=== PATIENT | female | born 1960 | race Caucasian/White ===

== ENCOUNTER → 2016-06-30 | Outpatient (CLI) | payer OTHER ==
[~2016-06-30] MED LIST: ACET-1311 PO; ADVIN50/60 INH; ALBU1AER9 INH; ALBU1NEB10 NEB; ATV5X PO; CALC-20 PO; CHOL100027 PO; CYCL10TA6 PO; CZR25 PO; GABA1CAP4 PO; NTRGSL/4 UT; PLV75 PO; PRT/40 PO; SNG10 PO; TIOTCAP INH; TPRSR/25 PO; VLT50 PO; ZCR40 PO
[2016-06-30 17:49] LABS: BLOOD UREA NITROGEN 7 mg/dl (7-18); BUN/CREATININE RATIO 9.9 (10-20); CALCIUM 9.2 mg/dl (8.5-10.1); CARBON DIOXIDE 32 mmol/L (21-32); CHLORIDE 103 mmol/L (98-107); CREATININE 0.71 mg/dl (0.60-1.20); GLUCOSE 88 mg/dl (70-99); POTASSIUM 4.7 mmol/L (3.5-5.1); SODIUM 141 mmol/L (136-145)
[2016-07-04 01:32] LABS: CK TOTAL 24 U/L (29-143); CK-BB None Detected (None Detected); CK-MB 0 % (<5); CK-MM 100 % (95-100)
== END | disposition home or self-care (01) ==
LOC: C.LABPBG 12:01
PROVIDERS: ATTEND Neuromusculoskeletal Medicine & OMM
DX: M79.669 Pain in unspecified lower leg (principal)

== ENCOUNTER → 2016-07-28 | Outpatient (CLI) | payer OTHER ==
--- NOTE | 2016-07-28 12:35 | DIAGNOSTIC IMAGING REPORT ---
LEFT ANKLE MIN 3 VIEWS ROUTINE CLINICAL HISTORY: M25.579 Ankle [id number] pain COMPARISON: None. DISCUSSION: The bones and joint spaces appear intact. There is no evidence of fracture, dislocation or bony disease. There is no evidence for soft tissue swelling. IMPRESSION: Negative study. Electronically signed by: James Escobedo M.D. 07/28/2016 12:33 PM Dictated Date/Time: 07/28/2016 12:33 PM
== END | disposition home or self-care (01) ==
LOC: C.RAD1850 11:57
PROVIDERS: ATTEND Internal Medicine
DX: M25.572 Pain in left ankle and joints of left foot (principal)

== ENCOUNTER → 2016-08-08 | Outpatient (CLI) | payer OTHER ==
[~2016-08-08] MED LIST changes: +ADVIN25/60 INH; +ALBINS/ INH; +LINA1CAP PO; +PANT40TA2 PO; -PRT/40 PO; +UMEC1INH PO; +VNTHFA/IN INH
--- NOTE | 2016-08-08 11:07 | DIAGNOSTIC IMAGING REPORT ---
DELAYED BONE SCAN OF THE ANKLES AND FEET CLINICAL HISTORY: Left ankle pain and swelling. Evaluate for fracture. COMPARISON STUDY: Left ankle radiographs July 28, 2016. TECHNIQUE: 26.544 mCi of technetium 99m MDP was injected IV at 7:50 AM on August 08, 2016. 3 hours following injection, imaging of the ankles and feet was performed in multiple projections. FINDINGS: There is slight asymmetric increased radiotracer uptake within the left midfoot. This is likely due to mild arthritis. There are no foci of radiotracer uptake to suggest a fracture within the left ankle. IMPRESSION: 1. No evidence of fracture within the left ankle. 2. A few punctate foci of radiotracer uptake within the left midfoot which suggests mild arthritis. Electronically signed by: Peter Alexandre M.D. 08/08/2016 11:05 AM Dictated Date/Time: 08/08/2016 11:02 AM
== END | disposition home or self-care (01) ==
LOC: C.NUCL 07:42
PROVIDERS: ATTEND Physician Assistant Medical
DX: M25.473 Effusion, unspecified ankle (principal); M25.579 Pain in unspecified ankle and joints of unspecified foot

== ENCOUNTER → 2016-11-11 | Outpatient (CLI) | payer OTHER ==
[~2016-11-11] MED LIST changes: -ADVIN25/60 INH; -ALBINS/ INH; -LINA1CAP PO; -PANT40TA2 PO; +PRT/40 PO; -UMEC1INH PO; -VNTHFA/IN INH
[2016-11-11 16:24] LABS: BASO % 0.4 %; BASO ABS # 0.03 K/uL (0-0.2); COMPLETE YES; EOS % 1.9 %; HEMATOCRIT 45.5 % (37-47); IG% 0.3 %; LYMPH % 23.1 %; LYMPH ABS # 1.68 K/uL (1.2-3.4); MEAN CELL VOLUME 91.9 fL (80-100); MEAN CORPUSCULAR HEMOGLOBIN 28.7 pg (25-34); MEAN CORPUSCULAR HGB CONC 31.2 g/dl (32-36); MEAN PLATELET VOLUME 10.3 fL (7.4-10.4); MONO % 7.2 %; NEUT % 67.1 %; PLATELET COUNT 255 K/uL (130-400); RED BLOOD COUNT 4.95 M/uL (4.2-5.4); WHITE BLOOD COUNT 7.26 K/uL (4.8-10.8)
[2016-11-11 16:33] LABS: ALT/SGPT 14 U/L (12-78); AST/SGOT 10 U/L (15-37); BLOOD UREA NITROGEN 6 mg/dl (7-18); BUN/CREATININE RATIO 7.6 (10-20); CALCIUM 9.2 mg/dl (8.5-10.1); CARBON DIOXIDE 33 mmol/L (21-32); CHLORIDE 102 mmol/L (98-107); CREATININE 0.73 mg/dl (0.60-1.20); GLUCOSE 89 mg/dl (70-99); POTASSIUM 3.6 mmol/L (3.5-5.1); SODIUM 142 mmol/L (136-145)
[2016-11-11 16:44] LABS: ALB/GLOB RATIO 0.9 (0.9-2); ALKALINE PHOSPHATASE 161 U/L (45-117)
--- NOTE | 2016-11-21 09:11 | CODING QUERY MEDICAL NECESSITY ---
SUPPORTING DIAGNOSIS NEEDED A supporting diagnosis is required for the test/procedure performed on this patient in order for us to be reimbursed by the patient's insurance. Please provide a supporting diagnosis for the following test/procedure listed below next to the test name along with your signature. *If there is no additional diagnosis for this patient that would support the following test/procedure please document that below next to the test/procedure. Test(s)/Procedure(s) that require a supporting diagnosis: * VITAMIN D, 25- HYDROXY DIAGNOSIS: * VITAMIN B12 DIAGNOSIS: Provider Signature: Date: Thank you Cyn Burnham [employer] Once completed, please kindly fax back to [phone] For questions please call [phone]
== END | disposition home or self-care (01) ==
LOC: C.LABBFT 12:30
PROVIDERS: ATTEND Physician Assistant Medical
DX: E78.5 Hyperlipidemia, unspecified (principal)

== ENCOUNTER → 2016-11-14 | Outpatient (CLI) | payer OTHER ==
[2016-11-17 09:22] LABS: METHYLMALONIC ACID 227 NMOL/L (87-318)
== END | disposition home or self-care (01) ==
LOC: C.LABPBG 12:55
PROVIDERS: ATTEND Physician Assistant Medical
DX: E53.8 Deficiency of other specified B group vitamins (principal)

== ENCOUNTER → 2017-04-05 | Outpatient (CLI) | payer OTHER ==
[~2017-04-05] MED LIST changes: -ACET-1311 PO; +ALBINS/ INH; -ALBU1AER9 INH; -ALBU1NEB10 NEB; -CYCL10TA6 PO; +LINA1CAP PO; +PANT40TA2 PO; -PRT/40 PO; -TIOTCAP INH; +UMEC1INH PO; -VLT50 PO; +VNTHFA/IN INH; -ZCR40 PO
[2017-04-05 17:59] LABS: THYROID STIMULATING HORMONE 1.79 uIu/ml (0.300-4.500)
== END | disposition home or self-care (01) ==
LOC: C.LABPBG 12:15
PROVIDERS: ATTEND Physician Assistant Medical
DX: R63.4 Abnormal weight loss (principal)

== ENCOUNTER → 2017-04-10 | Outpatient (CLI) | payer OTHER ==
--- NOTE | 2017-04-10 09:48 | DIAGNOSTIC IMAGING REPORT ---
ABDOMEN 2VIEW W/PA CHEST RTN CLINICAL HISTORY: R63.4 Weight [id number] pain COMPARISON STUDY: 03/30/2017 FINDINGS: Findings of prior median sternotomy. No focal infiltrate. Diaphragms smooth but somewhat flattened. Bowel pattern is nonobstructive. No abnormal calcifications. IMPRESSION: Negative study of the abdomen. No acute process of the chest. The above report was generated using voice recognition software. It may contain grammatical, syntax or spelling errors. Electronically signed by: James Escobedo M.D. 04/10/2017 9:47 AM Dictated Date/Time: 04/10/2017 9:46 AM
== END | disposition home or self-care (01) ==
LOC: C.RAD 09:12
PROVIDERS: ATTEND Physician Assistant Medical
DX: R63.4 Abnormal weight loss (principal)

== ENCOUNTER → 2017-04-14 | Outpatient (CLI) | payer OTHER ==
[~2017-04-14] MED LIST changes: +OPTIRAY 320 IV PRN
--- NOTE | 2017-04-14 15:58 | DIAGNOSTIC IMAGING REPORT ---
CHEST CT WITH CONTRAST CT DOSE: 366.21 mGycm HISTORY: F17.200 Nicotine [id number] Weight lossR63.0 Decreased appe TECHNIQUE: Multiaxial CT images of the chest were performed following the intravenous administration of contrast. A dose lowering technique was utilized adhering to the principles of ALARA. COMPARISON: Chest CTA 08/18/2014. FINDINGS: The central airways are patent. Moderate emphysema. No pleural effusions. No pneumothorax. Stable 6 mm groundglass nodular density within the right middle lobe on image 170. This may represent a small area of scarring given the stability. Suture material within the right lower lobe is again noted. This remains unchanged. No new focal lung consolidations. There are poststernotomy changes. There are 2 hypervascular lesion seen within the right hepatic lobe with the largest measuring 9 mm. These are too small to characterize but may represent flash filling hemangiomas. The spleen and adrenal glands are unremarkable. A few subcentimeter hypodense nodules within the thyroid gland with associated coarse calcifications. No mediastinal or hilar lymphadenopathy. Normal caliber thoracic aorta. The heart is normal in size. The main pulmonary arteries are patent. IMPRESSION: 1. No significant change compared to the prior study. 2. Moderate emphysema. 3. Stable 6 mm groundglass nodular density within the right middle lobe. This may represent a small area of scarring given the stability. 4. There are 2 hypervascular lesions seen within the right hepatic lobe with the largest measuring 9 mm. These are too small to characterize but may represent flash filling hemangiomas. Electronically signed by: Amandeep Urrutia M.D. 04/14/2017 3:57 PM Dictated Date/Time: 04/14/2017 3:39 PM
--- NOTE | 2017-04-14 16:05 | DIAGNOSTIC IMAGING REPORT ---
ABD/PELVIS IV AND ORAL CONT CLINICAL HISTORY: 56 years-old Female presenting with F17.200 Nicotine [id number] Weight lossR63.0 decreased appetite. TECHNIQUE: Multidetector CT of the abdomen and pelvis was performed after the administration of oral and intravenous contrast. IV contrast: 93 mL of Optiray 320. A dose lowering technique was used consistent with the principles of ALARA (as low as reasonably achievable). COMPARISON: Noncontrast CT from 05/26/2013 and contrast-enhanced CT from 2010. CT DOSE (mGy.cm): The estimated cumulative dose is 366.21) of of the CT chest. 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 Lung bases: Mosaic attenuation could suggest small airways disease. Nodular and linear opacities suggestive of scarring in the lateral basal segment of the right lower lobe. Normal heart size. No pericardial or pleural effusion. Liver: Normal morphology. Focal fat or perfusional variation along the fissure for the ligamentum teres. No other focal lesion. Patent hepatic vasculature. Biliary: Mild intrahepatic biliary ductal prominence. No extrahepatic biliary ductal dilatation. Normal gallbladder. Pancreas: Mild prominence of the pancreatic duct, which measures 2 mm in the pancreatic body tail junction. Spleen: Few parenchymal calcifications evident in the spleen likely indicating prior granulomatous infection. Adrenal glands: Normal. Kidneys and ureters: Normal. No hydronephrosis. Bladder: Incompletely evaluated secondary to underdistention. Pelvic organs: Uterus surgically absent. Bowel: Normal appendix. No bowel obstruction. Peritoneal cavity: No free fluid or intraperitoneal gas. Lymph nodes: No enlarged lymph nodes in the abdomen or pelvis. Vasculature: Atherosclerosis of the normal caliber abdominal aorta. IVC patent. Abdominal wall: Normal. Musculoskeletal: Normal. IMPRESSION: 1. No acute intra-abdominal pathology. No convincing evidence of intra-abdominal malignancy. Electronically signed by: Jason De Oliveira M.D. 04/14/2017 4:04 PM Dictated Date/Time: 04/14/2017 3:56 PM
== END | disposition home or self-care (01) ==
LOC: C.CTS 13:34
PROVIDERS: ATTEND Physician Assistant Medical
DX: J43.9 Emphysema, unspecified (principal); R91.8 Other nonspecific abnormal finding of lung field; K76.9 Liver disease, unspecified; F17.200 Nicotine dependence, unspecified, uncomplicated; R63.0 Anorexia; R83.4 Abnormal immunological findings in cerebrospinal fluid

== ENCOUNTER → 2017-07-04 | Outpatient (CLI) | payer OTHER ==
[~2017-07-04] MED LIST changes: -CZR25 PO; +GABA-1219 PO; -GABA1CAP4 PO; -OPTIRAY 320 IV PRN; +OXYC1CAP5 PO
--- NOTE | 2017-07-04 10:28 | DIAGNOSTIC IMAGING REPORT ---
ULTRASOUND RIGHT UPPER QUADRANT ABDOMEN CLINICAL HISTORY: Right upper quadrant abdominal pain. COMPARISON STUDY: Abdominal CT dated 04/14/2017. TECHNIQUE: Real-time, grayscale, and color flow sonography of the right upper quadrant of the abdomen was performed. Images are reviewed in the transverse and longitudinal planes. FINDINGS: Liver: The liver is normal in size and echotexture. There is no intrahepatic biliary ductal dilatation. The main portal vein is patent. Gallbladder: The gallbladder is normal in appearance. No gallstones are identified. There is no gallbladder wall thickening or pericholecystic fluid. A sonographic Calderon's sign is reportedly absent. The common bile duct measures up to 0.7 cm in diameter. Pancreas: Visualized portions of the pancreatic head and body are normal in appearance. The splenic vein is patent. Right kidney: Survey images of the right kidney demonstrate normal size and echotexture. There is no hydronephrosis. Ascites: None. IMPRESSION: Unremarkable sonographic assessment of the right upper quadrant. No gallstones are identified. Electronically signed by: Mack Perez M.D. 07/04/2017 10:27 AM Dictated Date/Time: 07/04/2017 10:26 AM
== END | disposition home or self-care (01) ==
LOC: C.ULTR 09:25
PROVIDERS: ATTEND Physician Assistant Medical
DX: R10.11 Right upper quadrant pain (principal)

== ENCOUNTER → 2017-07-25 | Outpatient (CLI) | payer OTHER ==
[~2017-07-25] MED LIST changes: +SINCALIDE IV SCH; +SODIUM CHLORIDE 0.9% IV SCH
--- NOTE | 2017-07-25 14:53 | DIAGNOSTIC IMAGING REPORT ---
NUCLEAR HEPATOBILIARY SCAN WITH EJECTION FRACTION IMAGING CLINICAL HISTORY: Right upper quadrant abdominal pain. COMPARISON STUDY: Abdominal ultrasound dated 07/04/2017. TECHNIQUE: Dynamic images of the liver and anterior abdomen were obtained every 5 minutes for a total of 60 minutes following the IV administration of 5.5mCi of technetium 99m Choletec. 0.2 mcg of sincalide was then injected with additional images acquired every 5 minutes for 15 minutes to calculate the gallbladder ejection fraction. Ejection fraction was calculated at 17 minutes. The patient developed cramping due to sincalide administration. The examination is discontinued at this time. FINDINGS: The hepatobiliary scan shows prompt and homogeneous hepatic uptake. There is visualized activity within the intra and extrahepatic biliary tree at 10 minutes, and within the gallbladder at 15 minutes. There is normal biliary to bowel transit, with small bowel visualized by 25 minutes. On the sincalide imaging, the gallbladder ejection fraction was measured at 81%. IMPRESSION: 1. Unremarkable nuclear hepatobiliary scan. There is no scintigraphic evidence of cholecystitis. 2. The gallbladder ejection fraction measured 81% by 17 minutes which is normal. 3. The patient developed abdominal cramping due to sincalide administration and the examination was discontinued. Electronically signed by: Mack Perez M.D. 07/25/2017 2:51 PM Dictated Date/Time: 07/25/2017 2:49 PM
== END | disposition home or self-care (01) ==
LOC: C.NUCL 12:47
PROVIDERS: ATTEND Physician Assistant Medical
DX: R10.11 Right upper quadrant pain (principal)

== ENCOUNTER → 2017-08-11 | Outpatient (CLI) | payer OTHER ==
[~2017-08-11] MED LIST changes: +OPTIRAY 320 IV PRN; -SINCALIDE IV SCH; -SODIUM CHLORIDE 0.9% IV SCH
[2017-08-11 14:48] LABS: BASO % 0.8 %; BASO ABS # 0.05 K/uL (0-0.2); EOS % 1.6 %; HEMATOCRIT 45.7 % (37-47); HEMOGLOBIN 14.7 g/dL (12.0-16.0); IG# 0.01 K/uL (0.00-0.02); LYMPH % 26.9 %; LYMPH ABS # 1.69 K/uL (1.2-3.4); MEAN CELL VOLUME 88.7 fL (80-100); MEAN CORPUSCULAR HEMOGLOBIN 28.5 pg (25-34); MEAN CORPUSCULAR HGB CONC 32.2 g/dl (32-36); MEAN PLATELET VOLUME 11.3 fL (7.4-10.4); MONO % 6.7 %; MONO ABS # 0.42 K/uL (0.11-0.59); NEUT % 63.8 %; NEUT ABS # 4.02 K/uL (1.4-6.5); PLATELET COUNT 229 K/uL (130-400); RED CELL DISTRIBUTION WIDTH CV 13.6 % (11.5-14.5); RED CELL DISTRIBUTION WIDTH SD 44.8 fL (36.4-46.3); WHITE BLOOD COUNT 6.29 K/uL (4.8-10.8)
--- NOTE | 2017-08-11 14:49 | DIAGNOSTIC IMAGING REPORT ---
CT OF THE ABDOMEN AND PELVIS WITH CONTRAST CLINICAL HISTORY: Right upper quadrant abdominal pain and weight loss. COMPARISON STUDY: CT of the abdomen and pelvis April 14, 2017 and right upper quadrant ultrasound July 04, 2017. TECHNIQUE: Following IV administration of 94 mL of Optiray-320, axial images of the abdomen and pelvis were obtained from the lung bases to the proximal femurs. Images were reviewed in the axial, sagittal, and coronal planes. IV contrast was administered without complication. A dose lowering technique was utilized adhering to the principles of ALARA. Oral contrast was administered. CT DOSE: 240.77 mGy.cm FINDINGS: Subpleural opacity within the lateral basilar segment of the right lower lobe is unchanged since exam of August 18, 2014. This likely reflects scarring. No pneumatosis, free air or portal venous gas is present. Liver, spleen, adrenal glands, kidneys and pancreas are unremarkable. There is no biliary or pancreatic ductal dilatation. There is no peripancreatic or pericholecystic infiltration. There is moderate plaque of the abdominal aorta which is normal in caliber. There is no hydronephrosis. The caliber and wall thickness of small and large bowel are normal. There is decreased sensitivity for detection of mucosal lesions given CT technique but none identified. The appendix is normal. There is no lymphadenopathy or ascites. No suspicious osseous lesion is present. No ascites is present. IMPRESSION: 1. No acute process within the abdomen or pelvis. 2. No bowel obstruction. Normal appendix. 3. No abdominal or pelvic lymphadenopathy. 4. Moderate atherosclerotic plaque of the abdominal aorta and branch vessels. Patent mesenteric vessels. Electronically signed by: Peter Alexandre M.D. 08/11/2017 2:48 PM Dictated Date/Time: 08/11/2017 2:40 PM
[2017-08-11 15:27] LABS: ALBUMIN 3.8 gm/dl (3.4-5.0); ALT/SGPT 16 U/L (12-78); AST/SGOT 16 U/L (15-37); BLOOD UREA NITROGEN 5 mg/dl (7-18); CALCIUM 9.5 mg/dl (8.5-10.1); CARBON DIOXIDE 35 mmol/L (21-32); CREATININE 0.78 mg/dl (0.60-1.20); GLUCOSE 95 mg/dl (70-99); LIPASE 72 U/L (73-393); POTASSIUM 4.8 mmol/L (3.5-5.1); SODIUM 139 mmol/L (136-145)
[2017-08-11 15:30] LABS: ALKALINE PHOSPHATASE 153 U/L (45-117); TOTAL PROTEIN 7.8 gm/dl (6.4-8.2)
== END | disposition home or self-care (01) ==
LOC: C.CTS 14:06
PROVIDERS: ATTEND Surgery
DX: R63.4 Abnormal weight loss (principal); R10.11 Right upper quadrant pain; I70.0 Atherosclerosis of aorta

== ENCOUNTER → 2017-09-11 | Outpatient (CLI) | payer OTHER ==
[~2017-09-11] MED LIST changes: -OPTIRAY 320 IV PRN
== END | disposition home or self-care (01) ==
LOC: C.MAMM 13:06
PROVIDERS: ATTEND Physician Assistant Medical
DX: M85.89 Other specified disorders of bone density and structure, multiple sites (principal); M81.0 Age-related osteoporosis without current pathological fracture

== ENCOUNTER 2017-11-26 09:34 | Inpatient (IN) | payer OTHER ==
[~2017-11-26] VITALS: Ht 152.4 cm; Wt 43.7 kg
[~2017-11-26 09:34] MED LIST changes: +CYAN100020 PO
[2017-11-26 10:16] LABS: BASO % 0.5 %; BASO ABS # 0.03 K/uL (0-0.2); EOS % 0.7 %; EOS ABS # 0.04 K/uL (0-0.5); HEMATOCRIT 45.6 % (37-47); HEMOGLOBIN 14.5 g/dL (12.0-16.0); IG# 0.02 K/uL (0.00-0.02); LYMPH % 13.8 %; LYMPH ABS # 0.81 K/uL (1.2-3.4); MEAN CORPUSCULAR HEMOGLOBIN 26.7 pg (25-34); MEAN CORPUSCULAR HGB CONC 31.8 g/dl (32-36); MEAN PLATELET VOLUME 10.4 fL (7.4-10.4); MONO % 12.2 %; MONO ABS # 0.72 K/uL (0.11-0.59); NEUT % 72.5 %; NEUT ABS # 4.27 K/uL (1.4-6.5); PLATELET COUNT 295 K/uL (130-400); RED CELL DISTRIBUTION WIDTH CV 14.8 % (11.5-14.5); RED CELL DISTRIBUTION WIDTH SD 45.2 fL (36.4-46.3); WHITE BLOOD COUNT 5.89 K/uL (4.8-10.8)
--- NOTE | 2017-11-26 10:24 | DIAGNOSTIC IMAGING REPORT ---
CHEST ONE VIEW PORTABLE CLINICAL HISTORY: Evaluate Fever/Sepsis dyspnea COMPARISON STUDY: 04/10/2017 FINDINGS: Mild cardia megaly post median sternotomy. Small bilateral pleural effusions. Mild prominence of pulmonary vasculature. IMPRESSION: Congestive heart failure The above report was generated using voice recognition software. It may contain grammatical, syntax or spelling errors. Electronically signed by: James Escobedo M.D. 11/26/2017 10:23 AM Dictated Date/Time: 11/26/2017 10:22 AM
[2017-11-26 10:34] LABS: INR 1.2 (0.9-1.1); PTT PATIENT 25.1 SECONDS (21.0-31.0)
[2017-11-26 10:46] LABS: ALBUMIN 2.6 gm/dl (3.4-5.0); CALCIUM 7.3 mg/dl (8.5-10.1); CKMB 1.4 ng/ml (0.5-3.6); CREATININE 0.94 mg/dl (0.60-1.20); POTASSIUM 3.6 mmol/L (3.5-5.1); TOTAL PROTEIN 6.9 gm/dl (6.4-8.2)
[2017-11-26] MEDS ORDERED: GABA-113 PO ×2 (10:53)
[2017-11-26] MEDS ORDERED: FUROSEMIDE 40 MG/4 ML VIAL IV STA (11:25)
--- NOTE | 2017-11-26 11:28 | DIAGNOSTIC IMAGING REPORT ---
VENOUS DOPPLER LWR EXT BILA HISTORY: Pain. Edema. swelling COMPARISON STUDY: None. FINDINGS: There is normal compressibility, flow, and augmentation within the bilateral lower extremity deep venous systems. IMPRESSION: No DVT within the right or left lower extremity. The above report was generated using voice recognition software. It may contain grammatical, syntax or spelling errors. Electronically signed by: James Escobedo M.D. 11/26/2017 11:27 AM Dictated Date/Time: 11/26/2017 11:27 AM
--- NOTE | 2017-11-26 11:31 | EMERGENCY ROOM VISIT NOTE ---
History Report prepared by Jaswinder: Nicole Sweet Under the Supervision of: Dr. Bryant Skinner D.O. First contact with patient: 09:58 Chief Complaint: SWELLING TO EXTREMITY Stated Complaint: FEET/ANKLE SWELLING AND BURNING AND R EYE SWOLLEN History of Present Illness The patient is a 57 year old female who presents to the Emergency Room with complaints of swelling in her feet and ankles that has worsened over the past 2 weeks. She notes that she could not put on her shoes yesterday, and she states that this morning the right side of her face was swollen. She also notes that if she has to walk for a while, she often has to stop because her legs feel " too heavy." The patient reports she has already seen her PCP for the swelling who thought it might be due to her osteoporosis medication. The patient states that her PCP encouraged her to stop taking her osteoporosis medication to see if that alleviates the swelling. The patient states that she has not taken her osteoporosis medication in 3 weeks. The patient states that she was supposed to see her PCP again on December 07 but states that she could not wait that long as her swelling has been worsening. The patient also complains of a tingling in her lower extremities and a slight cough. She states that she has also noticed some chest tightness, but reports that she gets this tightness intermittently. She also reports that she recently gained 6 pounds. The patient denies feeling short of breath. She states that she has a history of a mitral valve repair because she had fluid building in up in her heart. Per family, the patient also has a history of gallbladder problems. The patient states that she has not had recent blood work done and denies using compression stockings. Source of History: patient Onset: 2 weeks ago Position: ankle (bilateral), foot (bilateral) Quality: tingling, other (swelling) Timing: worsening Associated Symptoms: + cough, + chest pain (tightness across chest), No SOB Note: additional symptoms: weight gain Review of Systems See HPI for pertinent positives & negatives. A total of 10 systems reviewed and were otherwise negative. Past Medical & Surgical Medical Problems: (1) Asthma (2) Bronchitis (3) Emphysema lung (4) Gallbladder problem (5) Heart disease (6) Hypertension Surgical Problems: (1) H/O: hysterectomy (2) S/P MVR (mitral valve replacement) Family History FH: hypertension FH: lung disease Heart disease Social History Smoking Status: Current Every Day Smoker Marital Status: single, Occupation Status: employed, disabled Current/Historical Medications Scheduled Calcium Carbonate-Vitamin D (Calcium 600 + D), 1 TAB PO DAILY Cholecalciferol (Vitamin D 1000 Unit), 1 TAB PO DAILY Clopidogrel Bisulfate (Clopidogrel), 75 MG PO HS Cyanocobalamin (Vitamin B12), 1 TAB PO QAM Fluticasone Prop/Salmeterol (Advair Diskus 500/50 60 Dose), 1 PUFF INH BID Gabapentin (Neurontin), 600 MG PO QAM Gabapentin (Neurontin), 900 MG PO QPM Linaclotide (Linzess), 145 MCG PO QAM Lorazepam (Lorazepam), 0.5 MG PO HS Metoprolol Succinate (Metoprolol Succinate ER), 25 MG PO QAM Montelukast Sod (Montelukast Sodium), 10 MG PO QAM Pantoprazole (Pantoprazole Sodium), 40 MG PO BID Umeclidinium [place] (Incruse Ellipta), 1 PUFF PO QAM Scheduled PRN Albuterol Hfa (Ventolin Hfa), 2-4 PUFFS INH Q6H PRN for SOB/Wheezing Albuterol Sulf (Proventil 0.083% 2.5MG/3ML), 2.5 MG INH Q4 PRN for SOB/Wheezing Nitroglycerin (Nitrostat), 0.4 MG UT UD PRN for Chest Pain Oxycodone Hcl (Oxycodone Hcl), 1-2 CAP PO QID PRN for Pain Allergies Coded Allergies: Aspirin (Verified Allergy, Mild, HIVES, 11/26/17) Hydrochlorothiazide (Unverified Allergy, Unknown, SICK IN STOMACH AND RASH , 11/26/17) Physical Exam Vital Signs Date Time Temp Pulse Resp B/P (MAP) Pulse Ox O2 Delivery O2 Flow Rate FiO2 11/26/17 11:43 91 18 171/76 97 Room Air 11/26/17 10:11 92 Room Air 11/26/17 09:46 36.8 86 16 153/52 92 Room Air Physical Exam CONSTITUTIONAL/VITAL SIGNS: Reviewed / noted above. GENERAL: Non-toxic in appearance. INTEGUMENTARY: Warm, dry, and [place]. HEAD: Normocephalic. EYES: without scleral icterus or trauma. ENT/OROPHARYNX: clear and moist. LYMPHADENOPATHY/NECK: Is supple without lymphadenopathy or meningismus. RESPIRATORY: Lungs clear and equal. CARDIOVASCULAR: Regular rate and rhythm. GI/ABDOMEN: Soft and nontender. No organomegaly or pulsatile mass. No rebound or guarding. Normal bowel sounds. EXTREMITIES: Warm and well perfused. Bilateral pedal edema involving ankles and feet. BACK: No CVA tenderness. NEUROLOGICAL: Intact without focal deficits. PSYCHIATRIC: normal affect. MUSCULOSKELETAL: Normally developed with good muscle tone. Medical Decision & Procedures ER Provider Diagnostic Interpretation: Radiology results as stated below per my review and radiologist interpretation: CHEST ONE VIEW PORTABLE CLINICAL HISTORY: Evaluate Fever/Sepsis dyspnea COMPARISON STUDY: 04/10/2017 FINDINGS: Mild cardia megaly post median sternotomy. Small bilateral pleural effusions. Mild prominence of pulmonary vasculature. IMPRESSION: Congestive heart failure The above report was generated using voice recognition software. It may contain grammatical, syntax or spelling errors. Electronically signed by: James Escobedo M.D. 11/26/2017 10:23 AM Dictated Date/Time: 11/26/2017 10:22 AM VENOUS DOPPLER LWR EXT BILA HISTORY: Pain. Edema. swelling COMPARISON STUDY: None. FINDINGS: There is normal compressibility, flow, and augmentation within the bilateral lower extremity deep venous systems. IMPRESSION: No DVT within the right or left lower extremity. The above report was generated using voice recognition software. It may contain grammatical, syntax or spelling errors. Electronically signed by: James Escobedo M.D. 11/26/2017 11:27 AM Dictated Date/Time: 11/26/2017 11:27 AM Laboratory Results 11/26/17 10:00 Red Blood Count 5.43, Mean Corpuscular Volume 84.0, Mean Corpuscular Hemoglobin 26.7, Mean Corpuscular Hemoglobin Concent 31.8, Mean Platelet Volume 10.4, Neutrophils (%) (Auto) 72.5, Lymphocytes (%) (Auto) 13.8, Monocytes (%) (Auto) 12.2, Eosinophils (%) (Auto) 0.7, Basophils (%) (Auto) 0.5, Neutrophils # (Auto ) 4.27, Lymphocytes # (Auto) 0.81, Monocytes # (Auto) 0.72, Eosinophils # (Auto ) 0.04, Basophils # (Auto) 0.03 11/26/17 10:00 Test 11/26/17 10:00 White Blood Count 5.89 K/uL (4.8-10.8) Red Blood Count 5.43 M/uL (4.2-5.4) Hemoglobin 14.5 g/dL (12.0-16.0) Hematocrit 45.6 % (37-47) Mean Corpuscular Volume 84.0 fL (80-100) Mean Corpuscular Hemoglobin 26.7 pg (25-34) Mean Corpuscular Hemoglobin Concent 31.8 g/dl (32-36) Platelet Count 295 K/uL (130-400) Mean Platelet Volume 10.4 fL (7.4-10.4) Neutrophils (%) (Auto) 72.5 % Lymphocytes (%) (Auto) 13.8 % Monocytes (%) (Auto) 12.2 % Eosinophils (%) (Auto) 0.7 % Basophils (%) (Auto) 0.5 % Neutrophils # (Auto) 4.27 K/uL (1.4-6.5) Lymphocytes # (Auto) 0.81 K/uL (1.2-3.4) Monocytes # (Auto) 0.72 K/uL (0.11-0.59) Eosinophils # (Auto) 0.04 K/uL (0-0.5) Basophils # (Auto) 0.03 K/uL (0-0.2) RDW Standard Deviation 45.2 fL (36.4-46.3) RDW Coefficient of Variation 14.8 % (11.5-14.5) Immature Granulocyte % (Auto) 0.3 % Immature Granulocyte # (Auto) 0.02 K/uL (0.00-0.02) Prothrombin Time 12.1 SECONDS (9.0-12.0) Prothromb Time International Ratio 1.2 (0.9-1.1) Activated Partial Thromboplast Time 25.1 SECONDS (21.0-31.0) Partial Thromboplastin Ratio 1.0 Anion Gap 5.0 mmol/L (3-11) Est Creatinine Clear Calc Drug Dose 47.5 ml/min Estimated GFR () 78.6 Estimated GFR (Non- 67.8 BUN/Creatinine Ratio 8.7 (10-20) Calcium Level 7.3 mg/dl (8.5-10.1) Total Bilirubin 0.7 mg/dl (0.2-1) Direct Bilirubin 0.3 mg/dl (0-0.2) Aspartate Amino Transf (AST/SGOT) 17 U/L (15-37) Alanine Aminotransferase (ALT/SGPT) 18 U/L (12-78) Alkaline Phosphatase 154 U/L (45-117) Total Creatine Kinase 26 U/L (26-192) Creatine Kinase MB 1.4 ng/ml (0.5-3.6) Creatine Kinase MB Ratio 5.4 (0-3.0) Troponin I 0.016 ng/ml (0-0.045) Pro-B-Type Natriuretic Peptide 44389 pg/ml (0-900) Total Protein 6.9 gm/dl (6.4-8.2) Albumin 2.6 gm/dl (3.4-5.0) Lipase 86 U/L (73-393) Thyroid Stimulating Hormone (TSH) 3.100 uIu/ml (0.300-4.500) Laboratory results as stated above per my review. Medications Administered Medications (Trade) Dose Ordered Sig/Kalpesh Route Start Time Stop Time Status Last Admin Dose Admin Furosemide (Lasix Inj) 40 mg NOW STAT IV 11/26/17 11:25 11/26/17 11:26 DC 11/26/17 11:49 40 MG ECG Per My Interpretation Indication: other (extremity edema) Rate (beats per minute): 82 Rhythm: sinus rhythm Findings: no ectopy, other (no ST elevation) Comparison ECG Date: T wave inversions in the anterior leads are new compared to 03/30/2017. ED Course 1005: Previous medical records were reviewed. The patient was evaluated in room A4B. A complete history and physical examination was performed. 1125: Ordered Lasix Inj 40 mg IV. 1131: On reevaluation, the patient is resting. I discussed the results and findings with her. She verbalized agreement of the treatment plan. [facility] The patient will be evaluated for further management and care. Medical Decision Differential diagnosis: Etiologies such as DVT, musculoskeletal, infection, joint effusion, trauma, lymphedema, idiopathic, CHF, as well as others were entertained. This is a 57-year-old female who presents to the ED with a chief complaint of bilateral foot and ankle swelling. The patient states that is been going on for several weeks. She also reported some chest tightness. She states that she saw her PCP and her symptoms were felt to be medication related. She has not had improvement in her symptoms as of yet. The patient has no additional complaints. Denies any chest pains or shortness of breath. She has not had any fevers or illness. She has a history of mitral valve replacement surgery. Her vital signs reveal some mild hypertension. Her exam reveals some pedal edema in the feet primarily and somewhat in the ankles. There is no edema noted above the ankles. The patient does not have any heart murmurs on exam. Her abdomen is soft and tender. A chest x-ray reveals findings suggesting congestive heart failure. There is mild cardiomegaly and small bilateral pleural effusions. Mild prominence of the vasculature. CBC is normal. Kidney function is normal. Electrolytes are unremarkable. Calcium level slightly low. BNP is elevated. TSH was normal. EKG shows a normal sinus rhythm without acute ischemic changes. There are new T-wave inversions in the anterior leads compared to March 2017. The patient was treated with Lasix IV. She will be seen by the hospitalist for further inpatient evaluation and care. Medication Reconcilliation Current Medication List: was personally reviewed by me Blood Pressure Screening Patient's blood pressure: Elevated blood pressure Blood pressure disposition: Referred to PCP will be monitored by hospitalist Consults Time Called: 1130 Consulting Physician: Dr. Lowery - [facility] Hospitalist Returned Call: [phone] Discussed the patient's case. The patient will be evaluated for further treatment and disposition. Impression Primary Impression: CHF exacerbation Additional Impressions: Precordial chest pain ST segment changes on electrocardiogram Edema Scribe Attestation The scribe's documentation has been prepared under my direction and personally reviewed by me in its entirety. I confirm that the note above accurately reflects all work, treatment, procedures, and medical decision making performed by me. Departure Information Dispostion Being Evaluated By Hospitalist Referrals Barrington Joshi M.D. (PCP) Patient Instructions [facility] Problem Qualifiers
[2017-11-26 12:11] VITALS: O2SAT 97; Ht 152.4 cm; Wt 43.7 kg
[2017-11-26] MEDS ORDERED: ACETAMINOPHEN 325 MG TAB PO PRN (12:30)
[2017-11-26] MEDS ORDERED: ALBUTEROL 0.083% NEBU SOLN 3 ML VIAL INH PRN (12:30)
[2017-11-26] MEDS ORDERED: ONDANSETRON INJ 2 MG/ML 2 ML VIAL IV PRN (12:30)
[2017-11-26] MEDS ORDERED: MAGNESIUM HYDROXIDE SUSP 30 ML UDC PO PRN (12:30)
[2017-11-26] MEDS ORDERED: ALBUTEROL HFA 8 GM INHALER INH PRN (12:30)
[2017-11-26] MEDS ORDERED: NITROGLYCERIN 0.4 MG SL PER TAB CHARGE UT PRN (12:30)
--- NOTE | 2017-11-26 12:41 | History and Physical ---
History & Physical Date & Time of Service: Nov 26, 2017 at 12:27 Chief Complaint: Feet/Ankle Swelling And Burning And R Eye Swollen Primary Care Physician: Barrington Joshi M.D. History of Present Illness Source: patient, clinic records 57 y/o F c/o LE swelling. Pt states she started having b/l LE swelling about two weeks ago and it has been getting worse since that time. She states it is less in the AM, but still has swelling. By the end of the day, her feet are 2- 3x the usual size. Swelling in the AM is usually just in the feet, but by the end of the day it is up to around mid-calf. This started about 2 weeks after she started weekly fosamax dosing for osteoporosis. She went to her PCP and was instructed to stop taking the fosamax, which was about 2 weeks ago. She has noted no improvement in the swelling, and in fact feels it is getting worse. She was to have a f/u with her PCP for this issue, but since it was worsening, she came to the ED instead. Pt also felt that her face was swollen on the R side this AM, although this is better now. She has had no SOB at any time with this. She is up and down stairs about 8-10 times a day to take her dog out and has had no issues with this either in terms of breathing. She does have an occasional cough and this causes chest tightness, but it is not noted when she is not coughing and resolves after she stops coughing. She has never had swelling like this in the past. Pt also notes that she has gained 6-7 lbs over the last week. She weighs herself regularly. Pt follows with Dr. De La Rosa and Krystian Valles as she is s/p MVR in 2008. She had an ECHO in their office in July which showed EF 40-45%, hypokinesis of the LV, trace MR, and mild TR, without signs of CHF. Pt denies fever, abd pain, n/v/c/d, LE pain. She has been eating without issue and feels that her appetite has actually been improved lately. Past Medical/Surgical History COPD MVR 2008 HTN RLS Anxiety GERD Hyperlipidemia Family History Family history was reviewed; no changes noted. Father: [place], [place] Social History Smoking Status: Current Every Day Smoker (1/2ppd) Alcohol Use: none Drug Use: none Occupational Status: employed, disabled Immunizations History of Influenza Vaccine: Yes Influenza Vaccine Date: May 17, 2007 History of Tetanus Vaccine?: Yes Tetanus Immunization Date: Feb 12, 2006 History of Pneumococcal: Yes Pneumococcal Date: May 18, 2007 History of Hepatitis B Vaccine: No Allergies Coded Allergies: Aspirin (Verified Allergy, Mild, HIVES, 11/26/17) Hydrochlorothiazide (Unverified Allergy, Unknown, SICK IN STOMACH AND RASH , 11/26/17) Home Medications Scheduled Calcium Carbonate-Vitamin D (Calcium 600 + D), 1 TAB PO DAILY Cholecalciferol (Vitamin D 1000 Unit), 1 TAB PO DAILY Clopidogrel Bisulfate (Clopidogrel), 75 MG PO HS Cyanocobalamin (Vitamin B12), 1 TAB PO QAM Fluticasone Prop/Salmeterol (Advair Diskus 500/50 60 Dose), 1 PUFF INH BID Gabapentin (Neurontin), 600 MG PO QAM Gabapentin (Neurontin), 900 MG PO QPM Linaclotide (Linzess), 145 MCG PO QAM Lorazepam (Lorazepam), 0.5 MG PO HS Metoprolol Succinate (Metoprolol Succinate ER), 25 MG PO QAM Montelukast Sod (Montelukast Sodium), 10 MG PO QAM Pantoprazole (Pantoprazole Sodium), 40 MG PO BID Umeclidinium [place] (Incruse Ellipta), 1 PUFF PO QAM Scheduled PRN Albuterol Hfa (Ventolin Hfa), 2-4 PUFFS INH Q6H PRN for SOB/Wheezing Albuterol Sulf (Proventil 0.083% 2.5MG/3ML), 2.5 MG INH Q4 PRN for SOB/Wheezing Nitroglycerin (Nitrostat), 0.4 MG UT UD PRN for Chest Pain Oxycodone Hcl (Oxycodone Hcl), 1-2 CAP PO QID PRN for Pain Review of Systems Pertinent positives and negatives reviewed in HPI--all others negative Physical Exam Vital Signs Date Time Temp Pulse Resp B/P (MAP) Pulse Ox O2 Delivery O2 Flow Rate FiO2 11/26/17 11:43 91 18 171/76 97 Room Air 11/26/17 10:11 92 Room Air 11/26/17 09:46 36.8 86 16 153/52 92 Room Air General Appearance: no apparent distress, + thin Head: normocephalic, atraumatic Eyes: normal inspection, sclerae normal Respiratory/Chest: no respiratory distress, + crackles Cardiovascular: regular rate, rhythm, normal peripheral pulses Abdomen/GI: non tender, soft Extremities/Musculoskelatal: no calf tenderness, + swelling (b/l feet ) Neurologic/Psych: alert, normal mood/affect, oriented x 3 Skin: normal color, warm/dry Diagnostics Laboratory Results Results Past 24 Hours Test 11/26/17 10:00 Range/Units White Blood Count 5.89 4.8-10.8 K/uL Red Blood Count 5.43 4.2-5.4 M/uL Hemoglobin 14.5 12.0-16.0 g/dL Hematocrit 45.6 37-47 % Mean Corpuscular Volume 84.0 80-100 fL Mean Corpuscular Hemoglobin 26.7 25-34 pg Mean Corpuscular Hemoglobin Concent 31.8 32-36 g/dl Platelet Count 295 130-400 K/uL Mean Platelet Volume 10.4 7.4-10.4 fL Neutrophils (%) (Auto) 72.5 % Lymphocytes (%) (Auto) 13.8 % Monocytes (%) (Auto) 12.2 % Eosinophils (%) (Auto) 0.7 % Basophils (%) (Auto) 0.5 % Neutrophils # (Auto) 4.27 1.4-6.5 K/uL Lymphocytes # (Auto) 0.81 1.2-3.4 K/uL Monocytes # (Auto) 0.72 0.11-0.59 K/uL Eosinophils # (Auto) 0.04 0-0.5 K/uL Basophils # (Auto) 0.03 0-0.2 K/uL RDW Standard Deviation 45.2 36.4-46.3 fL RDW Coefficient of Variation 14.8 11.5-14.5 % Immature Granulocyte % (Auto) 0.3 % Immature Granulocyte # (Auto) 0.02 0.00-0.02 K/uL Prothrombin Time 12.1 9.0-12.0 SECONDS Prothromb Time International Ratio 1.2 0.9-1.1 Activated Partial Thromboplast Time 25.1 21.0-31.0 SECONDS Partial Thromboplastin Ratio 1.0 Sodium Level 137 136-145 mmol/L Potassium Level 3.6 3.5-5.1 mmol/L Chloride Level 97 98-107 mmol/L Carbon Dioxide Level 35 21-32 mmol/L Anion Gap 5.0 3-11 mmol/L Blood Urea Nitrogen 8 7-18 mg/dl Creatinine 0.94 0.60-1.20 mg/dl Est Creatinine Clear Calc Drug Dose 47.5 ml/min Estimated GFR () 78.6 Estimated GFR (Non- 67.8 BUN/Creatinine Ratio 8.7 10-20 Random Glucose 97 70-99 mg/dl Calcium Level 7.3 8.5-10.1 mg/dl Total Bilirubin 0.7 0.2-1 mg/dl Direct Bilirubin 0.3 0-0.2 mg/dl Aspartate Amino Transf (AST/SGOT) 17 15-37 U/L Alanine Aminotransferase (ALT/SGPT) 18 12-78 U/L Alkaline Phosphatase 154 45-117 U/L Total Creatine Kinase 26 26-192 U/L Creatine Kinase MB 1.4 0.5-3.6 ng/ml Creatine Kinase MB Ratio 5.4 0-3.0 Troponin I 0.016 0-0.045 ng/ml Pro-B-Type Natriuretic Peptide 89220 0-900 pg/ml Total Protein 6.9 6.4-8.2 gm/dl Albumin 2.6 3.4-5.0 gm/dl Lipase 86 73-393 U/L Thyroid Stimulating Hormone (TSH) 3.100 0.300-4.500 uIu/ml Diagnostic Radiology CXR: CHF LE US: neg for DVT b/l EKG T wave inversions anteriorly, not seen prior Impression Assessment and Plan 57 y/o F who was admitted on 11/26 with new onset CHF. CHF: acute exacerbation with hx of MVR ECHO [place] [facility] [place]: EF 40-45%, hypokinesis of the LV, trace MR, and mild TR, without signs of CHF Repeat ECHO pending BNP elevated Trop with slight elevation at 0.016, serials pending EKG with T wave inversions anteriorly, not seen prior CXR: CHF LE US: neg for DVT b/l Lasix 40mg IV in the ED, will repeat in AM Add K given low normal K on admission at 3.6 Cardiology c/s pending MVR/HTN: as above, continue plavix Hyperlipidemia: continue home meds Lipid panel in AM COPD: continue home meds RLS: continue gabapentin Anxiety: continue home ativan dosing Tobacco abuse: 1/2ppd, declines need for nicotine patch, will order PRN Advised cessation, likely the cause of above cardiac issues Other: Full cardiac resuscitation, does not want intubated AHA diet SCDs for DVT proph Resuscitation Status VTE Prophylaxis Will order VTE Prophylaxis: Yes Additional Copies To Barrington Joshi M.D.
[2017-11-26] MEDS ORDERED: NICOTINE 14 MG/24 HR TDSY TD PRN (12:45)
[2017-11-26 13:17] VITALS: BP 151/80; PULSE 83; TEMP 36.6; O2SAT 95
[2017-11-26 15:42] VITALS: BP 146/74; PULSE 88; TEMP 37; O2SAT 100
[2017-11-26] MEDS: OXYCODONE HCL IR 5 MG TAB (IMMEDIATE RELEASE) PO PRN ×2 (15:55→21:35)
[2017-11-26 19:30] VITALS: BP 147/70; PULSE 83; TEMP 36.9; O2SAT 95
[2017-11-26 20:00] VITALS: O2SAT 95
[2017-11-26] MEDS: FLUTICASONE/SALMETEROL (ADVAIR) 500/50 INH 14 PUFF INH SCH (20:07)
[2017-11-26] MEDS: GABAPENTIN 300 MG CAP PO SCH (20:09)
[2017-11-26] MEDS: PANTOprazole SOD 40 MG TAB PO SCH (20:10)
[2017-11-26] MEDS: CLOPIDOGREL BISULFATE 75 MG TAB PO SCH (20:10)
[2017-11-26] MEDS: LORAZEPAM 0.5 MG TAB PO SCH (20:13)
[2017-11-27] VITALS (9 sets, daily range): BP systolic 101–134; BP diastolic 63–75; PULSE 79–111; TEMP 36.8–37.1; O2SAT 78–100
[2017-11-27 06:29] LABS: CALCIUM 7.1 mg/dl (8.5-10.1); CREATININE 0.81 mg/dl (0.60-1.20); POTASSIUM 2.9 mmol/L (3.5-5.1)
--- NOTE | 2017-11-27 07:45 | Family Medicine Progress Note ---
Progress Note Date of Service Nov 27, 2017. Subjective Pt evaluation today including: conversation w/ patient, conversation w/ family Telemetry showed normal sinus rhythm in the 80s. Pt sees Dr. De La Rosa in [facility] [place]. Pt states she is chronically tanned. Portions of the HPI were confirmed - no SOB, no chest pain, she doesn't chronically swell in the LE. She is trying to cut back on smoking - down to 5-6 cigarettes per day in the setting of 40+ pack years. She states that her LE swelling has mildly improved from yesterday. Is down 1.2L since admission. Pt has not drastically increased her sodium intake recently - we did extensively review her diet. Constitutional: No fever, No chills, No sweats ENT: No hearing loss Respiratory: No cough, No sputum, No wheezing, No shortness of breath Cardiovascular: + edema, No chest pain, No orthopnea Abdomen: No pain, No nausea, No vomiting, No diarrhea, No constipation Female : No dysuria Objective Physical Exam General Appearance: WD/WN, no apparent distress Eyes: normal inspection, PERRL ENT: normal ENT inspection, hearing grossly normal Neck: supple, no adenopathy Respiratory/Chest: chest non-tender, lungs clear, normal breath sounds, no respiratory distress, no accessory muscle use Cardiovascular: regular rate, rhythm, no gallop, no JVD, no murmur, + pertinent finding (there is a well healed sternal scar from a mitral valve repair) Abdomen: normal bowel sounds, non tender, soft, no organomegaly, no pulsatile mass Extremities: normal range of motion, non-tender, normal inspection, no calf tenderness, + swelling (LE edema in the feet bilaterally, 2+ in the LE. ) Neurologic/Psychiatric: electronic systems security assessment II-XII nml as tested, no motor/sensory deficits, alert, normal mood/affect, oriented x 3 Skin: + pertinent finding (pt is tanned - this is chronic) Assessment and Plan 57F who was admitted on 11/26 with new onset CHF. Pt is diuresing well. 1.2L out so far. Pending echo and cardiology recommendations. Bilateral LE edema 2/2 cardiomyopathy, suspected class II CHF in setting of Mitral Valve Repair. ECHO in 2014 showed an EF of 50-55% with normal LV size and wall thickness. Moderate aortic regurgitation. Bioprosthetic mitral valve. Per previous cards consult in 2015 patient has "Cardiomyopathy, non-ischemic, long standing with variable EF measurements: Symptoms compatible with class II CHF." BNP on admission is 13,000 Trops peaked at 0.016. EKG on admission with T wave inversions anteriorly, not seen prior, These persist on today's EKG. Pt was given 40mg IV Lasix in the ER, and 20mg IV Lasix today. Report minimal LE improvement. US negative for DVT. Continue cardiac meds including Toprol XL and Plavix. Appreciate cardiology recs (sees Dr. Harrell/Krystian Valles) and official read on echocardiogram. Hypokalemia (2.9) - Giving IV K+ 40meq in the AM and shall start pt on 20meq PO BID. Hyperlipidemia: continue home meds Lipid panel resulted and is excellent. Hypoalbuminemia: will supplement with Boost, and PRN Marinol if pt has a poor appetite. COPD: continue home meds (albuterol & advair, montekulast, Incruse Ellipta) RLS: continue gabapentin Anxiety: continue home ativan dosing IBS: c/w Linzess Tobacco abuse: 1/2ppd, 40+ pack year history, declines need for nicotine patch. FEN: No fluids, e- as above, AHA Diet. Dispo: Tele, lives w boyfriend, has good support at home. DVT Proph: SCDS FULL CODE - does not want to be intubated. Resident Involvement: Resident Care Provided Care Provided: Adult Hospital Medicine Reviewed: Pt Seen/Exam by Me History leg swelling getting much better. Constitutional: denies: fever Respiratory: negative: short of breath Cardiovascular: denies chest pain General Appearance: no apparent distress Respiratory: lungs clear, no respiratory distress Cardiovascular: regular rate, rhythm, other (bilateral leg edema) Neurologic/Psychiatric: alert, oriented x 3 Skin Characteristics: warm/dry Assessment/Plan Resident Physician Supervision Note: I independently interviewed and examined the patient and verified the velasquez history and physical, reviewed labs and image studies, discussed the case with the resident Dr. Henderson and agree with the findings and care plan.
[2017-11-27] MEDS ORDERED: POTASSIUM CHLR 10 MEQ / WTR 100 ML IV SCH (08:00)
[2017-11-27] MEDS: FUROSEMIDE INJ 20 MG in SYRINGE 0 ML IV SCH (08:24)
[2017-11-27] MEDS: CYANOCOBALAMIN 500 MCG TAB (VIT B-12) PO SCH (08:25)
[2017-11-27] MEDS: METOPROLOL SUCC 25MG EXT REL TAB PO SCH (08:25)
[2017-11-27] MEDS: CALCIUM 600MG + VIT D 400 IU TAB PO SCH (08:25)
[2017-11-27] MEDS: OXYCODONE HCL IR 5 MG TAB (IMMEDIATE RELEASE) PO PRN ×3 (08:27→17:57)
[2017-11-27] MEDS: CHOLECALCIFEROL 1000 INTER.UNIT TAB PO SCH (08:28)
[2017-11-27] MEDS: MONTELUKAST SOD 10 MG TAB PO SCH (08:28)
[2017-11-27] MEDS: GABAPENTIN 300 MG CAP PO SCH ×2 (08:28→20:44)
[2017-11-27] MEDS: PANTOprazole SOD 40 MG TAB PO SCH ×2 (08:29→20:44)
[2017-11-27] MEDS: FLUTICASONE/SALMETEROL (ADVAIR) 500/50 INH 14 PUFF INH SCH ×2 (08:29→20:40)
--- NOTE | 2017-11-27 08:32 | Clinical Documentation Query ---
CLINICAL DOCUMENTATION QUERY 57 yo female admitted with new onset CHF. Patient's BMI is 18.5 and patient is described as "thin". In your clinical opinion is this patient being managed for: ( ) Cachexia ( x ) Not Agree ( ) Other explanation of clinical findings (No explanation is considered a No Response) ( ) Unable to determine ( ) Need to Discuss (Phone CDS or qliq) (No discussion is considered a No Response) The medical record reflects the following clinical findings, treatment, and risk factors. Clinical Indicators: As above Treatment: Diet, I&O Risk Factors: Smoker, COPD Please clarify and document your clinical opinion in the progress notes and discharge summary. Terms such as "probable", "suspected", "likely", "questionable", "possible", or "still to be ruled out" are acceptable. IF IN AGREEMENT, YOU MUST DOCUMENT ABOVE DIAGNOSTIC STATEMENT IN DAILY PROGRESS NOTES AND DISCHARGE SUMMARY. This document is not part of the patient's record. Thank You, Lyudmila Kennedy RN, MSN [phone]
[2017-11-27] MEDS ORDERED: POTASSIUM CHLORIDE 20 MEQ TABCR PO SCH (09:00)
[2017-11-27] MEDS ORDERED: POTASSIUM CHLORIDE 10 MEQ TABCR PO SCH (09:00)
[2017-11-27] MEDS: POTASSIUM CHLORIDE 20 MEQ TABCR PO SCH ×2 (13:49→20:45)
--- NOTE | 2017-11-27 14:01 | CARDIOLOGY CONSULTATION REPORT ---
DATE OF CONSULTATION: 11/27/2017 CARDIOLOGY CONSULTATION HISTORY OF PRESENT ILLNESS: Ms. Morrison is a very pleasant 57-year-old white female with a history of valvular heart disease status post porcine mitral valve replacement and aortic valve repair in 2005, minimal CAD on cardiac catheterization in 2005, intermittent cardiomyopathy, moderate AI, COPD, hypertension, GERD, coronary artery plaques, and a history of atypical chest pain who presented acutely in the [facility] on 11/26/2017 complaining of bilateral feet and ankle swelling over the preceding 2-3 weeks. Patient cannot think of any triggers which may have contributed to this. She does eat occasionally at restaurants but has really minimized her dietary salt intake. She denies the use of any NSAIDs. She did start Fosamax prior to the onset of these symptoms, but there is a very low incidence of peripheral edema with Fosamax (less than 1% of people who take it develop peripheral edema). She did stop taking Fosamax, but the swelling persisted. Patient states that she gained approximately 6 pounds recently after having some weight loss. Patient otherwise complains of some intermittent chest discomfort which seems to come and go at random, is not exertional, and is without associated symptoms. Patient denies any shortness of breath, unusual dyspnea on exertion, orthopnea, or PND. She still has to go up and down the steps at least 8 to 10 times a day to take her dog outside and she has not had any shortness of breath or difficulty with this activity. Patient offers no other complaints. Currently she is fairly hypokalemic, but her potassium is being replaced. MEDICATIONS: 1. Lasix 20 mg IV daily. 2. KCl 20 mEq b.i.d. (to be increased). 3. Vitamin D 1000 IUs daily. 4. Neurontin 600 mg q.a.m. and 900 mg q.p.m. 5. Toprol-XL 25 mg daily. 6. Singulair 10 mg daily. 7. Calcium with vitamin D 1 tablet daily. 8. Vitamin B12 1000 mcg daily. 9. Plavix 75 mg daily. 10. Advair Diskus 500/50 1 puff b.i.d. 11. Lorazepam 0.5 mg p.o. q.h.s. p.r.n. for sleep. 12. Protonix 40 mg b.i.d. 13. OxyIR 5 mg p.o. q.i.d. p.r.n. for pain. 14. Nicoderm CQ 14 mg patch as needed (has not started this). 15. Tylenol 650 mg p.o. q.4 hours p.r.n. for pain or fever. 16. Milk of magnesia p.r.n. 17. Zofran 4 mg IV q.6 hours p.r.n. for nausea or vomiting. 18. Albuterol 2 puffs p.o. q. 6 hours p.r.n. 19. Albuterol nebulizers p.r.n. 20. Sublingual nitroglycerin as needed. ALLERGIES: ASPIRIN AND HYDROCHLOROTHIAZIDE. PAST MEDICAL HISTORY: 1. Valvular Heart Disease s/p Porcine MVR and Aortic Valve Repair in 2005. 2. Minimal CAD on cardiac catheterization at that time. 3. Intermittent Cardiomyopathy (most recent LVEF appears to be 40%-45% of global hypokinesis). 4. Moderate Aortic Insufficiency. 5. COPD. 6. Hypertension. 7. History of atypical chest pain. 8. Carotid artery plaque. 9. Cervical radiculopathy. 10. History of noncardiac chest pain. 11. Chronic pain. 12. Chronic reflux esophagitis. 13. Depression. 14. History of fatigue. 15. History of gastritis. 16. Dyslipidemia. 17. Nicotine dependence. 18. Nontoxic mobile nodular goiter. 19. History of orthostatic hypotension. 20. Osteoporosis. 21. History of palpitations. 22. Raynaud's phenomenon. 23. History of vitamin B12 and vitamin D deficiencies. SOCIAL HISTORY: Patient previously smoked up to 3 packs per day. States that she recently quit smoking. She does not use alcohol or illicit drugs. Patient is single. FAMILY HISTORY: Significant for COPD in her mother. Father had an IA and at the age of 55. Five brothers with heart disease. PHYSICAL EXAMINATION: VITAL SIGNS: Weight is 42.9 kg (down 2.1 kg since admission). I and O's minus approximately 1 liter fluid balance. Temperature is 36.9 degrees Celsius, pulse 92 and regular, respiratory rate is 18 nonlabored. Blood pressure is 115/67, SpO2 is 100% on room air. GENERAL: Patient is in no acute distress. HEENT: Head is atraumatic, normocephalic. EOMs intact. Sclerae anicteric. Face is symmetric. No perioral cyanosis. Mucous membranes moist. NECK: Without obvious JVD. Jugular venous pressure is just above the clavicle, sitting at a 60-degree angle. CHEST AND LUNGS: Markedly diminished breath sounds in bilateral bases, otherwise distant breath sounds. CARDIOVASCULAR: S1 and S2 are regular with a grade I/ decrescendo diastolic murmur and a grade II/ basal systolic ejection murmur. Aortic valve closure sound is audible at both the apex and the base. PMI is nondisplaced. No lifts, heaves, or thrills. No abdominal aortic or renal bruits. ABDOMEN: Bowel sounds present. No masses, organomegaly or tenderness. EXTREMITIES: Without cyanosis. +1 bipedal edema is present. +1 ankle edema is present. Echocardiogram is pending. LABORATORIES: White blood cell count is 5.89, hemoglobin 14.5 g/dL, hematocrit 45.6%, platelet count is 295,000. Sodium is 139 mmol/liter, potassium 2.9 mmol/liter, BUN is 9 mg/dL, creatinine is 0.81 mg/dL. Troponin I is less than 0.015, less than 0.015, and 0.016 ng/mL. Pro-BNP elevated 13,650 picograms/mL. Albumin level is somewhat low at 2.6 g/dL. TSH normal at 3.100. Lipase level 86 units/L. ASSESSMENT: 1. Bipedal Edema, Small Pleural Effusions bilaterally, Elevated Pro-BNP -- consistent with some degree of CHF. 2. Marked Hypoalbuminemia. 3. Hypokalemia. 4. Atypical chest pain with negative cardiac enzymes. 5. Status post porcine mitral valve replacement in 2005. 6. History of aortic valve repair now with moderate aortic insufficiency. 7. Diagnoses mentioned above. PLAN: 1. Patient does appear to be mildly volume overloaded. 2. Continue IV Lasix for now. 3. Continue Toprol-XL 25 mg daily. 4. Replace potassium. At the current time, she is having lot of discomfort at her IV site where the potassium is running in. She will be converted to p.o. potassium chloride 20 mEq t.i.d. and we will continue to closely monitor her laboratories and electrolytes. 5. Continue to closely monitor daily weights, I&Os. 6. Continue long-term Plavix 75 mg daily. 7. Continue inhalers and nebulizers as directed. 8. We will continue to closely follow. 9. Assess reasons for hypoalbuminemia - probably nutritional. MTDD
[2017-11-27] MEDS ORDERED: DRONABINOL 2.5 MG CAP PO PRN (16:30)
[2017-11-27] MEDS: CLOPIDOGREL BISULFATE 75 MG TAB PO SCH (20:44)
[2017-11-27] MEDS: LORAZEPAM 0.5 MG TAB PO SCH (20:44)
[2017-11-28] MEDS: OXYCODONE HCL IR 5 MG TAB (IMMEDIATE RELEASE) PO PRN ×3 (00:35→12:36)
[2017-11-28 03:11] VITALS: BP 136/73; PULSE 79; TEMP 36.9; O2SAT 95
[2017-11-28 06:45] LABS: CALCIUM 6.7 mg/dl (8.5-10.1); CREATININE 0.84 mg/dl (0.60-1.20); POTASSIUM 3.7 mmol/L (3.5-5.1)
[2017-11-28 07:41] VITALS: BP 144/73; PULSE 75; TEMP 36.6; O2SAT 96
[2017-11-28 08:00] VITALS: O2SAT 96
--- NOTE | 2017-11-28 08:23 | DIAGNOSTIC IMAGING REPORT ---
SINGLE VIEW CHEST CLINICAL HISTORY: Hypoxia. FINDINGS: An AP, portable, upright chest radiograph is compared to study dated 11/26/2017 and correlated with chest CT dated 04/14/2017. The examination is degraded by portable technique and patient rotation. The patient is status post midline sternotomy. The heart is enlarged and there is atherosclerotic calcification of the thoracic aorta. Pulmonary vascular congestion persists. There are small pleural effusions with bibasilar consolidation. No pneumothorax is seen. The skeletal structures are osteopenic. The bony thorax is grossly intact. IMPRESSION: 1. Cardiomegaly with evidence of congestive failure. 2. There are small pleural effusions with bibasilar consolidation. This likely represents atelectasis. Correlate clinically for evidence of superimposed pneumonia. Electronically signed by: Mack Perez M.D. 11/28/2017 8:21 AM Dictated Date/Time: 11/28/2017 8:20 AM
[2017-11-28] MEDS: BOOST BREEZE NUTRITION DRINK 1 BOX PO SCH ×2 (08:31→11:00)
[2017-11-28] MEDS: CALCIUM 600MG + VIT D 400 IU TAB PO SCH (08:32)
[2017-11-28] MEDS: PANTOprazole SOD 40 MG TAB PO SCH (08:32)
[2017-11-28] MEDS: MONTELUKAST SOD 10 MG TAB PO SCH (08:32)
[2017-11-28] MEDS: GABAPENTIN 300 MG CAP PO SCH (08:32)
[2017-11-28] MEDS: METOPROLOL SUCC 25MG EXT REL TAB PO SCH (08:32)
[2017-11-28] MEDS: CYANOCOBALAMIN 500 MCG TAB (VIT B-12) PO SCH (08:33)
[2017-11-28] MEDS: CHOLECALCIFEROL 1000 INTER.UNIT TAB PO SCH (08:33)
[2017-11-28] MEDS: FUROSEMIDE INJ 20 MG in SYRINGE 0 ML IV SCH (08:33)
[2017-11-28] MEDS: POTASSIUM CHLORIDE 20 MEQ TABCR PO SCH ×2 (08:37→15:18)
[2017-11-28] MEDS: FLUTICASONE/SALMETEROL (ADVAIR) 500/50 INH 14 PUFF INH SCH (08:39)
[2017-11-28 10:36] VITALS: BP 144/77; PULSE 64; TEMP 36.9; O2SAT 95
[2017-11-28] MEDS ORDERED: FURO-85 PO (14:25)
--- NOTE | 2017-11-28 14:34 | Discharge Instructions ---
Discharge Instructions Date of Service Nov 28, 2017. Admission Reason for Admission: EDEMA Discharge Discharge Diagnosis / Problem: Cardiomyopathy, Pulmonary Hypertension Discharge Goals Goal(s): Decrease discomfort, Improve function, Increase independence, Improve disease control, Improve nutritional status, Learn about illness Activity Recommendations Activity Limitations: per Instructions/Follow-up section . Instructions / Follow-Up Instructions / Follow-Up You came to the hospital with the complaint of lower extremity swelling. It was found that the lower extremity swelling was most likely a consequence of a disease called pulmonary hypertension. Pulmonary hypertension can result when smoking damages to the lungs to such an extent where blood builds up on the right side of your heart and as a consequence fluid is retained in the legs and feet. The ultimate treatment for this is to quit smoking. Medications can help with the symptoms. While in the hospital you received a medication called Lasix(Furosemide). Lasix is a "water" pill that decreases the fluid in your body - this will improve the swelling in the lower extremities. We are discharging you on 20mg of Lasix daily - this prescription has been sent to your pharmacy in [place]. While taking Lasix it's important to have a high potassium diet. You may also benefit from taking Potassium supplements. Information on Lasix and a High Potassium diet has been printed for you on discharge. Please read this information carefully. We also noticed that your oxygen level is low. We found that you require supplemental oxygen when walking. This is likely to be a jail requirement that will only worsen with continued smoking. Arrangements have been made for you to receive an oxygen canister at home. DO NOT SMOKE CIGARETTES WHILE BREATHING SUPPLEMENTAL OXYGEN. Information on supplemental oxygen will be printed for you, please read this information carefully. Please follow up with your Primary Care Provider and Wire Taper at the appointments we will arrange for you. We also recommend you check your weight daily. Please see your doctor if you notice you weight rapidly increasing by 2-3lbs per day without good reason. We also recommend you quit smoking. A document with helpful tips on quitting smoking will be printed for you. Please read this information carefully. Current Hospital Diet Patient's current hospital diet: Low Sodium Diet (2gm Na) Discharge Diet Recommended Diet: Regular Diet Pending Studies Studies pending at discharge: no Laboratory Results Lipid Panel Test 11/27/17 05:31 Range/Units Triglycerides Level 95 0-150 mg/dl Cholesterol Level 76 0-200 mg/dl HDL Cholesterol 27 mg/dl Cholesterol/HDL Ratio 2.8 LDL Cholesterol, Calculated 30 mg/dl Medical Emergencies . Who to Call and When: Medical Emergencies: If at any time you feel your situation is an emergency, please call 911 immediately. . Non-Emergent Contact Non-Emergency issues call your: Primary Care Provider, Wire Taper . . "Provider Documentation" section prepared by James Donovan. . Resident Involvement: Resident Care Provided Care Provided: Adult Hospital Medicine
[2017-11-28 14:37] VITALS: BP 111/65; PULSE 88; TEMP 36.9; O2SAT 90
[2017-11-28 14:47] VITALS: BP 144/77; PULSE 64; TEMP 36.9; O2SAT 95
--- NOTE | 2017-11-28 14:59 | Discharge Summary ---
Discharge Summary Date of Service Nov 28, 2017. Discharge Summary Admission Date: Nov 26, 2017 at 12:26 Discharge Date: Nov 28, 2017 Discharge Disposition: Home Principal Diagnosis: Bilateral Edema 2/2 Pulmonary HTN (new diagnosis) Immunizations: Have You Had Influenza Vaccine: Yes Influenza Vaccine Date: May 17, 2007 History of Tetanus Vaccine?: Yes Tetanus Immunization Date: Feb 12, 2006 History of Pneumococcal: Yes Pneumococcal Date: May 18, 2007 History of Hepatitis B Vaccine: No Procedures: ECHOCARDIOGRAM Normal LV size and wall thickness LVEF 40-45%. Abnormal septal motion consistent with post operative state. 3. Normal RV size with border function. 4. Bioprosthetic mitral valve with elevated transvalvular gradients. 5. Moderate aortic regurgitation. 6. Severe pulmonary hypertension. Estimated PASP 60-65mmhg. Normal CVP. 7. Compared with prior study on 01/27/2015: Mitral valve transvalvular gradients are elevated. Pulmonary Hypertension is now. SINGLE VIEW CHEST IMPRESSION: 1. Cardiomegaly with evidence of congestive failure. 2. There are small pleural effusions with bibasilar consolidation. This likely represents atelectasis. Correlate clinically for evidence of superimposed pneumonia. VENOUS DOPPLER LWR EXT BILA HISTORY: Pain. Edema. swelling COMPARISON STUDY: None. FINDINGS: There is normal compressibility, flow, and augmentation within the bilateral lower extremity deep venous systems. IMPRESSION: No DVT within the right or left lower extremity. 2 Step Exercise May need 2LNC on exertion. Consultations: CARDIOLOGY CONSULTATION (DRAFT) ASSESSMENT: 1. Bipedal Edema, Small Pleural Effusions bilaterally, Elevated Pro-BNP -- consistent with some degree of CHF. 2. Marked Hypoalbuminemia. 3. Hypokalemia. 4. Atypical chest pain with negative cardiac enzymes. 5. Status post porcine mitral valve replacement in 2005. 6. History of aortic valve repair now with moderate aortic insufficiency. 7. Diagnoses mentioned above. PLAN: 1. Patient does appear to be mildly volume overloaded. 2. Continue IV Lasix for now. 3. Continue Toprol-XL 25 mg daily. 4. Replace potassium. At the current time, she is having lot of discomfort at her IV site where the potassium is running in. She will be converted to p.o. potassium chloride 20 mEq t.i.d. and we will continue to closely monitor her laboratories and electrolytes. 5. Continue to closely monitor daily weights, I&Os. 6. Continue long-term Plavix 75 mg daily. 7. Continue inhalers and nebulizers as directed. 8. We will continue to closely follow. 9. Assess reasons for hypoalbuminemia - probably nutritional. Medication Reconciliation New Medications: Furosemide (Lasix) 20 Mg Tab 1 TAB PO DAILY for 60 Days, #60 TAB 1 Refill Continued Medications: Albuterol Hfa (Ventolin Hfa) 200 Puffs/09489 Mcg Aers 2-4 PUFFS INH Q6H PRN for SOB/Wheezing, #1 INHALER Albuterol Sulf (Proventil 0.083% 2.5MG/3ML) 2.5 Mg/3 Ml Nebu 2.5 MG INH Q4 PRN for SOB/Wheezing, EA Calcium Carbonate-Vitamin D (Calcium 600 + D) 1 Tab Tab 1 TAB PO DAILY Cholecalciferol (Vitamin D 1000 Unit) 1,000 Unit Cap 1 TAB PO DAILY, CAP Clopidogrel Bisulfate (Clopidogrel) 75 Mg Tab 75 MG PO HS Cyanocobalamin (Vitamin B12) 1,000 Mcg Tab 1 TAB PO QAM Fluticasone Prop/Salmeterol (Advair Diskus 500/50 60 Dose) 1 Ea Aerp 1 PUFF INH BID, INHALER Gabapentin (Neurontin) 300 Mg Cap 600 MG PO QAM, CAP Gabapentin (Neurontin) 300 Mg Cap 900 MG PO QPM, CAP Linaclotide (Linzess) 145 Mcg Cap 145 MCG PO QAM Lorazepam (Lorazepam) 0.5 Mg Tab 0.5 MG PO HS Metoprolol Succinate (Metoprolol Succinate ER) 25 Mg Tabcr 25 MG PO QAM Montelukast Sod (Montelukast Sodium) 10 Mg Tab 10 MG PO QAM Nitroglycerin (Nitrostat) 0.4 Mg Tab 0.4 MG UT UD PRN for Chest Pain Oxycodone Hcl (Oxycodone Hcl) 5 Mg Cap 1-2 CAP PO QID PRN for Pain, CAP Pantoprazole (Pantoprazole Sodium) 40 Mg Tab 40 MG PO BID Umeclidinium [place] (Incruse Ellipta) 62.5 Mcg/Inh Inh 1 PUFF PO QAM Discharge Exam Pt was seen and examined at bedside. No acute overnight events. Feel better. No events on telemetry. Edema has improved. Still has an O2 requirement.. Constitutional: No fever, No chills, No sweats ENT: No hearing loss Respiratory: No cough, No sputum, No wheezing, No shortness of breath Cardiovascular: + edema, No chest pain, No orthopnea Abdomen: No pain, No nausea, No vomiting, No diarrhea, No constipation Female : No dysuria Physical Exam General Appearance: WD/WN, no apparent distress Eyes: normal inspection, PERRL ENT: normal ENT inspection, hearing grossly normal Neck: supple, no adenopathy Respiratory/Chest: chest non-tender, lungs clear, normal breath sounds, no respiratory distress, no accessory muscle use Cardiovascular: regular rate, rhythm, no gallop, no JVD, no murmur, + pertinent finding (there is a well healed sternal scar from a mitral valve repair) Abdomen: normal bowel sounds, non tender, soft, no organomegaly, no pulsatile mass Extremities: normal range of motion, non-tender, normal inspection, no calf tenderness, + swelling (LE edema in the feet has resolved ) Neurologic/Psychiatric: smearer II-XII nml as tested, no motor/sensory deficits, alert, normal mood/affect, oriented x 3 Skin: + pertinent finding (pt is tanned - this is chronic) Hospital Course 57F who was admitted on 11/26 with bilateral lower extremity edema. Echocardiogram found increased right ventricular pressures consistent with pulmonary hypertension. The etiology is likely her long standing smoking history. She was treated with IV Lasix where she diureses 1.2L. She was also found to have a new oxygen requirement with activity - this has likely been developing insidiously. She does appear to be back at her baseline. We did set up home oxygen for the patient. Cardiology was consulted and is on board with the plan. PCP and Cardiology follow up will be arranged for the patient. Bilateral LE edema 2/2 cardiomyopathy, suspected class II CHF in setting of Mitral Valve Repair. ECHO as above, showed pulm HTN. BNP on admission is 13,000 Trops peaked at 0.016. EKG on admission with T wave inversions anteriorly, not seen prior, These persist on today's EKG. US negative for DVT. TSH WNL. Continue cardiac meds including Toprol XL and Plavix. Diuresed well. Pt was given 40mg IV Lasix in the ER, and 20mg IV Lasix today. Will be discharged on 20mg PO Lasix. Target weight is 92lbs, concern for water retention if pt is significantly over that limit without better explanation. New diagnosis of Chronic respiratory failure - likely sec to copd and leading severe Pul HTN Severe Pul HTN - oxygen - discussed stopping smoking. COPD - moderate to severe - to quit smoking. - continue home meds (albuterol & advair, montekulast, Incruse Ellipta) Hypokalemia (2.9) - Giving IV K+ 40meq in the AM and shall start pt on 20meq PO BID. Advised to start a high K+ diet on DC or purchase potassium supplements. Recommend repeat BMP in 4-6 weeks. Hyperlipidemia: Lipid panel resulted and is excellent. Hypoalbuminemia: will supplement with Boost, consider Marinol if pt has a poor appetite as outpatient. RLS: continue gabapentin Anxiety: continue home ativan dosing IBS: c/w Linzess Tobacco abuse: 1/2ppd, 40+ pack year history, cessation information given on discharge. Consider medical therapy. Total Time Spent: Greater than 30 minutes (45) This includes examination of the patient, discharge planning, medication reconciliation, and communication with other providers. Discharge Instructions Please refer to the electronic Patient Visit Report (Discharge Instructions) for additional information. Additional Copies To Barrington Joshi M.D.; Krystian Valles,P.A. Resident Involvement: Resident Care Provided Care Provided: Adult [facility] Medicine Reviewed: Pt Seen/Exam by Me History leg swelling much improved has been needing oxygen since here. was not on oxygen at home. Constitutional: denies: fever Cardiovascular: denies chest pain Gastrointestinal/Abdominal: negative: abdominal pain General Appearance: no apparent distress Respiratory: no respiratory distress, decreased breath sounds Cardiovascular: regular rate, rhythm Neurologic/Psychiatric: alert, oriented x 3 Skin Characteristics: warm/dry Assessment/Plan Resident Physician Supervision Note: I independently interviewed and examined the patient and verified the velasquez history and physical, reviewed labs and image studies, discussed the case with the resident Dr. Henderson and agree with the findings and care plan. Time spent in discharge 45 min
--- NOTE | 2017-11-28 15:20 | ECHOCARDIOGRAM REPORT ---
*NOTICE TO RECEIVING [employer] This information is strictly Confidential and protected under [place] law. [place] law prohibits you from making any further disclosure of this information unless further disclosure is expressly permitted by the written consent of the person to whom it pertains or is authorized by law. A general authorization for the release of medical or other information is not sufficient for this purpose. Hospital accepts no responsibility if the information is made available to any other person, INCLUDING THE PATIENT. Interpretation Summary * Name: JERARDO MONTES Study Date: 11/26/2017 03:12 PM BP: 151/80 mmHg * Patient [facility] HR: 83 * : 1960 (M/d/yyyy) Gender: Female Height: 60 in * Age: 57 yrs Ethnicity: CA Weight: 99 lb * Ordering Physician: Cyn Castellon * Referring Physician: Self, Referred * Performed By: Anders Pack RCS * * Reason For Study: CHF * BSA: 1.4 m2 * -- Conclusions -- * 1. Normal LV size and wall thickness. * 2. LVEF 40-45%. Abnormal septal motion consistent with post-operative state. * 3. Normal RV size with borderline function. * 4. Bioprosthetic mitral valve with elevated transvalvular gradients. * 5. Moderate aortic regurgitation. * 6. Severe pulmonary hypertension. Est PASP 60-65 mmhg. Normal CVP. * 7. Compared with prior study on 01/27/2015: Mitral valve transvalvular gradients are elevated. Pulmonary hypertension is new. Procedure Details * A complete two-dimensional transthoracic echocardiogram was performed (2D, M-mode, Doppler and color flow Doppler). Left Ventricle * The left ventricle is grossly normal size. * There is normal left ventricular wall thickness. * Ejection Fraction = 40-45%. * Septal motion is consistent with post-operative state. Right Ventricle * The right ventricle is grossly normal size. * The right ventricular systolic function is borderline reduced. Atria * The left atrium is borderline dilated. * Right atrial size is normal. * No ASD detected; PFO is not assessed. Mitral Valve * There is trace mitral regurgitation. * There is a bioprosthetic mitral valve. Tricuspid Valve * There is moderate tricuspid regurgitation. * Right ventricular systolic pressure is elevated at >60mmHg. Aortic Valve * The aortic valve opens well. * No hemodynamically significant valvular aortic stenosis. * Moderate aortic regurgitation. Pulmonic Valve * The pulmonary valve is inadequately visualized, but the Doppler data is adequate for interpretation. * Pulmonic stenosis is absent. * Trace pulmonic valvular regurgitation. Great Vessels * The aortic root and proximal ascending aorta are normal sized. Pericardium/Pleural * There is no pericardial effusion. * Small left pleural effusion. Great Vessels * Normal inferior vena cava size and collapsability with sniff indicates a normal right atrial pressure of 3 mmHg MMode 2D Measurements and Calculations IVSd 1.0 cm IVSs 1.2 cm LVIDd 3.7 cm LVIDs 2.9 cm LVPWd 1.0 cm LVPWs 1.2 cm IVS/LVPW 0.99 FS 22.6 % EDV(Teich) 58.2 ml ESV(Teich) 31.3 ml EF(Teich) 46.3 % EDV(cubed) 50.7 ml ESV(cubed) 23.5 ml EF(cubed) 53.6 % % IVS thick 15.4 % % LVPW thick 12.6 % LV mass(C)d 117.1 grams LV mass(C)dI 84.6 grams/m\S\2 LV mass(C)s 98.5 grams LV mass(C)sI 71.1 grams/m\S\2 SV(Teich) 26.9 ml SI(Teich) 19.5 ml/m\S\2 SV(cubed) 27.2 ml SI(cubed) 19.7 ml/m\S\2 Ao root diam 3.0 cm Ao root area 7.3 cm\S\2 ACS 1.5 cm LA dimension 3.0 cm asc Aorta Diam 2.5 cm LA/Ao 0.98 EDV(MOD-sp4) 40.0 ml ESV(MOD-sp4) 22.0 ml EF(MOD-sp4) 45.0 % EDV(MOD-sp2) 63.0 ml ESV(MOD-sp2) 36.0 ml EF(MOD-sp2) 42.9 % SV(MOD-sp4) 18.0 ml SI(MOD-sp4) 13.0 ml/m\S\2 SV(MOD-sp2) 27.0 ml SI(MOD-sp2) 19.5 ml/m\S\2 Doppler Measurements and Calculations Ao V2 max 145.7 cm/sec Ao max PG 8.5 mmHg Ao max PG (full) 6.3 mmHg AI max hayley 480.1 cm/sec AI max PG 92.2 mmHg AI dec slope 459.7 cm/sec\S\2 AI P1/2t 305.9 msec LV V1 max PG 2.2 mmHg LV V1 max 73.8 cm/sec PA V2 max 95.9 cm/sec PA max PG 3.8 mmHg PI max hayley 182.9 cm/sec PI max PG 13.5 mmHg PI dec slope 176.4 cm/sec\S\2 PI P1/2t 303.7 msec TR max hayley 350.9 cm/sec
== END 2017-11-28 15:45 | disposition home or self-care (01) | DRG 315 ==
LOC: C.EDB 09:36 → C.2T 12:26 → ENRESERV 12:48
PROVIDERS: ADMIT Family Medicine; ATTEND Family Medicine
DX: I27.20 Pulmonary hypertension, unspecified (principal); J96.10 Chronic respiratory failure, unspecified whether with hypoxia or hypercapnia; I10 Essential (primary) hypertension; J44.9 Chronic obstructive pulmonary disease, unspecified; E78.5 Hyperlipidemia, unspecified; F41.9 Anxiety disorder, unspecified; E87.6 Hypokalemia; E88.09 Other disorders of plasma-protein metabolism, not elsewhere classified; G25.81 Restless legs syndrome; F17.200 Nicotine dependence, unspecified, uncomplicated; Z79.01 Long term (current) use of anticoagulants; Z79.899 Other long term (current) drug therapy

== ENCOUNTER → 2017-12-07 | Outpatient (CLI) | payer OTHER ==
[~2017-12-07] MED LIST changes: +FURO-85 PO; +GABA-113 PO; -GABA-1219 PO
[2017-12-07 12:42] LABS: BLOOD UREA NITROGEN 7 mg/dl (7-18); CALCIUM 8.9 mg/dl (8.5-10.1); CARBON DIOXIDE 35 mmol/L (21-32); GLUCOSE 83 mg/dl (70-99); POTASSIUM 3.8 mmol/L (3.5-5.1); SODIUM 137 mmol/L (136-145)
== END | disposition home or self-care (01) ==
LOC: C.LABBFT 09:03
PROVIDERS: ATTEND Internal Medicine
DX: I50.9 Heart failure, unspecified (principal)

== ENCOUNTER → 2017-12-19 | Outpatient (CLI) | payer OTHER | END | disposition home or self-care (01) | LOC: C.LAB 14:16 | PROVIDERS: ATTEND Internal Medicine Pulmonary Disease | DX: J44.9 Chronic obstructive pulmonary disease, unspecified (principal) ==

== ENCOUNTER 2018-12-18 11:42 | Inpatient (IN) ==
[2018-12-18] MEDS ORDERED: SODIUM CHLORIDE 0.9% 1000ML 500 ML IV ONE (12:00)
[2018-12-18 12:16] LABS: Basophils # (auto) 0.06 K/uL (0-0.2); Basophils % (auto) 0.8 %; Eosinophils # (auto) 0.14 K/uL (0-0.5); Eosinophils % (auto) 1.9 %; Hematocrit (blood only) 41.3 % (37-47); Hemoglobin 13.5 g/dL (12.0-16.0); Lymphocytes # (auto) 1.42 K/uL (1.2-3.4); Lymphocytes % (auto) 19.7 %; Mean Corpuscular Hemoglobin 28.6 pg (25-34); Mean Corpuscular Hgb Conc 32.7 g/dL (32-36); Mean Corpuscular Volume 87.5 fL (80-100); Monocytes # (auto) 0.53 K/uL (0.11-0.59); Monocytes % (auto) 7.4 %; Neutrophils # (auto) 5.06 K/uL (1.4-6.5); Neutrophils % (auto) 70.2 %; Platelet Count 207 K/uL (130-400); RDW Coefficient of Variation 13.5 % (11.5-14.5); RDW Standard Deviation 43.4 fL (36.4-46.3); Red Blood Count 4.72 M/uL (4.2-5.4); White Blood Count 7.21 K/uL (4.8-10.8)
--- NOTE | 2018-12-18 12:22 | XRay Report ---
XR chest 1V portable HISTORY: 58 years-old Female sob, weakness acute shortness of breath with weakness COMPARISON: Chest radiograph 11/28/2017 TECHNIQUE: Portable AP view of the chest FINDINGS: Cardiac silhouette is enlarged, unchanged. Prior median sternotomy. Pulmonary vascular congestion wit hout overt pulmonary edema. Postoperative changes of the right midlung. Blunting of the costophrenic angles without large pleural effusion or pneumothorax. Mild chronic interstitial coarsening. Bones ap pear grossly intact. IMPRESSION: Cardiomegaly with pulmonary vascular congestion. The above report was generated using voice recognition software. It may contain grammatical, syntax o r spelling errors. Electronically signed by: Chemo Mcdaniel M.D. 12/18/2018 12:20 PM
[2018-12-18 12:28] LABS: Partial Thromboplastin Ratio 0.9; Partial Thromboplastin Time 25.6 Seconds (21.0-31.0); Prothrombin Time 10.5 Seconds (9.0-12.0)
[2018-12-18 12:33] LABS: Alanine Aminotransferase 18 U/L (12-78); Aspartate Aminotransferase 18 U/L (15-37); BUN Creatinine Ratio 11.1 (10-20); Blood Urea Nitrogen 9 mg/dl (7-18); Calcium 8.9 mg/dl (8.5-10.1); Carbon Dioxide 34 mmol/L (21-32); Chloride 100 mmol/L (98-107); Creatinine Clr Calc Pharmacy 45.4 ml/min; Est GFR (African American) 94.9; Est GFR (Non-African American) 81.8; Glucose 80 mg/dl (70-99); Magnesium 2.1 mg/dl (1.8-2.4); Potassium 3.3 mmol/L (3.5-5.1); Sodium 139 mmol/L (136-145)
--- NOTE | 2018-12-18 12:33 | CT Scan Report ---
CT head/brain wo con CT DOSE: 537.48 mGy.cm HISTORY: Mental status change Stroke evaluation TECHNIQUE: Multiaxial CT images of the head were performed without the use of intravenous contrast. A dose lowering technique was utilized adhering to the principles of ALARA. Comparison: 07/27/2008 Findings: The paranasal sinuses and mastoid air cells are clear. The calvarium and skull base are int act. The ventricles and sulci are within normal limits. There is no mass, hematoma, midline shift, or acute infarct. Chronic small vessel change of the left occipital periventricular region. This is unc hanged. Impression: No acute intracranial abnormality. Chronic small vessel change. The above report was generated using voice recognition software. It may contain grammatical, syntax or spelling errors. Electronically signed by: James Escobedo M.D. 12/18/2018 12:32 PM
[2018-12-18 12:38] LABS: Alkaline Phosphatase 111 U/L (45-117); Bilirubin,Total 0.5 mg/dl (0.2-1); Globulin 3.9 gm/dl (2.5-4.0); Total Protein 7.9 gm/dl (6.4-8.2); Troponin I < 0.015 ng/ml (0-0.045)
[2018-12-18 13:18] LABS: Appearance Urine Clear (Clear); Bilirubin Urine Negative (Negative); Blood Urine Negative (Negative); Color Urine Yellow; Glucose Urine UA Negative (Negative); Ketones Urine Negative (Negative); Leukocyte Esterase Urine Trace (Negative); Nitrite Urine Negative (Negative); Protein Urine Negative (Negative); Urobilinogen Urine Negative (Negative)
[2018-12-18] MEDS ORDERED: OPTIRAY 320 125ml IV PRN (13:32)
[2018-12-18 13:35] LABS: RBC Urine 0-4 /hpf (0-4); WBC Urine 0-5 /hpf (0-5)
[2018-12-18 13:36] LABS: Bacteria Urine 1+ (Negative)
--- NOTE | 2018-12-18 14:14 | CT Scan Report ---
CT ANGIOGRAM OF THE BRAIN; CT ANGIOGRAM OF THE NECK CLINICAL HISTORY: Strokelike symptoms. COMPARISON STUDY: Unenhanced CT of the brain performed the same day 12/18/2018. MR angiogram of the b rain dated 10/19/2006. CT angiogram of the neck dated 04/19/2013. TECHNIQUE: Following the IV administration of 120 of Optiray 320, CT angiogram of the head and neck w as performed from the aortic arch to the vertex. Images are reviewed in the axial, sagittal, and maida nal planes. 3-D MIPS images are created and assessed. IV contrast was administered without complicati on. All measurements were calculated based on NASCET criteria. A dose lowering technique was utilize d adhering to the principles of ALARA. CT DOSE: 390.24 mGy.cm FINDINGS: Brain parenchyma: There is age-related involutional change noting mild subcortical and periventricula r microangiopathic disease. There is no hemorrhage, mass effect, or evidence of acute territorial isc hemia by CT criteria. There is no evidence of enhancing mass lesion on the angiogram phase images. Th e ventricles, sulci, and cisterns are prominent secondary to involutional change. Sheridan-white matter d ifferentiation is preserved. No extra-axial fluid collection is seen. Thoracic aorta: There is atherosclerotic calcification of the thoracic aorta. Visualized portions of the thoracic aorta are normal in caliber. The aortic arch demonstrates standard 3-vessel anatomy. Right carotid arterial system: The right common carotid artery is widely patent, as are the right int ernal and external carotid arteries. Left carotid arterial system: The left common carotid artery is widely patent, as are the left sports marketing internship al and external carotid arteries. Mild atherosclerotic plaque is seen in the carotid bulb. Vertebral arteries: The vertebral arteries are widely patent and codominant. Subclavian arteries: Widely patent bilaterally. Intracranial vasculature: There is atherosclerotic calcification of the cavernous carotid and vertebr al arteries. The internal carotid arteries are patent at the skull base, as are the anterior and midd le cerebral arteries bilaterally. The vertebrobasilar system and posterior cerebral arteries are wide ly patent. The vertebral arteries are codominant. There is no aneurysm, high-grade stenosis, or focal vessel cut off seen throughout the intracranial circulation. Jugular veins: Widely patent bilaterally. Dural sinuses: Patent. Lung apices: Advanced emphysematous change is seen in the upper lobes. Partially visualized upper lob e lung parenchyma appears clear. Soft tissues: The visualized pharyngeal soft tissues are normal in appearance noting angiographic pha se technique. The oropharyngeal airway appears widely patent. The left lobe of the thyroid gland is d iminutive. Low-attenuation thyroid nodules measure up to 7 mm. The salivary glands are normal in appe arance. No cervical lymphadenopathy is seen. Orbits: The bony orbits are intact. Orbital contents are normal in appearance. Skeletal structures: The skeletal structures are osteopenic. The calvarium appears intact. The cervic al spine is maintained noting mild spondylosis. No lytic or blastic lesion is seen. Midline sternotom y wires are noted. Sinuses and mastoids: The paranasal sinuses are clear. The mastoid air cells are well pneumatized. IMPRESSION: 1. There is no hemorrhage, mass effect, or evidence of acute territorial ischemia by CT criteria noti ng angiographic phase technique. 2. Unremarkable CT angiogram of the brain. 3. Unremarkable CT angiogram of the neck. 4. Emphysema. Electronically signed by: Mack Perez M.D. 12/18/2018 2:13 PM
--- NOTE | 2018-12-18 14:19 | History & Physical Report ---
Date of Service December 18, 2018 Assessment & Plan (1) Stroke-like symptoms: (2) Right sided weakness: (3) Dizziness: -Admit to telemetry for observation -Rule out stroke, TPA not administered as out of window for administration -Neurology consulted -Allow for permissive hypertension with SBP of 160-190, DBP of 90-110 for now, await neuro recs -Patient is allergic to aspirin -continue Plavix 75 p.o. daily -Continue atorvastatin -Check A1C and Lipid panel with a.m. labs -CT brain negative for acute stroke -Check MRI brain w/o contrast -Speech eval -Neuro checks Q2H (4) Hypertension: -BP well controlled, continue metoprolol succinate 25 every morning, furosemide 20 mg every morning as needed (5) S/P MVR (mitral valve replacement): -Status post bioprosthetic mitral valve/aortic valve repair in 2005, with moderate aortic regurg and variable left ventricular systolic function since then. (6) CAD (coronary artery disease): -Follows with Dr. De La Rosa as an outpatient -Continue metoprolol succinate, Lasix, Plavix, atorvastatin (7) Emphysema/COPD: -Follows with Dr. bailey as an outpatient -Stable -No respiratory complaints at this time (8) Tobacco dependence: -Has been ongoing for a long time, multiple attempts to quit smoking, currently smokes 5 to 6 cigarettes/day -Cessation encouraged discussion was held regarding attempts to cut cigarette use in half by May 01 as a goal. -Will order nicotine patch (9) Opioid dependence: -Holding oxycodone and lorazepam in the setting of dizziness and strokelike symptoms -Can reorder for the patient if MRI is negative and symptoms improve -Use for chronic back pain (10) Osteoporosis: -Continue vitamin D supplementation (11) DVT prophylaxis: - teds Disposition: From home, lives with boyfriend, likely to be in the hospital x 1 year. History of Present Illness Primary Care Provider: Barrington Joshi MD This is a 58-year-old female with past medical history of chronic tobacco abuse, smokes 1/2 ppd x over 25 years, HTN, history of CVA, COPD and emphysema, pulmonary htn, who presents with acute onset of dizziness and difficulty walking which began on Monday. She reports being up walking and feeling like her right leg required being dragged for her to get home. This intermittently has improved. She reports having weakness in the R arm as well, and that this has been intermittently present over the past 3 days. She has had difficulty with picking up things with the right hand. She refused to come to the hospital until today when her boyfriend, who is present at bedside, convinced her to do so today. She denies any headache, slurring of speech, difficulty speaking, difficulty swallowing, changes in vision, numbness or tingling. She has been taking all her other medications as prescribed. Not a TPA candidate due to being out of the window for administration. CT of the head and neck was negative. Checking MRI now. Allergies Allergy/AdvReac Type Severity Reaction Status Date / Time aspirin Allergy Mild HIVES Verified 12/18/18 12:45 hydrochlorothiazide Allergy Unknown SICK IN Unverified 12/18/18 12:45 STOMACH AND RASH Home Medications Home Medications Medication Instructions Recorded Confirmed Type albuterol sulfate 1 puff INHALATION Q6H PRN 11/09/18 12/18/18 History albuterol sulfate 2.5 mg INHALATION QID PRN 11/09/18 12/18/18 History atorvastatin 40 mg PO QPM 11/09/18 12/18/18 History cholecalciferol (vitamin D3) 2,000 unit PO QAM 11/09/18 12/18/18 History [Vitamin D3] cyanocobalamin (vitamin B-12) 50 mcg PO DAILY 11/09/18 12/18/18 History [Vitamin B-12] fluticasone propion-salmeterol 1 inh INHALATION BID 11/09/18 12/18/18 History [Advair Diskus] furosemide 20 mg PO QAM PRN 11/09/18 12/18/18 History gabapentin 300 mg PO UD 11/09/18 12/18/18 History ipratropium bromide 1.25 ml INHALATION Q6H PRN 11/09/18 12/18/18 History linaclotide [Linzess] 145 mcg PO QAM 11/09/18 12/18/18 History metoprolol succinate 25 mg PO QAM 11/09/18 12/18/18 History montelukast 10 mg PO QAM 11/09/18 12/18/18 History nicotine (polacrilex) [Nicorette] 4 mg BUCCAL UD 11/09/18 12/18/18 History nitroglycerin 0.4 mg SUBLINGUAL UD PRN 11/09/18 12/18/18 History pantoprazole 40 mg PO BID 11/09/18 12/18/18 History tiotropium bromide [Spiriva 2 puff INHALATION DAILY 11/09/18 12/18/18 History Respimat] lorazepam 0.5 mg tablet 0.5 mg PO HS #30 tab 12/11/18 12/18/18 Rx clopidogrel 75 mg PO DAILY 12/18/18 12/18/18 History ibandronate 150 mg PO MONTHLY 12/18/18 12/18/18 History oxycodone 5 mg PO UD PRN 12/18/18 12/18/18 History Past Med/Surg History Medical History Osteoporosis Opioid dependence CAD (coronary artery disease) Tobacco dependence Emphysema/COPD Heart disease (Chronic) Hypertension (Chronic) Anxiety COPD (chronic obstructive pulmonary disease) Depression Fibromyalgia GERD (gastroesophageal reflux disease) Hyperlipidemia Hypertension Irregular heartbeat On home oxygen therapy 2 LPM @ HS AND PRN DAILY Osteoporosis Peripheral neuropathy Recent unintentional weight loss over several months Transient ischemic attack (TIA) 2005 Surgical History H/O: hysterectomy (Resolved) S/P MVR (mitral valve replacement) (Resolved) History of bronchoscopy History of colonoscopy History of esophagogastroduodenoscopy (EGD) History of heart valve replacement 2005 - FOLLOWS W/ DR. DE LA ROSA History of lung biopsy History of tooth extraction History of total abdominal hysterectomy and bilateral salpingo-oophorectomy Family History Mother Slow to wake up after anesthesia Sister Family history of diabetes mellitus Social History Preferred Language: Yakut Communication Ability: Effective Shipping Agent Required: No Beliefs That Will Affect Care: None Current Living Situation: Significant Other Feels Safe at Home: Yes Smoking Status: Current every day smoker Tobacco Type: cigarettes ; Cigarettes Per Day: 5-7 CIG PER DAY ; Second Hand Exposure: Yes ; Hx Alcohol Use: No Hx Substance Use: No Review of Systems Review of Systems: Constitutional: No fever, sweats or chills Eyes: No diplopia, no worsening or blurred vision ENT: normal hearing, no trouble swallowing Respiratory: No cough, sputum, dyspnea at rest or on exertion Cardiovascular: No chest pain, tightness or palpitations Abdomen: No pain, nausea, vomiting, diarrhea or constipation Musculoskeletal: No joint pain, calf pain, swelling Neurologic: As per HPI. Psychiatric: No anxiety or depression Skin: No rash or itch Physical Exam Physical Exam: General: awake, alert, no apparent distress, + appears much older than stated age, underweight Head: Normocephalic, atraumatic ENT: PERRL, EOMI, no pharyngeal exudate, mucous membranes moist, +upper dentures Chest: Clear to auscultation, 2 L via NC, no adventitious breath sounds Cardiac: Regular rate and rhythm, no murmur, no JVD, normal peripheral pulses, good capillary refill Abdominal: NABS x 4 quadrants, soft, nontender to palpation, no rebound, guarding or tenderness Extremities: Normal inspection, no peripheral edema or erythema, calfs nontender to palpation Psych: Normal mood and affect Neuro: AAO x 3, + Right sided pronator drift, + diminished strength in the RUE with hand squeeze and arm flexion compared to the left, but still rated 4/5. No foot drop, no diminished strength in bilateral lower extremities. Speech is clear, no peripheral sensory deficits. Gait not assessed. Skin: + Clubbing of nails, no rash or erythema Constitutional: WD/WN, vitals as above Eyes: normal visual orellana by confrontation and + anicteric sclerae Neck: normal visual inspection and trachea midline Respiratory: normal respiratory effort, lungs clear to auscultation Cardiovascular: Rate/Rhythm: regular rate and regular rhythm Gastrointestinal (Abdomen): Inspection/Auscultation: abdomen not distended Percussion/Palpation: abdomen soft; abdomen nontender Musculoskeletal: Head/Neck/Chest: normocephalic and head atraumatic Neg for peripheral LE edema, + pedal pulses Skin: no rashes, warm and dry Neurologic: CN's II-XI intact bilaterally and awake; not confused Speech / Cognition: normal speech Very slightly decreased search director strength on the R, but still essentially 5/5 Also slightly decreased strength against resistance in LE in all planes when c/w L, but also essentially 5/5 Psychiatric: A+Ox3, euthymic affect Lymphatic: Exam as done by Cyn Castellon DO Results & Data Vital Signs (Past 12 Hours) Vital Signs Temp Pulse Resp BP Pulse Ox 12/18/18 13:20 69 22 100 12/18/18 13:15 63 14 170/67 H 100 12/18/18 13:10 63 16 100 12/18/18 13:04 66 18 159/80 H 94 12/18/18 13:03 68 17 12/18/18 12:50 62 16 100 12/18/18 12:45 68 18 185/77 H 100 12/18/18 12:40 67 16 12/18/18 12:33 74 17 100 12/18/18 12:32 75 17 168/80 H 100 12/18/18 12:20 70 13 100 12/18/18 12:15 70 14 176/83 H 12/18/18 11:46 36.7 C 88 16 179/[address] ANGIOGRAM OF THE BRAIN; CT ANGIOGRAM OF THE NECK CLINICAL HISTORY: Strokelike symptoms. COMPARISON STUDY: Unenhanced CT of the brain performed the same day 12/18/2018. MR angiogram of the brain dated 10/19/2006. CT angiogram of the neck dated 04/19/2013. TECHNIQUE: Following the IV administration of 120 of Optiray 320, CT angiogram of the head and neck was performed from the aortic arch to the vertex. Images are reviewed in the axial, sagittal, and coronal planes. 3-D MIPS images are created and assessed. IV contrast was administered without complication. All measurements were calculated based on NASCET criteria. A dose lowering technique was utilized adhering to the principles of ALARA. CT DOSE: 390.24 mGy.cm FINDINGS: Brain parenchyma: There is age-related involutional change noting mild subcortical and periventricular microangiopathic disease. There is no hemorrhag e, mass effect, or evidence of acute territorial ischemia by CT criteria. There is no evidence of enhancing mass lesion on the angiogram phase images. The ventricles, sulci, and cisterns are prominent secondary to involutional change. Sheridan-white matter differentiation is preserved. No extra-axial fluid collection is seen. Thoracic aorta: There is atherosclerotic calcification of the thoracic aorta. Visualized portions of the thoracic aorta are normal in caliber. The aortic arch demonstrates standard 3-vessel anatomy. Right carotid arterial system: The right common carotid artery is widely patent, as are the right internal and external carotid arteries. Left carotid arterial system: The left common carotid artery is widely patent, as are the left internal and external carotid arteries. Mild atherosclerotic plaque is seen in the carotid bulb. Vertebral arteries: The vertebral arteries are widely patent and codominant. Subclavian arteries: Widely patent bilaterally. Intracranial vasculature: There is atherosclerotic calcification of the cavernous carotid and vertebral arteries. The internal carotid arteries are patent at the skull base, as are the anterior and middle cerebral arteries bilaterally. The vertebrobasilar system and posterior cerebral arteries are widely patent. The vertebral arteries are codominant. There is no aneurysm, high-grade stenosis, or focal vessel cut off seen throughout the intracranial circulation. Jugular veins: Widely patent bilaterally. Dural sinuses: Patent. Lung apices: Advanced emphysematous change is seen in the upper lobes. Partially visualized upper lobe lung parenchyma appears clear. Soft tissues: The visualized pharyngeal soft tissues are normal in appearance noting angiographic phase technique. The oropharyngeal airway appears widely patent. The left lobe of the thyroid gland is diminutive. Low-attenuation thyroid nodules measure up to 7 mm. The salivary glands are normal in appearance. No cervical lymphadenopathy is seen. Orbits: The bony orbits are intact. Orbital contents are normal in appearance. Skeletal structures: The skeletal structures are osteopenic. The calvarium appears intact. The cervical spine is maintained noting mild spondylosis. No lytic or blastic lesion is seen. Midline sternotomy wires are noted. Sinuses and mastoids: The paranasal sinuses are clear. The mastoid air cells are well pneumatized. IMPRESSION: 1. There is no hemorrhage, mass effect, or evidence of acute territorial ischemia by CT criteria noting angiographic phase technique. 2. Unremarkable CT angiogram of the brain. 3. Unremarkable CT angiogram of the neck. 4. Emphysema. ECG Additional Comments: 18-DEC-2018 11:56:54 [facility]-EDSTAT ROUTINE RETRIEVAL Normal sinus rhythm Left ventricular hypertrophy with repolarization abnormality Prolonged QT Abnormal ECG When compared with ECG of 28-NOV-2017 06:34, T wave inversion no longer evident in Anterior leads 25mm/s 10mm/mV 150Hz 9.0.8 12SL 241 RYANN: 15 Referred by: REFERRED SELF Unconfirmed Vent. rate 92 BPM RI interval 168 ms QRS duration 92 ms QT/QTc 406/502 ms P-R-T axes 65 70 64 Code Status & VTE Plan Code Status Full code-discussed with boyfriend at bedside, sons would be POA in the event that medical decision needed to be made if the patient were unable to do so. -No heroic measures. Supervising Physician Co-Signing Physician Notes Pt seen and examined by me. Feels that her walking and UE strength are back to normal. Still with some dizziness, but this has improved over the last few days. Denies chest pain. Has SOB issues at baseline, but nothing new. Tolerating PO without issue, no choking or coughing with swallowing. Pt takes plavix at baseline due to heart surgery. She states she is very careful with this medication and does not miss doses. Agree with HPI/ROS as noted by PA See above for my exam in PE section Agree with plan as outlined above CVA, likely within the last few days CT WNL MRI pending CBC, PRP WNL Trop neg x1 Neuro c/s PG Care Time/CCT Total # of Minutes Spent Total Time Spent with Patient: Total time spent is greater than 50% in coordination of care (as documented) at patient's floor/unit and/or counseling patient:
[2018-12-18] MEDS ORDERED: PHARMACIST DISCHARGE MED REC CONSULT PRN (14:36)
[2018-12-18] MEDS ORDERED: NITROGLYCERIN SL 0.4 MG/TAB TAB SL PRN (14:41)
[2018-12-18] MEDS ORDERED: ALBUTEROL HFA 8 GM INHALER INH PRN (14:41)
[2018-12-18] MEDS ORDERED: ALBUTEROL 0.083% NEBU SOLN 3 ML VIAL INH PRN (14:41)
[2018-12-18] MEDS ORDERED: FUROSEMIDE 20 MG TAB PO PRN (14:41)
[2018-12-18] MEDS ORDERED: IPRATROPIUM BROMIDE NEB SOLN 0.02% 2.5 ML VIAL INH PRN (14:41)
[2018-12-18] MEDS ORDERED: OXYCODONE HCL IR 5 MG TAB (IMMEDIATE RELEASE) PO PRN (14:41)
[2018-12-18] MEDS ORDERED: IBANDRONATE 150 MG PO SCH (14:45)
[2018-12-18] MEDS ORDERED: NICOTINE POLACRILEX 2 MG GUM MT PRN (15:09)
--- NOTE | 2018-12-18 15:15 | Emergency Department Note ---
Entered by Tania Frederick acting as a scribe for History of Present Illness General Chief complaint: Dizziness Stated complaint: DIZZY, PAIN IN RIGHT ARM & LEG Time Seen by Provider: 12/18/18 11:53 Source: patient Mode of arrival: ambulatory Limitations: no limitations History of Present Illness Onset (ago): day(s) 3 Radiation: non-radiation Pain Consistency: + intermittent Maximum Pain Intensity: 0 Relieved By: + none Exacerbated By: + none Associated symptoms: + other (-urinary symptoms, -changes in speech or swallowing); no chest pain, no fever/chills and no headaches Treatments prior to arrival: none The patient is a 58 year old female who presents to the ED with complaints of intermittent weakness for the past 3 days. She states she was at [place] 3 days ago, and was "stumbling" while walking, and noticed her right leg was "dragging behind". She also noticed right arm "weakness and shaking". She denies any left sided weakness or changes. Today while walking out to her mailbox, she became dizzy, so she came to the ED. She does have a history of COPD and wears O2 as needed. Her Oxygen saturation is 94% here in the ED. She is a current smoker but states she has not had a cigarette in 3 days. She denies any recent fevers, headache, chest pain, urinary symptoms. She denies any changes in speech or swallowing. She denies any numbness or tingling in her face or extremities. Her does state her speech seemed "slurred" last night. The patient states she was told she had a mini-stroke several years ago. She does take daily Plavix for a history of valve replacement surgery. Home Medications Home Medications Medication Instructions Recorded Confirmed Type albuterol sulfate 1 puff INHALATION Q6H PRN 11/09/18 12/18/18 History albuterol sulfate 2.5 mg INHALATION QID PRN 11/09/18 12/18/18 History atorvastatin 40 mg PO QPM 11/09/18 12/18/18 History cholecalciferol (vitamin D3) 2,000 unit PO QAM 11/09/18 12/18/18 History [Vitamin D3] cyanocobalamin (vitamin B-12) 50 mcg PO DAILY 11/09/18 12/18/18 History [Vitamin B-12] fluticasone propion-salmeterol 1 inh INHALATION BID 11/09/18 12/18/18 History [Advair Diskus] furosemide 20 mg PO QAM PRN 11/09/18 12/18/18 History gabapentin 300 mg PO UD 11/09/18 12/18/18 History ipratropium bromide 1.25 ml INHALATION Q6H PRN 11/09/18 12/18/18 History linaclotide [Linzess] 145 mcg PO QAM 11/09/18 12/18/18 History metoprolol succinate 25 mg PO QAM 11/09/18 12/18/18 History montelukast 10 mg PO QAM 11/09/18 12/18/18 History nicotine (polacrilex) [Nicorette] 4 mg BUCCAL UD 11/09/18 12/18/18 History nitroglycerin 0.4 mg SUBLINGUAL UD PRN 11/09/18 12/18/18 History pantoprazole 40 mg PO BID 11/09/18 12/18/18 History tiotropium bromide [Spiriva 2 puff INHALATION DAILY 11/09/18 12/18/18 History Respimat] lorazepam 0.5 mg tablet 0.5 mg PO HS #30 tab 12/11/18 12/18/18 Rx clopidogrel 75 mg PO DAILY 12/18/18 12/18/18 History ibandronate 150 mg PO MONTHLY 12/18/18 12/18/18 History oxycodone 5 mg PO UD PRN 12/18/18 12/18/18 History Allergies Allergy/AdvReac Type Severity Reaction Status Date / Time aspirin Allergy Mild HIVES Verified 12/18/18 12:45 hydrochlorothiazide Allergy Unknown SICK IN Unverified 12/18/18 12:45 STOMACH AND RASH Past Med/Surg History Medical History Osteoporosis Opioid dependence CAD (coronary artery disease) Tobacco dependence Emphysema/COPD Heart disease (Chronic) Hypertension (Chronic) Anxiety COPD (chronic obstructive pulmonary disease) Depression Fibromyalgia GERD (gastroesophageal reflux disease) Hyperlipidemia Hypertension Irregular heartbeat On home oxygen therapy 2 LPM @ HS AND PRN DAILY Osteoporosis Peripheral neuropathy Recent unintentional weight loss over several months Transient ischemic attack (TIA) 2005 Surgical History H/O: hysterectomy (Resolved) S/P MVR (mitral valve replacement) (Resolved) History of bronchoscopy History of colonoscopy History of esophagogastroduodenoscopy (EGD) History of heart valve replacement 2005 - W/ DR. VALENCIA History of lung biopsy History of tooth extraction History of total abdominal hysterectomy and bilateral salpingo-oophorectomy Family History Mother Slow to wake up after anesthesia Sister Family history of diabetes mellitus Social History Preferred Language: French Communication Ability: Effective Fitting Room Checker Required: No Beliefs That Will Affect Care: None Current Living Situation: Significant Other Other Information That Helps Us Care for You: No Feels Safe at Home: Yes Safety Concerns: Feels Safe At This Time Smoking Status: Current some day smoker Tobacco Type: cigarettes ; Cigarettes Per Day: 5-7 CIG PER DAY ; Second Hand Exposure: Yes ; Tobacco Cessation Education Requested by Patient: No Hx Alcohol Use: No Hx Substance Use: No Review of Systems See HPI for pertinent positives & negatives. and A total of 10 systems reviewed and were otherwise negative Physical Exam Vital Signs Vital Signs - 24 hr 12/18/18 11:43 12/18/18 11:46 12/18/18 12:15 Temperature 36.7 C Temperature Source Oral Sepsis Recent Fever Within 48 Hours No Sepsis New/Unexplained Change in Mental Status No Sepsis Action Taken by Nursing No Action Required Oxygen Flow Rate - Titration 2 Pulse Rate 88 70 Pulse Rate from SpO2 Sensor 70 Respiratory Rate 16 14 Respiratory Effort / Characteristics Non-Labored Spontaneous Respiratory Depth Normal Respiratory Pattern Regular Blood Pressure 179/85 H 176/83 H Blood Pressure Mean 116 114 Blood Pressure Position Sitting Pulse Oximetry 94 100 Oxygen Delivery Method Nasal Cannula Room Air 12/18/18 12:20 12/18/18 12:32 12/18/18 12:33 Temperature Temperature Source Sepsis Recent Fever Within 48 Hours Sepsis New/Unexplained Change in Mental Status Sepsis Action Taken by Nursing Oxygen Flow Rate - Titration Pulse Rate 70 75 74 Pulse Rate from SpO2 Sensor 70 75 74 Respiratory Rate 13 17 17 Respiratory Effort / Characteristics Respiratory Depth Respiratory Pattern Blood Pressure 168/80 H Blood Pressure Mean 109 Blood Pressure Position Pulse Oximetry 100 100 100 Oxygen Delivery Method 12/18/18 12:40 12/18/18 12:45 12/18/18 12:50 Temperature Temperature Source Sepsis Recent Fever Within 48 Hours Sepsis New/Unexplained Change in Mental Status Sepsis Action Taken by Nursing Oxygen Flow Rate - Titration Pulse Rate 67 68 62 Pulse Rate from SpO2 Sensor 66 68 62 Respiratory Rate 16 18 16 Respiratory Effort / Characteristics Respiratory Depth Respiratory Pattern Blood Pressure 185/77 H Blood Pressure Mean 113 Blood Pressure Position Pulse Oximetry 100 100 100 Oxygen Delivery Method 12/18/18 13:03 12/18/18 13:04 12/18/18 13:10 Temperature Temperature Source Sepsis Recent Fever Within 48 Hours Sepsis New/Unexplained Change in Mental Status Sepsis Action Taken by Nursing Oxygen Flow Rate - Titration Pulse Rate 68 66 63 Pulse Rate from SpO2 Sensor 65 63 Respiratory Rate 17 18 16 Respiratory Effort / Characteristics Respiratory Depth Respiratory Pattern Blood Pressure 159/80 H Blood Pressure Mean 106 Blood Pressure Position Pulse Oximetry 94 100 Oxygen Delivery Method 12/18/18 13:15 12/18/18 13:20 12/18/18 13:54 Temperature Temperature Source Sepsis Recent Fever Within 48 Hours Sepsis New/Unexplained Change in Mental Status Sepsis Action Taken by Nursing Oxygen Flow Rate - Titration Pulse Rate 63 69 62 Pulse Rate from SpO2 Sensor 63 63 63 Respiratory Rate 14 22 19 Respiratory Effort / Characteristics Respiratory Depth Respiratory Pattern Blood Pressure 170/67 H 156/67 H Blood Pressure Mean 101 96 Blood Pressure Position Pulse Oximetry 100 100 100 Oxygen Delivery Method 12/18/18 14:00 12/18/18 14:01 12/18/18 14:10 Temperature Temperature Source Sepsis Recent Fever Within 48 Hours Sepsis New/Unexplained Change in Mental Status Sepsis Action Taken by Nursing Oxygen Flow Rate - Titration Pulse Rate 63 60 60 Pulse Rate from SpO2 Sensor 62 61 60 Respiratory Rate 15 20 12 Respiratory Effort / Characteristics Respiratory Depth Respiratory Pattern Blood Pressure 151/76 H Blood Pressure Mean 101 Blood Pressure Position Pulse Oximetry 99 100 100 Oxygen Delivery Method 12/18/18 14:20 12/18/18 14:30 12/18/18 14:40 Temperature Temperature Source Sepsis Recent Fever Within 48 Hours Sepsis New/Unexplained Change in Mental Status Sepsis Action Taken by Nursing Oxygen Flow Rate - Titration Pulse Rate 63 65 59 L Pulse Rate from SpO2 Sensor 63 65 59 L Respiratory Rate 10 L 15 20 Respiratory Effort / Characteristics Respiratory Depth Respiratory Pattern Blood Pressure Blood Pressure Mean Blood Pressure Position Pulse Oximetry 98 100 100 Oxygen Delivery Method GENERAL: Patient is in no acute distress. HEENT: No acute trauma, normocephalic atraumatic, mucous membranes moist, no jessica al congestion, no scleral icterus. NECK: No stridor, no adenopathy, no meningismus, trachea is midline. LUNGS: Decreased breath sounds, no wheezing or rhonchi, no respiratory distress. HEART: Without murmurs gallops or rubs, regular rate and rhythm. ABDOMEN: Soft, nontender, bowel sounds positive, no hernias, no peritonitis. EXTREMITIES: No cyanosis or edema, full range of motion of all the joints without pain or difficulty, no signs for acute trauma. NEUROLOGIC: Patient is awake and alert, subtle right facial droop, right arm and right leg drift, mild RUE and RLE cerebellar dysfunction with testing. SKIN: No rash, no jaundice, no diaphoresis. Course 1155: The patient was evaluated in room A10 and a complete history and physical were performed. 1318: I discussed the patients case with Radha Mcbride Neurology. He recommends a CTA of the head and neck and an evaluation by the hospital medicine team. 1325: I reevaluated the patient. I discussed my recommendation that she remain in the hospital for further evaluation and management and she verbalized complete understanding and agreement. 1329: I discussed the patients case with Cass Garcia PA-C [facility] Hospitalist. The patient will be further evaluated. Consultations Consultation #1: I discussed the patients case with Radha Mcbride Neurology. He recommends a CTA of the head and neck and an evaluation by the hospital medicine team. Time: 13:18 Consultation #2: I discussed the patients case with Cass Garcia PA-C [facility] Hospitalist. The patient will be further evaluated. Time: 13:29 Administered Medications Ioversol (Optiray 320 125ml) 120 ml IV ONCE PRN PRN Reason: Interaction Checking Stop: 12/22/18 13:31 Last Admin: 12/18/18 13:33 Dose: 120 ml Documented by: [id number] Miscellaneous (Order Awaiting Action) 1 ea N/A QS RILEY Stop: 01/17/19 15:59 Last Admin: 12/18/18 16:39 Dose: Not Given Documented by: [id number] Discontinued Medications Sodium Chloride (Nss 1000ml) 500 mls @ 999 mls/hr IV .Q31M ONE Stop: 12/18/18 12:30 Last Infusion: 12/18/18 13:31 Dose: 0 mls/hr Documented by: [id number] Admin: 12/18/18 12:34 Dose: 999 mls/hr Documented by: [id number] Potassium Chloride (Klor-Con M20) 40 meq PO NOW ONE Stop: 12/18/18 16:46 Last Admin: 12/18/18 16:53 Dose: 40 meq Documented by: [id number] Medical Decision Making Differential Diagnosis The differential diagnoses considered include stroke, intracranial bleeding or mass, vertigo, electrolyte imbalance, anemia, infection, UTI and dysrhythmia. Medical Records Attestation: I reviewed the patient's medical records. Home Medications Current Medication List: was personally reviewed by me Laboratory Data Attestation: I reviewed the patient's lab results. Result diagrams: 12/18/18 12:08 12/18/18 12:08 Lab Results 12/18/18 12/18/18 12/18/18 Range/Units 12:08 12:08 12:08 WBC 7.21 (4.8-10.8) K/uL RBC 4.72 (4.2-5.4) M/uL Hgb 13.5 (12.0-16.0) g/dL Hct 41.3 (37-47) % MCV 87.5 (80-100) fL MCH 28.6 (25-34) pg MCHC 32.7 (32-36) g/dL RDW Std Deviation 43.4 (36.4-46.3) fL RDW Coeff of Claudette 13.5 (11.5-14.5) % Plt Count 207 (130-400) K/uL MPV 10.0 (7.4-10.4) fL Immature Gran % (Auto) 0.0 % Neut % (Auto) 70.2 % Lymph % (Auto) 19.7 % [place] % (Auto) 7.4 % Eos % (Auto) 1.9 % Baso % (Auto) 0.8 % Immature Gran # (Auto) 0.00 (0.00-0.02) K/uL Neut # (Auto) 5.06 (1.4-6.5) K/uL Lymph # (Auto) 1.42 (1.2-3.4) K/uL Liberty # (Auto) 0.53 (0.11-0.59) K/uL Eos # (Auto) 0.14 (0-0.5) K/uL Baso # (Auto) 0.06 (0-0.2) K/uL PT 10.5 (9.0-12.0) Seconds INR 1.0 (0.9-1.1) APTT 25.6 (21.0-31.0) Seconds PTT Ratio 0.9 Sodium 139 (136-145) mmol/L Potassium 3.3 L (3.5-5.1) mmol/L Chloride 100 (98-107) mmol/L Carbon Dioxide 34 H (21-32) mmol/L Anion Gap 5.0 (3-11) BUN 9 (7-18) mg/dl Creatinine 0.80 (0.6-1.2) mg/dl Est Cr Clr Drug Dosing 45.4 ml/min Est GFR ( Amer) 94.9 Est GFR (Non-Af Amer) 81.8 BUN/Creatinine Ratio 11.1 (10-20) Glucose 80 (70-99) mg/dl Calcium 8.9 (8.5-10.1) mg/dl Magnesium 2.1 (1.8-2.4) mg/dl Total Bilirubin 0.5 (0.2-1) mg/dl AST 18 (15-37) U/L ALT 18 (12-78) U/L Alkaline Phosphatase 111 (45-117) U/L Troponin I < 0.015 (0-0.045) ng/ml Total Protein 7.9 (6.4-8.2) gm/dl Albumin 4.0 (3.4-5.0) gm/dl Globulin 3.9 (2.5-4.0) gm/dl Albumin/Globulin Ratio 1.0 (0.9-2) Urine Color Urine Appearance (Clear) Urine pH (4.5-7.5) Ur Specific [place] (1.000-1.030) Urine Protein (Negative) Urine Glucose (UA) (Negative) Urine Ketones (Negative) Urine Blood (Negative) Urine Nitrite (Negative) Urine Bilirubin (Negative) Urine Urobilinogen (Negative) Ur Leukocyte Esterase (Negative) Urine RBC (0-4) /hpf Urine WBC (0-5) /hpf Ur Epithelial Cells (0-5) /lpf Urine Bacteria (Negative) 12/18/18 Range/Units 13:03 WBC (4.8-10.8) K/uL RBC (4.2-5.4) M/uL Hgb (12.0-16.0) g/dL Hct (37-47) % MCV (80-100) fL MCH (25-34) pg MCHC (32-36) g/dL RDW Std Deviation (36.4-46.3) fL RDW Coeff of Claudette (11.5-14.5) % Plt Count (130-400) K/uL MPV (7.4-10.4) fL Immature Gran % (Auto) % Neut % (Auto) % Lymph % (Auto) % [place] % (Auto) % Eos % (Auto) % Baso % (Auto) % Immature Gran # (Auto) (0.00-0.02) K/uL Neut # (Auto) (1.4-6.5) K/uL Lymph # (Auto) (1.2-3.4) K/uL [place] # (Auto) (0.11-0.59) K/uL Eos # (Auto) (0-0.5) K/uL Baso # (Auto) (0-0.2) K/uL PT (9.0-12.0) Seconds INR (0.9-1.1) APTT (21.0-31.0) Seconds PTT Ratio Sodium (136-145) mmol/L Potassium (3.5-5.1) mmol/L Chloride (98-107) mmol/L Carbon Dioxide (21-32) mmol/L Anion Gap (3-11) BUN (7-18) mg/dl Creatinine (0.6-1.2) mg/dl Est Cr Clr Drug Dosing ml/min Est GFR ( Amer) Est GFR (Non-Af Amer) BUN/Creatinine Ratio (10-20) Glucose (70-99) mg/dl Calcium (8.5-10.1) mg/dl Magnesium (1.8-2.4) mg/dl Total Bilirubin (0.2-1) mg/dl AST (15-37) U/L ALT (12-78) U/L Alkaline Phosphatase (45-117) U/L Troponin I (0-0.045) ng/ml Total Protein (6.4-8.2) gm/dl Albumin (3.4-5.0) gm/dl Globulin (2.5-4.0) gm/dl Albumin/Globulin Ratio (0.9-2) Urine Color Yellow Urine Appearance Clear (Clear) Urine pH 6.0 (4.5-7.5) Ur Specific [place] 1.010 (1.000-1.030) Urine Protein Negative (Negative) Urine Glucose (UA) Negative (Negative) Urine Ketones Negative (Negative) Urine Blood Negative (Negative) Urine Nitrite Negative (Negative) Urine Bilirubin Negative (Negative) Urine Urobilinogen Negative (Negative) Ur Leukocyte Esterase Trace H (Negative) Urine RBC 0-4 (0-4) /hpf Urine WBC 0-5 (0-5) /hpf Ur Epithelial Cells 5-10 H (0-5) /lpf Urine Bacteria 1+ H (Negative) Imaging Data Radiologist's Impression: Radiology results as stated below per my review and the radiologist's interpretation: XR chest 1V portable HISTORY: 58 years-old Female sob, weakness acute shortness of breath with weakn ess COMPARISON: Chest radiograph 11/28/2017 TECHNIQUE: Portable AP view of the chest FINDINGS: Cardiac silhouette is enlarged, unchanged. Prior median sternotomy. Pulmonary vascular congestion without overt pulmonary edema. Postoperative changes of the right midlung. Blunting of the costophrenic angles without large pleural effusion or pneumothorax. Mild chronic interstitial coarsening. Bones appear grossly intact. IMPRESSION: Cardiomegaly with pulmonary vascular congestion. The above report was generated using voice recognition software. It may contain grammatical, syntax or spelling errors. Electronically signed by: Chemo Mcdaniel M.D. 12/18/2018 12:[address] head/brain wo con CT DOSE: 537.48 mGy.cm HISTORY: Mental status change Stroke evaluation TECHNIQUE: Multiaxial CT images of the head were performed without the use of intravenous contrast. A dose lowering technique was utilized adhering to the principles of ALARA. Comparison: 07/27/2008 Findings: The paranasal sinuses and mastoid air cells are clear. The calvarium and skull base are intact. The ventricles and sulci are within normal limits. There is no mass, hematoma, midline shift, or acute infarct. Chronic small vessel change of the left occipital periventricular region. This is unchanged. Impression: No acute intracranial abnormality. Chronic small vessel change. The above report was generated using voice recognition software. It may contain grammatical, syntax or spelling errors. Electronically signed by: James Escobedo M.D. 12/18/2018 12:32 PM MR brain wo con HISTORY: Mental status change stroke TECHNIQUE: Multiplanar multisequence MRI of the brain was performed without the use of contrast. COMPARISON STUDY: 04/27/2007 FINDINGS: Findings consistent with a small acute/subacute infarct of the left periventricular and left external capsule region. Made to the study shows components of chronic small vessel change. Multiple foci of increased signal within the periventricular and deep white matter regions are stable. The anterolateral canals are unremarkable. The sella and parasellar regions are unremarkable. IMPRESSION: 1. Small acute/subacute infarct left periventricular and left external capsule region. 2. Moderate to rather significant chronic small vessel change unaltered compared to prior studies. The above report was generated using voice recognition software. It may contain grammatical, syntax or spelling errors. Electronically signed by: James Escobedo M.D. 12/18/2018 3:[address] ANGIOGRAM OF THE BRAIN; CT ANGIOGRAM OF THE NECK CLINICAL HISTORY: Strokelike symptoms. COMPARISON STUDY: Unenhanced CT of the brain performed the same day 12/18/2018. MR angiogram of the brain dated 10/19/2006. CT angiogram of the neck dated 04/19/2013. TECHNIQUE: Following the IV administration of 120 of Optiray 320, CT angiogram of the head and neck was performed from the aortic arch to the vertex. Images are reviewed in the axial, sagittal, and coronal planes. 3-D MIPS images are created and assessed. IV contrast was administered without complication. All measurements were calculated based on NASCET criteria. A dose lowering technique was utilized adhering to the principles of ALARA. CT DOSE: 390.24 mGy.cm FINDINGS: Brain parenchyma: There is age-related involutional change noting mild subcortical and periventricular microangiopathic disease. There is no hemorrhage, mass effect, or evidence of acute territorial ischemia by CT criteria. There is no evidence of enhancing mass lesion on the angiogram phase images. The ventricles, sulci, and cisterns are prominent secondary to involutional change. [place]-white matter differentiation is preserved. No extra- axial fluid collection is seen. Thoracic aorta: There is atherosclerotic calcification of the thoracic aorta. Visualized portions of the thoracic aorta are normal in caliber. The aortic arch demonstrates standard 3-vessel anatomy. Right carotid arterial system: The right common carotid artery is widely patent, as are the right internal and external carotid arteries. Left carotid arterial system: The left common carotid artery is widely patent, as are the left internal and external carotid arteries. Mild atherosclerotic plaque is seen in the carotid bulb. Vertebral arteries: The vertebral arteries are widely patent and codominant. Subclavian arteries: Widely patent bilaterally. Intracranial vasculature: There is atherosclerotic calcification of the cavernous carotid and vertebral arteries. The internal carotid arteries are patent at the skull base, as are the anterior and middle cerebral arteries bilaterally. The vertebrobasilar system and posterior cerebral arteries are widely patent. The vertebral arteries are codominant. There is no aneurysm, high-grade stenosis, or focal vessel cut off seen throughout the intracranial circulation. Jugular veins: Widely patent bilaterally. Dural sinuses: Patent. Lung apices: Advanced emphysematous change is seen in the upper lobes. Partially visualized upper lobe lung parenchyma appears clear. Soft tissues: The visualized pharyngeal soft tissues are normal in appearance noting angiographic phase technique. The oropharyngeal airway appears widely patent. The left lobe of the thyroid gland is diminutive. Low-attenuation thyroi d nodules measure up to 7 mm. The salivary glands are normal in appearance. No cervical lymphadenopathy is seen. Orbits: The bony orbits are intact. Orbital contents are normal in appearance. Skeletal structures: The skeletal structures are osteopenic. The calvarium appears intact. The cervical spine is maintained noting mild spondylosis. No lytic or blastic lesion is seen. Midline sternotomy wires are noted. Sinuses and mastoids: The paranasal sinuses are clear. The mastoid air cells are well pneumatized. IMPRESSION: 1. There is no hemorrhage, mass effect, or evidence of acute territorial ischemia by CT criteria noting angiographic phase technique. 2. Unremarkable CT angiogram of the brain. 3. Unremarkable CT angiogram of the neck. 4. Emphysema. Electronically signed by: Mack Perez M.D. 12/18/2018 2:13 PM ECG Data Indication: other (dizziness) Rate (beats per minute): 92 Rhythm: normal sinus Findings: + nonspecific-ST abn; no PVC and no ST elevation MDM Narrative There is no leukocytosis or concerning anemia. No coagulopathy. No significant electrolyte abnormality or kidney failure. No liver enzyme elevation. EKG shows a sinus rhythm, no acute ischemia. Cardiac enzyme testing x1 is not consistent with acute cardiac injury. Urinalysis does not show evidence for infection. Chest film shows some chronic changes, no pneumonia or CHF. Brain CT shows no acute bleed or mass-effect. CT angios of the head and neck did not show evidence for significant stenosis or occlusion. On exam, the patient did have right sided symptoms consistent with a recent CVA. Patient did receive IV saline, she has been resting comfortably during the ED stay. I did discuss the case with neurology. Hospitalization is warranted. The patie nt likely had a CVA 3 days ago. She is not a candidate for TPA of course as she is far out of the TPA window. I spoke to the patient, I talked to the adult protective caseworker. The on-call hospitalist has been consulted. Impression & Plan Stroke-like symptoms, Right sided weakness, Dizziness Discharge Plan Visit Data *Final* Discharge Date/Time: 12/18/18 15:51 Chief Complaint: Dizziness Stated Complaint: DIZZY, PAIN IN RIGHT ARM & LEG ED Provider: Mack Davis Discharge Problem: Stroke-like symptoms, Right sided weakness, Dizziness Patient Disposition: Admitted As Inpatient Discharge Instructions Interventions: ED Discharge Assessment Last Done: 12/18/18 15:51 The scribe's documentation has been prepared under my direction and personally reviewed by me in its entirety. I confirm that the note above accurately reflects all work, treatment, procedures, and medical decision making performed by me.
--- NOTE | 2018-12-18 15:45 | Magnetic Resonance Report ---
MR brain wo con HISTORY: Mental status change stroke TECHNIQUE: Multiplanar multisequence MRI of the brain was performed without the use of contrast. COMPARISON STUDY: 04/27/2007 FINDINGS: Findings consistent with a small acute/subacute infarct of the left periventricular and lef t external capsule region. Made to the study shows components of chronic small vessel change. Multiple foci of increased signal within the periventricular and deep white matter regions are stable. The anterolateral canals are unremarkable. The sella and parasellar regions are unremarkable. IMPRESSION: 1. Small acute/subacute infarct left periventricular and left external capsule region. 2. Moderate to rather significant chronic small vessel change unaltered compared to prior studies. The above report was generated using voice recognition software. It may contain grammatical, syntax or spelling errors. Electronically signed by: James Escobedo M.D. 12/18/2018 3:44 PM
[2018-12-18] MEDS ORDERED: POTASSIUM CHLORIDE 20 MEQ TABCR PO ONE (16:45)
[2018-12-18] MEDS: OXYCODONE HCL IR 5 MG TAB (IMMEDIATE RELEASE) PO PRN (19:05)
[2018-12-18] MEDS: FLUTICASONE/SALMETEROL (ADVAIR) 500/50 INH 14 PUFF INH SCH (20:24)
[2018-12-18] MEDS: PANTOprazole 40 MG TAB PO SCH (20:25)
[2018-12-18] MEDS ORDERED: LORazepam 0.5 MG TAB PO SCH (21:00)
[2018-12-18] MEDS ORDERED: GABAPENTIN 300 MG CAP PO SCH (21:00)
[2018-12-18] MEDS ORDERED: ATORVASTATIN 40 MG TAB PO SCH (21:00)
[2018-12-19] MEDS: OXYCODONE HCL IR 5 MG TAB (IMMEDIATE RELEASE) PO PRN ×3 (01:21→13:04)
[2018-12-19 07:05] LABS: Hematocrit (blood only) 34.3 % (37-47); Hemoglobin 11.1 g/dL (12.0-16.0); Mean Corpuscular Hemoglobin 28.2 pg (25-34); Mean Corpuscular Hgb Conc 32.4 g/dL (32-36); Mean Corpuscular Volume 87.3 fL (80-100); Mean Platelet Volume 9.6 fL (7.4-10.4); Platelet Count 151 K/uL (130-400); RDW Coefficient of Variation 13.4 % (11.5-14.5); RDW Standard Deviation 43.2 fL (36.4-46.3); Red Blood Count 3.93 M/uL (4.2-5.4); White Blood Count 4.89 K/uL (4.8-10.8)
[2018-12-19 07:42] LABS: Estimated Average Glucose 100 mg/dl; Hemoglobin A1C 5.1 % (4.5-5.6)
[2018-12-19 07:49] LABS: BUN Creatinine Ratio 9.7 (10-20); Calcium 8.5 mg/dl (8.5-10.1); Creatinine Clr Calc Pharmacy 46.7 ml/min; Est GFR (African American) 99.3; Est GFR (Non-African American) 85.7; Potassium 4.2 mmol/L (3.5-5.1)
[2018-12-19] MEDS: PANTOprazole 40 MG TAB PO SCH (07:51)
[2018-12-19] MEDS: FLUTICASONE/SALMETEROL (ADVAIR) 500/50 INH 14 PUFF INH SCH (07:51)
[2018-12-19] MEDS ORDERED: CYANOCOBALAMIN (VITAMIN B-12) 100 MCG TABLET PO SCH (09:00)
[2018-12-19] MEDS ORDERED: GABAPENTIN 300 MG CAP PO SCH (09:00)
[2018-12-19] MEDS ORDERED: METOPROLOL SUCC 25MG EXT REL TAB PO SCH (09:00)
[2018-12-19] MEDS ORDERED: MONTELUKAST SODIUM 10 MG TABLET PO SCH (09:00)
[2018-12-19] MEDS ORDERED: ATORVASTATIN 20 MG TAB PO SCH (09:00)
[2018-12-19] MEDS ORDERED: TIOTROPIUM BROMIDE 5 PUFF/90 MCG INH INH SCH (09:00)
[2018-12-19] MEDS ORDERED: CLOPIDOGREL BISULFATE 75 MG TAB PO SCH (09:00)
[2018-12-19] MEDS ORDERED: CHOLECALCIFEROL 1,000 UNITS TAB PO SCH (09:00)
[2018-12-19] MEDS ORDERED: NICOTINE 14 MG/24 HR PATCH TD SCH (09:00)
--- NOTE | 2018-12-19 09:39 | Neurology Consultation ---
Date of Consultation December 19, 2018 Assessment & Plan (1) Ischemic stroke: Acute/subacute ischemic stroke to the left periventricular/left external capsule region resulting in a mild right hemiparesis (face and arm greater than leg) and associated mild dysarthria/speech hesitancy. Stroke etiology would most likely be small vessel ischemic disease with risk factors of long-standing tobacco abuse and hypertension which was significantly elevated at the time of presentation and may be suboptimally controlled recently. History of mitral valve replacement on Plavix but of undetermined significance in the context of her recent stroke. Case discussed with Dr. Corley, attending hospitalist. Would recommend obtaining an up-to-date transthoracic echocardiogram. Continue with Plavix and statin. Continue with medical management of hypertension. Consultations with PT/OT/speech therapy. Smoking cessation. No further immediate recommendations. History of Present Illness Reason for Consultation: Stroke symptoms x3 days Requesting Physician: Linda Garcia Attending Physician: Chinmay Corley MD History of Present Illness The patient is a 58-year-old female who complains of persistent mild right-sided weakness, face arm and leg, that began 4 days ago. She then developed some associated dizziness and slurred speech which prompted her assessment in the emergency department yesterday. Past medical history notable for tobacco abuse, mitral valve replacement, hypertension, COPD, and peripheral neuropathy. The patient admits that she stopped smoking cigarettes at the onset of her symptoms. A CT of the head and CT angiogram of the head and neck were unremarkable. She was not considered an appropriate candidate for administration of TPA given the timing of onset of her symptoms. A follow-up brain MRI revealed a small acute to subacute infarct within the left periventricular/left external capsule region. Her Plavix and Lipitor have been continued. She has been modestly hypertensive although her blood pressure appears improved this morning. She denies headache and reports that her dizziness has resolved. She continues to report mild weakness of the right hand and subtle slurred speech. Additional details as below. Allergies Allergy/AdvReac Type Severity Reaction Status Date / Time aspirin Allergy Mild HIVES Verified 12/18/18 12:45 hydrochlorothiazide Allergy Unknown SICK IN Unverified 12/18/18 12:45 STOMACH AND RASH Home Medications Home Medications Medication Instructions Recorded Confirmed Type albuterol sulfate 1 puff INHALATION Q6H PRN 11/09/18 12/18/18 History albuterol sulfate 2.5 mg INHALATION QID PRN 11/09/18 12/18/18 History atorvastatin 40 mg PO QPM 11/09/18 12/18/18 History cholecalciferol (vitamin D3) 2,000 unit PO QAM 11/09/18 12/18/18 History [Vitamin D3] cyanocobalamin (vitamin B-12) 50 mcg PO DAILY 11/09/18 12/18/18 History [Vitamin B-12] fluticasone propion-salmeterol 1 inh INHALATION BID 11/09/18 12/18/18 History [Advair Diskus] furosemide 20 mg PO QAM PRN 11/09/18 12/18/18 History gabapentin 300 mg PO UD 11/09/18 12/18/18 History ipratropium bromide 1.25 ml INHALATION Q6H PRN 11/09/18 12/18/18 History linaclotide [Linzess] 145 mcg PO QAM 11/09/18 12/18/18 History metoprolol succinate 25 mg PO QAM 11/09/18 12/18/18 History montelukast 10 mg PO QAM 11/09/18 12/18/18 History nicotine (polacrilex) [Nicorette] 4 mg BUCCAL UD 11/09/18 12/18/18 History nitroglycerin 0.4 mg SUBLINGUAL UD PRN 11/09/18 12/18/18 History pantoprazole 40 mg PO BID 11/09/18 12/18/18 History tiotropium bromide [Spiriva 2 puff INHALATION DAILY 11/09/18 12/18/18 History Respimat] lorazepam 0.5 mg tablet 0.5 mg PO HS #30 tab 12/11/18 12/18/18 Rx clopidogrel 75 mg PO DAILY 12/18/18 12/18/18 History ibandronate 150 mg PO MONTHLY 12/18/18 12/18/18 History oxycodone 5 mg PO UD PRN 12/18/18 12/18/18 History Patient History Medical History Osteoporosis Opioid dependence CAD (coronary artery disease) Tobacco dependence Emphysema/COPD Heart disease (Chronic) Hypertension (Chronic) Anxiety COPD (chronic obstructive pulmonary disease) Depression Fibromyalgia GERD (gastroesophageal reflux disease) Hyperlipidemia Hypertension Irregular heartbeat On home oxygen therapy 2 LPM @ HS AND PRN DAILY Osteoporosis Peripheral neuropathy Recent unintentional weight loss over several months Transient ischemic attack (TIA) 2005 Surgical History H/O: hysterectomy (Resolved) S/P MVR (mitral valve replacement) (Resolved) History of bronchoscopy History of colonoscopy History of esophagogastroduodenoscopy (EGD) History of heart valve replacement 2005 - W/ DR. VALENCIA History of lung biopsy History of tooth extraction History of total abdominal hysterectomy and bilateral salpingo-oophorectomy Family History Mother Slow to wake up after anesthesia Sister Family history of diabetes mellitus Social History Preferred Language: Ukrainian Communication Ability: Effective [employer] Staff Officer Required: No Beliefs That Will Affect Care: None Current Living Situation: Significant Other Other Information That Helps Us Care for You: No Feels Safe at Home: Yes Safety Concerns: Feels Safe At This Time Smoking Status: Current some day smoker Tobacco Type: cigarettes ; Cigarettes Per Day: 5-7 CIG PER DAY ; Second Hand Exposure: Yes ; Tobacco Cessation Education Requested by Patient: No Hx Alcohol Use: No Hx Substance Use: No Review of Systems Constitutional: no fever and no chills Eyes: no blind spots and no diplopia Ear, Nose, Mouth, Throat: no ear pain and no hearing loss Respiratory: no cough and no dyspnea Cardiovascular: no chest pain and no palpitations Gastrointestinal: no nausea and no vomiting Genitourinary: no dysuria and no urinary incontinence Musculoskeletal: no neck pain and no myalgia Integumentary: no rash and no lesions Neurologic: as per Subjective / HPI Psychiatric: no depression and no anxiety Hematologic / Lymphatic: no easy bleeding and no easy bruising Physical Exam Physical Exam: The patient is a thin elderly female. She is alert and fully oriented. Recent and remote memory intact. Attention and concentration normal. Patient is able to name objects without difficulty. Repetition intact although speech is somewhat hesitant and dysarthric sounding. Patient exhibits an age-appropriate fund of knowledge and normal comprehension of vocabulary. Visual orellana full to confrontation. Visual acuity normal. Pupils equal round reactive to light and accommodation. Eye movements normal. Facial sensation intact. There is a right lower facial droop noted of moderate severity. Hearing intact bilaterally. Palate elevates to midline. Shoulder shrug intact. Tongue protrudes to midline. Sensation intact to all modalities in all 4 limbs. Deep tendon reflexes are intact and symmetrical for the arms and legs bilaterally. Plantar responses downgoing bilaterally. There is mild dysmetria with [id number] and [id number] on the right, no dysmetria with the left arm or leg. There is no dysdiadochokinesia. Ophthalmoscopic examination reveals normal-appearing optic disks and posterior segments. No papilledema or hemorrhages. Carotid pulses normal bilaterally, no bruits to auscultation. Gait and station not tested due to safety concerns. Patient exhibits very mild weakness for the right arm and leg (face and arm greater than leg). Strength for the other limbs intact. Muscle tone normal throughout. No atrophy. No abnormal movements observed. Results & Data Vital Signs (Past 12 Hours) Vital Signs Temp Pulse Pulse Resp BP BP Pulse Ox 12/19/18 07:22 36.5 C 60 18 158/62 H 98 12/19/18 03:58 36.9 C 65 17 151/65 H 99 12/18/18 23:26 63 12/18/18 23:10 36.4 C L 65 18 134/62 91 Laboratory Results WBC 4.89, hemoglobin 11.1, hematocrit 34.3, platelet count 151, sodium 142, potassium 4.2, BUN 8, creatinine 0.77, glucose 94, hemoglobin A1c 5.1, calcium 8.5, triglycerides 114, cholesterol 112, LDL 51, VLDL 23, HDL [address] of the head completed at the time of presentation was negative for acute process. The study did reveal chronic small vessel ischemic disease. I reviewed the images as well as the radiologist interpretation of this test. CT angiography of the head and neck were completed as well. No abnormalities observed. Follow-up brain MRI completed which revealed a small acute to subacute infarct within the left periventricular and left external capsule region as well as moderate to extensive chronic small vessel ischemic disease. I reviewed the images as well as the radiologist interpretation of this test. Electrocardiogram reveals normal sinus rhythm, 92 bpm. An echocardiogram completed in October 2017 revealed normal left ventricular size and wall thickness with an ejection fraction of 40 to 45% with abnormal septal motion consistent with postoperative state with evidence of a bioprosthetic mitral valve. Severe pulmonary hypertension also noted at that time.
[2018-12-19] MEDS ORDERED: STROKE PATIENT DISCHARGE STA (14:57)
--- NOTE | 2018-12-19 15:30 | Pharmacy Report ---
Pharmacist Stroke Counseling - Date of Service December 19, 2018 - Scope: Pharmacy has been consulted to provide medication discharge counseling for this patient admitted with ischemic stroke as per the Pharmacist Discharge Counseling for Stroke Patients Protocol. - Medications on Discharge: Home Medications Medication Instructions Recorded Confirmed Linzess 145 mcg PO QAM 11/09/18 12/18/18 Spiriva Respimat 2 puff INHALATION DAILY 11/09/18 12/18/18 Vitamin B-12 50 mcg PO DAILY 11/09/18 12/18/18 albuterol sulfate 1 puff INHALATION Q6H PRN 11/09/18 12/18/18 albuterol sulfate 2.5 mg INHALATION QID PRN 11/09/18 12/18/18 atorvastatin 40 mg PO QPM 11/09/18 12/18/18 cholecalciferol (vitamin D3) 2,000 unit PO QAM 11/09/18 12/18/18 [Vitamin D3] fluticasone propion-salmeterol 1 inh INHALATION BID 11/09/18 12/18/18 [Advair Diskus] furosemide 20 mg PO QAM PRN 11/09/18 12/18/18 gabapentin 300 mg PO UD 11/09/18 12/18/18 ipratropium bromide 1.25 ml INHALATION Q6H PRN 11/09/18 12/18/18 metoprolol succinate 25 mg PO QAM 11/09/18 12/18/18 montelukast 10 mg PO QAM 11/09/18 12/18/18 nicotine (polacrilex) [Nicorette] 4 mg BUCCAL UD 11/09/18 12/18/18 nitroglycerin 0.4 mg SUBLINGUAL UD PRN 11/09/18 12/18/18 pantoprazole 40 mg PO BID 11/09/18 12/18/18 clopidogrel 75 mg PO DAILY 12/18/18 12/18/18 ibandronate 150 mg PO MONTHLY 12/18/18 12/18/18 oxycodone 5 mg PO UD PRN 12/18/18 12/18/18 New Rx's Medication Instructions Recorded lorazepam 0.5 mg tablet 0.5 mg PO HS #30 tab 12/11/18 nicotine 14 mg TRANSDERMAL QAM #30 ea 12/19/18 - Action: The above medications, specifically ones for stroke treatment/prophylaxis, have been reviewed in detail with the patient and her niece prior to discharge. This includes indication, common adverse reactions, drug interactions, and medication administration. - Outcome: The patient has demonstrated understanding of the medications. Please note, they are aware that the pharmacist will call them within 72 hours post-discharge to confirm that the appropriate medications are being taken and answer any further medication related questions the patient might have at that time. Contact information Individual to be contacted: Jenniefr Phone number: Additional comments: - No changes noted to medications that will prevent stroke - clopidogrel and atorvastatin continued on discharge - Counseled that one of the most important things Jennifer can do to help prevent future strokes is to stop smoking. Jennifer noted she has tried and failed to quit before, but that she had already made the decision to try again and has not had a cigarette in 1.5 weeks. I offered encouragement and noted that nicotine patches are being prescribed on discharge which will help to *prevent* cravings. I also counseled that she could consider adding nicotine gum in the event that she experiences craving(s) despite the patch. Jennifer acknowledged understanding. Thank you for allowing pharmacy to be involved in the care of this patient. Please call [phone] or [phone] with any additional questions
--- NOTE | 2018-12-19 17:25 | Discharge Summary ---
Date of Service December 19, 2018 Admission HPI Per Admitting Provider This is a 58-year-old female with past medical history of chronic tobacco abuse, smokes 1/2 ppd x over 25 years, HTN, history of CVA, COPD and emphysema, pulmonary htn, who presents with acute onset of dizziness and difficulty walking which began on Monday. She reports being up walking and feeling like her right leg required being dragged for her to get home. This intermittently has improved. She reports having weakness in the R arm as well, and that this has been intermittently present over the past 3 days. She has had difficulty with picking up things with the right hand. She refused to come to the hospital until today when her boyfriend, who is present at bedside, convinced her to do so today. She denies any headache, slurring of speech, difficulty speaking, difficulty swallowing, changes in vision, numbness or tingling. She has been taking all her other medications as prescribed. Not a TPA candidate due to being out of the window for administration. CT of the head and neck was negative. Checking MRI now. Principal Diagnosis Stroke Discharge Exam Constitutional WD/WN, vitals as above Eyes normal visual orellana by confrontation and + anicteric sclerae Neck normal visual inspection and trachea midline Respiratory normal respiratory effort, lungs clear to auscultation Cardiovascular Rate/Rhythm: regular rate and regular rhythm Gastrointestinal (Abdomen) Inspection/Auscultation: abdomen not distended Percussion/Palpation: abdomen soft; abdomen nontender Musculoskeletal Head/Neck/Chest: normocephalic and head atraumatic Skin no rashes, warm and dry Neurologic CN's II-XI intact bilaterally and awake; not confused Speech / Cognition: normal speech Psychiatric A+Ox3, euthymic affect Discharge Data Allergies Allergy/AdvReac Type Severity Reaction Status Date / Time aspirin Allergy Mild HIVES Verified 12/18/18 12:45 hydrochlorothiazide Allergy Unknown SICK IN Unverified 12/18/18 12:45 STOMACH AND RASH Consultations 12/18/18 13:25 ED Decision to Admit Stat 12/18/18 14:36 Consult Case Management - Discharge Planning Routine Consult Neurology Routine Ordered Studies 12/18/18 12:01 CT head/brain wo con Stat 12/18/18 13:22 CT angio head w con Stat CT angio neck with con Stat 12/18/18 14:36 MR brain wo con Routine Hospital Course (1) Ischemic stroke: Initially presented with dizziness, slurred speech, and mild right-sided weakness. MRI brain on 12/18 showed Small acute/subacute infarct left per iventricular and left external capsule region. Echo on 12/19 was improved from prior. EF now 50%, mild/moderate aortic regurg, mildly elevated mitral gradient with her bioprosthetic mitral valve. - Seen by neurology - No new recs apart from stopping smoking. - By discharge day, she reported her strength and coordination were returned to normal. Her speech was slightly slurred (per patient's family); however, she was happy to pursue outpatient speech therapy. She was given a script for this. (2) Hypertension: -BP well controlled, continue metoprolol succinate 25 every morning, furosemide 20 mg every morning as needed (3) S/P MVR (mitral valve replacement): -Status post bioprosthetic mitral valve/aortic valve repair in 2005, with moderate aortic regurg and variable left ventricular systolic function since then. (4) CAD (coronary artery disease): -Follows with Dr. De La Rosa as an outpatient -Continue metoprolol succinate, Lasix, Plavix, atorvastatin (5) Emphysema/COPD: -Follows with Dr. bailey as an outpatient -Stable -No respiratory complaints at this time (6) Tobacco dependence: -Has been ongoing for a long time, multiple attempts to quit smoking, currently smokes 5 to 6 cigarettes/day -Cessation encouraged discussion was held regarding attempts to cut cigarette use in half by May 01 as a goal. -Will order nicotine patch (7) Opioid dependence: -Holding oxycodone and lorazepam in the setting of dizziness and strokelike symptoms -Can reorder for the patient if MRI is negative and symptoms improve -Use for chronic back pain (8) Osteoporosis: -Continue vitamin D supplementation (9) DVT prophylaxis: - teds Disposition: From home, lives with boyfriend, likely to be in the hospital x 1 year. Total Time Total Time Spent Total Time Spent (In Minutes): 35 Total Time Includes: Examination of the Patient and Communication With Other Providers Discharge Plan Discharge Items Patient Disposition: Home - Self-Care Reason For Visit: CVA Discharge Diagnosis: Stroke Discharge Goals: Decrease discomfort, Diagnostic testing and Improve function Activity: Resume your previous activity Non-emergency contact: Primary Care Provider and Neurologist Call non-emergency contact if: your symptoms worsen Follow-up/Referrals: Tyson Joshi MD [Primary Care Provider] - 12/26/18 11:00 am (Please, follow up at Dr. Joshi's office with his mechanic's assistant, Jessa James PA-C, on MondayDecember 26 at 11:00 am. *If you need to change this appointment, call the office at [phone].) Juan Daniel Plummer MD [Physician] - (Please see Dr. Plummer in 2-4 weeks for stroke follow up.) Diet: Regular Addtl Provider Instructions: Risk Factors for Stroke: You can reduce your chances of stroke by working with your medical provider to adopt a healthy lifestyle. Some specific ways to lower your chance of stroke are: * If you are a smoker, now is the time to stop smoking cigarettes. This is the biggest thing you can do to improve your health! * If you are diabetic, improve the control of your blood sugars * Avoid excessive amounts of alcohol * Control high blood pressure * Lose weight if you are overweight * Be sure to lead an active lifestyle * Eat a healthy diet low in salt, cholesterol and fat You should know about other risk factors for stroke that you are unable to control. These include: * Age 55 years or older * Male gender * Certain racial groups: , or / * Family History of Stroke, Mini stroke or Heart Attack * Sickle Cell Disease Follow Up: It is important for you to keep your follow up appointments with your medical provider. Who to Call and When: Medical Emergencies: Call 911 immediately if you experience any of the following warning signs and symptoms of Stroke: * Sudden numbness or weakness of the face, arm or leg, especially on one side of the body * Sudden confusion, trouble speaking or understanding * Sudden trouble seeing in one or both eyes * Sudden trouble walking, dizziness, loss of balance or coordination * Sudden severe headache with no cause Do not delay calling 911 if you experience any warning signs or symptoms of a stroke. Delay in seeking medical attention may affect what treatments can be given to you. . Prescriptions: New nicotine 7 mg/24 hr Patch 24 Hour 14 mg transdermal QAM Qty: 30 RF: 0 Continued lorazepam 0.5 mg tablet 0.5 mg PO HS Qty: 30 RF: 0 atorvastatin 40 mg Tablet 40 mg PO QPM RF: 0 albuterol sulfate 2.5 mg /3 mL (0.083 %) Solution For Nebulization 2.5 mg INHALATION QID PRN (Reason: SOB) RF: 0 Vitamin B-12 50 mcg Tablet 50 mcg PO DAILY RF: 0 pantoprazole 40 mg Tablet,Delayed Release (Dr/Ec) 40 mg PO BID RF: 0 fluticasone propion-salmeterol [Advair Diskus] 500-50 mcg/dose Blister With Device 1 inh INHALATION BID RF: 0 nitroglycerin 0.4 mg Tablet, Sublingual 0.4 mg sublingual UD PRN (Reason: Chest Pain) RF: 0 gabapentin 300 mg Capsule 300 mg PO UD RF: 0 montelukast 10 mg Tablet 10 mg PO QAM RF: 0 furosemide 20 mg Tablet 20 mg PO QAM PRN (Reason: Fluid Retention) RF: 0 metoprolol succinate 25 mg Tablet Extended Release 24 Hr 25 mg PO QAM RF: 0 albuterol sulfate 90 mcg/actuation Hfa Aerosol Inhaler 1 puff INHALATION Q6H PRN (Reason: SOB) RF: 0 ipratropium bromide 0.02 % Solution 1.25 ml INHALATION Q6H PRN (Reason: SOB) RF: 0 nicotine (polacrilex) [Nicorette] 2 mg Lozenge 4 mg BUCCAL UD RF: 0 cholecalciferol (vitamin D3) [Vitamin D3] 2,000 unit Tablet 2,000 unit PO QAM RF: 0 Linzess 145 mcg Capsule 145 mcg PO QAM RF: 0 Spiriva Respimat 2.5 mcg/actuation Mist 2 puff INHALATION DAILY RF: 0 clopidogrel 75 mg tablet 75 mg PO DAILY RF: 0 oxycodone 5 mg tablet 5 mg PO UD PRN (Reason: Pain) RF: 0 ibandronate 150 mg tablet 150 mg PO MONTHLY RF: 0 Stand-Alone Forms: Medications to Prevent Stroke, My [facility]/Other Patient Handouts: Stroke Thrombolytic Therapy, Stroke Taking Meds, Stroke Tips Swallow, Stroke Risk Factors, Stroke Prevent Another Caregiver Discharge Orders: Discharge Order (Routine); Ordered 12/19/18 Ordered By: Chinmay Corley Admission Data Admit Date/Time: 12/19/18 09:07 Attending Provider: Chinmay Corley Admit Provider: Cyn Castellon Primary Care Provider: Tyson Joshi Other Providers: Juan Daniel Plummer ; Chinmay Corley Service: Telemetry Medical Other Interventions: Discharge Summary Assessment (RN) Last Done: 12/19/18 15:16 DC Date/Time DO NOT enter until pt leaves facility: 12/19/18 17:10
--- NOTE | 2018-12-21 11:19 | Pharmacy Report ---
Pharmacist Post D/C Phone Note - Phone Note: Date of phone call: December 21, 2018. Individual with whom pharmacist spoke to: JERARDO Ponce AVERYMARIA CGABRIELADENIKE The following questions were reviewed during the phone call with responses listed below each: Can you tell me the medications that you are currently taking as well as when and how you take each medication? -See Table Below When have you missed any doses of your medications? - Uses weekly pillbox. Denies. Seems to be refilling her oral medications regularly, but question her adherence with inhalers as no records of her retail pharmacy filling any inhalers past year since both Advair and Spiriva have not been prescribed since 2016 per [employer]. Patient claims she relies on samples and is adamant about taking her inhalers every day. What side effects are you having from your medications, specifically, the new medications you were started on? - Denies, none reported What questions do you have about your medications? - None, but was unclear regarding indications for certain Rx's (all were reviewed with her today) What problems are you having obtaining your medications? - Denies, states she has good insurance When is your next appointment with your primary care doctor? - Scheduled next Weds with PCP on 12/26/18. Still waiting for Neurology appointment to be scheduled. Additional comments: * Has not received nicotine patches yet as there was an issue with the Rx. Called [facility] ([place]) to clarify - it turns out the nicotine 7mg patches were prescribed, but the dose in the directions was 14mg daily. Given that patient smokes ~10 cigs/day (1/2 ppd), the 14mg patches are appropriate. Zoran amezcua clarification given to [facility]. They will fill 14mg patches. Patient aware to black pickler. * Smokes up to 1/2 ppd. Denies smoking since home. Last cigarette Tues AM prior to hospital admission. Says she tried to quit smoking in the past and has been on nicotine lozenges, Chantix (c/o psychiatric adverse effects). Admits to cravings, but tries to "think about something else"... She was apparently not using nicotine lozenges correctly as she was sucking on them like a regular lozenge - explained need to "park" between her gum and cheek after she feels a tingling for optimal efficacy. Also advised no food/drink 15 min before after. Recommend to use lozenges prn in addition to patches. Encouraged smoking cessation. She has phone # for smoking counseling. * Patient is wondering about speech therapy and if there are services available to help clean her house - advised to ask PCP office next appointment. * Denies any adverse effects from statin or anti-platelets - encouraged continued adherence. * No issues with constipation despite chronic opioid use. * Patient has COPD and supposedly takes Advair and Spiriva (Respimat is recorded and was last prescribed in 2018, but patient states she only has Spiriva capsules...) "every day", but again, unsure how if she has not received them from her retail pharmacy... * Previously prescribed Boniva, but reports intolerance and has not been taking. Recommend f/u with PCP to discuss other options for osteoporosis. * Has been taking Protonix 40mg BID for past few years. Recommend to discuss with PCP need for high dose PPI. Unsure if she can taper to once daily. Explained potential risk of long-term PPI use. * Takes lorazepam every night for sleep - advised caution, especially as she becomes older than 65 y/o, since she is on concomitant opioids. As per the Pharmacist Discharge Counseling for Stroke Patients Protocol, this phone call has been completed within 72 hours of discharge. Thank you for allowing us to be involved in the care of this patient. - Home Medications: Home Medications Medication Instructions Recorded Confirmed Linzess 145 mcg PO QAM (NOT TAKING - last prescribed 2016) 11/09/18 12/18/18 Spiriva CAPSULES 1 cap INHALATION DAILY 11/09/18 12/18/18 Vitamin B-12 1000 mcg PO DAILY 11/09/18 12/18/18 albuterol sulfate 1 puff INHALATION Q6H PRN 11/09/18 12/18/18 albuterol sulfate 2.5 mg INHALATION QID PRN 11/09/18 12/18/18 atorvastatin 40 mg PO QPM 11/09/18 12/18/18 cholecalciferol (vitamin D3) 2,000 unit PO QAM 11/09/18 12/18/18 [Vitamin D3] fluticasone propion-salmeterol 1 inh INHALATION BID 11/09/18 12/18/18 [Advair Diskus] furosemide 20 mg PO QAM PRN 11/09/18 12/18/18 gabapentin 300 mg PO UD (2 caps in AM, 3 caps HS) 11/09/18 12/18/18 ipratropium bromide 1.25 ml INHALATION Q6H PRN 11/09/18 12/18/18 metoprolol succinate 25 mg PO QAM 11/09/18 12/18/18 montelukast 10 mg PO QAM 11/09/18 12/18/18 nicotine (polacrilex) [Nicorette] 4 mg BUCCAL UD 11/09/18 12/18/18 nitroglycerin 0.4 mg SUBLINGUAL UD PRN 11/09/18 12/18/18 pantoprazole 40 mg PO BID (has been taking awhile) 11/09/18 12/18/18 clopidogrel 75 mg PO DAILY 12/18/18 12/18/18 ibandronate 150 mg PO MONTHLY (States intolerant, not taking) 12/18/18 12/18/18 New Rx's Medication Instructions Recorded lorazepam 0.5 mg tablet 0.5 mg PO HS #30 tab 12/11/18 nicotine 14 mg TRANSDERMAL QAM #30 ea 12/19/18 oxycodone 5 mg tablet 5 mg PO .COMPLEX PRN 17 Days #100 12/20/18 tab
== END 2018-12-19 17:10 | disposition home or self-care (01) | DRG 65 ==
LOC: ED 11:42 → 2N 11:42 → SUATTDRO 14:41 → 2N 15:51

== ENCOUNTER 2022-09-06 09:09 | Inpatient (IN) ==
--- NOTE | 2022-09-06 09:46 | Emergency Department Note ---
Impression & Plan Bilateral edema of lower extremity, CHF (congestive heart failure), Elevated troponin, Bilateral pleural effusion ED Provider Note ED Provider Note NAME: JERARDO MONTES AGE:62 SEX: Female : 1960 ARRIVES VIA: EMS INFORMANT: Patient ED PROVIDER(s): Kareen Woody DO CHIEF COMPLAINT: Leg swelling HPI: This is a 62-year-old female presents emergency department due to concern for bilateral lower extremity swelling. Patient states symptoms first began 2 to 3 days ago. Patient denies any recent fevers, chills, or URI symptoms. She denies any change in her cough or shortness of breath. She denies any chest pain or pressure. She states she has intermittently felt weaker in her legs as though they may give out on her, particularly with standing and walking. Patient states she is also intermittently been dizzy. No symptoms of dizziness at this current time. She denies any other happening headaches, paresthesias, or vision changes. Patient states she does wear oxygen at night, has not felt as though she was more short of breath during the day or with exertion and has not been using it during the day. Patient states she does have a nebulizer at home for breathing treatments although she rarely needs to use those. Patient does have extensive cardiac history and follows with Dr. De La Rosa and Krystian Valles PA-C for cardiology. Patient states she did see them in recent months. Patient states she was previously hospitalized for a similar episode, she does not know why she previously had leg swelling. Patient also has a history of COPD. Staff reports she was hypoxic when first arriving so she was placed on oxygen via nasal cannula with immediate improvement. PAST MEDICAL HISTORY:See Below PAST SURGICAL HISTORY:See Below FAMILY HISTORY:See Below SOCIAL HISTORY:See Below HOME MEDICATIONS:See Below ALLERGIES:See Below VITALS:See Below PHYSICAL EXAMINATION: GENERAL: alert, well appearing, well nourished, no distress, non-toxic EYE EXAM: normal conjunctiva, PERRL and EOM's grossly intact OROPHARYNX: no exudate, no erythema, lips, buccal mucosa, and tongue normal and mucous membranes are moist NECK: supple, no nuchal rigidity, no adenopathy, non-tender LUNGS: Clear to auscultation. Normal chest wall mechanics, no w/r/r HEART: no murmurs, S1 normal and S2 normal ABDOMEN: abdomen soft, non-tender, normo-active bowel sounds, no masses, no rebound or guarding. BACK: Back is symmetrical on inspection and there is no deformity, no midline tenderness, no CVA tenderness. SKIN: no rashes, petechiae, orbruising UPPER EXTREMITIES: upper extremities are grossly normal. FROM, nml pulses b/l. LOWER EXTREMITIES: 2+ b/l pedal pitting edema, trace edema further proximally. FROM, nml pulses b/l. NEURO EXAM: Normal sensorium, cranial nerves II-XII grossly intact, normal speech, no facial droop,nogross weakness of arms, no gross weakness of legs. Gross sensation intact. No ataxia. Vital Signs: reviewed and remarkable Differential Diagnosis: CHF, chronic lymphedema, obstructive lymphadenopathy, BRITTNEY, nephrotic syndrome, medication ADR, dependent edema as well as others were considered MEDICAL DECISION MAKING: This is a 62-year-old female who presents emergency department due to concern for increased lower extremity edema. Patient initially hypoxic on arrival although denied any sense of feeling short of breath. She was placed on oxygen by nursing staff however during my bedside evaluation I was able to wean her down to 2 L/min and she maintained her saturations. Patient was otherwise afebrile and hemodynamically stable. Labs drawn and sent, IV established, EKG and chest x-ray performed interpreted me at bedside, patient placed on telemetry. Patient with extensive cardiac history which was reviewed. Patient noted to have an elevated troponin, significantly elevated BNP, worsening pleural effusion noted on chest x-ray, and given history and lower extremity edema on exam I am concerned for congestive heart failure which she has had previously. Patient given a dose of Lasix here and case discussed with the hospitalist team for additional evaluation and management. Patient continued to deny feeling short of breath or having any chest pain/pressure. Consultation(s): 1218: Discussed with Dr. Hernández. ER Treatment Provided: See below Diagnostics Interpreted By Me: -ECG: Normal sinus at 84, normal axis, normal intervals, inverted T waves noted in V3 through V4, as well as lead III, no evidence of ST elevation -Cardiac Monitoring: An order was placed for continuous cardiac monitoring. The monitor shows a rate of 88 with normal sinus rhythm. -Laboratory studies: As stated above and show below. -Imaging studies: X-ray Chest: A single view study of the chest was reviewed and was negative for cardiomegaly, focal infiltrate, or wide mediastinum. Bilateral pleural effusions noted. Sternotomy wires noted. Triage Nursing Note Reviewed Prior/Outside Records Reviewed -prior echo and cardiology visit reviewed Past Med/Surg History Medical History Anxiety Arthritis Bilateral pleural effusion CAD (coronary artery disease) Cholecystitis Chronic back pain + neck Chronic dyspnea Depression Diastolic CHF Emphysema/COPD Fibromyalgia GERD (gastroesophageal reflux disease) History of aortic valve disease s/p AVR (2005) History of nicotine dependence Hyperlipidemia Hypertension Ischemic stroke Remote hx per records (?11/2018) Mitral valve disease s/p MVR (2005) On home oxygen therapy 2L O2 HS + PRN Per patient, prescribed after hospital stay in which they noticed intermittent low O2 sats specifically nocturnal hypoxemia/hypoxia Osteoporosis Peripheral neuropathy Pulmonary hypertension Transient ischemic attack (TIA) 2005, 2019 Surgical History H/O: hysterectomy History of bronchoscopy History of colonoscopy History of esophagogastroduodenoscopy (EGD) History of heart valve replacement AVR (2005) History of lung biopsy Hx laparoscopic cholecystectomy (01/13/21) Laparoscopic Cholecystectomy Dr. Pulido 01-13-2021 S/P mitral valve replacement with bioprosthetic valve 2005 Family History Mother Slow to wake up after anesthesia Sister Family history of diabetes mellitus Father Stroke Other Coronary heart disease Denies family history of Ovarian cancer Prostate cancer Breast cancer Colorectal cancer Social History Smoking Status: Former smoker Tobacco Type: Cigarettes Age Started Using Tobacco: 18; packs per day: 0.5; Second Hand Exposure: Yes (FAMILY SMOKED); Do You Dip or Chew Tobacco: No; Hx Alcohol Use: No Hx Substance Use: No Preferred Language: [place] Communication Ability: Effective Hearing Ability: Normal Business System Consultant Required: No Beliefs That Will Affect Care: None marital status: Current Living Situation: Significant Other current occupational status: unemployed and disabled How many Children do You have: 2 Feels Safe at Home: Yes Safety Concerns: Feels Safe At This Time Childhood Exposure to Second-Hand Smoke: Yes Diet: regular during the past year weight has: decreased > 10 lbs Dental Care, Regularly: No Physical Activity Frequency: 3-4 Times per Week Seatbelt Use: always Sunscreen Use: Yes Assistive Devices: None Allergies Allergies Allergy/AdvReac Type Severity Reaction Status Date / Time aspirin Allergy Mild Hives Verified 09/06/22 12:04 hydrochlorothiazide Allergy Unknown "Sick in Verified 09/06/22 12:04 stomach", rash tramadol AdvReac Unknown Nausea Verified 09/06/22 12:04 Home Meds Home Medications Medication Instructions Recorded Confirmed nitroglycerin 0.4 mg sublingual 0.4 mg sublingual UD PRN Chest Pain 11/09/18 09/06/22 tablet tiotropium bromide 18 mcg capsule 1 cap inhalation QAM PRN Shortness 12/21/18 09/06/22 with inhalation device (Spiriva Of Breath Or Wheezing with HandiHaler) albuterol sulfate 2.5 mg/3 mL 2.5 mg inhalation Q4H PRN SOB 01/17/19 09/06/22 (0.083 %) solution for nebulization albuterol sulfate 90 mcg/actuation 2 puffs inhalation QID PRN SOB 01/17/19 09/06/22 aerosol inhaler ipratropium bromide 0.02 % 1.25 ml inhalation .COMPLEX PRN SOB 01/17/19 09/06/22 solution for inhalation cholecalciferol (vitamin D3) 50 4,000 units PO QAM 05/21/19 09/06/22 mcg (2,000 unit) tablet (Vitamin D3) cyanocobalamin (vitamin B-12) 1,000 mcg PO QAM 05/21/19 09/06/22 1,000 mcg tablet Previous Rx's Medication Instructions Recorded Advair Diskus 250 mcg-50 mcg/dose 1 inh inhalation Q12H #60 ea 07/20/20 powder for inhalation (fluticasone propion-salmeterol) furosemide 20 mg tablet 20 mg PO QAM PRN Fluid Retention 09/01/21 #90 tabs folic acid 1 mg tablet 1 mg PO QAM #90 tabs 12/08/21 montelukast 10 mg tablet 10 mg PO QAM #90 tabs 02/23/22 lisinopril 2.5 mg tablet 2.5 mg PO QAM #90 tabs 03/28/22 atorvastatin 40 mg tablet 40 mg PO QPM #90 tabs 04/15/22 clopidogrel 75 mg tablet 75 mg PO QPM #90 tabs 05/03/22 metoprolol succinate 25 mg 12.5 mg PO QAM #45 tabs 05/03/22 tablet,extended release 24 hr pantoprazole 40 mg tablet,delayed 40 mg PO DAILY #90 tabs 05/16/22 release gabapentin 300 mg capsule 600 mg PO BID #360 caps 06/09/22 spironolactone 25 mg tablet 25 mg PO DAILY #90 tabs 06/27/22 lorazepam 0.5 mg tablet 0.5 mg PO HS #30 tabs 08/18/22 oxycodone 5 mg tablet See Rx Instructions PO Q4H PRN 09/02/22 pain #100 tabs Results & Data (ED) Vital Signs Vital Signs - 24 hr 09/06/22 09:17 09/06/22 11:29 Temperature 36.3 C L Temperature Source Temporal Artery Scan Pulse Rate 112 H Pulse Rate [Apical] 97 H Respiratory Rate 24 18 Respiratory Effort / Characteristics Non-Labored Respiratory Depth Normal Blood Pressure 109/67 Blood Pressure [Left Arm] 128/75 Blood Pressure Mean 81 Blood Pressure Mean [Left Arm] 92 Pulse Oximetry 72 L 96 Oxygen Delivery Method Room Air Nasal Cannula Oxygen Flow Rate 3 Sepsis Recent Fever Within 48 Hours No Sepsis New/Unexplained Change in Mental Status N/A Sepsis Action Taken by Nursing No Action Required Laboratory Data 09/06/22 10:36 09/06/22 10:36 Lab Results 09/06/22 09/06/22 09/06/22 Range/Units 10:36 10:36 10:36 WBC 9.23 (4.8-10.8) K/ul RBC 5.02 (4.20-5.40) M/uL Hgb 13.9 (12.0-16.0) g/dl Hct 43.2 (37.0-47.0) % MCV 86.1 (80.0-100.0) fL MCH 27.7 (25.0-34.0) pg MCHC 32.2 (32.0-36.0) g/dL RDW Std Deviation 46.3 (36.4-46.3) fL RDW Coeff of Claudette 14.7 H (11.5-14.5) % Plt Count 206 (130-400) K/uL MPV 10.2 (9.4-12.4) fL Immature Gran % (Auto) 0.5 % Neut % (Auto) 84.0 % Lymph % (Auto) 9.3 % Chambers % (Auto) 5.9 % Eos % (Auto) 0.0 % Baso % (Auto) 0.3 % Neut # (Auto) 7.75 H (1.40-6.50) K/uL Lymph # (Auto) 0.86 L (1.2-3.4) K/uL Chambers # (Auto) 0.54 (0.11-0.59) K/uL Eos # (Auto) 0.00 (0-0.50) K/uL Baso # (Auto) 0.03 (0-0.2) K/uL Immature Gran # (Auto) 0.05 (0.01-0.20) K/uL Sodium 139 (136-145) mmol/L Potassium 4.0 (3.5-5.1) mmol/L Chloride 99 (98-107) mmol/L Carbon Dioxide 35 H (21-32) mmol/L Anion Gap 5 (3-11) BUN 13 (6-23) mg/dl Creatinine 0.97 (0.6-1.2) mg/dl Est Cr Clr Drug Dosing 39.0 ml/min Est GFR ( Amer) 73.1 ml/min Est GFR (Non-Af Amer) 63.0 ml/min BUN/Creatinine Ratio 13.4 (10-20) Glucose 96 (70-99(Fasting)) mg/dl Calcium 8.9 (8.6-10.3) mg/dl Magnesium 1.5 L (1.7-2.4) mg/dl Total Bilirubin 0.7 (0.2-1.0) mg/dl AST 20 (13-39) U/L ALT 11 (7-52) U/L Alkaline Phosphatase 114 H (34-104) U/L Troponin I High Sens 21.8 H (0-14) pg/ml B-Natriuretic Peptide 1200 H (0-100) pg/ml Total Protein 6.0 (6.0-8.3) gm/dl Albumin 3.3 L (3.4-5.0) gm/dl Globulin 2.7 (2.5-4.0) gm/dl Albumin/Globulin Ratio 1.2 (0.9-2) Lipase 8 L (11-82) U/L TSH (0.300-4.500) uIu/ml SARS-CoV-2, RNA, NAAT (NEGATIVE) 09/06/22 09/06/22 Range/Units 10:36 12:08 WBC (4.8-10.8) K/ul RBC (4.20-5.40) M/uL Hgb (12.0-16.0) g/dl Hct (37.0-47.0) % MCV (80.0-100.0) fL MCH (25.0-34.0) pg MCHC (32.0-36.0) g/dL RDW Std Deviation (36.4-46.3) fL RDW Coeff of Claudette (11.5-14.5) % Plt Count (130-400) K/uL MPV (9.4-12.4) fL Immature Gran % (Auto) % Neut % (Auto) % Lymph % (Auto) % Chambers % (Auto) % Eos % (Auto) % Baso % (Auto) % Neut # (Auto) (1.40-6.50) K/uL Lymph # (Auto) (1.2-3.4) K/uL Chambers # (Auto) (0.11-0.59) K/uL Eos # (Auto) (0-0.50) K/uL Baso # (Auto) (0-0.2) K/uL Immature Gran # (Auto) (0.01-0.20) K/uL Sodium (136-145) mmol/L Potassium (3.5-5.1) mmol/L Chloride (98-107) mmol/L Carbon Dioxide (21-32) mmol/L Anion Gap (3-11) BUN (6-23) mg/dl Creatinine (0.6-1.2) mg/dl Est Cr Clr Drug Dosing ml/min Est GFR ( Amer) ml/min Est GFR (Non-Af Amer) ml/min BUN/Creatinine Ratio (10-20) Glucose (70-99(Fasting)) mg/dl Calcium (8.6-10.3) mg/dl Magnesium (1.7-2.4) mg/dl Total Bilirubin (0.2-1.0) mg/dl AST (13-39) U/L ALT (7-52) U/L Alkaline Phosphatase (34-104) U/L Troponin I High Sens (0-14) pg/ml B-Natriuretic Peptide (0-100) pg/ml Total Protein (6.0-8.3) gm/dl Albumin (3.4-5.0) gm/dl Globulin (2.5-4.0) gm/dl Albumin/Globulin Ratio (0.9-2) Lipase (11-82) U/L TSH 2.610 (0.300-4.500) uIu/ml SARS-CoV-2, RNA, NAAT NEGATIVE (NEGATIVE) Administered Medications Oxycodone HCl (Oxycodone Hcl Ir 5 Mg Tab (Immediate Release)) 5 mg PO Q4H PRN PRN Reason: pain Stop: 09/20/22 13:58 Last Admin: 09/06/22 15:04 Dose: 5 mg Documented By: GRABIELG Discontinued Medications Furosemide (Furosemide Inj 20 Mg/2 Ml Vial) 20 mg IV ONE ONE Stop: 09/06/22 11:48 Last Admin: 09/06/22 12:05 Dose: 20 mg Documented By: ALEX Imaging Data Radiologist's Impression: Chest X-Ray 09/06/22 09:42 XR chest 1V portable HISTORY: 62 years-old Female hypoxia acute hypoxia COMPARISON: 08/01/2022 TECHNIQUE: AP view of the chest FINDINGS: Cardiac silhouette is enlarged. Pulmonary vascular congestion. Prior median sternotomy. Postoperative changes of the right lung. Emphysema with chronic interstitial coarsening. No pneumothorax. Left greater than right pleural effu sions with mild bibasilar consolidation. Degenerative changes of the shoulders and spine. IMPRESSION: 1. Cardiomegaly with pulmonary vascular congestion. 2. Left greater than right layering pleural effusions with mild bibasilar consolidation. 3. Emphysema with chronic interstitial coarsening. ACT 112: Negative or not required by law. The above report was generated using voice recognition software. It may contain grammatical, syntax or spelling errors. Electronically signed by: [place] Mcdaniel M.D. 09/06/2022 10:38 AM Discharge Plan Visit Data Chief Complaint: Swelling/Edema to Extremity Stated Complaint: SWELLING FEET, DIZZINESS, LEGS GET TIRED ED Provider: Kareen Woody Discharge Problem: Bilateral edema of lower extremity, CHF (congestive heart failure), Elevated t roponin, Bilateral pleural effusion Patient Disposition: Admitted As Inpatient Discharge Instructions Interventions: ED Discharge Assessment Last Done: 09/06/22 13:22
--- NOTE | 2022-09-06 10:39 | XRay Report ---
XR chest 1V portable HISTORY: 62 years-old Female hypoxia acute hypoxia COMPARISON: 08/01/2022 TECHNIQUE: AP view of the chest FINDINGS: Cardiac silhouette is enlarged. Pulmonary vascular congestion. Prior median sternotomy. Postoperative changes of the right lung. Emphysema with chronic interstitial coarsening. No pneumothorax. Left gre ater than right pleural effusions with mild bibasilar consolidation. Degenerative changes of the shou lders and spine. IMPRESSION: 1. Cardiomegaly with pulmonary vascular congestion. 2. Left greater than right layering pleural effusions with mild bibasilar consolidation. 3. Emphysema with chronic interstitial coarsening. ACT 112: Negative or not required by law. The above report was generated using voice recognition software. It may contain grammatical, syntax o r spelling errors. Electronically signed by: [place] Mcdaniel M.D. 09/06/2022 10:38 AM
[2022-09-06 11:00] LABS: Basophils # (auto) 0.03 K/uL (0-0.2); Basophils % (auto) 0.3 %; Hematocrit (blood only) 43.2 % (37.0-47.0); Hemoglobin 13.9 g/dl (12.0-16.0); Immature Granulocytes # (auto) 0.05 K/uL (0.01-0.20); Immature Granulocytes % (auto) 0.5 %; Lymphocytes # (auto) 0.86 K/uL (1.2-3.4); Lymphocytes % (auto) 9.3 %; Mean Corpuscular Hemoglobin 27.7 pg (25.0-34.0); Mean Corpuscular Hgb Conc 32.2 g/dL (32.0-36.0); Mean Corpuscular Volume 86.1 fL (80.0-100.0); Mean Platelet Volume 10.2 fL (9.4-12.4); Monocytes # (auto) 0.54 K/uL (0.11-0.59); Monocytes % (auto) 5.9 %; Neutrophils # (auto) 7.75 K/uL (1.40-6.50); Platelet Count 206 K/uL (130-400); RDW Coefficient of Variation 14.7 % (11.5-14.5); RDW Standard Deviation 46.3 fL (36.4-46.3); Red Blood Count 5.02 M/uL (4.20-5.40); White Blood Count 9.23 K/ul (4.8-10.8)
[2022-09-06 11:23] LABS: Albumin Globulin Ratio 1.2 (0.9-2); Albumin Level 3.3 gm/dl (3.4-5.0); BUN Creatinine Ratio 13.4 (10-20); Bilirubin,Total 0.7 mg/dl (0.2-1.0); Calcium 8.9 mg/dl (8.6-10.3); Est GFR (African American) 73.1 ml/min; Globulin 2.7 gm/dl (2.5-4.0); Magnesium 1.5 mg/dl (1.7-2.4)
[2022-09-06 11:25] LABS: Troponin I High Sensitivity 21.8 pg/ml (0-14)
[2022-09-06] MEDS ORDERED: FUROSEMIDE INJ 20 MG/2 ML VIAL IV ONE (11:47)
--- NOTE | 2022-09-06 12:25 | History & Physical Report ---
Date of Service September 06, 2022 Assessment & Plan (1) Acute on chronic heart failure with preserved ejection fraction: Plan: Only symptom of leg swelling but also b/l pleural effusions and pulmonary edema on exam/CXR Lasix 20mg IV BID Strict I&Os, daily weights Fluid restrict 1500ml, Low Na diet Prior echo in June, no need to repeat this [facility]F clinic referral (2) Hypoxia: Plan: Maybe somewhat exacerbated by her reynaulds and will use head monitor but clearly more pleural effusion present on CXR and she is in CHF warranting admission Aim O2 sats 88% in setting of COPD, elevated bicarb and prior CO2 retention on ABG in in 2018 (3) Bilateral pleural effusion: Plan: Suspect secondary to CHF as above. Discussed benefit and risks of thoracentesis and given asymptomatic and highly likely CHF pathology will defer this. (4) Severe protein-calorie malnutrition: Plan: Consult irrigation teacher for nutritional assessment (5) Aortic regurgitation: Plan: Suspect contributing towards CHF as above. Follow up with her ssrs report developer. (6) Raynauds disease: Plan: Use firehead to monitor O2 sats. Consider switching lisinopril for amlodipine to help with this. (7) Hypertension: Plan: Continue lisinopril, spironolactone Lasix as above (8) H/O stroke without residual deficits: Plan: Continue lcopidogrel and atorvastatin (9) Neuropathy: Plan: Continue outpatient oxycodone and gabapentin (10) Emphysema/COPD: Plan: Continue Advair diskus or hospital formulary equivalent Plan VTE Prophyalxis - Lovenox 30mg SQ daily Diet - Low Na, Heart halthy, Fluids restrict 1500ml Disposition - admit to med/tele Admission and Anticipated Discharge Date Admission Date: September 06, 2022 History of Present Illness Chief Complaint: Leg swelling Primary Care Provider: Barrington Joshi MD Jennifer Morrison is a 62 year old female with COPD and CHF who presents to the ER due to 2 days of ankle swelling. She reports not taking her PRN Lasxi. No shortness of breath, chest pain, orthopnea, PND, palpitations, presyncope, fever, chills, cough, nasal congestion or sinus pain. In the ER she was noted to be hypoxic in the low 80s on room air ther Allergies Allergy/AdvReac Type Severity Reaction Status Date / Time aspirin Allergy Mild Hives Verified 09/06/22 12:04 hydrochlorothiazide Allergy Unknown "Sick in Verified 09/06/22 12:04 stomach", rash tramadol AdvReac Unknown Nausea Verified 09/06/22 12:04 Home Medications Medication Instructions Recorded Confirmed Type nitroglycerin 0.4 mg sublingual 0.4 mg sublingual UD PRN Chest Pain 11/09/18 09/06/22 History tablet tiotropium bromide 18 mcg capsule 1 cap inhalation QAM PRN Shortness 12/21/18 09/06/22 History with inhalation device (Spiriva Of Breath Or Wheezing with HandiHaler) albuterol sulfate 2.5 mg/3 mL 2.5 mg inhalation Q4H PRN SOB 01/17/19 09/06/22 History (0.083 %) solution for nebulization albuterol sulfate 90 mcg/actuation 2 puffs inhalation QID PRN SOB 01/17/19 09/06/22 History aerosol inhaler ipratropium bromide 0.02 % 1.25 ml inhalation .COMPLEX PRN SOB 01/17/19 09/06/22 History solution for inhalation cholecalciferol (vitamin D3) 50 4,000 units PO QAM 05/21/19 09/06/22 History mcg (2,000 unit) tablet (Vitamin D3) cyanocobalamin (vitamin B-12) 1,000 mcg PO QAM 05/21/19 09/06/22 History 1,000 mcg tablet Advair Diskus 250 mcg-50 mcg/dose 1 inh inhalation Q12H #60 ea 07/20/20 09/06/22 Rx powder for inhalation (fluticasone propion-salmeterol) furosemide 20 mg tablet 20 mg PO QAM PRN Fluid Retention 09/01/21 09/06/22 Rx #90 tabs folic acid 1 mg tablet 1 mg PO QAM #90 tabs 12/08/21 09/06/22 Rx montelukast 10 mg tablet 10 mg PO QAM #90 tabs 02/23/22 09/06/22 Rx lisinopril 2.5 mg tablet 2.5 mg PO QAM #90 tabs 03/28/22 09/06/22 Rx atorvastatin 40 mg tablet 40 mg PO QPM #90 tabs 04/15/22 09/06/22 Rx clopidogrel 75 mg tablet 75 mg PO QPM #90 tabs 05/03/22 09/06/22 Rx metoprolol succinate 25 mg 12.5 mg PO QAM #45 tabs 05/03/22 09/06/22 Rx tablet,extended release 24 hr pantoprazole 40 mg tablet,delayed 40 mg PO DAILY #90 tabs 05/16/22 09/06/22 Rx release gabapentin 300 mg capsule 600 mg PO BID #360 caps 06/09/22 09/06/22 Rx spironolactone 25 mg tablet 25 mg PO DAILY #90 tabs 06/27/22 09/06/22 Rx lorazepam 0.5 mg tablet 0.5 mg PO HS #30 tabs 08/18/22 09/06/22 Rx oxycodone 5 mg tablet See Rx Instructions PO Q4H PRN 09/02/22 09/06/22 Rx pain #100 tabs Past Med/Surg History Medical History Anxiety Arthritis Bilateral pleural effusion CAD (coronary artery disease) Cholecystitis Chronic back pain + neck Chronic dyspnea Depression Diastolic CHF Emphysema/COPD Fibromyalgia GERD (gastroesophageal reflux disease) History of aortic valve disease s/p AVR (2005) History of nicotine dependence Hyperlipidemia Hypertension Ischemic stroke Remote hx per records (?11/2018) Mitral valve disease s/p MVR (2005) On home oxygen therapy 2L O2 HS + PRN Per patient, prescribed after hospital stay in which they noticed intermittent low O2 sats specifically nocturnal hypoxemia/hypoxia Osteoporosis Peripheral neuropathy Pulmonary hypertension Transient ischemic attack (TIA) 2005, 2019 Surgical History H/O: hysterectomy History of bronchoscopy History of colonoscopy History of esophagogastroduodenoscopy (EGD) History of heart valve replacement AVR (2005) History of lung biopsy Hx laparoscopic cholecystectomy (01/13/21) Laparoscopic Cholecystectomy Dr. Pulido 01-13-2021 S/P mitral valve replacement with bioprosthetic valve 2005 Family History Mother Slow to wake up after anesthesia Sister Family history of diabetes mellitus Father Stroke Other Coronary heart disease Denies family history of Ovarian cancer Prostate cancer Breast cancer Colorectal cancer Social History Smoking Status: Former smoker Tobacco Type: Cigarettes Age Started Using Tobacco: 18; packs per day: 0.5; Second Hand Exposure: Yes (FAMILY SMOKED); Do You Dip or Chew Tobacco: No; Hx Alcohol Use: No Hx Substance Use: No Preferred Language: Azeri Communication Ability: Effective Hearing Ability: Normal Logging Specialist Required: No Beliefs That Will Affect Care: None marital status: Current Living Situation: Significant Other current occupational status: unemployed and disabled How many Children do You have: 2 Feels Safe at Home: Yes Safety Concerns: Feels Safe At This Time Childhood Exposure to Second-Hand Smoke: Yes Diet: regular during the past year weight has: decreased > 10 lbs Dental Care, Regularly: No Physical Activity Frequency: 3-4 Times per Week Seatbelt Use: always Sunscreen Use: Yes Assistive Devices: None Review of Systems Review of Systems: All systems reviewed & are unremarkable except as noted in HPI & below Physical Exam Constitutional: well developed, + cachectic and + frail appearing; + not well nourished and no acute distress Eyes: PERRL, conjunctivae normal, anicteric sclerae ENMT: external ear and nose normal, oropharynx normal Neck: trachea midline, no thyromegaly Respiratory: normal respiratory effort; no respiratory distress Auscultation: + diminished lung sounds and + crackles (bibasal); no wheezes Cardiovascular: Rate/Rhythm: regular rate and regular rhythm Heart Sounds: no murmur Extremities: normal capillary refill and + pedal edema (1+ pitting in feet only); no calf tenderness Gastrointestinal (Abdomen): normal bowel sounds, soft, nontender, no hepatosplenomegaly Musculoskeletal: no cyanosis or clubbing, extremities motor strength 5/5 Skin: no rashes, warm and dry Neurologic: moves all extremities and awake; no focal motor deficits (no unilateral deficit) and not confused Psychiatric: A+Ox3, euthymic affect Results & Data Results & Data Vital Signs (Past 12 Hours) Vital Signs Temp Pulse Pulse Resp BP BP Pulse Ox 09/06/22 11:29 97 H 18 128/75 96 09/06/22 09:17 36.3 C L 112 H 24 109/67 72 L O2 Del Method O2 Flow Rate 09/06/22 11:29 Nasal Cannula 3 09/06/22 09:17 Room Air Laboratory Results Abnormal lab results 09/06/22 09/06/22 09/06/22 Range/Units 10:36 10:36 10:36 RDW Coeff of Claudette 14.7 H (11.5-14.5) % Neut # (Auto) 7.75 H (1.40-6.50) K/uL Lymph # (Auto) 0.86 L (1.2-3.4) K/uL Carbon Dioxide 35 H (21-32) mmol/L Magnesium 1.5 L (1.7-2.4) mg/dl Alkaline Phosphatase 114 H (34-104) U/L Troponin I High Sens 21.8 H (0-14) pg/ml B-Natriuretic Peptide 1200 H (0-100) pg/ml Albumin 3.3 L (3.4-5.0) gm/dl Lipase 8 L (11-82) U/L Diagnostic Findings XR chest 1V portable HISTORY: 62 years-old Female hypoxia acute hypoxia COMPARISON: 08/01/2022 TECHNIQUE: AP view of the chest FINDINGS: Cardiac silhouette is enlarged. Pulmonary vascular congestion. Prior median sternotomy. Postoperative changes of the right lung. Emphysema with chronic interstitial coarsening. No pneumothorax. Left greater than right pleural effusions with mild bibasilar consolidation. Degenerative changes of the shoulders and spine. IMPRESSION: 1. Cardiomegaly with pulmonary vascular congestion. 2. Left greater than right layering pleural effusions with mild bibasilar consolidation. 3. Emphysema with chronic interstitial coarsening. Medications Administered ER Medications Given: Lasix 20mg IV ECG Rate (beats per minute): 84 Rhythm: normal sinus Findings: + T-wave inversion (Anterior) Comparison ECG Date: from (March 28, 2020) Change: the following changes noted (TWI are new) Code Status & VTE Plan Code Status Full PG Care Time/CCT Total # of Minutes Spent Total Time Spent with Patient: Total time spent is greater than 50% in coordination of care (as documented) at patient's floor/unit and/or counseling patient: Coding Level of Care Code 49280 INT INP/OBS CARE 2/55MIN Diagnoses Acute on chronic heart failure with preserved ejection fraction I50.33 Hypoxia R09.02 Bilateral pleural effusion J90 Severe protein-calorie malnutrition E43 Aortic regurgitation I35.1 Raynauds disease I73.00 Hypertension I10 H/O stroke without residual deficits Z86.73 Neuropathy G62.9 Emphysema/COPD J43.9
[2022-09-06] MEDS ORDERED: ACETAMINOPHEN 325 MG TAB PO PRN (13:59)
[2022-09-06] MEDS: oxyCODONE HCL IR 5 MG TAB (IMMEDIATE RELEASE) PO PRN ×2 (15:04→19:33)
[2022-09-06] MEDS: GABAPENTIN 300 MG CAP PO SCH (20:47)
[2022-09-06] MEDS ORDERED: CLOPIDOGREL BISULFATE 75 MG TAB PO SCH (21:00)
[2022-09-06] MEDS ORDERED: MONTELUKAST SODIUM 10 MG TABLET PO SCH (21:00)
[2022-09-06] MEDS ORDERED: LORazepam 0.5 MG TAB PO SCH (21:00)
[2022-09-06] MEDS ORDERED: ATORVASTATIN 40 MG TAB PO SCH (21:00)
[2022-09-06] MEDS ORDERED: ENOXAPARIN INJ 30 MG/0.3 ML SYR SQ SCH (22:20)
[2022-09-06] MEDS: MAGNESIUM SULFATE / D5W 1 GM/100 ML BAG IV SCH (23:19)
[2022-09-07] MEDS: MAGNESIUM SULFATE / D5W 1 GM/100 ML BAG IV SCH (01:29)
--- NOTE | 2022-09-07 06:04 | Electrocardiogram Report ---
Test Reason : Blood Pressure : / mmHG Vent. Rate : 084 BPM Atrial Rate : 084 BPM P-R Int : 144 ms QRS Dur : 090 ms QT Int : 410 ms P-R-T Axes : 064 058 016 degrees QTc Int : 484 ms Normal sinus rhythm Possible Left atrial enlargement Minimal voltage criteria for LVH, may be normal variant T wave abnormality, consider anterior ischemia Prolonged QT Abnormal ECG When compared with ECG of 28-MAR-2020 16:47, Premature atrial complexes are no longer Present Nonspecific T wave abnormality now evident in Inferior leads T wave inversion now evident in Anterior leads Nonspecific T wave abnormality no longer evident in Lateral leads Confirmed by Baldomero Castro ([id number]) on 09/07/2022 6:04:12 AM Referred By: REFERRED SELF Confirmed By:Baldomero Castro
[2022-09-07] MEDS: oxyCODONE HCL IR 5 MG TAB (IMMEDIATE RELEASE) PO PRN ×2 (07:22→11:28)
[2022-09-07 07:36] LABS: Basophils # (auto) 0.03 K/uL (0-0.2); Basophils % (auto) 0.5 %; Eosinophils # (auto) 0.02 K/uL (0-0.50); Eosinophils % (auto) 0.4 %; Hematocrit (blood only) 39.4 % (37.0-47.0); Immature Granulocytes # (auto) 0.02 K/uL (0.01-0.20); Immature Granulocytes % (auto) 0.4 %; Lymphocytes # (auto) 1.21 K/uL (1.2-3.4); Lymphocytes % (auto) 21.9 %; Mean Corpuscular Hemoglobin 27.4 pg (25.0-34.0); Mean Corpuscular Volume 83.1 fL (80.0-100.0); Mean Platelet Volume 10.2 fL (9.4-12.4); Monocytes # (auto) 0.46 K/uL (0.11-0.59); Monocytes % (auto) 8.3 %; Neutrophils # (auto) 3.79 K/uL (1.40-6.50); Neutrophils % (auto) 68.5 %; Platelet Count 208 K/uL (130-400); RDW Coefficient of Variation 14.8 % (11.5-14.5); RDW Standard Deviation 45.1 fL (36.4-46.3); Red Blood Count 4.74 M/uL (4.20-5.40); White Blood Count 5.53 K/ul (4.8-10.8)
[2022-09-07 07:53] LABS: BUN Creatinine Ratio 14.5 (10-20); Calcium 8.2 mg/dl (8.6-10.3); Creatinine Clr Calc Pharmacy 46.6 ml/min; Est GFR (African American) 88.2 ml/min; Est GFR (Non-African American) 76.1 ml/min; Magnesium 2.2 mg/dl (1.7-2.4); Potassium 3.6 mmol/L (3.5-5.1)
[2022-09-07] MEDS: GABAPENTIN 300 MG CAP PO SCH (08:25)
[2022-09-07] MEDS ORDERED: PANTOprazole 40 MG TAB PO SCH (09:00)
[2022-09-07] MEDS ORDERED: lisinopril 2.5 MG TAB PO SCH (09:00)
[2022-09-07] MEDS ORDERED: UMECLIDINIUM BROMIDE 62.5MCG/BLISTER 7 PUFFS/INHALER INH SCH (09:00)
[2022-09-07] MEDS ORDERED: FUROSEMIDE INJ 20 MG/2 ML VIAL IV SCH (09:00)
[2022-09-07] MEDS ORDERED: SPIRONOLACTONE 25 MG TAB PO SCH (09:00)
[2022-09-07] MEDS ORDERED: FOLIC ACID 1 MG TAB PO SCH (09:00)
[2022-09-07] MEDS ORDERED: METOPROLOL SUCC 25MG EXT REL TAB PO SCH (09:00)
[2022-09-07] MEDS ORDERED: FLUTICASONE/VILANTEROL 100/25MCG 14 PUFFS/INHALER INH SCH (09:00)
[2022-09-07] MEDS ORDERED: CHOLECALCIFEROL 1,000 UNITS 25 MCG TAB PO SCH (09:00)
[2022-09-07] MEDS ORDERED: CYANOCOBALAMIN (B-12) 500 MCG TABLET PO SCH (09:00)
--- NOTE | 2022-09-07 11:34 | Discharge Summary ---
Discharge Summary Date of Service September 07, 2022 Admission HPI Per Admitting Provider Jennifer Morrison is a 62 year old female with COPD and CHF who presents to the ER due to 2 days of ankle swelling. She reports not taking her PRN Lasxi. No shortness of breath, chest pain, orthopnea, PND, palpitations, presyncope, fever, chills, cough, nasal congestion or sinus pain. In the ER she was noted to be hypoxic in the low 80s on room air ther Admission Exam Per Admitting Provider Constitutional: well developed, + cachectic and + frail appearing; + not well nourished and no acute distress Eyes: PERRL, conjunctivae normal, anicteric sclerae ENMT: external ear and nose normal, oropharynx normal Neck: trachea midline, no thyromegaly Respiratory: normal respiratory effort; no respiratory distress Auscultation: + diminished lung sounds and + crackles (bibasal); no wheezes Cardiovascular: Rate/Rhythm: regular rate and regular rhythm Heart Sounds: no murmur Extremities: normal capillary refill and + pedal edema (1+ pitting in feet only); no calf tenderness Gastrointestinal (Abdomen): normal bowel sounds, soft, nontender, no hepatosplenomegaly Musculoskeletal: no cyanosis or clubbing, extremities motor strength 5/5 Skin: no rashes, warm and dry Neurologic: moves all extremities and awake; no focal motor deficits (no unilateral deficit) and not confused Psychiatric: A+Ox3, euthymic affect Principal Dx & Hospital Course #1 = Principal Diagnosis (1) Acute on chronic heart failure with preserved ejection fraction: Only symptom of leg swelling but also b/l pleural effusions and pulmonary edema on exam/CXR With significant improvement in symptoms with Lasix 20mg IV BID x1 day Prior echo in June, no need to repeat this [facility] CH[facility] clinic referral placed which patient is amenable to Recommended patient return to a low-sodium diet with daily weights and as needed Lasix with close follow-up with cardiology/CHF clinic (2) Hypoxia: Patient has a history of COPD and per last pulmonology notes patient was recommended to be on 2 L nasal cannula at all times, however the patient admits that she only usually wears it at night. When she reported to the hospital for leg swelling she was noted to be hypoxic to the 60s without any sensation of dyspnea. Suspect that she has hypoxic at home a lot during the daytime due to not being on her oxygen therapy. Strongly encouraged patient to wear her 2 L nasal cannula at all times at home, patient was able to walk around her hospital room and lying in bed, talk with 2 L nasal cannula on with saturations 92 to 93%. (3) Bilateral pleural effusion: Secondary to CHF exacerbation, care of such as described above. (4) Severe protein-calorie malnutrition: Consult stenotype machine operator for nutritional assessment, was recommended to do protein shakes a few times a day, also expect that some of her low weight is due to emphysema and pulmonary wasting. (5) Aortic regurgitation: Suspect contributing towards CHF as above. Follow up with her ethylbenzene converter helper. (6) Raynauds disease: Use firehead to monitor O2 sats. (7) Hypertension: Continue lisinopril, spironolactone Lasix as above (8) H/O stroke without residual deficits: Continue clopidogrel and atorvastatin (9) Neuropathy: Continue outpatient oxycodone and gabapentin (10) Emphysema/COPD: Continue Advair diskus Plan Disposition: Home with self-care, patient's brother unfortunately and she has a on Monday. Given that she is at what is supposed to be her home baseline oxygen with no evidence of peripheral edema or fluid overload on exam I feel that she can go home with close follow-up with CHF clinic. Discharge Exam Constitutional Lobe developed, thin, no acute distress Respiratory normal respiratory effort, lungs clear to auscultation Cardiovascular RRR, no murmur, no edema Psychiatric A+Ox3, euthymic affect Updated Medication List Medication Instructions Recorded Confirmed Type nitroglycerin 0.4 mg sublingual 0.4 mg sublingual UD PRN Chest Pain 11/09/18 09/06/22 History tablet tiotropium bromide 18 mcg capsule 1 cap inhalation QAM PRN Shortness 12/21/18 09/06/22 History with inhalation device (Spiriva Of Breath Or Wheezing with HandiHaler) albuterol sulfate 2.5 mg/3 mL 2.5 mg inhalation Q4H PRN SOB 01/17/19 09/06/22 History (0.083 %) solution for nebulization albuterol sulfate 90 mcg/actuation 2 puffs inhalation QID PRN SOB 01/17/19 09/06/22 History aerosol inhaler ipratropium bromide 0.02 % 1.25 ml inhalation .COMPLEX PRN SOB 01/17/19 09/06/22 History solution for inhalation cholecalciferol (vitamin D3) 50 4,000 units PO QAM 05/21/19 09/06/22 History mcg (2,000 unit) tablet (Vitamin D3) cyanocobalamin (vitamin B-12) 1,000 mcg PO QAM 05/21/19 09/06/22 History 1,000 mcg tablet Advair Diskus 250 mcg-50 mcg/dose 1 inh inhalation Q12H #60 ea 07/20/20 09/06/22 Rx powder for inhalation (fluticasone propion-salmeterol) furosemide 20 mg tablet 20 mg PO QAM PRN Fluid Retention 09/01/21 09/06/22 Rx #90 tabs folic acid 1 mg tablet 1 mg PO QAM #90 tabs 12/08/21 09/06/22 Rx montelukast 10 mg tablet 10 mg PO QAM #90 tabs 02/23/22 09/06/22 Rx lisinopril 2.5 mg tablet 2.5 mg PO QAM #90 tabs 03/28/22 09/06/22 Rx atorvastatin 40 mg tablet 40 mg PO QPM #90 tabs 04/15/22 09/06/22 Rx clopidogrel 75 mg tablet 75 mg PO QPM #90 tabs 05/03/22 09/06/22 Rx metoprolol succinate 25 mg 12.5 mg PO QAM #45 tabs 05/03/22 09/06/22 Rx tablet,extended release 24 hr pantoprazole 40 mg tablet,delayed 40 mg PO DAILY #90 tabs 05/16/22 09/06/22 Rx release gabapentin 300 mg capsule 600 mg PO BID #360 caps 06/09/22 09/06/22 Rx spironolactone 25 mg tablet 25 mg PO DAILY #90 tabs 06/27/22 09/06/22 Rx lorazepam 0.5 mg tablet 0.5 mg PO HS #30 tabs 08/18/22 09/06/22 Rx oxycodone 5 mg tablet See Rx Instructions PO Q4H PRN 09/02/22 09/06/22 Rx pain #100 tabs Hospital Stay Data Consultations 09/06/22 12:18 ED Decision to Admit Stat 09/06/22 13:59 [facility]F Program Referral Routine Discharge Instructions Given to Patient (Per Discharging Provider) Congestive Heart Failure: Discharge Instructions Congestive Heart Failure essentially means your heart has "traffic jam" of fluid that backs up into your lungs. Fluid in the lungs then blocks up breathing space making you feel short of breath. In the hospital, our job is to get the fluid off so that you are able to breathe better, and then get you back on track with medication and lifestyle adjustments to keep the traffic jam from happening again. Salt (Sodium) The vast majority of people admitted to the hospital with fluid back up into the lungs get there because of too much salt in their diet. Most people know to avoid the salt shaker, but sodium is in almost anything prepackaged/prepared, as a preservative or as a flavoring agent. Get into the habit of looking at food labels, so you can see how much sodium is in the foods you eat. The most important number to look at is how much sodium is in each serving. But also notice the size of a serving. PAAY will frequently make a serving size so tiny that it does not look like there is much sodium per serving, but a normal person might eat 3 or 4 servings of the food and take in a lot more sodium than they realized. Keep a "budget" of how much sodium you take in in each day. Most people stay out of trouble and stay out of the hospital as long as they stay "under budget". The majority of congestive heart failure patients do well if they take less than 2000 mg of sodium a day. It is also important to stay at less than about 500 mg in any given meal. -Following How You Are Doing (Wet Versus Dry) Because managing congestive heart failure is an ongoing process, it is very important to learn how to follow your signs and symptoms and track how you are doing at home. This will allow you to catch problems before they become a big deal. In general, as your health care team, we look at managing congestive heart failure chronically as a balance of being "wet" (flooded with fluid) versus being "dry" (dehydrated from treatment). Wet - signs of fluid retention that would warrant further evaluation: 1) Check your weight daily. If your weight goes up by more than 2 pounds in 1 day, it is likely fluid related. This should warrant further thought, and/or a call to your doctor. 2) Follow your breathingmost of the time, early on when fluid backs up into your lungs, you will first start to notice shortness of breath when walking, or when lying flat. If you notice either of these, this should warrant further thought, and/or a call to your doctor. If you notice both an increase in weight and worsening breathing, that definitely warrants getting seen as soon as possible. Heart Failure Management Checklist: Limit Salt (Sodium) Intake to 2000mg (2g) per day and 500mg (0.5g) per meal Check weight daily (in same clothes, without shoes) every morning Are you too wet? If you gained 2lb or more - take note and call your doctor. If your breathing is not good (you are more short of breath than usual) call your doctor regardless of weight change. If you gained 2lb or more and you are short of breath, see your doctor or come to the emergency room. Are you too dry? If you feel weak or lightheaded, have lower blood pressures, make less urine than usual, or have a very dry mouth, call your doctor. You will get contacted by the Heart Failure clinic provider Hortencia Smiley. We think that having follow up with her will help keep your fluid balance normal and keep you out of [facility] hospital. Total Time Total Time Spent Total Time Spent (In Minutes): 40 minutes Coding Level of Care Code 44490 INP/OBS DISCH >30 MIN Diagnoses Acute on chronic heart failure with preserved ejection fraction I50.33 Hypoxia R09.02 Bilateral pleural effusion J90 Severe protein-calorie malnutrition E43 Aortic regurgitation I35.1 Raynauds disease I73.00 Hypertension I10 H/O stroke without residual deficits Z86.73 Neuropathy G62.9 Emphysema/COPD J43.9
== END 2022-09-07 13:25 | disposition home or self-care (01) | DRG 291 ==
LOC: ED 09:09 → 2N 12:36 → SUATTDRO 12:36 → 2N 13:22

== ENCOUNTER 2023-01-07 13:07 | Observation (INO) ==
--- NOTE | 2023-01-07 13:54 | XRay Report ---
SINGLE VIEW CHEST CLINICAL HISTORY: Generalized weakness. FINDINGS: An AP, portable, upright chest radiograph is compared to study dated 09/06/2022. The patient is status post midline sternotomy. The the heart is enlarged noting atherosclerotic calcification of the thoracic aorta. There is pulmonary vascular congestion. Enlargement of the central pulmonary travis dunia suggest pulmonary artery hypertension. Emphysema and chronic interstitial thickening is similar to previous. There is bibasilar scarring/atelectasis. Suture material projects over the right midlung . There are small pleural effusions, left larger than right. Foci of parenchymal scarring is seen thr oughout both lungs. No pneumothorax is seen. The skeletal structures are osteopenic. The bony thorax is grossly intact. IMPRESSION: 1. Cardiomegaly and emphysema with mild pulmonary vascular congestion. 2. Chronic left larger than right pleural effusions. ACT 112: Negative or not required by law. Electronically signed by: Mack Perez M.D. 01/07/2023 1:52 PM
[2023-01-07 14:00] LABS: Basophils # (auto) 0.04 K/uL (0.00-0.20); Basophils % (auto) 0.4 %; Eosinophils # (auto) 0.02 K/uL (0.00-0.50); Eosinophils % (auto) 0.2 %; Hematocrit (blood only) 47.5 % (37.0-47.0); Hemoglobin 15.1 g/dl (12.0-16.0); Immature Granulocytes # (auto) 0.06 K/uL (0.01-0.20); Immature Granulocytes % (auto) 0.6 %; Lymphocytes # (auto) 1.26 K/uL (1.20-3.40); Lymphocytes % (auto) 12.6 %; Mean Corpuscular Hemoglobin 28.1 pg (25.0-34.0); Mean Corpuscular Hgb Conc 31.8 g/dL (32.0-36.0); Mean Corpuscular Volume 88.3 fL (80.0-100.0); Mean Platelet Volume 10.7 fL (9.4-12.4); Monocytes # (auto) 0.57 K/uL (0.11-0.59); Monocytes % (auto) 5.7 %; Neutrophils # (auto) 8.07 K/uL (1.40-6.50); Neutrophils % (auto) 80.5 %; Platelet Count 217 K/uL (130-400); RDW Coefficient of Variation 14.6 % (11.5-14.5); RDW Standard Deviation 46.8 fL (36.4-46.3); Red Blood Count 5.38 M/uL (4.20-5.40); White Blood Count 10.02 K/ul (4.8-10.8)
--- NOTE | 2023-01-07 14:05 | Emergency Department Note ---
Impression & Plan Dizziness, Elevated troponin I level, BRITTNEY (acute kidney injury), Abnormal EKG ED Provider Note NAME: JERARDO MONTES AGE: 62 SEX: F : 1960 ARRIVES VIA: Ambulance INFORMANT: Patient, ED PROVIDER(S): Dejon Ariza DO CHIEF COMPLAINT: Dizziness HPI: The patient is a 62-year-old female who does have a history of lung problems as well as CHF who presented to the emergency department for an evaluation of dizziness. The patient is noted she has had to increase her oxygen recently. She is also noticed when she stands she gets very dizzy and lightheaded. She is very weak and is having trouble walking because of this. She denies having any fever or hemoptysis. She has had no lower extremity swelling today but did have lower extremity swelling recently. She is been compliant with her outpatient medications. She denies having any recent falls. She presented with her significant other. ROS: See above HPI for pertinent positives & negatives. A total of 10 systems reviewed and were otherwise negative. PAST MEDICAL HISTORY: See Below PAST SURGICAL HISTORY: See Below FAMILY HISTORY: See Below SOCIAL HISTORY: See Below HOME MEDICATIONS: See Below ALLERGIES: See Below VITALS: See Below PHYSICAL EXAMINATION: GENERAL: Patient is awake alert in no acute distress patient is resting comfortably and showing no signs of anxiety EYES: The conjunctivae are clear. The pupils are round and reactive. EARS, NOSE, MOUTH AND THROAT: The nose is without any evidence of any deformity. NECK: The neck is nontender and supple. RESPIRATORY: Diminished breath sounds are noted in the right lung field. There is mild conversational dyspnea. CARDIOVASCULAR: Tachycardic and regular heart sounds were noted auscultation. There is no definite murmur. GASTROINTESTINAL: The abdomen is soft. Abdomen is nontender. MUSCULOSKELETAL/EXTREMITIES: There is no evidence of gross deformity full range of motion is noted in the hips and shoulders. SKIN: There is no obvious evidence of any rash. There are no petechiae, pallor or cyanosis noted. NEUROLOGIC: Patient is awake alert and oriented x3 MEDICAL DECISION MAKING: The patient is a 62-year-old female who presented to the emergency department for an evaluation of dizziness upon standing. The patient was mildly hypotensive. She has a history of CHF as well as COPD. She has been using her fluid pills as usual. I discussed the patient's laboratory and radiographic studies with her. She was found to have a slight elevation in her troponin as well as an elevation in her creatinine compared to baseline. She was treated with a small fluid bolus while second troponin was run. The second troponin was elevated compared to the first. Given these findings I do feel the patient would be a better candidate for inpatient management. I discussed her condition with the on-call [facility] hospitalist group. They have agreed to evaluate the patient in the emergency department for further management and disposition. The patient's oxygen saturation was acceptable on her supplemental oxygen. She does wear supplemental oxygen at baseline. Triage Nursing notes reviewed. Prior medical records reviewed Vital Signs: reviewed and remarkable for no significant abnormalities Differential diagnosis: Infection, dehydration, metabolic abnormality, hypo/hyperglycemia, electrolyte disturbance, anemia, hypoxia, cardiac sources, intracerebral event, toxicologic, neurologic, as well as other pathologies. ER treatment provided: See below Diagnostics interpreted by me: ECG: EKG was obtained in the emergency department. My interpretation is sinus tachycardia at 115 bpm. There is no ectopy. LVH was noted by voltage criteria. Nonspecific ST depression with T wave abnormalities were noted especially in the low lateral leads. This was compared to the tracing from September 06, 2022. The ST depressions are new compared to the earlier tracing. Cardiac Monitoring: An order was placed for continuous cardiac monitoring. The monitor shows a rate of 74 bpm with sinus rhythm. Laboratory studies: As stated above and show below. Imaging studies: See below. Radiographic imaging was reviewed by myself Consultation(s): I discussed this case with Dr. Hernández who is on-call for the [facility] hospitalist group. ED COURSE: The patient was placed in observation status at 1327. The patient was placed in observation for elevated troponin and orthostatic dizziness. During the time in observation, the patient was frequently reassessed and received serial troponin measurements and IV fluid. On Final reassessment the patient was found to have an elevation in her troponin compared to the earlier finding and the patient will be evaluated by the hospitalist for inpatient management at this time. A total observation time of 2 hours. Past Med/Surg History Medical History Anxiety Arthritis Bilateral pleural effusion CAD (coronary artery disease) Cholecystitis Chronic back pain + neck Chronic dyspnea Depression Diastolic CHF Elevated troponin Emphysema/COPD Fibromyalgia GERD (gastroesophageal reflux disease) History of aortic valve disease s/p AVR (2005) History of nicotine dependence Hyperlipidemia Hypertension Ischemic stroke Remote hx per records (?11/2018) Mitral valve disease s/p MVR (2005) On home oxygen therapy 2L O2 HS + PRN Per patient, prescribed after hospital stay in which they noticed intermittent low O2 sats specifically nocturnal hypoxemia/hypoxia Osteoporosis Peripheral neuropathy Pulmonary hypertension Transient ischemic attack (TIA) 2005, 2019 Surgical History H/O: hysterectomy History of bronchoscopy History of colonoscopy History of esophagogastroduodenoscopy (EGD) History of heart valve replacement AVR (2005) History of lung biopsy Hx laparoscopic cholecystectomy (01/13/21) Laparoscopic Cholecystectomy Dr. Pulido 01-13-2021 S/P mitral valve replacement with bioprosthetic valve 2005 Family History Mother Slow to wake up after anesthesia Sister Family history of diabetes mellitus Father Stroke Other Coronary heart disease Denies family history of Ovarian cancer Prostate cancer Breast cancer Colorectal cancer Social History Smoking Status: Former smoker Tobacco Type: Cigarettes Age Started Using Tobacco: 18; packs per day: 0.5; Second Hand Exposure: Yes (FAMILY SMOKED); Do You Dip or Chew Tobacco: No; Hx Alcohol Use: No Hx Substance Use: No Preferred Language: [place] Communication Ability: Effective Hearing Ability: Normal City Supervisor Required: No Beliefs That Will Affect Care: None marital status: Current Living Situation: Significant Other current occupational status: unemployed and disabled How many Children do You have: 2 Feels Safe at Home: Yes Childhood Exposure to Second-Hand Smoke: Yes Diet: regular during the past year weight has: decreased > 10 lbs Dental Care, Regularly: No Physical Activity Frequency: 3-4 Times per Week Seatbelt Use: always Sunscreen Use: Yes Assistive Devices: Oxygen - Continuous Allergies Allergies Allergy/AdvReac Type Severity Reaction Status Date / Time aspirin Allergy Intermediate Hives Verified 01/07/23 15:55 hydrochlorothiazide Allergy Intermediate RASH/"Sick Verified 01/07/23 15:55 in stomach" trazodone AdvReac Severe Vomiting Verified 01/07/23 15:55 tramadol AdvReac Mild Nausea Verified 01/07/23 15:55 Home Meds Home Medications Medication Instructions Recorded Confirmed nitroglycerin 0.4 mg sublingual 0.4 mg sublingual UD PRN Chest Pain 11/09/18 0 01/07/23 tablet tiotropium bromide 18 mcg capsule 1 cap inhalation QAM PRN Shortness 12/21/18 0 01/07/23 with inhalation device (Spiriva Of Breath Or Wheezing with HandiHaler) albuterol sulfate 2.5 mg/3 mL 2.5 mg inhalation Q4H PRN SOB 01/17/19 01/07/23 (0.083 %) solution for nebulization albuterol sulfate 90 mcg/actuation 2 puffs inhalation QID PRN SOB 01/17/19 01/07/23 aerosol inhaler ipratropium bromide 0.02 % 1.25 ml inhalation .COMPLEX PRN SOB 01/17/19 01/07/23 solution for inhalation cholecalciferol (vitamin D3) 50 4,000 units PO QAM 05/21/19 01/07/23 mcg (2,000 unit) tablet (Vitamin D3) cyanocobalamin (vitamin B-12) 1,000 mcg PO QAM 05/21/19 01/07/23 1,000 mcg tablet mirtazapine 15 mg tablet 15 mg PO HS 01/07/23 01/07/23 Previous Rx's Medication Instructions Recorded Advair Diskus 250 mcg-50 mcg/dose 1 inh inhalation Q12H #60 ea 07/20/20 powder for inhalation (fluticasone propion-salmeterol) lisinopril 2.5 mg tablet 2.5 mg PO QAM #90 tabs 03/28/22 atorvastatin 40 mg tablet 40 mg PO QPM #90 tabs 04/15/22 clopidogrel 75 mg tablet 75 mg PO QPM #90 tabs 05/03/22 gabapentin 300 mg capsule 600 mg PO BID #360 caps 06/09/22 spironolactone 25 mg tablet 25 mg PO DAILY #90 tabs 06/27/22 furosemide 20 mg tablet 20 mg PO QAM PRN Fluid Retention 09/15/22 #90 tabs folic acid 1 mg tablet 1 mg PO QAM #90 tabs 11/24/22 lorazepam 0.5 mg tablet 0.5 mg PO HS #30 tabs 12/08/22 montelukast 10 mg tablet 10 mg PO QAM #90 tabs 12/08/22 pantoprazole 40 mg tablet,delayed 40 mg PO BID #90 tabs 12/12/22 release metoprolol succinate 25 mg 25 mg PO QAM #90 tabs 12/29/22 tablet,extended release 24 hr oxycodone 5 mg tablet See Rx Instructions PO Q4H PRN 01/04/23 pain #100 tabs peg 3350-[id number] [id number] See Rx Instructions PO .COMPLEX #2 01/05/23 178.7-7.3-0.5-1.12-0.9 gram oral mL soln (Suflave) Results & Data (ED) Vital Signs Vital Signs - 24 hr 01/07/23 13:21 01/07/23 13:21 01/07/23 13:21 Temperature 36.6 C 36.6 C Temperature Source Oral Oral Pulse Rate - Lying Pulse Rate - Sitting Pulse Rate - Standing Pulse Rate 87 Pulse Rate from SpO2 Sensor Respiratory Rate 15 15 Blood Pressure - Lying Blood Pressure - Sitting Blood Pressure- Standing Blood Pressure 115/85 Blood Pressure Mean 95 Pulse Oximetry 95 100 Oxygen Delivery Method Nasal Cannula Nasal Cannula Oxygen Flow Rate 2 4 Sepsis Recent Fever Within 48 Hours No Sepsis New/Unexplained Change in Mental Status No Sepsis Action Taken by Nursing No Action Required Oxygen Flow Rate - Titration 2 Pulse Oximetry Post Tiitration 95 01/07/23 13:44 01/07/23 14:00 01/07/23 13:20 Temperature Temperature Source Pulse Rate - Lying Pulse Rate - Sitting Pulse Rate - Standing Pulse Rate 116 H Pulse Rate from SpO2 Sensor Respiratory Rate Blood Pressure - Lying Blood Pressure - Sitting Blood Pressure- Standing Blood Pressure 115/85 Blood Pressure Mean 93 Pulse Oximetry 95 Oxygen Delivery Method Oxymask Oxygen Flow Rate 2 Sepsis Recent Fever Within 48 Hours Sepsis New/Unexplained Change in Mental Status Sepsis Action Taken by Nursing Oxygen Flow Rate - Titration Pulse Oximetry Post Tiitration 01/07/23 13:20 01/07/23 13:30 01/07/23 13:31 Temperature Temperature Source Pulse Rate - Lying Pulse Rate - Sitting Pulse Rate - Standing Pulse Rate 110 H 83 Pulse Rate from SpO2 Sensor 110 H 84 Respiratory Rate 12 24 Blood Pressure - Lying Blood Pressure - Sitting Blood Pressure- Standing Blood Pressure 105/63 Blood Pressure Mean 72 Pulse Oximetry 93 94 Oxygen Delivery Method Oxygen Flow Rate Sepsis Recent Fever Within 48 Hours Sepsis New/Unexplained Change in Mental Status Sepsis Action Taken by Nursing Oxygen Flow Rate - Titration Pulse Oximetry Post Tiitration 01/07/23 13:31 01/07/23 13:31 01/07/23 13:40 Temperature Temperature Source Pulse Rate - Lying Pulse Rate - Sitting Pulse Rate - Standing Pulse Rate 84 83 Pulse Rate from SpO2 Sensor 84 83 Respiratory Rate 21 19 Blood Pressure - Lying Blood Pressure - Sitting Blood Pressure- Standing Blood Pressure 105/63 Blood Pressure Mean 72 Pulse Oximetry 95 98 Oxygen Delivery Method Oxygen Flow Rate Sepsis Recent Fever Within 48 Hours Sepsis New/Unexplained Change in Mental Status Sepsis Action Taken by Nursing Oxygen Flow Rate - Titration Pulse Oximetry Post Tiitration 01/07/23 13:50 01/07/23 14:00 01/07/23 14:00 Temperature Temperature Source Pulse Rate - Lying Pulse Rate - Sitting Pulse Rate - Standing Pulse Rate 80 81 Pulse Rate from SpO2 Sensor 81 78 Respiratory Rate 22 15 Blood Pressure - Lying Blood Pressure - Sitting Blood Pressure- Standing Blood Pressure 108/58 L Blood Pressure Mean 69 Pulse Oximetry 95 98 Oxygen Delivery Method Oxygen Flow Rate Sepsis Recent Fever Within 48 Hours Sepsis New/Unexplained Change in Mental Status Sepsis Action Taken by Nursing Oxygen Flow Rate - Titration Pulse Oximetry Post Tiitration 01/07/23 14:10 01/07/23 14:20 01/07/23 14:30 Temperature Temperature Source Pulse Rate - Lying Pulse Rate - Sitting Pulse Rate - Standing Pulse Rate 76 74 Pulse Rate from SpO2 Sensor 76 80 Respiratory Rate 17 16 Blood Pressure - Lying Blood Pressure - Sitting Blood Pressure- Standing Blood Pressure 103/62 Blood Pressure Mean 69 Pulse Oximetry 99 96 Oxygen Delivery Method Oxygen Flow Rate Sepsis Recent Fever Within 48 Hours Sepsis New/Unexplained Change in Mental Status Sepsis Action Taken by Nursing Oxygen Flow Rate - Titration Pulse Oximetry Post Tiitration 01/07/23 14:30 01/07/23 14:40 01/07/23 14:51 Temperature Temperature Source Pulse Rate - Lying 71 Pulse Rate - Sitting 75 Pulse Rate - Standing 78 Pulse Rate 75 74 Pulse Rate from SpO2 Sensor 74 72 Respiratory Rate 20 20 Blood Pressure - Lying 103/62 Blood Pressure - Sitting 99/59 L Blood Pressure- Standing 104/62 Blood Pressure Blood Pressure Mean Pulse Oximetry 99 100 Oxygen Delivery Method Oxygen Flow Rate Sepsis Recent Fever Within 48 Hours Sepsis New/Unexplained Change in Mental Status Sepsis Action Taken by Nursing Oxygen Flow Rate - Titration Pulse Oximetry Post Tiitration Home Medications Current Medication List: was personally reviewed by me Laboratory Data Attestation: I reviewed the patient's lab results. 01/07/23 13:27 01/07/23 13:27 Lab Results 01/07/23 01/07/23 01/07/23 Range/Units 13:27 13:27 13:27 WBC 10.02 (4.8-10.8) K/ul RBC 5.38 (4.20-5.40) M/uL Hgb 15.1 (12.0-16.0) g/dl Hct 47.5 H (37.0-47.0) % MCV 88.3 (80.0-100.0) fL MCH 28.1 (25.0-34.0) pg MCHC 31.8 L (32.0-36.0) g/dL RDW Std Deviation 46.8 H (36.4-46.3) fL RDW Coeff of Claudette 14.6 H (11.5-14.5) % Plt Count 217 (130-400) K/uL MPV 10.7 (9.4-12.4) fL Immature Gran % (Auto) 0.6 % Neut % (Auto) 80.5 % Lymph % (Auto) 12.6 % Porter % (Auto) 5.7 % Eos % (Auto) 0.2 % Baso % (Auto) 0.4 % Neut # (Auto) 8.07 H (1.40-6.50) K/uL Lymph # (Auto) 1.26 (1.20-3.40) K/uL Porter # (Auto) 0.57 (0.11-0.59) K/uL Eos # (Auto) 0.02 (0.00-0.50) K/uL Baso # (Auto) 0.04 (0.00-0.20) K/uL Immature Gran # (Auto) 0.06 (0.01-0.20) K/uL PT 11.3 (9.0-12.0) Seconds INR 1.0 (0.9-1.1) APTT 25.0 (21.0-31.0) Seconds PTT Ratio 0.9 Sodium 139 (136-145) mmol/L Potassium 3.6 (3.5-5.1) mmol/L Chloride 96 L (98-107) mmol/L Carbon Dioxide 38 H (21-32) mmol/L Anion Gap 5 (3-11) BUN 11 (6-23) mg/dl Creatinine 1.26 H (0.6-1.2) mg/dl Est Cr Clr Drug Dosing 29.0 ml/min Est GFR ( Amer) 53.3 ml/min Est GFR (Non-Af Amer) 45.9 ml/min BUN/Creatinine Ratio 8.7 L (10-20) Glucose 88 (70-99(Fasting)) mg/dl Calcium 9.5 (8.6-10.3) mg/dl Magnesium 1.5 L (1.7-2.4) mg/dl Total Bilirubin 0.6 (0.2-1.0) mg/dl AST 23 (13-39) U/L ALT 16 (7-52) U/L Alkaline Phosphatase 118 H (34-104) U/L Total Creatine Kinase 22 L (26-192) U/L Troponin I High Sens 38.2 H (0-14) pg/ml B-Natriuretic Peptide (0-100) pg/ml Total Protein 7.0 (6.0-8.3) gm/dl Albumin 3.9 (3.4-5.0) gm/dl Globulin 3.1 (2.5-4.0) gm/dl Albumin/Globulin Ratio 1.3 (0.9-2) TSH (0.300-4.500) uIu/ml Urine Color Urine Appearance (Clear) Urine pH (4.5-7.5) Ur Specific [place] (1.000-1.030) Urine Protein (Negative) Urine Glucose (UA) (Negative) Urine Ketones (Negative) Urine Blood (Negative) Urine Nitrite (Negative) Urine Bilirubin (Negative) Urine Urobilinogen (Negative) Ur Leukocyte Esterase (Negative) 01/07/23 01/07/23 01/07/23 Range/Units 13:27 13:27 13:27 WBC (4.8-10.8) K/ul RBC (4.20-5.40) M/uL Hgb (12.0-16.0) g/dl Hct (37.0-47.0) % MCV (80.0-100.0) fL MCH (25.0-34.0) pg MCHC (32.0-36.0) g/dL RDW Std Deviation (36.4-46.3) fL RDW Coeff of Claudette (11.5-14.5) % Plt Count (130-400) K/uL MPV (9.4-12.4) fL Immature Gran % (Auto) % Neut % (Auto) % Lymph % (Auto) % Porter % (Auto) % Eos % (Auto) % Baso % (Auto) % Neut # (Auto) (1.40-6.50) K/uL Lymph # (Auto) (1.20-3.40) K/uL Porter # (Auto) (0.11-0.59) K/uL Eos # (Auto) (0.00-0.50) K/uL Baso # (Auto) (0.00-0.20) K/uL Immature Gran # (Auto) (0.01-0.20) K/uL PT (9.0-12.0) Seconds INR (0.9-1.1) APTT (21.0-31.0) Seconds PTT Ratio Sodium (136-145) mmol/L Potassium (3.5-5.1) mmol/L Chloride (98-107) mmol/L Carbon Dioxide (21-32) mmol/L Anion Gap (3-11) BUN (6-23) mg/dl Creatinine (0.6-1.2) mg/dl Est Cr Clr Drug Dosing ml/min Est GFR ( Amer) ml/min Est GFR (Non-Af Amer) ml/min BUN/Creatinine Ratio (10-20) Glucose (70-99(Fasting)) mg/dl Calcium (8.6-10.3) mg/dl Magnesium (1.7-2.4) mg/dl Total Bilirubin (0.2-1.0) mg/dl AST (13-39) U/L ALT (7-52) U/L Alkaline Phosphatase (34-104) U/L Total Creatine Kinase (26-192) U/L Troponin I High Sens (0-14) pg/ml B-Natriuretic Peptide 596 H (0-100) pg/ml Total Protein (6.0-8.3) gm/dl Albumin (3.4-5.0) gm/dl Globulin (2.5-4.0) gm/dl Albumin/Globulin Ratio (0.9-2) TSH 2.428 (0.300-4.500) uIu/ml Urine Color Yellow Urine Appearance Clear (Clear) Urine pH 6.5 (4.5-7.5) Ur Specific [place] 1.006 (1.000-1.030) Urine Protein Negative (Negative) Urine Glucose (UA) Negative (Negative) Urine Ketones Negative (Negative) Urine Blood Negative (Negative) Urine Nitrite Negative (Negative) Urine Bilirubin Negative (Negative) Urine Urobilinogen Negative (Negative) Ur Leukocyte Esterase Negative (Negative) 01/07/23 Range/Units 15:28 WBC (4.8-10.8) K/ul RBC (4.20-5.40) M/uL Hgb (12.0-16.0) g/dl Hct (37.0-47.0) % MCV (80.0-100.0) fL MCH (25.0-34.0) pg MCHC (32.0-36.0) g/dL RDW Std Deviation (36.4-46.3) fL RDW Coeff of Claudette (11.5-14.5) % Plt Count (130-400) K/uL MPV (9.4-12.4) fL Immature Gran % (Auto) % Neut % (Auto) % Lymph % (Auto) % Porter % (Auto) % Eos % (Auto) % Baso % (Auto) % Neut # (Auto) (1.40-6.50) K/uL Lymph # (Auto) (1.20-3.40) K/uL Porter # (Auto) (0.11-0.59) K/uL Eos # (Auto) (0.00-0.50) K/uL Baso # (Auto) (0.00-0.20) K/uL Immature Gran # (Auto) (0.01-0.20) K/uL PT (9.0-12.0) Seconds INR (0.9-1.1) APTT (21.0-31.0) Seconds PTT Ratio Sodium (136-145) mmol/L Potassium (3.5-5.1) mmol/L Chloride (98-107) mmol/L Carbon Dioxide (21-32) mmol/L Anion Gap (3-11) BUN (6-23) mg/dl Creatinine (0.6-1.2) mg/dl Est Cr Clr Drug Dosing ml/min Est GFR ( Amer) ml/min Est GFR (Non-Af Amer) ml/min BUN/Creatinine Ratio (10-20) Glucose (70-99(Fasting)) mg/dl Calcium (8.6-10.3) mg/dl Magnesium (1.7-2.4) mg/dl Total Bilirubin (0.2-1.0) mg/dl AST (13-39) U/L ALT (7-52) U/L Alkaline Phosphatase (34-104) U/L Total Creatine Kinase (26-192) U/L Troponin I High Sens 97.7 H* D (0-14) pg/ml B-Natriuretic Peptide (0-100) pg/ml Total Protein (6.0-8.3) gm/dl Albumin (3.4-5.0) gm/dl Globulin (2.5-4.0) gm/dl Albumin/Globulin Ratio (0.9-2) TSH (0.300-4.500) uIu/ml Urine Color Urine Appearance (Clear) Urine pH (4.5-7.5) Ur Specific [place] (1.000-1.030) Urine Protein (Negative) Urine Glucose (UA) (Negative) Urine Ketones (Negative) Urine Blood (Negative) Urine Nitrite (Negative) Urine Bilirubin (Negative) Urine Urobilinogen (Negative) Ur Leukocyte Esterase (Negative) Administered Medications Discontinued Medications Sodium Chloride (Nss) 250 mls @ 999 mls/hr IV .Q16M ONE Stop: 01/07/23 15:31 Last Infusion: 01/07/23 16:39 Dose: 0 mls/hr Documented By: Admin: 01/07/23 15:51 Dose: 999 mls/hr Documented By: SOFI Magnesium Sulfate/Dextrose (Magnesium Sulfate / D5w) 1 gm in 100 mls @ 100 mls/hr IV NOW STA Stop: 01/07/23 16:15 Last Admin: 01/07/23 15:51 Dose: 100 mls/hr Documented By: SOFI Imaging Data Attestation: I personally reviewed and interpreted this imaging study as follows: My Impression: 1 view chest x-ray was obtained in the emergency department. My interpretation is no free air or definite infiltrate, final report below. Radiologist's Impression: Chest X-Ray 01/07/23 13:40 SINGLE VIEW CHEST CLINICAL HISTORY: Generalized weakness. FINDINGS: An AP, portable, upright chest radiograph is compared to study dated 09/06/2022. The patient is status post midline sternotomy. The the heart is enlarged noting atherosclerotic calcification of the thoracic aorta. There is pulmonary vascular congestion. Enlargement of the central pulmonary arteries suggest pulmonary artery hypertension. Emphysema and chronic interstitial thickening is similar to previous. There is bibasilar scarring/atelectasis. Suture material projects over the right midlung. There are small pleural effusions, left larger than right. Foci of parenchymal scarring is seen throughout both lungs. No pneumothorax is seen. The skeletal structures are osteopenic. The bony thorax is grossly intact. IMPRESSION: 1. Cardiomegaly and emphysema with mild pulmonary vascular congestion. 2. Chronic left larger than right pleural effusions. ACT 112: Negative or not required by law. Electronically signed by: Mack Perez M.D. 01/07/2023 1:52 PM Discharge Plan Visit Data Chief Complaint: Dizziness Stated Complaint: DIZZINESS, WEAKNESS X2 DAYS ED Provider: Dejon Ariza Discharge Problem: Dizziness, Elevated troponin I level, BRITTNEY (acute kidney injury), Abnormal EKG Forms Stand Alone Forms: My [facility] Prescriptions Prescriptions: No Action Spiriva with HandiHaler 18 mcg capsule, w/inhalation device 1 cap INH QAM PRN (Reason: Shortness Of Breath Or Wheezing) cyanocobalamin (vitamin B-12) 1,000 mcg tablet 1,000 mcg PO QAM cholecalciferol (vitamin D3) [Vitamin D3] 2,000 unit tablet 4,000 units PO QAM fluticasone propion-salmeterol [Advair Diskus] 250-50 mcg/dose blister with device 1 inh inhalation Q12H Qty: 60 1RF lisinopril 2.5 mg tablet 2.5 mg PO QAM Qty: 90 3RF atorvastatin 40 mg tablet 40 mg PO QPM Qty: 90 3RF clopidogrel 75 mg tablet 75 mg PO QPM Qty: 90 3RF gabapentin 300 mg capsule 600 mg PO BID Qty: 360 3RF furosemide 20 mg tablet 20 mg PO QAM PRN (Reason: Fluid Retention) Qty: 90 3RF folic acid 1 mg tablet 1 mg PO QAM Qty: 90 3RF montelukast 10 mg tablet 10 mg PO QAM Qty: 90 3RF lorazepam 0.5 mg tablet 0.5 mg PO HS Qty: 30 0RF metoprolol succinate 25 mg tablet extended release 24 hr 25 mg PO QAM Qty: 90 3RF oxycodone 5 mg tablet See Patient Comments PO Q4H PRN (Reason: pain) Qty: 100 0RF Rx Instructions: Patient uses this medication, 5mg by mouth every 4 hours as needed for severe pain ongoing therapy ongoing therapy Barrington Joshi KINGA [id number] License# [id number] Suflave 178.7-7.3-0.5 gram recon soln See Rx Instructions PO .COMPLEX Qty: 2 0RF Rx Instructions: SCHEDULED TO TAKE 01/13/23 FOR COLONOSCOPY. orally; TAKE FIRST DOSE AT 6 PM AND SECOND DOSE 6 HOURS PRIOR TO PROCEDURE BIN: [id number] PCN: [id number] GROUP: [id number] spironolactone 25 mg tablet 25 mg PO DAILY Qty: 90 3RF pantoprazole 40 mg tablet,delayed release (DR/EC) 40 mg PO BID Qty: 90 4RF Rx Instructions: Take 1 tablet by mouth twice a day x 8 weeks, then reduce to 1 tablet daily. nitroglycerin 0.4 mg Tablet, Sublingual 0.4 mg sublingual UD PRN (Reason: Chest Pain) albuterol sulfate 2.5 mg /3 mL (0.083 %) solution for nebulization 2.5 mg INHALATION Q4H PRN (Reason: SOB) ipratropium bromide 0.02 % solution 1.25 ml INHALATION .COMPLEX PRN (Reason: SOB) Patient Comments: 1.25 mL INHALATION Please verify if patient is still using this neb treatment PRN; Rx Instructions: 1.25 mL INHALATION Please verify if patient is still using this neb treatment PRN; albuterol sulfate 90 mcg/actuation HFA aerosol inhaler 2 puffs INHALATION QID PRN (Reason: SOB) mirtazapine 15 mg tablet 15 mg PO HS Referrals Referrals: Barrington Joshi MD [Primary Care Provider] -
[2023-01-07 14:25] LABS: Partial Thromboplastin Ratio 0.9; Prothrombin Time 11.3 Seconds (9.0-12.0)
[2023-01-07 14:26] LABS: Albumin Level 3.9 gm/dl (3.4-5.0); Anion Gap 5 (3-11); Bilirubin,Total 0.6 mg/dl (0.2-1.0); Calcium 9.5 mg/dl (8.6-10.3); Carbon Dioxide 38 mmol/L (21-32); Chloride 96 mmol/L (98-107); Magnesium 1.5 mg/dl (1.7-2.4); Potassium 3.6 mmol/L (3.5-5.1); Sodium 139 mmol/L (136-145)
[2023-01-07 14:32] LABS: Alanine Aminotransferase 16 U/L (7-52); Albumin Globulin Ratio 1.3 (0.9-2); Alkaline Phosphatase 118 U/L (34-104); Aspartate Aminotransferase 23 U/L (13-39); BUN Creatinine Ratio 8.7 (10-20); Blood Urea Nitrogen 11 mg/dl (6-23); Creatine Kinase 22 U/L (26-192); Est GFR (African American) 53.3 ml/min; Est GFR (Non-African American) 45.9 ml/min; Globulin 3.1 gm/dl (2.5-4.0); Glucose 88 mg/dl (70-99(Fasting))
[2023-01-07 14:34] LABS: Troponin I High Sensitivity 38.2 pg/ml (0-14)
[2023-01-07 14:47] LABS: Appearance Urine Clear (Clear); Bilirubin Urine Negative (Negative); Blood Urine Negative (Negative); Color Urine Yellow; Glucose Urine UA Negative (Negative); Ketones Urine Negative (Negative); Leukocyte Esterase Urine Negative (Negative); Nitrite Urine Negative (Negative); Protein Urine Negative (Negative); Specific Gravity Urine 1.006 (1.000-1.030); Urobilinogen Urine Negative (Negative); pH Urine 6.5 (4.5-7.5)
[2023-01-07] MEDS ORDERED: SODIUM CHLORIDE 0.9% 250 ML IV ONE (15:16)
[2023-01-07] MEDS ORDERED: MAGNESIUM SULFATE / D5W 1 GM/100 ML BAG IV STA (15:16)
--- NOTE | 2023-01-07 17:27 | History & Physical Report ---
Date of Service January 07, 2023 Assessment & Plan (1) Dizziness: Plan: Possibly secondary to volume contraction. Patient with elevation of BUN and Cr from baseline, elevated H/H from baseline - on Gabapentin and Oxycodone, decreased clearance may be contributing to patient's symptoms. Do not strongly suspect infection at this time or acute exacerbation of CHF Hemodynamically stable at present -Admit to medical with telemetry -Check orthostatic VS -Trend troponin - Will hold diuretics -Decrease Gabapentin dose from 600mg po BID to 300mg po BID for now -Decrease Oxycodone from q4hr PRN to q8hr PRN -Check 2D echo -Mag repletion (2) Elevated troponin I level: Plan: Patient denies chest pain. Does have increasing troponin. Some renal dysfunction as well -Telemetry monitoring -Trend troponin -Check 2D echo (3) BRITTNEY (acute kidney injury): Plan: Elevation of BUN and Cr from baseline -Hold diuretics -Gentle IVF, LR at 80mL/hr x 1L -Repeat chemistry in AM -Holding/decreasing renal medications (4) Chronic combined systolic (congestive) and diastolic (congestive) heart failure: Plan: Appears to be compensated -Holding diuretics for now -suspect some degree of volume contraction -Continue Metoprolol (5) Hyperlipidemia: Plan: -Continue Atorvastatin (6) Emphysema/COPD: Plan: No SOB, cough or wheeze. -Continue Albuterol PRN -Continue Advair -Spiriva F/E/N - LR at 80mL/hr x 1L, Mg repletion, repeat BMP in AM, Heart healthy diet as tolerated Ppx - Heparin Code - Full Dispo - Admit to medical with telemetry History of Present Illness Chief Complaint: dizziness, near syncope Primary Care Provider: Barrington Joshi MD Jennifer Morrison is a 62yo female with history of CAD, diastolic CHF, COPD, GERD, HTN, HLP presenting from home with 2 days of episodic dizziness, near syncope. She states that she has episodes where her body will shake, she will develop generalized weakness and nearly pass out. She has not passed out as of yet. No falls but she is unsteady on her feet. She also reports that she has had increased edema of her hands and feet. Denies chest pain, cough, SOB. Denies fever, chills, urinary complaints. No weight gain She denies sick contacts, change in medications. She is compliant with her medications. In the ER she is afebrile, HD stable. Adequate oxygenation on her baseline 2L of O2 Increasing troponin 38.2 -> 97.7 Allergies Allergy/AdvReac Type Severity Reaction Status Date / Time aspirin Allergy Intermediate Hives Verified 01/07/23 15:55 hydrochlorothiazide Allergy Intermediate RASH/"Sick Verified 01/07/23 15:55 in stomach" trazodone AdvReac Severe Vomiting Verified 01/07/23 15:55 tramadol AdvReac Mild Nausea Verified 01/07/23 15:55 Home Medications Medication Instructions Recorded Confirmed Type nitroglycerin 0.4 mg sublingual 0.4 mg sublingual UD PRN Chest Pain 11/09/18 01/07/23 History tablet tiotropium bromide 18 mcg capsule 1 cap inhalation QAM PRN Shortness 12/21/18 01/07/23 History with inhalation device (Spiriva Of Breath Or Wheezing with HandiHaler) albuterol sulfate 2.5 mg/3 mL 2.5 mg inhalation Q4H PRN SOB 01/17/19 01/07/23 History (0.083 %) solution for nebulization albuterol sulfate 90 mcg/actuation 2 puffs inhalation QID PRN SOB 01/17/19 01/07/23 History aerosol inhaler ipratropium bromide 0.02 % 1.25 ml inhalation .COMPLEX PRN SOB 01/17/19 01/07/23 History solution for inhalation cholecalciferol (vitamin D3) 50 4,000 units PO QAM 05/21/19 01/07/23 History mcg (2,000 unit) tablet (Vitamin D3) cyanocobalamin (vitamin B-12) 1,000 mcg PO QAM 05/21/19 01/07/23 History 1,000 mcg tablet Advair Diskus 250 mcg-50 mcg/dose 1 inh inhalation Q12H #60 ea 07/20/20 01/07/23 Rx powder for inhalation (fluticasone propion-salmeterol) lisinopril 2.5 mg tablet 2.5 mg PO QAM #90 tabs 03/28/22 01/07/23 Rx atorvastatin 40 mg tablet 40 mg PO QPM #90 tabs 04/15/22 01/07/23 Rx clopidogrel 75 mg tablet 75 mg PO QPM #90 tabs 05/03/22 01/07/23 Rx gabapentin 300 mg capsule 600 mg PO BID #360 caps 06/09/22 01/07/23 Rx spironolactone 25 mg tablet 25 mg PO DAILY #90 tabs 06/27/22 01/07/23 Rx furosemide 20 mg tablet 20 mg PO QAM PRN Fluid Retention 09/15/22 01/07/23 Rx #90 tabs folic acid 1 mg tablet 1 mg PO QAM #90 tabs 11/24/22 01/07/23 Rx lorazepam 0.5 mg tablet 0.5 mg PO HS #30 tabs 12/08/22 01/07/23 Rx montelukast 10 mg tablet 10 mg PO QAM #90 tabs 12/08/22 01/07/23 Rx pantoprazole 40 mg tablet,delayed 40 mg PO BID #90 tabs 12/12/22 01/07/23 Rx release metoprolol succinate 25 mg 25 mg PO QAM #90 tabs 12/29/22 01/07/23 Rx tablet,extended release 24 hr oxycodone 5 mg tablet See Rx Instructions PO Q4H PRN 01/04/23 01/07/23 Rx pain #100 tabs peg 3350-sod sulf,[id number] See Rx Instructions PO .COMPLEX #2 01/05/23 01/07/23 Rx 178.7-7.3-0.5-1.12-0.9 gram oral mL soln (Suflave) mirtazapine 15 mg tablet 15 mg PO HS 01/07/23 01/07/23 History Past Med/Surg History Medical History Anxiety Arthritis Bilateral pleural effusion CAD (coronary artery disease) Cholecystitis Chronic back pain + neck Chronic dyspnea Depression Diastolic CHF Elevated troponin Emphysema/COPD Fibromyalgia GERD (gastroesophageal reflux disease) History of aortic valve disease s/p AVR (2005) History of nicotine dependence Hyperlipidemia Hypertension Ischemic stroke Remote hx per records (?11/2018) Mitral valve disease s/p MVR (2005) On home oxygen therapy 2L O2 HS + PRN Per patient, prescribed after hospital stay in which they noticed intermittent low O2 sats specifically nocturnal hypoxemia/hypoxia Osteoporosis Peripheral neuropathy Pulmonary hypertension Transient ischemic attack (TIA) 2005, 2019 Surgical History H/O: hysterectomy History of bronchoscopy History of colonoscopy History of esophagogastroduodenoscopy (EGD) History of heart valve replacement AVR (2005) History of lung biopsy Hx laparoscopic cholecystectomy (01/13/21) Laparoscopic Cholecystectomy Dr. Pulido 01-13-2021 S/P mitral valve replacement with bioprosthetic valve 2005 Family History Mother Slow to wake up after anesthesia Sister Family history of diabetes mellitus Father Stroke Other Coronary heart disease Denies family history of Ovarian cancer Prostate cancer Breast cancer Colorectal cancer Social History Smoking Status: Former smoker Tobacco Type: Cigarettes Age Started Using Tobacco: 18; packs per day: 0.5; Second Hand Exposure: Yes (FAMILY SMOKED); Do You Dip or Chew Tobacco: No; Hx Alcohol Use: No Hx Substance Use: No Preferred Language: Burmese Communication Ability: Effective Hearing Ability: Normal Corporate Receptionist Required: No Beliefs That Will Affect Care: None marital status: Current Living Situation: Significant Other current occupational status: unemployed and disabled How many Children do You have: 2 Feels Safe at Home: Yes Childhood Exposure to Second-Hand Smoke: Yes Diet: regular during the past year weight has: decreased > 10 lbs Dental Care, Regularly: No Physical Activity Frequency: 3-4 Times per Week Seatbelt Use: always Sunscreen Use: Yes Assistive Devices: Oxygen - Continuous Review of Systems Review of Systems: All systems reviewed & are unremarkable except as noted in HPI & below Physical Exam Physical Exam: General: patient resting comfortably, NAD, non-toxic in appearance, AA&O x 4 Skin: warm, dry, intact, no rashes or lesions HEENT: NC/AT, PERRL, EOMI, anicteric sclera, conjunctiva without injection, external ear normal to inspection and nontender, nares patent, moist mucus membranes, dentition intact, no oropharyngeal lesions, neck supple, trachea mi dline, no LAD, no thyromegaly, no JVD Heart: +S1/S2, regular, no m/r/g Lungs: equal air entry bilaterally, no rales/rhonchi/wheezes Abd: +BS, soft, NT/ND, no masses/organomegaly/ascites Ext: warm, 2+ pulses in UE/LE bilaterally, no clubbing/cyanosis or edema Neuro: nonfocal, patient AA&O x 4, speech intact, no facial droop, moving all extremities on command with equal strength 5/5 Results & Data Results & Data Vital Signs (Past 12 Hours) Vital Signs Temp Pulse Resp BP Pulse Ox O2 Del Method O2 Flow Rate 01/07/23 16:50 69 20 100 01/07/23 16:40 70 15 100 01/07/23 16:30 71 20 99 01/07/23 16:30 137/59 L 01/07/23 16:20 69 18 100 01/07/23 16:10 71 20 100 01/07/23 16:00 72 21 100 01/07/23 16:00 137/67 01/07/23 15:50 71 15 100 01/07/23 15:40 74 21 100 01/07/23 15:30 72 15 01/07/23 15:30 139/71 01/07/23 15:10 73 20 99 01/07/23 15:00 73 23 97 01/07/23 15:00 107/62 01/07/23 14:50 79 22 96 01/07/23 14:50 104/62 01/07/23 14:49 75 22 99 01/07/23 14:49 99/59 L 01/07/23 14:40 74 20 100 01/07/23 14:30 75 20 99 01/07/23 14:30 103/62 01/07/23 14:20 74 16 96 01/07/23 14:10 76 17 99 01/07/23 14:00 81 15 98 01/07/23 14:00 108/58 L 01/07/23 13:50 80 22 95 01/07/23 13:40 83 19 98 01/07/23 13:31 105/63 01/07/23 13:31 84 21 95 01/07/23 13:31 105/63 01/07/23 13:30 83 24 94 01/07/23 13:20 110 H 12 93 01/07/23 13:20 115/85 01/07/23 14:00 95 Oxymask 2 01/07/23 13:44 116 H 01/07/23 13:21 36.6 C 15 01/07/23 13:21 100 Nasal Cannula 4 01/07/23 13:21 36.6 C 87 15 115/85 95 Nasal Cannula 2 Laboratory Results Laboratory Results WBC 10.02 K/ul (4.8-10.8) 01/07/23 13:27 RBC 5.38 M/uL (4.20-5.40) 01/07/23 13:27 Hgb 15.1 g/dl (12.0-16.0) 01/07/23 13:27 Hct 47.5 % (37.0-47.0) H 01/07/23 13:27 MCV 88.3 fL (80.0-100.0) 01/07/23 13:27 MCH 28.1 pg (25.0-34.0) 01/07/23 13:27 MCHC 31.8 g/dL (32.0-36.0) L 01/07/23 13:27 RDW Std Deviation 46.8 fL (36.4-46.3) H 01/07/23 13:27 RDW Coeff of Claudette 14.6 % (11.5-14.5) H 01/07/23 13:27 Plt Count 217 K/uL (130-400) 01/07/23 13:27 MPV 10.7 fL (9.4-12.4) 01/07/23 13:27 Immature Gran % (Auto) 0.6 % 01/07/23 13:27 Neut % (Auto) 80.5 % 01/07/23 13:27 Lymph % (Auto) 12.6 % 01/07/23 13:27 Mcintosh % (Auto) 5.7 % 01/07/23 13:27 Eos % (Auto) 0.2 % 01/07/23 13:27 Baso % (Auto) 0.4 % 01/07/23 13:27 Neut # (Auto) 8.07 K/uL (1.40-6.50) H 01/07/23 13:27 Lymph # (Auto) 1.26 K/uL (1.20-3.40) 01/07/23 13:27 Mcintosh # (Auto) 0.57 K/uL (0.11-0.59) 01/07/23 13:27 Eos # (Auto) 0.02 K/uL (0.00-0.50) 01/07/23 13:27 Baso # (Auto) 0.04 K/uL (0.00-0.20) 01/07/23 13:27 Immature Gran # (Auto) 0.06 K/uL (0.01-0.20) 01/07/23 13:27 PT 11.3 Seconds (9.0-12.0) 01/07/23 13:27 INR 1.0 (0.9-1.1) 01/07/23 13:27 APTT 25.0 Seconds (21.0-31.0) 01/07/23 13:27 PTT Ratio 0.9 01/07/23 13:27 Sodium 139 mmol/L (136-145) 01/07/23 13:27 Potassium 3.6 mmol/L (3.5-5.1) 01/07/23 13:27 Chloride 96 mmol/L (98-107) L 01/07/23 13:27 Carbon Dioxide 38 mmol/L (21-32) H 01/07/23 13:27 Anion Gap 5 (3-11) 01/07/23 13:27 BUN 11 mg/dl (6-23) 01/07/23 13:27 Creatinine 1.26 mg/dl (0.6-1.2) H 01/07/23 13:27 Est Cr Clr Drug Dosing 29.0 ml/min 01/07/23 13:27 Est GFR ( Amer) 53.3 ml/min 01/07/23 13:27 Est GFR (Non-Af Amer) 45.9 ml/min 01/07/23 13:27 BUN/Creatinine Ratio 8.7 (10-20) L 01/07/23 13:27 Glucose 88 mg/dl (70-99(Fasting)) 01/07/23 13:27 Calcium 9.5 mg/dl (8.6-10.3) 01/07/23 13:27 Magnesium 1.5 mg/dl (1.7-2.4) L 01/07/23 13:27 Total Bilirubin 0.6 mg/dl (0.2-1.0) 01/07/23 13:27 AST 23 U/L (13-39) 01/07/23 13:27 ALT 16 U/L (7-52) 01/07/23 13:27 Alkaline Phosphatase 118 U/L (34-104) H 01/07/23 13:27 Total Creatine Kinase 22 U/L (26-192) L 01/07/23 13:27 Troponin I High Sens 97.7 pg/ml (0-14) H* D 01/07/23 15:28 B-Natriuretic Peptide 596 pg/ml (0-100) H 01/07/23 13:27 Total Protein 7.0 gm/dl (6.0-8.3) 01/07/23 13:27 Albumin 3.9 gm/dl (3.4-5.0) 01/07/23 13:27 Globulin 3.1 gm/dl (2.5-4.0) 01/07/23 13:27 Albumin/Globulin Ratio 1.3 (0.9-2) 01/07/23 13:27 TSH 2.428 uIu/ml (0.300-4.500) 01/07/23 13:27 Urine Color Yellow 01/07/23 13:27 Urine Appearance Clear (Clear) 01/07/23 13:27 Urine pH 6.5 (4.5-7.5) 01/07/23 13:27 Ur Specific Lambert 1.006 (1.000-1.030) 01/07/23 13:27 Urine Protein Negative (Negative) 01/07/23 13:27 Urine Glucose (UA) Negative (Negative) 01/07/23 13:27 Urine Ketones Negative (Negative) 01/07/23 13:27 Urine Blood Negative (Negative) 01/07/23 13:27 Urine Nitrite Negative (Negative) 01/07/23 13:27 Urine Bilirubin Negative (Negative) 01/07/23 13:27 Urine Urobilinogen Negative (Negative) 01/07/23 13:27 Ur Leukocyte Esterase Negative (Negative) 01/07/23 13:27 Impressions Chest X-Ray 01/07/23 13:40 SINGLE VIEW CHEST CLINICAL HISTORY: Generalized weakness. FINDINGS: An AP, portable, upright chest radiograph is compared to study dated 09/06/2022. The patient is status post midline sternotomy. The the heart is enlarged noting atherosclerotic calcification of the thoracic aorta. There is pulmonary vascular congestion. Enlargement of the central pulmonary arteries suggest pulmonary artery hypertension. Emphysema and chronic interstitial thickening is similar to previous. There is bibasilar scarring/atelectasis. Suture material projects over the right midlung. There are small pleural effusions, left larger than right. Foci of parenchymal scarring is seen throughout both lungs. No pneumothorax is seen. The skeletal structures are osteopenic. The bony thorax is grossly intact. IMPRESSION: 1. Cardiomegaly and emphysema with mild pulmonary vascular congestion. 2. Chronic left larger than right pleural effusions. ACT 112: Negative or not required by law. Electronically signed by: Mack Perez M.D. 01/07/2023 1:52 PM Code Status & VTE Plan VTE Prophylaxis Plan VTE Prophylaxis will be ordered: Yes PG Care Time/CCT Total # of Minutes Spent Total Time Spent with Patient: Total time spent is greater than 50% in coordination of care (as documented) at patient's floor/unit and/or counseling patient: Coding Level of Care Code 33718 INT INP/OBS CARE 3/75MIN Diagnoses Dizziness R42 Elevated troponin I level R77.8 BRITTNEY (acute kidney injury) N17.9 Chronic combined systolic (congestive) and diastolic (congestive) heart failure I50.42 Hyperlipidemia E78.5 Emphysema/COPD J43.9
[2023-01-07] MEDS ORDERED: ALBUTEROL 0.083% NEBU SOLN 3 ML VIAL INH PRN (20:09)
[2023-01-07] MEDS ORDERED: ONDANSETRON INJ 2 MG/ML 2 ML VIAL IV PRN (20:09)
[2023-01-07] MEDS ORDERED: ACETAMINOPHEN 325 MG TAB PO PRN (20:09)
[2023-01-07] MEDS ORDERED: MAGNESIUM SULFATE / D5W 1 GM/100 ML BAG IV ONE (20:09)
[2023-01-07] MEDS ORDERED: LACTATED RINGER'S 1,000 ML IV SCH (20:09)
[2023-01-07] MEDS ORDERED: UMECLIDINIUM BROMIDE 62.5MCG/BLISTER 7 PUFFS/INHALER INH PRN (20:18)
[2023-01-07] MEDS: LORazepam 0.5 MG TAB PO SCH (21:27)
[2023-01-07] MEDS: GABAPENTIN 300 MG CAP PO SCH (21:27)
[2023-01-07] MEDS: PANTOprazole 40 MG TAB PO SCH (21:27)
[2023-01-07] MEDS: ATORVASTATIN 40 MG TAB PO SCH (21:27)
[2023-01-07] MEDS: oxyCODONE HCL IR 5 MG TAB (IMMEDIATE RELEASE) PO PRN (21:27)
[2023-01-07] MEDS: MIRTAZAPINE TAB 15 MG TAB PO SCH (21:27)
[2023-01-07] MEDS: HEPARIN SOD 5,000 UNIT/0.5 ML VIAL SQ SCH (21:28)
[2023-01-07] MEDS: CLOPIDOGREL BISULFATE 75 MG TAB PO SCH (21:28)
[2023-01-08 03:42] LABS: Hematocrit (blood only) 38.6 % (37.0-47.0); Hemoglobin 12.7 g/dl (12.0-16.0); Mean Corpuscular Hemoglobin 28.5 pg (25.0-34.0); Mean Corpuscular Hgb Conc 32.9 g/dL (32.0-36.0); Mean Corpuscular Volume 86.5 fL (80.0-100.0); Mean Platelet Volume 10.2 fL (9.4-12.4); Platelet Count 160 K/uL (130-400); RDW Coefficient of Variation 14.4 % (11.5-14.5); RDW Standard Deviation 45.5 fL (36.4-46.3); Red Blood Count 4.46 M/uL (4.20-5.40); White Blood Count 6.52 K/ul (4.8-10.8)
[2023-01-08 04:16] LABS: BUN Creatinine Ratio 12.1 (10-20); Calcium 8.5 mg/dl (8.6-10.3); Creatinine Clr Calc Pharmacy 38.6 ml/min; Est GFR (African American) 78.9 ml/min; Est GFR (Non-African American) 68.1 ml/min; Potassium 3.4 mmol/L (3.5-5.1)
[2023-01-08] MEDS: POTASSIUM CHLORIDE CRTAB 20 MEQ TABCR PO SCH ×2 (08:33→20:22)
[2023-01-08] MEDS: FUROSEMIDE 40 MG/4 ML VIAL IV SCH ×2 (08:33→16:56)
[2023-01-08] MEDS: FLUTICASONE/VILANTEROL 200/25MCG 14 PUFFS/INHALER INH SCH (08:34)
[2023-01-08] MEDS: MONTELUKAST SODIUM 10 MG TABLET PO SCH (08:34)
[2023-01-08] MEDS: PANTOprazole 40 MG TAB PO SCH ×2 (08:35→20:22)
[2023-01-08] MEDS: FOLIC ACID 1 MG TAB PO SCH (08:35)
[2023-01-08] MEDS: METOPROLOL SUCC 25MG EXT REL TAB PO SCH (08:35)
[2023-01-08] MEDS: HEPARIN SOD 5,000 UNIT/0.5 ML VIAL SQ SCH ×2 (08:35→20:24)
[2023-01-08] MEDS: GABAPENTIN 300 MG CAP PO SCH ×2 (08:36→20:23)
[2023-01-08] MEDS: oxyCODONE HCL IR 5 MG TAB (IMMEDIATE RELEASE) PO PRN ×4 (08:50→23:01)
--- NOTE | 2023-01-08 09:15 | Electrocardiogram Report ---
Test Reason : Blood Pressure : / mmHG Vent. Rate : 115 BPM Atrial Rate : 115 BPM P-R Int : 152 ms QRS Dur : 088 ms QT Int : 350 ms P-R-T Axes : 060 103 -40 degrees QTc Int : 484 ms Suspect arm lead reversal, interpretation assumes no reversal Sinus tachycardia Rightward axis Left ventricular hypertrophy with repolarization abnormality Abnormal ECG When compared with ECG of 06-SEP-2022 10:25, ST now depressed in Inferior leads ST now depressed in Lateral leads Inverted T waves have replaced nonspecific T wave abnormality in Inferior leads T wave inversion no longer evident in Anterior leads T wave inversion now evident in Lateral leads Confirmed by Dejon Aquino ([id number]) on 01/08/2023 9:15:20 AM Referred By: Confirmed By:Dejon Aquino
[2023-01-08] MEDS: SPIRONOLACTONE 25 MG TAB PO SCH (09:28)
--- NOTE | 2023-01-08 11:45 | Hospitalist Progress Note ---
Date of Service January 08, 2023 Assessment & Plan (1) Acute on chronic diastolic CHF (congestive heart failure): Plan: Telemetry. Lasix diuresis. We will consult cardiology tomorrow. Repeat cardiac echo is pending. (2) Acute respiratory failure with hypoxia: Plan: Supplemental oxygen to maintain saturation greater than 90%. Wean off as tolerated. Treat underlying CHF exacerbation (3) Hypokalemia: Plan: Oral replacement. Serial labs (4) Elevated troponin I level: Plan: Suspect supply/demand mismatch. No evidence of acute coronary syndrome at this time . EKG is abnormal at baseline due to LVH with repolarization changes (5) Hyperlipidemia: Plan: Stable. Continue Atorvastatin (6) Emphysema/COPD: Plan: Stable. Continue current medical management Plan Hopeful discharge to home in 2 or 3 days Admission and Anticipated Discharge Date Admission Date: January 07, 2023 Subjective Alert and oriented. This appears to be an acute exacerbation of her underlying congestive heart failure. She is mildly hypoxic and on oxygen per nasal cannula. We will consult cardiology tomorrow. IV Lasix ordered. IV fluids discontinued. We will repeat portable chest x-ray tomorrow, January 09. Oral potassium replacement ordered. Review of Systems Review of Systems: Constitutional-no fever or chills ENT-no blurred vision, no double vision, no epistaxis, no sore throat Respiratory-no cough, no wheezing. Short of breath with minimal exertion Cardiac-no palpitations, no chest pain, no syncope GI-no nausea, vomiting, diarrhea, melena, hematochezia -no urinary retention, no urinary incontinence, no dysuria, no hematuria Musculoskeletal-no joint pain, no muscle tenderness Skin-no bruising, no rashes, no pruritus Neuro-no isolated weakness, no paresthesia, no weakness Psych-no depression, no anxiety Physical Exam Physical Exam: General-alert and oriented x3, no fevers, no chills. Frail and cachectic appearing HEENT-head atraumatic and normocephalic, pupils equal and reactive to light, extraocular muscles intact Neck-no lymphadenopathy or thyromegaly, trachea midline Chest-bibasilar inspiratory rales. No wheezing. No rhonchi Cardiac-regular rate and rhythm, normal S1 and S2 Abdomen-normal bowel sounds, nontender, no hepatosplenomegaly Extremities-no cyanosis, clubbing, or edema Neuro-cranial nerves II through XII intact, motor and sensory function within normal limits, strength symmetrical, no focal deficits Psych-normal affect, normal mood Results & Data Results & Data Vital Signs (Past 12 Hours) Vital Signs Temp Pulse Pulse Resp BP Pulse Ox O2 Del Method 01/08/23 07:53 Nasal Cannula 01/08/23 07:45 96 Nasal Cannula 01/08/23 07:45 16 100 Nasal Cannula 01/08/23 07:44 36.8 C 70 16 113/64 32 L Room Air 01/08/23 07:09 74 01/08/23 04:08 36.4 C L 75 18 143/69 H 94 Nasal Cannula O2 Flow Rate 01/08/23 07:53 3 01/08/23 07:45 3 01/08/23 07:45 6 01/08/23 07:44 01/08/23 07:09 01/08/23 04:08 2 Laboratory Results 01/08/23 03:22 01/08/23 03:22 PG Care Time/CCT Total # of Minutes Spent Total Time Spent with Patient: Total time spent is greater than 50% in coordination of care (as documented) at patient's floor/unit and/or counseling patient: Coding Level of Care Code 62380 SUB INP/OBS CARE 3/50MIN Diagnoses Acute on chronic diastolic CHF (congestive heart failure) I50.33 Acute respiratory failure with hypoxia J96.01 Hypokalemia E87.6 Elevated troponin I level R77.8 Hyperlipidemia E78.5 Emphysema/COPD J43.9
--- NOTE | 2023-01-08 12:26 | XCELERA ---
[id number]___[id number]
[2023-01-08] MEDS: ATORVASTATIN 40 MG TAB PO SCH (20:22)
[2023-01-08] MEDS: MIRTAZAPINE TAB 15 MG TAB PO SCH (20:23)
[2023-01-08] MEDS: CLOPIDOGREL BISULFATE 75 MG TAB PO SCH (20:23)
[2023-01-08] MEDS: LORazepam 0.5 MG TAB PO SCH (20:28)
--- NOTE | 2023-01-09 07:54 | XRay Report ---
XR chest 1V portable HISTORY: Congestive heart failure. Shortness of breath. COMPARISON: Chest 01/07/2023. FINDINGS: No pneumothorax. Trace bilateral pleural effusions and mild interstitial pulmonary edema sears ve improved. Left basilar densities persist. No new focal lung consolidations. The heart is borderlin e enlarged. There are poststernotomy changes. Emphysema again noted. IMPRESSION: 1. Interval improvement in the mild interstitial pulmonary edema and small bilateral pleural effusion s. 2. Left basilar densities persist. 3. Emphysema. ACT 112: Negative or not required by law. Electronically signed by: Amandeep Urrutia M.D. 01/09/2023 7:53 AM
[2023-01-09 08:05] LABS: BUN Creatinine Ratio 13.3 (10-20); Creatinine Clr Calc Pharmacy 35.9 ml/min; Est GFR (African American) 72.2 ml/min; Est GFR (Non-African American) 62.3 ml/min; Potassium 3.8 mmol/L (3.5-5.1)
[2023-01-09] MEDS: FLUTICASONE/VILANTEROL 200/25MCG 14 PUFFS/INHALER INH SCH (08:41)
[2023-01-09] MEDS: METOPROLOL SUCC 25MG EXT REL TAB PO SCH (08:42)
[2023-01-09] MEDS: PANTOprazole 40 MG TAB PO SCH (08:42)
[2023-01-09] MEDS: SPIRONOLACTONE 25 MG TAB PO SCH (08:42)
[2023-01-09] MEDS: FOLIC ACID 1 MG TAB PO SCH (08:42)
[2023-01-09] MEDS: GABAPENTIN 300 MG CAP PO SCH (08:42)
[2023-01-09] MEDS: MONTELUKAST SODIUM 10 MG TABLET PO SCH (08:42)
[2023-01-09] MEDS: HEPARIN SOD 5,000 UNIT/0.5 ML VIAL SQ SCH (08:43)
[2023-01-09] MEDS: oxyCODONE HCL IR 5 MG TAB (IMMEDIATE RELEASE) PO PRN ×2 (08:48→13:11)
[2023-01-09] MEDS: FUROSEMIDE 40 MG/4 ML VIAL IV SCH (08:55)
[2023-01-09] MEDS: POTASSIUM CHLORIDE CRTAB 20 MEQ TABCR PO SCH (08:55)
--- NOTE | 2023-01-09 11:50 | Discharge Summary ---
Date of Service January 09, 2023 Admission HPI Per Admitting Provider Jennifer Morrison is a 62yo female with history of CAD, diastolic CHF, COPD, GERD, HTN, HLP presenting from home with 2 days of episodic dizziness, near syncope. She states that she has episodes where her body will shake, she will develop generalized weakness and nearly pass out. She has not passed out as of yet. No falls but she is unsteady on her feet. She also reports that she has had increased edema of her hands and feet. Denies chest pain, cough, SOB. Denies fever, chills, urinary complaints. No weight gain She denies sick contacts, change in medications. She is compliant with her medications. In the ER she is afebrile, HD stable. Adequate oxygenation on her baseline 2L of O2 Increasing troponin 38.2 -> 97.7 Principal Diagnosis Acute on chronic diastolic CHF, acute on chronic hypoxic respiratory failure, hypokalemia, hypomagnesemia, elevated troponin without acute coronary syndrome Discharge Exam General-alert and oriented x3, no fevers, no chills. Frail and cachectic appearing HEENT-head atraumatic and normocephalic, pupils equal and reactive to light, extraocular muscles intact Neck-no lymphadenopathy or thyromegaly, trachea midline Chest-diminished breath sounds bilaterally. No rales, wheezing, rhonchi Cardiac-regular rate and rhythm, normal S1 and S2 Abdomen-normal bowel sounds, nontender, no hepatosplenomegaly Extremities-no cyanosis, clubbing, or edema Neuro-cranial nerves II through XII intact, motor and sensory function within normal limits, strength symmetrical, no focal deficits Psych-normal affect, normal mood Discharge Data Allergies Allergy/AdvReac Type Severity Reaction Status Date / Time aspirin Allergy Intermediate Hives Verified 01/07/23 15:55 hydrochlorothiazide Allergy Intermediate RASH/"Sick Verified 01/07/23 15:55 in stomach" trazodone AdvReac Severe Vomiting Verified 01/07/23 15:55 tramadol AdvReac Mild Nausea Verified 01/07/23 15:55 Consultations 01/07/23 16:49 ED Decision to Admit Stat Hospital Course (1) Acute on chronic diastolic CHF (congestive heart failure): Resolved with IV Lasix diuresis. She is back to her baseline. We will increase her as needed Lasix to daily Lasix at discharge. Cardiac echo report noted (2) Acute respiratory failure with hypoxia: Supplemental oxygen to maintain saturation greater than 90%. She states she uses oxygen at home. Treat underlying CHF exacerbation (3) Hypokalemia: Corrected with oral replacement. Serial labs (4) Elevated troponin I level: Suspect supply/demand mismatch. No evidence of acute coronary syndrome at this time . EKG is abnormal at baseline due to LVH with repolarization changes (5) Hyperlipidemia: Stable. Continue Atorvastatin (6) Emphysema/COPD: Stable. Continue current medical management Plan Home today, January 09 Total Time Total Time Spent Total Time Spent (In Minutes): 45 minutes Discharge Plan Discharge Items Patient Disposition: Home - Self-Care Reason For Visit: DIZZINESS, NEAR SYNCOPE Discharge Diagnosis: Acute on chronic diastolic CHF, hypokalemia, hypomagnesemia, acute on chronic hypoxic respiratory failure, elevated troponin without acute coronary syndrome Activity: Resume your previous activity Non-emergency contact: Primary Care Provider and Entry Examiner Call non-emergency contact if: you have any medication questions and your symptoms worsen Follow-up/Referrals: Barrington Joshi MD [Primary Care Provider] - Diet: Regular and Heart Healthy Addtl Attending Provider Instructions: Take Lasix daily to prevent fluid buildup Pending Studies at Discharge: No Stand-Alone Forms: My [facility] [employer], Smoking Cessation Medications and DC Order Prescriptions: New furosemide [Lasix] 20 mg tablet 20 mg PO DAILY Qty: 30 0RF potassium chloride 10 mEq capsule, extended release 10 meq PO DAILY Qty: 30 0RF Continued Spiriva with HandiHaler 18 mcg capsule, w/inhalation device 1 cap INH QAM PRN (Reason: Shortness Of Breath Or Wheezing) cyanocobalamin (vitamin B-12) 1,000 mcg tablet 1,000 mcg PO QAM cholecalciferol (vitamin D3) [Vitamin D3] 2,000 unit tablet 4,000 units PO QAM fluticasone propion-salmeterol [Advair Diskus] 250-50 mcg/dose blister with device 1 inh inhalation Q12H Qty: 60 1RF lisinopril 2.5 mg tablet 2.5 mg PO QAM Qty: 90 3RF atorvastatin 40 mg tablet 40 mg PO QPM Qty: 90 3RF clopidogrel 75 mg tablet 75 mg PO QPM Qty: 90 3RF gabapentin 300 mg capsule 600 mg PO BID Qty: 360 3RF folic acid 1 mg tablet 1 mg PO QAM Qty: 90 3RF montelukast 10 mg tablet 10 mg PO QAM Qty: 90 3RF lorazepam 0.5 mg tablet 0.5 mg PO HS Qty: 30 0RF metoprolol succinate 25 mg tablet extended release 24 hr 25 mg PO QAM Qty: 90 3RF oxycodone 5 mg tablet See Patient Comments PO Q4H PRN (Reason: pain) Qty: 100 0RF Rx Instructions: Patient uses this medication, 5mg by mouth every 4 hours as needed for severe pain ongoing therapy ongoing therapy Barrington DONATO [id number] License# [id number] Suflave 178.7-7.3-0.5 gram recon soln See Rx Instructions PO .COMPLEX Qty: 2 0RF Rx Instructions: SCHEDULED TO TAKE 01/13/23 FOR COLONOSCOPY. orally; TAKE FIRST DOSE AT 6 PM AND SECOND DOSE 6 HOURS PRIOR TO PROCEDURE BIN: [id number] PCN: [id number] GROUP: [id number] spironolactone 25 mg tablet 25 mg PO DAILY Qty: 90 3RF pantoprazole 40 mg tablet,delayed release (DR/EC) 40 mg PO BID Qty: 90 4RF Rx Instructions: Take 1 tablet by mouth twice a day x 8 weeks, then reduce to 1 tablet daily. nitroglycerin 0.4 mg Tablet, Sublingual 0.4 mg sublingual UD PRN (Reason: Chest Pain) albuterol sulfate 2.5 mg /3 mL (0.083 %) solution for nebulization 2.5 mg INHALATION Q4H PRN (Reason: SOB) ipratropium bromide 0.02 % solution 1.25 ml INHALATION .COMPLEX PRN (Reason: SOB) Patient Comments: 1.25 mL INHALATION Please verify if patient is still using this neb treatment PRN; Rx Instructions: 1.25 mL INHALATION Please verify if patient is still using this neb treatment PRN; albuterol sulfate 90 mcg/actuation HFA aerosol inhaler 2 puffs INHALATION QID PRN (Reason: SOB) mirtazapine 15 mg tablet 15 mg PO HS Discontinued furosemide 20 mg tablet 20 mg PO QAM PRN (Reason: Fluid Retention) Qty: 90 3RF Discharge Orders: Discharge Order (Routine); Ordered 01/09/23 Ordered By: Fernando Chu Admission Data Admit Date/Time: 01/07/23 17:27 Attending Provider: Fernando Chu Admit Provider: Becky Sharp Primary Care Provider: Barrington Joshi Other Providers: Becky Sharp Coding Level of Care Code 36829 INP/OBS DISCH >30 MIN Diagnoses Acute on chronic diastolic CHF (congestive heart failure) I50.33 Acute respiratory failure with hypoxia J96.01 Hypokalemia E87.6 Elevated troponin I level R77.8 Hyperlipidemia E78.5 Emphysema/COPD J43.9
== END 2023-01-09 13:41 | disposition home or self-care (01) ==
LOC: ED 13:07 → INTOOBSV 17:27 → EDINP 17:27 → SUATTDRO 17:27 → 2N 19:47

== ENCOUNTER 2023-01-26 13:07 | Inpatient (IN) ==
--- NOTE | 2023-01-26 13:19 | ED Triage Note ---
Date of Service January 26, 2023 History of Present Illness This patient was briefly evaluated while in triage. An abbreviated physical exam was performed. This patient is a 62-year-old Female who presents to the ED for evaluation of no fluid intake x 2-3 days. States she does not feel thirsty. Notes pain in neck area. Started yesterday. Hard to walk or move. No hx of diabetes. Think dehydrated again. Current pain 10/10. Physical Exam GENERAL: 62 year old female. In no acute distress. SKIN: No lesions or rashes. HEART: Regular rate and rhythm. LUNGS: Mild wheezing noted. NEURO: Alert and oriented. No deficits. MUSCULOSKELETAL: No deformities to inspection of the extremities. PSYCH: Patient is pleasant and answers all questions appropriately. Initial orders for labs and / or imaging were placed and patient was placed in the waiting area until a bed is available. Please see further documentation for the full ED course.
[2023-01-26] MEDS ORDERED: SODIUM CHLORIDE 0.9% 500 ML IV ONE ×3 (14:08→14:35)
--- NOTE | 2023-01-26 14:11 | Emergency Department Note ---
Impression & Plan Pneumonia, BRITTNEY (acute kidney injury), Acute dehydration, Non-ST elevation MT (NSTEMI), Hypomagnesemia ED Provider Note NAME: JERARDO MONTES AGE: 62 SEX: F : 1960 ARRIVES VIA: Walk-In INFORMANT: Patient, the patient's significant other ED PROVIDER(S): Dejon Ariza DO CHIEF COMPLAINT: Weakness HPI: The patient is a 62-year-old female who presented to the emergency department for generalized weakness and decreased p.o. intake. The patient has had similar symptoms in the past. The patient does not eat or drink. She denies having any headaches or recent falls. She denies having any nausea or vomiting. The patient's had no GI bleeding. The patient was admitted to our facility 2 weeks ago for similar complaints. The significant other noted she was not eating or drinking over the course of the last 2 days. She came to the emergency department for further evaluation. ROS: See above HPI for pertinent positives & negatives. A total of 10 systems reviewed and were otherwise negative. PAST MEDICAL HISTORY: See Below PAST SURGICAL HISTORY: See Below FAMILY HISTORY: See Below SOCIAL HISTORY: See Below HOME MEDICATIONS: See Below ALLERGIES: See Below VITALS: See Below PHYSICAL EXAMINATION: GENERAL: The patient is awake and answers verbal commands. She appears very listless. EYES: The conjunctivae are clear. The pupils are round and reactive. EARS, NOSE, MOUTH AND THROAT: The nose is without any evidence of any deformity. Mucous membranes are dry. NECK: The neck is nontender and supple. RESPIRATORY: Shallow respirations were noted. Diminished breath sounds are noted throughout. CARDIOVASCULAR: Regular rate and rhythm noted there no murmurs rubs or gallops normal S1 normal S2. GASTROINTESTINAL: The abdomen is soft. Abdomen is nontender. MUSCULOSKELETAL/EXTREMITIES: There is no evidence of gross deformity full range of motion is noted in the hips and shoulders. SKIN: There is no obvious evidence of any rash. There are no petechiae, pallor or cyanosis noted. NEUROLOGIC: Patient is awake alert and oriented x3. Strength was diminished globally. MEDICAL DECISION MAKING: The patient is a 62-year-old female who presented to the emergency department for an evaluation. The patient has been having decreased intake. She was very hypotensive. Septic work-up was undertaken after I evaluated the patient although she did have some laboratory studies ordered in triage. The patient does have a history of COPD as well as CHF. IV fluids were given for sepsis but they were given judiciously. The patient was treated with empiric antibiotics. I discussed patient's laboratory and radiographic studies with her. She was found to have signs of pneumonia on chest x-ray. I did discuss her condition with the on-call [facility] hospitalist. They have agreed to evaluate the patient in the emergency department for further management and disposition. Triage Nursing notes reviewed. Prior medical records reviewed Vital Signs: reviewed and remarkable for initial hypotension and tachycardia. Differential diagnosis: Infection, dehydration, metabolic abnormality, hypo/hyperglycemia, electrolyte disturbance, anemia, hypoxia, cardiac sources, intracerebral event, toxicologic, neurologic, as well as other pathologies. ER treatment provided: See below Diagnostics interpreted by me: ECG: EKG was obtained in the emergency department. My interpretation is sinus tachycardia at 137 bpm. There is no ectopy. Nonspecific ST depressions were noted throughout. This was compared to a tracing from January 07, 2023. There was an increase in rate otherwise no changes were noted. Cardiac Monitoring: An order was placed for continuous cardiac monitoring. The monitor shows a rate of 110 bpm with sinus tachycardia. Laboratory studies: As stated above and show below. Imaging studies: See below. Radiographic imaging was reviewed by myself Consultation(s): I discussed this case with Dr. Pagan who is on-call for the [facility]ist group. ED COURSE: Procedures: none Critical Care: I have personally spent greater than 65 minutes of critical care time in the direct management of this patient. This includes bedside care, interpretation of diagnostic studies, and testing, discussion with consultants, patient, and family members, and other required patient management activities. This 65 minutes is in excess of all separately billable procedures. Past Med/Surg History Medical History (Updated 01/26/23 @ 16:53 by Jason Upton MD) Abnormal EKG Acute on chronic diastolic CHF (congestive heart failure) recent diagnosis 01/07/23 at [facility]--pt states she is improving Anxiety Arthritis Bilateral pleural effusion hx CAD (coronary artery disease) Cholecystitis Chronic back pain + neck Chronic combined systolic (congestive) and diastolic (congestive) heart failure Chronic dyspnea oxygen prn Depression Diastolic CHF Elevated troponin Emphysema/COPD inhaler daily/prn, nebulizer prn Fibromyalgia GERD (gastroesophageal reflux disease) History of aortic valve disease s/p AVR (2005) History of nicotine dependence Hyperlipidemia Hyperlipidemia Hypertension Ischemic stroke Remote hx per records (?11/2018) Mitral valve disease s/p MVR (2005) On anticoagulant therapy plavix daily---MVR/AVR--follows with Krystian Hai On home oxygen therapy 2L O2 HS + PRN Osteoporosis Peripheral neuropathy Positive colorectal cancer screening using Cologuard test per pt reason for scheduled colonoscopy Positive colorectal cancer screening using Cologuard test Pulmonary hypertension Transient ischemic attack (TIA) 2019--no deficits, followed with Dr. Plummer (cleared) follows with PCP and cardiology Surgical History H/O: hysterectomy History of bronchoscopy History of colonoscopy History of esophagogastroduodenoscopy (EGD) History of heart valve replacement AVR (2005) History of lung biopsy Hx laparoscopic cholecystectomy (01/13/21) Laparoscopic Cholecystectomy Dr. Pulido 01-13-2021 S/P mitral valve replacement with bioprosthetic valve 2005 Family History Mother Slow to wake up after anesthesia Sister Family history of diabetes mellitus Father Stroke Other Coronary heart disease Denies family history of Ovarian cancer Prostate cancer Breast cancer Colorectal cancer Social History Smoking Status: Former smoker Tobacco Type: Cigarettes Age Started Using Tobacco: 18; packs per day: 0.5; Second Hand Exposure: Yes (FAMILY SMOKED); Do You Dip or Chew Tobacco: No; Hx Alcohol Use: No Hx Substance Use: No Preferred Language: Ethiopian Communication Ability: Effective Hearing Ability: Normal Seed Packer Required: No Beliefs That Will Affect Care: None marital status: Current Living Situation: Significant Other Current Living Situation Comment: lives with Sebastián haynes in a house current occupational status: unemployed and disabled How many Children do You have: 2 Feels Safe at Home: Yes Childhood Exposure to Second-Hand Smoke: Yes Diet: regular during the past year weight has: decreased > 10 lbs Dental Care, Regularly: No Physical Activity Frequency: 3-4 Times per Week Seatbelt Use: always Sunscreen Use: Yes Assistive Devices: Denture - Upper, Denture - Lower, Glasses and Oxygen - at Night Allergies Allergies Allergy/AdvReac Type Severity Reaction Status Date / Time aspirin Allergy Intermediate Hives Verified 01/19/23 11:26 hydrochlorothiazide Allergy Intermediate RASH/"Sick Verified 01/19/23 11:26 in stomach" trazodone AdvReac Severe Vomiting Verified 01/19/23 11:26 tramadol AdvReac Mild Nausea Verified 01/19/23 11:26 Home Meds Home Medications Medication Instructions Recorded Confirmed nitroglycerin 0.4 mg sublingual See Rx Instructions .Route 11/09/18 01/19/23 tablet .COMPLEX PRN Chest Pain albuterol sulfate 2.5 mg/3 mL See Rx Instructions .Route 01/17/19 01/19/23 (0.083 %) solution for nebulization .COMPLEX PRN SOB albuterol sulfate 90 mcg/actuation See Rx Instructions .Route 01/17/19 01/19/23 aerosol inhaler .COMPLEX PRN SOB ipratropium bromide 0.02 % See Rx Instructions .Route 01/17/19 01/19/23 solution for inhalation .COMPLEX PRN SOB cholecalciferol (vitamin D3) 50 4,000 units PO QAM 05/21/19 01/19/23 mcg (2,000 unit) tablet (Vitamin D3) cyanocobalamin (vitamin B-12) 1,000 mcg PO QAM 05/21/19 01/19/23 1,000 mcg tablet mirtazapine 15 mg tablet 15 mg PO HS 01/07/23 01/26/23 furosemide 20 mg tablet (Lasix) 20 mg PO QAM 01/11/23 01/26/23 potassium chloride 10 mEq 10 meq PO QAM 01/11/23 01/26/23 capsule,extended release spironolactone 25 mg tablet 25 mg PO QAM 01/11/23 01/26/23 fluticasone 250 mcg-salmeterol 50 See Rx Instructions .Route .COMPLEX 01/26/23 mcg/dose blistr powdr for inhalation (Advair Diskus) lorazepam 0.5 mg tablet 0.5 mg PO HS PRN Other 01/26/23 01/26/23 metoprolol succinate 25 mg 12.5 mg PO QAM 01/26/23 01/26/23 tablet,extended release 24 hr trazodone 50 - 100 mg PO HS PRN Sleep 01/26/23 01/26/23 Previous Rx's Medication Instructions Recorded lisinopril 2.5 mg tablet 2.5 mg PO QAM #90 tabs 03/28/22 atorvastatin 40 mg tablet 40 mg PO QPM #90 tabs 04/15/22 clopidogrel 75 mg tablet 75 mg PO QPM #90 tabs 05/03/22 gabapentin 300 mg capsule 600 mg PO BID #360 caps 06/09/22 folic acid 1 mg tablet 1 mg PO QAM #90 tabs 11/24/22 montelukast 10 mg tablet 10 mg PO QAM #90 tabs 12/08/22 pantoprazole 40 mg tablet,delayed 40 mg PO BID #90 tabs 12/12/22 release oxycodone 5 mg tablet See Rx Instructions PO Q4H PRN 01/18/23 pain #100 tabs Results & Data (ED) Vital Signs Vital Signs - 24 hr 01/26/23 13:18 01/26/23 14:25 01/26/23 14:53 Temperature 36.2 C L Temperature Source Temporal Artery Scan Pulse Rate 64 132 H Pulse Rate [Apical] 124 H Pulse Rate from SpO2 Sensor Respiratory Rate 20 22 Respiratory Effort / Characteristics Non-Labored Spontaneous Respiratory Depth Normal Respiratory Pattern Regular Blood Pressure 89/51 L Blood Pressure [Right Arm] 115/62 Blood Pressure Mean 63 Blood Pressure Mean [Right Arm] 79 Pulse Oximetry 100 93 Oxygen Delivery Method Room Air Nasal Cannula Oxygen Flow Rate 4 Fraction of Inspired Oxygen Sepsis Recent Fever Within 48 Hours No Sepsis New/Unexplained Change in Mental Status No Sepsis Action Taken by Nursing No Action Required Oxygen Flow Rate - Titration Pulse Oximetry Post Tiitration 01/26/23 15:42 01/26/23 15:01 01/26/23 15:01 Temperature Temperature Source Pulse Rate 120 H Pulse Rate [Apical] Pulse Rate from SpO2 Sensor Respiratory Rate 26 H Respiratory Effort / Characteristics Respiratory Depth Respiratory Pattern Blood Pressure 118/57 L Blood Pressure [Right Arm] Blood Pressure Mean 87 Blood Pressure Mean [Right Arm] Pulse Oximetry 82 L Oxygen Delivery Method Nasal Cannula Oxymask Oxygen Flow Rate 4 Fraction of Inspired Oxygen Sepsis Recent Fever Within 48 Hours Sepsis New/Unexplained Change in Mental Status Sepsis Action Taken by Nursing Oxygen Flow Rate - Titration 10 Pulse Oximetry Post Tiitration 90 01/26/23 15:15 01/26/23 15:30 01/26/23 15:31 Temperature Temperature Source Pulse Rate 119 H Pulse Rate [Apical] Pulse Rate from SpO2 Sensor 118 H Respiratory Rate 27 H Respiratory Effort / Characteristics Respiratory Depth Respiratory Pattern Blood Pressure 111/63 130/58 L Blood Pressure [Right Arm] Blood Pressure Mean 67 69 Blood Pressure Mean [Right Arm] Pulse Oximetry 82 L Oxygen Delivery Method Nasal Cannula Oxygen Flow Rate 4 Fraction of Inspired Oxygen Sepsis Recent Fever Within 48 Hours Sepsis New/Unexplained Change in Mental Status Sepsis Action Taken by Nursing Oxygen Flow Rate - Titration Pulse Oximetry Post Tiitration 01/26/23 15:45 01/26/23 15:45 01/26/23 16:15 Temperature Temperature Source Pulse Rate 113 H 114 H Pulse Rate [Apical] Pulse Rate from SpO2 Sensor 113 H Respiratory Rate 26 H 24 Respiratory Effort / Characteristics Spontaneous Respiratory Depth Respiratory Pattern Tachypnea Blood Pressure 121/60 Blood Pressure [Right Arm] Blood Pressure Mean 83 Blood Pressure Mean [Right Arm] Pulse Oximetry 91 95 Oxygen Delivery Method Oxymask Oxygen Flow Rate 10 Fraction of Inspired Oxygen 100 Sepsis Recent Fever Within 48 Hours Sepsis New/Unexplained Change in Mental Status Sepsis Action Taken by Nursing Oxygen Flow Rate - Titration Pulse Oximetry Post Tiitration 01/26/23 16:26 01/26/23 16:26 01/26/23 17:00 Temperature Temperature Source Pulse Rate 110 H Pulse Rate [Apical] 110 H 112 H Pulse Rate from SpO2 Sensor Respiratory Rate 27 H 27 H 32 H Respiratory Effort / Characteristics Respiratory Depth Respiratory Pattern Blood Pressure Blood Pressure [Right Arm] 120/79 139/61 Blood Pressure Mean Blood Pressure Mean [Right Arm] 92 87 Pulse Oximetry 93 Oxygen Delivery Method BiPAP BiPAP BiPAP Oxygen Flow Rate Fraction of Inspired Oxygen 100 100 Sepsis Recent Fever Within 48 Hours Sepsis New/Unexplained Change in Mental Status Sepsis Action Taken by Nursing Oxygen Flow Rate - Titration Pulse Oximetry Post Tiitration 01/26/23 17:15 01/26/23 17:15 01/26/23 17:30 Temperature Temperature Source Pulse Rate 106 H Pulse Rate [Apical] Pulse Rate from SpO2 Sensor 110 H Respiratory Rate 30 H Respiratory Effort / Characteristics Respiratory Depth Respiratory Pattern Blood Pressure 127/70 123/64 Blood Pressure [Right Arm] Blood Pressure Mean 94 92 Blood Pressure Mean [Right Arm] Pulse Oximetry 95 Oxygen Delivery Method BiPAP BiPAP Oxygen Flow Rate Fraction of Inspired Oxygen 100 Sepsis Recent Fever Within 48 Hours Sepsis New/Unexplained Change in Mental Status Sepsis Action Taken by Nursing Oxygen Flow Rate - Titration Pulse Oximetry Post Tiitration 01/26/23 17:30 01/26/23 17:45 01/26/23 17:45 Temperature Temperature Source Pulse Rate 107 H 106 H Pulse Rate [Apical] Pulse Rate from SpO2 Sensor 111 H 113 H Respiratory Rate 26 H 30 H Respiratory Effort / Characteristics Respiratory Depth Respiratory Pattern Blood Pressure 125/65 Blood Pressure [Right Arm] Blood Pressure Mean 85 Blood Pressure Mean [Right Arm] Pulse Oximetry 96 95 Oxygen Delivery Method BiPAP BiPAP Oxygen Flow Rate Fraction of Inspired Oxygen 100 100 Sepsis Recent Fever Within 48 Hours Sepsis New/Unexplained Change in Mental Status Sepsis Action Taken by Nursing Oxygen Flow Rate - Titration Pulse Oximetry Post Tiitration 01/26/23 18:00 01/26/23 18:00 01/26/23 17:58 Temperature Temperature Source Pulse Rate 112 H 111 H Pulse Rate [Apical] Pulse Rate from SpO2 Sensor 112 H Respiratory Rate 33 H 29 H Respiratory Effort / Characteristics Spontaneous Respiratory Depth Respiratory Pattern Blood Pressure 130/69 Blood Pressure [Right Arm] Blood Pressure Mean 106 Blood Pressure Mean [Right Arm] Pulse Oximetry 93 96 Oxygen Delivery Method BiPAP Oxygen Flow Rate Fraction of Inspired Oxygen 85 100 Sepsis Recent Fever Within 48 Hours Sepsis New/Unexplained Change in Mental Status Sepsis Action Taken by Nursing Oxygen Flow Rate - Titration Pulse Oximetry Post Tiitration 01/26/23 18:19 01/26/23 18:15 01/26/23 18:15 Temperature Temperature Source Pulse Rate 112 H 113 H Pulse Rate [Apical] Pulse Rate from SpO2 Sensor 113 H Respiratory Rate 28 H Respiratory Effort / Characteristics Respiratory Depth Respiratory Pattern Blood Pressure 131/79 Blood Pressure [Right Arm] Blood Pressure Mean 113 Blood Pressure Mean [Right Arm] Pulse Oximetry 94 Oxygen Delivery Method BiPAP Oxygen Flow Rate Fraction of Inspired Oxygen 85 Sepsis Recent Fever Within 48 Hours Sepsis New/Unexplained Change in Mental Status Sepsis Action Taken by Nursing Oxygen Flow Rate - Titration Pulse Oximetry Post Tiitration 01/26/23 18:38 01/26/23 18:38 01/26/23 18:45 Temperature Temperature Source Pulse Rate 116 H Pulse Rate [Apical] Pulse Rate from SpO2 Sensor 114 H Respiratory Rate 26 H Respiratory Effort / Characteristics Respiratory Depth Respiratory Pattern Blood Pressure 135/76 108/69 Blood Pressure [Right Arm] Blood Pressure Mean 109 87 Blood Pressure Mean [Right Arm] Pulse Oximetry 92 Oxygen Delivery Method BiPAP Oxygen Flow Rate Fraction of Inspired Oxygen Sepsis Recent Fever Within 48 Hours Sepsis New/Unexplained Change in Mental Status Sepsis Action Taken by Nursing Oxygen Flow Rate - Titration Pulse Oximetry Post Tiitration 01/26/23 18:45 01/26/23 19:24 01/26/23 19:00 Temperature Temperature Source Pulse Rate 111 H Pulse Rate [Apical] Pulse Rate from SpO2 Sensor 111 H Respiratory Rate 28 H Respiratory Effort / Characteristics Respiratory Depth Respiratory Pattern Blood Pressure 122/71 Blood Pressure [Right Arm] Blood Pressure Mean 103 Blood Pressure Mean [Right Arm] Pulse Oximetry 92 Oxygen Delivery Method Oxygen Flow Rate Fraction of Inspired Oxygen 100 Sepsis Recent Fever Within 48 Hours Sepsis New/Unexplained Change in Mental Status Sepsis Action Taken by Nursing Oxygen Flow Rate - Titration Pulse Oximetry Post Tiitration 01/26/23 19:00 01/26/23 19:15 01/26/23 19:15 Temperature Temperature Source Pulse Rate 111 H 113 H Pulse Rate [Apical] Pulse Rate from SpO2 Sensor 112 H 114 H Respiratory Rate 26 H 25 H Respiratory Effort / Characteristics Respiratory Depth Respiratory Pattern Blood Pressure 121/67 Blood Pressure [Right Arm] Blood Pressure Mean 87 Blood Pressure Mean [Right Arm] Pulse Oximetry 90 Oxygen Delivery Method Oxygen Flow Rate Fraction of Inspired Oxygen Sepsis Recent Fever Within 48 Hours Sepsis New/Unexplained Change in Mental Status Sepsis Action Taken by Nursing Oxygen Flow Rate - Titration Pulse Oximetry Post Tiitration 01/26/23 19:30 01/26/23 19:30 01/26/23 19:45 Temperature Temperature Source Pulse Rate 110 H Pulse Rate [Apical] Pulse Rate from SpO2 Sensor 113 H Respiratory Rate 23 Respiratory Effort / Characteristics Respiratory Depth Respiratory Pattern Blood Pressure 118/67 126/67 Blood Pressure [Right Arm] Blood Pressure Mean 100 85 Blood Pressure Mean [Right Arm] Pulse Oximetry 98 Oxygen Delivery Method Oxygen Flow Rate Fraction of Inspired Oxygen Sepsis Recent Fever Within 48 Hours Sepsis New/Unexplained Change in Mental Status Sepsis Action Taken by Nursing Oxygen Flow Rate - Titration Pulse Oximetry Post Tiitration 01/26/23 19:45 01/26/23 20:00 01/26/23 20:00 Temperature Temperature Source Pulse Rate 108 H 112 H Pulse Rate [Apical] Pulse Rate from SpO2 Sensor 108 H 110 H Respiratory Rate 25 H 24 Respiratory Effort / Characteristics Respiratory Depth Respiratory Pattern Blood Pressure 126/84 Blood Pressure [Right Arm] Blood Pressure Mean 86 Blood Pressure Mean [Right Arm] Pulse Oximetry 99 98 Oxygen Delivery Method Oxygen Flow Rate Fraction of Inspired Oxygen Sepsis Recent Fever Within 48 Hours Sepsis New/Unexplained Change in Mental Status Sepsis Action Taken by Nursing Oxygen Flow Rate - Titration Pulse Oximetry Post Tiitration 01/26/23 20:15 01/26/23 20:15 Temperature Temperature Source Pulse Rate 110 H Pulse Rate [Apical] Pulse Rate from SpO2 Sensor 111 H Respiratory Rate 20 Respiratory Effort / Characteristics Respiratory Depth Respiratory Pattern Blood Pressure 130/63 Blood Pressure [Right Arm] Blood Pressure Mean 103 Blood Pressure Mean [Right Arm] Pulse Oximetry 98 Oxygen Delivery Method Oxygen Flow Rate Fraction of Inspired Oxygen Sepsis Recent Fever Within 48 Hours Sepsis New/Unexplained Change in Mental Status Sepsis Action Taken by Nursing Oxygen Flow Rate - Titration Pulse Oximetry Post Tiitration Home Medications Current Medication List: was personally reviewed by me Laboratory Data Attestation: I reviewed the patient's lab results. 01/26/23 13:40 01/26/23 13:40 Lab Results 01/26/23 01/26/23 01/26/23 Range/Units 13:40 13:40 13:40 WBC 10.48 (4.8-10.8) K/ul RBC 5.89 H (4.20-5.40) M/uL Hgb 16.8 H (12.0-16.0) g/dl Hct 51.3 H (37.0-47.0) % MCV 87.1 (80.0-100.0) fL MCH 28.5 (25.0-34.0) pg MCHC 32.7 (32.0-36.0) g/dL RDW Std Deviation 45.1 (36.4-46.3) fL RDW Coeff of Claudette 14.1 (11.5-14.5) % Plt Count 173 (130-400) K/uL MPV 11.5 (9.4-12.4) fL Immature Gran % (Auto) 0.8 % Neut % (Auto) 83.9 % Lymph % (Auto) 10.1 % Cloud % (Auto) 3.4 % Eos % (Auto) 1.5 % Baso % (Auto) 0.3 % Neut # (Auto) 8.79 H (1.40-6.50) K/uL Lymph # (Auto) 1.06 L (1.20-3.40) K/uL Cloud # (Auto) 0.36 (0.11-0.59) K/uL Eos # (Auto) 0.16 (0.00-0.50) K/uL Baso # (Auto) 0.03 (0.00-0.20) K/uL Immature Gran # (Auto) 0.08 (0.01-0.20) K/uL Toxic Vacuolation 1+ Dohle Bodies 1+ PT Cancelled INR Cancelled APTT Cancelled PTT Ratio Cancelled ABG pH (7.35-7.45) ABG pCO2 (35-46) mmHg ABG pO2 (80-95) mmHg ABG HCO3 (19-24) mmol/L ABG O2 Saturation (90-95) % ABG Base Excess (-9-1.8) mEq/L Herbert Test (Pos) VBG pH (7.36-7.41) VBG pCO2 (38-50) mmHg VBG pO2 mmHg VBG HCO3 mmol/L VBG O2 Saturation % VBG Base Excess mEq/L Oxygen Given Sodium 131 L (136-145) mmol/L Potassium 4.5 (3.5-5.1) mmol/L Chloride 91 L (98-107) mmol/L Carbon Dioxide 24 (21-32) mmol/L Anion Gap 16 H (3-11) BUN 32 H (6-23) mg/dl Creatinine 1.67 H (0.6-1.2) mg/dl Est Cr Clr Drug Dosing Not Reportable Est GFR ( Amer) 37.9 ml/min Est GFR (Non-Af Amer) 32.7 ml/min BUN/Creatinine Ratio 19.2 (10-20) Glucose 82 (70-99(Fasting)) mg/dl Osmolality (280-300) mOsm/kg Lactate (0.4-2.0) mmol/L Calcium 8.8 (8.6-10.3) mg/dl Magnesium 1.3 L (1.7-2.4) mg/dl Total Bilirubin 1.1 H (0.2-1.0) mg/dl AST 102 H (13-39) U/L ALT 40 (7-52) U/L Alkaline Phosphatase 103 (34-104) U/L Ammonia (18-72) umol/L Troponin I High Sens 277.6 H* (0-14) pg/ml Total Protein 7.6 (6.0-8.3) gm/dl Albumin 3.8 (3.4-5.0) gm/dl Globulin 3.8 (2.5-4.0) gm/dl Albumin/Globulin Ratio 1.0 (0.9-2) Lipase 5 L (11-82) U/L Procalcitonin TSH 2.283 (0.300-4.500) uIu/ml Urine Color Urine Appearance (Clear) Urine pH (4.5-7.5) Ur Specific [place] (1.000-1.030) Urine Protein (Negative) Urine Glucose (UA) (Negative) Urine Ketones (Negative) Urine Blood (Negative) Urine Nitrite (Negative) Urine Bilirubin (Negative) Urine Urobilinogen (Negative) Ur Leukocyte Esterase (Negative) Urine WBC (Auto) (0-5) /hpf Urine RBC (Auto) (0-4) /hpf U Hyaline Cast (Auto) (0-5) /lpf U Epithel Cells (Auto) (0-5) /lpf Urine Bacteria (Auto) (Negative) Nasal Screen MRSA (PCR) (Negative) Adenovirus (PCR) (NotDetected) B. pertussis DNA (PCR) (NotDetected) B.parapertussis DNA PCR (NotDetected) C. pneumoniae DNA (PCR) (NotDetected) Coronavirus OC43 (PCR) (NotDetected) Coronavirus HKU1 (PCR) (NotDetected) Coronavirus 229E (PCR) (NotDetected) SARS-CoV-2 (PCR) (NotDetected) Coronavirus NL63 (PCR) (NotDetected) Human Metapneumovir PCR (NotDetected) Influenza Type A (PCR) (NotDetected) Influenza Type B (PCR) (NotDetected) M. pneumoniae (PCR) (NotDetected) Parainfluenza 1 (PCR) (NotDetected) Parainfluenza 2 (PCR) (NotDetected) Parainfluenza 3 (PCR) (NotDetected) Parainfluenza 4 (PCR) (NotDetected) RSV (PCR) (NotDetected) Entero/Rhino (PCR) (NotDetected) 09/28/23 09/28/23 09/28/23 Range/Units 13:40 14:51 14:51 WBC (4.8-10.8) K/ul RBC (4.20-5.40) M/uL Hgb (12.0-16.0) g/dl Hct (37.0-47.0) % MCV (80.0-100.0) fL MCH (25.0-34.0) pg MCHC (32.0-36.0) g/dL RDW Std Deviation (36.4-46.3) fL RDW Coeff of Claudette (11.5-14.5) % Plt Count (130-400) K/uL MPV (9.4-12.4) fL Immature Gran % (Auto) % Neut % (Auto) % Lymph % (Auto) % Cloud % (Auto) % Eos % (Auto) % Baso % (Auto) % Neut # (Auto) (1.40-6.50) K/uL Lymph # (Auto) (1.20-3.40) K/uL Cloud # (Auto) (0.11-0.59) K/uL Eos # (Auto) (0.00-0.50) K/uL Baso # (Auto) (0.00-0.20) K/uL Immature Gran # (Auto) (0.01-0.20) K/uL Toxic Vacuolation Dohle Bodies PT 15.4 H INR 1.4 H APTT 36.3 H PTT Ratio 1.3 ABG pH (7.35-7.45) ABG pCO2 (35-46) mmHg ABG pO2 (80-95) mmHg ABG HCO3 (19-24) mmol/L ABG O2 Saturation (90-95) % ABG Base Excess (-9-1.8) mEq/L Herbert Test (Pos) VBG pH (7.36-7.41) VBG pCO2 (38-50) mmHg VBG pO2 mmHg VBG HCO3 mmol/L VBG O2 Saturation % VBG Base Excess mEq/L Oxygen Given Sodium (136-145) mmol/L Potassium (3.5-5.1) mmol/L Chloride (98-107) mmol/L Carbon Dioxide (21-32) mmol/L Anion Gap (3-11) BUN (6-23) mg/dl Creatinine (0.6-1.2) mg/dl Est Cr Clr Drug Dosing Est GFR ( Amer) ml/min Est GFR (Non-Af Amer) ml/min BUN/Creatinine Ratio (10-20) Glucose (70-99(Fasting)) mg/dl Osmolality (280-300) mOsm/kg Lactate (0.4-2.0) mmol/L Calcium (8.6-10.3) mg/dl Magnesium (1.7-2.4) mg/dl Total Bilirubin (0.2-1.0) mg/dl AST (13-39) U/L ALT (7-52) U/L Alkaline Phosphatase (34-104) U/L Ammonia 24.0 (18-72) umol/L Troponin I High Sens (0-14) pg/ml Total Protein (6.0-8.3) gm/dl Albumin (3.4-5.0) gm/dl Globulin (2.5-4.0) gm/dl Albumin/Globulin Ratio (0.9-2) Lipase (11-82) U/L Procalcitonin Cancelled TSH (0.300-4.500) uIu/ml Urine Color Urine Appearance (Clear) Urine pH (4.5-7.5) Ur Specific [place] (1.000-1.030) Urine Protein (Negative) Urine Glucose (UA) (Negative) Urine Ketones (Negative) Urine Blood (Negative) Urine Nitrite (Negative) Urine Bilirubin (Negative) Urine Urobilinogen (Negative) Ur Leukocyte Esterase (Negative) Urine WBC (Auto) (0-5) /hpf Urine RBC (Auto) (0-4) /hpf U Hyaline Cast (Auto) (0-5) /lpf U Epithel Cells (Auto) (0-5) /lpf Urine Bacteria (Auto) (Negative) Nasal Screen MRSA (PCR) (Negative) Adenovirus (PCR) (NotDetected) B. pertussis DNA (PCR) (NotDetected) B.parapertussis DNA PCR (NotDetected) C. pneumoniae DNA (PCR) (NotDetected) Coronavirus OC43 (PCR) (NotDetected) Coronavirus HKU1 (PCR) (NotDetected) Coronavirus 229E (PCR) (NotDetected) SARS-CoV-2 (PCR) (NotDetected) Coronavirus NL63 (PCR) (NotDetected) Human Metapneumovir PCR (NotDetected) Influenza Type A (PCR) (NotDetected) Influenza Type B (PCR) (NotDetected) M. pneumoniae (PCR) (NotDetected) Parainfluenza 1 (PCR) (NotDetected) Parainfluenza 2 (PCR) (NotDetected) Parainfluenza 3 (PCR) (NotDetected) Parainfluenza 4 (PCR) (NotDetected) RSV (PCR) (NotDetected) Entero/Rhino (PCR) (NotDetected) 01/26/23 01/26/23 01/26/23 Range/Units 14:51 14:51 14:51 WBC (4.8-10.8) K/ul RBC (4.20-5.40) M/uL Hgb (12.0-16.0) g/dl Hct (37.0-47.0) % MCV (80.0-100.0) fL MCH (25.0-34.0) pg MCHC (32.0-36.0) g/dL RDW Std Deviation (36.4-46.3) fL RDW Coeff of Claudette (11.5-14.5) % Plt Count (130-400) K/uL MPV (9.4-12.4) fL Immature Gran % (Auto) % Neut % (Auto) % Lymph % (Auto) % Cloud % (Auto) % Eos % (Auto) % Baso % (Auto) % Neut # (Auto) (1.40-6.50) K/uL Lymph # (Auto) (1.20-3.40) K/uL Cloud # (Auto) (0.11-0.59) K/uL Eos # (Auto) (0.00-0.50) K/uL Baso # (Auto) (0.00-0.20) K/uL Immature Gran # (Auto) (0.01-0.20) K/uL Toxic Vacuolation Dohle Bodies PT INR APTT PTT Ratio ABG pH (7.35-7.45) ABG pCO2 (35-46) mmHg ABG pO2 (80-95) mmHg ABG HCO3 (19-24) mmol/L ABG O2 Saturation (90-95) % ABG Base Excess (-9-1.8) mEq/L Herbert Test (Pos) VBG pH 7.21 L (7.36-7.41) VBG pCO2 63 H (38-50) mmHg VBG pO2 15 mmHg VBG HCO3 25 mmol/L VBG O2 Saturation < 60.0 % VBG Base Excess -3.9 mEq/L Oxygen Given Sodium (136-145) mmol/L Potassium (3.5-5.1) mmol/L Chloride (98-107) mmol/L Carbon Dioxide (21-32) mmol/L Anion Gap (3-11) BUN (6-23) mg/dl Creatinine (0.6-1.2) mg/dl Est Cr Clr Drug Dosing Est GFR ( Amer) ml/min Est GFR (Non-Af Amer) ml/min BUN/Creatinine Ratio (10-20) Glucose (70-99(Fasting)) mg/dl Osmolality 290 (280-300) mOsm/kg Lactate (0.4-2.0) mmol/L Calcium (8.6-10.3) mg/dl Magnesium (1.7-2.4) mg/dl Total Bilirubin (0.2-1.0) mg/dl AST (13-39) U/L ALT (7-52) U/L Alkaline Phosphatase (34-104) U/L Ammonia (18-72) umol/L Troponin I High Sens (0-14) pg/ml Total Protein (6.0-8.3) gm/dl Albumin (3.4-5.0) gm/dl Globulin (2.5-4.0) gm/dl Albumin/Globulin Ratio (0.9-2) Lipase (11-82) U/L Procalcitonin 78.64 H TSH (0.300-4.500) uIu/ml Urine Color Urine Appearance (Clear) Urine pH (4.5-7.5) Ur Specific [place] (1.000-1.030) Urine Protein (Negative) Urine Glucose (UA) (Negative) Urine Ketones (Negative) Urine Blood (Negative) Urine Nitrite (Negative) Urine Bilirubin (Negative) Urine Urobilinogen (Negative) Ur Leukocyte Esterase (Negative) Urine WBC (Auto) (0-5) /hpf Urine RBC (Auto) (0-4) /hpf U Hyaline Cast (Auto) (0-5) /lpf U Epithel Cells (Auto) (0-5) /lpf Urine Bacteria (Auto) (Negative) Nasal Screen MRSA (PCR) (Negative) Adenovirus (PCR) (NotDetected) B. pertussis DNA (PCR) (NotDetected) B.parapertussis DNA PCR (NotDetected) C. pneumoniae DNA (PCR) (NotDetected) Coronavirus OC43 (PCR) (NotDetected) Coronavirus HKU1 (PCR) (NotDetected) Coronavirus 229E (PCR) (NotDetected) SARS-CoV-2 (PCR) (NotDetected) Coronavirus NL63 (PCR) (NotDetected) Human Metapneumovir PCR (NotDetected) Influenza Type A (PCR) (NotDetected) Influenza Type B (PCR) (NotDetected) M. pneumoniae (PCR) (NotDetected) Parainfluenza 1 (PCR) (NotDetected) Parainfluenza 2 (PCR) (NotDetected) Parainfluenza 3 (PCR) (NotDetected) Parainfluenza 4 (PCR) (NotDetected) RSV (PCR) (NotDetected) Entero/Rhino (PCR) (NotDetected) 01/26/23 01/26/23 01/26/23 Range/Units 15:20 15:30 15:45 WBC (4.8-10.8) K/ul RBC (4.20-5.40) M/uL Hgb (12.0-16.0) g/dl Hct (37.0-47.0) % MCV (80.0-100.0) fL MCH (25.0-34.0) pg MCHC (32.0-36.0) g/dL RDW Std Deviation (36.4-46.3) fL RDW Coeff of Claudette (11.5-14.5) % Plt Count (130-400) K/uL MPV (9.4-12.4) fL Immature Gran % (Auto) % Neut % (Auto) % Lymph % (Auto) % Cloud % (Auto) % Eos % (Auto) % Baso % (Auto) % Neut # (Auto) (1.40-6.50) K/uL Lymph # (Auto) (1.20-3.40) K/uL Cloud # (Auto) (0.11-0.59) K/uL Eos # (Auto) (0.00-0.50) K/uL Baso # (Auto) (0.00-0.20) K/uL Immature Gran # (Auto) (0.01-0.20) K/uL Toxic Vacuolation Dohle Bodies PT INR APTT PTT Ratio ABG pH (7.35-7.45) ABG pCO2 (35-46) mmHg ABG pO2 (80-95) mmHg ABG HCO3 (19-24) mmol/L ABG O2 Saturation (90-95) % ABG Base Excess (-9-1.8) mEq/L Herbert Test (Pos) VBG pH (7.36-7.41) VBG pCO2 (38-50) mmHg VBG pO2 mmHg VBG HCO3 mmol/L VBG O2 Saturation % VBG Base Excess mEq/L Oxygen Given Sodium (136-145) mmol/L Potassium (3.5-5.1) mmol/L Chloride (98-107) mmol/L Carbon Dioxide (21-32) mmol/L Anion Gap (3-11) BUN (6-23) mg/dl Creatinine (0.6-1.2) mg/dl Est Cr Clr Drug Dosing Est GFR ( Amer) ml/min Est GFR (Non-Af Amer) ml/min BUN/Creatinine Ratio (10-20) Glucose (70-99(Fasting)) mg/dl Osmolality (280-300) mOsm/kg Lactate 8.6 H* (0.4-2.0) mmol/L Calcium (8.6-10.3) mg/dl Magnesium (1.7-2.4) mg/dl Total Bilirubin (0.2-1.0) mg/dl AST (13-39) U/L ALT (7-52) U/L Alkaline Phosphatase (34-104) U/L Ammonia (18-72) umol/L Troponin I High Sens (0-14) pg/ml Total Protein (6.0-8.3) gm/dl Albumin (3.4-5.0) gm/dl Globulin (2.5-4.0) gm/dl Albumin/Globulin Ratio (0.9-2) Lipase (11-82) U/L Procalcitonin TSH (0.300-4.500) uIu/ml Urine Color Urine Appearance (Clear) Urine pH (4.5-7.5) Ur Specific [place] (1.000-1.030) Urine Protein (Negative) Urine Glucose (UA) (Negative) Urine Ketones (Negative) Urine Blood (Negative) Urine Nitrite (Negative) Urine Bilirubin (Negative) Urine Urobilinogen (Negative) Ur Leukocyte Esterase (Negative) Urine WBC (Auto) (0-5) /hpf Urine RBC (Auto) (0-4) /hpf U Hyaline Cast (Auto) (0-5) /lpf U Epithel Cells (Auto) (0-5) /lpf Urine Bacteria (Auto) (Negative) Nasal Screen MRSA (PCR) Negative (Negative) Adenovirus (PCR) Not Detected (NotDetected) B. pertussis DNA (PCR) Not Detected (NotDetected) B.parapertussis DNA PCR Not Detected (NotDetected) C. pneumoniae DNA (PCR) Not Detected (NotDetected) Coronavirus OC43 (PCR) Not Detected (NotDetected) Coronavirus HKU1 (PCR) Not Detected (NotDetected) Coronavirus 229E (PCR) Not Detected (NotDetected) SARS-CoV-2 (PCR) Not Detected (NotDetected) Coronavirus NL63 (PCR) Not Detected (NotDetected) Human Metapneumovir PCR Not Detected (NotDetected) Influenza Type A (PCR) Not Detected (NotDetected) Influenza Type B (PCR) Not Detected (NotDetected) M. pneumoniae (PCR) Not Detected (NotDetected) Parainfluenza 1 (PCR) Not Detected (NotDetected) Parainfluenza 2 (PCR) Not Detected (NotDetected) Parainfluenza 3 (PCR) Not Detected (NotDetected) Parainfluenza 4 (PCR) Not Detected (NotDetected) RSV (PCR) Not Detected (NotDetected) Entero/Rhino (PCR) DETECTED A* (NotDetected) 01/26/23 01/26/2301/26/23 Range/Units 17:41 17:41 17:41 WBC (4.8-10.8) K/ul RBC (4.20-5.40) M/uL Hgb (12.0-16.0) g/dl Hct (37.0-47.0) % MCV (80.0-100.0) fL MCH (25.0-34.0) pg MCHC (32.0-36.0) g/dL RDW Std Deviation (36.4-46.3) fL RDW Coeff of Claudette (11.5-14.5) % Plt Count (130-400) K/uL MPV (9.4-12.4) fL Immature Gran % (Auto) % Neut % (Auto) % Lymph % (Auto) % Cloud % (Auto) % Eos % (Auto) % Baso % (Auto) % Neut # (Auto) (1.40-6.50) K/uL Lymph # (Auto) (1.20-3.40) K/uL Cloud # (Auto) (0.11-0.59) K/uL Eos # (Auto) (0.00-0.50) K/uL Baso # (Auto) (0.00-0.20) K/uL Immature Gran # (Auto) (0.01-0.20) K/uL Toxic Vacuolation Dohle Bodies PT INR APTT PTT Ratio ABG pH 7.36 (7.35-7.45) ABG pCO2 40 (35-46) mmHg ABG pO2 79 L (80-95) mmHg ABG HCO3 23 (19-24) mmol/L ABG O2 Saturation 96.9 H (90-95) % ABG Base Excess -2.7 (-9-1.8) mEq/L Herbert Test Pos (Pos) VBG pH (7.36-7.41) VBG pCO2 (38-50) mmHg VBG pO2 mmHg VBG HCO3 mmol/L VBG O2 Saturation % VBG Base Excess mEq/L Oxygen Given 100% FiO2 Sodium (136-145) mmol/L Potassium (3.5-5.1) mmol/L Chloride (98-107) mmol/L Carbon Dioxide (21-32) mmol/L Anion Gap (3-11) BUN (6-23) mg/dl Creatinine (0.6-1.2) mg/dl Est Cr Clr Drug Dosing Est GFR ( Amer) ml/min Est GFR (Non-Af Amer) ml/min BUN/Creatinine Ratio (10-20) Glucose (70-99(Fasting)) mg/dl Osmolality (280-300) mOsm/kg Lactate 2.1 H* (0.4-2.0) mmol/L Calcium (8.6-10.3) mg/dl Magnesium (1.7-2.4) mg/dl Total Bilirubin (0.2-1.0) mg/dl AST (13-39) U/L ALT (7-52) U/L Alkaline Phosphatase (34-104) U/L Ammonia (18-72) umol/L Troponin I High Sens 382.7 H* D (0-14) pg/ml Total Protein (6.0-8.3) gm/dl Albumin (3.4-5.0) gm/dl Globulin (2.5-4.0) gm/dl Albumin/Globulin Ratio (0.9-2) Lipase (11-82) U/L Procalcitonin TSH (0.300-4.500) uIu/ml Urine Color Urine Appearance (Clear) Urine pH (4.5-7.5) Ur Specific [place] (1.000-1.030) Urine Protein (Negative) Urine Glucose (UA) (Negative) Urine Ketones (Negative) Urine Blood (Negative) Urine Nitrite (Negative) Urine Bilirubin (Negative) Urine Urobilinogen (Negative) Ur Leukocyte Esterase (Negative) Urine WBC (Auto) (0-5) /hpf Urine RBC (Auto) (0-4) /hpf U Hyaline Cast (Auto) (0-5) /lpf U Epithel Cells (Auto) (0-5) /lpf Urine Bacteria (Auto) (Negative) Nasal Screen MRSA (PCR) (Negative) Adenovirus (PCR) (NotDetected) B. pertussis DNA (PCR) (NotDetected) B.parapertussis DNA PCR (NotDetected) C. pneumoniae DNA (PCR) (NotDetected) Coronavirus OC43 (PCR) (NotDetected) Coronavirus HKU1 (PCR) (NotDetected) Coronavirus 229E (PCR) (NotDetected) SARS-CoV-2 (PCR) (NotDetected) Coronavirus NL63 (PCR) (NotDetected) Human Metapneumovir PCR (NotDetected) Influenza Type A (PCR) (NotDetected) Influenza Type B (PCR) (NotDetected) M. pneumoniae (PCR) (NotDetected) Parainfluenza 1 (PCR) (NotDetected) Parainfluenza 2 (PCR) (NotDetected) Parainfluenza 3 (PCR) (NotDetected) Parainfluenza 4 (PCR) (NotDetected) RSV (PCR) (NotDetected) Entero/Rhino (PCR) (NotDetected) 01/26/23 Range/Units 18:42 WBC (4.8-10.8) K/ul RBC (4.20-5.40) M/uL Hgb (12.0-16.0) g/dl Hct (37.0-47.0) % MCV (80.0-100.0) fL MCH (25.0-34.0) pg MCHC (32.0-36.0) g/dL RDW Std Deviation (36.4-46.3) fL RDW Coeff of Claudette (11.5-14.5) % Plt Count (130-400) K/uL MPV (9.4-12.4) fL Immature Gran % (Auto) % Neut % (Auto) % Lymph % (Auto) % Cloud % (Auto) % Eos % (Auto) % Baso % (Auto) % Neut # (Auto) (1.40-6.50) K/uL Lymph # (Auto) (1.20-3.40) K/uL Cloud # (Auto) (0.11-0.59) K/uL Eos # (Auto) (0.00-0.50) K/uL Baso # (Auto) (0.00-0.20) K/uL Immature Gran # (Auto) (0.01-0.20) K/uL Toxic Vacuolation Dohle Bodies PT INR APTT PTT Ratio ABG pH (7.35-7.45) ABG pCO2 (35-46) mmHg ABG pO2 (80-95) mmHg ABG HCO3 (19-24) mmol/L ABG O2 Saturation (90-95) % ABG Base Excess (-9-1.8) mEq/L Herbert Test (Pos) VBG pH (7.36-7.41) VBG pCO2 (38-50) mmHg VBG pO2 mmHg VBG HCO3 mmol/L VBG O2 Saturation % VBG Base Excess mEq/L Oxygen Given Sodium (136-145) mmol/L Potassium (3.5-5.1) mmol/L Chloride (98-107) mmol/L Carbon Dioxide (21-32) mmol/L Anion Gap (3-11) BUN (6-23) mg/dl Creatinine (0.6-1.2) mg/dl Est Cr Clr Drug Dosing Est GFR ( Amer) ml/min Est GFR (Non-Af Amer) ml/min BUN/Creatinine Ratio (10-20) Glucose (70-99(Fasting)) mg/dl Osmolality (280-300) mOsm/kg Lactate (0.4-2.0) mmol/L Calcium (8.6-10.3) mg/dl Magnesium (1.7-2.4) mg/dl Total Bilirubin (0.2-1.0) mg/dl AST (13-39) U/L ALT (7-52) U/L Alkaline Phosphatase (34-104) U/L Ammonia (18-72) umol/L Troponin I High Sens (0-14) pg/ml Total Protein (6.0-8.3) gm/dl Albumin (3.4-5.0) gm/dl Globulin (2.5-4.0) gm/dl Albumin/Globulin Ratio (0.9-2) Lipase (11-82) U/L Procalcitonin TSH (0.300-4.500) uIu/ml Urine Color Dark Yellow Urine Appearance Clear (Clear) Urine pH 5.0 (4.5-7.5) Ur Specific [place] 1.020 (1.000-1.030) Urine Protein Trace H (Negative) Urine Glucose (UA) Negative (Negative) Urine Ketones Negative (Negative) Urine Blood Negative (Negative) Urine Nitrite Negative (Negative) Urine Bilirubin Negative (Negative) Urine Urobilinogen Negative (Negative) Ur Leukocyte Esterase Trace H (Negative) Urine WBC (Auto) 1-5 (0-5) /hpf Urine RBC (Auto) 0-4 (0-4) /hpf U Hyaline Cast (Auto) >30 H (0-5) /lpf U Epithel Cells (Auto) >30 H (0-5) /lpf Urine Bacteria (Auto) Negative (Negative) Nasal Screen MRSA (PCR) (Negative) Adenovirus (PCR) (NotDetected) B. pertussis DNA (PCR) (NotDetected) B.parapertussis DNA PCR (NotDetected) C. pneumoniae DNA (PCR) (NotDetected) Coronavirus OC43 (PCR) (NotDetected) Coronavirus HKU1 (PCR) (NotDetected) Coronavirus 229E (PCR) (NotDetected) SARS-CoV-2 (PCR) (NotDetected) Coronavirus NL63 (PCR) (NotDetected) Human Metapneumovir PCR (NotDetected) Influenza Type A (PCR) (NotDetected) Influenza Type B (PCR) (NotDetected) M. pneumoniae (PCR) (NotDetected) Parainfluenza 1 (PCR) (NotDetected) Parainfluenza 2 (PCR) (NotDetected) Parainfluenza 3 (PCR) (NotDetected) Parainfluenza 4 (PCR) (NotDetected) RSV (PCR) (NotDetected) Entero/Rhino (PCR) (NotDetected) Administered Medications Discontinued Medications Sodium Chloride (Nss) 500 mls @ 999 mls/hr IV .Q31M ONE Stop: 01/26/23 14:38 Last Infusion: 01/26/23 15:38 Dose: 0 mls/hr Documented By: Admin: 01/26/23 14:46 Dose: 999 mls/hr Documented By: MARIN Magnesium Sulfate/Dextrose (Magnesium Sulfate / D5w) 1 gm in 100 mls @ 100 mls/hr IV Q1H RILEY Stop: 01/26/23 16:28 Last Infusion: 01/26/23 18:48 Dose: 0 mls/hr Documented By: Admin: 01/26/23 16:28 Dose: 100 mls/hr Documented By: Infusion: 01/26/23 16:22 Dose: 0 mls/hr Documented By: Admin: 01/26/23 14:51 Dose: 100 mls/hr Documented By: MARIN Sodium Chloride (Nss) 500 mls @ 999 mls/hr IV .Q31M ONE Stop: 01/26/23 14:59 Last Infusion: 01/26/23 15:58 Dose: 0 mls/hr Documented By: Admin: 01/26/23 14:47 Dose: 999 mls/hr Documented By: MARIN Piperacillin Sod/Tazobactam Sod (Zosyn) 4.5 gm in 100 mls @ 200 mls/hr IV NOW ONE Stop: 01/26/23 15:04 Last Infusion: 01/26/23 16:23 Dose: 0 mls/hr Documented By: Admin: 01/26/23 15:29 Dose: 200 mls/hr Documented By: MARIANELA Sodium Chloride (Nss) 500 mls @ 999 mls/hr IV .Q31M ONE Stop: 01/26/23 15:05 Last Infusion: 01/26/23 15:29 Dose: 0 mls/hr Documented By: Admin: 01/26/23 14:59 Dose: 999 mls/hr Documented By: MARIN Doxycycline Hyclate 100 mg/ (Dextrose) 100 mls @ 50 mls/hr IV NOW ONE Stop: 01/26/23 18:59 Last Admin: 01/26/23 17:55 Dose: 50 mls/hr Documented By: MARIANELA Vancomycin HCl 1,000 mg/ (Sodium Chloride) 270 mls @ 200 mls/hr IV NOW STA Stop: 01/26/23 17:59 Last Infusion: 01/26/23 17:55 Dose: 0 mls/hr Documented By: Admin: 01/26/23 17:02 Dose: 200 mls/hr Documented By: JESÚS Cefepime HCl 2,000 mg/ Syringe 20 mls @ 5 mls/min IV NOW ONE Stop: 01/26/23 17:03 Last Admin: 01/26/23 16:50 Dose: 5 mls/min Documented By: JESÚS Phytonadione (Phytonadione 5 Mg Tab) 5 mg PO NOW STA Stop: 01/26/23 15:56 Last Admin: 01/26/23 16:28 Dose: 5 mg Documented By: JESÚS Imaging Data Attestation: I personally reviewed and interpreted this imaging study as follows: My Impression: 1 view chest x-ray was obtained in the emergency department. My interpretation is bilateral pneumonia, final report below. Radiologist's Impression: Chest X-Ray 01/26/23 13:20 XR chest 1V portable CLINICAL HISTORY: Decreased oral intake, neck pain TECHNIQUE: Single frontal radiograph of the chest was obtained. Comparison: Comparison is made to chest radiograph 01/09/2023 FINDINGS: Median sternotomy wires are unchanged. Cardiomegaly is noted. Bilateral lower lung predominant airspace opacities are seen. Small left pleural effusion cannot be excluded. IMPRESSION: Bilateral lower lung predominant airspace opacities which may represent atelectasis, pneumonia, and/or aspiration. Small left pleural effusion cannot be excluded. ACT 112: Negative or not required by law. Electronically signed by: Kvng Sarmiento M.D. 01/26/2023 2:[address] 01/26/23 16:14 CT chest diagnostic wo con CLINICAL HISTORY: cough, hypoxia, suspect PNA TECHNIQUE: Multidetector row helical CT of the chest was performed. Coronal and sagittal reformations were obtained. Automated dose lowering techniques and/or adjustment according to patient size were utilized for this exam. CT DOSE: 205.68 mGy.cm Comparison: Comparison is made to CT chest 05/23/2022 FINDINGS: Lungs and pleura: Prominent emphysema is seen. There is total opacification of the left lower lobe as well as consolidation in the right lower lobe and left upper lobe. Heart and pericardium: Mitral annular calcifications are seen. Cardiomegaly is noted with biatrial enlargement. Vessels: Severe atherosclerotic changes in the aorta and coronary arteries. Pulmonary trunk measures 33 mm in diameter. Mediastinum and rolando: Multiple enlarged mediastinal lymph nodes measure up to 13 mm in diameter. Chest wall and lower neck: Unremarkable. Abdomen: Unremarkable. Bones: Degenerative changes in the thoracic spine. IMPRESSION: 1. Consolidations compatible with pneumonia in the left greater than right lower lungs with reactive lymphadenopathy. 2. Emphysema and pulmonary hypertension. ACT 112: Negative or not required by law. Electronically signed by: Kvng Sarmiento M.D. 01/26/2023 6:52 PM Discharge Plan Visit Data Chief Complaint: Illness Stated Complaint: REF BY DR; ILLNESS ED Provider: Dejon Ariza Discharge Problem: Pneumonia, BRITTNEY (acute kidney injury), Acute dehydration, Non-ST elevation MT (NSTEMI), Hypomagnesemia Patient Disposition: Being Evaluated by Hospitalist Forms Stand Alone Forms: My [facility] [employer] Prescriptions Prescriptions: No Action cyanocobalamin (vitamin B-12) 1,000 mcg tablet 1,000 mcg PO QAM Rx Instructions: otc Not on file with [facility] cholecalciferol (vitamin D3) [Vitamin D3] 2,000 unit tablet 4,000 units PO QAM Rx Instructions: otc Not on file with [facility] lisinopril 2.5 mg tablet 2.5 mg PO QAM Qty: 90 3RF atorvastatin 40 mg tablet 40 mg PO QPM Qty: 90 3RF clopidogrel 75 mg tablet 75 mg PO QPM Qty: 90 3RF gabapentin 300 mg capsule 600 mg PO BID Qty: 360 3RF folic acid 1 mg tablet 1 mg PO QAM Qty: 90 3RF montelukast 10 mg tablet 10 mg PO QAM Qty: 90 3RF oxycodone 5 mg tablet See Patient Comments PO Q4H PRN (Reason: pain) Qty: 100 0RF Rx Instructions: Patient uses this medication, 5mg by mouth every 4 hours as needed for severe pain ongoing therapy ongoing therapy Barrington Joshi [facility] [id number] License# [id number] pantoprazole 40 mg tablet,delayed release (DR/EC) 40 mg PO BID Qty: 90 4RF Rx Instructions: Take 1 tablet by mouth twice a day x 8 weeks, then reduce to 1 tablet daily. nitroglycerin 0.4 mg Tablet, Sublingual See Rx Instructions .ROUTE .COMPLEX PRN (Reason: Chest Pain) Rx Instructions: Not on file with [facility] albuterol sulfate 2.5 mg /3 mL (0.083 %) solution for nebulization See Rx Instructions .ROUTE .COMPLEX PRN (Reason: SOB) Rx Instructions: Not on [facility] with [facility] ipratropium bromide 0.02 % solution See Rx Instructions .ROUTE .COMPLEX PRN (Reason: SOB) Patient Comments: 1.25 mL INHALATION Please verify if patient is still using this neb treatment PRN; Rx Instructions: Not on [facility] 1.25 mL INHALATION Please verify if patient is still using this neb treatment PRN; albuterol sulfate 90 mcg/actuation HFA aerosol inhaler See Rx Instructions .ROUTE .COMPLEX PRN (Reason: SOB) Rx Instructions: Not on file with [facility] potassium chloride 10 mEq capsule, extended release 10 meq PO QAM spironolactone 25 mg tablet 25 mg PO QAM furosemide [Lasix] 20 mg tablet 20 mg PO QAM lorazepam 0.5 mg tablet 0.5 mg PO HS PRN (Reason: Other) Rx Instructions: On [facility], they werent sure if it was one time fill or not trazodone 50 - 100 mg PO HS PRN (Reason: Sleep) Rx Instructions: 1-2 tabs for sleep fluticasone propion-salmeterol [Advair Diskus] 250-50 mcg/dose blister with device See Rx Instructions .ROUTE .COMPLEX Rx Instructions: Not on file with [facility] metoprolol succinate 25 mg tablet extended release 24 hr 12.5 mg PO QAM Rx Instructions: 12.5 per pharmacy mirtazapine 15 mg tablet 15 mg PO HS Referrals Referrals: Barrington Joshi MD [Primary Care Provider] -
[2023-01-26 14:13] LABS: Albumin Level 3.8 gm/dl (3.4-5.0); Anion Gap 16 (3-11); Bilirubin,Total 1.1 mg/dl (0.2-1.0); Calcium 8.8 mg/dl (8.6-10.3); Carbon Dioxide 24 mmol/L (21-32); Chloride 91 mmol/L (98-107); Magnesium 1.3 mg/dl (1.7-2.4); Potassium 4.5 mmol/L (3.5-5.1); Sodium 131 mmol/L (136-145)
[2023-01-26 14:19] LABS: Alanine Aminotransferase 40 U/L (7-52); Alkaline Phosphatase 103 U/L (34-104); Aspartate Aminotransferase 102 U/L (13-39); BUN Creatinine Ratio 19.2 (10-20); Blood Urea Nitrogen 32 mg/dl (6-23); Est GFR (African American) 37.9 ml/min; Est GFR (Non-African American) 32.7 ml/min; Globulin 3.8 gm/dl (2.5-4.0); Glucose 82 mg/dl (70-99(Fasting)); Lipase 5 U/L (11-82); Total Protein 7.6 gm/dl (6.0-8.3)
[2023-01-26 14:27] LABS: Troponin I High Sensitivity 277.6 pg/ml (0-14)
[2023-01-26 14:31] LABS: Thyroid Stimulating Hormone 2.283 uIu/ml (0.300-4.500)
[2023-01-26] MEDS ORDERED: PIPERACILLIN/TAZOBACTAM 4.5 GM/100 ML BAG IV ONE (14:35)
--- NOTE | 2023-01-26 14:37 | XRay Report ---
XR chest 1V portable CLINICAL HISTORY: Decreased oral intake, neck pain TECHNIQUE: Single frontal radiograph of the chest was obtained. Comparison: Comparison is made to chest radiograph 01/09/2023 FINDINGS: Median sternotomy wires are unchanged. Cardiomegaly is noted. Bilateral lower lung predominant airspa ce opacities are seen. Small left pleural effusion cannot be excluded. IMPRESSION: Bilateral lower lung predominant airspace opacities which may represent atelectasis, pneumonia, and/o r aspiration. Small left pleural effusion cannot be excluded. ACT 112: Negative or not required by law. Electronically signed by: Kvng Sarmiento M.D. 01/26/2023 2:36 PM
[2023-01-26 14:38] LABS: Hematocrit (blood only) 51.3 % (37.0-47.0); Hemoglobin 16.8 g/dl (12.0-16.0); Mean Corpuscular Hemoglobin 28.5 pg (25.0-34.0); Mean Corpuscular Hgb Conc 32.7 g/dL (32.0-36.0); Mean Corpuscular Volume 87.1 fL (80.0-100.0); Mean Platelet Volume 11.5 fL (9.4-12.4); Platelet Count 173 K/uL (130-400); RDW Coefficient of Variation 14.1 % (11.5-14.5); RDW Standard Deviation 45.1 fL (36.4-46.3); Red Blood Count 5.89 M/uL (4.20-5.40); White Blood Count 10.48 K/ul (4.8-10.8)
[2023-01-26 14:41] LABS: Basophils # (auto) 0.03 K/uL (0.00-0.20); Basophils % (auto) 0.3 %; Dohle Bodies 1+; Eosinophils # (auto) 0.16 K/uL (0.00-0.50); Eosinophils % (auto) 1.5 %; Immature Granulocytes # (auto) 0.08 K/uL (0.01-0.20); Immature Granulocytes % (auto) 0.8 %; Lymphocytes # (auto) 1.06 K/uL (1.20-3.40); Lymphocytes % (auto) 10.1 %; Monocytes # (auto) 0.36 K/uL (0.11-0.59); Monocytes % (auto) 3.4 %; Neutrophils # (auto) 8.79 K/uL (1.40-6.50); Neutrophils % (auto) 83.9 %; Toxic Vacuolation 1+
[2023-01-26] MEDS: MAGNESIUM SULFATE / D5W 1 GM/100 ML BAG IV SCH ×2 (14:51→16:28)
[2023-01-26 15:02] LABS: Base Excess VBG -3.9 mEq/L; HCO3 VBG 25 mmol/L; Oxygen Saturation VBG < 60.0 %; PCO2 VBG 63 mmHg (38-50); PO2 VBG 15 mmHg; pH VBG 7.21 (7.36-7.41)
[2023-01-26 15:13] LABS: INR 1.4 (0.9-1.1); Partial Thromboplastin Ratio 1.3; Partial Thromboplastin Time 36.3 Seconds (21.0-31.0); Prothrombin Time 15.4 Seconds (9.0-12.0)
--- NOTE | 2023-01-26 15:48 | History & Physical Report ---
Date of Service January 26, 2023 Assessment & Plan (1) Sepsis: Plan: Sepsis due to suspected community-acquired pneumonia, hypoxic hypercapnic respiratory for Body weight 39 kg. 30 cc/kg = 1170cc. Patient received 1000 cc NSS bolus ER at time of hospitalist consultation. Additional 250 cc bolus pending Chest x-ray with airspace opacities suspicious for bilateral pneumonia VBG 7.21/63/15/25 consistent with acute respiratory acidosis. Patient moved to BiPAP. ABG to be repeated in 1 hour Due to severe level of illness patient switched from Zosyn to cefepime/doxycycline/vancomycin. Azithromycin deferred due to borderline QT. MRSA nare subsequently negative, vanc d/luis armando Blood cultures pending Sputum culture ordered - lactate >8 following hospitalist consultation. Following suscuscitation near normalized. Trend continued. No evidence of fluid overload on assessment. Clinically improved on BiPap. ABG with normalized pH, O2 slightly low --> BiPAP fiO2 increased. will follow on PCU. If deteriorates, gas worsens, or deteriorates clinically --> ICU. At time of reassessment is perfusing, an dimproving on NIV. (2) COPD (chronic obstructive pulmonary disease): Plan: COPD PFTs 2021 consistent with moderate obstruction, severely reduced DLCO at baseline Continue home inhalers Pneumonia management as a (3) Pneumonia: (4) BRITTNEY (acute kidney injury): Plan: BRITTNEY Baseline creatinine normal. Creatinine on admission 1.6 Fluids as noted, prerenal BRITTNEY Trend BMP daily SHUBHAM held (5) Elevated troponin: Plan: Elevated troponin, chronic diastolic heart failure, hypertension Last echo 12/2022 with EF 55-60% - Dry weight ~83lbs Troponin 277.6 on admission in the setting of sinus tachycardia and volume contraction. No chest pain. Suspect this is due to severe demand and sepsis, low suspicion for ACS. Trended. Chest pain-free at time of admission EKG: ST segment changes improved compared to prior. Sinus tachycardia. Subsequent rate downtrending following fluids. Suspect demand ischemia. Troponin trended. Echo pending Magnesium 1.3, repletion added. Optimize to 2.0 Plavix continued Metoprolol continued SHUBHAM held for BRITTNEY, Lasix held for BRITTNEY History of TIA Continue DAPT, statin (6) Malnutrition: Plan: Chronic malnutrition, poor p.o. intake Recent colonoscopy 01/18 for positive Cologuard. 6 mm and 18 mm polyp removed. Pathology resulted tubular adenomas Boost ordered, dietitian consulted INR 1.4, no history of liver disease denies alcohol use without significant transaminitis. Suspect nutritional deficiency, vitamin K given DVT prophylaxis: Heparin CODE STATUS: DNR/DNI, but would want intubation for declining respiratory status while reversible conditions are treated Disposition: PCU versus ICU Diet: Heart healthy History of Present Illness Primary Care Provider: Barrington Joshi MD Jennifer is a 62-year-old female with a past medical history of CAD, mitral valve bioprosthetic replacement, diastolic CHF, protein calorie malnutrition with BMI less than 16, TIA, paroxysmal SVT, past NSTEMI, and emphysema who was seen 2 weeks ago for near syncope, dizziness initially thought to be volume contracted but subsequently found to have CHF and improved with Lasix and was discharged after 2 days. She Lucius presents with poor p.o. intake, generalized weakness, and BRITTNEY. On admission with sinus tachycardia to 137, nonspecific ST depressions noted She is seen with her at bedside. She reports that she has a generally poor appetite, but this has been much worse and she has eaten almost nothing in the last 2 days. She received her flu shot on Monday, has had gradually diminished appetite since that time. She reports in the last 48 hours she has had increased fatigue, nonproductive cough, and shortness of breath. Was hypoxic to 50% at home. She normally uses 2 L of oxygen at night, does not need daytime oxygen improved after 4 L of oxygen but very fatigued. Denies abdominal pain in any point. Denies nausea/vomiting/diarrhea. Poor appetite Denies chest pain, chest pressure. She reports her right neck is stiff and painful due to lying laying curled up on her left side. Has a history of chronic cervical radiculopathy and this feels similar denies left-sided neck or jaw tenderness, left shoulder tenderness, chest pain She has never been on PPV for before Chronic medical problems: Diastolic heart failure. On Lasix 20 mg, metoprolol 12.5 mg, lisinopril 2.5 mg, spironolactone 25 mg, atorvastatin Past TIA: On Plavix COPD, moderate obstruction, severely reduced DLCO. 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 Has had increased wheezing Former tobacco use, reports that she has not used any tobacco products in the last year. Former around 1 pack/day for "a long time " Allergies Allergy/AdvReac Type Severity Reaction Status Date / Time aspirin Allergy Intermediate Hives Verified 01/19/23 11:26 hydrochlorothiazide Allergy Intermediate RASH/"Sick Verified 01/19/23 11:26 in stomach" trazodone AdvReac Severe Vomiting Verified 01/19/23 11:26 tramadol AdvReac Mild Nausea Verified 01/19/23 11:26 Home Medications Medication Instructions Recorded Confirmed Type nitroglycerin 0.4 mg sublingual See Rx Instructions .Route 11/09/18 01/19/23 History tablet .COMPLEX PRN Chest Pain albuterol sulfate 2.5 mg/3 mL See Rx Instructions .Route 01/17/19 01/19/23 History (0.083 %) solution for nebulization .COMPLEX PRN SOB albuterol sulfate 90 mcg/actuation See Rx Instructions .Route 01/17/19 01/19/23 History aerosol inhaler .COMPLEX PRN SOB ipratropium bromide 0.02 % See Rx Instructions .Route 01/17/19 01/19/23 History solution for inhalation .COMPLEX PRN SOB cholecalciferol (vitamin D3) 50 4,000 units PO QAM 05/21/19 01/19/23 History mcg (2,000 unit) tablet (Vitamin D3) cyanocobalamin (vitamin B-12) 1,000 mcg PO QAM 05/21/19 01/19/23 History 1,000 mcg tablet lisinopril 2.5 mg tablet 2.5 mg PO QAM #90 tabs 03/28/22 01/26/23 Rx atorvastatin 40 mg tablet 40 mg PO QPM #90 tabs 04/15/22 01/26/23 Rx clopidogrel 75 mg tablet 75 mg PO QPM #90 tabs 05/03/22 01/26/23 Rx gabapentin 300 mg capsule 600 mg PO BID #360 caps 06/09/22 01/26/23 Rx folic acid 1 mg tablet 1 mg PO QAM #90 tabs 11/24/22 01/26/23 Rx montelukast 10 mg tablet 10 mg PO QAM #90 tabs 12/08/22 01/26/23 Rx pantoprazole 40 mg tablet,delayed 40 mg PO BID #90 tabs 12/12/22 01/26/23 Rx release mirtazapine 15 mg tablet 15 mg PO HS 01/07/23 01/26/23 History furosemide 20 mg tablet (Lasix) 20 mg PO QAM 01/11/23 01/26/23 History potassium chloride 10 mEq 10 meq PO QAM 01/11/23 01/26/23 History capsule,extended release spironolactone 25 mg tablet 25 mg PO QAM 01/11/23 01/26/23 History oxycodone 5 mg tablet See Rx Instructions PO Q4H PRN 01/18/23 01/26/23 Rx pain #100 tabs fluticasone 250 mcg-salmeterol 50 See Rx Instructions .Route .COMPLEX 01/26/23 History mcg/dose blistr powdr for inhalation (Advair Diskus) lorazepam 0.5 mg tablet 0.5 mg PO HS PRN Other 01/26/23 01/26/23 History metoprolol succinate 25 mg 12.5 mg PO QAM 01/26/23 01/26/23 History tablet,extended release 24 hr trazodone 50 - 100 mg PO HS PRN Sleep 01/26/23 01/26/23 History Past Med/Surg History Medical History (Updated 01/26/23 @ 16:53 by Jason Upton MD) Abnormal EKG Acute on chronic diastolic CHF (congestive heart failure) recent diagnosis 01/07/23 at [facility]--pt states she is improving Anxiety Arthritis Bilateral pleural effusion hx CAD (coronary artery disease) Cholecystitis Chronic back pain + neck Chronic combined systolic (congestive) and diastolic (congestive) heart failure Chronic dyspnea oxygen prn Depression Diastolic CHF Elevated troponin Emphysema/COPD inhaler daily/prn, nebulizer prn Fibromyalgia GERD (gastroesophageal reflux disease) History of aortic valve disease s/p AVR (2005) History of nicotine dependence Hyperlipidemia Hyperlipidemia Hypertension Ischemic stroke Remote hx per records (?11/2018) Mitral valve disease s/p MVR (2005) On anticoagulant therapy plavix daily---MVR/AVR--follows with Krystian Valles On home oxygen therapy 2L O2 HS + PRN Osteoporosis Peripheral neuropathy Positive colorectal cancer screening using Cologuard test per pt reason for scheduled colonoscopy Positive colorectal cancer screening using Cologuard test Pulmonary hypertension Transient ischemic attack (TIA) 2005, 2019--no deficits, followed with Dr. Plummer (cleared) follows with PCP and cardiology Surgical History H/O: hysterectomy History of bronchoscopy History of colonoscopy History of esophagogastroduodenoscopy (EGD) History of heart valve replacement AVR (2005) History of lung biopsy Hx laparoscopic cholecystectomy (01/13/21) Laparoscopic Cholecystectomy Dr. Pulido 01-13-2021 S/P mitral valve replacement with bioprosthetic valve 2005 Family History Mother Slow to wake up after anesthesia Sister Family history of diabetes mellitus Father Stroke Other Coronary heart disease Denies family history of Ovarian cancer Prostate cancer Breast cancer Colorectal cancer Social History Smoking Status: Former smoker Tobacco Type: Cigarettes Age Started Using Tobacco: 18; packs per day: 0.5; Second Hand Exposure: Yes (FAMILY SMOKED); Do You Dip or Chew Tobacco: No; Hx Alcohol Use: No Hx Substance Use: No Preferred Language: Armenian Communication Ability: Effective Hearing Ability: Normal Director Of Online Education Required: No Beliefs That Will Affect Care: None marital status: Current Living Situation: Significant Other Current Living Situation Comment: lives with Sebastián haynes in a house current occupational status: unemployed and disabled How many Children do You have: 2 Feels Safe at Home: Yes Childhood Exposure to Second-Hand Smoke: Yes Diet: regular during the past year weight has: decreased > 10 lbs Dental Care, Regularly: No Physical Activity Frequency: 3-4 Times per Week Seatbelt Use: always Sunscreen Use: Yes Assistive Devices: Denture - Upper, Denture - Lower, Glasses and Oxygen - at Night Review of Systems Review of Systems: All systems reviewed & are unremarkable except as noted in Subjective Physical Exam Physical Exam: General: A&Ox3. NAD. Cooperative. Appears ill HEENT: Atraumatic, normocephalic. PERLAA. Vision/hearing grossly intact Pulm: diminished in the bases, coarse in midlung. No wheezing. +cough during exam. Symmetrical chest rise. No increased work of breathing. No respiratory distress. Cardiac: Tachycardic, regular. Radial pulses intact and symmetrical. Abdominal: Nontender, nondistended, soft. BS present. Results & Data Results & Data Vital Signs (Past 12 Hours) Vital Signs Temp Pulse Pulse Resp BP BP Pulse Ox 01/26/23 14:53 124 H 22 115/62 93 01/26/23 14:25 132 H 01/26/23 13:18 36.2 C L 64 20 89/51 L 100 O2 Del Method O2 Flow Rate 01/26/23 14:53 Nasal Cannula 4 01/26/23 14:25 01/26/23 13:18 Room Air PG Care Time/CCT Total # of Minutes Spent Total Time Spent with Patient: Total time spent is greater than 50% in coordination of care (as documented) at patient's floor/unit and/or counseling patient: Coding Level of Care Code 85668 INT INP/OBS CARE MIN Diagnoses Sepsis A41.9 COPD (chronic obstructive pulmonary disease) J44.9 Pneumonia J18.9 Laterality: bilateral Lung location: lower lobe of lung Pneumonia type: due to unspecified organism BRITTNEY (acute kidney injury) N17.9 Elevated troponin R77.8 Malnutrition E46 (3) Pneumonia Laterality: bilateral Lung location: lower lobe of lung Pneumonia type: due to unspecified organism Qualified Code(s): J18.9 - Pneumonia, unspecified organism
[2023-01-26] MEDS ORDERED: PHYTONADIONE 5 MG TAB PO STA (15:55)
[2023-01-26] MEDS ORDERED: VANCOMYCIN CONSULT ACTIVE PRN (16:31)
[2023-01-26] MEDS ORDERED: VANCOMYCIN HCL 1,000 MG in SODIUM CHLORIDE 0.9% 500 ML IV ONE (16:31)
[2023-01-26] MEDS ORDERED: VANCOMYCIN HCL 1,000 MG in SODIUM CHLORIDE 0.9% 250 ML IV STA (16:39)
[2023-01-26] MEDS ORDERED: CEFEPIME 2,000 MG in SYRINGE 0 ML IV SCH (16:45)
[2023-01-26] MEDS ORDERED: CEFEPIME 2,000 MG in SYRINGE 0 ML IV ONE (17:00)
[2023-01-26] MEDS ORDERED: DOXYCYCLINE HYCLATE 100 MG in DEXTROSE 5% MINI-B 100 ML IV ONE (17:00)
[2023-01-26 17:13] LABS: Adenovirus PCR Not Detected (NotDetected); Bordetella parapertussis PCR Not Detected (NotDetected); Bordetella pertussis PCR Not Detected (NotDetected); Chlamydia pneumoniae PCR Not Detected (NotDetected); Coronavirus 229E PCR Not Detected (NotDetected); Coronavirus CoV-2 (COVID19)PCR Not Detected (NotDetected); Coronavirus HKU1 PCR Not Detected (NotDetected); Coronavirus NL63 PCR Not Detected (NotDetected); Coronavirus OC43PCR Not Detected (NotDetected); Human Metapneumovirus PCR Not Detected (NotDetected); Influenza A PCR Not Detected (NotDetected); Influenza B PCR Not Detected (NotDetected); Mycoplasma pneumoniae PCR Not Detected (NotDetected); Parainfluenza Virus 1 PCR Not Detected (NotDetected); Parainfluenza Virus 2 PCR Not Detected (NotDetected); Parainfluenza Virus 3 PCR Not Detected (NotDetected); Parainfluenza Virus 4 PCR Not Detected (NotDetected); Respiratory Syncytial VirusPCR Not Detected (NotDetected)
[2023-01-26 17:16] LABS: Rhinovirus/Enterovirus PCR DETECTED (NotDetected)
[2023-01-26 17:54] LABS: Base Excess ABG -2.7 mEq/L (-9-1.8); HCO3 ABG 23 mmol/L (19-24); Oxygen Saturation ABG 96.9 % (90-95); PCO2 ABG 40 mmHg (35-46); PO2 ABG 79 mmHg (80-95); pH ABG 7.36 (7.35-7.45)
[2023-01-26 18:08] LABS: Allen Test Pos (Pos)
[2023-01-26] MEDS ORDERED: ACETAMINOPHEN 325 MG TAB PO PRN (18:11)
--- NOTE | 2023-01-26 18:55 | CT Scan Report ---
CT chest diagnostic wo con CLINICAL HISTORY: cough, hypoxia, suspect PNA TECHNIQUE: Multidetector row helical CT of the chest was performed. Coronal and sagittal reformations were obtained. Automated dose lowering techniques and/or adjustment according to patient size were u tilized for this exam. CT DOSE: 205.68 mGy.cm Comparison: Comparison is made to CT chest 05/23/2022 FINDINGS: Lungs and pleura: Prominent emphysema is seen. There is total opacification of the left lower lobe as well as consolidation in the right lower lobe and left upper lobe. Heart and pericardium: Mitral annular calcifications are seen. Cardiomegaly is noted with biatrial en largement. Vessels: Severe atherosclerotic changes in the aorta and coronary arteries. Pulmonary trunk measures 33 mm in diameter. Mediastinum and rolando: Multiple enlarged mediastinal lymph nodes measure up to 13 mm in diameter. Chest wall and lower neck: Unremarkable. Abdomen: Unremarkable. Bones: Degenerative changes in the thoracic spine. IMPRESSION: 1. Consolidations compatible with pneumonia in the left greater than right lower lungs with reactive lymphadenopathy. 2. Emphysema and pulmonary hypertension. ACT 112: Negative or not required by law. Electronically signed by: Kvng Sarmiento M.D. 01/26/2023 6:52 PM
[2023-01-26 19:15] LABS: Appearance Urine Clear (Clear); Bacteria Urine Automated Negative (Negative); Bilirubin Urine Negative (Negative); Blood Urine Negative (Negative); Color Urine Dark Yellow; Epithelial Cell Urine Auto >30 /lpf (0-5); Glucose Urine UA Negative (Negative); Ketones Urine Negative (Negative); Leukocyte Esterase Urine Trace (Negative); Nitrite Urine Negative (Negative); Protein Urine Trace (Negative); Urobilinogen Urine Negative (Negative)
[2023-01-26 19:32] LABS: Cast Urine Automated >30 /lpf (0-5); RBC Urine Automated 0-4 /hpf (0-4)
[2023-01-26] MEDS ORDERED: ALBUT/IPRATROP 3MG/0.5MG NEB 3 ML VIAL NEB PRN (21:58)
[2023-01-26 22:33] LABS: Base Excess VBG -1.1 mEq/L; HCO3 VBG 24 mmol/L; Oxygen Saturation VBG 87.9 %; PCO2 VBG 42 mmHg (38-50); PO2 VBG 57 mmHg; pH VBG 7.37 (7.36-7.41)
[2023-01-26] MEDS: ENOXAPARIN INJ 30 MG/0.3 ML SYR SQ SCH (23:45)
[2023-01-26] MEDS: PANTOprazole 40 MG TAB PO SCH (23:46)
[2023-01-26] MEDS: METOPROLOL SUCC 25MG EXT REL TAB PO SCH (23:46)
[2023-01-26] MEDS: CLOPIDOGREL BISULFATE 75 MG TAB PO SCH (23:47)
[2023-01-26] MEDS: ATORVASTATIN 40 MG TAB PO SCH (23:47)
[2023-01-26] MEDS ORDERED: oxyCODONE HCL IR 5 MG TAB (IMMEDIATE RELEASE) PO PRN (23:57)
[2023-01-27] MEDS: oxyCODONE HCL IR 5 MG TAB (IMMEDIATE RELEASE) PO PRN ×4 (00:14→18:18)
[2023-01-27 02:00] LABS: Base Excess VBG -1.8 mEq/L; HCO3 VBG 24 mmol/L; Oxygen Saturation VBG 92.6 %; PCO2 VBG 42 mmHg (38-50); PO2 VBG 66 mmHg; pH VBG 7.36 (7.36-7.41)
[2023-01-27] MEDS ORDERED: VANCOMYCIN HCL 500 MG in SODIUM CHLORIDE 0.9% 500 ML IV SCH (04:45)
[2023-01-27] MEDS ORDERED: CEFEPIME 1,000 MG in SYRINGE 0 ML IV SCH (05:00)
[2023-01-27 07:21] LABS: Base Excess VBG 0.1 mEq/L; HCO3 VBG 26 mmol/L; Oxygen Saturation VBG 95.1 %; PCO2 VBG 46 mmHg (38-50); PO2 VBG 72 mmHg; pH VBG 7.36 (7.36-7.41)
--- NOTE | 2023-01-27 08:10 | Hospitalist Progress Note ---
Date of Service January 27, 2023 Assessment & Plan (1) Severe sepsis: Plan: 2nd to b/l pneumonia s/p fluids at ER presentation along with other supportive care measures had significant lactic acidosis - now improved remains on broad-spectrum IV abx blood cx's negative to date (2) Acute respiratory failure with hypoxia and hypercapnia: Plan: 2nd to severe b/l pneumonia with collapse of the LLL was on BIPAP through the night due to refractory hypoxia admission blood gas with hypercapnea along with increased work of breathing leading to BIPAP usage seen by Dr Cole from pulmonary this am -- there appears to be mucous plugging in the LLL bronchus leading to collapse he advises d/c of BIPAP, changing to high-flow NC, and instituting aggressive pulmonary toilet added duonebs qid added mucinex added mucomyst added saline nebs added chest PT twice daily continue flutter valve continue IV antibiotics appreciate Dr Cole's consultation if no improvement come Monday a bronchoscopy would be undertaken for therapeutic purposes (3) COPD (chronic obstructive pulmonary disease): Plan: PFTs 2021 consistent with moderate obstruction, severely reduced DLCO at baseline No bronchospasm or wheezing this am -- defer on systemic steroids Added duonebs & other modalities as above cont home inhalers (4) Mucus plugging of bronchi: Plan: LLL bronchus see above (5) Pneumonia: Plan: b/l likely bacterial superinfection in the setting of rhinovirus infection cont cefepime added doxycycline deferring on MRSA coverage - MRSA BUSINESS SUPPORT SPECIALIST swab negative supportive care measures as above (6) Rhinovirus infection: Plan: droplet precautions supportive care (7) BRITTNEY (acute kidney injury): Plan: sepsis-associated ATN / dehydration Creatinine on admission 1.6 IMPROVED this am repeat BMP am cont to hold SHUBHAM inhibitor (8) Elevated troponin: Plan: likely 2nd to myocardial demand ischemia in the setting of severe sepsis no evidence of ACS despite her EKG findings recent echo with preserved EF and normal LV wall motion peak troponin 382 (9) NSVT (nonsustained ventricular tachycardia): Plan: 10-beat run about 0600 this am asymptomatic was lying in bed keep K close to 4 and mag close to 2 again recent echo with preserved EF and normal LV wall motion (10) Hypomagnesemia: Plan: repleted resolved (11) Severe protein-calorie malnutrition: Plan: recent colonoscopy with polyps but no colon cancer CT chest findings noted could consider CT abd/pelvis later in this stay to rule out other pathology if noting is found - chronic cachexia due to severe COPD?? (12) History of nicotine dependence: (13) CAD (coronary artery disease): Plan: 2005 cath - by report - nonobstructive CAD? stress echocardiogram 2013 - no ischemia troponin elevations noted EKG findings noted (T wave inversions anteroseptal leads today) echo with preserved EF and no regional WMA today ideally she has ischemic evaluation once she is over this illness cont plavix cont metoprolol cont lipitor (14) Hypertension: Plan: BPs satisfactory at this time cont beta jelly hold SHUBHAM (15) S/P mitral valve replacement with bioprosthetic valve: Plan: 2005 echo findings from today noted (16) History of aortic valve repair: Plan: 2005 findings from echo noted today (17) Abnormal EKG: Plan: deep T wave inversions anteroseptal leads last cath 2005? I do not have that report last stress test 2013? (18) Elevated INR: Plan: likely 2nd to vit K def s/p vit K yesterday will provide another 5mg today repeat INR am Plan DVT proph - lovenox will ultimately need PT/OT but too ill to request those consults today pt's significant other updated at bedside Admission and Anticipated Discharge Date Admission Date: January 26, 2023 Subjective events of the last 24-hour period noted remained on BIPAP overnight attempts to removed BIPAP this am were unsuccessful on 15 L oxymask she would desat to the low 80s thus BIPAP was placed back on tele - sinus tach, NSR, and one 10-beat run of NSVT during the visit she complains of ongoing cough/congestion/dyspnea although she "feels better" this am states she was only sick for "2 days" prior to coming to hospital denies nasal congestion/sore throat/ear pain/fevers her boyfriend arrived during the visit and he was coughing throughout patient denies any chest pain Review of Systems Review of Systems: gen - no fevers or chills; progressive weight loss cv - no orthopnea, no PND, no chest pain, no palpitations GI - no abd pain or nausea/emesis pulm - some sputum but it is limited Physical Exam Physical Exam: gen - looks ill, cachectic, bipap in place, awake/alert, mild tachypnea neck - no JVD mouth - MM dry heart - RRR, s1 s2, no obvious murmur lungs - decreased BS left base about 1/2 [address] up the posterior back; crackles R base; airation fair-good; no wheezes; mild tachypnea abd - soft NT ND BS+ ext - no ankle edema, pulses 2+ b/l psych - a/o x 3 Results & Data Results & Data Vital Signs (Past 12 Hours) Vital Signs Temp Pulse Pulse Resp BP BP BP 01/27/23 07:10 111 H 01/27/23 07:01 108 H 25 H 01/27/23 04:14 36.3 C L 117 H 18 103/62 01/27/23 02:43 112 H 21 01/26/23 23:33 01/26/23 23:38 36.3 C L 125 H 27 H 103/64 01/26/23 21:58 01/26/23 22:05 36 C L 121 H 26 H 114/70 01/26/23 21:56 116 H 23 01/26/23 20:15 110 H 20 01/26/23 20:15 130/63 Pulse Ox O2 Del Method FiO2 01/27/23 07:10 01/27/23 07:01 96 75 01/27/23 04:14 94 BiPAP 01/27/23 02:43 96 85 01/26/23 23:33 BiPAP 85 01/26/23 23:38 91 BiPAP 85 01/26/23 21:58 BiPAP 85 01/26/23 22:05 92 BiPAP 85 01/26/23 21:56 92 85 01/26/23 20:15 98 01/26/23 20:15 Laboratory Results Laboratory Results - last 24 hr 01/27/23 01/27/23 01/27/23 07:04 08:25 08:25 WBC 9.72 RBC 4.74 Hgb 13.6 D Hct 40.1 MCV 84.6 MCH 28.7 MCHC 33.9 RDW Std Deviation 43.6 RDW Coeff of Claudette 14.0 Plt Count 151 MPV 11.5 Immature Gran % (Auto) 1.1 Neut % (Auto) 91.1 Lymph % (Auto) 4.8 [place] % (Auto) 2.4 Eos % (Auto) 0.5 Baso % (Auto) 0.1 Neut # (Auto) 8.85 H Lymph # (Auto) 0.47 L [place] # (Auto) 0.23 Eos # (Auto) 0.05 Baso # (Auto) 0.01 Immature Gran # (Auto) 0.11 Toxic Vacuolation 3+ Echinocytes 3+ PT 13.0 H INR 1.2 H VBG pH 7.36 VBG pCO2 46 VBG pO2 72 VBG HCO3 26 VBG O2 Saturation 95.1 VBG Base Excess 0.1 Sodium Potassium Chloride Carbon Dioxide Anion Gap BUN Creatinine Est Cr Clr Drug Dosing Est GFR ( Amer) Est GFR (Non-Af Amer) BUN/Creatinine Ratio Glucose Calcium Phosphorus Magnesium Total Bilirubin AST ALT Alkaline Phosphatase Troponin I High Sens Total Protein Albumin Globulin Albumin/Globulin Ratio 01/27/23 01/27/23 01/27/23 08:25 08:25 08:25 WBC RBC Hgb Hct MCV MCH MCHC RDW Std Deviation RDW Coeff of Claudette Plt Count MPV Immature Gran % (Auto) Neut % (Auto) Lymph % (Auto) [place] % (Auto) Eos % (Auto) Baso % (Auto) Neut # (Auto) Lymph # (Auto) [place] # (Auto) Eos # (Auto) Baso # (Auto) Immature Gran # (Auto) Toxic Vacuolation Echinocytes PT INR VBG pH 7.31 L VBG pCO2 52 H VBG pO2 27 VBG HCO3 26 VBG O2 Saturation < 60.0 VBG Base Excess -0.8 Sodium 133 L Potassium 4.8 Chloride 100 Carbon Dioxide 25 Anion Gap 8 BUN 31 H Creatinine 0.97 D Est Cr Clr Drug Dosing 37.4 Est GFR ( Amer) 73.1 Est GFR (Non-Af Amer) 63.0 BUN/Creatinine Ratio 32.0 H Glucose 89 Calcium 7.6 L Phosphorus 3.8 Magnesium 1.9 Total Bilirubin 1.2 H AST 77 H ALT 33 Alkaline Phosphatase 72 Troponin I High Sens 197.2 H* D Total Protein 5.9 L D Albumin 2.9 L Globulin 3.0 Albumin/Globulin Ratio 1.0 PG Care Time/CCT Total # of Minutes Spent Total Time Spent with Patient: Total time spent is greater than 50% in coordination of care (as documented) at patient's floor/unit and/or counseling patient: Coding Level of Care Code 88726 SUB INP/OBS CARE 3/50MIN Diagnoses Severe sepsis A41.9; R65.20 Acute respiratory failure with hypoxia and hypercapnia J96.01; J96.02 COPD (chronic obstructive pulmonary disease) J44.9 Mucus plugging of bronchi T17.500A Pneumonia J18.9 Laterality: bilateral Lung location: lower lobe of lung Pneumonia type: due to unspecified organism Rhinovirus infection B34.8 BRITTNEY (acute kidney injury) N17.9 Elevated troponin R77.8 NSVT (nonsustained ventricular tachycardia) I47.29 Hypomagnesemia E83.42 Severe protein-calorie malnutrition E43 History of nicotine dependence Z87.891 CAD (coronary artery disease) I25.10 Hypertension I10 S/P mitral valve replacement with bioprosthetic valve Z95.3 History of aortic valve repair Z98.890; Z86.79 Abnormal EKG R94.31 Elevated INR R79.1 (5) Pneumonia Laterality: bilateral Lung location: lower lobe of lung Pneumonia type: due to unspecified organism Qualified Code(s): J18.9 - Pneumonia, unspecified organism
[2023-01-27] MEDS: METOPROLOL SUCC 25MG EXT REL TAB PO SCH (08:24)
[2023-01-27] MEDS: MONTELUKAST SODIUM 10 MG TABLET PO SCH (08:24)
[2023-01-27] MEDS: PANTOprazole 40 MG TAB PO SCH ×2 (08:24→20:29)
[2023-01-27 08:53] LABS: Base Excess VBG -0.8 mEq/L; HCO3 VBG 26 mmol/L; Oxygen Saturation VBG < 60.0 %; PCO2 VBG 52 mmHg (38-50); PO2 VBG 27 mmHg; pH VBG 7.31 (7.36-7.41)
[2023-01-27 08:57] LABS: Hematocrit (blood only) 40.1 % (37.0-47.0); Hemoglobin 13.6 g/dl (12.0-16.0); Mean Corpuscular Hemoglobin 28.7 pg (25.0-34.0); Mean Corpuscular Hgb Conc 33.9 g/dL (32.0-36.0); Mean Corpuscular Volume 84.6 fL (80.0-100.0); Mean Platelet Volume 11.5 fL (9.4-12.4); Platelet Count 151 K/uL (130-400); RDW Standard Deviation 43.6 fL (36.4-46.3); Red Blood Count 4.74 M/uL (4.20-5.40); White Blood Count 9.72 K/ul (4.8-10.8)
[2023-01-27] MEDS ORDERED: FLUTICASONE/VILANTEROL 100/25MCG 14 PUFFS/INHALER INH SCH (09:00)
[2023-01-27] MEDS ORDERED: guaiFENesin 600 MG TABCR PO SCH (09:00)
[2023-01-27 09:20] LABS: INR 1.2 (0.9-1.1)
[2023-01-27 09:27] LABS: Albumin Level 2.9 gm/dl (3.4-5.0); Bilirubin,Total 1.2 mg/dl (0.2-1.0); Calcium 7.6 mg/dl (8.6-10.3); Creatinine Clr Calc Pharmacy 37.4 ml/min; Est GFR (African American) 73.1 ml/min; Magnesium 1.9 mg/dl (1.7-2.4); Phosphorus 3.8 mg/dl (2.5-4.9); Potassium 4.8 mmol/L (3.5-5.1); Total Protein 5.9 gm/dl (6.0-8.3)
[2023-01-27 09:30] LABS: Basophils # (auto) 0.01 K/uL (0.00-0.20); Basophils % (auto) 0.1 %; Echinocytes 3+; Eosinophils # (auto) 0.05 K/uL (0.00-0.50); Eosinophils % (auto) 0.5 %; Immature Granulocytes # (auto) 0.11 K/uL (0.01-0.20); Immature Granulocytes % (auto) 1.1 %; Lymphocytes # (auto) 0.47 K/uL (1.20-3.40); Lymphocytes % (auto) 4.8 %; Monocytes # (auto) 0.23 K/uL (0.11-0.59); Monocytes % (auto) 2.4 %; Neutrophils # (auto) 8.85 K/uL (1.40-6.50); Neutrophils % (auto) 91.1 %; Toxic Vacuolation 3+
[2023-01-27] MEDS: DOXYCYCLINE HYCLATE 100 MG in DEXTROSE 5% MINI-B 100 ML IV SCH ×2 (09:53→20:31)
[2023-01-27] MEDS: ALBUT/IPRATROP 3MG/0.5MG NEB 3 ML VIAL NEB SCH ×4 (10:40→19:43)
[2023-01-27] MEDS: SODIUM CHLOR 7% 4 ML NEB NEB SCH ×2 (10:41→19:42)
[2023-01-27] MEDS ORDERED: PHYTONADIONE 5 MG TAB PO ONE (11:09)
--- NOTE | 2023-01-27 12:56 | Pulmonary Consultation ---
Date of Consultation January 27, 2023 Assessment & Plan (1) Acute respiratory failure with hypoxia and hypercapnia: (2) COPD (chronic obstructive pulmonary disease): (3) Pneumonia: Laterality: bilateral Lung location: lower lobe of lung Pneumonia type: due to unspecified organism Qualified Code(s): J18.9 - Pneumonia, unspecified organism (4) Atelectasis: Plan Impression: 62-year-old female with moderate obstructive lung disease admitted now with left lower lobe pneumonia and severe mucous plugging of the left lower lobe bronchi. She was initially hypercarbic and required BiPAP. Unfortunately this is a difficult situation as BiPAP is not going to allow the patient to be able to clear respiratory secretions and without clearing her secretions it is unlikely that her CO2 and O2 levels will improve. Recommendations: 1. Mucous plugging: We will aggressively treat the patient at this point time with nebulized Mucomyst as well as hypertonic saline. She already has a flutter valve. We will initiate chest physiotherapy as well. The importance of expectorating phlegm was stressed to the patient and her . Unfortunately the patient is consuming a regular diet so bronchoscopy is not possible today. If conservative measures over the weekend fail to result in improved aeration, consideration for bronchoscopy on Monday might be appropriate. 2. COPD: Do not think this is an exacerbation so I am not sure steroids are warranted. Continue with Perforomist and budesonide. We will add Incruse. Okay to use DuoNebs as needed. 3. Hypoxemic and hypercarbic respiratory failure: Acute on chronic. See comments above. We will try high flow oxygen. We will try and keep oxygen saturations around 89 to 90% in light of her propensity for hypercarbia. If the patient should fail, noninvasive positive pressure ventilation could be considered although again it is unclear whether we will be able to improve her gas exchange until were able to get her left lower lobe aerated to some degree. If she is intubated, bronchoscopy could be performed at that time. 4. 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 The above recommendations and plan were discussed with the patient and her at bedside as well as with respiratory therapy and the bedside nurse. We will continue to follow with you. Feel free to contact us with questions or concerns History of Present Illness Attending Physician: Juan Ramon Gill MD History of Present Illness Asked by hospitalist to evaluate this patient with known COPD and an abnormal CT scan. History is obtained from discussion with the patient and her at bedside as well as review the electronic medical record. Patient is a 62-year-old female who quit smoking about 10 years ago after about a [id number] history. She has known COPD and has been oxygen dependent for the last several years. She is followed in the outpatient setting by Dr. Ramsay and was last seen in June. At that point time she was maintained on Advair and Spiriva. She is also been followed in the heart failure clinic as she has an extensive cardiac history as well. Patient presented to the emergency room 01/26/2023 with generalized weakness and poor p.o. intake. She was felt to be septic due to pneumonia. She was initially placed on BiPAP. She received doxycycline cefepime and vancomycin in the emergency room. Her initial lactate was 8 after resuscitation, it normalized. She was admitted to the floor and had a CT scan performed which demonstrated cutoff sign of the left lower lobe bronchus with dense consolidation distal. The patient does feel congested. She is unable to expectorate significant phlegm. She not having any chest pain. When I assessed the patient, she had come off BiPAP and was finishing lunch. She does not appear to in any acute distress but does appear chronically ill. Allergies Allergy/AdvReac Type Severity Reaction Status Date / Time aspirin Allergy Intermediate Hives Verified 01/19/23 11:26 hydrochlorothiazide Allergy Intermediate RASH/"Sick Verified 01/19/23 11:26 in stomach" trazodone AdvReac Severe Vomiting Verified 01/19/23 11:26 tramadol AdvReac Mild Nausea Verified 01/19/23 11:26 Home Medications Medication Instructions Recorded Confirmed Type nitroglycerin 0.4 mg sublingual See Rx Instructions .Route 11/09/18 01/19/23 History tablet .COMPLEX PRN Chest Pain albuterol sulfate 2.5 mg/3 mL See Rx Instructions .Route 01/17/19 01/19/23 History (0.083 %) solution for nebulization .COMPLEX PRN SOB albuterol sulfate 90 mcg/actuation See Rx Instructions .Route 01/17/19 01/19/23 History aerosol inhaler .COMPLEX PRN SOB ipratropium bromide 0.02 % See Rx Instructions .Route 01/17/19 01/19/23 History solution for inhalation .COMPLEX PRN SOB cholecalciferol (vitamin D3) 50 4,000 units PO QAM 05/21/19 01/19/23 History mcg (2,000 unit) tablet (Vitamin D3) cyanocobalamin (vitamin B-12) 1,000 mcg PO QAM 05/21/19 01/19/23 History 1,000 mcg tablet lisinopril 2.5 mg tablet 2.5 mg PO QAM #90 tabs 03/28/22 01/26/23 Rx atorvastatin 40 mg tablet 40 mg PO QPM #90 tabs 04/15/22 01/26/23 Rx clopidogrel 75 mg tablet 75 mg PO QPM #90 tabs 05/03/22 01/26/23 Rx gabapentin 300 mg capsule 600 mg PO BID #360 caps 06/09/22 01/26/23 Rx folic acid 1 mg tablet 1 mg PO QAM #90 tabs 11/24/22 01/26/23 Rx montelukast 10 mg tablet 10 mg PO QAM #90 tabs 12/08/22 01/26/23 Rx pantoprazole 40 mg tablet,delayed 40 mg PO BID #90 tabs 12/12/22 01/26/23 Rx release mirtazapine 15 mg tablet 15 mg PO HS 01/07/23 01/26/23 History furosemide 20 mg tablet (Lasix) 20 mg PO QAM 01/11/23 01/26/23 History potassium chloride 10 mEq 10 meq PO QAM 01/11/23 01/26/23 History capsule,extended release spironolactone 25 mg tablet 25 mg PO QAM 01/11/23 01/26/23 History oxycodone 5 mg tablet See Rx Instructions PO Q4H PRN 01/18/23 01/26/23 Rx pain #100 tabs fluticasone 250 mcg-salmeterol 50 See Rx Instructions .Route .COMPLEX 01/26/23 History mcg/dose blistr powdr for inhalation (Advair Diskus) lorazepam 0.5 mg tablet 0.5 mg PO HS PRN Other 01/26/23 01/26/23 History metoprolol succinate 25 mg 12.5 mg PO QAM 01/26/23 01/26/23 History tablet,extended release 24 hr trazodone 50 - 100 mg PO HS PRN Sleep 01/26/23 01/26/23 History Patient History Medical History (Updated 01/27/23 @ 12:49 by Omer Cole MD) Abnormal EKG Acute on chronic diastolic CHF (congestive heart failure) recent diagnosis 01/07/23 at [facility]--pt states she is improving Anxiety Arthritis Bilateral pleural effusion hx CAD (coronary artery disease) Cholecystitis Chronic back pain + neck Chronic combined systolic (congestive) and diastolic (congestive) heart failure Chronic dyspnea oxygen prn Depression Diastolic CHF Elevated troponin Emphysema/COPD inhaler daily/prn, nebulizer prn Fibromyalgia GERD (gastroesophageal reflux disease) History of aortic valve disease s/p AVR (2005) History of nicotine dependence Hyperlipidemia Hyperlipidemia Hypertension Ischemic stroke Remote hx per records (?11/2018) Mitral valve disease s/p MVR (2005) On anticoagulant therapy plavix daily---MVR/AVR--follows with Krystian Valles On home oxygen therapy 2L O2 HS + PRN Osteoporosis Peripheral neuropathy Positive colorectal cancer screening using Cologuard test per pt reason for scheduled colonoscopy Positive colorectal cancer screening using Cologuard test Pulmonary hypertension Transient ischemic attack (TIA) 2005, 2019--no deficits, followed with Dr. Plummer (cleared) follows with PCP and cardiology Surgical History (Updated 01/27/23 @ 08:13 by Juan Ramon Gill MD) H/O: hysterectomy History of bronchoscopy History of colonoscopy History of esophagogastroduodenoscopy (EGD) History of heart valve replacement AVR (2005) History of lung biopsy Hx laparoscopic cholecystectomy (01/13/21) Laparoscopic Cholecystectomy Dr. Pulido 01-13-2021 S/P mitral valve replacement with bioprosthetic valve 2005 Family History Mother Slow to wake up after anesthesia Sister Family history of diabetes mellitus Father Stroke Other Coronary heart disease Denies family history of Ovarian cancer Prostate cancer Breast cancer Colorectal cancer Social History Smoking Status: Former smoker Tobacco Type: Cigarettes Age Started Using Tobacco: 18; packs per day: 0.5; Smoking End Date: 2019; Second Hand Exposure: Yes (FAMILY SMOKED); Do You Dip or Chew Tobacco: No; Hx Alcohol Use: No Hx Substance Use: No Preferred Language: Welsh Communication Ability: Effective Hearing Ability: Normal Church History Professor Required: No Beliefs That Will Affect Care: None marital status: Current Living Situation: Family Current Living Situation Comment: son lives w/ her current occupational status: unemployed and disabled How many Children do You have: 2 Other Information That Helps Us Care for You: No Feels Safe at Home: Yes Safety Concerns: Feels Safe At This Time Childhood Exposure to Second-Hand Smoke: Yes Diet: regular during the past year weight has: decreased > 10 lbs Dental Care, Regularly: No Physical Activity Frequency: 3-4 Times per Week Seatbelt Use: always Sunscreen Use: Yes Assistive Devices: Oxygen - at Night Assistive Devices Comment: oxygen as needed at home Review of Systems Review of Systems: please refer to hospitalist notes and H&P Physical Exam Constitutional: well developed, + cachectic and + frail appearing; + not well nourished and no acute distress Eyes: PERRL, conjunctivae normal, anicteric sclerae ENMT: external ear and nose normal, oropharynx normal Neck: trachea midline, no thyromegaly Respiratory: normal respiratory effort; no respiratory distress Auscultation: + diminished lung sounds and + crackles (bibasal); no wheezes Cardiovascular: Rate/Rhythm: regular rate and regular rhythm Heart Sounds: no murmur Extremities: normal capillary refill and + pedal edema (1+ pitting in feet only); no calf tenderness Gastrointestinal (Abdomen): normal bowel sounds, soft, nontender, no hepatosplenomegaly Musculoskeletal: no cyanosis or clubbing, extremities motor strength 5/5 Skin: no rashes, warm and dry Neurologic: moves all extremities and awake; no focal motor deficits (no unilateral deficit) and not confused Psychiatric: A+Ox3, euthymic affect Results & Data Results & Data Vital Signs (Past 12 Hours) Vital Signs Temp Pulse Pulse Resp BP BP Pulse Ox 01/27/23 11:37 36.3 C L 109 H 20 107/59 L 96 01/27/23 10:54 01/27/23 10:41 104 H 22 94 01/27/23 10:41 104 H 22 94 01/27/23 08:21 36.5 C 113 H 24 108/68 90 01/27/23 07:10 111 H 01/27/23 07:01 108 H 25 H 96 01/27/23 04:14 36.3 C L 117 H 18 103/62 94 01/27/23 02:43 112 H 21 96 O2 Del Method O2 Flow Rate FiO2 01/27/23 11:37 BiPAP 01/27/23 10:54 Oxymask, BiPAP 01/27/23 10:41 75 01/27/23 10:41 BiPAP 75 01/27/23 08:21 Nasal Cannula 6 01/27/23 07:10 01/27/23 07:01 75 01/27/23 04:14 BiPAP 01/27/23 02:43 85 Critical Care Results & Data Vital Signs (Past 12 Hours) Vital Signs Temp Pulse Pulse Resp BP BP Pulse Ox 01/27/23 11:37 36.3 C L 109 H 20 107/59 L 96 01/27/23 10:54 01/27/23 10:41 104 H 22 94 01/27/23 10:41 104 H 22 94 01/27/23 08:21 36.5 C 113 H 24 108/68 90 01/27/23 07:10 111 H 01/27/23 07:01 108 H 25 H 96 01/27/23 04:14 36.3 C L 117 H 18 103/62 94 01/27/23 02:43 112 H 21 96 O2 Del Method O2 Flow Rate FiO2 01/27/23 11:37 BiPAP 01/27/23 10:54 Oxymask, BiPAP 01/27/23 10:41 75 01/27/23 10:41 BiPAP 75 01/27/23 08:21 Nasal Cannula 6 01/27/23 07:10 01/27/23 07:01 75 01/27/23 04:14 BiPAP 01/27/23 02:43 85 Lab & Micro Results (Past 24 Hours) RBC 4.74 M/uL (4.20-5.40) 01/27/23 WBC 9.72 K/ul (4.8-10.8) 01/27/23 Hgb 13.6 g/dl (12.0-16.0) 01/27/23 Hct 40.1 % (37.0-47.0) 01/27/23 MCV 84.6 fL (80.0-100.0) 01/27/23 MCH 28.7 pg (25.0-34.0) 01/27/23 MCHC 33.9 g/dL (32.0-36.0) 01/27/23 RDW Standard Deviation 43.6 fL (36.4-46.3) 01/27/23 RDW Coefficient of Variation 14.0 % (11.5-14.5) 01/27/23 Plt Count 151 K/uL (130-400) 01/27/23 MPV 11.5 fL (9.4-12.4) 01/27/23 Neutrophils (%) (Auto) 91.1 % 01/27/23 Lymphocytes (%) (Auto) 4.8 % 01/27/23 Monocytes # (Auto) 0.23 K/uL (0.11-0.59) 01/27/23 Eosinophils # (Auto) 0.05 K/uL (0.00-0.50) 01/27/23 Immature Granulocyte % (Auto) 1.1 % 01/27/23 Neutrophils # (Auto) 8.85 K/uL (1.40-6.50) H 01/27/23 Lymphocytes # (Auto) 0.47 K/uL (1.20-3.40) L 01/27/23 Monocytes # (Auto) 0.23 K/uL (0.11-0.59) 01/27/23 Eosinophils # (Auto) 0.05 K/uL (0.00-0.50) 01/27/23 Basophils # (Auto) 0.01 K/uL (0.00-0.20) 01/27/23 Immature Granulocyte # (Auto) 0.11 K/uL (0.01-0.20) 3 Echinocytes 3+ 01/27/23 Toxic Vacuolation 3+ 01/27/23 Dohle Bodies 1+ 01/26/23 Na 133 mmol/L (136-145) L 01/27/23 K 4.8 mmol/L (3.5-5.1) 01/27/23 Cl 100 mmol/L (98-107) 01/27/23 CO2 25 mmol/L (21-32) 01/27/23 Anion Gap 8 (3-11) 01/27/23 BUN 31 mg/dl (6-23) H 01/27/23 Creatinine 0.97 mg/dl (0.6-1.2) 01/27/23 Estimated GFR ( Amer) 73.1 ml/min 01/27/23 Estimated GFR (Non-Af Amer) 63.0 ml/min 01/27/23 BUN/Creatinine Ratio 32.0 (10-20) H 01/27/23 Glu 89 mg/dl (70-99(Fasting)) 01/27/23 Ca 7.6 mg/dl (8.6-10.3) L 01/27/23 Phosphorus Level 3.8 mg/dl (2.5-4.9) 01/27/23 Total Bilirubin 1.2 mg/dl (0.2-1.0) H 01/27/23 AST 77 U/L (13-39) H 01/27/23 ALT 33 U/L (7-52) 01/27/23 Alkaline Phosphatase 72 U/L (34-104) 01/27/23 TP 5.9 gm/dl (6.0-8.3) L 01/27/23 Albumin 2.9 gm/dl (3.4-5.0) L 01/27/23 Globulin 3.0 gm/dl (2.5-4.0) 01/27/23 Albumin/Globulin Ratio 1.0 (0.9-2) 01/27/23 Mg 1.9 mg/dl (1.7-2.4) 01/27/23 08:25 Calcium Level 7.6 mg/dl (8.6-10.3) L 01/27/23 08:25 Prothromb Time International Ratio 1.2 (0.9-1.1) H 01/27/23 08 :25 Venous Blood pH 7.31 (7.36-7.41) L 01/27/23 08:25 Venous Blood Partial Pressure CO2 52 mmHg (38-50) H 01/27/23 08 :25 Venous Blood Partial Pressure O2 27 mmHg 01/27/23 08:25 Venous Blood HCO3 26 mmol/L 01/27/23 08:25 Venous Blood Base Excess -0.8 mEq/L 01/27/23 08:25 Venous Blood Oxygen Saturation < 60.0 % 01/27/23 08:25 Arterial Blood pH 7.36 (7.35-7.45) 01/26/23 17:41 Arterial Blood Partial Pressure CO2 40 mmHg (35-46) 01/26/23 17 :41 Arterial Blood Partial Pressure O2 79 mmHg (80-95) L 01/26/23 1 7:41 Arterial Blood HCO3 23 mmol/L (19-24) 01/26/23 17:41 Arterial Blood Base Excess -2.7 mEq/L (-9-1.8) 01/26/23 17:41 Arterial Blood Oxygen Saturation 96.9 % (90-95) H 01/26/23 17:4 1 Blood Gas Oxygen Given 100% FiO2 01/26/23 17:41 Herbert Test Pos (Pos) 01/26/23 17:41 Microbiology 01/27/23 Unknown Gram Stain - Final Sputum, Expectorated Diagnostic Findings (Past 24 Hours) Chest X-Ray 01/26/23 13:20 XR chest 1V portable CLINICAL HISTORY: Decreased oral intake, neck pain TECHNIQUE: Single frontal radiograph of the chest was obtained. Comparison: Comparison is made to chest radiograph 01/09/2023 FINDINGS: Median sternotomy wires are unchanged. Cardiomegaly is noted. Bilateral lower lung predominant airspace opacities are seen. Small left pleural effusion cannot be excluded. IMPRESSION: Bilateral lower lung predominant airspace opacities which may represent atelectasis, pneumonia, and/or aspiration. Small left pleural effusion cannot be excluded. ACT 112: Negative or not required by law. Electronically signed by: Kvng Sarmiento M.D. 01/26/2023 2:[address] 01/26/23 16:14 CT chest diagnostic wo con CLINICAL HISTORY: cough, hypoxia, suspect PNA TECHNIQUE: Multidetector row helical CT of the chest was performed. Coronal and sagittal reformations were obtained. Automated dose lowering techniques and/or adjustment according to patient size were utilized for this exam. CT DOSE: 205.68 mGy.cm Comparison: Comparison is made to CT chest 05/23/2022 FINDINGS: Lungs and pleura: Prominent emphysema is seen. There is total opacification of the left lower lobe as well as consolidation in the right lower lobe and left upper lobe. Heart and pericardium: Mitral annular calcifications are seen. Cardiomegaly is noted with biatrial enlargement. Vessels: Severe atherosclerotic changes in the aorta and coronary arteries. Pulmonary trunk measures 33 mm in diameter. Mediastinum and rolando: Multiple enlarged mediastinal lymph nodes measure up to 13 mm in diameter. Chest wall and lower neck: Unremarkable. Abdomen: Unremarkable. Bones: Degenerative changes in the thoracic spine. IMPRESSION: 1. Consolidations compatible with pneumonia in the left greater than right lower lungs with reactive lymphadenopathy. 2. Emphysema and pulmonary hypertension. ACT 112: Negative or not required by law. Electronically signed by: Kvng Sarmiento M.D. 01/26/2023 6:52 PM I & O Totals 24 Hours 01/26/23 01/27/23 01/28/23 06:59 06:59 06:59 Intake Total 2076.667 / 2076.667 100 / 100 Output Total 275 / 275 Balance 1801.667 / 1801.667 100 / 100 Cumulative 01/26/23 13:07 thru 01/27/23 12:31 Intake Total 2176.667 Output Total 275 Balance 1901.667 RT Ventilator Mngmt (Last Documented) Ventilator Ordered Settings Respiratory Rate 20 01/27/23 11:37 Fraction of Inspired Oxygen 75 01/27/23 10:41 Ventilator - PT Measurements Respiratory Rate 20 PG Care Time/CCT Total # of Minutes Spent Total Time Spent with Patient: Total time spent is greater than 50% in coordination of care (as documented) at patient's floor/unit and/or counseling patient: Coding Level of Care Code 79625 IN/OBS CONSULT LVL 4,60M Diagnoses Acute respiratory failure with hypoxia and hypercapnia J96.01; J96.02 COPD (chronic obstructive pulmonary disease) J44.9 Pneumonia J18.9 Laterality: bilateral Lung location: lower lobe of lung Pneumonia type: due to unspecified organism Atelectasis J98.11
[2023-01-27] MEDS ORDERED: FORMOTEROL 20 MCG/2 ML VIAL NEB SCH (13:00)
[2023-01-27] MEDS: ACETYLCYSTEINE 10% INHAL SOLN 4 ML **DISPENSED BY RESP. INH SCH ×2 (13:04→19:42)
[2023-01-27] MEDS: UMECLIDINIUM BROMIDE 62.5MCG/BLISTER 7 PUFFS/INHALER INH SCH (13:42)
[2023-01-27] MEDS: LIDOCAINE 5% 1 PATCH TD SCH (13:42)
--- NOTE | 2023-01-27 14:20 | XCELERA ---
[id number]
[2023-01-27] MEDS: CEFEPIME 2,000 MG in SYRINGE 0 ML IV SCH (17:31)
[2023-01-27] MEDS: FORMOTEROL 20 MCG/2 ML VIAL NEB SCH (19:42)
[2023-01-27] MEDS: CLOPIDOGREL BISULFATE 75 MG TAB PO SCH (20:28)
[2023-01-27] MEDS: ATORVASTATIN 40 MG TAB PO SCH (20:29)
[2023-01-27] MEDS: guaiFENesin 600 MG TABCR PO SCH (20:29)
[2023-01-27] MEDS: ENOXAPARIN INJ 30 MG/0.3 ML SYR SQ SCH (20:30)
[2023-01-27] MEDS ORDERED: oxyCODONE HCL IR 5 MG TAB (IMMEDIATE RELEASE) PO STA (21:56)
[2023-01-28] MEDS: oxyCODONE HCL IR 5 MG TAB (IMMEDIATE RELEASE) PO PRN ×3 (00:24→12:24)
[2023-01-28] MEDS: CEFEPIME 2,000 MG in SYRINGE 0 ML IV SCH ×2 (05:46→18:55)
[2023-01-28 06:02] LABS: Hematocrit (blood only) 42.6 % (37.0-47.0); Hemoglobin 14.2 g/dl (12.0-16.0); Mean Corpuscular Hemoglobin 28.4 pg (25.0-34.0); Mean Corpuscular Hgb Conc 33.3 g/dL (32.0-36.0); Mean Corpuscular Volume 85.2 fL (80.0-100.0); Mean Platelet Volume 10.6 fL (9.4-12.4); Platelet Count 143 K/uL (130-400); RDW Coefficient of Variation 13.9 % (11.5-14.5); RDW Standard Deviation 43.8 fL (36.4-46.3); White Blood Count 9.96 K/ul (4.8-10.8)
[2023-01-28 06:23] LABS: BUN Creatinine Ratio 39.1 (10-20); Creatinine Clr Calc Pharmacy 56.7 ml/min; Est GFR (African American) 111.6 ml/min; Est GFR (Non-African American) 96.3 ml/min; Potassium 4.2 mmol/L (3.5-5.1)
[2023-01-28 06:28] LABS: Prothrombin Time 10.6 Seconds (9.0-12.0)
[2023-01-28] MEDS: ACETYLCYSTEINE 10% INHAL SOLN 4 ML **DISPENSED BY RESP. INH SCH ×2 (07:23→19:56)
[2023-01-28] MEDS: SODIUM CHLOR 7% 4 ML NEB NEB SCH ×2 (07:23→19:56)
[2023-01-28] MEDS: FORMOTEROL 20 MCG/2 ML VIAL NEB SCH ×2 (07:23→19:56)
[2023-01-28] MEDS: ALBUT/IPRATROP 3MG/0.5MG NEB 3 ML VIAL NEB SCH ×4 (07:24→19:56)
[2023-01-28] MEDS: LIDOCAINE 5% 1 PATCH TD SCH (08:38)
[2023-01-28] MEDS: METOPROLOL SUCC 25MG EXT REL TAB PO SCH (08:39)
[2023-01-28] MEDS: MONTELUKAST SODIUM 10 MG TABLET PO SCH (08:39)
[2023-01-28] MEDS: guaiFENesin 600 MG TABCR PO SCH ×2 (08:39→20:26)
[2023-01-28] MEDS: UMECLIDINIUM BROMIDE 62.5MCG/BLISTER 7 PUFFS/INHALER INH SCH (08:39)
[2023-01-28] MEDS: PANTOprazole 40 MG TAB PO SCH ×2 (08:39→20:26)
[2023-01-28] MEDS: DOXYCYCLINE HYCLATE 100 MG in DEXTROSE 5% MINI-B 100 ML IV SCH ×2 (08:39→20:22)
--- NOTE | 2023-01-28 09:06 | Pulmonology Progress Note ---
Date of Service January 28, 2023 Assessment & Plan (1) Acute respiratory failure with hypoxia and hypercapnia: (2) COPD (chronic obstructive pulmonary disease): (3) Pneumonia: Laterality: bilateral Lung location: lower lobe of lung Pneumonia type: due to unspecified organism Qualified Code(s): J18.9 - Pneumonia, unspecified organism (4) Atelectasis: Plan Impression: 62-year-old female with moderate obstructive lung disease admitted now with left lower lobe pneumonia and severe mucous plugging of the left lower lobe bronchi. She appears clinically improved with aggressive pulmonary toilet Recommendations: 1. Mucous plugging: Continue nebulized Mucomyst as well as hypertonic saline. Continue flutter valve and chest physiotherapy as well. If conservative measures over the weekend fail to result in improved aeration, consideration for bronchoscopy on Monday might be appropriate. Check chest x-ray in a.m. 2. COPD: No indication for steroids. Continue with Perforomist and budesonide. Continue incruse. Okay to use DuoNebs as needed. 3. Hypoxemic and hypercarbic respiratory failure: Acute on chronic. Continue t o avoid hyperoxia Blessing. Oxygen saturations of 88 to 90% are acceptable. 4. 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 We will continue to follow Admission and Anticipated Discharge Date Admission Date: January 26, 2023 Subjective Patient seen and examined. EMR reviewed. Review of Systems Review of Systems: All systems reviewed & are unremarkable except as noted in Subjective Physical Exam 2 Constitutional: well developed, + cachectic and + frail appearing; + not well nourished and no acute distress Eyes: PERRL, conjunctivae normal, anicteric sclerae ENMT: external ear and nose normal, oropharynx normal Neck: trachea midline, no thyromegaly Respiratory: normal respiratory effort; no respiratory distress Auscultation: + diminished lung sounds and + crackles (bibasal); no wheezes Cardiovascular: Rate/Rhythm: regular rate and regular rhythm Heart Sounds: no murmur Extremities: normal capillary refill and + pedal edema (1+ pitting in feet only); no calf tenderness Gastrointestinal (Abdomen): normal bowel sounds, soft, nontender, no hepatosplenomegaly Musculoskeletal: no cyanosis or clubbing, extremities motor strength 5/5 Skin: no rashes, warm and dry Neurologic: moves all extremities and awake; no focal motor deficits (no unilateral deficit) and not confused Psychiatric: A+Ox3, euthymic affect Results & Data Results & Data Vital Signs (Past 12 Hours) Vital Signs Temp Pulse Pulse Resp BP Pulse Ox O2 Del Method 01/28/23 07:30 36.7 C 116 H 18 145/66 H 97 Room Air 01/28/23 07:29 116 H 01/28/23 07:27 117 H 18 93 Nasal Cannula 01/28/23 04:40 122 H 01/28/23 03:00 36.6 C 124 H 19 144/71 H 90 High Flow Nasal Cannula 01/27/23 23:00 37.4 C 83 16 106/62 94 High Flow Nasal Cannula O2 Flow Rate 01/28/23 07:30 01/28/23 07:29 01/28/23 07:27 12 01/28/23 04:40 01/28/23 03:00 01/27/23 23:00 15 Laboratory Results 01/28/23 05:48 01/28/23 05:48 Diagnostic Findings No updated imaging PG Care Time/CCT Total # of Minutes Spent Total Time Spent with Patient: Total time spent is greater than 50% in coordination of care (as documented) at patient's floor/unit and/or counseling patient: Coding Level of Care Code 42838 SUB INP/OBS CARE 2/35MIN Diagnoses Acute respiratory failure with hypoxia and hypercapnia J96.01; J96.02 COPD (chronic obstructive pulmonary disease) J44.9 Pneumonia J18.9 Laterality: bilateral Lung location: lower lobe of lung Pneumonia type: due to unspecified organism Atelectasis J98.11
--- NOTE | 2023-01-28 16:09 | Hospitalist Progress Note ---
Date of Service January 28, 2023 Assessment & Plan (1) Collapse of left lung: Plan: Patient previously had known LLL collapse due to mucous plugging. Dr Cole had been consulted; aggressive pulmonary toilet had been pursued with nebs/chest PT/mucomyst/saline nebs/etc. along with ongoing IV antibiotics. Despite such she had progression of her left lung collapse today as noted on exam as well as radiographically. she remains on wall-mounted high flow NC. spoke with Dr Cole and discussed her afternoon chest x-ray. plan - transfer to ICU, make NPO, cont all of the above pulmonary toilet modalities, and defer to Dr Cole timing of therapeutic bronchoscopy. (2) Severe sepsis: Plan: 2nd to b/l pneumonia s/p fluids at ER presentation along with other supportive care measures had significant lactic acidosis at ER presentation - now resolved remains on broad-spectrum IV abx including cefepime blood cx's remain negative (3) Acute respiratory failure with hypoxia and hypercapnia: Plan: 2nd to severe b/l pneumonia with collapse of the LLL worse today as noted in #1 above despite worsening she fortunately remains on wall-mounted HF NC 10-15 Liters did require BiPAP in the first 24 hours of her stay cont HFNC wall-mounted, o2 sat goals 88-92% cont duonebs qid, mucinex, nebulized mucomyst, saline nebs, and chest PT continue flutter valve continue IV antibiotics appreciate Dr Cole's assistance again transferring to the ICU this afternoon (4) COPD (chronic obstructive pulmonary disease): Plan: PFTs 2021 - moderate obstruction, severely reduced DLCO at baseline Still no bronchospasm or wheezing today -- defer on systemic steroids Cont duonebs & other modalities as above Cont home inhalers (5) Mucus plugging of bronchi: Plan: LLL bronchus see above #1 (6) Pneumonia: Plan: b/l likely bacterial superinfection in the setting of rhinovirus infection cont cefepime cont doxycycline deferring on MRSA coverage - MRSA [employer] swab negative supportive care measures as above droplet precautions due to rhinovirus infection (7) Rhinovirus infection: Plan: droplet precautions supportive care (8) BRITTNEY (acute kidney injury): Plan: sepsis-associated ATN / dehydration Creatinine on admission 1.6 Cr now 0.6 repeat BMP am cont to hold SHUBHAM inhibitor (9) Elevated troponin: Plan: likely 2nd to myocardial demand ischemia in the setting of severe sepsis no evidence of ACS despite her EKG findings echo with preserved EF and normal LV wall motion peak troponin 382 with trend downward thereafter (10) NSVT (nonsustained ventricular tachycardia): Plan: 10-beat run 01/27/23 asymptomatic was lying in bed keep K close to 4 and mag close to 2 echo with preserved EF and normal LV wall motion (11) Hypomagnesemia: Plan: repleted resolved (12) Severe protein-calorie malnutrition: Plan: recent colonoscopy with polyps but no colon cancer CT chest findings noted could consider CT abd/pelvis later in this stay to rule out other pathology but need to focus on pulmonary issues if CT is pursued and nothing is found on CT a/p - chronic cachexia due to severe COPD?? (13) History of nicotine dependence: (14) CAD (coronary artery disease): Plan: 2005 cath - by report - nonobstructive CAD? stress echocardiogram 2013 - no ischemia troponin elevations noted EKG findings noted (T wave inversions anteroseptal leads) echo with preserved EF and no regional WMA ideally she has ischemic evaluation once she is over this illness cont plavix cont metoprolol cont lipitor (15) Hypertension: Plan: BPs satisfactory at this time cont beta jelly cont to hold SHUBHAM (16) S/P mitral valve replacement with bioprosthetic valve: Plan: 2005 echo findings noted (17) History of aortic valve repair: Plan: 2005 findings from echo noted (18) Abnormal EKG: Plan: deep T wave inversions anteroseptal leads last cath 2005? I do not have that report last stress test 2013? these tests are noted in the record but I don't have those reports (19) Elevated INR: Plan: likely 2nd to vit K def s/p vit K x 2 with normalization of INR Plan DVT proph - lovenox will ultimately need PT/OT but still too ill to request those consults pt's significant other updated by phone today transferring to ICU due to #1 Admission and Anticipated Discharge Date Admission Date: January 26, 2023 Subjective tele overnight - sinus tach, ectopy during rounds in the early afternoon the patient was lying in bed watching TV she was coughing significantly throughout the visit she denied dyspnea at rest she has some appetite back no chest pain or tightness continues with a mild pain over her right posterior neck region no abd pain she reports minimal sputum Review of Systems Review of Systems: gen - no fevers or chills; weak, tired/fatigued - but appetite ok cv - no orthopnea pulm - ongoing cough, congestion; no hemoptysis GI - no nausea or emesis Physical Exam Physical Exam: gen - looks ill, cachectic, awake/alert; coughing the entire exam, tachypneic, mild retractions neck - no JVD sitting upright nearly at 90 degrees mouth - MMM, no lesions or thrush heart - tachycardic, s1 s2, no murmur lungs - essentially absent breath sounds on left posteriorly; minimal breath sounds in the RINA via the anterior chest; crackles R base; tachypnea with retractions abd - soft NT ND BS+ ext - no ankle edema, pulses 2+ b/l psych - a/o x 3 Results & Data Results & Data Vital Signs (Past 12 Hours) Vital Signs Temp Pulse Pulse Resp BP Pulse Ox O2 Del Method 01/28/23 15:28 120 H 18 91 Nasal Cannula 01/28/23 13:04 High Flow Nasal Cannula 01/28/23 12:00 36.7 C 124 H 20 139/63 100 High Flow Nasal Cannula 01/28/23 11:11 117 H 20 91 Nasal Cannula 01/28/23 07:30 36.7 C 116 H 18 145/66 H 97 Room Air 01/28/23 07:29 116 H 01/28/23 07:27 117 H 18 93 Nasal Cannula 01/28/23 04:40 122 H O2 Flow Rate 01/28/23 15:28 11 01/28/23 13:04 12 01/28/23 12:00 11 01/28/23 11:11 11 01/28/23 07:30 01/28/23 07:29 01/28/23 07:27 12 01/28/23 04:40 Laboratory Results Laboratory Results - last 24 hr 01/28/23 01/28/23 01/28/23 05:48 05:48 05:48 WBC 9.96 RBC 5.00 Hgb 14.2 Hct 42.6 MCV 85.2 MCH 28.4 MCHC 33.3 RDW Std Deviation 43.8 RDW Coeff of Claudette 13.9 Plt Count 143 MPV 10.6 PT 10.6 INR 1.0 Sodium 132 L Potassium 4.2 Chloride 99 Carbon Dioxide 28 Anion Gap 5 BUN 25 H Creatinine 0.64 D Est Cr Clr Drug Dosing 56.7 Est GFR ( Amer) 111.6 Est GFR (Non-Af Amer) 96.3 BUN/Creatinine Ratio 39.1 H Glucose 121 H Calcium 8.0 L Diagnostic Findings Chest X-Ray 01/28/23 16:08 XR chest 1V portable CLINICAL HISTORY: left lung decreased BS, tachypnea COMPARISON STUDY: Chest radiograph and chest CT January 26, 2023. FINDINGS: Median sternotomy wires. Extensive left lung airspace opacity with diminished aeration of the left lung and volume loss has progressed since prior chest radiograph and chest CT. There is a small left pleural effusion. There is no pneumothorax. Trace right pleural effusion is noted. Right lower lung airspace opacity persists. There is underlying emphysema. IMPRESSION: 1. Progression of extensive left lung airspace opacity with volume loss. This favors pneumonia or aspiration pneumonitis. Given degree of volume loss, consideration might be given to further evaluation with bronchoscopy. Radiographic follow-up to ensure resolution is recommended. Findings discussed with Dr. Gill at time of dictation. 2. Right lower lung airspace opacities suggestive of pneumonia or aspiration pneumonitis. 3. Small left and trace right pleural effusions. 4. Emphysema. ACT 112: Negative or not required by law. Electronically signed by: Peter Alexandre M.D. 01/28/2023 6:30 PM PG Care Time/CCT Total # of Minutes Spent Total Time Spent with Patient: Total time spent is greater than 50% in coordination of care (as documented) at patient's floor/unit and/or counseling patient: Coding Level of Care Code 96022 SUB INP/OBS CARE 3/50MIN Diagnoses Collapse of left lung J98.11 Severe sepsis A41.9; R65.20 Acute respiratory failure with hypoxia and hypercapnia J96.01; J96.02 COPD (chronic obstructive pulmonary disease) J44.9 Mucus plugging of bronchi T17.500A Pneumonia J18.9 Laterality: bilateral Lung location: lower lobe of lung Pneumonia type: due to unspecified organism Rhinovirus infection B34.8 BRITTNEY (acute kidney injury) N17.9 Elevated troponin R77.8 NSVT (nonsustained ventricular tachycardia) I47.29 Hypomagnesemia E83.42 Severe protein-calorie malnutrition E43 History of nicotine dependence Z87.891 CAD (coronary artery disease) I25.10 Hypertension I10 S/P mitral valve replacement with bioprosthetic valve Z95.3 History of aortic valve repair Z98.890; Z86.79 Abnormal EKG R94.31 Elevated INR R79.1 (6) Pneumonia Laterality: bilateral Lung location: lower lobe of lung Pneumonia type: due to unspecified organism Qualified Code(s): J18.9 - Pneumonia, unspecified organism
[2023-01-28] MEDS ORDERED: MIDAZOLAM HCL 1 MG/ML 2ML VIAL ONE ×2 (17:31→17:40)
[2023-01-28] MEDS ORDERED: fentaNYL citrate PF 100 MCG/2 ML VIAL ONE ×2 (17:32→18:04)
--- NOTE | 2023-01-28 17:33 | Electrocardiogram Report ---
Test Reason : Blood Pressure : / mmHG Vent. Rate : 111 BPM Atrial Rate : 111 BPM P-R Int : 146 ms QRS Dur : 090 ms QT Int : 362 ms P-R-T Axes : 080 074 064 degrees QTc Int : 492 ms Sinus tachycardia Premature atrial complexes Possible Left atrial enlargement Left ventricular hypertrophy T wave abnormality, consider anterior ischemia Prolonged QT Abnormal ECG When compared with ECG of 26-JAN-2023 16:13, Nonspecific T wave abnormality no longer evident in Inferior leads Confirmed by Baldomero Castro ([id number]) on 01/28/2023 5:33:49 PM Referred By: Maritn Joshi Confirmed By:Baldomero Castro
[2023-01-28] MEDS ORDERED: LIDOCAINE 2% JELLY 5 ML TUBE EXT ONE (17:34)
--- NOTE | 2023-01-28 17:55 | Pre Anesthesia Assessment ---
Date of Service January 28, 2023 Pre Sedation Assessment Vital Signs Temp Pulse Pulse Resp BP Pulse Ox O2 Del Method 01/28/23 16:54 36.6 C 130 H 20 128/71 93 High Flow Nasal Cannula 01/28/23 15:28 120 H 18 91 Nasal Cannula 01/28/23 13:04 High Flow Nasal Cannula 01/28/23 12:00 36.7 C 124 H 20 139/63 100 High Flow Nasal Cannula 01/28/23 11:11 117 H 20 91 Nasal Cannula 01/28/23 07:30 36.7 C 116 H 18 145/66 H 97 Room Air 01/28/23 07:29 116 H 01/28/23 07:27 117 H 18 93 Nasal Cannula 01/28/23 04:40 122 H 01/28/23 03:00 36.6 C 124 H 19 144/71 H 90 High Flow Nasal Cannula 01/27/23 23:00 37.4 C 83 16 106/62 94 High Flow Nasal Cannula 01/27/23 21:00 High Flow Nasal Cannula 01/27/23 19:00 36.9 C 120 H 18 131/68 93 High Flow Nasal Cannula 01/27/23 19:47 84 16 92 Nasal Cannula O2 Flow Rate 01/28/23 16:54 11 01/28/23 15:28 11 01/28/23 13:04 12 01/28/23 12:00 11 01/28/23 11:11 11 01/28/23 07:30 01/28/23 07:29 01/28/23 07:27 12 01/28/23 04:40 01/28/23 03:00 01/27/23 23:00 15 01/27/23 21:00 15 01/27/23 19:00 12 01/27/23 19:47 12 Cardiovascular RRR, no murmur, no edema Respiratory + diminished lung sounds Pre-Sedation Airway Assessment Smoking Status: Former smoker Hx Sleep Apnea: Yes Short, Thick Neck: No Thyromental Distance: > or= 3.5 Finger Breadths Oral Cavity: + Loose Teeth and + Dental Abnormalities Mallampati Class: I ASA: ASA3 NPO Status Date of Last Intake of Fluids: 01/28/23 Time of Last Intake of Fluids: 13:00 Last Oral Intake of Fluids Comment: sips Date of Last Intake of Solid Food: 01/28/23 Time of Last Intake of Solid Foods: 12:00 Last Intake of Solids Comment: couple bites of chicken, jello Notes The planned sedation has been discussed with the patient. Informed Consent was obtained. I have identified the patient, determined the appropriateness of sedation and have assessed the patient immediately prior to the procedure. All medicine(s) and interventions are by my order.
--- NOTE | 2023-01-28 17:55 | History & Physical Bridge Note ---
Date of Service January 28, 2023 History & Physical Bridge Note I have examined the patient, reviewed the History & Physical and in the interval since the performance of the History & Physical I have noted the following changes of clinical significance: no changes noted
--- NOTE | 2023-01-28 18:13 | Post Anesthesia Assessment ---
Date of Service January 28, 2023 Post Sedation Assessment Vital Signs Temp Pulse Pulse Resp BP BP BP 01/28/23 18:06 141 H 26 H 01/28/23 18:04 144 H 17 01/28/23 18:03 144 H 18 01/28/23 18:03 137/78 01/28/23 18:02 142 H 18 01/28/23 18:00 142 H 18 01/28/23 18:00 125/71 01/28/23 17:58 141 H 28 H 01/28/23 17:57 151/77 H 01/28/23 17:57 142 H 20 01/28/23 17:45 140 H 23 01/28/23 17:42 141 H 23 01/28/23 17:42 160/75 H 01/28/23 17:30 134 H 17 01/28/23 17:15 137 H 01/28/23 17:00 134 H 01/28/23 16:45 135 H 01/28/23 16:30 132 H 01/28/23 16:15 133 H 01/28/23 16:00 134 H 01/28/23 15:45 135 H 01/28/23 15:30 129 H 01/28/23 15:15 128 H 01/28/23 15:00 131 H 01/28/23 14:45 124 H 01/28/23 14:30 129 H 01/28/23 14:15 131 H 01/28/23 14:00 131 H 01/28/23 13:45 125 H 01/28/23 13:30 134 H 01/28/23 13:15 128 H 01/28/23 13:00 129 H 01/28/23 12:45 130 H 01/28/23 12:30 132 H 01/28/23 12:15 130 H 01/28/23 12:00 119 H 01/28/23 11:45 125 H 01/28/23 11:30 116 H 01/28/23 11:15 123 H 01/28/23 11:00 121 H 01/28/23 10:45 121 H 01/28/23 10:30 116 H 01/28/23 10:15 126 H 01/28/23 10:00 125 H 01/28/23 09:45 107 H 01/28/23 09:30 127 H 01/28/23 09:15 130 H 09/30/23 09:00 128 H 01/28/23 08:45 121 H 01/28/23 08:30 129 H 01/28/23 08:15 125 H 01/28/23 08:00 126 H 01/28/23 07:45 127 H 01/28/23 07:30 126 H 01/28/23 07:15 114 H 01/28/23 07:00 126 H 01/28/23 06:45 126 H 01/28/23 06:30 118 H 01/28/23 18:08 139 H 18 117/63 01/28/23 17:39 36.5 C 01/28/23 17:54 140 H 25 H 151/77 H 01/28/23 16:54 36.6 C 130 H 20 128/71 01/28/23 15:28 120 H 18 01/28/23 13:04 01/28/23 12:00 36.7 C 124 H 20 139/63 01/28/23 11:11 117 H 20 01/28/23 07:30 36.7 C 116 H 18 145/66 H 01/28/23 07:29 116 H 01/28/23 07:27 117 H 18 01/28/23 04:40 122 H 01/28/23 03:00 36.6 C 124 H 19 144/71 H 01/27/23 23:00 37.4 C 83 16 106/62 01/27/23 21:00 01/27/23 19:00 36.9 C 120 H 18 131/68 01/27/23 19:47 84 16 Pulse Ox O2 Del Method O2 Flow Rate 01/28/23 18:06 82 L 01/28/23 18:04 90 01/28/23 18:03 89 L 01/28/23 18:03 01/28/23 18:02 87 L 01/28/23 18:00 89 L 01/28/23 18:00 01/28/23 17:58 89 L 01/28/23 17:57 01/28/23 17:57 89 L 01/28/23 17:45 89 L 01/28/23 17:42 88 L 01/28/23 17:42 01/28/23 17:30 93 01/28/23 17:15 01/28/23 17:00 01/28/23 16:45 01/28/23 16:30 90 01/28/23 16:15 91 01/28/23 16:00 89 L 01/28/23 15:45 89 L 01/28/23 15:30 94 01/28/23 15:15 92 01/28/23 15:00 90 01/28/23 14:45 91 01/28/23 14:30 01/28/23 14:15 94 01/28/23 14:00 91 01/28/23 13:45 94 01/28/23 13:30 87 L 01/28/23 13:15 94 01/28/23 13:00 91 01/28/23 12:45 89 L 01/28/23 12:30 88 L 01/28/23 12:15 90 01/28/23 12:00 01/28/23 11:45 95 01/28/23 11:30 94 01/28/23 11:15 95 01/28/23 11:00 01/28/23 10:45 01/28/23 10:30 01/28/23 10:15 01/28/23 10:00 96 01/28/23 09:45 01/28/23 09:30 01/28/23 09:15 90 01/28/23 09:00 95 01/28/23 08:45 94 01/28/23 08:30 92 01/28/23 08:15 01/28/23 08:00 94 01/28/23 07:45 96 01/28/23 07:30 96 01/28/23 07:15 01/28/23 07:00 94 01/28/23 06:45 01/28/23 06:30 93 01/28/23 18:08 91 Oxymask 15 01/28/23 17:39 01/28/23 17:54 89 L Nasal Cannula 01/28/23 16:54 93 High Flow Nasal Cannula 01/28/23 15:28 91 Nasal Cannula 01/28/23 13:04 High Flow Nasal Cannula 01/28/23 12:00 100 High Flow Nasal Cannula 01/28/23 11:11 91 Nasal Cannula 01/28/23 07:30 97 Room Air 01/28/23 07:29 01/28/23 07:27 93 Nasal Cannula 01/28/23 04:40 01/28/23 03:00 90 High Flow Nasal Cannula 01/27/23 23:00 94 High Flow Nasal Cannula 15 01/27/23 21:00 High Flow Nasal Cannula 15 01/27/23 19:00 93 High Flow Nasal Cannula 12 01/27/23 19:47 92 Nasal Cannula 12 Recovery Score Activity: Moves 0 extremities Respiration: Deep Breath/Cough Consciousness: Nonresponsive Oxygen Saturation: O2 needed for >90% Post Anesthesia Score: 3 Discharge Sedation Level of Care: Fast Track Phase II Post Sedation Plan On clinical assessment, the patient appears to have tolerated the sedation without complications. Patient is recovering as anticipated. Patient will continue to be monitored by nursing and may be discharged when sedation discharge criteria are met per below protocol. Upon Completions of procedure up to 15 minutes continue every 5 minute vital signs and the P.A.R. score; then discharge to a Phase I or Fast Track to Phase II per the following guidelines: * Discharge Patient to appropriate Phase II area if PAR is 8 or greater or return to pre- procedure baseline. The post - procedure orders will be as directed. * If PAR score is less than 8 or not return to pre-procedure baseline then patient will follow Phase I monitoring till PAR is reached for Phase II. The Phase I may be done in procedure room or may call to secure a Phase I area. * If naloxone or flumazenil are used for reversal, hold in Phase I for continued monitoring from when last reversal dose was given for a minimum of 60 minutes or longer pending the nurse and/or physician discretion of patient condition before discharge to Phase II. Please call the Sedation Physician to re-evaluate and complete post-note for discharge to Phase II area. Do NOT discharge from procedure sedation or Phase 1 until post- sedation evaluation note is complete by procedure /sedation MD Sedation Discharge Instructions to be given to the patient at discharge to home.
--- NOTE | 2023-01-28 18:16 | Procedure Note ---
Procedure Note Date of Service January 28, 2023 Note Procedure: Fiberoptic bronchoscopy Therapeutic aspiration of secretions, initial Conscious sedation Provider: Omer Cole MD Consent: Signed by patient and timeout verified prior to procedure. Sedation start: 545 Sedation end: 610 Conscious sedation: 100 mcg fentanyl, 4 mg Versed, topical lidocaine per RT protocol Indication: Atelectasis Procedure: Patient was brought to the ICU suite. Consent was verified. Appropriate radiographic studies had been reviewed prior to the procedure. Standard monitoring was applied. Oxygen was administered. After topical anesthesia of the airways per respiratory therapy protocol, the fiberoptic scope was advanced through the left nares. Oropharynx was unremarkable. Vocal cords were visualized and were normal in function and appearance. Topical anesthesia of the cords was achieved with instillation of lidocaine through the scope. Scope was then passed through the vocal cords. The trachea was midline. Main anival was sharp. Anesthesia of the lower airways was achieved with instillation of lidocaine through the scope. A sequential and systematic examination of the lower airways was conducted. There were copious mucoid secretions present in the trachea as well as bilateral mainstem bronchi which were lavaged free with saline irrigation. After the airways were completely cleared, and inspection was conducted the right-sided airways were normal in appearance and patent and the mucosa appeared friable and irritated. Left-sided airways were normal in appearance and patent and the mucosa appeared friable. The bronchoscope was then removed from the airways. The patient tolerated the procedure well without obvious complication. Patient was returned to the recovery room. Impression: 1. Mucous plugging, resolved after saline lavage Coding CPT Codes Pulmonary/Thoracic - Pulmonary and Thoracic: 03207 Bronchoscopy, clear airways ([id number]) [facility] [place] Procedure Codes (Charges) Pulmonary/Thoracic Procedure 1: Pulmonary and Thoracic: 13573 Bronchoscopy, clear airways
--- NOTE | 2023-01-28 18:18 | Communication Note ---
Date of Service: January 28, 2023 Was contacted by the primary service that the patient was developing tachycardia. Repeat chest x-ray demonstrated progressive opacification of the left lung. Patient was transferred to the ICU. I assessed the patient on arrival. She is awake alert conversant and talking on the phone with her significant other. We discussed that given the fact that she is failed conservative measures and the atelectasis appears to be progressive, bronchoscopy would be indicated. She is agreeable. Consent was signed. Bronchoscopy was completed. See separate procedure note. This point time we will have the patient recover from conscious sedation. We will continue aggressive pulmonary toilet measures. Patient can likely be returned back to the floor within the next few hours or in the a.m. depending on clinical response. Coding Level of Care Code None
--- NOTE | 2023-01-28 18:31 | XRay Report ---
XR chest 1V portable CLINICAL HISTORY: left lung decreased BS, tachypnea COMPARISON STUDY: Chest radiograph and chest CT January 26, 2023. FINDINGS: Median sternotomy wires. Extensive left lung airspace opacity with diminished aeration of t he left lung and volume loss has progressed since prior chest radiograph and chest CT. There is a sma ll left pleural effusion. There is no pneumothorax. Trace right pleural effusion is noted. Right lowe r lung airspace opacity persists. There is underlying emphysema. IMPRESSION: 1. Progression of extensive left lung airspace opacity with volume loss. This favors pneumonia or as piration pneumonitis. Given degree of volume loss, consideration might be given to further evaluation with bronchoscopy. Radiographic follow-up to ensure resolution is recommended. Findings discussed wi Dr. Gill at time of dictation. 2. Right lower lung airspace opacities suggestive of pneumonia or aspiration pneumonitis. 3. Small left and trace right pleural effusions. 4. Emphysema. ACT 112: Negative or not required by law. Electronically signed by: Peter Alexandre M.D. 01/28/2023 6:30 PM
[2023-01-28] MEDS ORDERED: METOPROLOL TARTRATE 1 MG/ML VIAL IV STA (19:00)
[2023-01-28] MEDS ORDERED: ADENOSINE IV SOLN 3 MG/ML 2 ML VIAL IV ONE (19:01)
[2023-01-28] MEDS ORDERED: METOPROLOL TARTRATE 1 MG/ML VIAL IV ONE ×2 (19:02→19:15)
--- NOTE | 2023-01-28 19:24 | Electrocardiogram Report ---
Test Reason : Blood Pressure : / mmHG Vent. Rate : 137 BPM Atrial Rate : 137 BPM P-R Int : 150 ms QRS Dur : 082 ms QT Int : 370 ms P-R-T Axes : 000 076 063 degrees QTc Int : 558 ms Possible Sinus tachycardia with short CT Minimal voltage criteria for LVH, may be normal variant Nonspecific ST and T wave abnormality When compared with ECG of 07-JAN-2023 13:20, ST no longer depressed in Inferior leads T wave inversion less evident in Inferior leads Confirmed by Baldomero Castro ([id number]) on 01/28/2023 7:24:04 PM Referred By: Martin Joshi Confirmed By:Baldomero Castro
--- NOTE | 2023-01-28 19:28 | Electrocardiogram Report ---
Test Reason : Blood Pressure : / mmHG Vent. Rate : 113 BPM Atrial Rate : 113 BPM P-R Int : 152 ms QRS Dur : 088 ms QT Int : 352 ms P-R-T Axes : 075 084 028 degrees QTc Int : 482 ms Poor data quality, interpretation may be adversely affected Sinus tachycardia with Premature atrial complexes Minimal voltage criteria for LVH, may be normal variant T wave abnormality, consider anterior ischemia Abnormal ECG When compared with ECG of 26-JAN-2023 13:27, T wave inversion more evident in Anterior leads Confirmed by Baldomero Castro ([id number]) on 01/28/2023 7:28:10 PM Referred By: Martin Joshi Confirmed By:Baldomero Castro
--- NOTE | 2023-01-28 19:29 | Communication Note ---
Date of Service: January 28, 2023 1900- Patient with HR 190-200s with BP 90/60s, patient is awakened failed carotid massage as well as blowing through syringe and bearing down. She was given 5mg IV Lopressor with decrease in HR back to 140-150s (which is where she has been throughout the day). Her BP increased to 117/77- will repeat metoprolol 5mg IV x1 again. Will replace 2GM of Magnesium. Patient is with noted history of SVT with frequent PACs but no noted history of atrial fib/flutter noted. ECG at this time appears more fib/flutter even when in the 130s. She is easily arousable and following commands and is not complaining of chest discomfort, she is post bronchoscopy at bedside will obtain CXR r/o pneumo. Recent ECHO reviewed from 01/27/30 with noted EF 55-60%- noted with Trace mitral regurge and bioprosthetic mitral valve and elevated gradient although with tachycardia to the 110s to 120s. - Expect that most of her tachycardia is related to sepsis and her pulmonary status- the pulmonary infiltrate is markedly improved following bronchoscopy as well as her tachypnea. Will continue with IV metoprolol 5mg IV q4-6 and if ineffective will add Dixogin. Blood pressure is stable and tolerating BB may also consider esmolol if needed without bolus. Would like to keep HR 120-140s which has been her norm this admission, but currently 140-180s. Hold on anti coagulation at this time as appears less than 24 hours in [facility]. 30 minutes additional critical care time Coding Level of Care Code 14906 Prolonged Care (int'l)
[2023-01-28] MEDS: MAGNESIUM SULFATE / D5W 1 GM/100 ML BAG IV SCH ×2 (20:10→21:41)
[2023-01-28] MEDS: CLOPIDOGREL BISULFATE 75 MG TAB PO SCH (20:25)
[2023-01-28] MEDS: ATORVASTATIN 40 MG TAB PO SCH (20:25)
[2023-01-28] MEDS ORDERED: DIGOXIN 250 MCG in SYRINGE 9 ML IV ONE (21:15)
[2023-01-28] MEDS: ENOXAPARIN INJ 30 MG/0.3 ML SYR SQ SCH (21:16)
[2023-01-28] MEDS: METOPROLOL TARTRATE 1 MG/ML VIAL IV SCH (23:49)
[2023-01-29] MEDS: METOPROLOL TARTRATE 1 MG/ML VIAL IV SCH ×2 (00:20→02:54)
[2023-01-29] MEDS ORDERED: METOPROLOL TARTRATE 1 MG/ML VIAL IV PRN (03:01)
[2023-01-29 04:43] LABS: Basophils # (auto) 0.02 K/uL (0.00-0.20); Basophils % (auto) 0.2 %; Eosinophils # (auto) 0.01 K/uL (0.00-0.50); Eosinophils % (auto) 0.1 %; Hematocrit (blood only) 38.8 % (37.0-47.0); Hemoglobin 13.1 g/dl (12.0-16.0); Immature Granulocytes # (auto) 0.09 K/uL (0.01-0.20); Immature Granulocytes % (auto) 1.1 %; Lymphocytes # (auto) 0.62 K/uL (1.20-3.40); Lymphocytes % (auto) 7.5 %; Mean Corpuscular Hemoglobin 28.2 pg (25.0-34.0); Mean Corpuscular Hgb Conc 33.8 g/dL (32.0-36.0); Mean Corpuscular Volume 83.6 fL (80.0-100.0); Mean Platelet Volume 10.6 fL (9.4-12.4); Monocytes # (auto) 0.54 K/uL (0.11-0.59); Monocytes % (auto) 6.5 %; Neutrophils # (auto) 7.02 K/uL (1.40-6.50); Neutrophils % (auto) 84.6 %; Platelet Count 148 K/uL (130-400); RDW Coefficient of Variation 13.9 % (11.5-14.5); RDW Standard Deviation 42.2 fL (36.4-46.3); Red Blood Count 4.64 M/uL (4.20-5.40)
[2023-01-29 04:44] LABS: Albumin Globulin Ratio 0.9 (0.9-2); Albumin Level 2.8 gm/dl (3.4-5.0); BUN Creatinine Ratio 36.2 (10-20); Bilirubin,Total 0.9 mg/dl (0.2-1.0); Calcium 8.4 mg/dl (8.6-10.3); Creatinine Clr Calc Pharmacy 63.5 ml/min; Est GFR (African American) 115.3 ml/min; Est GFR (Non-African American) 99.5 ml/min; Globulin 3.2 gm/dl (2.5-4.0); Potassium 4.3 mmol/L (3.5-5.1)
[2023-01-29] MEDS: CEFEPIME 2,000 MG in SYRINGE 0 ML IV SCH (05:50)
[2023-01-29] MEDS ORDERED: METOPROLOL TARTRATE 25 MG TAB PO ONE (06:00)
--- NOTE | 2023-01-29 06:59 | XRay Report ---
XR chest 1V portable CLINICAL HISTORY: atelectasis COMPARISON STUDY: Chest CT January 26, 2023. Chest radiograph January 28, 2022 at 8:29 PM. FINDINGS: There is no pneumothorax. A small left pleural effusion is noted. Bilateral airspace opacit ies are greater within the left lung. Left lung aeration has mildly improved since prior chest radiog raph and significantly improved since chest radiograph performed at 4:13 PM on January 28. Diffuse interstitial thickening is noted. There is underlying emphysema. Cardiomediastinal silhouette is stab le. IMPRESSION: 1. Interval improvement in left lung aeration. Bilateral airspace opacities, greater on the left. Th e findings may reflect pneumonia or atelectasis. 2. Small left pleural effusion. No pneumothorax. 3. Interstitial thickening. This may reflect an infectious process or pulmonary edema. ACT 112: Negative or not required by law. Electronically signed by: Peter Alexandre M.D. 01/29/2023 6:57 AM
[2023-01-29] MEDS: ACETYLCYSTEINE 10% INHAL SOLN 4 ML **DISPENSED BY RESP. INH SCH ×2 (07:10→19:21)
[2023-01-29] MEDS: SODIUM CHLOR 7% 4 ML NEB NEB SCH ×2 (07:10→19:21)
[2023-01-29] MEDS: FORMOTEROL 20 MCG/2 ML VIAL NEB SCH ×2 (07:10→19:21)
[2023-01-29] MEDS: ALBUT/IPRATROP 3MG/0.5MG NEB 3 ML VIAL NEB SCH ×4 (07:45→19:21)
--- NOTE | 2023-01-29 07:46 | Critical Care Progress Note ---
Date of Service January 29, 2023 Assessment & Plan (1) Acute respiratory failure with hypoxia and hypercapnia: (2) COPD (chronic obstructive pulmonary disease): (3) Pneumonia: (4) Atelectasis: Plan Impression: 62-year-old female with moderate obstructive lung disease with left lower lobe pneumonia and severe mucous plugging of the left lower lobe bronchi. She clinically worsened with atelectasis of greater than 80% of her lung yesterday and was transferred emergently to the ICU. She underwent bronchoscopy with therapeutic aspiration of secretions. She initially did well but post procedurally developed tachycardia which may have been multifocal atrial tachycardia. This did respond to beta-blockers. She is hemodynamically stable and doing well from a respiratory standpoint this morning. Recommendations: 1. Mucous plugging: Status post bronchoscopy. Continue nebulized Mucomyst as well as hypertonic saline. Continue flutter valve and chest physiotherapy as well. Resume diet. Out of bed to chair as tolerated. 2. COPD: No indication for steroids. Continue with Perforomist and budesonide. Continue incruse. Okay to use DuoNebs as needed. 3. Hypoxemic and hypercarbic respiratory failure: Acute on chronic. Continue to avoid hypoxemia and would titrate oxygen saturations to maintain sats of 88 to 90%. If we can get her off of high flow, and her heart rate remained stable, can likely return to the floor. 4. 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 5. Tachycardia: Difficult to read on her EKG as the baseline is quite irregular but this may be multifocal atrial tachycardia which would go along with the patient's advanced lung disease. She appears to have responded favorably to beta-blockade and this will be continued at this point in time although calcium channel blockers typically may be slightly more effective if this is MAT. Would hold anticoagulation for now as it is unclear if this was a single event or recurrent in 6. Pneumonia: Patient has been on cefepime doxycycline. Think this can be escalated to Rocephin and Doxy. The patient's oxygen can be decreased and she remains in sinus rhythm she can likely transfer back to the floor later today. We will continue to follow for pulmonary issues Admission and Anticipated Discharge Date Admission Date: January 26, 2023 Subjective Patient seen and examined. EMR reviewed. She reports that she is doing okay this morning. She had an episode of tachycardia last evening which required beta-jelly and digoxin. She feels her respiratory status is better. She is hungry and asking to eat. Review of Systems Review of Systems: All systems reviewed & are unremarkable except as noted in Subjective Physical Exam Constitutional: well developed, + cachectic and + frail appearing; + not well nourished and no acute distress Eyes: PERRL, conjunctivae normal, anicteric sclerae ENMT: Mallampati Class: I Neck: trachea midline, no thyromegaly Respiratory: normal respiratory effort; no respiratory distress Auscultation: + diminished lung sounds and + crackles (bibasal); no wheezes Cardiovascular: RRR, no murmur, no edema Rate/Rhythm: regular rate and regular rhythm Heart Sounds: no murmur Extremities: normal capillary refill and + pedal edema (1+ pitting in feet only); no calf tenderness Gastrointestinal (Abdomen): normal bowel sounds, soft, nontender, no hepatosplenomegaly Musculoskeletal: no cyanosis or clubbing, extremities motor strength 5/5 Skin: no rashes, warm and dry Neurologic: moves all extremities and awake; no focal motor deficits (no unilateral deficit) and not confused Psychiatric: A+Ox3, euthymic affect Results & Data Results & Data Vital Signs (Past 12 Hours) Vital Signs Temp Pulse Pulse Resp BP Pulse Ox O2 Del Method 01/29/23 07:00 83 24 95 01/29/23 07:00 129/54 L 01/29/23 06:30 88 23 95 01/29/23 06:30 134/55 L 01/29/23 07:10 87 26 H 100 High Flow Nasal Cannula 01/29/23 04:00 36.5 C 01/29/23 00:00 36.5 C 01/28/23 20:00 36.5 C 01/29/23 06:00 86 27 H 114/57 L 95 01/29/23 00:00 98 H 01/28/23 20:00 136 H 01/29/23 05:42 149 H 116/85 01/29/23 05:00 88 24 134/50 L 96 01/29/23 04:00 159 H 24 118/84 98 01/29/23 03:00 152 H 33 H 118/69 96 01/29/23 05:34 170 H 116/85 01/29/23 03:03 109 H 118/69 01/29/23 02:54 161 H 88/52 L 01/29/23 02:13 156 H 30 H 93 High Flow Nasal Cannula 01/29/23 02:00 147 H 32 H 114/75 89 L 01/29/23 01:00 142 H 28 H 72/46 L 93 01/29/23 00:00 140 H 26 H 108/51 L 95 01/29/23 00:20 97 H 97/56 L 01/28/23 23:49 170 H 98/69 L 01/28/23 23:00 145 H 28 H 98/66 L 90 01/28/23 22:00 161 H 22 103/80 97 01/28/23 22:18 160 H 28 H 90 High Flow Nasal Cannula 01/28/23 21:00 176 H 27 H 116/57 L 92 01/28/23 21:15 159 H 01/28/23 21:12 93 High Flow Nasal Cannula 01/28/23 20:57 High Flow Nasal Cannula 01/28/23 20:30 170 H 24 106/73 85 L 01/28/23 20:15 163 H 34 H 107/76 92 01/28/23 20:00 155 H 30 H 99/52 L 92 01/28/23 19:45 167 H 30 H 94/56 L 94 01/28/23 20:31 177 H 34 H 93 High Flow Nasal Cannula 01/28/23 20:14 183 H 99/52 L 01/28/23 20:13 157 H 99/52 L 01/28/23 20:11 180 H 01/28/23 20:11 200 H 99/52 L O2 Flow Rate FiO2 01/29/23 07:00 01/29/23 07:00 01/29/23 06:30 01/29/23 06:30 01/29/23 07:10 25 70 01/29/23 04:00 01/29/23 00:00 01/28/23 20:00 01/29/23 06:00 01/29/23 00:00 01/28/23 20:00 01/29/23 05:42 01/29/23 05:00 01/29/23 04:00 01/29/23 03:00 01/29/23 05:34 01/29/23 03:03 01/29/23 02:54 01/29/23 02:13 25 70 01/29/23 02:00 01/29/23 01:00 01/29/23 00:00 01/29/23 00:20 01/28/23 23:49 01/28/23 23:00 01/28/23 22:00 01/28/23 22:18 25 70 01/28/23 21:00 01/28/23 21:15 01/28/23 21:12 25 70 01/28/23 20:57 30 100 01/28/23 20:30 01/28/23 20:15 01/28/23 20:00 01/28/23 19:45 01/28/23 20:31 30 100 01/28/23 20:14 01/28/23 20:13 01/28/23 20:11 01/28/23 20:11 Critical Care Results & Data Vital Signs (Past 12 Hours) Vital Signs Temp Pulse Pulse Resp BP Pulse Ox O2 Del Method 01/29/23 07:00 83 24 95 01/29/23 07:00 129/54 L 01/29/23 06:30 88 23 95 01/29/23 06:30 134/55 L 01/29/23 07:10 87 26 H 100 High Flow Nasal Cannula 01/29/23 04:00 36.5 C 01/29/23 00:00 36.5 C 01/28/23 20:00 36.5 C 01/29/23 06:00 86 27 H 114/57 L 95 01/29/23 00:00 98 H 01/28/23 20:00 136 H 01/29/23 05:42 149 H 116/85 01/29/23 05:00 88 24 134/50 L 96 01/29/23 04:00 159 H 24 118/84 98 01/29/23 03:00 152 H 33 H 118/69 96 01/29/23 05:34 170 H 116/85 01/29/23 03:03 109 H 118/69 01/29/23 02:54 161 H 88/52 L 01/29/23 02:13 156 H 30 H 93 High Flow Nasal Cannula 01/29/23 02:00 147 H 32 H 114/75 89 L 01/29/23 01:00 142 H 28 H 72/46 L 93 01/29/23 00:00 140 H 26 H 108/51 L 95 01/29/23 00:20 97 H 97/56 L 01/28/23 23:49 170 H 98/69 L 01/28/23 23:00 145 H 28 H 98/66 L 90 01/28/23 22:00 161 H 22 103/80 97 01/28/23 22:18 160 H 28 H 90 High Flow Nasal Cannula 01/28/23 21:00 176 H 27 H 116/57 L 92 01/28/23 21:15 159 H 01/28/23 21:12 93 High Flow Nasal Cannula 01/28/23 20:57 High Flow Nasal Cannula 01/28/23 20:30 170 H 24 106/73 85 L 01/28/23 20:15 163 H 34 H 107/76 92 01/28/23 20:00 155 H 30 H 99/52 L 92 01/28/23 19:45 167 H 30 H 94/56 L 94 01/28/23 20:31 177 H 34 H 93 High Flow Nasal Cannula 01/28/23 20:14 183 H 99/52 L 01/28/23 20:13 157 H 99/52 L 01/28/23 20:11 180 H 01/28/23 20:11 200 H 99/52 L O2 Flow Rate FiO2 01/29/23 07:00 01/29/23 07:00 01/29/23 06:30 01/29/23 06:30 01/29/23 07:10 25 70 01/29/23 04:00 01/29/23 00:00 01/28/23 20:00 01/29/23 06:00 01/29/23 00:00 01/28/23 20:00 01/29/23 05:42 01/29/23 05:00 01/29/23 04:00 01/29/23 03:00 01/29/23 05:34 01/29/23 03:03 01/29/23 02:54 01/29/23 02:13 25 70 01/29/23 02:00 01/29/23 01:00 01/29/23 00:00 01/29/23 00:20 01/28/23 23:49 01/28/23 23:00 01/28/23 22:00 01/28/23 22:18 25 70 01/28/23 21:00 01/28/23 21:15 01/28/23 21:12 25 70 01/28/23 20:57 30 01/28/23 20:30 01/28/23 20:15 01/28/23 20:00 01/28/23 19:45 01/28/23 20:31 30 100 01/28/23 20:14 01/28/23 20:13 01/28/23 20:11 01/28/23 20:11 Lab & Micro Results (Past 24 Hours) RBC 4.64 M/uL (4.20-5.40) 01/29/23 WBC 8.30 K/ul (4.8-10.8) 01/29/23 Hgb 13.1 g/dl (12.0-16.0) 01/29/23 Hct 38.8 % (37.0-47.0) 01/29/23 MCV 83.6 fL (80.0-100.0) 01/29/23 MCH 28.2 pg (25.0-34.0) 01/29/23 MCHC 33.8 g/dL (32.0-36.0) 01/29/23 RDW Standard Deviation 42.2 fL (36.4-46.3) 01/29/23 RDW Coefficient of Variation 13.9 % (11.5-14.5) 01/29/23 Plt Count 148 K/uL (130-400) 01/29/23 MPV 10.6 fL (9.4-12.4) 01/29/23 Neutrophils (%) (Auto) 84.6 % 01/29/23 Lymphocytes (%) (Auto) 7.5 % 01/29/23 Monocytes # (Auto) 0.54 K/uL (0.11-0.59) 01/29/23 Eosinophils # (Auto) 0.01 K/uL (0.00-0.50) 01/29/23 Immature Granulocyte % (Auto) 1.1 % 01/29/23 Neutrophils # (Auto) 7.02 K/uL (1.40-6.50) H 01/29/23 Lymphocytes # (Auto) 0.62 K/uL (1.20-3.40) L 01/29/23 Monocytes # (Auto) 0.54 K/uL (0.11-0.59) 01/29/23 Eosinophils # (Auto) 0.01 K/uL (0.00-0.50) 01/29/23 Basophils # (Auto) 0.02 K/uL (0.00-0.20) 01/29/23 Immature Granulocyte # (Auto) 0.09 K/uL (0.01-0.20) 3 Na 131 mmol/L (136-145) L 01/29/23 K 4.3 mmol/L (3.5-5.1) 01/29/23 Cl 98 mmol/L (98-107) 01/29/23 CO2 27 mmol/L (21-32) 01/29/23 Anion Gap 6 (3-11) 01/29/23 BUN 21 mg/dl (6-23) 01/29/23 Creatinine 0.58 mg/dl (0.6-1.2) L 01/29/23 Estimated GFR ( Amer) 115.3 ml/min 01/29/23 Estimated GFR (Non-Af Amer) 99.5 ml/min 01/29/23 BUN/Creatinine Ratio 36.2 (10-20) H 01/29/23 Glu 99 mg/dl (70-99(Fasting)) 01/29/23 Ca 8.4 mg/dl (8.6-10.3) L 01/29/23 Total Bilirubin 0.9 mg/dl (0.2-1.0) 01/29/23 AST 49 U/L (13-39) H 01/29/23 ALT 35 U/L (7-52) 01/29/23 Alkaline Phosphatase 99 U/L (34-104) 01/29/23 TP 6.0 gm/dl (6.0-8.3) 01/29/23 Albumin 2.8 gm/dl (3.4-5.0) L 01/29/23 Globulin 3.2 gm/dl (2.5-4.0) 01/29/23 Albumin/Globulin Ratio 0.9 (0.9-2) 01/29/23 Mg 2.0 mg/dl (1.7-2.4) 01/29/23 04:02 Calcium Level 8.4 mg/dl (8.6-10.3) L 01/29/23 04:02 Microbiology 01/26/23 13:21 Aerobic Blood Culture - Preliminary Blood No growth in Aerobic bottle after 48 hours. Anaerobic Blood Culture - Preliminary No growth in Anaerobic bottle after 48 hours. 01/26/23 13:40 Aerobic Blood Culture - Preliminary Blood No growth in Aerobic bottle after 48 hours. Anaerobic Blood Culture - Preliminary No growth in Anaerobic bottle after 48 hours. 01/27/23 Unknown Gram Stain - Final Sputum, Expectorated Sputum Culture - Preliminary Light normal harsha present, final report to follow. Diagnostic Findings (Past 24 Hours) Chest X-Ray 01/28/23 16:08 XR chest 1V portable CLINICAL HISTORY: left lung decreased BS, tachypnea COMPARISON STUDY: Chest radiograph and chest CT January 26, 2023. FINDINGS: Median sternotomy wires. Extensive left lung airspace opacity with diminished aeration of the left lung and volume loss has progressed since prior chest radiograph and chest CT. There is a small left pleural effusion. There is no pneumothorax. Trace right pleural effusion is noted. Right lower lung airspace opacity persists. There is underlying emphysema. IMPRESSION: 1. Progression of extensive left lung airspace opacity with volume loss. This favors pneumonia or aspiration pneumonitis. Given degree of volume loss, consideration might be given to further evaluation with bronchoscopy. Radiographic follow-up to ensure resolution is recommended. Findings discussed with Dr. Gill at time of dictation. 2. Right lower lung airspace opacities suggestive of pneumonia or aspiration pneumonitis. 3. Small left and trace right pleural effusions. 4. Emphysema. ACT 112: Negative or not required by law. Electronically signed by: Peter Alexandre M.D. 01/28/2023 6:30 PM Chest X-Ray 01/29/23 07:00 XR chest 1V portable CLINICAL HISTORY: atelectasis COMPARISON STUDY: Chest CT January 26, 2023. Chest radiograph January 28, 2022 at 8:29 PM. FINDINGS: There is no pneumothorax. A small left pleural effusion is noted. Bilateral airspace opacities are greater within the left lung. Left lung aeration has mildly improved since prior chest radiograph and significantly improved since chest radiograph performed at 4:13 PM on January 28. Diffuse interstitial thickening is noted. There is underlying emphysema. Cardiomediastinal silhouette is stable. IMPRESSION: 1. Interval improvement in left lung aeration. Bilateral airspace opacities, greater on the left. The findings may reflect pneumonia or atelectasis. 2. Small left pleural effusion. No pneumothorax. 3. Interstitial thickening. This may reflect an infectious process or pulmonary edema. ACT 112: Negative or not required by law. Electronically signed by: Peter Alexandre M.D. 01/29/2023 6:57 AM I & O Totals 24 Hours 01/28/23 01/29/23 01/30/23 06:59 06:59 06:59 Intake Total 200 / 200 675.833 / 675.833 Output Total 651 / 651 452 / 452 Balance -451 / -451 223.833 / 223.833 Cumulative 01/26/23 13:07 thru 01/29/23 06:04 Intake Total 2952.500 Output Total 1378 Balance 1574.500 RT Ventilator Mngmt (Last Documented) Ventilator Ordered Settings Respiratory Rate 26 01/29/23 07:10 Fraction of Inspired Oxygen 70 01/29/23 07:10 Ventilator - PT Measurements Respiratory Rate 26 Coding Level of Care Code 69847 SUB INP/OBS CARE 3/50MIN Diagnoses Acute respiratory failure with hypoxia and hypercapnia J96.01; J96.02 COPD (chronic obstructive pulmonary disease) J44.9 Pneumonia J18.9 Laterality: bilateral Lung location: lower lobe of lung Pneumonia type: due to unspecified organism Atelectasis J98.11 (3) Pneumonia Laterality: bilateral Lung location: lower lobe of lung Pneumonia type: due to unspecified organism Qualified Code(s): J18.9 - Pneumonia, unspecified organism
--- NOTE | 2023-01-29 08:07 | XRay Report ---
XR chest 1V portable CLINICAL HISTORY: post bronchoscopy- eval for pneumothorax COMPARISON STUDY: Chest radiograph performed earlier today. FINDINGS: There is no pneumothorax following bronchoscopy. Left lung aeration has improved. A left pl eural effusion is noted. Bilateral airspace opacities are greater within the left lung. There is inte rstitial thickening. Median sternotomy wires are noted. IMPRESSION: 1. No pneumothorax status post bronchoscopy. Interval improvement in left lung aeration. 2. Bilateral airspace opacities, greater within the left lung. The findings may reflect pneumonia or atelectasis. Small left pleural effusion. 3. Interstitial thickening which favors mild pulmonary edema. ACT 112: Negative or not required by law. Electronically signed by: Peter Alexandre M.D. 01/29/2023 8:06 AM
[2023-01-29] MEDS: oxyCODONE HCL IR 5 MG TAB (IMMEDIATE RELEASE) PO PRN ×4 (08:18→23:22)
[2023-01-29] MEDS: PANTOprazole 40 MG TAB PO SCH ×2 (08:19→21:17)
[2023-01-29] MEDS: MONTELUKAST SODIUM 10 MG TABLET PO SCH (08:19)
[2023-01-29] MEDS: UMECLIDINIUM BROMIDE 62.5MCG/BLISTER 7 PUFFS/INHALER INH SCH (08:19)
[2023-01-29] MEDS: guaiFENesin 600 MG TABCR PO SCH ×2 (08:19→21:17)
[2023-01-29] MEDS: DOXYCYCLINE HYCLATE 100 MG CAP PO SCH ×2 (08:19→21:17)
[2023-01-29] MEDS: LIDOCAINE 5% 1 PATCH TD SCH (08:20)
--- NOTE | 2023-01-29 09:32 | Electrocardiogram Report ---
Test Reason : Blood Pressure : / mmHG Vent. Rate : 135 BPM Atrial Rate : 129 BPM P-R Int : 000 ms QRS Dur : 084 ms QT Int : 392 ms P-R-T Axes : 000 084 070 degrees QTc Int : 588 ms Poor data quality, interpretation may be adversely affected Probable Sinus tachycardia with Premature atrial complexes and Premature ventricular complexes Nonspecific ST and T wave abnormality Abnormal ECG When compared with ECG of 26-JAN-2023 19:57, Nonspecific T wave abnormality now evident in Lateral leads HR has increased by 24 bpm Confirmed by Rajiv De La Rosa ([id number]) on 01/29/2023 9:31:56 AM Referred By: Martin Joshi Confirmed By:Rajiv De La Rosa
--- NOTE | 2023-01-29 09:33 | Electrocardiogram Report ---
Test Reason : Blood Pressure : / mmHG Vent. Rate : 186 BPM Atrial Rate : 500 BPM P-R Int : 000 ms QRS Dur : 090 ms QT Int : 262 ms P-R-T Axes : 000 087 254 degrees QTc Int : 461 ms Poor data quality, interpretation may be adversely affected Atrial flutter with rapid ventricular response Diffuse Nonspecific ST and T wave abnormality Abnormal ECG When compared with ECG of 28-JAN-2023 16:22, Atrial flutter now present HR has increased by 51 bpm Confirmed by Rajiv De La Rosa ([id number]) on 01/29/2023 9:33:03 AM Referred By: Martin Joshi Confirmed By:Rajiv De La Rosa
--- NOTE | 2023-01-29 12:07 | Hospitalist Progress Note ---
Date of Service January 29, 2023 Assessment & Plan (1) Collapse of left lung: Plan: Had known mucous plugging of the LLL which then progressed to most of the entire left lung. Urgent transfer to ICU yesterday afternoon followed by urgent bronchoscopy by Dr Cole. His efforts are much appreciated. Mucous plugs were found in both mainstem bronchi s/p removal. Respiratory status was tenuous post-bronch despite improved cxr, but today she is MUCH better. Cont aggressive pulmonary toilet as below. (2) Severe sepsis: Plan: 2nd to b/l pneumonia s/p fluids at ER presentation along with other supportive care measures had significant lactic acidosis at ER presentation - resolved remains on broad-spectrum IV abx including cefepime blood cx's remain negative (3) Acute respiratory failure with hypoxia and hypercapnia: Plan: 2nd to severe b/l pneumonia with collapse of the left lung as in #1 above s/p bronch yesterday with removal of b/l mucous plugs cont HFNC wall-mounted, o2 sat goals 88-92% cont duonebs qid, mucinex, nebulized mucomyst, saline nebs, and chest PT continue flutter valve continue IV antibiotics appreciate Dr Cole's assistance ok to stepdown from ICU to PCU today (4) Atrial flutter with rapid ventricular response: Plan: rates to 180-190 last pm following her bronch fortunately it broke and sinus heart rates trended towards 100 and less I consulted Dr De La Rosa today in light of the severity of this event will start amiodarone 200mg BID to maintain sinus rhythm will likely have to lower the metoprolol dose or stop it CHADs-VASc is high - will need to address such (5) COPD (chronic obstructive pulmonary disease): Plan: PFTs 2021 - moderate obstruction, severely reduced DLCO at baseline Mild wheezing today -- defer on systemic steroids still but consider if wheezing worsens Cont duonebs & other modalities as above Cont home inhalers (6) Mucus plugging of bronchi: Plan: see #1 (7) Pneumonia: Plan: b/l likely bacterial superinfection in the setting of rhinovirus infection cont cefepime - day #4 cont doxycycline - day #3 deferring on MRSA coverage - MRSA BONE TENDER swab negative supportive care measures as above droplet precautions due to rhinovirus infection (8) Rhinovirus infection: Plan: droplet precautions supportive care (9) BRITTNEY (acute kidney injury): Plan: sepsis-associated ATN / dehydration Creatinine on admission 1.6 Cr now normal repeat BMP am cont to hold SHUBHAM inhibitor (10) Elevated troponin: Plan: likely 2nd to myocardial demand ischemia in the setting of severe sepsis no evidence of ACS despite her EKG findings echo with preserved EF and normal LV wall motion peak troponin 382 with trend downward thereafter (11) NSVT (nonsustained ventricular tachycardia): Plan: 10-beat run 01/27/23 asymptomatic was lying in bed keep K close to 4 and mag close to 2 echo with preserved EF and normal LV wall motion (12) Hypomagnesemia: Plan: repleted resolved (13) Severe protein-calorie malnutrition: Plan: recent colonoscopy with polyps but no colon cancer CT chest findings noted could consider CT abd/pelvis later in this stay to rule out other pathology but need to focus on pulmonary issues if CT is pursued and nothing is found on CT a/p - chronic cachexia due to severe COPD?? (14) History of nicotine dependence: (15) CAD (coronary artery disease): Plan: 2005 cath - by report - nonobstructive CAD? stress echocardiogram 2013 - no ischemia troponin elevations noted this admission EKG findings noted (T wave inversions anteroseptal leads - transiently) echo with preserved EF and no regional WMA ideally she has ischemic evaluation once she is over this illness cont plavix cont metoprolol cont lipitor (16) Hypertension: Plan: BPs satisfactory at this time cont beta jelly cont to hold SHUBHAM (17) S/P mitral valve replacement with bioprosthetic valve: Plan: 2005 echo findings noted (18) History of aortic valve repair: Plan: 2005 findings from echo noted (19) Abnormal EKG: Plan: deep T wave inversions anteroseptal leads last cath 2005? I do not have that report last stress test 2013? these tests are noted in the record but I don't have those reports (20) Elevated INR: Plan: likely 2nd to vit K def s/p vit K x 2 with normalization of INR Plan DVT proph - lovenox will ultimately need PT/OT but still too ill to request those consults - perhaps tomorrow pt's significant other updated by phone yesterday transfer back to PCU later today Admission and Anticipated Discharge Date Admission Date: January 26, 2023 Subjective events of last 24 hours noted after arrival to ICU she had urgent bronchoscopy with removal of multiple mucous plugs from both mainstem bronchi no endobronchial lesions seen following the bronch she had rapid a.flutter with rates to 180-190 requiring IV lopressor and IV dig she dropped her BPs with this she also required high-flow NC thru the night but this has been weaned down during rounds she says she "feels so much better" still with considerable cough no sputum this am still with dyspnea appetite slightly improved Review of Systems Review of Systems: gen - weak, fatigued cv - no chest pain GI - no abd pain or N/V Physical Exam Physical Exam: gen - chronically ill-appearing; cachectic, awake/alert; looks better than yesterday neck - no JVD mouth - MMM, no lesions or thrush heart - RRR, s1 s2, no murmur lungs - significantly improved BS on left vs yesterday's exam; still decreased bottom of LLL; crackles b/l; mild end-exp wheeze abd - soft NT ND BS+ ext - no ankle edema, pulses 2+ b/l psych - a/o x 3 Results & Data Results & Data Vital Signs (Past 12 Hours) Vital Signs Temp Pulse Pulse Resp BP Pulse Ox O2 Del Method 01/29/23 11:27 84 22 93 High Flow Nasal Cannula 01/29/23 10:21 82 01/29/23 10:00 105 H 24 95 01/29/23 10:00 119/59 L 01/29/23 09:30 82 26 H 96 01/29/23 09:30 120/48 L 01/29/23 09:00 83 27 H 01/29/23 09:00 121/44 L 01/29/23 08:31 126/60 01/29/23 08:31 82 29 H 90 01/29/23 08:00 87 30 H 93 01/29/23 08:00 132/84 01/29/23 07:30 78 22 96 01/29/23 07:30 137/53 L 01/29/23 08:36 High Flow Nasal Cannula 01/29/23 07:00 83 24 95 01/29/23 07:00 129/54 L 01/29/23 06:30 88 23 95 01/29/23 06:30 134/55 L 01/29/23 07:10 87 26 H 100 High Flow Nasal Cannula 01/29/23 04:00 36.5 C 01/29/23 06:00 86 27 H 114/57 L 95 01/29/23 05:42 149 H 116/85 01/29/23 05:00 88 24 134/50 L 96 01/29/23 04:00 159 H 24 118/84 98 01/29/23 03:00 152 H 33 H 118/69 96 01/29/23 05:34 170 H 116/85 01/29/23 03:03 109 H 118/69 01/29/23 02:54 161 H 88/52 L 01/29/23 02:13 156 H 30 H 93 High Flow Nasal Cannula 01/29/23 02:00 147 H 32 H 114/75 89 L 01/29/23 01:00 142 H 28 H 72/46 L 93 01/29/23 00:20 97 H 97/56 L O2 Flow Rate FiO2 01/29/23 11:27 25 55 01/29/23 10:21 01/29/23 10:00 01/29/23 10:00 01/29/23 09:30 01/29/23 09:30 01/29/23 09:00 01/29/23 09:00 01/29/23 08:31 01/29/23 08:31 01/29/23 08:00 01/29/23 08:00 01/29/23 07:30 01/29/23 07:30 01/29/23 08:36 30 50 01/29/23 07:00 01/29/23 07:00 01/29/23 06:30 01/29/23 06:30 01/29/23 07:10 25 70 01/29/23 04:00 01/29/23 06:00 01/29/23 05:42 01/29/23 05:00 01/29/23 04:00 01/29/23 03:00 01/29/23 05:34 01/29/23 03:03 01/29/23 02:54 01/29/23 02:13 25 70 01/29/23 02:00 01/29/23 01:00 01/29/23 00:20 Laboratory Results Laboratory Results - last 24 hr 01/29/23 01/29/23 04:02 04:02 WBC 8.30 RBC 4.64 Hgb 13.1 Hct 38.8 MCV 83.6 MCH 28.2 MCHC 33.8 RDW Std Deviation 42.2 RDW Coeff of Claudette 13.9 Plt Count 148 MPV 10.6 Immature Gran % (Auto) 1.1 Neut % (Auto) 84.6 Lymph % (Auto) 7.5 [place] % (Auto) 6.5 Eos % (Auto) 0.1 Baso % (Auto) 0.2 Neut # (Auto) 7.02 H Lymph # (Auto) 0.62 L [place] # (Auto) 0.54 Eos # (Auto) 0.01 Baso # (Auto) 0.02 Immature Gran # (Auto) 0.09 Sodium 131 L Potassium 4.3 Chloride 98 Carbon Dioxide 27 Anion Gap 6 BUN 21 Creatinine 0.58 L Est Cr Clr Drug Dosing 63.5 Est GFR ( Amer) 115.3 Est GFR (Non-Af Amer) 99.5 BUN/Creatinine Ratio 36.2 H Glucose 99 Calcium 8.4 L Magnesium 2.0 Total Bilirubin 0.9 AST 49 H ALT 35 Alkaline Phosphatase 99 Total Protein 6.0 Albumin 2.8 L Globulin 3.2 Albumin/Globulin Ratio 0.9 PG Care Time/CCT Total # of Minutes Spent Total Time Spent with Patient: Total time spent is greater than 50% in coordination of care (as documented) at patient's floor/unit and/or counseling patient: Coding Level of Care Code 38430 SUB INP/OBS CARE 3/50MIN Diagnoses Collapse of left lung J98.11 Severe sepsis A41.9; R65.20 Acute respiratory failure with hypoxia and hypercapnia J96.01; J96.02 Atrial flutter with rapid ventricular response I48.92 COPD (chronic obstructive pulmonary disease) J44.9 Mucus plugging of bronchi T17.500A Pneumonia J18.9 Laterality: bilateral Lung location: lower lobe of lung Pneumonia type: due to unspecified organism Rhinovirus infection B34.8 BRITTNEY (acute kidney injury) N17.9 Elevated troponin R77.8 NSVT (nonsustained ventricular tachycardia) I47.29 Hypomagnesemia E83.42 Severe protein-calorie malnutrition E43 History of nicotine dependence Z87.891 CAD (coronary artery disease) I25.10 Hypertension I10 S/P mitral valve replacement with bioprosthetic valve Z95.3 History of aortic valve repair Z98.890; Z86.79 Abnormal EKG R94.31 Elevated INR R79.1 (7) Pneumonia Laterality: bilateral Lung location: lower lobe of lung Pneumonia type: due to unspecified organism Qualified Code(s): J18.9 - Pneumonia, unspecified organism
[2023-01-29] MEDS ORDERED: METOPROLOL TARTRATE 25 MG TAB PO SCH (14:00)
[2023-01-29] MEDS ORDERED: AMIODARONE 200 MG TAB PO ONE ×2 (14:04→21:00)
--- NOTE | 2023-01-29 14:44 | Cardiology Consultation ---
Date of Consultation January 29, 2023 Assessment & Plan (1) Atrial flutter with rapid ventricular response: (2) Acute respiratory failure with hypoxia: (3) COPD (chronic obstructive pulmonary disease): (4) (HFpEF) heart failure with preserved ejection fraction: (5) Elevated troponin: (6) History of aortic valve repair: (7) S/P mitral valve replacement with bioprosthetic valve: (8) CAD (coronary artery disease): Plan Complex patient with multiple comorbidities who is improving clinically, but who is likely to poorly tolerate any recurrent tachydysrhythmias given her very limited cardiac and pulmonary reserve. Therefore, recommend initiation of amiodarone 200 mg twice daily to prevent recurrent atrial tachydysrhythmias, would discontinue metoprolol to avoid bradycardia. Avoiding higher amiodarone loading dose given her low BMI, however she does develop recurrent tachydysrhythmia could utilize IV amiodarone. Appears euvolemic to minimally hypervolemic, continue to monitor fluid status with low threshold for IV diuretic if respiratory status declines. Fortunately, her systolic function is currently favorable and her prior valvular replacement/repair is functioning appropriately. Troponin elevation not surprising given CAD (previously not major) with marked hemodynamic derangements due to respiratory failure, most consistent with demand ischemia. No specific work-up in the absence of chest pain or ischemic ECG changes (only nonspecific ST abnormalities thus far). History of Present Illness Reason for Consultation: Atrial dysrhythmias, respiratory failure Requesting Physician: Juan Ramon Gill MD Attending Physician: Juan Ramon Gill MD History of Present Illness 62-year-old woman with severe COPD , HFpEF, PSVT, status post porcine mitral valve replacement with aortic valve repair 2005 (no major CAD) with moderate residual aortic regurgitation and subsequent cardiomyopathy (EF variable at 35- 60%) who was admitted 01/18/2023 with acute respiratory failure with hypoxia and hypercapnia secondary to left lower lobe pneumonia with severe mucous plugging who developed atrial flutter with rapid ventricular response (up to 186 bpm) yesterday. I believe her PSVT was remote (possibly perioperatively 2005), recent cardiology encounters have been for heart failure admissions (August 2022 and early December 2022) and she has been followed in heart failure clinic. Symptoms this hospitalization are primarily dyspnea, she feels she might have sensed tachypalpitations but denied any associated chest pain, lightheadedness, presyncope, or syncope. She was treated with digoxin and metoprolol and her rhythm returned to sinus/mild sinus tachycardia. At the time of my evaluation this morning she felt weak but denied any dyspnea at rest and had no chest pain, palpitations, or other complaints. Allergies Allergy/AdvReac Type Severity Reaction Status Date / Time aspirin Allergy Intermediate Hives Verified 01/19/23 11:26 hydrochlorothiazide Allergy Intermediate RASH/"Sick Verified 01/19/23 11:26 in stomach" trazodone AdvReac Severe Vomiting Verified 01/19/23 11:26 tramadol AdvReac Mild Nausea Verified 01/19/23 11:26 Home Medications Medication Instructions Recorded Confirmed Type nitroglycerin 0.4 mg sublingual See Rx Instructions .Route 11/09/18 01/19/23 History tablet .COMPLEX PRN Chest Pain albuterol sulfate 2.5 mg/3 mL See Rx Instructions .Route 01/17/19 01/19/23 History (0.083 %) solution for nebulization .COMPLEX PRN SOB albuterol sulfate 90 mcg/actuation See Rx Instructions .Route 01/17/19 01/19/23 History aerosol inhaler .COMPLEX PRN SOB ipratropium bromide 0.02 % See Rx Instructions .Route 01/17/19 01/19/23 History solution for inhalation .COMPLEX PRN SOB cholecalciferol (vitamin D3) 50 4,000 units PO QAM 05/21/19 01/19/23 History mcg (2,000 unit) tablet (Vitamin D3) cyanocobalamin (vitamin B-12) 1,000 mcg PO QAM 05/21/19 01/19/23 History 1,000 mcg tablet lisinopril 2.5 mg tablet 2.5 mg PO QAM #90 tabs 03/28/22 01/26/23 Rx atorvastatin 40 mg tablet 40 mg PO QPM #90 tabs 04/15/22 01/26/23 Rx clopidogrel 75 mg tablet 75 mg PO QPM #90 tabs 05/03/22 01/26/23 Rx gabapentin 300 mg capsule 600 mg PO BID #360 caps 06/09/22 01/26/23 Rx folic acid 1 mg tablet 1 mg PO QAM #90 tabs 11/24/22 01/26/23 Rx montelukast 10 mg tablet 10 mg PO QAM #90 tabs 12/08/22 01/26/23 Rx pantoprazole 40 mg tablet,delayed 40 mg PO BID #90 tabs 12/12/22 01/26/23 Rx release mirtazapine 15 mg tablet 15 mg PO HS 01/07/23 01/26/23 History furosemide 20 mg tablet (Lasix) 20 mg PO QAM 01/11/23 01/26/23 History potassium chloride 10 mEq 10 meq PO QAM 01/11/23 01/26/23 History capsule,extended release spironolactone 25 mg tablet 25 mg PO QAM 01/11/23 01/26/23 History oxycodone 5 mg tablet See Rx Instructions PO Q4H PRN 01/18/23 01/26/23 Rx pain #100 tabs fluticasone 250 mcg-salmeterol 50 See Rx Instructions .Route .COMPLEX 01/26/23 History mcg/dose blistr powdr for inhalation (Advair Diskus) lorazepam 0.5 mg tablet 0.5 mg PO HS PRN Other 01/26/23 01/26/23 History metoprolol succinate 25 mg 12.5 mg PO QAM 01/26/23 01/26/23 History tablet,extended release 24 hr trazodone 50 - 100 mg PO HS PRN Sleep 01/26/23 01/26/23 History Patient History Medical History Abnormal EKG Acute on chronic diastolic CHF (congestive heart failure) recent diagnosis 01/07/23 at [facility]--pt states she is improving Anxiety Arthritis Bilateral pleural effusion hx CAD (coronary artery disease) Cholecystitis Chronic back pain + neck Chronic combined systolic (congestive) and diastolic (congestive) heart failure Chronic dyspnea oxygen prn Depression Diastolic CHF Elevated troponin Emphysema/COPD inhaler daily/prn, nebulizer prn Fibromyalgia GERD (gastroesophageal reflux disease) History of aortic valve disease s/p AVR (2005) History of nicotine dependence Hyperlipidemia Hyperlipidemia Hypertension Ischemic stroke Remote hx per records (?11/2018) Mitral valve disease s/p MVR (2005) On anticoagulant therapy plavix daily---MVR/AVR--follows with [facility] On home oxygen therapy 2L O2 HS + PRN Osteoporosis Peripheral neuropathy Positive colorectal cancer screening using Cologuard test per pt reason for scheduled colonoscopy Positive colorectal cancer screening using Cologuard test Pulmonary hypertension Transient ischemic attack (TIA) 2019--no deficits, followed with Dr. Plummer (cleared) follows with PCP and cardiology Surgical History H/O: hysterectomy History of bronchoscopy History of colonoscopy History of esophagogastroduodenoscopy (EGD) History of heart valve replacement AVR (2005) History of lung biopsy Hx laparoscopic cholecystectomy (01/13/21) Laparoscopic Cholecystectomy Dr. Pulido 01-13-2021 S/P mitral valve replacement with bioprosthetic valve 2005 Family History Mother Slow to wake up after anesthesia Sister Family history of diabetes mellitus Father Stroke Other Coronary heart disease Denies family history of Ovarian cancer Prostate cancer Breast cancer Colorectal cancer Social History Smoking Status: Former smoker Tobacco Type: Cigarettes Age Started Using Tobacco: 18; packs per day: 0.5; Smoking End Date: 2019; Second Hand Exposure: Yes (FAMILY SMOKED); Do You Dip or Chew Tobacco: No; Hx Alcohol Use: No Hx Substance Use: No Preferred Language: [place] Communication Ability: Effective Hearing Ability: Normal Veneer Redrier Required: No Beliefs That Will Affect Care: None marital status: Current Living Situation: Family Current Living Situation Comment: son lives w/ her current occupational status: unemployed and disabled How many Children do You have: 2 Other Information That Helps Us Care for You: No Feels Safe at Home: Yes Safety Concerns: Feels Safe At This Time Childhood Exposure to Second-Hand Smoke: Yes Diet: regular during the past year weight has: decreased > 10 lbs Dental Care, Regularly: No Physical Activity Frequency: 3-4 Times per Week Seatbelt Use: always Sunscreen Use: Yes Assistive Devices: Oxygen - at Night Assistive Devices Comment: oxygen as needed at home Physical Exam Physical Exam: Appears frail but not acutely distressed. BP normotensive. Pulse 106 bpm and regular. skin: No unusual rash, systemic lesions, or ecchymoses. HEENT: Unremarkable. Neck: Jugular venous pulse correction to the angle of the jaw at 90 degrees with increased respiratory variation. No carotid bruits. Lungs: Markedly decreased breath sounds with left greater than right basilar crackles, no obvious wheezing or accessory muscle use. Cardiac: Regular rhythm with faint heart sounds, 2/6 basal systolic ejection murmur with intact aortic closure sound, despite known aortic insufficiency no obvious diastolic murmur. Abdomen: Benign. Extremities: No edema, peripheral pulses intact Neurologic: Normal affect and conversation, grossly nonfocal. Results & Data Laboratory Results Sodium 131, otherwise normal electrolytes, BUN 21, creatinine 0.58. Troponin 277 rising to 382 before dropping to 197. Not remeasured yesterday during her tachydysrhythmia. Diagnostic Findings Chest x-ray today showed bilateral airspace opacities greater on the left small left pleural effusion and interstitial thickening. ECG on admission showed sinus tachycardia 137 bpm with right atrial abnormality, minor nonspecific ST-T wave abnormalities. Further ECGs that day showed no significant change. ECG yesterday showed sinus tachycardia [address]-T wave abnormalities. An ECG later in the day showed atrial flutter with rapid ventricular response of 186 bpm. Echocardiogram 01/27/2023 showed EF 55 to 60% with no wall motion abnormalities or LVH, bioprosthetic mitral valve showed mildly elevated transvalvular gradient, aortic valve functioning appropriately with no aortic stenosis but with moderate aortic regurgitation. PG Care Time/CCT Total # of Minutes Spent Total Time Spent with Patient: Total time spent is greater than 50% in coordination of care (as documented) at patient's floor/unit and/or counseling patient: Coding Level of Care Code 69672 IN/OBS CONSULT LVL 4,60M Diagnoses Atrial flutter with rapid ventricular response I48.92 Acute respiratory failure with hypoxia J96.01 COPD (chronic obstructive pulmonary disease) J44.9 (HFpEF) heart failure with preserved ejection fraction I50.30 Elevated troponin R77.8 History of aortic valve repair Z98.890; Z86.79 S/P mitral valve replacement with bioprosthetic valve Z95.3 CAD (coronary artery disease) I25.10
[2023-01-29] MEDS: cefTRIAXone SODIUM 2,000 MG in DEXTROSE 5% 50 ML IV SCH (19:30)
[2023-01-29] MEDS: METOPROLOL TARTRATE 25 MG TAB PO SCH (21:16)
[2023-01-29] MEDS: CLOPIDOGREL BISULFATE 75 MG TAB PO SCH (21:17)
[2023-01-29] MEDS: ENOXAPARIN INJ 30 MG/0.3 ML SYR SQ SCH (21:17)
[2023-01-29] MEDS: ATORVASTATIN 40 MG TAB PO SCH (21:17)
[2023-01-30] MEDS: oxyCODONE HCL IR 5 MG TAB (IMMEDIATE RELEASE) PO PRN ×6 (03:23→23:21)
[2023-01-30 06:19] LABS: BUN Creatinine Ratio 30.8 (10-20); Calcium 8.1 mg/dl (8.6-10.3); Creatinine Clr Calc Pharmacy 69.2 ml/min; Est GFR (African American) 119.5 ml/min; Est GFR (Non-African American) 103.1 ml/min; Potassium 3.6 mmol/L (3.5-5.1)
[2023-01-30] MEDS: ACETYLCYSTEINE 10% INHAL SOLN 4 ML **DISPENSED BY RESP. INH SCH ×2 (07:21→19:47)
[2023-01-30] MEDS: FORMOTEROL 20 MCG/2 ML VIAL NEB SCH ×2 (07:21→19:44)
[2023-01-30] MEDS: ALBUT/IPRATROP 3MG/0.5MG NEB 3 ML VIAL NEB SCH ×4 (07:21→19:45)
[2023-01-30] MEDS: SODIUM CHLOR 7% 4 ML NEB NEB SCH ×2 (07:21→19:44)
[2023-01-30] MEDS: PANTOprazole 40 MG TAB PO SCH ×2 (08:01→20:49)
[2023-01-30] MEDS: guaiFENesin 600 MG TABCR PO SCH ×2 (08:01→20:48)
[2023-01-30] MEDS: UMECLIDINIUM BROMIDE 62.5MCG/BLISTER 7 PUFFS/INHALER INH SCH (08:01)
[2023-01-30] MEDS: METOPROLOL TARTRATE 25 MG TAB PO SCH ×2 (08:01→20:49)
[2023-01-30] MEDS: DOXYCYCLINE HYCLATE 100 MG CAP PO SCH ×2 (08:01→20:49)
[2023-01-30] MEDS: MONTELUKAST SODIUM 10 MG TABLET PO SCH (08:02)
[2023-01-30] MEDS: LIDOCAINE 5% 1 PATCH TD SCH (08:02)
[2023-01-30] MEDS: AMIODARONE 200 MG TAB PO SCH ×2 (11:23→16:15)
--- NOTE | 2023-01-30 12:15 | Pulmonology Progress Note ---
Date of Service January 30, 2023 Assessment & Plan (1) Acute respiratory failure with hypoxia and hypercapnia: (2) COPD (chronic obstructive pulmonary disease): (3) Pneumonia: Laterality: bilateral Lung location: lower lobe of lung Pneumonia type: due to unspecified organism Qualified Code(s): J18.9 - Pneumonia, unspecified organism (4) Atelectasis: Plan Impression: 62-year-old female with moderate obstructive lung disease with left lower lobe pneumonia and severe mucous plugging of the left lower lobe bronchi. She clinically worsened with atelectasis of greater than 80% of her lung yesterday and was transferred emergently to the ICU. She underwent bronchoscopy with therapeutic aspiration of secretions. She initially did well but post procedurally developed tachycardia which may have been multifocal atrial tachycardia. This did respond to beta-blockers. She is hemodynamically stable and doing well from a respiratory standpoint this morning. CT chest 01/26/2023 personally reviewed: Centrilobular emphysema appreciated bilaterally Dense consolidative process appreciated in the left lower lobe as well as right lower lobe with mucous plugging on the left lower lobe Cardiomegaly Minimal mediastinal lymphadenopathy -- Mucous plugging S/p bronchoscopy 01/28/2023 Continue with pulmonary toileting with hypertonic saline, flutter valve as well as Mucinex Sputum culture negative to date chest --Acute on chronic hypercapnic hypoxic respiratory failure At baseline 2-3 L oxygen at home Multifactorial Multilobar pneumonia with mucous plugging Procalcitonin 78.64 Respiratory bio fire negative for everything except for entero-/rhinovirus Nasal MRSA negative --COPD with emphysema On Advair at home Plan:- Continue with hypertonic saline nebulized, Mucinex, chest vest therapy as well as flutter valve Continue with inhaled bronchodilators along with nebulizers Complete the course of antibiotics for 7 days Please note the above document was generated using voice recognition software. It may contain grammatical, syntax or spelling errors.Any formal questions or concerns about the content, text or information contained within the body of this dictation should be directly addressed to the provider for clarification. Admission and Anticipated Discharge Date Admission Date: January 26, 2023 Subjective Patient seen and examined at bedside. No acute distress, no adverse events overnight Case was discussed with outgoing equipment tester At the time of examination patient was saturating 92-93% on 6 L nasal cannula. I went down to 5 L. Overall she says she is feeling better Bringing up phlegm which is dark brown in color Denies any nausea vomiting Fair appetite No headache Review of Systems Review of Systems: All systems reviewed & are unremarkable except as noted in Subjective Physical Exam Physical Exam: Constitutional: No acute distress HEENT: EOMI, PERRLA, frail-appearing Respiratory system: Decreased air entry bilaterally, more decreased on the left side, no wheeze, no rhonchi, positive crackles bilaterally CVS: S1-S2 positive, no murmurs or gallops Abdomen: Soft, nontender, nondistended, positive bowel sounds x4 Extremities: +2 pulses bilaterally radialis/ dorsalis pedis, no cyanosis, no edema Neuro: Awake alert oriented x3 Psych: Normal mood and affect G/U: No Jimenez Skin: no rashes, warm and dry Lymphatic: no cervical or axillary lymphadenopathy Results & Data Results & Data Vital Signs (Past 12 Hours) Vital Signs Temp Pulse Pulse Resp BP Pulse Ox O2 Del Method 01/30/23 11:54 86 L 01/30/23 11:26 96 High Flow Nasal Cannula 01/30/23 11:06 110 H 22 95 Nasal Cannula 01/30/23 07:33 108 H 22 93 Nasal Cannula 01/30/23 07:32 111 H 01/30/23 07:32 High Flow Nasal Cannula 01/30/23 07:08 36.9 C 114 H 17 169/82 H 93 Nasal Cannula 01/30/23 02:23 36.8 C 87 20 131/61 92 High Flow Nasal Cannula 01/30/23 01:43 100 H O2 Flow Rate 01/30/23 11:54 4 01/30/23 11:26 8 01/30/23 11:06 7 01/30/23 07:33 7 01/30/23 07:32 01/30/23 07:32 8 01/30/23 07:08 7.0 01/30/23 02:23 7 01/30/23 01:43 Laboratory Results 01/29/23 04:02 01/30/23 05:18 PG Care Time/CCT Total # of Minutes Spent Total Time Spent with Patient: Total time spent is greater than 50% in coordination of care (as documented) at patient's floor/unit and/or counseling patient: Coding Level of Care Code 62582 SUB INP/OBS CARE 3/50MIN Diagnoses Acute respiratory failure with hypoxia and hypercapnia J96.01; J96.02 COPD (chronic obstructive pulmonary disease) J44.9 Pneumonia J18.9 Laterality: bilateral Lung location: lower lobe of lung Pneumonia type: due to unspecified organism Atelectasis J98.11
--- NOTE | 2023-01-30 16:57 | Cardiology Progress Note ---
Date of Service January 30, 2023 Assessment & Plan (1) Atrial flutter with rapid ventricular response: (2) Acute respiratory failure with hypoxia: (3) COPD (chronic obstructive pulmonary disease): (4) (HFpEF) heart failure with preserved ejection fraction: (5) Elevated troponin: (6) History of aortic valve repair: (7) S/P mitral valve replacement with bioprosthetic valve: (8) CAD (coronary artery disease): Plan 1. Atrial fibrillation: No recurrence. She is continuing on low-dose amiodarone. Heart rate varies according to activity. Generally a sinus tachycardia. From systemic anticoagulation for stroke risk reduction. Valve replacement, she has valvular atrial fibrillation and generally would be advised to start warfarin as anticoagulation. 2. Bioprosthetic mitral valve with mildly elevated transvalvular gradient. 3. Heart failure with preserved ejection fraction: Difficult to quantify her volume status. No edema. Lung examination is certainly not normal. Think would be reasonable to simply restart her daily Lasix and spironolactone. Her sodium is in the morning. Admission and Anticipated Discharge Date Admission Date: January 26, 2023 Subjective This afternoon the patient stated that her breathing was improved. She was actually ambulatory to the bathroom and back. She did have some dyspnea, but much improved from admission. She denies any sense of palpitation. She did not report dizziness or lightheadedness. Review of Systems Review of Systems: Per HPI Physical Exam Physical Exam: She is alert and oriented x3. Mood affect appear normal. She answered all questions appropriately. Thin, cachectic HEENT: Sclerae are anicteric. Pupils are equal and reactive to light and accommodation. Extraocular movements were intact. Neuro: Cranial nerves intact Lungs: Distant lung sounds overall with prolonged expiratory phase. No expiratory wheezing. No rales. Cardiac: The rhythm was regular. S1 and S2 were normal. Crescendo systolic murmur. The PMI was not markedly displaced on palpation. Extremities: Patient has bilateral radial pulses that are equal in intensity. There is no evidence cyanosis or clubbing. There was no evidence of significant peripheral edema bilaterally. Skin: There are no rashes noted on examination today. Results & Data Vital Signs (Past 12 Hours) Vital Signs Temp Pulse Pulse Resp BP Pulse Ox O2 Del Method 01/30/23 16:00 112 H 01/30/23 15:08 36.9 C 114 H 20 125/69 91 Nasal Cannula 01/30/23 15:00 110 H 20 96 Nasal Cannula 01/30/23 12:20 37.1 C 113 H 20 135/68 95 Nasal Cannula 01/30/23 11:54 86 L 01/30/23 11:26 96 High Flow Nasal Cannula 01/30/23 11:06 110 H 22 95 Nasal Cannula 01/30/23 07:33 108 H 22 93 Nasal Cannula 01/30/23 07:32 111 H 01/30/23 07:32 High Flow Nasal Cannula 01/30/23 07:08 36.9 C 114 H 17 169/82 H 93 Nasal Cannula O2 Flow Rate 01/30/23 16:00 01/30/23 15:08 6 01/30/23 15:00 5 01/30/23 12:20 7.0 01/30/23 11:54 4 01/30/23 11:26 8 01/30/23 11:06 7 01/30/23 07:33 7 01/30/23 07:32 01/30/23 07:32 8 01/30/23 07:08 7.0 Laboratory Results Abnormal Lab Results 01/30/23 01/30/23 01/30/23 05:18 05:18 15:00 Sodium 132 L Potassium 3.6 Chloride 99 Carbon Dioxide 29 Anion Gap 4 BUN 16 Creatinine 0.52 L Est Cr Clr Drug Dosing 69.2 Est GFR ( Amer) 119.5 Est GFR (Non-Af Amer) 103.1 BUN/Creatinine Ratio 30.8 H Glucose 101 H Osmolality 279 L Calcium 8.1 L Urine Osmolality 694 Ur Random Sodium 01/30/23 15:00 Sodium Potassium Chloride Carbon Dioxide Anion Gap BUN Creatinine Est Cr Clr Drug Dosing Est GFR ( Amer) Est GFR (Non-Af Amer) BUN/Creatinine Ratio Glucose Osmolality Calcium Urine Osmolality Ur Random Sodium 23 Diagnostic Findings 01/27/2023: Normal LV systolic function with ejection fraction 55-60%. Mild left atrial dilation. Bioprosthetic aortic valve with slightly elevated transvalvular gradient. Moderate aortic regurgitation. PG Care Time/CCT Total # of Minutes Spent Total Time Spent with Patient: Total time spent is greater than 50% in coordination of care (as documented) at patient's floor/unit and/or counseling patient: Coding Level of Care Code 31347 SUB INP/OBS CARE 2/35MIN Diagnoses Atrial flutter with rapid ventricular response I48.92 Acute respiratory failure with hypoxia J96.01 COPD (chronic obstructive pulmonary disease) J44.9 (HFpEF) heart failure with preserved ejection fraction I50.30 Elevated troponin R77.8 History of aortic valve repair Z98.890; Z86.79 S/P mitral valve replacement with bioprosthetic valve Z95.3 CAD (coronary artery disease) I25.10
[2023-01-30] MEDS: cefTRIAXone SODIUM 2,000 MG in DEXTROSE 5% 50 ML IV SCH (17:21)
[2023-01-30] MEDS ORDERED: SODIUM CHLORIDE 0.65% NA SOLN 45 ML (OCEAN) PRN (20:25)
[2023-01-30] MEDS: ENOXAPARIN INJ 30 MG/0.3 ML SYR SQ SCH (20:48)
[2023-01-30] MEDS: ATORVASTATIN 40 MG TAB PO SCH (20:49)
[2023-01-30] MEDS: CLOPIDOGREL BISULFATE 75 MG TAB PO SCH (20:49)
--- NOTE | 2023-01-30 21:09 | Hospitalist Progress Note ---
Date of Service January 30, 2023 Assessment & Plan (1) Collapse of left lung: Plan: 01/28/23 - near complete collapse of the left lung. s/p urgent transfer to ICU followed by urgent bronchoscopy by Dr Cole. Mucous plugs were found in both mainstem bronchi s/p removal. Respiratory status was tenuous post-bronch. Required vapotherm post-bronch. This was weaned to wall-mounted high-flow on 01/29. Cont aggressive pulmonary toilet. Cont chest PT. Cont bronchodilators, etc. Appreciate pulmonary assistance. (2) Severe sepsis: Plan: 2nd to b/l pneumonia blood cx's remain negative. had been on cefepime with doxy. now rocephin with doxy. MRSA swab neg. respiratory culture neg. (3) Acute respiratory failure with hypoxia and hypercapnia: Plan: 2nd to severe b/l pneumonia with collapse of the left lung as in #1 above - IMPROVING s/p bronch 01/28 with removal of b/l mucous plugs cont HFNC wall-mounted, o2 sat goals 88-92% cont duonebs qid, mucinex, nebulized mucomyst, saline nebs, and chest PT continue flutter valve continue IV/PO antibiotics (4) Atrial flutter with rapid ventricular response: Plan: rates to 180-190 following her bronch on 01/28/23 fortunately it broke and sinus heart rates trended towards 100 and less [place] [facility] [place] started on amiodarone 200mg BID to maintain sinus rhythm will likely have to lower the metoprolol dose or stop it thus far tolerating metoprolol 25mg BID CHADs-VASc is high - did broach anticoagulation with her today will need to address further over the next few days resume lasix 20mg daily (5) COPD (chronic obstructive pulmonary disease): Plan: PFTs 2021 - moderate obstruction, severely reduced DLCO at baseline Cont duonebs & other modalities as above Cont home inhalers Minimal wheezing on exam but if any worsening consider systemic steroids (6) Mucus plugging of bronchi: Plan: see #1 above (7) Pneumonia: Plan: b/l likely bacterial superinfection in the setting of rhinovirus infection s/p cefepime x 3 days - now discontinued now on rocephin - day #2 of such cont doxycycline - day #4 deferring on MRSA coverage - MRSA 3RD PRESSMAN swab negative plan 7-10 days of IV/PO abx given the severity of her pneumonia supportive care measures as above droplet precautions due to rhinovirus infection (8) Rhinovirus infection: Plan: droplet precautions supportive care (9) BRITTNEY (acute kidney injury): Plan: resolved sepsis-associated ATN / dehydration Creatinine on admission 1.6 Cr now normal repeat BMP am SHUBHAM inhibitor remains on hold (10) Elevated troponin: Plan: likely 2nd to myocardial demand ischemia in the setting of severe sepsis no evidence of ACS despite her EKG findings echo with preserved EF and normal LV wall motion peak troponin 382 with trend downward thereafter (11) NSVT (nonsustained ventricular tachycardia): Plan: 10-beat run 01/27/23 asymptomatic was lying in bed keep K close to 4 and mag close to 2 echo this admission with preserved EF and normal LV wall motion (12) Hypomagnesemia: Plan: repleted resolved (13) Severe protein-calorie malnutrition: Plan: recent colonoscopy with polyps but no colon cancer CT chest findings noted could consider CT abd/pelvis later in this stay to rule out other pathology but need to focus on pulmonary issues if CT is pursued and nothing is found on CT a/p - chronic cachexia due to severe COPD?? add MVI add boost (14) History of nicotine dependence: (15) CAD (coronary artery disease): Plan: 2005 cath - by report - nonobstructive CAD? stress echocardiogram 2013 - no ischemia troponin elevations noted this admission EKG findings noted (T wave inversions anteroseptal leads - transiently) echo with preserved EF and no regional WMA ideally she has ischemic evaluation in the future cont plavix cont metoprolol cont lipitor (16) Hypertension: Plan: BPs satisfactory at this time cont beta jelly cont to hold SHUBHAM (17) S/P mitral valve replacement with bioprosthetic valve: Plan: 2006 echo findings noted (18) History of aortic valve repair: Plan: 2005 findings from echo noted (19) Abnormal EKG: Plan: deep T wave inversions anteroseptal leads last cath 2005? I do not have that report last stress test 2013? these tests are noted in the record but I don't have those reports (20) Elevated INR: Plan: likely 2nd to vit K def s/p vit K x 2 with normalization of INR (21) Cervicalgia: Plan: cont lidoderm patches tylenol prn consider voltaren gel if steroids are used for COPD this will help her posterior neck pain as well she denies any recent fall to suggest trauma, fracture, etc Plan DVT proph - lovenox consult PT/OT since she is improving globally appreciate pulmonary & cardiology assistance Admission and Anticipated Discharge Date Admission Date: January 26, 2023 Subjective sitting in bed watching TV during my visit remains with sinus tach on monitors but no PAF, SVT, or a flutter "I feel so much better" still with cough still with mild FERNANDEZ but overall improved appetite very poor, however remains weak NC O2 has been weaned once again today continues with pain over her right paraspinal neck muscles posteriorly Review of Systems Review of Systems: gen - no fevers; weak, fatigue, anorexia cv - no chest pain or pleuritic pain pulm - cough, congestion, mild wheeze, FERNANDEZ GI - no pain/nausea/emesis Physical Exam Physical Exam: gen - chronically ill-appearing; cachectic, awake/alert; looks tired, but best she has looked since hospital day #1 neck - no JVD; tender paraspinal muscles posterior R neck along with trapezius muscle tenderness; muscle wasting noted about each shoulder mouth - MMM, no lesions or thrush heart - RRR, s1 s2, no murmur lungs - extensive crackles on left extending 1/[address] up back, mild rales R base, coughing; minimal end-exp wheezes; no increased work of breathing abd - soft NT ND BS+ ext - no ankle edema, pulses 2+ b/l psych - a/o x 3 Results & Data Results & Data Vital Signs (Past 12 Hours) Vital Signs Temp Pulse Pulse Resp BP BP Pulse Ox 01/30/23 19:54 36.6 C 112 H 18 154/72 H 93 01/30/23 19:47 116 H 18 92 01/30/23 16:00 112 H 01/30/23 15:08 36.9 C 114 H 20 125/69 91 01/30/23 15:00 110 H 20 96 01/30/23 12:20 37.1 C 113 H 20 135/68 95 01/30/23 11:54 86 L 01/30/23 11:26 96 01/30/23 11:06 110 H 22 95 O2 Del Method O2 Flow Rate 01/30/23 19:54 Nasal Cannula 6 01/30/23 19:47 Nasal Cannula 4 01/30/23 16:00 01/30/23 15:08 Nasal Cannula 6 01/30/23 15:00 Nasal Cannula 5 01/30/23 12:20 Nasal Cannula 7.0 01/30/23 11:54 4 01/30/23 11:26 High Flow Nasal Cannula 8 01/30/23 11:06 Nasal Cannula 7 Laboratory Results Laboratory Results - last 24 hr 01/30/23 01/30/23 01/30/23 05:18 05:18 15:00 Sodium 132 L Potassium 3.6 Chloride 99 Carbon Dioxide 29 Anion Gap 4 BUN 16 Creatinine 0.52 L Est Cr Clr Drug Dosing 69.2 Est GFR ( Amer) 119.5 Est GFR (Non-Af Amer) 103.1 BUN/Creatinine Ratio 30.8 H Glucose 101 H Osmolality 279 L Calcium 8.1 L Urine Osmolality 694 Ur Random Sodium 01/30/23 15:00 Sodium Potassium Chloride Carbon Dioxide Anion Gap BUN Creatinine Est Cr Clr Drug Dosing Est GFR ( Amer) Est GFR (Non-Af Amer) BUN/Creatinine Ratio Glucose Osmolality Calcium Urine Osmolality Ur Random Sodium 23 PG Care Time/CCT Total # of Minutes Spent Total Time Spent with Patient: Total time spent is greater than 50% in coordination of care (as documented) at patient's floor/unit and/or counseling patient: Coding Level of Care Code 02511 SUB INP/OBS CARE 2/35MIN Diagnoses Collapse of left lung J98.11 Severe sepsis A41.9; R65.20 Acute respiratory failure with hypoxia and hypercapnia J96.01; J96.02 Atrial flutter with rapid ventricular response I48.92 COPD (chronic obstructive pulmonary disease) J44.9 Mucus plugging of bronchi T17.500A Pneumonia J18.9 Laterality: bilateral Lung location: lower lobe of lung Pneumonia type: due to unspecified organism Rhinovirus infection B34.8 BRITTNEY (acute kidney injury) N17.9 Elevated troponin R77.8 NSVT (nonsustained ventricular tachycardia) I47.29 Hypomagnesemia E83.42 Severe protein-calorie malnutrition E43 History of nicotine dependence Z87.891 CAD (coronary artery disease) I25.10 Hypertension I10 S/P mitral valve replacement with bioprosthetic valve Z95.3 History of aortic valve repair Z98.890; Z86.79 Abnormal EKG R94.31 Elevated INR R79.1 Cervicalgia M54.2 (7) Pneumonia Laterality: bilateral Lung location: lower lobe of lung Pneumonia type: due to unspecified organism Qualified Code(s): J18.9 - Pneumonia, unspecified organism
[2023-01-31] MEDS: oxyCODONE HCL IR 5 MG TAB (IMMEDIATE RELEASE) PO PRN ×5 (04:13→21:20)
[2023-01-31] MEDS: FORMOTEROL 20 MCG/2 ML VIAL NEB SCH ×2 (07:17→19:27)
[2023-01-31] MEDS: SODIUM CHLOR 7% 4 ML NEB NEB SCH ×2 (07:17→19:27)
[2023-01-31] MEDS: ACETYLCYSTEINE 10% INHAL SOLN 4 ML **DISPENSED BY RESP. INH SCH ×2 (07:17→19:30)
[2023-01-31] MEDS: ALBUT/IPRATROP 3MG/0.5MG NEB 3 ML VIAL NEB SCH ×4 (07:18→19:30)
[2023-01-31 07:27] LABS: Calcium 8.5 mg/dl (8.6-10.3); Creatinine Clr Calc Pharmacy 61.4 ml/min; Est GFR (Non-African American) 98.4 ml/min; Potassium 3.5 mmol/L (3.5-5.1)
--- NOTE | 2023-01-31 07:40 | Pulmonology Progress Note ---
Date of Service January 31, 2023 Assessment & Plan (1) Acute respiratory failure with hypoxia and hypercapnia: (2) COPD (chronic obstructive pulmonary disease): (3) Pneumonia: Laterality: bilateral Lung location: lower lobe of lung Pneumonia type: due to unspecified organism Qualified Code(s): J18.9 - Pneumonia, unspecified organism (4) Atelectasis: Plan Impression: 62-year-old female with moderate obstructive lung disease with left lower lobe pneumonia and severe mucous plugging of the left lower lobe bronchi. She clinically worsened with atelectasis of greater than 80% of her lung yesterday and was transferred emergently to the ICU. She underwent bronchoscopy with therapeutic aspiration of secretions. She initially did well but post procedurally developed tachycardia which may have been multifocal atrial tachycardia. This did respond to beta-blockers. She is hemodynamically stable and doing well from a respiratory standpoint this morning. CT chest 01/26/2023 personally reviewed: Centrilobular emphysema appreciated bilaterally Dense consolidative process appreciated in the left lower lobe as well as right lower lobe with mucous plugging on the left lower lobe Cardiomegaly Minimal mediastinal lymphadenopathy -- Mucous plugging S/p bronchoscopy 01/28/2023 Continue with pulmonary toileting with hypertonic saline, flutter valve as well as Mucinex Sputum culture negative to date chest --Acute on chronic hypercapnic hypoxic respiratory failure At baseline 2-3 L oxygen at home Multifactorial Multilobar pneumonia with mucous plugging Procalcitonin 78.64 Respiratory bio fire negative for everything except for entero-/rhinovirus Nasal MRSA negative --COPD with emphysema On Advair at home Plan:- Chest x-ray from today does show improvement in the left-sided opacities, left lower lobe still not completely open Continue with hypertonic saline nebulized, Mucinex, chest vest therapy as well as flutter valve Continue with inhaled bronchodilators along with nebulizers Complete the course of antibiotics for 7 days Case was discussed with RN at bedside Please note the above document was generated using voice recognition software. It may contain grammatical, syntax or spelling errors.Any formal questions or concerns about the content, text or information contained within the body of this dictation should be directly addressed to the provider for clarification. Admission and Anticipated Discharge Date Admission Date: January 26, 2023 Subjective Patient seen and examined at bedside. No acute distress, no adverse events overnight. She was saturating 93% on 4 L nasal cannula. We went down to 3 L. Overall she says she is feeling better compared to when she came to the hospital Still complaining of cough bringing up phlegm. Denies any chest pain Her appetite is very poor. She is not eating much Denies any headache Review of Systems Review of Systems: All systems reviewed & are unremarkable except as noted in Subjective Physical Exam Physical Exam: Constitutional: No acute distress HEENT: EOMI, PERRLA, frail-appearing Respiratory system: Decreased air entry bilaterally, more decreased on the left side, no wheeze, no rhonchi, positive crackles bilaterally CVS: S1-S2 positive, no murmurs or gallops Abdomen: Soft, nontender, nondistended, positive bowel sounds x4 Extremities: +2 pulses bilaterally radialis/ dorsalis pedis, no cyanosis, no edema Neuro: Awake alert oriented x3 Psych: Normal mood and affect G/U: No Jimenez Skin: no rashes, warm and dry Lymphatic: no cervical or axillary lymphadenopathy Results & Data Results & Data Vital Signs (Past 12 Hours) Vital Signs Temp Pulse Pulse Resp BP BP Pulse Ox 01/31/23 07:00 111 H 01/31/23 07:18 99 H 18 97 01/31/23 00:00 107 H 01/31/23 03:01 36.4 C L 106 H 18 145/92 H 93 01/30/23 23:24 36.6 C 91 H 18 139/65 90 01/30/23 20:25 01/30/23 19:54 36.6 C 112 H 18 154/72 H 93 01/30/23 19:47 116 H 18 92 O2 Del Method O2 Flow Rate 01/31/23 07:00 01/31/23 07:18 Nasal Cannula 6 01/31/23 00:00 01/31/23 03:01 High Flow Nasal Cannula 5 01/30/23 23:24 High Flow Nasal Cannula 5 01/30/23 20:25 High Flow Nasal Cannula 4 01/30/23 19:54 Nasal Cannula 6 01/30/23 19:47 Nasal Cannula 4 Laboratory Results 01/29/23 04:02 01/31/23 05:38 PG Care Time/CCT Total # of Minutes Spent Total Time Spent with Patient: Total time spent is greater than 50% in coordination of care (as documented) at patient's floor/unit and/or counseling patient: Coding Level of Care Code 17719 SUB INP/OBS CARE 235MIN Diagnoses Acute respiratory failure with hypoxia and hypercapnia J96.01; J96.02 COPD (chronic obstructive pulmonary disease) J44.9 Pneumonia J18.9 Laterality: bilateral Lung location: lower lobe of lung Pneumonia type: due to unspecified organism Atelectasis J98.11
--- NOTE | 2023-01-31 08:05 | XRay Report ---
XR chest 1V portable CLINICAL HISTORY: f/u COMPARISON STUDY: Chest CT January 26, 2023. Chest radiograph January 29, 2023. FINDINGS: There is no pneumothorax. Small left pleural effusion has slightly decreased. Interstitial thickening persists. Bilateral airspace opacities, greater within the left lung, are again noted. The se are similar to prior exam. There are median sternotomy wires. Cardiomediastinal silhouette is stab le. IMPRESSION: 1. No significant change in bilateral airspace opacities, greater within the left lung. The findings favor pneumonia. 2. Persistent interstitial thickening suggestive of pulmonary edema. 3. Small left pleural effusion. No pneumothorax. ACT 112: Negative or not required by law. Electronically signed by: Peter Alexandre M.D. 01/31/2023 8:04 AM
[2023-01-31] MEDS: DOXYCYCLINE HYCLATE 100 MG CAP PO SCH ×2 (08:19→20:20)
[2023-01-31] MEDS: guaiFENesin 600 MG TABCR PO SCH ×2 (08:19→20:20)
[2023-01-31] MEDS: METOPROLOL TARTRATE 25 MG TAB PO SCH ×2 (08:19→20:20)
[2023-01-31] MEDS: MONTELUKAST SODIUM 10 MG TABLET PO SCH (08:20)
[2023-01-31] MEDS: PANTOprazole 40 MG TAB PO SCH ×2 (08:20→20:20)
[2023-01-31] MEDS: LIDOCAINE 5% 1 PATCH TD SCH (08:20)
[2023-01-31] MEDS: UMECLIDINIUM BROMIDE 62.5MCG/BLISTER 7 PUFFS/INHALER INH SCH (08:21)
[2023-01-31] MEDS: FUROSEMIDE 20 MG TAB PO SCH (08:21)
[2023-01-31] MEDS: AMIODARONE 200 MG TAB PO SCH ×2 (10:06→17:17)
[2023-01-31] MEDS ORDERED: ONDANSETRON INJ 2 MG/ML 2 ML VIAL IV PRN (10:26)
[2023-01-31] MEDS: CEROVITE ADV FORMULA TAB PO SCH (15:25)
[2023-01-31] MEDS ORDERED: METOPROLOL TARTRATE 1 MG/ML VIAL IV STA ×2 (15:58→17:45)
--- NOTE | 2023-01-31 16:33 | Cardiology Progress Note ---
Date of Service January 31, 2023 Assessment & Plan (1) Atrial flutter with rapid ventricular response: (2) Acute respiratory failure with hypoxia: (3) COPD (chronic obstructive pulmonary disease): (4) (HFpEF) heart failure with preserved ejection fraction: (5) Elevated troponin: (6) History of aortic valve repair: (7) S/P mitral valve replacement with bioprosthetic valve: (8) CAD (coronary artery disease): Plan 1. Atrial fibrillation: She was doing well until this afternoon when she had some recurrent atrial fibrillation. I think we will give her some p.r.n. doses of beta-blockade and increase her amiodarone load. Based on her history of mitral valve replacement, she would benefit from being with systemic anticoagulation with warfarin. 2. Bioprosthetic mitral valve with mildly elevated transvalvular gradient. 3. Heart failure with preserved ejection fraction: Difficult to quantify her volume status. No edema. Lung examination is certainly not normal. Think would be reasonable to simply restart her daily Lasix and spironolactone. Admission and Anticipated Discharge Date Admission Date: January 26, 2023 Subjective This afternoon the patient claimed to have ups and Downs. Currently receiving a breathing treatment. Minimal ambulation in activity. No dizziness or lightheadedness. No sense of palpitation. No chest pain. Review of Systems Review of Systems: Per HPI Physical Exam Physical Exam: She is alert and oriented x3. Mood affect appear normal. She answered all questions appropriately. Thin, cachectic HEENT: Sclerae are anicteric. Pupils are equal and reactive to light and accommodation. Extraocular movements were intact. Neuro: Cranial nerves intact Lungs: Distant lung sounds overall with prolonged expiratory phase. No expiratory wheezing. No rales. Cardiac: The rhythm was regular. S1 and S2 were normal. Crescendo systolic murmur. The PMI was not markedly displaced on palpation. Extremities: Patient has bilateral radial pulses that are equal in intensity. There is no evidence cyanosis or clubbing. There was no evidence of significant peripheral edema bilaterally. Skin: There are no rashes noted on examination today. Results & Data Vital Signs (Past 12 Hours) Vital Signs Temp Pulse Pulse Resp BP BP Pulse Ox 01/31/23 15:54 36.8 C 155 H 20 109/75 01/31/23 16:03 167 H 109/75 01/31/23 15:05 119 H 18 94 10/03/23 13:56 01/31/23 11:34 107 H 18 90 01/31/23 11:16 36.8 C 107 H 19 138/78 96 01/31/23 08:00 01/31/23 07:36 36.9 C 118 H 20 151/72 H 95 01/31/23 07:00 111 H 01/31/23 07:18 99 H 18 97 Pulse Ox O2 Del Method O2 Flow Rate O2 Flow Rate 01/31/23 15:54 Nasal Cannula 4.0 01/31/23 16:03 01/31/23 15:05 Nasal Cannula 4 01/31/23 13:56 86 L 3 01/31/23 11:34 Nasal Cannula 3 01/31/23 11:16 Nasal Cannula 3.0 01/31/23 08:00 Nasal Cannula 4 01/31/23 07:36 Nasal Cannula 4.0 01/31/23 07:00 01/31/23 07:18 Nasal Cannula 6 Laboratory Results Abnormal Lab Results 01/31/23 01/31/23 05:33 05:38 Sodium 133 L Potassium 3.5 Chloride 97 L Carbon Dioxide 31 Anion Gap 5 BUN 15 Creatinine 0.60 Est Cr Clr Drug Dosing 61.4 Est GFR ( Amer) 114.0 Est GFR (Non-Af Amer) 98.4 BUN/Creatinine Ratio 25.0 H Glucose 112 H Calcium 8.5 L B-Natriuretic Peptide 1398 H PG Care Time/CCT Total # of Minutes Spent Total Time Spent with Patient: Total time spent is greater than 50% in coordination of care (as documented) at patient's floor/unit and/or counseling patient: Coding Level of Care Code 44199 SUB INP/OBS CARE 2/35MIN Diagnoses Atrial flutter with rapid ventricular response I48.92 Acute respiratory failure with hypoxia J96.01 COPD (chronic obstructive pulmonary disease) J44.9 (HFpEF) heart failure with preserved ejection fraction I50.30 Elevated troponin R77.8 History of aortic valve repair Z98.890; Z86.79 S/P mitral valve replacement with bioprosthetic valve Z95.3 CAD (coronary artery disease) I25.10
[2023-01-31] MEDS: cefTRIAXone SODIUM 2,000 MG in DEXTROSE 5% 50 ML IV SCH (18:00)
[2023-01-31] MEDS: MEGESTROL ACETATE SUSP 400 MG/10 ML UDC PO SCH (20:19)
[2023-01-31] MEDS: ATORVASTATIN 40 MG TAB PO SCH (20:20)
[2023-01-31] MEDS: CLOPIDOGREL BISULFATE 75 MG TAB PO SCH (20:20)
[2023-01-31] MEDS: ENOXAPARIN INJ 30 MG/0.3 ML SYR SQ SCH (20:21)
--- NOTE | 2023-01-31 22:49 | Hospitalist Progress Note ---
Date of Service January 31, 2023 Assessment & Plan (1) Collapse of left lung: Plan: 01/28/23 - near complete collapse of the left lung. s/p urgent transfer to ICU followed by urgent bronchoscopy by Dr Cole. Mucous plugs were found in both mainstem bronchi s/p removal. Respiratory status was tenuous post-bronch. Required vapotherm post-bronch. This was weaned to wall-mounted high-flow on 01/29. On nasal cannula 4 liters on 01/31 Cont aggressive pulmonary toilet. Cont chest PT. Cont bronchodilators, etc. Appreciate pulmonary assistance. (2) Severe sepsis: Plan: 2nd to b/l pneumonia blood cx's remain negative. had been on cefepime with doxy. now rocephin with doxy. MRSA swab neg. respiratory culture neg. (3) Acute respiratory failure with hypoxia and hypercapnia: Plan: 2nd to severe b/l pneumonia with collapse of the left lung as in #1 above - IMPROVING s/p bronch 01/28 with removal of b/l mucous plugs cont HFNC wall-mounted, o2 sat goals 88-92% cont duonebs qid, mucinex, nebulized mucomyst, saline nebs, and chest PT continue flutter valve continue IV/PO antibiotics (4) Atrial flutter with rapid ventricular response: Plan: rates to 180-190 following her bronch on 01/28/23 fortunately it broke and sinus heart rates trended towards 100 and less seen by [facility] Cardiology started on amiodarone 200mg BID to maintain sinus rhythm will likely have to lower the metoprolol dose or stop it thus far tolerating metoprolol 25mg BID CHADs-VASc is high - did broach anticoagulation with her today will need to address further over the next few days resume lasix 20mg daily Patient required 10 mg of IV metoprolol to help break HR. Was in 160s on 01/31 (5) COPD (chronic obstructive pulmonary disease): Plan: PFTs 2021 - moderate obstruction, severely reduced DLCO at baseline Cont duonebs & other modalities as above Cont home inhalers Minimal wheezing on exam but if any worsening consider systemic steroids (6) Mucus plugging of bronchi: Plan: see #1 above (7) Pneumonia: Plan: b/l likely bacterial superinfection in the setting of rhinovirus infection s/p cefepime x 3 days - now discontinued now on rocephin - day #2 of such cont doxycycline - day #4 deferring on MRSA coverage - MRSA [facility] swab negative plan 7-10 days of IV/PO abx given the severity of her pneumonia supportive care measures as above droplet precautions due to rhinovirus infection (8) Rhinovirus infection: Plan: droplet precautions supportive care (9) BRITTNEY (acute kidney injury): Plan: resolved sepsis-associated ATN / dehydration Creatinine on admission 1.6 Cr now normal repeat BMP am SHUBHAM inhibitor remains on hold (10) Elevated troponin: Plan: likely 2nd to myocardial demand ischemia in the setting of severe sepsis no evidence of ACS despite her EKG findings echo with preserved EF and normal LV wall motion peak troponin 382 with trend downward thereafter (11) NSVT (nonsustained ventricular tachycardia): Plan: 10-beat run 01/27/23 asymptomatic was lying in bed keep K close to 4 and mag close to 2 echo this admission with preserved EF and normal LV wall motion (12) Hypomagnesemia: Plan: repleted resolved (13) Severe protein-calorie malnutrition: Plan: recent colonoscopy with polyps but no colon cancer CT chest findings noted could consider CT abd/pelvis later in this stay to rule out other pathology but need to focus on pulmonary issues if CT is pursued and nothing is found on CT a/p - chronic cachexia due to severe COPD?? add MVI add boost Added megace on 01/31 (14) History of nicotine dependence: (15) CAD (coronary artery disease): Plan: 2005 cath - by report - nonobstructive CAD? stress echocardiogram 2013 - no ischemia troponin elevations noted this admission EKG findings noted (T wave inversions anteroseptal leads - transiently) echo with preserved EF and no regional WMA ideally she has ischemic evaluation in the future cont plavix cont metoprolol cont lipitor (16) Hypertension: Plan: BPs satisfactory at this time cont beta jelly cont to hold SHUBHAM (17) S/P mitral valve replacement with bioprosthetic valve: Plan: 2005 echo findings noted (18) History of aortic valve repair: Plan: 2005 findings from echo noted (19) Abnormal EKG: Plan: deep T wave inversions anteroseptal leads last cath 2005? I do not have that report last stress test 2013? these tests are noted in the record but I don't have those reports (20) Elevated INR: Plan: likely 2nd to vit K def s/p vit K x 2 with normalization of INR (21) Cervicalgia: Plan: cont lidoderm patches tylenol prn consider voltaren gel if steroids are used for COPD this will help her posterior neck pain as well she denies any recent fall to suggest trauma, fracture, etc Plan DVT proph - lovenox consult PT/OT since she is improving globally appreciate pulmonary & cardiology assistance Admission and Anticipated Discharge Date Admission Date: January 26, 2023 Subjective Patient is doing well. Marysolsamson reedtalia her appetite is slightlybetter today. Patient has no new compliants. Nurse called me in afternoon to report that her heart rate was in the 160s Review of Systems Review of Systems: All systems reviewed & are unremarkable except as noted in HPI & below Physical Exam Physical Exam: gen - chronically ill-appearing; cachectic, awake/alert; neck - no JVD; tender paraspinal muscles posterior R neck along with trapezius muscle tenderness; muscle wasting noted about each shoulder mouth - MMM, no lesions or thrush heart - RRR, s1 s2, no murmur lungs - extensive crackles on left extending 1/[address] up back, mild rales R base, coughing; minimal end-exp wheezes; no increased work of breathing abd - soft NT ND BS+ ext - no ankle edema, pulses 2+ b/l psych - a/o x 3 Results & Data Results & Data Vital Signs (Past 12 Hours) Vital Signs Temp Pulse Pulse Resp BP BP BP 01/31/23 22:30 36.6 C 102 H 16 119/61 01/31/23 19:39 01/31/23 19:31 116 H 16 01/31/23 19:11 36.6 C 106 H 20 138/71 01/31/23 18:00 01/31/23 16:00 114 H 01/31/23 18:01 110 H 155/85 H 01/31/23 17:46 116 H 148/82 H 01/31/23 16:20 112 H 155/70 H 01/31/23 16:46 112 H 23 155/73 H 01/31/23 15:54 36.8 C 155 H 20 109/75 01/31/23 16:03 167 H 109/75 01/31/23 15:05 119 H 18 01/31/23 13:56 01/31/23 11:34 107 H 18 01/31/23 11:16 36.8 C 107 H 19 138/78 Pulse Ox Pulse Ox Pulse Ox O2 Del Method O2 Del Method O2 Flow Rate O2 Flow Rate 01/31/23 22:30 91 Nasal Cannula 4 01/31/23 19:39 Nasal Cannula 4 01/31/23 19:31 94 Nasal Cannula 4 01/31/23 19:11 96 Nasal Cannula 4 01/31/23 18:00 95 Nasal Cannula 4 01/31/23 16:00 01/31/23 18:01 01/31/23 17:46 01/31/23 16:20 01/31/23 16:46 94 Nasal Cannula 4 01/31/23 15:54 Nasal Cannula 4.0 01/31/23 16:03 01/31/23 15:05 94 Nasal Cannula 4 01/31/23 13:56 86 L 01/31/23 11:34 90 Nasal Cannula 3 01/31/23 11:16 96 Nasal Cannula 3.0 O2 Flow Rate 01/31/23 22:30 01/31/23 19:39 01/31/23 19:31 01/31/23 19:11 01/31/23 18:00 01/31/23 16:00 01/31/23 18:01 01/31/23 17:46 01/31/23 16:20 01/31/23 16:46 01/31/23 15:54 01/31/23 16:03 01/31/23 15:05 01/31/23 13:56 3 01/31/23 11:34 01/31/23 11:16 PG Care Time/CCT Total # of Minutes Spent Total Time Spent with Patient: Total time spent is greater than 50% in coordination of care (as documented) at patient's floor/unit and/or counseling patient: Coding Level of Care Code 54453 SUB INP/OBS CARE 3/50MIN Diagnoses Collapse of left lung J98.11 Severe sepsis A41.9; R65.20 Acute respiratory failure with hypoxia and hypercapnia J96.01; J96.02 Atrial flutter with rapid ventricular response I48.92 COPD (chronic obstructive pulmonary disease) J44.9 Mucus plugging of bronchi T17.500A Pneumonia J18.9 Laterality: bilateral Lung location: lower lobe of lung Pneumonia type: due to unspecified organism Rhinovirus infection B34.8 BRITTNEY (acute kidney injury) N17.9 Elevated troponin R77.8 NSVT (nonsustained ventricular tachycardia) I47.29 Hypomagnesemia E83.42 Severe protein-calorie malnutrition E43 History of nicotine dependence Z87.891 CAD (coronary artery disease) I25.10 Hypertension I10 S/P mitral valve replacement with bioprosthetic valve Z95.3 History of aortic valve repair Z98.890; Z86.79 Abnormal EKG R94.31 Elevated INR R79.1 Cervicalgia M54.2 (7) Pneumonia Laterality: bilateral Lung location: lower lobe of lung Pneumonia type: due to unspecified organism Qualified Code(s): J18.9 - Pneumonia, unspecified organism
[2023-02-01] MEDS: oxyCODONE HCL IR 5 MG TAB (IMMEDIATE RELEASE) PO PRN ×5 (01:17→22:47)
[2023-02-01 06:21] LABS: Hematocrit (blood only) 35.4 % (37.0-47.0); Hemoglobin 11.9 g/dl (12.0-16.0); Mean Corpuscular Hemoglobin 28.1 pg (25.0-34.0); Mean Corpuscular Hgb Conc 33.6 g/dL (32.0-36.0); Mean Corpuscular Volume 83.5 fL (80.0-100.0); Mean Platelet Volume 10.2 fL (9.4-12.4); Platelet Count 148 K/uL (130-400); RDW Coefficient of Variation 13.6 % (11.5-14.5); RDW Standard Deviation 41.5 fL (36.4-46.3); Red Blood Count 4.24 M/uL (4.20-5.40); White Blood Count 8.57 K/ul (4.8-10.8)
[2023-02-01 06:52] LABS: BUN Creatinine Ratio 27.5 (10-20); Calcium 8.5 mg/dl (8.6-10.3); Creatinine Clr Calc Pharmacy 72.1 ml/min; Est GFR (African American) 120.3 ml/min; Est GFR (Non-African American) 103.8 ml/min; Potassium 3.1 mmol/L (3.5-5.1)
[2023-02-01] MEDS: ALBUT/IPRATROP 3MG/0.5MG NEB 3 ML VIAL NEB SCH ×4 (07:05→19:13)
[2023-02-01] MEDS: SODIUM CHLOR 7% 4 ML NEB NEB SCH ×2 (07:05→19:13)
[2023-02-01] MEDS: ACETYLCYSTEINE 10% INHAL SOLN 4 ML **DISPENSED BY RESP. INH SCH ×2 (07:05→19:13)
[2023-02-01] MEDS: FORMOTEROL 20 MCG/2 ML VIAL NEB SCH ×2 (07:05→19:13)
--- NOTE | 2023-02-01 08:54 | Pulmonology Progress Note ---
Date of Service February 01, 2023 Assessment & Plan (1) Acute respiratory failure with hypoxia and hypercapnia: (2) COPD (chronic obstructive pulmonary disease): (3) Pneumonia: Laterality: bilateral Lung location: lower lobe of lung Pneumonia type: due to unspecified organism Qualified Code(s): J18.9 - Pneumonia, unspecified organism (4) Atelectasis: Plan Impression: 62-year-old female with moderate obstructive lung disease with left lower lobe pneumonia and severe mucous plugging of the left lower lobe bronchi. She clinically worsened with atelectasis of greater than 80% of her lung yesterday and was transferred emergently to the ICU. She underwent bronchoscopy with therapeutic aspiration of secretions. She initially did well but post procedurally developed tachycardia which may have been multifocal atrial tachycardia. This did respond to beta-blockers. She is hemodynamically stable and doing well from a respiratory standpoint this morning. CT chest 01/26/2023 personally reviewed: Centrilobular emphysema appreciated bilaterally Dense consolidative process appreciated in the left lower lobe as well as right lower lobe with mucous plugging on the left lower lobe Cardiomegaly Minimal mediastinal lymphadenopathy -- Mucous plugging S/p bronchoscopy 01/28/2023 Continue with pulmonary toileting with hypertonic saline, flutter valve as well as Mucinex Sputum culture negative to date --Acute on chronic hypercapnic hypoxic respiratory failure At baseline 2-3 L oxygen at home Multifactorial Multilobar pneumonia with mucous plugging Procalcitonin 78.64 Respiratory bio fire negative for everything except for entero-/rhinovirus Nasal MRSA negative --COPD with emphysema On Advair at home Plan:- Continue with hypertonic saline nebulized, Mucinex, chest vest therapy as well as flutter valve Continue with inhaled bronchodilators along with nebulizers Complete the course of antibiotics for 7 days Case was discussed with RN at bedside Please note the above document was generated using voice recognition software. It may contain grammatical, syntax or spelling errors.Any formal questions or concerns about the content, text or information contained within the body of this dictation should be directly addressed to the provider for clarification. Admission and Anticipated Discharge Date Admission Date: January 26, 2023 Subjective Patient seen and examined at bedside. No acute distress, no adverse events overnight Patient was saturating 94% on 6 L, I went down to 4 L. Appetite is poor. She is not eating well Denies any headache, no nausea, no vomiting Has been bringing up phlegm. No hemoptysis Shortness of breath is at baseline Review of Systems Review of Systems: All systems reviewed & are unremarkable except as noted in Subjective Physical Exam Physical Exam: Constitutional: No acute distress HEENT: EOMI, PERRLA, frail-appearing Respiratory system: Decreased air entry bilaterally, more decreased on the left side, no wheeze, no rhonchi, positive crackles bilaterally CVS: S1-S2 positive, no murmurs or gallops Abdomen: Soft, nontender, nondistended, positive bowel sounds x4 Extremities: +2 pulses bilaterally radialis/ dorsalis pedis, no cyanosis, no edema Neuro: Awake alert oriented x3 Psych: Normal mood and affect G/U: No Jimenez Skin: no rashes, warm and dry Lymphatic: no cervical or axillary lymphadenopathy Results & Data Results & Data Vital Signs (Past 12 Hours) Vital Signs Temp Pulse Pulse Resp BP Pulse Ox O2 Del Method 02/01/23 08:31 36.8 C 105 H 18 146/75 H 95 High Flow Nasal Cannula 02/01/23 07:47 109 H 02/01/23 07:10 99 H 16 94 Nasal Cannula 02/01/23 02:58 36.7 C 112 H 20 125/69 90 Nasal Cannula 02/01/23 00:00 100 H 01/31/23 22:30 36.6 C 102 H 16 119/61 91 Nasal Cannula O2 Flow Rate 02/01/23 08:31 02/01/23 07:47 02/01/23 07:10 4 02/01/23 02:58 4 02/01/23 00:00 01/31/23 22:30 4 Laboratory Results 02/01/23 05:31 02/01/23 05:31 PG Care Time/CCT Total # of Minutes Spent Total Time Spent with Patient: Total time spent is greater than 50% in coordination of care (as documented) at patient's floor/unit and/or counseling patient: Coding Level of Care Code 50700 SUB INP/OBS CARE 2/35MIN Diagnoses Acute respiratory failure with hypoxia and hypercapnia J96.01; J96.02 COPD (chronic obstructive pulmonary disease) J44.9 Pneumonia J18.9 Laterality: bilateral Lung location: lower lobe of lung Pneumonia type: due to unspecified organism Atelectasis J98.11
[2023-02-01] MEDS: UMECLIDINIUM BROMIDE 62.5MCG/BLISTER 7 PUFFS/INHALER INH SCH (09:18)
[2023-02-01] MEDS: guaiFENesin 600 MG TABCR PO SCH ×2 (09:19→22:50)
[2023-02-01] MEDS: METOPROLOL TARTRATE 25 MG TAB PO SCH ×2 (09:19→22:50)
[2023-02-01] MEDS: PANTOprazole 40 MG TAB PO SCH ×2 (09:20→22:50)
[2023-02-01] MEDS: MONTELUKAST SODIUM 10 MG TABLET PO SCH (09:20)
[2023-02-01] MEDS: FUROSEMIDE 20 MG TAB PO SCH (09:20)
[2023-02-01] MEDS: DOXYCYCLINE HYCLATE 100 MG CAP PO SCH ×2 (09:20→22:50)
[2023-02-01] MEDS: AMIODARONE 200 MG TAB PO SCH ×2 (09:21→17:47)
[2023-02-01] MEDS: CEROVITE ADV FORMULA TAB PO SCH (09:22)
[2023-02-01] MEDS: MEGESTROL ACETATE SUSP 400 MG/10 ML UDC PO SCH (09:22)
[2023-02-01] MEDS: LIDOCAINE 5% 1 PATCH TD SCH (09:23)
[2023-02-01] MEDS: POTASSIUM CHLORIDE CRTAB 20 MEQ TABCR PO SCH ×2 (13:22→22:50)
--- NOTE | 2023-02-01 17:37 | Cardiology Progress Note ---
Date of Service February 01, 2023 Assessment & Plan (1) Atrial flutter with rapid ventricular response: (2) Acute respiratory failure with hypoxia: (3) COPD (chronic obstructive pulmonary disease): (4) (HFpEF) heart failure with preserved ejection fraction: (5) Elevated troponin: (6) History of aortic valve repair: (7) S/P mitral valve replacement with bioprosthetic valve: (8) CAD (coronary artery disease): Plan 1. Atrial fibrillation: Only 1 brief episode of atrial fibrillation yesterday afternoon. Asymptomatic. Will continue her amiodarone and anticoagulation. 2. Bioprosthetic mitral valve with mildly elevated transvalvular gradient. 3. Heart failure with preserved ejection fraction: No evidence of volume overload. Admission and Anticipated Discharge Date Admission Date: January 26, 2023 Subjective This afternoon the patient claimed he feeling better. She was able to ambulate to a chair and sit in a chair for a good portion of today. She had some nasal congestion and 1 she relieved herself her breathing a lot better. Review of Systems Review of Systems: Per HPI Physical Exam Physical Exam: She is alert and oriented x3. Mood affect appear normal. She answered all questions appropriately. Thin, cachectic HEENT: Sclerae are anicteric. Pupils are equal and reactive to light and accommodation. Extraocular movements were intact. Neuro: Cranial nerves intact Lungs: Distant lung sounds overall with prolonged expiratory phase. Bronchial breath sounds. No expiratory wheezing. No rales. Cardiac: The rhythm was regular. S1 and S2 were normal. Crescendo systolic murmur. The PMI was not markedly displaced on palpation. Extremities: Patient has bilateral radial pulses that are equal in intensity. There is no evidence cyanosis or clubbing. There was no evidence of significant peripheral edema bilaterally. Skin: There are no rashes noted on examination today. Results & Data Vital Signs (Past 12 Hours) Vital Signs Temp Pulse Pulse Resp BP BP Pulse Ox 02/01/23 15:54 105 H 02/01/23 15:41 36.8 C 102 H 19 123/66 94 02/01/23 14:44 99 H 18 90 02/01/23 11:42 36.6 C 96 H 16 123/70 88 L 02/01/23 11:14 101 H 20 86 L 02/01/23 10:40 93 02/01/23 10:39 81 L 02/01/23 10:30 95 02/01/23 10:27 02/01/23 08:31 36.8 C 105 H 18 146/75 H 95 02/01/23 07:47 109 H 02/01/23 07:10 99 H 16 94 O2 Del Method O2 Flow Rate 02/01/23 15:54 02/01/23 15:41 Nasal Cannula 4.0 02/01/23 14:44 Nasal Cannula 4 02/01/23 11:42 High Flow Nasal Cannula 02/01/23 11:14 Nasal Cannula 6 02/01/23 10:40 High Flow Nasal Cannula 6 02/01/23 10:39 High Flow Nasal Cannula 4 02/01/23 10:30 High Flow Nasal Cannula 6 02/01/23 10:27 High Flow Nasal Cannula 6 02/01/23 08:31 High Flow Nasal Cannula 02/01/23 07:47 02/01/23 07:10 Nasal Cannula 4 Laboratory Results Abnormal Lab Results 02/01/23 02/01/23 05:31 05:31 WBC 8.57 RBC 4.24 Hgb 11.9 L Hct 35.4 L MCV 83.5 MCH 28.1 MCHC 33.6 RDW Std Deviation 41.5 RDW Coeff of Claudette 13.6 Plt Count 148 MPV 10.2 Sodium 134 L Potassium 3.1 L Chloride 94 L Carbon Dioxide 33 H Anion Gap 7 BUN 14 Creatinine 0.51 L Est Cr Clr Drug Dosing 72.1 Est GFR ( Amer) 120.3 Est GFR (Non-Af Amer) 103.8 BUN/Creatinine Ratio 27.5 H Glucose 108 H Calcium 8.5 L PG Care Time/CCT Total # of Minutes Spent Total Time Spent with Patient: Total time spent is greater than 50% in coordination of care (as documented) at patient's floor/unit and/or counseling patient: Coding Level of Care Code 26858 SUB INP/OBS CARE 2/35MIN Diagnoses Atrial flutter with rapid ventricular response I48.92 Acute respiratory failure with hypoxia J96.01 COPD (chronic obstructive pulmonary disease) J44.9 (HFpEF) heart failure with preserved ejection fraction I50.30 Elevated troponin R77.8 History of aortic valve repair Z98.890; Z86.79 S/P mitral valve replacement with bioprosthetic valve Z95.3 CAD (coronary artery disease) I25.10
[2023-02-01] MEDS: cefTRIAXone SODIUM 2,000 MG in DEXTROSE 5% 50 ML IV SCH (17:47)
[2023-02-01] MEDS: ENOXAPARIN INJ 30 MG/0.3 ML SYR SQ SCH (22:48)
[2023-02-01] MEDS: CLOPIDOGREL BISULFATE 75 MG TAB PO SCH (22:48)
[2023-02-01] MEDS: ATORVASTATIN 40 MG TAB PO SCH (22:50)
--- NOTE | 2023-02-02 00:19 | Hospitalist Progress Note ---
Date of Service February 01, 2023 Assessment & Plan (1) Collapse of left lung: Plan: 01/28/23 - near complete collapse of the left lung. s/p urgent transfer to ICU followed by urgent bronchoscopy by Dr Cole. Mucous plugs were found in both mainstem bronchi s/p removal. Respiratory status was tenuous post-bronch. Required vapotherm post-bronch. This was weaned to wall-mounted high-flow on 01/29. On nasal cannula 4 liters on 01/31 Cont aggressive pulmonary toilet. Cont chest PT. Cont bronchodilators, etc. Appreciate pulmonary assistance. Patient appears comfortable on 02/01 (2) Severe sepsis: Plan: 2nd to b/l pneumonia blood cx's remain negative. had been on cefepime with doxy. now rocephin with doxy. MRSA swab neg. respiratory culture neg. (3) Acute respiratory failure with hypoxia and hypercapnia: Plan: 2nd to severe b/l pneumonia with collapse of the left lung as in #1 above - IMPROVING s/p bronch 01/28 with removal of b/l mucous plugs cont HFNC wall-mounted, o2 sat goals 88-92% cont duonebs qid, mucinex, nebulized mucomyst, saline nebs, and chest PT continue flutter valve continue IV/PO antibiotics (4) Atrial flutter with rapid ventricular response: Plan: rates to 180-190 following her bronch on 01/28/23 fortunately it broke and sinus heart rates trended towards 100 and less seen by [facility] [place] started on amiodarone 200mg BID to maintain sinus rhythm will likely have to lower the metoprolol dose or stop it thus far tolerating metoprolol 25mg BID CHADs-VASc is high - did broach anticoagulation with her today will need to address further over the next few days resume lasix 20mg daily Patient required 10 mg of IV metoprolol to help break HR. Was in 160s on 01/31 On 02/01, heart rate appears controlled. (5) COPD (chronic obstructive pulmonary disease): Plan: PFTs 2021 - moderate obstruction, severely reduced DLCO at baseline Cont duonebs & other modalities as above Cont home inhalers Minimal wheezing on exam but if any worsening consider systemic steroids (6) Mucus plugging of bronchi: Plan: see #1 above (7) Pneumonia: Plan: b/l likely bacterial superinfection in the setting of rhinovirus infection s/p cefepime x 3 days - now discontinued now on rocephin - day #2 of such cont doxycycline - day #4 deferring on MRSA coverage - MRSA [employer] swab negative plan 7-10 days of IV/PO abx given the severity of her pneumonia supportive care measures as above droplet precautions due to rhinovirus infection (8) Rhinovirus infection: Plan: droplet precautions supportive care (9) BRITTNEY (acute kidney injury): Plan: resolved sepsis-associated ATN / dehydration Creatinine on admission 1.6 Cr now normal repeat BMP am SHUBHAM inhibitor remains on hold (10) Elevated troponin: Plan: likely 2nd to myocardial demand ischemia in the setting of severe sepsis no evidence of ACS despite her EKG findings echo with preserved EF and normal LV wall motion peak troponin 382 with trend downward thereafter (11) NSVT (nonsustained ventricular tachycardia): Plan: 10-beat run 01/27/23 asymptomatic was lying in bed keep K close to 4 and mag close to 2 echo this admission with preserved EF and normal LV wall motion (12) Hypomagnesemia: Plan: repleted resolved (13) Severe protein-calorie malnutrition: Plan: recent colonoscopy with polyps but no colon cancer CT chest findings noted could consider CT abd/pelvis later in this stay to rule out other pathology but need to focus on pulmonary issues if CT is pursued and nothing is found on CT a/p - chronic cachexia due to severe COPD?? add MVI add boost Added megace on 01/31 (14) History of nicotine dependence: (15) CAD (coronary artery disease): Plan: 2005 cath - by report - nonobstructive CAD? stress echocardiogram 2013 - no ischemia troponin elevations noted this admission EKG findings noted (T wave inversions anteroseptal leads - transiently) echo with preserved EF and no regional WMA ideally she has ischemic evaluation in the future cont plavix cont metoprolol cont lipitor (16) Hypertension: Plan: BPs satisfactory at this time cont beta jelly cont to hold SHUBHAM (17) S/P mitral valve replacement with bioprosthetic valve: Plan: 2005 echo findings noted (18) History of aortic valve repair: Plan: 2005 findings from echo noted (19) Abnormal EKG: Plan: deep T wave inversions anteroseptal leads last cath 2005? I do not have that report last stress test 2013? these tests are noted in the record but I don't have those reports (20) Elevated INR: Plan: likely 2nd to vit K def s/p vit K x 2 with normalization of INR (21) Cervicalgia: Plan: cont lidoderm patches tylenol prn consider voltaren gel if steroids are used for COPD this will help her posterior neck pain as well she denies any recent fall to suggest trauma, fracture, etc Plan DVT proph - lovenox consult PT/OT since she is improving globally appreciate pulmonary & cardiology assistance Admission and Anticipated Discharge Date Admission Date: January 26, 2023 Subjective 62 yo female reports no new symptoms. Review of Systems Review of Systems: All systems reviewed & are unremarkable except as noted in HPI & below Physical Exam Physical Exam: gen - chronically ill-appearing; cachectic, awake/alert; neck - no JVD; tender paraspinal muscles posterior R neck along with trapezius muscle tenderness; muscle wasting noted about each shoulder mouth - MMM, no lesions or thrush heart - RRR, s1 s2, no murmur lungs - extensive crackles on left extending 1/2 way up back, mild rales R base, coughing; minimal end-exp wheezes; no increased work of breathing abd - soft NT ND BS+ ext - no ankle edema, pulses 2+ b/l psych - a/o x 3 Results & Data Results & Data Vital Signs (Past 12 Hours) Vital Signs Temp Pulse Pulse Resp BP BP Pulse Ox 02/01/23 23:27 36.7 C 115 H 20 154/74 H 89 L 02/01/23 19:34 36.7 C 103 H 20 149/70 H 98 02/01/23 19:13 114 H 18 95 02/01/23 15:54 105 H 02/01/23 15:41 36.8 C 102 H 19 123/66 94 02/01/23 14:44 99 H 18 90 O2 Del Method O2 Flow Rate 02/01/23 23:27 Nasal Cannula 4 02/01/23 19:34 Nasal Cannula 4 02/01/23 19:13 Nasal Cannula 4 02/01/23 15:54 02/01/23 15:41 Nasal Cannula 4.0 02/01/23 14:44 Nasal Cannula 4 PG Care Time/CCT Total # of Minutes Spent Total Time Spent with Patient: Total time spent is greater than 50% in coordination of care (as documented) at patient's floor/unit and/or counseling patient: Coding Level of Care Code 79838 SUB INP/OBS CARE 2/35MIN Diagnoses Collapse of left lung J98.11 Severe sepsis A41.9; R65.20 Acute respiratory failure with hypoxia and hypercapnia J96.01; J96.02 Atrial flutter with rapid ventricular response I48.92 COPD (chronic obstructive pulmonary disease) J44.9 Mucus plugging of bronchi T17.500A Pneumonia J18.9 Laterality: bilateral Lung location: lower lobe of lung Pneumonia type: due to unspecified organism Rhinovirus infection B34.8 BRITTNEY (acute kidney injury) N17.9 Elevated troponin R77.8 NSVT (nonsustained ventricular tachycardia) I47.29 Hypomagnesemia E83.42 Severe protein-calorie malnutrition E43 History of nicotine dependence Z87.891 CAD (coronary artery disease) I25.10 Hypertension I10 S/P mitral valve replacement with bioprosthetic valve Z95.3 History of aortic valve repair Z98.890; Z86.79 Abnormal EKG R94.31 Elevated INR R79.1 Cervicalgia M54.2 (7) Pneumonia Laterality: bilateral Lung location: lower lobe of lung Pneumonia type: due to unspecified organism Qualified Code(s): J18.9 - Pneumonia, unspecified organism
[2023-02-02] MEDS: oxyCODONE HCL IR 5 MG TAB (IMMEDIATE RELEASE) PO PRN ×5 (03:20→20:58)
[2023-02-02 06:29] LABS: Mean Corpuscular Hemoglobin 28.2 pg (25.0-34.0); Mean Corpuscular Hgb Conc 34.3 g/dL (32.0-36.0); Mean Corpuscular Volume 82.2 fL (80.0-100.0); Mean Platelet Volume 10.3 fL (9.4-12.4); Platelet Count 176 K/uL (130-400); RDW Coefficient of Variation 13.7 % (11.5-14.5); RDW Standard Deviation 40.8 fL (36.4-46.3); Red Blood Count 4.26 M/uL (4.20-5.40); White Blood Count 7.98 K/ul (4.8-10.8)
[2023-02-02 06:41] LABS: BUN Creatinine Ratio 36.2 (10-20); Calcium 8.7 mg/dl (8.6-10.3); Creatinine Clr Calc Pharmacy 73.6 ml/min; Est GFR (African American) 123.6 ml/min; Est GFR (Non-African American) 106.6 ml/min; Potassium 3.5 mmol/L (3.5-5.1)
[2023-02-02] MEDS: SODIUM CHLOR 7% 4 ML NEB NEB SCH ×2 (07:05→20:00)
[2023-02-02] MEDS: ALBUT/IPRATROP 3MG/0.5MG NEB 3 ML VIAL NEB SCH ×4 (07:05→20:00)
[2023-02-02] MEDS: FORMOTEROL 20 MCG/2 ML VIAL NEB SCH ×2 (07:05→20:00)
[2023-02-02] MEDS: ACETYLCYSTEINE 10% INHAL SOLN 4 ML **DISPENSED BY RESP. INH SCH ×2 (07:06→20:06)
[2023-02-02] MEDS: DOXYCYCLINE HYCLATE 100 MG CAP PO SCH ×2 (07:49→21:03)
[2023-02-02] MEDS: guaiFENesin 600 MG TABCR PO SCH ×2 (07:49→21:04)
[2023-02-02] MEDS: PANTOprazole 40 MG TAB PO SCH ×2 (07:49→21:04)
[2023-02-02] MEDS: CEROVITE ADV FORMULA TAB PO SCH (07:50)
[2023-02-02] MEDS: METOPROLOL TARTRATE 25 MG TAB PO SCH ×2 (07:50→21:04)
[2023-02-02] MEDS: MEGESTROL ACETATE SUSP 400 MG/10 ML UDC PO SCH (07:50)
[2023-02-02] MEDS: UMECLIDINIUM BROMIDE 62.5MCG/BLISTER 7 PUFFS/INHALER INH SCH (07:50)
[2023-02-02] MEDS: POTASSIUM CHLORIDE CRTAB 20 MEQ TABCR PO SCH (07:50)
[2023-02-02] MEDS: MONTELUKAST SODIUM 10 MG TABLET PO SCH (07:50)
[2023-02-02] MEDS: AMIODARONE 200 MG TAB PO SCH ×2 (07:50→17:20)
[2023-02-02] MEDS: FUROSEMIDE 20 MG TAB PO SCH (07:50)
[2023-02-02] MEDS: LIDOCAINE 5% 1 PATCH TD SCH (07:51)
--- NOTE | 2023-02-02 07:59 | Pulmonology Progress Note ---
Date of Service February 02, 2023 Assessment & Plan (1) Acute respiratory failure with hypoxia and hypercapnia: (2) COPD (chronic obstructive pulmonary disease): (3) Pneumonia: Laterality: bilateral Lung location: lower lobe of lung Pneumonia type: due to unspecified organism Qualified Code(s): J18.9 - Pneumonia, unspecified organism (4) Atelectasis: Plan Impression: 62-year-old female with moderate obstructive lung disease with left lower lobe pneumonia and severe mucous plugging of the left lower lobe bronchi. She clinically worsened with atelectasis of greater than 80% of her lung yesterday and was transferred emergently to the ICU. She underwent bronchoscopy with therapeutic aspiration of secretions. She initially did well but post procedurally developed tachycardia which may have been multifocal atrial tachycardia. This did respond to beta-blockers. She is hemodynamically stable and doing well from a respiratory standpoint this morning. CT chest 01/26/2023 personally reviewed: Centrilobular emphysema appreciated bilaterally Dense consolidative process appreciated in the left lower lobe as well as right lower lobe with mucous plugging on the left lower lobe Cardiomegaly Minimal mediastinal lymphadenopathy -- Mucous plugging S/p bronchoscopy 01/28/2023 Continue with pulmonary toileting with hypertonic saline, flutter valve as well as Mucinex Sputum culture negative to date --Acute on chronic hypercapnic hypoxic respiratory failure At baseline 2-3 L oxygen at home Multifactorial Multilobar pneumonia with mucous plugging Procalcitonin 78.64 Respiratory bio fire negative for everything except for entero-/rhinovirus Nasal MRSA negative --COPD with emphysema On Advair at home Plan:- Chest x-ray from today does show improvement compared to before. The left lower lung also seems to be having improved aeration. Continue with hypertonic saline nebulized, Mucinex, chest vest therapy as well as flutter valve Continue with inhaled bronchodilators along with nebulizers Complete the course of antibiotics for 7 days Case was discussed with RN at bedside No further recommendation from pulmonary perspective, will sign off Please call directly with any question Please note the above document was generated using voice recognition software. It may contain grammatical, syntax or spelling errors.Any formal questions or concerns about the content, text or information contained within the body of this dictation should be directly addressed to the provider for clarification. Admission and Anticipated Discharge Date Admission Date: January 26, 2023 Subjective Patient seen and examined at bedside. No acute distress, no adverse events overnight She was a bit agitated early on during the interrogation but she calmed down She has been drinking boost 3 times a day now. Has been bringing up phlegm which is less thick and easier to bring up. Was saturating 92-93% on 3 L nasal cannula No nausea vomiting. Denies any hemoptysis Review of Systems Review of Systems: All systems reviewed & are unremarkable except as noted in Subjective Physical Exam Physical Exam: Constitutional: No acute distress HEENT: EOMI, PERRLA, frail-appearing Respiratory system: Decreased air entry bilaterally, more decreased on the left side, no wheeze, no rhonchi, positive crackles bilaterally CVS: S1-S2 positive, no murmurs or gallops Abdomen: Soft, nontender, nondistended, positive bowel sounds x4 Extremities: +2 pulses bilaterally radialis/ dorsalis pedis, no cyanosis, no edema Neuro: Awake alert oriented x3 Psych: Normal mood and affect G/U: No Jimenez Skin: no rashes, warm and dry Lymphatic: no cervical or axillary lymphadenopathy Results & Data Results & Data Vital Signs (Past 12 Hours) Vital Signs Temp Pulse Pulse Resp BP Pulse Ox O2 Del Method 02/02/23 07:22 81 02/02/23 07:07 101 H 18 86 L Nasal Cannula 02/02/23 03:10 36.7 C 75 17 124/56 L 97 Nasal Cannula 02/02/23 00:00 107 H 02/01/23 21:15 Nasal Cannula 02/02/23 00:00 93 Nasal Cannula 02/01/23 23:27 36.7 C 115 H 20 154/74 H 89 L Nasal Cannula O2 Flow Rate 02/02/23 07:22 02/02/23 07:07 4 02/02/23 03:10 4 02/02/23 00:00 02/01/23 21:15 4 02/02/23 00:00 4 02/01/23 23:27 4 Laboratory Results 02/02/23 05:44 02/02/23 05:44 PG Care Time/CCT Total # of Minutes Spent Total Time Spent with Patient: Total time spent is greater than 50% in coordination of care (as documented) at patient's floor/unit and/or counseling patient: Coding Level of Care Code 11696 SUB INP/OBS CARE 2/35MIN Diagnoses Acute respiratory failure with hypoxia and hypercapnia J96.01; J96.02 COPD (chronic obstructive pulmonary disease) J44.9 Pneumonia J18.9 Laterality: bilateral Lung location: lower lobe of lung Pneumonia type: due to unspecified organism Atelectasis J98.11
--- NOTE | 2023-02-02 16:29 | XRay Report ---
XR chest 1V portable CLINICAL HISTORY: f/u TECHNIQUE: Single frontal radiograph of the chest was obtained. Comparison: Comparison is made to chest radiograph 01/31/2023 FINDINGS: Median sternotomy wires are unchanged. Calcified aortic knob is seen. Persistent interstitial thicken ing is seen. Interval improvement in previously noted left lower lung airspace opacity. Small left pl eural effusion is slightly decreased from prior exam. IMPRESSION: 1. Interval slightly improved left greater than right airspace opacities compatible with improving p neumonia. 2. Interstitial thickening is again noted, possibly secondary to pulmonary edema. 3. Small left pleural effusion. ACT 112: Negative or not required by law. Electronically signed by: Kvng Sarmiento M.D. 02/02/2023 4:28 PM
[2023-02-02] MEDS: cefTRIAXone SODIUM 2,000 MG in DEXTROSE 5% 50 ML IV SCH (17:20)
[2023-02-02] MEDS: ENOXAPARIN INJ 30 MG/0.3 ML SYR SQ SCH (21:03)
[2023-02-02] MEDS: CLOPIDOGREL BISULFATE 75 MG TAB PO SCH (21:04)
[2023-02-02] MEDS: ATORVASTATIN 40 MG TAB PO SCH (21:04)
--- NOTE | 2023-02-02 22:42 | Hospitalist Progress Note ---
Date of Service February 02, 2023 Assessment & Plan (1) Collapse of left lung: Plan: 01/28/23 - near complete collapse of the left lung. s/p urgent transfer to ICU followed by urgent bronchoscopy by Dr Cole. Mucous plugs were found in both mainstem bronchi s/p removal. Respiratory status was tenuous post-bronch. Required vapotherm post-bronch. This was weaned to wall-mounted high-flow on 01/29. On nasal cannula 4 liters on 01/31 Cont aggressive pulmonary toilet. Cont chest PT. Cont bronchodilators, etc. Appreciate pulmonary assistance. Patient continues to improve symptomatically on 02/02, possible discharge on 02/03 (2) Severe sepsis: Plan: 2nd to b/l pneumonia blood cx's remain negative. had been on cefepime with doxy. now rocephin with doxy. MRSA swab neg. respiratory culture neg. (3) Acute respiratory failure with hypoxia and hypercapnia: Plan: 2nd to severe b/l pneumonia with collapse of the left lung as in #1 above - IMPROVING s/p bronch 01/28 with removal of b/l mucous plugs cont HFNC wall-mounted, o2 sat goals 88-92% cont duonebs qid, mucinex, nebulized mucomyst, saline nebs, and chest PT continue flutter valve continue IV/PO antibiotics (4) Atrial flutter with rapid ventricular response: Plan: rates to 180-190 following her bronch on 01/28/23 fortunately it broke and sinus heart rates trended towards 100 and less seen by [facility] [place]iology started on amiodarone 200mg BID to maintain sinus rhythm will likely have to lower the metoprolol dose or stop it thus far tolerating metoprolol 25mg BID CHADs-VASc is high - did broach anticoagulation with her today will need to address further over the next few days resume lasix 20mg daily Patient required 10 mg of IV metoprolol to help break HR. Was in 160s on 01/31 On 02/02, heart rate appears controlled. (5) COPD (chronic obstructive pulmonary disease): Plan: PFTs 2021 - moderate obstruction, severely reduced DLCO at baseline Cont duonebs & other modalities as above Cont home inhalers Minimal wheezing on exam but if any worsening consider systemic steroids (6) Mucus plugging of bronchi: Plan: see #1 above (7) Pneumonia: Plan: b/l likely bacterial superinfection in the setting of rhinovirus infection s/p cefepime x 3 days - now discontinued now on rocephin - day #2 of such cont doxycycline - day #4 deferring on MRSA coverage - MRSA [employer] swab negative plan 7-10 days of IV/PO abx given the severity of her pneumonia supportive care measures as above droplet precautions due to rhinovirus infection (8) Rhinovirus infection: Plan: droplet precautions supportive care (9) BRITTNEY (acute kidney injury): Plan: resolved sepsis-associated ATN / dehydration Creatinine on admission 1.6 Cr now normal repeat BMP am SHUBHAM inhibitor remains on hold (10) Elevated troponin: Plan: likely 2nd to myocardial demand ischemia in the setting of severe sepsis no evidence of ACS despite her EKG findings echo with preserved EF and normal LV wall motion peak troponin 382 with trend downward thereafter (11) NSVT (nonsustained ventricular tachycardia): Plan: 10-beat run 01/27/23 asymptomatic was lying in bed keep K close to 4 and mag close to 2 echo this admission with preserved EF and normal LV wall motion (12) Hypomagnesemia: Plan: repleted resolved (13) Severe protein-calorie malnutrition: Plan: recent colonoscopy with polyps but no colon cancer CT chest findings noted could consider CT abd/pelvis later in this stay to rule out other pathology but need to focus on pulmonary issues if CT is pursued and nothing is found on CT a/p - chronic cachexia due to severe COPD?? add MVI add boost Added megace on 01/31 (14) History of nicotine dependence: (15) CAD (coronary artery disease): Plan: 2005 cath - by report - nonobstructive CAD? stress echocardiogram 2013 - no ischemia troponin elevations noted this admission EKG findings noted (T wave inversions anteroseptal leads - transiently) echo with preserved EF and no regional WMA ideally she has ischemic evaluation in the future cont plavix cont metoprolol cont lipitor (16) Hypertension: Plan: BPs satisfactory at this time cont beta jelly cont to hold SHUBHAM (17) S/P mitral valve replacement with bioprosthetic valve: Plan: 2005 echo findings noted (18) History of aortic valve repair: Plan: 2005 findings from echo noted (19) Abnormal EKG: Plan: deep T wave inversions anteroseptal leads last cath 2005? I do not have that report last stress test 2013? these tests are noted in the record but I don't have those reports (20) Elevated INR: Plan: likely 2nd to vit K def s/p vit K x 2 with normalization of INR (21) Cervicalgia: Plan: cont lidoderm patches tylenol prn consider voltaren gel if steroids are used for COPD this will help her posterior neck pain as well she denies any recent fall to suggest trauma, fracture, etc Plan DVT proph - lovenox consult PT/OT since she is improving globally appreciate pulmonary & cardiology assistance Admission and Anticipated Discharge Date Admission Date: January 26, 2023 Subjective Patient reports to be breathing better today. Review of Systems Review of Systems: All systems reviewed & are unremarkable except as noted in HPI & below Physical Exam Physical Exam: gen - chronically ill-appearing; cachectic, awake/alert; neck - no JVD; tender paraspinal muscles posterior R neck along with trapezius muscle tenderness; muscle wasting noted about each shoulder mouth - MMM, no lesions or thrush heart - RRR, s1 s2, no murmur lungs - extensive crackles on left extending 1/[address] way up back, mild rales R base, coughing; minimal end-exp wheezes; no increased work of breathing abd - soft NT ND BS+ ext - no ankle edema, pulses 2+ b/l psych - a/o x 3 Results & Data Results & Data Vital Signs (Past 12 Hours) Vital Signs Temp Pulse Pulse Pulse Resp BP Pulse Ox 02/02/23 20:05 02/02/23 20:16 100 H 98 02/02/23 20:01 93 H 18 97 02/02/23 19:25 37.0 C 105 H 16 123/72 97 02/02/23 16:00 36.6 C 82 18 112/79 97 02/02/23 16:48 95 H 02/02/23 14:54 84 18 96 02/02/23 11:17 37.1 C 88 22 148/75 H 91 02/02/23 10:46 02/02/23 10:42 99 H 16 91 O2 Del Method O2 Flow Rate 02/02/23 20:05 Nasal Cannula 4 02/02/23 20:16 Nasal Cannula 3 02/02/23 20:01 Nasal Cannula 4 02/02/23 19:25 Nasal Cannula 4 02/02/23 16:00 Room Air 02/02/23 16:48 02/02/23 14:54 Nasal Cannula 3 02/02/23 11:17 Nasal Cannula 02/02/23 10:46 Nasal Cannula 3 02/02/23 10:42 Nasal Cannula 3 PG Care Time/CCT Total # of Minutes Spent Total Time Spent with Patient: Total time spent is greater than 50% in coordination of care (as documented) at patient's floor/unit and/or counseling patient: Coding Level of Care Code 58643 SUB INP/OBS CARE 2/35MIN Diagnoses Collapse of left lung J98.11 Severe sepsis A41.9; R65.20 Acute respiratory failure with hypoxia and hypercapnia J96.01; J96.02 Atrial flutter with rapid ventricular response I48.92 COPD (chronic obstructive pulmonary disease) J44.9 Mucus plugging of bronchi T17.500A Pneumonia J18.9 Laterality: bilateral Lung location: lower lobe of lung Pneumonia type: due to unspecified organism Rhinovirus infection B34.8 BRITTNEY (acute kidney injury) N17.9 Elevated troponin R77.8 NSVT (nonsustained ventricular tachycardia) I47.29 Hypomagnesemia E83.42 Severe protein-calorie malnutrition E43 History of nicotine dependence Z87.891 CAD (coronary artery disease) I25.10 Hypertension I10 S/P mitral valve replacement with bioprosthetic valve Z95.3 History of aortic valve repair Z98.890; Z86.79 Abnormal EKG R94.31 Elevated INR R79.1 Cervicalgia M54.2 (7) Pneumonia Laterality: bilateral Lung location: lower lobe of lung Pneumonia type: due to unspecified organism Qualified Code(s): J18.9 - Pneumonia, unspecified organism
[2023-02-03] MEDS: oxyCODONE HCL IR 5 MG TAB (IMMEDIATE RELEASE) PO PRN ×5 (00:54→18:16)
[2023-02-03 06:07] LABS: Hematocrit (blood only) 35.3 % (37.0-47.0); Hemoglobin 11.9 g/dl (12.0-16.0); Mean Corpuscular Hemoglobin 28.1 pg (25.0-34.0); Mean Corpuscular Hgb Conc 33.7 g/dL (32.0-36.0); Mean Corpuscular Volume 83.5 fL (80.0-100.0); Mean Platelet Volume 10.2 fL (9.4-12.4); Platelet Count 195 K/uL (130-400); RDW Coefficient of Variation 13.8 % (11.5-14.5); RDW Standard Deviation 42.1 fL (36.4-46.3); Red Blood Count 4.23 M/uL (4.20-5.40); White Blood Count 8.05 K/ul (4.8-10.8)
[2023-02-03 06:15] LABS: BUN Creatinine Ratio 34.5 (10-20); Creatinine Clr Calc Pharmacy 60.6 ml/min; Est GFR (African American) 115.3 ml/min; Est GFR (Non-African American) 99.5 ml/min; Potassium 3.6 mmol/L (3.5-5.1)
[2023-02-03] MEDS: FORMOTEROL 20 MCG/2 ML VIAL NEB SCH (07:30)
[2023-02-03] MEDS: SODIUM CHLOR 7% 4 ML NEB NEB SCH (07:31)
[2023-02-03] MEDS: ALBUT/IPRATROP 3MG/0.5MG NEB 3 ML VIAL NEB SCH ×3 (07:32→14:57)
[2023-02-03] MEDS: ACETYLCYSTEINE 10% INHAL SOLN 4 ML **DISPENSED BY RESP. INH SCH (07:32)
--- NOTE | 2023-02-03 07:41 | Pulmonology Progress Note ---
Date of Service February 03, 2023 Assessment & Plan (1) Acute respiratory failure with hypoxia and hypercapnia: (2) COPD (chronic obstructive pulmonary disease): (3) Pneumonia: Laterality: bilateral Lung location: lower lobe of lung Pneumonia type: due to unspecified organism Qualified Code(s): J18.9 - Pneumonia, unspecified organism (4) Atelectasis: Plan Impression: 62-year-old female with moderate obstructive lung disease with left lower lobe pneumonia and severe mucous plugging of the left lower lobe bronchi. She clinically worsened with atelectasis of greater than 80% of her lung yesterday and was transferred emergently to the ICU. She underwent bronchoscopy with therapeutic aspiration of secretions. She initially did well but post procedurally developed tachycardia which may have been multifocal atrial tachycardia. This did respond to beta-blockers. She is hemodynamically stable and doing well from a respiratory standpoint this morning. CT chest 01/26/2023 personally reviewed: Centrilobular emphysema appreciated bilaterally Dense consolidative process appreciated in the left lower lobe as well as right lower lobe with mucous plugging on the left lower lobe Cardiomegaly Minimal mediastinal lymphadenopathy -- Mucous plugging S/p bronchoscopy 01/28/2023 Continue with pulmonary toileting with hypertonic saline, flutter valve as well as Mucinex Sputum culture negative to date --Acute on chronic hypercapnic hypoxic respiratory failure At baseline 2-3 L oxygen at home Multifactorial Multilobar pneumonia with mucous plugging Procalcitonin 78.64 Respiratory bio fire negative for everything except for entero-/rhinovirus Nasal MRSA negative --COPD with emphysema On Advair at home Plan:- Continue with hypertonic saline nebulized, Mucinex, flutter valve even on discharge. Chest vest therapy while in the hospital Continue with inhaled bronchodilators along with nebulizers Complete the course of antibiotics for 7 days Case was discussed with RN at bedside No further recommendation from pulmonary perspective, will sign off Please call directly with any question Please note the above document was generated using voice recognition software. It may contain grammatical, syntax or spelling errors.Any formal questions or concerns about the content, text or information contained within the body of this dictation should be directly addressed to the provider for clarification. Admission and Anticipated Discharge Date Admission Date: January 26, 2023 Subjective Patient seen and examined at bedside. No acute distress, no adverse events overnight Overall she says she is feeling better when it comes to her breathing Able to bring up phlegm without any significant issues No headache, no dizziness Has been drinking boost 3 times a day. Appetite is still not optimal Review of Systems Review of Systems: All systems reviewed & are unremarkable except as noted in Subjective Physical Exam Physical Exam: Constitutional: No acute distress HEENT: EOMI, PERRLA, frail-appearing Respiratory system: Decreased air entry bilaterally, more decreased on the left side, no wheeze, no rhonchi, positive crackles bilaterally CVS: S1-S2 positive, no murmurs or gallops Abdomen: Soft, nontender, nondistended, positive bowel sounds x4 Extremities: +2 pulses bilaterally radialis/ dorsalis pedis, no cyanosis, no edema Neuro: Awake alert oriented x3 Psych: Normal mood and affect G/U: No Jimenez Skin: no rashes, warm and dry Lymphatic: no cervical or axillary lymphadenopathy Results & Data Results & Data Vital Signs (Past 12 Hours) Vital Signs Temp Pulse Pulse Pulse Resp BP Pulse Ox 02/03/23 07:33 90 17 93 02/03/23 07:08 37.1 C 77 17 152/65 H 94 02/03/23 03:35 36.6 C 75 18 135/69 98 02/02/23 23:57 109 H 02/02/23 22:48 36.7 C 88 16 137/71 90 02/02/23 20:05 02/02/23 20:16 100 H 98 02/02/23 20:01 93 H 18 97 O2 Del Method O2 Flow Rate 02/03/23 07:33 Nasal Cannula 3.5 02/03/23 07:08 Nasal Cannula 4 02/03/23 03:35 Room Air 02/02/23 23:57 02/02/23 22:48 Nasal Cannula 4 02/02/23 20:05 Nasal Cannula 4 02/02/23 20:16 Nasal Cannula 3 02/02/23 20:01 Nasal Cannula 4 Laboratory Results 02/03/23 05:36 02/03/23 05:36 PG Care Time/CCT Total # of Minutes Spent Total Time Spent with Patient: Total time spent is greater than 50% in coordination of care (as documented) at patient's floor/unit and/or counseling patient: Coding Level of Care Code 03608 SUB INP/OBS CARE 2/35MIN Diagnoses Acute respiratory failure with hypoxia and hypercapnia J96.01; J96.02 COPD (chronic obstructive pulmonary disease) J44.9 Pneumonia J18.9 Laterality: bilateral Lung location: lower lobe of lung Pneumonia type: due to unspecified organism Atelectasis J98.11
[2023-02-03] MEDS: UMECLIDINIUM BROMIDE 62.5MCG/BLISTER 7 PUFFS/INHALER INH SCH (08:34)
[2023-02-03] MEDS: guaiFENesin 600 MG TABCR PO SCH (08:34)
[2023-02-03] MEDS: PANTOprazole 40 MG TAB PO SCH (08:35)
[2023-02-03] MEDS: CEROVITE ADV FORMULA TAB PO SCH (08:35)
[2023-02-03] MEDS: FUROSEMIDE 20 MG TAB PO SCH (08:35)
[2023-02-03] MEDS: METOPROLOL TARTRATE 25 MG TAB PO SCH (08:35)
[2023-02-03] MEDS: MONTELUKAST SODIUM 10 MG TABLET PO SCH (08:35)
[2023-02-03] MEDS: MEGESTROL ACETATE SUSP 400 MG/10 ML UDC PO SCH (08:35)
[2023-02-03] MEDS: LIDOCAINE 5% 1 PATCH TD SCH (08:36)
[2023-02-03] MEDS: AMIODARONE 200 MG TAB PO SCH ×2 (08:36→17:23)
[2023-02-03 13:26] LABS: HCO3 VBG 44 mmol/L; Oxygen Saturation VBG 75.8 %; PCO2 VBG 52 mmHg (38-50); PO2 VBG 45 mmHg; pH VBG 7.53 (7.36-7.41)
[2023-02-03 13:40] LABS: Phosphorus 4.1 mg/dl (2.5-4.9)
--- NOTE | 2023-02-03 13:57 | Cardiology Progress Note ---
Date of Service February 03, 2023 Assessment & Plan (1) Atrial flutter with rapid ventricular response: (2) Acute respiratory failure with hypoxia: (3) COPD (chronic obstructive pulmonary disease): (4) (HFpEF) heart failure with preserved ejection fraction: (5) Elevated troponin: (6) History of aortic valve repair: (7) S/P mitral valve replacement with bioprosthetic valve: (8) CAD (coronary artery disease): Plan 1. Atrial fibrillation: No additional episodes of atrial fibrillation. I would continue amiodarone 400 mg twice daily for another 5 days. This can be reduced to 200 mg daily. Previously recommended institution of systemic anticoagulation with warfarin (valvular atrial fibrillation) 2. Bioprosthetic mitral valve with mildly elevated transvalvular gradient. 3. Heart failure with preserved ejection fraction: No evidence of volume overload. Cardiology will sign off. She can follow-up in the clinic once discharge. Please contact the on-call [facility] [employer] ammunition officer for any additional questions or concerns. Admission and Anticipated Discharge Date Admission Date: January 26, 2023 Subjective This afternoon she claimed he feeling well overall. She reported being more ambulatory and out of bed more yesterday. Still weak. Still dyspneic at times. Overall congestion improved. Review of Systems Review of Systems: Per HPI Physical Exam Physical Exam: She is alert and oriented x3. Mood affect appear normal. She answered all questions appropriately. Thin, cachectic HEENT: Sclerae are anicteric. Pupils are equal and reactive to light and accommodation. Extraocular movements were intact. Neuro: Cranial nerves intact Lungs: Normal respiratory effort Cardiac: The rhythm was regular. Extremities: Patient has bilateral radial pulses that are equal in intensity. There is no evidence cyanosis or clubbing. There was no evidence of significant peripheral edema bilaterally. Skin: There are no rashes noted on examination today. Results & Data Vital Signs (Past 12 Hours) Vital Signs Temp Pulse Pulse Pulse Pulse Pulse Pulse 02/03/23 13:19 100 H 89 89 02/03/23 07:00 79 02/03/23 11:18 02/03/23 10:55 36.5 C 77 02/03/23 07:30 02/03/23 07:33 90 02/03/23 07:08 37.1 C 77 02/03/23 03:35 36.6 C 75 Resp Resp Resp Resp BP Pulse Ox Pulse Ox 02/03/23 13:19 20 17 17 93 02/03/23 07:00 02/03/23 11:18 93 02/03/23 10:55 17 126/67 95 02/03/23 07:30 02/03/23 07:33 17 93 02/03/23 07:08 17 152/65 H 94 02/03/23 03:35 18 135/69 98 Pulse Ox Pulse Ox O2 Del Method O2 Flow Rate O2 Flow Rate O2 Flow Rate 02/03/23 13:19 90 84 L 2 2 02/03/23 07:00 02/03/23 11:18 3 02/03/23 10:55 Nasal Cannula 2 02/03/23 07:30 Nasal Cannula 02/03/23 07:33 Nasal Cannula 3.5 02/03/23 07:08 Nasal Cannula 4 02/03/23 03:35 Room Air Laboratory Results Abnormal Lab Results 02/03/23 02/03/23 02/03/23 05:36 05:36 12:40 WBC 8.05 RBC 4.23 Hgb 11.9 L Hct 35.3 L MCV 83.5 MCH 28.1 MCHC 33.7 RDW Std Deviation 42.1 RDW Coeff of Claudette 13.8 Plt Count 195 MPV 10.2 VBG pH Cancelled VBG pCO2 Cancelled VBG pO2 Cancelled VBG HCO3 Cancelled VBG O2 Saturation Cancelled VBG Base Excess Cancelled Barometric Pressure Cancelled Sodium 135 L Potassium 3.6 Chloride 94 L Carbon Dioxide 38 H Anion Gap 3 BUN 20 Creatinine 0.58 L Est Cr Clr Drug Dosing 60.6 Est GFR ( Amer) 115.3 Est GFR (Non-Af Amer) 99.5 BUN/Creatinine Ratio 34.5 H Glucose 90 Calcium 9.0 Phosphorus Magnesium 02/03/23 02/03/23 12:40 13:17 WBC RBC Hgb Hct MCV MCH MCHC RDW Std Deviation RDW Coeff of Claudette Plt Count MPV VBG pH 7.53 H VBG pCO2 52 H VBG pO2 45 VBG HCO3 44 VBG O2 Saturation 75.8 VBG Base Excess 18.0 Barometric Pressure Sodium Potassium Chloride Carbon Dioxide Anion Gap BUN Creatinine Est Cr Clr Drug Dosing Est GFR ( Amer) Est GFR (Non-Af Amer) BUN/Creatinine Ratio Glucose Calcium Phosphorus 4.1 Magnesium 1.0 L PG Care Time/CCT Total # of Minutes Spent Total Time Spent with Patient: Total time spent is greater than 50% in coordination of care (as documented) at patient's floor/unit and/or counseling patient: Coding Level of Care Code 74144 SUB INP/OBS CARE 2/35MIN Diagnoses Atrial flutter with rapid ventricular response I48.92 Acute respiratory failure with hypoxia J96.01 COPD (chronic obstructive pulmonary disease) J44.9 (HFpEF) heart failure with preserved ejection fraction I50.30 Elevated troponin R77.8 History of aortic valve repair Z98.890; Z86.79 S/P mitral valve replacement with bioprosthetic valve Z95.3 CAD (coronary artery disease) I25.10
[2023-02-03] MEDS: MAGNESIUM SULFATE / D5W 1 GM/100 ML BAG IV SCH ×2 (14:05→16:06)
[2023-02-03] MEDS: cefTRIAXone SODIUM 2,000 MG in DEXTROSE 5% 50 ML IV SCH (17:46)
--- NOTE | 2023-02-03 20:55 | Ultrasound Report ---
US arterial duplex LE RT CLINICAL HISTORY: right foot weaker TECHNIQUE: Real-time grayscale and color and spectral Doppler ultrasound imaging of the right lower e xtremity arteries was performed. Measurements calculated based on NASCET criteria. COMPARISON: None available at the time of this dictation. FINDINGS: No significant increased velocities are seen. There is biphasic flow throughout with the exception of monophasic flow in the dorsalis pedis artery. ANKLE/BRACHIAL INDEX (MAIRON): Brachial: Right: 130 mmHg. Left: 132 mmHg. Ankle (dorsalis pedis): Right: 106 mmHg. Left: 129 mmHg. Ankle (posterior tibial): Right: 131 mmHg. Left: 122 mmHg. Ankle/brachial index: Right: 0.99, Left: 0.98. Reference ranges: Normal Ankle/Brachial Index (MARION) 1.0-1.4; 0.91-0.99 borderline; < or = 0.9 abnormal (0.7-0.89 mild, 0.51-0.69 moderate, < or = 0.5 severe peripheral arterial disease). Normal Toe/Brachial Index (TBI) > or = 0.6; < 0.6 abnormal (0.34-0.59 mild, 0.12-0.34 moderate, < or = 0.11 severe peripheral arterial disease). IMPRESSION: 1. No hemodynamically significant stenosis. 2. Normal ankle-brachial indices. ACT 112: Negative or not required by law. Electronically signed by: Kvng Sarmiento M.D. 02/03/2023 8:54 PM
--- NOTE | 2023-02-08 23:45 | Discharge Summary ---
Date of Service February 03, 2023 Admission HPI Per Admitting Provider Jennifer is a 62-year-old female with a past medical history of CAD, mitral valve bioprosthetic replacement, diastolic CHF, protein calorie malnutrition with BMI less than 16, TIA, paroxysmal SVT, past NSTEMI, and emphysema who was seen 2 weeks ago for near syncope, dizziness initially thought to be volume contracted but subsequently found to have CHF and improved with Lasix and was discharged after 2 days. She Lucius presents with poor p.o. intake, generalized weakness, and BRITTNEY. On admission with sinus tachycardia to 137, nonspecific ST depressions noted She is seen with her at bedside. She reports that she has a generally poor appetite, but this has been much worse and she has eaten almost nothing in the last 2 days. She received her flu shot on Monday, has had gradually diminished appetite since that time. She reports in the last 48 hours she has had increased fatigue, nonproductive cough, and shortness of breath. Was hypoxic to 50% at home. She normally uses 2 L of oxygen at night, does not need daytime oxygen improved after 4 L of oxygen but very fatigued. Denies abdominal pain in any point. Denies nausea/vomiting/diarrhea. Poor appetite Denies chest pain, chest pressure. She reports her right neck is stiff and painful due to lying laying curled up on her left side. Has a history of chronic cervical radiculopathy and this feels similar denies left-sided neck or jaw tenderness, left shoulder tenderness, chest pain She has never been on PPV for before Chronic medical problems: Diastolic heart failure. On Lasix 20 mg, metoprolol 12.5 mg, lisinopril 2.5 mg, spironolactone 25 mg, atorvastatin Past TIA: On Plavix COPD, moderate obstruction, severely reduced DLCO. Albuterol/ipratropium/Advair FUR TANNER. Has had increased wheezing Former tobacco use, reports that she has not used any tobacco products in the last year. Former around 1 pack/day for "a long time " Principal Diagnosis collapse of left lung Discharge Exam gen - chronically ill-appearing; cachectic, awake/alert; neck - no JVD; tender paraspinal muscles posterior R neck along with trapezius muscle tenderness; muscle wasting noted about each shoulder mouth - MMM, no lesions or thrush heart - RRR, s1 s2, no murmur lungs - extensive crackles on left extending 1/[address] up back, mild rales R base, coughing; minimal end-exp wheezes; no increased work of breathing abd - soft NT ND BS+ ext - no ankle edema, pulses 2+ b/l psych - a/o x 3 Discharge Data Allergies Allergy/AdvReac Type Severity Reaction Status Date / Time aspirin Allergy Intermediate Hives Verified 02/07/23 13:32 hydrochlorothiazide Allergy Intermediate RASH/"Sick Verified 02/07/23 13:32 in stomach" trazodone AdvReac Severe Vomiting Verified 02/07/23 13:32 tramadol AdvReac Mild Nausea Verified 02/07/23 13:32 Consultations 01/26/23 15:17 ED Decision to Admit Stat 01/27/23 12:16 Consult Pulmonology Routine 01/28/23 17:28 Consult Refrigeration Insulator Routine 01/29/23 12:06 Consult Cardiology Routine Ordered Studies 01/26/23 16:14 CT chest diagnostic wo con Stat 02/03/23 10:30 US leg [US arterial duplex LE RT] Routine Hospital Course (1) Collapse of left lun01/28/23 - near complete collapse of the left lung. s/p urgent transfer to ICU followed by urgent bronchoscopy by Dr Cole. Mucous plugs were found in both mainstem bronchi s/p removal. Respiratory status was tenuous post-bronch. Required vapotherm post-bronch. This was weaned to wall-mounted high-flow on 01/29. On nasal cannula 4 liters on 01/31 Cont aggressive pulmonary toilet. Cont chest PT. Cont bronchodilators, etc. Appreciate pulmonary assistance. Patient felt better on 02/03, and was agreeable to discharge. (2) Severe sepsis: 2nd to b/l pneumonia blood cx's remain negative. had been on cefepime with doxy. now rocephin with doxy. MRSA swab neg. respiratory culture neg. (3) Acute respiratory failure with hypoxia and hypercapnia: 2nd to severe b/l pneumonia with collapse of the left lung as in #1 above - IMPROVING s/p bronch 01/28 with removal of b/l mucous plugs cont HFNC wall-mounted, o2 sat goals 88-92% cont duonebs qid, mucinex, nebulized mucomyst, saline nebs, and chest PT continue flutter valve (4) Atrial flutter with rapid ventricular response: rates to 180-190 following her bronch on 01/28/23 fortunately it broke and sinus heart rates trended towards 100 and less [facility] Card[facility] started on amiodarone 200mg BID to maintain sinus rhythm will likely have to lower the metoprolol dose or stop it thus far tolerating metoprolol 25mg BID CHADs-VASc is high - did broach anticoagulation with her today will need to address further over the next few days resume lasix 20mg daily Patient required 10 mg of IV metoprolol to help break HR. Was in 160s on 01/31 On 02/02, heart rate appears controlled. (5) COPD (chronic obstructive pulmonary disease): PFTs 2021 - moderate obstruction, severely reduced DLCO at baseline Cont duonebs & other modalities as above Cont home inhalers Minimal wheezing on exam but if any worsening consider systemic steroids (6) Mucus plugging of bronchi: see #1 above (7) Pneumonia: b/l likely bacterial superinfection in the setting of rhinovirus infection completed course of antibiotics with cephalosporin/doxy deferring on MRSA coverage - MRSA TEXT[employer]MULATOR swab negative supportive care measures as above droplet precautions due to rhinovirus infection (8) Rhinovirus infection: droplet precautions supportive care (9) BRITTNEY (acute kidney injury): resolved sepsis-associated ATN / dehydration Creatinine on admission 1.6 Cr now normal (10) Elevated troponin: likely 2nd to myocardial demand ischemia in the setting of severe sepsis no evidence of ACS despite her EKG findings echo with preserved EF and normal LV wall motion peak troponin 382 with trend downward thereafter (11) NSVT (nonsustained ventricular tachycardia): 10-beat run 01/27/23 asymptomatic was lying in bed keep K close to 4 and mag close to 2 echo this admission with preserved EF and normal LV wall motion (12) Hypomagnesemia: repleted resolved (13) Severe protein-calorie malnutrition: recent colonoscopy with polyps but no colon cancer CT chest findings noted could consider CT abd/pelvis later in this stay to rule out other pathology but need to focus on pulmonary issues if CT is pursued and nothing is found on CT a/p - chronic cachexia due to severe COPD?? add MVI add boost Added megace on 01/31 (14) History of nicotine dependence: (15) CAD (coronary artery disease): 2005 cath - by report - nonobstructive CAD? stress echocardiogram 2013 - no ischemia troponin elevations noted this admission EKG findings noted (T wave inversions anteroseptal leads - transiently) echo with preserved EF and no regional WMA ideally she has ischemic evaluation in the future cont plavix cont metoprolol cont lipitor (16) Hypertension: BPs satisfactory at this time cont beta jelly cont to hold SHUBHAM (17) S/P mitral valve replacement with bioprosthetic valve: 2005 echo findings noted (18) History of aortic valve repair: 2005 findings from echo noted (19) Abnormal EKG: deep T wave inversions anteroseptal leads last cath 2005? I do not have that report last stress test 2013? these tests are noted in the record but I don't have those reports (20) Elevated INR: likely 2nd to vit K def s/p vit K x 2 with normalization of INR (21) Cervicalgia: cont lidoderm patches tylenol prn consider voltaren gel if steroids are used for COPD this will help her posterior neck pain as well she denies any recent fall to suggest trauma, fracture, etc Total Time Total Time Spent Total Time Spent (In Minutes): 32 Discharge Plan Discharge Items Patient Disposition: Home - Home Health Services Reason For Visit: PNA, SEPSIS Discharge Diagnosis: pneumonia Activity: Resume your previous activity Non-emergency contact: Primary Care Provider Call non-emergency contact if: you have any medication questions Follow-up/Referrals: Barrington Joshi MD [Primary Care Provider] - Diet: Regular and Heart Healthy Addtl Attending Provider Instructions: recommend followup with PCP in 1-2 weeks Recommend followup with pulmonary within 1 month recommend followup with cardiology within 1 month Recommend duoneb as a rescue inhaler Recommend to take Trelegy daily. This will be your maintenance medicine. You will also be taking hypertonic saline twice a day Mucinex twice a day. Continue using your flutter valve. Your PCP will work on getting you a chest vest at home. These medications will replace your advair and albuterol Pending Studies at Discharge: No Stand-Alone Forms: My Sols, Smoking Cessation Medications and DC Order Prescriptions: New Trelegy Ellipta 200-62.5-25 mcg blister with device 1 inh inhalation DAILY Qty: 60 0RF sodium chloride 7 % Solution For Nebulization 4 ml NEB BIDR Qty: 240 0RF megestrol 400 mg/10 mL (40 mg/mL) Suspension 400 mg PO DAILY Qty: 240 1RF lidocaine 5 % Adhesive Patch,Medicated 3 patch transdermal QAM Qty: 30 0RF guaifenesin [Mucinex] 600 mg Tablet Extended Release 12hr 1,200 mg PO Q12 Qty: 60 0RF magnesium oxide [MagOx] 400 mg (241.3 mg magnesium) tablet 400 mg PO BID Qty: 10 0RF Continued cyanocobalamin (vitamin B-12) 1,000 mcg tablet 1,000 mcg PO QAM Rx Instructions: otc Not on file with [facility] cholecalciferol (vitamin D3) [Vitamin D3] 2,000 unit tablet 4,000 units PO QAM Rx Instructions: otc Not on file with [facility] lisinopril 2.5 mg tablet 2.5 mg PO QAM Qty: 90 3RF atorvastatin 40 mg tablet 40 mg PO QPM Qty: 90 3RF clopidogrel 75 mg tablet 75 mg PO QPM Qty: 90 3RF folic acid 1 mg tablet 1 mg PO QAM Qty: 90 3RF montelukast 10 mg tablet 10 mg PO QAM Qty: 90 3RF pantoprazole 40 mg tablet,delayed release (DR/EC) 40 mg PO BID Qty: 90 4RF Rx Instructions: Take 1 tablet by mouth twice a day x 8 weeks, then reduce to 1 tablet daily. potassium chloride 10 mEq capsule, extended release 10 meq PO QAM spironolactone 25 mg tablet 25 mg PO QAM furosemide [Lasix] 20 mg tablet 20 mg PO QAM mirtazapine 15 mg tablet 15 mg PO HS Changed metoprolol succinate 25 mg tablet extended release 24 hr 50 mg PO PM Qty: 60 0RF Rx Instructions: 12.5 per pharmacy Discontinued gabapentin 300 mg capsule 600 mg PO BID Qty: 360 3RF nitroglycerin 0.4 mg Tablet, Sublingual See Rx Instructions .ROUTE .COMPLEX PRN (Reason: Chest Pain) Rx Instructions: Not on file with [facility] albuterol sulfate 2.5 mg /3 mL (0.083 %) solution for nebulization See Rx Instructions .ROUTE .COMPLEX PRN (Reason: SOB) Rx Instructions: Not on file with [facility] ipratropium bromide 0.02 % solution See Rx Instructions .ROUTE .COMPLEX PRN (Reason: SOB) Patient Comments: 1.25 mL INHALATION Please verify if patient is still using this neb treatment PRN; Rx Instructions: Not on file with [facility] 1.25 mL INHALATION Please verify if patient is still using this neb treatment PRN; albuterol sulfate 90 mcg/actuation HFA aerosol inhaler See Rx Instructions .ROUTE .COMPLEX PRN (Reason: SOB) Rx Instructions: Not on file with [facility] lorazepam 0.5 mg tablet 0.5 mg PO HS PRN (Reason: Other) Rx Instructions: On file with [facility], they werent sure if it was one time fill or not trazodone 50 - 100 mg PO HS PRN (Reason: Sleep) Rx Instructions: 1-2 tabs for sleep fluticasone propion-salmeterol [Advair Diskus] 250-50 mcg/dose blister with device See Rx Instructions .ROUTE .COMPLEX Rx Instructions: Not on file with [facility] No Action ipratropium-albuterol 0.5 mg-3 mg(2.5 mg base)/3 mL solution for nebulization 3 ml NEB QID PRN (Reason: shortness of breath or wheezing) amiodarone 200 mg tablet 200 mg PO QAM oxycodone 5 mg tablet See Rx Instructions .ROUTE .COMPLEX Rx Instructions: Patient uses this medication, 5mg by mouth every 4 hours as needed for severe pain ongoing therapy ongoing therapy Barrington Joshi KINGA [id number] License# [id number] Discharge Orders: Discharge Order (Routine); Ordered 02/03/23 Ordered By: Jose Robbins Admission Data Admit Date/Time: 01/26/23 18:11 Attending Provider: Jose Robbins Admit Provider: Jason Upton Primary Care Provider: Barrington Johsi Other Providers: Omer Cole ; Jason Upton ; Rajiv De La Rosa Other Interventions: Discharge Summary Assessment (RN) Last Done: 02/03/23 18:22 Coding Level of Care Code 04165 INP/OBS DISCH >30 MIN Diagnoses Collapse of left lung J98.11 Severe sepsis A41.9; R65.20 Acute respiratory failure with hypoxia and hypercapnia J96.01; J96.02 Atrial flutter with rapid ventricular response I48.92 COPD (chronic obstructive pulmonary disease) J44.9 Mucus plugging of bronchi T17.500A Pneumonia J18.9 Laterality: bilateral Lung location: lower lobe of lung Pneumonia type: due to unspecified organism Rhinovirus infection B34.8 BRITTNEY (acute kidney injury) N17.9 Elevated troponin R77.8 NSVT (nonsustained ventricular tachycardia) I47.29 Hypomagnesemia E83.42 Severe protein-calorie malnutrition E43 History of nicotine dependence Z87.891 CAD (coronary artery disease) I25.10 Hypertension I10 S/P mitral valve replacement with bioprosthetic valve Z95.3 History of aortic valve repair Z98.890; Z86.79 Abnormal EKG R94.31 Elevated INR R79.1 Cervicalgia M54.2
== END 2023-02-03 18:47 | disposition home health service (06) | DRG 871 ==
LOC: ED 13:07 → 4W 18:11 → SUATTDRO 18:11 → 4W 22:42 → 1E 01-28 17:43 → 4W 01-29 18:32
DX: J98.09 Other diseases of bronchus, not elsewhere classified; Z88.5 Allergy status to narcotic agent; Z95.2 Presence of prosthetic heart valve; E83.42 Hypomagnesemia; I47.20 Ventricular tachycardia, unspecified; E86.0 Dehydration; T17.590A Other foreign object in bronchus causing asphyxiation, initial encounter; J98.19 Other pulmonary collapse; J44.0 Chronic obstructive pulmonary disease with (acute) lower respiratory infection; Z86.73 Personal history of transient ischemic attack (TIA), and cerebral infarction without residual deficits; I25.10 Atherosclerotic heart disease of native coronary artery without angina pectoris; I48.92 Unspecified atrial flutter; I10 Essential (primary) hypertension; Y92.019 Unspecified place in single-family (private) house as the place of occurrence of the external cause; A41.9 Sepsis, unspecified organism; J96.02 Acute respiratory failure with hypercapnia; J96.21 Acute and chronic respiratory failure with hypoxia; R94.31 Abnormal electrocardiogram [ECG] [EKG]; J15.9 Unspecified bacterial pneumonia; E87.20 Acidosis, unspecified; I24.89 Other forms of acute ischemic heart disease; R65.20 Severe sepsis without septic shock; E43 Unspecified severe protein-calorie malnutrition; J96.22 Acute and chronic respiratory failure with hypercapnia; Z79.82 Long term (current) use of aspirin; N17.0 Acute kidney failure with tubular necrosis; Z87.891 Personal history of nicotine dependence; Z88.6 Allergy status to analgesic agent; B97.89 Other viral agents as the cause of diseases classified elsewhere; I50.32 Chronic diastolic (congestive) heart failure

== ENCOUNTER 2023-02-07 10:22 | Observation (INO) ==
[2023-02-07 11:04] LABS: Base Excess VBG 10.1 mEq/L; HCO3 VBG 38 mmol/L; Oxygen Saturation VBG < 60.0 %; PCO2 VBG 68 mmHg (38-50); PO2 VBG 37 mmHg; pH VBG 7.36 (7.36-7.41)
[2023-02-07] MEDS ORDERED: ALBUT/IPRATROP 3MG/0.5MG NEB 3 ML VIAL NEB STA (11:13)
[2023-02-07] MEDS ORDERED: SODIUM CHLORIDE 0.9% 1,000 ML IV ONE (11:13)
[2023-02-07] MEDS ORDERED: cefTRIAXone SODIUM 2,000 MG/70 ML BAG IV STA (11:14)
[2023-02-07] MEDS ORDERED: VANCOMYCIN CONSULT ACTIVE PRN (11:14)
[2023-02-07] MEDS ORDERED: VANCOMYCIN HCL 1,000 MG in SODIUM CHLORIDE 0.9% 500 ML IV ONE (11:14)
--- NOTE | 2023-02-07 11:21 | Emergency Department Note ---
Impression & Plan Pneumonia, Acidosis, lactic ED Provider Note NAME: JERARDO MONTES AGE: 62 SEX: F : 1960 ARRIVES VIA: Ambulance INFORMANT: Patient, ED PROVIDER(S): Dejon Ariza DO CHIEF COMPLAINT: Shortness of breath HPI: The patient is a 62-year-old female who presented to the emergency department for difficulty breathing and weakness. The patient has a history of recently discharge from our facility for extensive pneumonia. She was started on antibiotics. She was doing well until this morning. She developed severe shortness of breath and coughing. She denies having any hemoptysis or lower extremity swelling. She denies having any fever. The patient states that she called 911 because of the severity symptoms. She was found to be very hypoxic prior to arrival. She was placed on supplemental oxygen. She states that she feels somewhat improved at this time ROS: See above HPI for pertinent positives & negatives. A total of 10 systems reviewed and were otherwise negative. PAST MEDICAL HISTORY: See Below PAST SURGICAL HISTORY: See Below FAMILY HISTORY: See Below SOCIAL HISTORY: See Below HOME MEDICATIONS: See Below ALLERGIES: See Below VITALS: See Below PHYSICAL EXAMINATION: GENERAL: The patient is awake and alert. She appears somewhat anxious. EYES: The conjunctivae are clear. The pupils are round and reactive. EARS, NOSE, MOUTH AND THROAT: The nose is without any evidence of any deformity. NECK: The neck is nontender and supple. RESPIRATORY: Diminished breath sounds are noted throughout. Conversational dyspnea was noted. CARDIOVASCULAR: Tachycardic and regular heart sounds were noted to auscultation. There is no definite murmur. GASTROINTESTINAL: The abdomen is soft. Abdomen is nontender. MUSCULOSKELETAL/EXTREMITIES: There is no evidence of gross deformity full range of motion is noted in the hips and shoulders. SKIN: There is no obvious evidence of any rash. There are no petechiae, pallor or cyanosis noted. NEUROLOGIC: Patient is awake alert and oriented x3 MEDICAL DECISION MAKING: The patient is a 62-year-old female who presented to the emergency department for an evaluation of difficulty breathing and weakness. The patient was recently discharged in our facility with sepsis. The patient was compliant with her outpatient medications. She was having significant weakness and when she tried to ambulate today she became very weak. She called 911. The patient was relatively hypoxic. I discussed the patient's laboratory and radiographic studies with her. White blood cell count is significantly elevated compared to her discharge findings. She was treated with IV fluids and IV antibiotics. I discussed her condition with the on-call [facility] hospitalist. They have agreed to evaluate the patient in the emergency department for further management and disposition. Triage Nursing notes reviewed. Prior medical records reviewed Vital Signs: reviewed and remarkable for hypoxia. Differential diagnosis: Reactive airway disease, pneumonia, pneumothorax, COPD, CHF, infections, cardiac ischemia, pulmonary embolism, musculoskeletal, gastrointestinal, as well as other pathologies. ER treatment provided: See below Diagnostics interpreted by me: ECG: EKG was obtained in the emergency department. My interpretation is sinus tachycardia at [address] depressions were noted. Left ventricular hypertrophy was noted. This was compared to a tracing from January 28, 2023. Atrial fibrillation was noted on the previous tracing otherwise no specific ST changes were noted. Cardiac Monitoring: An order was placed for continuous cardiac monitoring. The monitor shows a rate of 95 bpm with sinus rhythm. Laboratory studies: As stated above and show below. Imaging studies: See below. Radiographic imaging was reviewed by myself Consultation(s): The patient's care was discussed with Dr. Hernández who is on-call for the [facility] group ED COURSE: Procedures: none Critical Care: I have personally spent greater than 50 minutes of critical care time in the direct management of this patient. This includes bedside care, interpretation of diagnostic studies, and testing, discussion with consultants, patient, and family members, and other required patient management activities. This 50 minutes is in excess of all separately billable procedures. Past Med/Surg History Medical History Abnormal EKG Acute on chronic diastolic CHF (congestive heart failure) recent diagnosis 01/07/23 at [facility]--pt states she is improving Anxiety Arthritis Bilateral pleural effusion hx CAD (coronary artery disease) Cholecystitis Chronic back pain + neck Chronic combined systolic (congestive) and diastolic (congestive) heart failure Chronic dyspnea oxygen prn Depression Diastolic CHF Elevated troponin Emphysema/COPD inhaler daily/prn, nebulizer prn Fibromyalgia GERD (gastroesophageal reflux disease) History of aortic valve disease s/p AVR (2005) History of nicotine dependence Hyperlipidemia Hyperlipidemia Hypertension Ischemic stroke Remote hx per records (?11/2018) Mitral valve disease s/p MVR (2005) On anticoagulant therapy plavix daily---MVR/AVR--follows with Krystian Valles On home oxygen therapy 2L O2 HS + PRN Osteoporosis Peripheral neuropathy Positive colorectal cancer screening using Cologuard test per pt reason for scheduled colonoscopy Positive colorectal cancer screening using Cologuard test Pulmonary hypertension Transient ischemic attack (TIA) 2019--no deficits, followed with Dr. Plummer (cleared) follows with PCP and cardiology Surgical History H/O: hysterectomy History of bronchoscopy History of colonoscopy History of esophagogastroduodenoscopy (EGD) History of heart valve replacement AVR (2005) History of lung biopsy Hx laparoscopic cholecystectomy (01/13/21) Laparoscopic Cholecystectomy Dr. Pulido 01-13-2021 S/P mitral valve replacement with bioprosthetic valve 2005 Family History Mother Slow to wake up after anesthesia Sister Family history of diabetes mellitus Father Stroke Other Coronary heart disease Denies family history of Ovarian cancer Prostate cancer Breast cancer Colorectal cancer Social History Smoking Status: Former smoker Tobacco Type: Cigarettes Age Started Using Tobacco: 18; packs per day: 0.5; Second Hand Exposure: Yes (FAMILY SMOKED); Do You Dip or Chew Tobacco: No; Hx Alcohol Use: No Hx Substance Use: No Preferred Language: Lao Communication Ability: Effective Hearing Ability: Normal Nightman Required: No Beliefs That Will Affect Care: None marital status: Current Living Situation: Family Current Living Situation Comment: son lives w/ her current occupational status: unemployed and disabled How many Children do You have: 2 Feels Safe at Home: Yes Childhood Exposure to Second-Hand Smoke: Yes Diet: regular during the past year weight has: decreased > 10 lbs Dental Care, Regularly: No Physical Activity Frequency: 3-4 Times per Week Seatbelt Use: always Sunscreen Use: Yes Assistive Devices: Oxygen - at Night Allergies Allergies Allergy/AdvReac Type Severity Reaction Status Date / Time aspirin Allergy Intermediate Hives Verified 02/07/23 13:32 hydrochlorothiazide Allergy Intermediate RASH/"Sick Verified 02/07/23 13:32 in stomach" trazodone AdvReac Severe Vomiting Verified 02/07/23 13:32 tramadol AdvReac Mild Nausea Verified 02/07/23 13:32 Home Meds Home Medications Medication Instructions Recorded Confirmed cholecalciferol (vitamin D3) 50 4,000 units PO QAM 05/21/19 02/07/23 mcg (2,000 unit) tablet (Vitamin D3) cyanocobalamin (vitamin B-12) 1,000 mcg PO QAM 05/21/19 02/07/23 1,000 mcg tablet mirtazapine 15 mg tablet 15 mg PO HS 01/07/23 02/07/23 furosemide 20 mg tablet (Lasix) 20 mg PO QAM 01/11/23 02/07/23 potassium chloride 10 mEq 10 meq PO QAM 01/11/23 02/07/23 capsule,extended release spironolactone 25 mg tablet 25 mg PO QAM 01/11/23 02/07/23 amiodarone 200 mg tablet 200 mg PO QAM 02/07/23 02/07/23 ipratropium 0.5 mg-albuterol 3 mg 3 ml NEB QID PRN shortness of 02/07/23 02/07/23 (2.5 mg base)/3 mL nebulization breath or wheezing soln oxycodone 5 mg tablet See Rx Instructions .Route .COMPLEX 02/07/23 02/07/23 Previous Rx's Medication Instructions Recorded lisinopril 2.5 mg tablet 2.5 mg PO QAM #90 tabs 03/28/22 atorvastatin 40 mg tablet 40 mg PO QPM #90 tabs 04/15/22 clopidogrel 75 mg tablet 75 mg PO QPM #90 tabs 05/03/22 folic acid 1 mg tablet 1 mg PO QAM #90 tabs 11/24/22 montelukast 10 mg tablet 10 mg PO QAM #90 tabs 12/08/22 pantoprazole 40 mg tablet,delayed 40 mg PO BID #90 tabs 12/12/22 release fluticasone fur. 200 mcg-umeclid 1 inh inhalation DAILY #60 ea 02/03/23 62.5 mcg-vilant 25 mcg inhalat.powder (Trelegy Ellipta) guaifenesin 600 mg tablet, 1,200 mg PO Q12 #60 tabs 02/03/23 extended release 12 hr (Mucinex) lidocaine 5 % topical patch 3 patch transdermal QAM #30 ea 02/03/23 magnesium oxide 400 mg (241.3 mg 400 mg PO BID #10 tabs 02/03/23 magnesium) tablet (MagOx) megestrol 400 mg/10 mL (40 mg/mL) 400 mg (10 mL) PO DAILY #240 mL 02/03/23 oral suspension metoprolol succinate 25 mg 50 mg PO PM #60 tabs 02/03/23 tablet,extended release 24 hr sodium chloride 7 % for 4 ml NEB BIDR #240 mL 02/03/23 nebulization Results & Data (ED) Vital Signs Vital Signs - 24 hr 02/07/23 10:23 02/07/23 10:38 02/07/23 10:43 Temperature 37.3 C Temperature Source Oral Pulse Rate 107 H Pulse Rate [Apical] Respiratory Rate 18 Respiratory Effort / Characteristics Non-Labored Respiratory Depth Normal Respiratory Pattern Regular Blood Pressure 158/76 H Blood Pressure [Left Arm] Blood Pressure Mean 103 Blood Pressure Mean [Left Arm] Blood Pressure Position Semi-fowlers Pulse Oximetry 64 L 94 Oxygen Delivery Method Room Air Nasal Cannula Nasal Cannula Oxygen Flow Rate 2 5 Sepsis Recent Fever Within 48 Hours No Sepsis New/Unexplained Change in Mental Status No Sepsis Action Taken by Nursing No Action Required 02/07/23 10:49 02/07/23 11:31 02/07/23 12:09 Temperature Temperature Source Pulse Rate 97 H Pulse Rate [Apical] 96 H Respiratory Rate Respiratory Effort / Characteristics Respiratory Depth Respiratory Pattern Blood Pressure Blood Pressure [Left Arm] 162/95 H Blood Pressure Mean Blood Pressure Mean [Left Arm] 117 Blood Pressure Position Pulse Oximetry 94 99 Oxygen Delivery Method Nasal Cannula Nebulizer Oxygen Flow Rate 5 Sepsis Recent Fever Within 48 Hours Sepsis New/Unexplained Change in Mental Status Sepsis Action Taken by Nursing 02/07/23 12:25 02/07/23 13:17 02/07/23 13:32 Temperature Temperature Source Pulse Rate Pulse Rate [Apical] 94 H 94 H 91 H Respiratory Rate 17 17 Respiratory Effort / Characteristics Spontaneous Respiratory Depth Respiratory Pattern Blood Pressure Blood Pressure [Left Arm] 154/117 H 152/93 H Blood Pressure Mean Blood Pressure Mean [Left Arm] 129 112 Blood Pressure Position Pulse Oximetry 100 93 93 Oxygen Delivery Method Nasal Cannula Nasal Cannula Oxygen Flow Rate 3 3 Sepsis Recent Fever Within 48 Hours Sepsis New/Unexplained Change in Mental Status Sepsis Action Taken by Nursing 02/07/23 14:16 Temperature Temperature Source Pulse Rate Pulse Rate [Apical] 95 H Respiratory Rate 12 Respiratory Effort / Characteristics Respiratory Depth Respiratory Pattern Blood Pressure Blood Pressure [Left Arm] 158/74 H Blood Pressure Mean Blood Pressure Mean [Left Arm] 102 Blood Pressure Position Pulse Oximetry Oxygen Delivery Method Oxygen Flow Rate Sepsis Recent Fever Within 48 Hours Sepsis New/Unexplained Change in Mental Status Sepsis Action Taken by Intermediate Medications Current Medication List: was personally reviewed by me Laboratory Data Attestation: I reviewed the patient's lab results. 02/07/23 10:45 02/07/23 10:45 Lab Results 02/07/23 02/07/23 02/07/23 Range/Units 10:45 10:45 10:45 WBC 21.96 H (4.8-10.8) K/ul RBC 4.50 (4.20-5.40) M/uL Hgb 12.5 (12.0-16.0) g/dl Hct 38.6 (37.0-47.0) % MCV 85.8 (80.0-100.0) fL MCH 27.8 (25.0-34.0) pg MCHC 32.4 (32.0-36.0) g/dL RDW Std Deviation 44.9 (36.4-46.3) fL RDW Coeff of Claudette 14.7 H (11.5-14.5) % Plt Count 489 H (130-400) K/uL MPV 9.7 (9.4-12.4) fL Immature Gran % (Auto) 3.0 % Neut % (Auto) 87.5 % Lymph % (Auto) 4.4 % [place] % (Auto) 4.6 % Eos % (Auto) 0.0 % Baso % (Auto) 0.5 % Neut # (Auto) 19.22 H (1.40-6.50) K/uL Lymph # (Auto) 0.96 L (1.20-3.40) K/uL [place] # (Auto) 1.02 H (0.11-0.59) K/uL Eos # (Auto) 0.00 (0.00-0.50) K/uL Baso # (Auto) 0.11 (0.00-0.20) K/uL Immature Gran # (Auto) 0.65 H (0.01-0.20) K/uL PT Cancelled INR Cancelled APTT Cancelled PTT Ratio Cancelled VBG pH (7.36-7.41) VBG pCO2 (38-50) mmHg VBG pO2 mmHg VBG HCO3 mmol/L VBG O2 Saturation % VBG Base Excess mEq/L Sodium 131 L (136-145) mmol/L Potassium 4.8 (3.5-5.1) mmol/L Chloride 85 L (98-107) mmol/L Carbon Dioxide 34 H (21-32) mmol/L Anion Gap 12 H (3-11) BUN 27 H (6-23) mg/dl Creatinine 1.52 H (0.6-1.2) mg/dl Est Cr Clr Drug Dosing 27.6 ml/min Est GFR ( Amer) 42.4 ml/min Est GFR (Non-Af Amer) 36.6 ml/min BUN/Creatinine Ratio 17.8 (10-20) Glucose 97 (70-99(Fasting)) mg/dl Lactate (0.4-2.0) mmol/L Calcium 9.9 (8.6-10.3) mg/dl Magnesium 1.8 (1.7-2.4) mg/dl Total Bilirubin 0.7 (0.2-1.0) mg/dl Direct Bilirubin 0.2 (0-0.2) mg/dl AST 54 H (13-39) U/L ALT 27 (7-52) U/L Alkaline Phosphatase 129 H (34-104) U/L Ammonia (18-72) umol/L B-Natriuretic Peptide (0-100) pg/ml Total Protein 7.9 (6.0-8.3) gm/dl Albumin 3.6 (3.4-5.0) gm/dl Procalcitonin (0-0.5) ng/ml SARS-CoV-2 (PCR) (Negative) Influenza Type A (PCR) (Neg) Influenza Type B (PCR) (Neg) RSV (RT-PCR) (Neg) 02/07/23 02/07/23 02/07/23 Range/Units 10:45 10:45 10:45 WBC (4.8-10.8) K/ul RBC (4.20-5.40) M/uL Hgb (12.0-16.0) g/dl Hct (37.0-47.0) % MCV (80.0-100.0) fL MCH (25.0-34.0) pg MCHC (32.0-36.0) g/dL RDW Std Deviation (36.4-46.3) fL RDW Coeff of Claudette (11.5-14.5) % Plt Count (130-400) K/uL MPV (9.4-12.4) fL Immature Gran % (Auto) % Neut % (Auto) % Lymph % (Auto) % [place] % (Auto) % Eos % (Auto) % Baso % (Auto) % Neut # (Auto) (1.40-6.50) K/uL Lymph # (Auto) (1.20-3.40) K/uL [place] # (Auto) (0.11-0.59) K/uL Eos # (Auto) (0.00-0.50) K/uL Baso # (Auto) (0.00-0.20) K/uL Immature Gran # (Auto) (0.01-0.20) K/uL PT INR APTT PTT Ratio VBG pH 7.36 (7.36-7.41) VBG pCO2 68 H (38-50) mmHg VBG pO2 37 mmHg VBG HCO3 38 mmol/L VBG O2 Saturation < 60.0 % VBG Base Excess 10.1 mEq/L Sodium (136-145) mmol/L Potassium (3.5-5.1) mmol/L Chloride (98-107) mmol/L Carbon Dioxide (21-32) mmol/L Anion Gap (3-11) BUN (6-23) mg/dl Creatinine (0.6-1.2) mg/dl Est Cr Clr Drug Dosing ml/min Est GFR ( Amer) ml/min Est GFR (Non-Af Amer) ml/min BUN/Creatinine Ratio (10-20) Glucose (70-99(Fasting)) mg/dl Lactate 5.8 H* (0.4-2.0) mmol/L Calcium (8.6-10.3) mg/dl Magnesium (1.7-2.4) mg/dl Total Bilirubin (0.2-1.0) mg/dl Direct Bilirubin (0-0.2) mg/dl AST (13-39) U/L ALT (7-52) U/L Alkaline Phosphatase (34-104) U/L Ammonia (18-72) umol/L B-Natriuretic Peptide (0-100) pg/ml Total Protein (6.0-8.3) gm/dl Albumin (3.4-5.0) gm/dl Procalcitonin 3.22 H (0-0.5) ng/ml SARS-CoV-2 (PCR) (Negative) Influenza Type A (PCR) (Neg) Influenza Type B (PCR) (Neg) RSV (RT-PCR) (Neg) 02/07/23 02/07/23 02/07/23 Range/Units 11:13 11:37 12:55 WBC (4.8-10.8) K/ul RBC (4.20-5.40) M/uL Hgb (12.0-16.0) g/dl Hct (37.0-47.0) % MCV (80.0-100.0) fL MCH (25.0-34.0) pg MCHC (32.0-36.0) g/dL RDW Std Deviation (36.4-46.3) fL RDW Coeff of Claudette (11.5-14.5) % Plt Count (130-400) K/uL MPV (9.4-12.4) fL Immature Gran % (Auto) % Neut % (Auto) % Lymph % (Auto) % [place] % (Auto) % Eos % (Auto) % Baso % (Auto) % Neut # (Auto) (1.40-6.50) K/uL Lymph # (Auto) (1.20-3.40) K/uL [place] # (Auto) (0.11-0.59) K/uL Eos # (Auto) (0.00-0.50) K/uL Baso # (Auto) (0.00-0.20) K/uL Immature Gran # (Auto) (0.01-0.20) K/uL PT INR APTT PTT Ratio VBG pH (7.36-7.41) VBG pCO2 (38-50) mmHg VBG pO2 mmHg VBG HCO3 mmol/L VBG O2 Saturation % VBG Base Excess mEq/L Sodium (136-145) mmol/L Potassium (3.5-5.1) mmol/L Chloride (98-107) mmol/L Carbon Dioxide (21-32) mmol/L Anion Gap (3-11) BUN (6-23) mg/dl Creatinine (0.6-1.2) mg/dl Est Cr Clr Drug Dosing ml/min Est GFR ( Amer) ml/min Est GFR (Non-Af Amer) ml/min BUN/Creatinine Ratio (10-20) Glucose (70-99(Fasting)) mg/dl Lactate (0.4-2.0) mmol/L Calcium (8.6-10.3) mg/dl Magnesium (1.7-2.4) mg/dl Total Bilirubin (0.2-1.0) mg/dl Direct Bilirubin (0-0.2) mg/dl AST (13-39) U/L ALT (7-52) U/L Alkaline Phosphatase (34-104) U/L Ammonia 30.0 (18-72) umol/L B-Natriuretic Peptide 1494 H (0-100) pg/ml Total Protein (6.0-8.3) gm/dl Albumin (3.4-5.0) gm/dl Procalcitonin (0-0.5) ng/ml SARS-CoV-2 (PCR) NEGATIVE (Negative) Influenza Type A (PCR) Negative (Neg) Influenza Type B (PCR) Negative (Neg) RSV (RT-PCR) Negative (Neg) 02/07/23 02/07/23 Range/Units 12:55 12:55 WBC (4.8-10.8) K/ul RBC (4.20-5.40) M/uL Hgb (12.0-16.0) g/dl Hct (37.0-47.0) % MCV (80.0-100.0) fL MCH (25.0-34.0) pg MCHC (32.0-36.0) g/dL RDW Std Deviation (36.4-46.3) fL RDW Coeff of Claudette (11.5-14.5) % Plt Count (130-400) K/uL MPV (9.4-12.4) fL Immature Gran % (Auto) % Neut % (Auto) % Lymph % (Auto) % [place] % (Auto) % Eos % (Auto) % Baso % (Auto) % Neut # (Auto) (1.40-6.50) K/uL Lymph # (Auto) (1.20-3.40) K/uL [place] # (Auto) (0.11-0.59) K/uL Eos # (Auto) (0.00-0.50) K/uL Baso # (Auto) (0.00-0.20) K/uL Immature Gran # (Auto) (0.01-0.20) K/uL PT 12.9 H INR 1.2 H APTT 23.9 PTT Ratio 0.8 VBG pH (7.36-7.41) VBG pCO2 (38-50) mmHg VBG pO2 mmHg VBG HCO3 mmol/L VBG O2 Saturation % VBG Base Excess mEq/L Sodium (136-145) mmol/L Potassium (3.5-5.1) mmol/L Chloride (98-107) mmol/L Carbon Dioxide (21-32) mmol/L Anion Gap (3-11) BUN (6-23) mg/dl Creatinine (0.6-1.2) mg/dl Est Cr Clr Drug Dosing ml/min Est GFR ( Amer) ml/min Est GFR (Non-Af Amer) ml/min BUN/Creatinine Ratio (10-20) Glucose (70-99(Fasting)) mg/dl Lactate 2.1 H* (0.4-2.0) mmol/L Calcium (8.6-10.3) mg/dl Magnesium (1.7-2.4) mg/dl Total Bilirubin (0.2-1.0) mg/dl Direct Bilirubin (0-0.2) mg/dl AST (13-39) U/L ALT (7-52) U/L Alkaline Phosphatase (34-104) U/L Ammonia (18-72) umol/L B-Natriuretic Peptide (0-100) pg/ml Total Protein (6.0-8.3) gm/dl Albumin (3.4-5.0) gm/dl Procalcitonin (0-0.5) ng/ml SARS-CoV-2 (PCR) (Negative) Influenza Type A (PCR) (Neg) Influenza Type B (PCR) (Neg) RSV (RT-PCR) (Neg) Administered Medications Magnesium Sulfate/Dextrose (Magnesium Sulfate / D5w) 1 gm in 100 mls @ 50 mls/h r IV ONE ONE Stop: 02/07/23 15:29 Last Admin: 02/07/23 14:09 Dose: 50 mls/hr Documented By: IKE Sodium Chloride (Sodium Chlor 7% 4 Ml Neb) 4 ml NEB BIDR RILEY Stop: 03/09/23 12:24 Last Admin: 02/07/23 13:32 Dose: 4 ml Documented By: CRG Discontinued Medications Albuterol (Albut/Ipratrop 3mg/0.5mg Neb 3 Ml Vial) 3 ml NEB NOW STA; Protocol Stop: 02/07/23 11:14 Last Admin: 02/07/23 11:30 Dose: 3 ml Documented By: ROMEO Amiodarone HCl (Amiodarone 200 Mg Tab) 400 mg PO NOW ONE Stop: 02/07/23 12:45 Last Admin: 02/07/23 14:10 Dose: 400 mg Documented By: IKE Clopidogrel Bisulfate (Clopidogrel Bisulfate 75 Mg Tab) 75 mg PO NOW ONE Stop: 02/07/23 12:43 Last Admin: 02/07/23 14:10 Dose: 75 mg Documented By: IKE Guaifenesin (Guaifenesin 600 Mg Tabcr) 600 mg PO NOW ONE Stop: 02/07/23 13:01 Last Admin: 02/07/23 14:10 Dose: 600 mg Documented By: IKE Sodium Chloride (Nss) 1,000 mls @ 999 mls/hr IV .Q1H1M ONE Stop: 02/07/23 12:13 Last Infusion: 02/07/23 13:26 Dose: 0 mls/hr Documented By: Admin: 02/07/23 11:25 Dose: 999 mls/hr Documented By: ROMEO Ceftriaxone Sodium (Rocephin) 2,000 mg in 70 mls @ 140 mls/hr IV NOW STA Stop: 02/07/23 11:43 Last Infusion: 02/07/23 13:25 Dose: 0 mls/hr Documented By: Admin: 02/07/23 11:27 Dose: 140 mls/hr Documented By: ROMEO Vancomycin HCl 1,000 mg/ (Sodium Chloride) 520 mls @ 200 mls/hr IV NOW ONE Stop: 02/07/23 13:49 Last Admin: 02/07/23 11:43 Dose: 200 mls/hr Documented By: IKE Sodium Chloride (Nss) 500 mls @ 999 mls/hr IV .Q31M ONE Stop: 02/07/23 12:30 Last Admin: 02/07/23 13:25 Dose: 999 mls/hr Documented By: IKE Montelukast Sodium (Montelukast Sodium 10 Mg Tablet) 10 mg PO NOW ONE Stop: 02/07/23 12:43 Last Admin: 02/07/23 14:11 Dose: 10 mg Documented By: IKE Oxycodone HCl (Oxycodone Hcl Ir 5 Mg Tab (Immediate Release)) 5 mg PO NOW STA Stop: 02/07/23 13:08 Last Admin: 02/07/23 14:09 Dose: 5 mg Documented By: IKE Pantoprazole Sodium (Pantoprazole 40 Mg Tab) 40 mg PO NOW STA Stop: 02/07/23 12:43 Last Admin: 02/07/23 14:10 Dose: 40 mg Documented By: IKE Imaging Data Attestation: I personally reviewed and interpreted this imaging study as follows: My Impression: 1 view chest x-ray was obtained in the emergency department. My interpretation is bilateral pneumonia, final report below. Radiologist's Impression: Chest X-Ray 02/07/23 10:49 XR chest 1V portable HISTORY: Cough. Sepsis COMPARISON: Chest 02/02/2023. FINDINGS: No pneumothorax. No pleural effusions. The lungs are hyperexpanded with apical predominant emphysematous changes. Prior cholecystectomy. There are poststernotomy changes. The heart is top normal in size. There are calcifications within the aortic knob. Diffuse interstitial thickening has slightly improved. Hazy appearance to the left midlung zone has slightly progressed. Suture material again noted within the right midlung zone. IMPRESSION: 1. Hazy appearance to the left midlung zone which has slightly progressed. This may represent a developing pneumonia. 2. Emphysema. 3. Diffuse interstitial thickening has slightly improved. This may represent resolution of the pulmonary edema on the background of chronic interstitial change. ACT 112: Negative or not required by law. Electronically signed by: Amandeep Urrutia M.D. 02/07/2023 12:05 PM Discharge Plan Visit Data Chief Complaint: Dizziness ED Provider: Dejon Ariza Discharge Problem: Pneumonia, Acidosis, lactic Forms Stand Alone Forms: My [facility] Prescriptions Prescriptions: No Action cyanocobalamin (vitamin B-12) 1,000 mcg tablet 1,000 mcg PO QAM Rx Instructions: otc Not on file with [facility] cholecalciferol (vitamin D3) [Vitamin D3] 2,000 unit tablet 4,000 units PO QAM Rx Instructions: otc Not on file with [facility] lisinopril 2.5 mg tablet 2.5 mg PO QAM Qty: 90 3RF atorvastatin 40 mg tablet 40 mg PO QPM Qty: 90 3RF clopidogrel 75 mg tablet 75 mg PO QPM Qty: 90 3RF folic acid 1 mg tablet 1 mg PO QAM Qty: 90 3RF montelukast 10 mg tablet 10 mg PO QAM Qty: 90 3RF pantoprazole 40 mg tablet,delayed release (DR/EC) 40 mg PO BID Qty: 90 4RF Rx Instructions: Take 1 tablet by mouth twice a day x 8 weeks, then reduce to 1 tablet daily. potassium chloride 10 mEq capsule, extended release 10 meq PO QAM spironolactone 25 mg tablet 25 mg PO QAM furosemide [Lasix] 20 mg tablet 20 mg PO QAM Trelegy Ellipta 200-62.5-25 mcg blister with device 1 inh inhalation DAILY Qty: 60 0RF sodium chloride 7 % Solution For Nebulization 4 ml NEB BIDR Qty: 240 0RF megestrol 400 mg/10 mL (40 mg/mL) Suspension 400 mg PO DAILY Qty: 240 1RF lidocaine 5 % Adhesive Patch,Medicated 3 patch transdermal QAM Qty: 30 0RF guaifenesin [Mucinex] 600 mg Tablet Extended Release 12hr 1,200 mg PO Q12 Qty: 60 0RF metoprolol succinate 25 mg tablet extended release 24 hr 50 mg PO PM Qty: 60 0RF Rx Instructions: 12.5 per pharmacy magnesium oxide [MagOx] 400 mg (241.3 mg magnesium) tablet 400 mg PO BID Qty: 10 0RF ipratropium-albuterol 0.5 mg-3 mg(2.5 mg base)/3 mL solution for nebulization 3 ml NEB QID PRN (Reason: shortness of breath or wheezing) amiodarone 200 mg tablet 200 mg PO QAM oxycodone 5 mg tablet See Rx Instructions .ROUTE .COMPLEX Rx Instructions: Patient uses this medication, 5mg by mouth every 4 hours as needed for severe pain ongoing therapy ongoing therapy Barrington Joshi KINGA [id number] License# [id number] mirtazapine 15 mg tablet 15 mg PO HS Referrals Referrals: Barrington Joshi MD [Primary Care Provider] -
[2023-02-07 11:26] LABS: Basophils # (auto) 0.11 K/uL (0.00-0.20); Basophils % (auto) 0.5 %; Hematocrit (blood only) 38.6 % (37.0-47.0); Hemoglobin 12.5 g/dl (12.0-16.0); Immature Granulocytes # (auto) 0.65 K/uL (0.01-0.20); Lymphocytes # (auto) 0.96 K/uL (1.20-3.40); Lymphocytes % (auto) 4.4 %; Mean Corpuscular Hemoglobin 27.8 pg (25.0-34.0); Mean Corpuscular Hgb Conc 32.4 g/dL (32.0-36.0); Mean Corpuscular Volume 85.8 fL (80.0-100.0); Mean Platelet Volume 9.7 fL (9.4-12.4); Monocytes # (auto) 1.02 K/uL (0.11-0.59); Monocytes % (auto) 4.6 %; Neutrophils # (auto) 19.22 K/uL (1.40-6.50); Neutrophils % (auto) 87.5 %; Platelet Count 489 K/uL (130-400); RDW Coefficient of Variation 14.7 % (11.5-14.5); RDW Standard Deviation 44.9 fL (36.4-46.3); White Blood Count 21.96 K/ul (4.8-10.8)
[2023-02-07 11:47] LABS: Albumin Level 3.6 gm/dl (3.4-5.0); BUN Creatinine Ratio 17.8 (10-20); Bilirubin Direct 0.2 mg/dl (0-0.2); Bilirubin,Total 0.7 mg/dl (0.2-1.0); Calcium 9.9 mg/dl (8.6-10.3); Creatinine Clr Calc Pharmacy 27.6 ml/min; Est GFR (African American) 42.4 ml/min; Est GFR (Non-African American) 36.6 ml/min; Magnesium 1.8 mg/dl (1.7-2.4); Potassium 4.8 mmol/L (3.5-5.1); Total Protein 7.9 gm/dl (6.0-8.3)
[2023-02-07] MEDS ORDERED: SODIUM CHLORIDE 0.9% 500 ML IV ONE (12:00)
--- NOTE | 2023-02-07 12:07 | XRay Report ---
XR chest 1V portable HISTORY: Cough. Sepsis COMPARISON: Chest 02/02/2023. FINDINGS: No pneumothorax. No pleural effusions. The lungs are hyperexpanded with apical predominant emphysematous changes. Prior cholecystectomy. There are poststernotomy changes. The heart is top norm al in size. There are calcifications within the aortic knob. Diffuse interstitial thickening has slig htly improved. Hazy appearance to the left midlung zone has slightly progressed. Suture material agai n noted within the right midlung zone. IMPRESSION: 1. Hazy appearance to the left midlung zone which has slightly progressed. This may represent a devel oping pneumonia. 2. Emphysema. 3. Diffuse interstitial thickening has slightly improved. This may represent resolution of the pulmon christiano edema on the background of chronic interstitial change. ACT 112: Negative or not required by law. Electronically signed by: Amandeep Urrutia M.D. 02/07/2023 12:05 PM
[2023-02-07 12:32] LABS: Influenza A virus by PCR Negative (Neg); Influenza B virus by PCR Negative (Neg); RSV by PCR Negative (Neg); SARS CoV2 RNA(COVID-19) Ceph NEGATIVE (Negative)
--- NOTE | 2023-02-07 12:32 | History & Physical Report ---
Date of Service February 07, 2023 Assessment & Plan (1) Shortness of breath: Plan: suspect multifactorial -- recent admission/bronchoscopy for mucus plugging. Completed course abx while inpatient (procal in 70s at that time, blood cultures NGTD X5 days) and dc on duoneb/hypertonic saline nebs, oral mag BNP 1398 at that time, prior admissions for CHF exacerbation w/ preserved EF and on lasix at baseline Lactic elevated 5.8, tachycardia, leukocytosis on admission -- ? lactic elevation/leukocytosis stress related/response from hypoxia/mucus plugging. CXR does not appear significantly worsened Procal 3.2 (prior 78.6, BCx NGTD last admission) -- will plan to repeat in 2 days Suspect aspect of mucus plugging given acute drop in SpO2 and CXR not significantly worsened compared to prior upon review, however PNA/aspect CHF from valvular heart disease not excluded Admit med/tele to ensure no recurrence of afib CXR w/ mid LEG lung zone opacity, slightly progressed, concerning for developing PNA. - Notes diffuse interstitial thickening slightly improved, ?resolution pulm edema in background chronic interstitial changes Lactic 5.8 --> 2.1. 1L IVF in ER, additional 500cc ordered. Suspect large aspect from her hypoxia prior to arrival as was >8 last admission, repeat in 2s Given Ceftriaxone/Vanco in ER, -Continue Rocephin/doxy IV for now -Check MRSA nares, but was negative last admission. Given vanco in ER -Sputum cx if able to obtain -Monitor blood cultures AGGRESSIVE PULMONARY TOILET for mucus plugging -Hypertonic saline nebs, Mucomyst nebs, duonebs, Mucinex PO BID (noting she only picked up her rxs yesterday) -Chest physiotherapy Consider consulting pulm if needing for bronch if unable to alleviate w/ above interventions Supplemental O2 to maintain sats - chronically on 2L, on 5--> 3L presently Consult to speech, aspiration precautions ordered for completeness(however denies issues with swallowing) Check BNP to see if any CHF symptoms contributing. Was not significantly volume overloaded last time w/ afib w/ elevated rates but CXR always appearing similar/sx of orthopnea/poor appetite Heparin SQ for DVT prophylaxis given BRITTNEY Monitor labs in AM (2) Acute respiratory failure with hypoxia and hypercapnia: Plan: Hypoxic to 64% on arrival, improved on 6L w/ EMS, currently down to 3L with SpO2 93% Blood gas w/ normal pH but elevated CO2, likley combination PNA/mucus plugging as above. Also seems anxious/suspect degree of anxiety/hyperventilation contributing Not able to tolerate CPAP/BiPAP at baseline but did use BiPAP last admission Tx as outlined above Supplemental O2 as needed to maintain sats Would have pt complete ambulatory pulse ox study to demonstrate baseline need prior to dc to see if needs increased supplementation at baseline (3) Mucus plugging of bronchi: Plan: Hx COPD as well- PFTs 2021 consistent with moderate obstruction, severely reduced DLCO at baseline Continue home inhalers, new rx for hypertonic saline Added Mucomyst -- consider sending rx for such Will consult pulm if not improving w/ aggressive pulmonary toilet as outlined above given need for bronchoscopy last admission (4) (HFpEF) heart failure with preserved ejection fraction: Plan: Elevated troponin, chronic diastolic heart failure, hypertension Last echo 12/2022 with EF 55-60%, noting bioprosthetic aortic valve, moderate aortic regurgitation. Mild pulm HTN, RVSP 39mmHg. - Dry weight ~83lbs (weight recorded on admit 45kg, dc at 38.2kg, ?correct) Check BNP to determine related to degree CHF contributing, was 1398 last admission Continue metoprolol, spironolactone, lasix Will continue diuretics for suspected contribution of diastolic HF/elevated pulm pressures, already given IVF resus in ER for elevated lactic Aggressive pulm toilet as above BNP added to ER labs Monitor for volume overload (although no LE edema, does have orthopnea/decreased appetite, ?if from PNA/mucus plugging as above) (5) Atrial flutter with rapid ventricular response: Plan: Prior admission w/ such, placed on amiodarone 400mg BID and was to continue another 5 days --> Given not picking up rx til yesterday, will plan another 4 days then decrease to 200mg daily per prior cards recommendation In sinus rhythm at present TSH wnl in Dec Continue metoprolol Monitor on telemetry Keep mag/K replete Of note, patient w/ hx CVA on plavix but not on anticoagulation. Will need continued discussions w/ patient about possibly starting coumadin - she notes that this was not previously discussed, although has been documented to have been broached. f/u discussion tomorrow (6) Rhinovirus infection: Plan: recent infection last month (7) History of aortic valve repair: Plan: noted, follows with [facility] cardiology monitoring on telemetry, if any further afib WOULD HIGHLY REC encouraging anticoagulation given hx CVA (on plavix/follows [facility] Neurology) (8) NSVT (nonsustained ventricular tachycardia): Plan: past admit keep mag replete, monitor on tele. prior echo w/ preserved EF (9) Hypomagnesemia: Plan: 1.8, 1gm IV ordered and will continue PO supplementation as sent at d/c last admission (10) COPD (chronic obstructive pulmonary disease): Plan: Noted, hx smoking but quit after CVA in 2019 On 2L NC at baseline around the clock Continue home trelegy, pulm toilet/nebs as outlined above (11) Chronic dyspnea: Plan: should be on continued aggressive pulmonary toilet at discharge at baseline (12) BRITTNEY (acute kidney injury): Plan: Cr elevated to 1.52, does appear dehydrated on admission Her home meds w/ lisinopril/lasix are continued for tomorrow morning given BP elevation and already received 1.5L for fluid resuscitation in patient only 45kg Will add hydralazine prn for BP management Patient also w/ chronic cervicalgia, taking oxycodone 5mg prn Denies any recent falls/trauma, continued home medications No headache/blurred vision reported or meningeal signs on exam Consider xray cervical spine but no acute changes reported History of Present Illness Chief Complaint: shortness of breath, hypoxia Primary Care Provider: Barrington Joshi MD 62yo female with PMHx significant for CAD, mitral valve bioprosthetic replacement, Diastolic CHF, protein calorie malnutrition with BMI less than 16, TIA (hx CVA 209, resolution in symptoms, on plavix), paroxysmal SVT, past NSTEM I, and emphysema with recent diagnosis of CHF and discharged previously on lasix after 2 days but then presented with poor PO intake/weakness/BRITTNEY and readmission for community acquired pneumonia - of note, req urgent tx to ICU during that stay for bronch/mucus plugging. SHe completed course of abx while inpatient, blood cultures were negative at that time. Was + for rhinovirus last admission, currently COVID/flu/RSV pending. Discharged with duonebs, hypertonic saline nebs, oral magnesium and presenting today with concerns of acute change in shortness of breath, feeling like she was going to pass out when trying to get ready for home health this morning but reports feeling rushed and noticed her pulse ox was low. SpO2 when EMS responded in patient on baseline 2L and requirement of 6L to maintain sats 93% Spo2 64% on RA on admission in the ER Given IVF resuscitation for sepsis/elevated lactic. She reports having cough, but not able to bring anything up. She was discharged and feeling ok, but admits she did not get her prescriptions until yesterday. She only utilized her trelegy inhaler this morning but has not taken her other medications. She is typically on 2L around the clock, currently on 5L NC. No CPAP/BiPAP as she states unable to tolerate. Noting she is very thirsty, mouth dry. She denies any significant abdominal pain/nausea but reports poor appetite. Sleeps with two pillows, difficulty laying flat. Hx CHF, EF normal last echo but she has had aortic valve replacement w/ pig valve and repair of another valve. Denies having been on anticoagulation or talked with about this in the past. Discussed not currently in afib but will monitor/consider. Reports chronic neck pain, oxycodone utilized. No meningeal signs. Denies any issues with swallowing at present, does not appear to have ever been evaluated by speech in the past. No fever/chills, but reports home health was coming today and she was feeling rushed to be able to get ready for them and thinks that's what did it and she noticed her oxygen saturation going low. Does appear very frail/cachectic. Denies any recent unplanned weight loss. She reports she has been trying to keep up with nutrition with boost at home. Discussed admission for aggressive pulmonary toilet, abx. Quit smoking in 2019 after ischemic stroke. Allergies Allergy/AdvReac Type Severity Reaction Status Date / Time aspirin Allergy Intermediate Hives Verified 02/07/23 13:32 hydrochlorothiazide Allergy Intermediate RASH/"Sick Verified 02/07/23 13:32 in stomach" trazodone AdvReac Severe Vomiting Verified 02/07/23 13:32 tramadol AdvReac Mild Nausea Verified 02/07/23 13:32 Home Medications Medication Instructions Recorded Confirmed Type cholecalciferol (vitamin D3) 50 4,000 units PO QAM 05/21/19 02/07/23 History mcg (2,000 unit) tablet (Vitamin D3) cyanocobalamin (vitamin B-12) 1,000 mcg PO QAM 05/21/19 02/07/23 History 1,000 mcg tablet lisinopril 2.5 mg tablet 2.5 mg PO QAM #90 tabs 03/28/22 02/07/23 Rx atorvastatin 40 mg tablet 40 mg PO QPM #90 tabs 04/15/22 02/07/23 Rx clopidogrel 75 mg tablet 75 mg PO QPM #90 tabs 05/03/22 02/07/23 Rx folic acid 1 mg tablet 1 mg PO QAM #90 tabs 11/24/22 02/07/23 Rx montelukast 10 mg tablet 10 mg PO QAM #90 tabs 12/08/22 02/07/23 Rx pantoprazole 40 mg tablet,delayed 40 mg PO BID #90 tabs 12/12/22 02/07/23 Rx release mirtazapine 15 mg tablet 15 mg PO HS 01/07/23 02/07/23 History furosemide 20 mg tablet (Lasix) 20 mg PO QAM 01/11/23 02/07/23 History potassium chloride 10 mEq 10 meq PO QAM 01/11/23 02/07/23 History capsule,extended release spironolactone 25 mg tablet 25 mg PO QAM 01/11/23 02/07/23 History fluticasone fur. 200 mcg-umeclid 1 inh inhalation DAILY #60 ea 02/03/23 02/07/23 Rx 62.5 mcg-vilant 25 mcg inhalat.powder (Trelegy Ellipta) guaifenesin 600 mg tablet, 1,200 mg PO Q12 #60 tabs 02/03/23 02/07/23 Rx extended release 12 hr (Mucinex) lidocaine 5 % topical patch 3 patch transdermal QAM #30 ea 02/03/23 02/07/23 Rx magnesium oxide 400 mg (241.3 mg 400 mg PO BID #10 tabs 02/03/23 02/07/23 Rx magnesium) tablet (MagOx) megestrol 400 mg/10 mL (40 mg/mL) 400 mg (10 mL) PO DAILY #240 mL 02/03/23 02/07/23 Rx oral suspension metoprolol succinate 25 mg 50 mg PO PM #60 tabs 02/03/23 02/07/23 Rx tablet,extended release 24 hr sodium chloride 7 % for 4 ml NEB BIDR #240 mL 02/03/23 02/07/23 Rx nebulization amiodarone 200 mg tablet 200 mg PO QAM 02/07/23 02/07/23 History ipratropium 0.5 mg-albuterol 3 mg 3 ml NEB QID PRN shortness of 02/07/23 02/07/23 History (2.5 mg base)/3 mL nebulization breath or wheezing soln oxycodone 5 mg tablet See Rx Instructions .Route .COMPLEX 02/07/23 02/07/23 History Past Med/Surg History Medical History Abnormal EKG Acute on chronic diastolic CHF (congestive heart failure) recent diagnosis 01/07/23 at [facility]--pt states she is improving Anxiety Arthritis Bilateral pleural effusion hx CAD (coronary artery disease) Cholecystitis Chronic back pain + neck Chronic combined systolic (congestive) and diastolic (congestive) heart failure Chronic dyspnea oxygen prn Depression Diastolic CHF Elevated troponin Emphysema/COPD inhaler daily/prn, nebulizer prn Fibromyalgia GERD (gastroesophageal reflux disease) History of aortic valve disease s/p AVR (2005) History of nicotine dependence Hyperlipidemia Hyperlipidemia Hypertension Ischemic stroke Remote hx per records (?11/2018) Mitral valve disease s/p MVR (2005) On anticoagulant therapy plavix daily---MVR/AVR--follows with Krystian Valles On home oxygen therapy 2L O2 HS + PRN Osteoporosis Peripheral neuropathy Positive colorectal cancer screening using Cologuard test per pt reason for scheduled colonoscopy Positive colorectal cancer screening using Cologuard test Pulmonary hypertension Transient ischemic attack (TIA) 2019--no deficits, followed with Dr. Plummer (cleared) follows with PCP and cardiology Surgical History H/O: hysterectomy History of bronchoscopy History of colonoscopy History of esophagogastroduodenoscopy (EGD) History of heart valve replacement AVR (2005) History of lung biopsy Hx laparoscopic cholecystectomy (01/13/21) Laparoscopic Cholecystectomy Dr. Pulido 01-13-2021 S/P mitral valve replacement with bioprosthetic valve 2005 Family History Mother Slow to wake up after anesthesia Sister Family history of diabetes mellitus Father Stroke Other Coronary heart disease Denies family history of Ovarian cancer Prostate cancer Breast cancer Colorectal cancer Social History Smoking Status: Former smoker Tobacco Type: Cigarettes Age Started Using Tobacco: 18; packs per day: 0.5; Second Hand Exposure: Yes (FAMILY SMOKED); Do You Dip or Chew Tobacco: No; Hx Alcohol Use: No Hx Substance Use: No Preferred Language: Djiboutian Communication Ability: Effective Hearing Ability: Normal 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 Beliefs That Will Affect Care: None marital status: Current Living Situation: Family Current Living Situation Comment: home with son current occupational status: unemployed and disabled How many Children do You have: 2 Other Information That Helps Us Care for You: No Feels Safe at Home: Yes Safety Concerns: Feels Safe At This Time Childhood Exposure to Second-Hand Smoke: Yes Diet: regular during the past year weight has: decreased > 10 lbs Dental Care, Regularly: No Physical Activity Frequency: 3-4 Times per Week Seatbelt Use: always Sunscreen Use: Yes Assistive Devices: Denture - Upper, Denture - Lower and Oxygen - Continuous Physical Exam Physical Exam: General: 62yo frail/malnourished female sitting up in bed, reporting chronic pain, difficulty getting up sputum,mildly uncomfortable appearing HEENT: head normocephalic, pupils equal/reactive, trachea midline, no significant JVD Resp: coarse breath sounds throughout, diminished in the bases, expiratory wheezing, significant upper airway congestion, on 5L NC Resp: regular rhythm, rates 90s on telemetry, +systolic and diastolic murmur, no pitting edema/calf tenderness GI:+BS, slight distension, nontender : no engel MSK/Neuro: nonfocal, answering questions appropriately, no slurred speech/facial droop Psych: AOx3, cooperative with exam Results & Data Results & Data Vital Signs (Past 12 Hours) Vital Signs Temp Pulse Pulse Resp BP BP Pulse Ox 02/07/23 12:09 97 H 02/07/23 11:31 96 H 162/95 H 99 02/07/23 10:49 94 02/07/23 10:43 94 02/07/23 10:38 10/10/23 10:23 37.3 C 107 H 18 158/76 H 64 L O2 Del Method O2 Flow Rate 02/07/23 12:09 02/07/23 11:31 Nebulizer 02/07/23 10:49 Nasal Cannula 5 02/07/23 10:43 Nasal Cannula 5 02/07/23 10:38 Nasal Cannula 2 02/07/23 10:23 Room Air Laboratory Results 02/07/23 02/07/23 02/07/23 Range/Units 11:37 11:13 10:45 WBC (4.8-10.8) K/ul RBC (4.20-5.40) M/uL Hgb (12.0-16.0) g/dl Hct (37.0-47.0) % MCV (80.0-100.0) fL MCH (25.0-34.0) pg MCHC (32.0-36.0) g/dL RDW Std Deviation (36.4-46.3) fL RDW Coeff of Claudette (11.5-14.5) % Plt Count (130-400) K/uL MPV (9.4-12.4) fL Immature Gran % (Auto) % Neut % (Auto) % Lymph % (Auto) % [place] % (Auto) % Eos % (Auto) % Baso % (Auto) % Neut # (Auto) (1.40-6.50) K/uL Lymph # (Auto) (1.20-3.40) K/uL [place] # (Auto) (0.11-0.59) K/uL Eos # (Auto) (0.00-0.50) K/uL Baso # (Auto) (0.00-0.20) K/uL Immature Gran # (Auto) (0.01-0.20) K/uL PT INR APTT PTT Ratio VBG pH 7.36 (7.36-7.41) VBG pCO2 68 H (38-50) mmHg VBG pO2 37 mmHg VBG HCO3 38 mmol/L VBG O2 Saturation < 60.0 % VBG Base Excess 10.1 mEq/L Sodium (136-145) mmol/L Potassium (3.5-5.1) mmol/L Chloride (98-107) mmol/L Carbon Dioxide (21-32) mmol/L Anion Gap (3-11) BUN (6-23) mg/dl Creatinine (0.6-1.2) mg/dl Est Cr Clr Drug Dosing ml/min Est GFR ( Amer) ml/min Est GFR (Non-Af Amer) ml/min BUN/Creatinine Ratio (10-20) Glucose (70-99(Fasting)) mg/dl Lactate (0.4-2.0) mmol/L Calcium (8.6-10.3) mg/dl Magnesium (1.7-2.4) mg/dl Total Bilirubin (0.2-1.0) mg/dl Direct Bilirubin (0-0.2) mg/dl AST (13-39) U/L ALT (7-52) U/L Alkaline Phosphatase (34-104) U/L Ammonia 30.0 (18-72) umol/L Total Protein (6.0-8.3) gm/dl Albumin (3.4-5.0) gm/dl Procalcitonin (0-0.5) ng/ml SARS-CoV-2 (PCR) Pending Influenza Type A (PCR) Pending Influenza Type B (PCR) Pending RSV (RT-PCR) Pending 02/07/23 02/07/23 02/07/23 Range/Units 10:45 10:45 10:45 WBC (4.8-10.8) K/ul RBC (4.20-5.40) M/uL Hgb (12.0-16.0) g/dl Hct (37.0-47.0) % MCV (80.0-100.0) fL MCH (25.0-34.0) pg MCHC (32.0-36.0) g/dL RDW Std Deviation (36.4-46.3) fL RDW Coeff of Claudette (11.5-14.5) % Plt Count (130-400) K/uL MPV (9.4-12.4) fL Immature Gran % (Auto) % Neut % (Auto) % Lymph % (Auto) % [place] % (Auto) % Eos % (Auto) % Baso % (Auto) % Neut # (Auto) (1.40-6.50) K/uL Lymph # (Auto) (1.20-3.40) K/uL [place] # (Auto) (0.11-0.59) K/uL Eos # (Auto) (0.00-0.50) K/uL Baso # (Auto) (0.00-0.20) K/uL Immature Gran # (Auto) (0.01-0.20) K/uL PT INR APTT PTT Ratio VBG pH (7.36-7.41) VBG pCO2 (38-50) mmHg VBG pO2 mmHg VBG HCO3 mmol/L VBG O2 Saturation % VBG Base Excess mEq/L Sodium 131 L (136-145) mmol/L Potassium 4.8 (3.5-5.1) mmol/L Chloride 85 L (98-107) mmol/L Carbon Dioxide 34 H (21-32) mmol/L Anion Gap 12 H (3-11) BUN 27 H (6-23) mg/dl Creatinine 1.52 H (0.6-1.2) mg/dl Est Cr Clr Drug Dosing 27.6 ml/min Est GFR ( Amer) 42.4 ml/min Est GFR (Non-Af Amer) 36.6 ml/min BUN/Creatinine Ratio 17.8 (10-20) Glucose 97 (70-99(Fasting)) mg/dl Lactate 5.8 H* (0.4-2.0) mmol/L Calcium 9.9 (8.6-10.3) mg/dl Magnesium 1.8 (1.7-2.4) mg/dl Total Bilirubin 0.7 (0.2-1.0) mg/dl Direct Bilirubin 0.2 (0-0.2) mg/dl AST 54 H (13-39) U/L ALT 27 (7-52) U/L Alkaline Phosphatase 129 H (34-104) U/L Ammonia (18-72) umol/L Total Protein 7.9 (6.0-8.3) gm/dl Albumin 3.6 (3.4-5.0) gm/dl Procalcitonin 3.22 H (0-0.5) ng/ml SARS-CoV-2 (PCR) Influenza Type A (PCR) Influenza Type B (PCR) RSV (RT-PCR) 02/07/23 02/07/23 Range/Units 10:45 10:45 WBC 21.96 H (4.8-10.8) K/ul RBC 4.50 (4.20-5.40) M/uL Hgb 12.5 (12.0-16.0) g/dl Hct 38.6 (37.0-47.0) % MCV 85.8 (80.0-100.0) fL MCH 27.8 (25.0-34.0) pg MCHC 32.4 (32.0-36.0) g/dL RDW Std Deviation 44.9 (36.4-46.3) fL RDW Coeff of Claudette 14.7 H (11.5-14.5) % Plt Count 489 H (130-400) K/uL MPV 9.7 (9.4-12.4) fL Immature Gran % (Auto) 3.0 % Neut % (Auto) 87.5 % Lymph % (Auto) 4.4 % [place] % (Auto) 4.6 % Eos % (Auto) 0.0 % Baso % (Auto) 0.5 % Neut # (Auto) 19.22 H (1.40-6.50) K/uL Lymph # (Auto) 0.96 L (1.20-3.40) K/uL [place] # (Auto) 1.02 H (0.11-0.59) K/uL Eos # (Auto) 0.00 (0.00-0.50) K/uL Baso # (Auto) 0.11 (0.00-0.20) K/uL Immature Gran # (Auto) 0.65 H (0.01-0.20) K/uL PT Pending INR Pending APTT Pending PTT Ratio Pending VBG pH (7.36-7.41) VBG pCO2 (38-50) mmHg VBG pO2 mmHg VBG HCO3 mmol/L VBG O2 Saturation % VBG Base Excess mEq/L Sodium (136-145) mmol/L Potassium (3.5-5.1) mmol/L Chloride (98-107) mmol/L Carbon Dioxide (21-32) mmol/L Anion Gap (3-11) BUN (6-23) mg/dl Creatinine (0.6-1.2) mg/dl Est Cr Clr Drug Dosing ml/min Est GFR ( Amer) ml/min Est GFR (Non-Af Amer) ml/min BUN/Creatinine Ratio (10-20) Glucose (70-99(Fasting)) mg/dl Lactate (0.4-2.0) mmol/L Calcium (8.6-10.3) mg/dl Magnesium (1.7-2.4) mg/dl Total Bilirubin (0.2-1.0) mg/dl Direct Bilirubin (0-0.2) mg/dl AST (13-39) U/L ALT (7-52) U/L Alkaline Phosphatase (34-104) U/L Ammonia (18-72) umol/L Total Protein (6.0-8.3) gm/dl Albumin (3.4-5.0) gm/dl Procalcitonin (0-0.5) ng/ml SARS-CoV-2 (PCR) Influenza Type A (PCR) Influenza Type B (PCR) RSV (RT-PCR) Diagnostic Findings Chest X-Ray 02/07/23 10:49 XR chest 1V portable HISTORY: Cough. Sepsis COMPARISON: Chest 02/02/2023. FINDINGS: No pneumothorax. No pleural effusions. The lungs are hyperexpanded with apical predominant emphysematous changes. Prior cholecystectomy. There are poststernotomy changes. The heart is top normal in size. There are calcifications within the aortic knob. Diffuse interstitial thickening has slightly improved. Hazy appearance to the left midlung zone has slightly progressed. Suture material again noted within the right midlung zone. IMPRESSION: 1. Hazy appearance to the left midlung zone which has slightly progressed. This may represent a developing pneumonia. 2. Emphysema. 3. Diffuse interstitial thickening has slightly improved. This may represent resolution of the pulmonary edema on the background of chronic interstitial change. ACT 112: Negative or not required by law. Electronically signed by: Amandeep Urrutia M.D. 02/07/2023 12:05 PM Supervising Physician Co-Signing Physician Notes I personally saw and examined the patient. I verified all velasquez points and agree with Becka Wallace PA-C with the following exceptions and/or additions: 62 year old presents to the ER with sudden onset worsening shortness of breath and hypoxia this morning. Recently discharged on February 03 for severe sepsis with collapse of her left lung. She reports ongoing improvement at home up until waking up this morning with acute shortness of breath. Reportedly already feeling well when seen. O/E HS increased rate, regular rhythm, DEDE murmurs, Chest, no wheezing, rhonchi, left sided posterior crackles, bilateral anterior rhonchi. Abdo SNT. No pedal edema A/P Acute hypoxic/hypercapnia respiratory failure - suspect mainly from mucus plugging following severe sepsis/pneumonia from last admission. Pneumonia - given procalcitonin still elevated recommend continuing short course of antibiotics however suspect acute presentation more from acute mucus plugging. Suspect elevated WBC mainly as a stress reaction and will resolve quickly but given recent antibiotic use. Otherwise as above - low suspicion of heart failure contributing towards symptoms, continue usual furosemide tomorrow PG Care Time/CCT Total # of Minutes Spent Total Time Spent with Patient: Total time spent is greater than 50% in coordination of care (as documented) at patient's floor/unit and/or counseling patient: Coding Level of Care Code 13875 INT INP/OBS CARE 3/75MIN Diagnoses Shortness of breath R06.02 Acute respiratory failure with hypoxia and hypercapnia J96.01; J96.02 Mucus plugging of bronchi T17.500A (HFpEF) heart failure with preserved ejection fraction I50.30 Atrial flutter with rapid ventricular response I48.92 Rhinovirus infection B34.8 History of aortic valve repair Z98.890; Z86.79 NSVT (nonsustained ventricular tachycardia) I47.29 Hypomagnesemia E83.42 COPD (chronic obstructive pulmonary disease) J44.9 Chronic dyspnea R06.09 BRITTNEY (acute kidney injury) N17.9
[2023-02-07] MEDS ORDERED: PANTOprazole 40 MG TAB PO STA (12:42)
[2023-02-07] MEDS ORDERED: MONTELUKAST SODIUM 10 MG TABLET PO ONE (12:42)
[2023-02-07] MEDS ORDERED: CLOPIDOGREL BISULFATE 75 MG TAB PO ONE (12:42)
[2023-02-07] MEDS ORDERED: AMIODARONE 200 MG TAB PO ONE (12:44)
[2023-02-07] MEDS ORDERED: guaiFENesin 600 MG TABCR PO ONE (13:00)
[2023-02-07] MEDS ORDERED: oxyCODONE HCL IR 5 MG TAB (IMMEDIATE RELEASE) PO STA (13:07)
[2023-02-07] MEDS ORDERED: MAGNESIUM SULFATE / D5W 1 GM/100 ML BAG IV ONE (13:30)
[2023-02-07] MEDS: SODIUM CHLOR 7% 4 ML NEB NEB SCH ×2 (13:32→19:54)
[2023-02-07 13:53] LABS: INR 1.2 (0.9-1.1); Partial Thromboplastin Ratio 0.8; Partial Thromboplastin Time 23.9 Seconds (21.0-31.0); Prothrombin Time 12.9 Seconds (9.0-12.0)
[2023-02-07 15:09] LABS: Appearance Urine Cloudy (Clear); Bacteria Urine Automated Negative (Negative); Bilirubin Urine Negative (Negative); Blood Urine Negative (Negative); Color Urine Dark Yellow; Epithelial Cell Urine Auto >30 /lpf (0-5); Glucose Urine UA Negative (Negative); Ketones Urine Negative (Negative); Leukocyte Esterase Urine 1+ (Negative); Nitrite Urine Negative (Negative); Protein Urine Trace (Negative); Specific Gravity Urine 1.018 (1.000-1.030); Urobilinogen Urine Negative (Negative); pH Urine 5.5 (4.5-7.5)
[2023-02-07 15:34] LABS: RBC Urine Automated 0-4 /hpf (0-4)
[2023-02-07] MEDS ORDERED: ONDANSETRON INJ 2 MG/ML 2 ML VIAL IV PRN (15:43)
[2023-02-07] MEDS ORDERED: hydrALAZINE HCL 20 MG/ML VIAL IV PRN (15:43)
[2023-02-07] MEDS ORDERED: ACETAMINOPHEN 325 MG TAB PO PRN (15:43)
[2023-02-07] MEDS ORDERED: ACETYLCYSTEINE 10% INHAL SOLN 4 ML **DISPENSED BY RESP. INH SCH (15:43)
--- NOTE | 2023-02-07 15:57 | Electrocardiogram Report ---
Test Reason : Blood Pressure : / mmHG Vent. Rate : 107 BPM Atrial Rate : 107 BPM P-R Int : 196 ms QRS Dur : 094 ms QT Int : 358 ms P-R-T Axes : 065 064 083 degrees QTc Int : 477 ms Sinus tachycardia Left ventricular hypertrophy with repolarization abnormality Abnormal ECG When compared with ECG of 28-JAN-2023 18:58, Significant changes have occurred Confirmed by Dejon Aquino ([id number]) on 02/07/2023 3:57:17 PM Referred By: Confirmed By:Dejon Aquino
[2023-02-07] MEDS ORDERED: ALBUT/IPRATROP 3MG/0.5MG NEB 3 ML VIAL ONE (16:06)
[2023-02-07] MEDS: ALBUT/IPRATROP 3MG/0.5MG NEB 3 ML VIAL NEB SCH ×3 (16:11→22:15)
[2023-02-07] MEDS: SPIRONOLACTONE 25 MG TAB PO SCH (19:25)
[2023-02-07] MEDS: DOXYCYCLINE HYCLATE 100 MG in DEXTROSE 5% MINI-B 100 ML IV SCH (19:25)
[2023-02-07] MEDS: oxyCODONE HCL IR 5 MG TAB (IMMEDIATE RELEASE) PO PRN (19:25)
[2023-02-07] MEDS: AMIODARONE 200 MG TAB PO SCH (21:30)
[2023-02-07] MEDS: ATORVASTATIN 40 MG TAB PO SCH (21:30)
[2023-02-07] MEDS: HEPARIN SOD 5,000 UNIT/0.5 ML VIAL SQ SCH (21:31)
[2023-02-07] MEDS: PANTOprazole 40 MG TAB PO SCH (21:31)
[2023-02-07] MEDS: MIRTAZAPINE TAB 15 MG TAB PO SCH (21:31)
[2023-02-07] MEDS: MAGNESIUM OXIDE 400 MG TAB PO SCH (21:31)
[2023-02-07] MEDS: guaiFENesin 600 MG TABCR PO SCH (21:31)
[2023-02-07] MEDS: METOPROLOL SUCC 25MG EXT REL TAB PO SCH (21:31)
[2023-02-08] MEDS: oxyCODONE HCL IR 5 MG TAB (IMMEDIATE RELEASE) PO PRN ×5 (00:17→21:20)
[2023-02-08] MEDS: ALBUT/IPRATROP 3MG/0.5MG NEB 3 ML VIAL NEB SCH ×5 (03:25→19:07)
[2023-02-08] MEDS: DOXYCYCLINE HYCLATE 100 MG in DEXTROSE 5% MINI-B 100 ML IV SCH ×2 (05:02→16:54)
[2023-02-08 06:56] LABS: Basophils # (auto) 0.05 K/uL (0.00-0.20); Basophils % (auto) 0.5 %; Hematocrit (blood only) 30.3 % (37.0-47.0); Hemoglobin 10.3 g/dl (12.0-16.0); Immature Granulocytes # (auto) 0.09 K/uL (0.01-0.20); Immature Granulocytes % (auto) 0.8 %; Lymphocytes % (auto) 12.1 %; Mean Corpuscular Hemoglobin 28.3 pg (25.0-34.0); Mean Corpuscular Volume 83.2 fL (80.0-100.0); Monocytes % (auto) 7.5 %; Neutrophils # (auto) 8.49 K/uL (1.40-6.50); Neutrophils % (auto) 79.1 %; Platelet Count 447 K/uL (130-400); RDW Coefficient of Variation 14.9 % (11.5-14.5); RDW Standard Deviation 43.7 fL (36.4-46.3); Red Blood Count 3.64 M/uL (4.20-5.40); White Blood Count 10.73 K/ul (4.8-10.8)
[2023-02-08] MEDS: SODIUM CHLOR 7% 4 ML NEB NEB SCH ×2 (07:05→19:07)
[2023-02-08 07:17] LABS: Albumin Globulin Ratio 0.9 (0.9-2); Albumin Level 2.9 gm/dl (3.4-5.0); BUN Creatinine Ratio 19.6 (10-20); Bilirubin,Total 0.4 mg/dl (0.2-1.0); Calcium 8.5 mg/dl (8.6-10.3); Creatinine Clr Calc Pharmacy 33.9 ml/min; Est GFR (African American) 73.1 ml/min; Globulin 3.1 gm/dl (2.5-4.0); Magnesium 1.8 mg/dl (1.7-2.4); Potassium 4.1 mmol/L (3.5-5.1)
[2023-02-08] MEDS ORDERED: NON-FORMULARY MEDICATION (Fluticasone-Umeclidin-Vilanter [Trelegy Ellipta] 200-62.5-25 mcg INH SCH (09:00)
[2023-02-08] MEDS: cefTRIAXone SODIUM 1,000 MG in DEXTROSE 5 % MINI-B 50 ML IV SCH (10:08)
[2023-02-08] MEDS: CHOLECALCIFEROL 1,000 UNITS 25 MCG TAB PO SCH (10:09)
[2023-02-08] MEDS: MEGESTROL ACETATE SUSP 400 MG/10 ML UDC PO SCH (10:09)
[2023-02-08] MEDS: HEPARIN SOD 5,000 UNIT/0.5 ML VIAL SQ SCH ×2 (10:09→21:01)
[2023-02-08] MEDS: PANTOprazole 40 MG TAB PO SCH ×2 (10:09→21:01)
[2023-02-08] MEDS: MAGNESIUM OXIDE 400 MG TAB PO SCH ×2 (10:09→21:04)
[2023-02-08] MEDS: AMIODARONE 200 MG TAB PO SCH ×2 (10:10→21:02)
[2023-02-08] MEDS: FOLIC ACID 1 MG TAB PO SCH (10:10)
[2023-02-08] MEDS: guaiFENesin 600 MG TABCR PO SCH ×2 (10:10→21:04)
[2023-02-08] MEDS: MONTELUKAST SODIUM 10 MG TABLET PO SCH (10:10)
[2023-02-08] MEDS: SPIRONOLACTONE 25 MG TAB PO SCH (10:10)
[2023-02-08] MEDS: FUROSEMIDE 20 MG TAB PO SCH (10:10)
[2023-02-08] MEDS: CYANOCOBALAMIN (B-12) 500 MCG TABLET PO SCH (10:10)
--- NOTE | 2023-02-08 11:24 | XRay Report ---
XR chest 2V PA/lateral HISTORY: Abnormal chest x-ray. Follow-up left lung abnormality. COMPARISON: Chest 02/07/2023. FINDINGS: No pneumothorax. The cardiac silhouette remains top normal in size. There are poststernotom y changes. Calcifications within the aortic knob. Progressive interstitial/vascular thickening sugges tive of mild pulmonary edema on the background of chronic interstitial change. This may account for t he hazy appearance to left midlung zone the prior study. Interval development of small bilateral pleu ral effusions. Suture material again noted within the right midlung zone. Prior cholecystectomy. IMPRESSION: Interval progression of the interstitial/vascular thickening and small bilateral pleural effusions. T his is consistent with progressive pulmonary edema. ACT 112: Negative or not required by law. Electronically signed by: Amandeep Urrutia M.D. 02/08/2023 11:22 AM
[2023-02-08] MEDS: UMECLIDINIUM/VILANTEROL 62.5/25MCG 7 PUFFS/INHALER INH SCH (11:25)
[2023-02-08] MEDS: FLUTICASONE FUROATE 200MCG 14 PUFFS/INHALER INH SCH (11:25)
--- NOTE | 2023-02-08 19:08 | Hospitalist Progress Note ---
Date of Service February 08, 2023 Assessment & Plan (1) Acute respiratory failure with hypoxia and hypercapnia: Plan: Hypoxic to 64% on arrival, improved on 6L w/ EMS, currently down to 3L with SpO2 93% Blood gas w/ normal pH but elevated CO2 suspect multifactorial -- recent admission/bronchoscopy for mucus plugging. Completed course abx while inpatient (procal in 70s at that time, blood cultures NGTD X5 days) and dc on duoneb/hypertonic saline nebs Suspect hypoxia secondary to her supplemental O2 falling off in her sleep Still with residual PNA on CXR but no further mucus plugging or collapse Lactic elevated 5.8 from hypoxia, tachycardia, leukocytosis on admission Procal 3.2 down from prior 78.6 Much improved with minimal interventions other than placing her back on O2 -continue Ceftriaxone, doxy for PNA for a few more days -Monitor blood cultures -continue Hypertonic saline nebs, Mucomyst nebs, duonebs, Mucinex PO BID -no steroids needed (2) Mucus plugging of bronchi: Plan: Hx COPD as well- PFTs 2021 consistent with moderate obstruction, severely reduced DLCO at baseline no recurrence of this (3) (HFpEF) heart failure with preserved ejection fraction: Plan: chronic diastolic heart failure, hypertension Last echo 12/2022 with EF 55-60%, noting bioprosthetic mitral valve, moderate aortic regurgitation. Mild pulm HTN, RVSP 39mmHg. BNP 1400, does not seem like acute CHF though Continue home metoprolol, spironolactone, lasix (4) Atrial flutter with rapid ventricular response: Plan: Prior admission w/ such, placed on amiodarone 400mg BID and was to continue another 5 days Continue amiodarone loading dose x 3 more days then decrease to 200mg daily per prior cards recommendation Remains In sinus rhythm at present TSH wnl in Sept Continue metoprolol Monitor on telemetry Keep mag/K replete-give IV mag today w/ hx CVA, and Cardiology recommended to start Coumadin last admission due to valvular Afib/flutter--> pt agreeable and not high bleeding risk. DOes have mild anemia--> anemia workup as below -Given frailty, low body weight, start Coumadin 1 mg daily and monitor INR -can follow with PCP for Coumadin management -f/u with Cardiology as outpt (5) Rhinovirus infection: Plan: recent infection last month, resolved (6) NSVT (nonsustained ventricular tachycardia): Plan: past admit keep mag replete, monitor on tele. 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 0.97 ok to continue home diuretics and lisinopril Patient also w/ chronic cervicalgia, taking oxycodone 5mg prn Denies any recent falls/trauma, continued home medications No headache/blurred vision reported or meningeal signs on exam Consider xray cervical spine but no acute changes reported (10) Anemia: Plan: hgb 10, normocytic check folate, B12, Fe studies TSH recently normal follow CBC (11) Pneumonia: Plan: as baove, treat with abx, pulm toilet f/u CXR in 4 weeks to ensure resolution (12) Severe protein-calorie malnutrition: Plan: BMI 15.2, dietary consult Plan DVT proph-startong coumadin Dispo-dc to home tomorrow Admission and Anticipated Discharge Date Admission Date: February 07, 2023 Anticipated date of discharge: 02/09/23 Subjective Pt feeling better, remains stable on 3LNC. Denies sputum production. No SOB, no CP. No abd pain, is moving bowels. Tele with NSR rates 80-90s No history of bleeding from anywhere or ICH. Is agreeable to starting coumadin Physical Exam Constitutional: + underweight; no acute distress Neck: trachea midline, no thyromegaly Respiratory: normal respiratory effort; no cough Auscultation: + rhonchi (left lower lung field) and + wheezes (faint scattered); no rales Cardiovascular: Rate/Rhythm: regular rate and regular rhythm Heart Sounds: + click; no murmur Chest (Breasts): Chest: + abnormal inspection of chest (sternotomy scar) Gastrointestinal (Abdomen): normal bowel sounds, soft, nontender, no hepatosplenomegaly Musculoskeletal: Extremities: + extremities abnormal to inspection (sarcopenia), no cyanosis and no clubbing Skin: no rashes, warm and dry Neurologic: moves all extremities and awake; no focal motor deficits Psychiatric: A+Ox3, euthymic affect Lymphatic: no lymphedema Results & Data Results & Data Vital Signs (Past 12 Hours) Vital Signs Temp Pulse Pulse Resp BP Pulse Ox Pulse Ox 02/08/23 15:32 36.7 C 81 20 107/73 94 02/08/23 15:59 92 H 02/08/23 15:43 94 02/08/23 14:30 92 H 14 96 02/08/23 13:53 95 02/08/23 13:35 02/08/23 12:33 02/08/23 11:16 37.1 C 95 H 16 125/65 93 02/08/23 10:49 92 02/08/23 10:03 69 18 93 02/08/23 07:43 36.7 C 88 16 150/68 H 92 02/08/23 07:14 84 Pulse Ox O2 Del Method O2 Del Method O2 Flow Rate O2 Flow Rate O2 Flow Rate 02/08/23 15:32 Nasal Cannula 2 02/08/23 15:59 02/08/23 15:43 Nasal Cannula 2 02/08/23 14:30 Nasal Cannula 2 02/08/23 13:53 02/08/23 13:35 95 2 02/08/23 12:33 Nasal Cannula 2 02/08/23 11:16 Nasal Cannula 2 02/08/23 10:49 Nasal Cannula 2 02/08/23 10:03 Nasal Cannula 2 02/08/23 07:43 Nasal Cannula 2 02/08/23 07:14 Laboratory Results CBC, CMP, magnesium reviewed PG Care Time/CCT Total # of Minutes Spent Total Time Spent with Patient: Total time spent is greater than 50% in coordination of care (as documented) at patient's floor/unit and/or counseling patient: Coding Level of Care Code 36993 SUB INP/OBS CARE 2/35MIN Diagnoses Acute respiratory failure with hypoxia and hypercapnia J96.01; J96.02 Mucus plugging of bronchi T17.500A (HFpEF) heart failure with preserved ejection fraction I50.30 Atrial flutter with rapid ventricular response I48.92 Rhinovirus infection B34.8 NSVT (nonsustained ventricular tachycardia) I47.29 Hypomagnesemia E83.42 COPD (chronic obstructive pulmonary disease) J44.9 BRITTNEY (acute kidney injury) N17.9 Anemia D64.9 Pneumonia J18.9 Laterality: bilateral Lung location: lower lobe of lung Pneumonia type: due to unspecified organism Severe protein-calorie malnutrition E43 (11) Pneumonia Laterality: bilateral Lung location: lower lobe of lung Pneumonia type: due to unspecified organism Qualified Code(s): J18.9 - Pneumonia, unspecified organism
[2023-02-08] MEDS ORDERED: MAGNESIUM SULFATE / D5W 1 GM/100 ML BAG IV ONE (19:12)
[2023-02-08] MEDS: WARFARIN SOD 1 MG TAB PO SCH (20:57)
[2023-02-08] MEDS ORDERED: CLOPIDOGREL BISULFATE 75 MG TAB PO SCH (21:00)
[2023-02-08] MEDS: MIRTAZAPINE TAB 15 MG TAB PO SCH (21:02)
[2023-02-08] MEDS: ATORVASTATIN 40 MG TAB PO SCH (21:03)
[2023-02-08] MEDS: METOPROLOL SUCC 25MG EXT REL TAB PO SCH (21:03)
[2023-02-09] MEDS: oxyCODONE HCL IR 5 MG TAB (IMMEDIATE RELEASE) PO PRN ×3 (01:21→13:41)
[2023-02-09] MEDS: DOXYCYCLINE HYCLATE 100 MG in DEXTROSE 5% MINI-B 100 ML IV SCH ×2 (04:43→16:19)
[2023-02-09 06:10] LABS: Basophils # (auto) 0.03 K/uL (0.00-0.20); Basophils % (auto) 0.3 %; Eosinophils # (auto) 0.01 K/uL (0.00-0.50); Eosinophils % (auto) 0.1 %; Hematocrit (blood only) 37.4 % (37.0-47.0); Hemoglobin 12.2 g/dl (12.0-16.0); Immature Granulocytes # (auto) 0.08 K/uL (0.01-0.20); Immature Granulocytes % (auto) 0.8 %; Lymphocytes % (auto) 11.8 %; Mean Corpuscular Hgb Conc 32.6 g/dL (32.0-36.0); Mean Platelet Volume 9.3 fL (9.4-12.4); Monocytes # (auto) 0.71 K/uL (0.11-0.59); Neutrophils # (auto) 8.15 K/uL (1.40-6.50); Platelet Count 489 K/uL (130-400); RDW Coefficient of Variation 15.4 % (11.5-14.5); RDW Standard Deviation 45.5 fL (36.4-46.3); Red Blood Count 4.35 M/uL (4.20-5.40); White Blood Count 10.18 K/ul (4.8-10.8)
[2023-02-09 06:31] LABS: Calcium 9.4 mg/dl (8.6-10.3); Creatinine Clr Calc Pharmacy 29.3 ml/min; Est GFR (African American) 61.4 ml/min; Magnesium 1.9 mg/dl (1.7-2.4); Potassium 4.2 mmol/L (3.5-5.1)
[2023-02-09 06:37] LABS: Prothrombin Time 11.2 Seconds (9.0-12.0)
[2023-02-09 06:50] LABS: Folate (Folic Acid),Ser orPlas > 22.30 ng/ml (>5.38)
[2023-02-09 06:51] LABS: Vitamin B12 > 1500 pg/ml (180-914)
[2023-02-09] MEDS: SODIUM CHLOR 7% 4 ML NEB NEB SCH (06:55)
[2023-02-09] MEDS ORDERED: ALBUT/IPRATROP 3MG/0.5MG NEB 3 ML VIAL NEB SCH (07:00)
[2023-02-09] MEDS: cefTRIAXone SODIUM 1,000 MG in DEXTROSE 5 % MINI-B 50 ML IV SCH (08:48)
[2023-02-09] MEDS: MAGNESIUM OXIDE 400 MG TAB PO SCH (08:49)
[2023-02-09] MEDS: AMIODARONE 200 MG TAB PO SCH (08:49)
[2023-02-09] MEDS: PANTOprazole 40 MG TAB PO SCH (08:49)
[2023-02-09] MEDS: guaiFENesin 600 MG TABCR PO SCH (08:49)
[2023-02-09] MEDS: FOLIC ACID 1 MG TAB PO SCH (08:50)
[2023-02-09] MEDS: CHOLECALCIFEROL 1,000 UNITS 25 MCG TAB PO SCH (08:50)
[2023-02-09] MEDS: FUROSEMIDE 20 MG TAB PO SCH (08:50)
[2023-02-09] MEDS: SPIRONOLACTONE 25 MG TAB PO SCH (08:50)
[2023-02-09] MEDS: CYANOCOBALAMIN (B-12) 500 MCG TABLET PO SCH (08:50)
[2023-02-09] MEDS: MONTELUKAST SODIUM 10 MG TABLET PO SCH (08:50)
[2023-02-09] MEDS: UMECLIDINIUM/VILANTEROL 62.5/25MCG 7 PUFFS/INHALER INH SCH (08:51)
[2023-02-09] MEDS: HEPARIN SOD 5,000 UNIT/0.5 ML VIAL SQ SCH (08:51)
[2023-02-09] MEDS: FLUTICASONE FUROATE 200MCG 14 PUFFS/INHALER INH SCH (08:51)
[2023-02-09] MEDS: MEGESTROL ACETATE SUSP 400 MG/10 ML UDC PO SCH (10:15)
[2023-02-09] MEDS: WARFARIN SOD 1 MG TAB PO SCH (15:23)
--- NOTE | 2023-02-09 16:41 | Discharge Summary ---
Discharge Summary Date of Service February 09, 2023 Notes For Next Care Provider Needs PT/INR monitoring Medication Changes From Visit COumadin 1mg po daily cefdinir 300mg po bid x 3 days doxycycline 100mg po bid x 3 days Admission HPI Per Admitting Provider 62yo female with PMHx significant for CAD, mitral valve bioprosthetic replacement, Diastolic CHF, protein calorie malnutrition with BMI less than 16, TIA (hx CVA 209, resolution in symptoms, on plavix), paroxysmal SVT, past NSTEMI, and emphysema with recent diagnosis of CHF and discharged previously on lasix after 2 days but then presented with poor PO intake/weakness/BRITTNEY and readmission for community acquired pneumonia - of note, req urgent tx to ICU during that stay for bronch/mucus plugging. SHe completed course of abx while inpatient, blood cultures were negative at that time. Was + for rhinovirus last admission, currently COVID/flu/RSV pending. Discharged with duonebs, hypertonic saline nebs, oral magnesium and presenting today with concerns of acute change in shortness of breath, feeling like she was going to pass out when trying to get ready for home health this morning but reports feeling rushed and noticed her pulse ox was low. SpO2 when EMS responded in patient on baseline 2L and requirement of 6L to maintain sats 93% Spo2 64% on RA on admission in the ER Given IVF resuscitation for sepsis/elevated lactic. She reports having cough, but not able to bring anything up. She was discharged and feeling ok, but admits she did not get her prescriptions until yesterday. She only utilized her trelegy inhaler this morning but has not taken her other medications. She is typically on 2L around the clock, currently on 5L NC. No CPAP/BiPAP as she states unable to tolerate. Noting she is very thirsty, mouth dry. She denies any significant abdominal pain/nausea but reports poor appetite. Sleeps with two pillows, difficulty laying flat. Hx CHF, EF normal last echo but she has had aortic valve replacement w/ pig valve and repair of another valve. Denies having been on anticoagulation or talked with about this in the past. Discussed not currently in afib but will mo nitor/consider. Reports chronic neck pain, oxycodone utilized. No meningeal signs. Denies any issues with swallowing at present, does not appear to have ever been evaluated by speech in the past. No fever/chills, but reports home health was coming today and she was feeling rushed to be able to get ready for them and thinks that's what did it and she noticed her oxygen saturation going low. Does appear very frail/cachectic. Denies any recent unplanned weight loss. She reports she has been trying to keep up with nutrition with boost at home. Discussed admission for aggressive pulmonary toilet, abx. Quit smoking in 2019 after ischemic stroke. Principal Dx & Hospital Course #1 = Principal Diagnosis (1) Acute respiratory failure with hypoxia and hypercapnia: Hypoxic to 64% on arrival, improved on 6L w/ EMS, currently down to 2L with SpO2 93% Blood gas w/ normal pH but elevated CO2 suspect multifactorial -- recent admission/bronchoscopy for mucus plugging. Completed course abx while inpatient (procal in 70s at that time, blood cultures NGTD X5 days) and dc on duoneb/hypertonic saline nebs Suspect hypoxia secondary to her supplemental O2 falling off in her sleep Still with residual PNA on CXR but no further mucus plugging or collapse Lactic elevated 5.8 from hypoxia, tachycardia, leukocytosis on admission Procal 3.2 down from prior 78.6 Much improved with minimal interventions other than placing her back on O2 -received Ceftriaxone, doxy for PNA and convert to cefdinir and po doxy x 3 more days after discharge -Monitor blood cultures-NGTD -continue Hypertonic saline nebs, duonebs, Mucinex PO BID on discharge, flutter valve -no steroids needed -f/u with PULM after discharge (2) Mucus plugging of bronchi: Hx COPD as well- PFTs 2021 consistent with moderate obstruction, severely reduced DLCO at baseline no recurrence of this (3) (HFpEF) heart failure with preserved ejection fraction: chronic diastolic heart failure, hypertension Last echo 12/2022 with EF 55-60%, noting bioprosthetic mitral valve, moderate aortic regurgitation. Mild pulm HTN, RVSP 39mmHg. BNP 1400, does not seem like acute CHF though Continue home metoprolol, spironolactone, lasix (4) Atrial flutter with rapid ventricular response: Prior admission w/ such, placed on amiodarone 400mg BID and was to continue another 5 days Continue amiodarone loading dose x 2 more days then decrease to 200mg daily per prior cards recommendation Remains In sinus rhythm here TSH wnl in Dec Continue metoprolol w/ hx CVA, and Cardiology recommended to start Coumadin last admission due to valvular Afib/flutter--> pt agreeable and not high bleeding risk. DOes have mild anemia--> anemia workup as below -Given frailty, low body weight, start Coumadin 1 mg daily and monitor INR- advised to check PT/INR on Monday after discharge with results to PCP -can follow with PCP for Coumadin management -f/u with Cardiology as outpt (5) Rhinovirus infection: recent infection last month, resolved (6) NSVT (nonsustained ventricular tachycardia): past admit keep mag replete, monitor on tele. 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 ok to continue home diuretics and lisinopril Patient also w/ chronic cervicalgia, taking oxycodone 5mg prn Denies any recent falls/trauma, continued home medications No headache/blurred vision reported or meningeal signs on exam Consider xray cervical spine but no acute changes reported (10) Anemia: hgb 10, normocytic checked folate, B12, Fe studies-all normal or concistent with anemia of chronic disease TSH recently normal follow CBC as outpt (11) Pneumonia: as above, treat with abx, pulm toilet f/u CXR in 4 weeks to ensure resolution f/u wih PULM (12) Severe protein-calorie malnutrition: BMI 15.2 Plan DVT proph-starting coumadin Dispo-dc to home today, stronger on day of dischrge and no rehab needed Discharge Exam Constitutional + underweight; no acute distress Neck trachea midline, no thyromegaly Respiratory normal respiratory effort; no cough Auscultation: + rhonchi (left lower lung field) and + wheezes (faint scattered); no rales Cardiovascular Rate/Rhythm: regular rate and regular rhythm Heart Sounds: + click; no murmur Chest (Breasts) Chest: + abnormal inspection of chest (sternotomy scar) Gastrointestinal (Abdomen) normal bowel sounds, soft, nontender, no hepatosplenomegaly Musculoskeletal Extremities: + extremities abnormal to inspection (sarcopenia), no cyanosis and no clubbing Skin no rashes, warm and dry Neurologic moves all extremities and awake; no focal motor deficits Psychiatric A+Ox3, euthymic affect Lymphatic no lymphedema Updated Medication List Medication Instructions Recorded Confirmed Type cholecalciferol (vitamin D3) 50 4,000 units PO QAM 05/21/19 02/07/23 History mcg (2,000 unit) tablet (Vitamin D3) cyanocobalamin (vitamin B-12) 1,000 mcg PO QAM 05/21/19 02/07/23 History 1,000 mcg tablet lisinopril 2.5 mg tablet 2.5 mg PO QAM #90 tabs 03/28/22 02/07/23 Rx atorvastatin 40 mg tablet 40 mg PO QPM #90 tabs 04/15/22 02/07/23 Rx clopidogrel 75 mg tablet 75 mg PO QPM #90 tabs 05/03/22 02/07/23 Rx folic acid 1 mg tablet 1 mg PO QAM #90 tabs 11/24/22 02/07/23 Rx montelukast 10 mg tablet 10 mg PO QAM #90 tabs 12/08/22 02/07/23 Rx pantoprazole 40 mg tablet,delayed 40 mg PO BID #90 tabs 12/12/22 02/07/23 Rx release mirtazapine 15 mg tablet 15 mg PO HS 01/07/23 02/07/23 History furosemide 20 mg tablet (Lasix) 20 mg PO QAM 01/11/23 02/07/23 History fluticasone fur. 200 mcg-umeclid 1 inh inhalation DAILY #60 ea 02/03/23 02/07/23 Rx 62.5 mcg-vilant 25 mcg inhalat.powder (Trelegy Ellipta) guaifenesin 600 mg tablet, 1,200 mg PO Q12 #60 tabs 02/03/23 02/07/23 Rx extended release 12 hr (Mucinex) lidocaine 5 % topical patch 3 patch transdermal QAM #30 ea 02/03/23 02/07/23 Rx megestrol 400 mg/10 mL (40 mg/mL) 400 mg (10 mL) PO DAILY #240 mL 02/03/23 02/07/23 Rx oral suspension sodium chloride 7 % for 4 ml NEB BIDR #240 mL 02/03/23 02/07/23 Rx nebulization amiodarone 200 mg tablet 200 mg PO QAM 02/07/23 02/07/23 History ipratropium 0.5 mg-albuterol 3 mg 3 ml NEB QID PRN shortness of 02/07/23 02/07/23 History (2.5 mg base)/3 mL nebulization breath or wheezing soln oxycodone 5 mg tablet See Rx Instructions .Route .COMPLEX 02/07/23 02/07/23 History cefdinir 300 mg capsule 300 mg PO BID #6 caps 02/09/23 Rx doxycycline hyclate 100 mg tablet 100 mg PO BID #6 tabs 02/09/23 Rx metoprolol succinate 25 mg 12.5 mg PO DAILY #45 tabs 02/10/23 Rx tablet,extended release 24 hr nebulizer accessories #5 ea 02/13/23 Rx nebulizers #1 ea 02/13/23 Rx spironolactone 25 mg tablet 25 mg PO QAM #90 tabs 02/13/23 Rx warfarin 1 mg tablet (Jantoven) See Rx Instructions PO DAILY@1600 02/13/23 Rx #100 tabs magnesium oxide 400 mg (241.3 mg 400 mg PO BID #60 tabs 02/14/23 Rx magnesium) tablet (MagOx) Hospital Stay Data Consultations 02/07/23 12:13 ED Decision to Admit Stat Pending Results Patient Have Any Pending Studies at Discharge: Yes (final blood culture) Discharge Instructions Given to Patient (Per Discharging Provider) You were admitted with low oxygen levels likely due to your oxygen falling off while sleeping. You still have pneumonia and should finish out 3 more days of antibiotics. You were started on Coumadin here as a blood thinner to prevent stroke from atrial fibrillation. Please have your blood test to check your INR test on Monday and await Dr. Joshi's office to contact you with the results. Your Coumadin dose may need to be adjusted based on this result. If you have any issues with bleeding, please call your doctor or return to the hospital. Total Time Total Time Spent Total Time Spent (In Minutes): 35 min Coding Level of Care Code 48316 INP/OBS DISCH >30 MIN Diagnoses Acute respiratory failure with hypoxia and hypercapnia J96.01; J96.02 Mucus plugging of bronchi T17.500A (HFpEF) heart failure with preserved ejection fraction I50.30 Atrial flutter with rapid ventricular response I48.92 Rhinovirus infection B34.8 NSVT (nonsustained ventricular tachycardia) I47.29 Hypomagnesemia E83.42 COPD (chronic obstructive pulmonary disease) J44.9 BRITTNEY (acute kidney injury) N17.9 Anemia D64.9 Pneumonia J18.9 Laterality: bilateral Lung location: lower lobe of lung Pneumonia type: due to unspecified organism Severe protein-calorie malnutrition E43
[2023-02-11] MEDS ORDERED: AMIODARONE 200 MG TAB PO SCH (09:00)
== END 2023-02-09 19:57 | disposition home health service (06) | DRG 193 ==
LOC: ED 10:22 → EDINP 13:05 → INTOOBSV 13:05 → SUATTDRO 13:05 → 2N 15:44

== ENCOUNTER 2023-06-01 15:17 | Inpatient (IN) ==
[2023-06-01] MEDS ORDERED: NALOXONE HCL 2 MG in SODIUM CHLORIDE 0.9% 1,000 ML IV STA (15:55)
[2023-06-01] MEDS ORDERED: SODIUM CHLORIDE 0.9% 500 ML IV ONE (15:56)
[2023-06-01] MEDS ORDERED: DEXTROSE 50% 50 ML SYRINGE IV ONE ×2 (15:58)
[2023-06-01 16:05] LABS: Basophils # (auto) 0.06 K/uL (0.00-0.20); Basophils % (auto) 0.6 %; Eosinophils # (auto) 0.01 K/uL (0.00-0.50); Eosinophils % (auto) 0.1 %; Hematocrit (blood only) 46.8 % (37.0-47.0); Hemoglobin 15.3 g/dl (12.0-16.0); Immature Granulocytes # (auto) 0.06 K/uL (0.01-0.20); Immature Granulocytes % (auto) 0.6 %; Lymphocytes # (auto) 0.77 K/uL (1.20-3.40); Lymphocytes % (auto) 7.4 %; Mean Corpuscular Hemoglobin 28.8 pg (25.0-34.0); Mean Corpuscular Hgb Conc 32.7 g/dL (32.0-36.0); Mean Platelet Volume 11.1 fL (9.4-12.4); Monocytes # (auto) 0.68 K/uL (0.11-0.59); Monocytes % (auto) 6.5 %; Neutrophils # (auto) 8.81 K/uL (1.40-6.50); Neutrophils % (auto) 84.8 %; Platelet Count 223 K/uL (130-400); RDW Coefficient of Variation 14.1 % (11.5-14.5); RDW Standard Deviation 45.3 fL (36.4-46.3); Red Blood Count 5.32 M/uL (4.20-5.40); White Blood Count 10.39 K/ul (4.8-10.8)
[2023-06-01] MEDS ORDERED: ONDANSETRON INJ 2 MG/ML 2 ML VIAL ONE (16:05)
[2023-06-01] MEDS ORDERED: ONDANSETRON INJ 2 MG/ML 2 ML VIAL IV STA (16:05)
[2023-06-01] MEDS ORDERED: ALBUT/IPRATROP 3MG/0.5MG NEB 3 ML VIAL NEB STA ×2 (16:08→16:16)
[2023-06-01] MEDS ORDERED: methylPREDNISolone 125 MG/2 ML VIAL IV STA (16:08)
[2023-06-01 16:12] LABS: HCO3 VBG 35 mmol/L; Oxygen Saturation VBG < 60.0 %; PCO2 VBG 58 mmHg (38-50); PO2 VBG 21 mmHg; pH VBG 7.39 (7.36-7.41)
[2023-06-01] MEDS ORDERED: CALCIUM GLUCONATE 1000 MG/60 ML NSS IV ONE (16:14)
[2023-06-01] MEDS ORDERED: NALOXONE HCL INJ 1 MG/ML 2ML SYR INTNAS ONE (16:15)
[2023-06-01] MEDS ORDERED: STAT IV/IM STA (16:16)
[2023-06-01] MEDS ORDERED: CALCIUM GLUCONATE 10% 1,000 MG in SODIUM CHLOR 0.9% MINI-B 50 ML IV ONE (16:16)
[2023-06-01 16:25] LABS: iSTAT Creatinine 4.5 mg/dl (0.6-1.3); iSTAT Hemoglobin 14.6 g/dl (12.0-16.0); iSTAT Potassium 5.8 mmol/L (3.3-5.0)
--- NOTE | 2023-06-01 16:26 | XRay Report ---
XR chest 1V portable HISTORY: Sepsis COMPARISON: Chest 02/08/2023. FINDINGS: No pneumothorax. No pleural effusions. The heart is normal in size. There are poststernotom y changes. Mild emphysema is suggested. There is mild diffuse interstitial thickening. This has impro shanae and suggest mild congestive change. No new focal lung consolidations to suggest pneumonia. There are suture material within the right midlung zone. No acute fractures. IMPRESSION: Mild congestive change which has improved in the interval. ACT 112: Negative or not required by law. Electronically signed by: Amandeep Urrutia M.D. 06/01/2023 4:25 PM
[2023-06-01 16:31] LABS: INR 0.9 (0.9-1.1); Partial Thromboplastin Ratio 0.9; Partial Thromboplastin Time 25 Seconds (21-31); Prothrombin Time 10.2 Seconds (9.0-12.0)
--- NOTE | 2023-06-01 16:48 | CT Scan Report ---
HEAD CT NONCONTRAST CT DOSE: HISTORY: Altered mental status. TECHNIQUE: Multiaxial CT images of the head were performed without the use of intravenous contrast. A utomated exposure control was utilized for this study. A dose lowering technique was utilized adheri ng to the principles of ALARA. Comparison: Head CT 03/28/2020. Findings: The paranasal sinuses and mastoid air cells are clear. The calvarium and skull base are int act. There is no mass, hematoma, midline shift, acute infarct. White matter hypodensity is nonspecifi c but suggestive of microvascular ischemic change. The ventricles and sulci demonstrate mild age-rela jeremy involutional changes. There is an old lacunar infarct again noted within the right basal ganglia. Impression: No significant change compared to the prior study. No acute intracranial abnormality. ACT 112: Negative or not required by law. Electronically signed by: Amandeep Urrutia M.D. 06/01/2023 4:47 PM
--- NOTE | 2023-06-01 16:48 | CT Scan Report ---
CT SCAN OF THE CERVICAL SPINE CLINICAL HISTORY: Change in mental status. COMPARISON STUDY: CT angiogram of the neck dated 12/18/2018 and 04/19/2013. TECHNIQUE: CT scan of the cervical spine is performed from the skull base to the upper thoracic spine . Images are reviewed in the axial, sagittal, and coronal planes. IV contrast was not administered fo r this examination. A dose lowering technique was utilized adhering to the principles of ALARA. CT DOSE: 1248.74 mGy.cm FINDINGS: Skeletal structures: The skeletal structures are osteopenic. There is no evidence of fracture or subl uxation involving the cervical spine. Vertebral body height and alignment are maintained. Tiny anteri or osteophytes are seen throughout. The odontoid process and lateral masses are intact. The atlantoax ial articulation is preserved nothing productive degenerative changes. The spinous processes appear i ntact. There is mild multilevel facet arthropathy. Numerous tiny lucencies are again seen throughout the skeletal structures. These are unchanged dating back to 2012 and abdominal significance. Intervertebral discs: There is minimal degenerative disc space narrowing. Central canal: Posterior disc osteophyte complexes at C3-C4, C4-C5, and C5-C6 may contribute to mild acquired compromise of the central canal. Soft tissues: The prevertebral and paraspinous soft tissues are within normal limits. The thyroid gla nd is heterogeneous and contains coarse calcifications. There is atherosclerotic calcification of the carotid bulbs. Calvarium: The visualized calvarium at the skull base appears intact. Brain parenchyma: Partially visualized brain parenchyma at the skull base is within normal limits. Sinuses and mastoids: The visualized paranasal sinuses are clear. The mastoid air cells are well pneu matized. Lung apices: Advanced symptoms in this change is noted. Upper lobe lung parenchyma is otherwise clear as imaged. IMPRESSION: 1. There is no evidence of fracture or subluxation involving the cervical spine. 2. Osteopenia and degenerative change as above. 3. Emphysema. ACT 112: Negative or not required by law. Electronically signed by: Mack Perez M.D. 06/01/2023 4:46 PM
[2023-06-01 16:50] LABS: Alanine Aminotransferase 75 U/L (7-52); Albumin Level 4.1 gm/dl (3.4-5.0); Alkaline Phosphatase 124 U/L (34-104); Anion Gap 9 (3-11); Aspartate Aminotransferase 109 U/L (13-39); BUN Creatinine Ratio 10.5 (10-20); Bilirubin,Total 0.4 mg/dl (0.2-1.0); Blood Urea Nitrogen 41 mg/dl (6-23); Calcium 9.4 mg/dl (8.6-10.3); Carbon Dioxide 31 mmol/L (21-32); Chloride 88 mmol/L (98-107); Creatinine Clr Calc Pharmacy 9.1 ml/min; Est GFR (African American) 13.6 ml/min; Est GFR (Non-African American) 11.7 ml/min; Glucose 64 mg/dl (70-99(Fasting)); Magnesium 3.1 mg/dl (1.7-2.4); Potassium 6.3 mmol/L (3.5-5.1); Sodium 128 mmol/L (136-145); Total Protein 7.3 gm/dl (6.0-8.3); Troponin I High Sensitivity 91.8 pg/ml (0-14)
[2023-06-01] MEDS ORDERED: ALBUTEROL 0.5% NEB SOLN 2.5 MG/0.5 ML VIAL NEB STA (16:52)
[2023-06-01] MEDS ORDERED: PIPERACILLIN/TAZOBACTAM 4.5 GM/120 ML BAG IV ONE (16:53)
[2023-06-01 17:04] LABS: Adenovirus PCR Not Detected (NotDetected); Bordetella parapertussis PCR Not Detected (NotDetected); Bordetella pertussis PCR Not Detected (NotDetected); Chlamydia pneumoniae PCR Not Detected (NotDetected); Coronavirus 229E PCR Not Detected (NotDetected); Coronavirus CoV-2 (COVID19)PCR Not Detected (NotDetected); Coronavirus HKU1 PCR Not Detected (NotDetected); Coronavirus NL63 PCR Not Detected (NotDetected); Coronavirus OC43PCR Not Detected (NotDetected); Human Metapneumovirus PCR Not Detected (NotDetected); Influenza B PCR Not Detected (NotDetected); Mycoplasma pneumoniae PCR Not Detected (NotDetected); Parainfluenza Virus 1 PCR Not Detected (NotDetected); Parainfluenza Virus 2 PCR Not Detected (NotDetected); Parainfluenza Virus 3 PCR Not Detected (NotDetected); Parainfluenza Virus 4 PCR Not Detected (NotDetected); Respiratory Syncytial VirusPCR Not Detected (NotDetected); Rhinovirus/Enterovirus PCR Not Detected (NotDetected)
[2023-06-01 17:07] LABS: Influenza A (H1 2009) PCR DETECTED (NotDetected)
[2023-06-01] MEDS ORDERED: VANCOMYCIN HCL 750 MG in SODIUM CHLORIDE 0.9% 250 ML IV ONE (17:15)
[2023-06-01] MEDS ORDERED: OSELTAMIVIR PHOSPHATE 75 MG CAP PO STA (17:16)
[2023-06-01] MEDS ORDERED: SODIUM CHLORIDE 0.9% 1,000 ML IV ONE (17:18)
[2023-06-01] MEDS ORDERED: OSELTAMIVIR PHOSPHATE SUSP 30 MG/5 ML UDP PO ONE (17:30)
--- NOTE | 2023-06-01 17:50 | History & Physical Report ---
Date of Service June 01, 2023 Assessment & Plan (1) Sepsis: Plan: Sepsis, influenza +/- superimposed secondary pneumonia Flu positive on bio fire. Procalcitonin is elevated with profound volume contraction and sepsis, although no discrete lobar consolidation is noted on chest x-ray Has felt ill for approximately 3 days, poor appetite, general unwellness. Denies cough, sputum production, dysuria, abdominal pain Patient empirically covered with Zosyn/vancomycin while in the ER. No history of MRSA MRSA nares pending, zosyn continued Patient received methylprednisolone load while in the ER due to concurrent COPD, no wheezing on admission will continue 40 twice daily and wean based on clinical progress Procalcitonin 1.05, clinically volume contracted, lactate elevated, potassium 6.3 and 5.8 on recheck, sodium 126, creatinine acutely elevated from baseline of around 1.11.24, 3.90 on admit CThead without acute findings Chest x-ray: Mild diffuse interstitial thickening and suspected mild congestive change without pleural effusions or acute lobar pneumonia noted ABW 30 cc/kg = 1140 cc of fluid. Patient had received 1500 cc of acute crystalloid resuscitation in the ER with clinical improvement. Remains clinically volume contracted and slightly hypotensive on first reevaluation - VB.39/58/21/35 Patient with significant sedation on initial ER assessment which rapidly improved following Narcan. She denies opiate use, has a history of chronic opioid dependence as described oxycodone. Narcan school lunch monitor as needed. Repeat lactate increased at 4.9 following initial fluids, had not yet completed full crystalloid bolus prior to draw and had remained hypotensive in the 90s. On reassessment patient is clinically improving, BP in the 110s. Will repeat lactate in 2 hours, no indication for pressors at time of reevaluation -Patient bladder scanned is starting to have urine output on second re- evaluation now with ~200 cc of urine, signed out to overnight provider who will monitor. Hyperkalemia has resolved. BP improved. Fluids continued, monitoring for fluid overload as noted (2) Flu: Plan: as noted. Continue tamiflu. Renally adjust based on AM BMP (3) BRITTNEY (acute kidney injury): Plan: Prerenal, received fluid repletion as noted. Potassium normalized, creatinine being to downtrend on recheck Held lisinopril/Miguel A Renally dose medications BMP daily (4) Hyperkalemia: Plan: Hyperkalemia Suspect with BRITTNEY, severe volume contraction and sepsis Received 1500 cc of saline, calcium gluconate, albuterol while in the ER Urine output starting to improve potassium subsequently normalized Minimal urine output in the last few days with severe dehydration, continue to follow for UOP and Insulin initially deferred due to hypoglycemia with glucose of 64 s/p 1 amp of D50 with poor UOP (5) COPD (chronic obstructive pulmonary disease): Plan: COPD Former tobacco use, on baseline 2 L nasal cannula Continue home Trelegy, pulmonary toilet Lungs are diminished but without overt wheezing at times of bedside assessment. Steroids continued twice daily - DuoNebs urine, continue hypertonic saline (6) Paroxysmal atrial fibrillation: Plan: Heart failure preserved ejection fraction, history of A-fib, bioprosthetic mitral valve, Last echo 2022 EF 55 to 60%, bioprosthetic mitral valve present Patient with BNP elevation of up to 1400 in the past without acute CHF. On admit 1482. Continue metoprolol, spironolactone, Lasix Continued on amiodarone Patient has recurrently declined anticoagulation/Coumadin as an outpatient and is maintained on amiodarone. Anticoagulation is deferred. Remains in sinus on admission. Due to new first-degree block and transaminitis Lyme/Anaplasma testing has been (7) Elevated troponin I level: Plan: Patient denies chest pain on admission. Suspect demand ischemia. downtrending on recheck. EKG w/ T wave inversions but no ST changes. (8) S/P mitral valve replacement with bioprosthetic valve: Plan DVT prophylaxis: Heparin twice daily CODE STATUS: DNR/DNI. Discussed with patient on admission, she reports that she would not want revival if she her heart or breathing stopped completely but would be okay with intubation for airway protection outside of a cardiopulmonary arrest Diet: Heart healthy Disposition: PCU History of Present Illness Primary Care Provider: Barrington Joshi MD Jennifer is a 62-year-old female with a past medical history of long-term opiate use, paroxysmal atrial fibrillation, heart failure preserved ejection fraction, NSVT, paroxysmal SVT, CAD, mitral valve replacement with bioprosthetic valve, CVA, hypertension, hyperlipidemia and multifactorial dyspnea last discharged 02/10/2023 for acute respiratory failure suspected due to possible pneumonia +/- mucous plugging who presented to the ER sedated, severely volume contracted and ill-appearing. Patient initially poorly responsive with rapid improvement following intranasal Narcan and does have a history of opiate dependence and narcotic use. Following this she was found to be flu positive with additional concerns for sepsis. Jennifer reports that she has had almost no appetite for around 2 days and almost no urine output over that same period. She feels tired and dehydrated. She has had fluid overload in the past but does not feel this way currently. She has not had a cough, fever, or chills but has felt generally unwell and cold at night. She has no abdominal or flank pain. Denies recent narcotic and substance use. Denies alcohol tobacco use. She denies lightheadedness or dizziness. Initially was sedated without able to give conversation and improved following Narcan on ER assessment; at time of bedside assessment she is oriented to name, year, and hospital. Is not oriented to month and appears fatigued. She is awake and alert at second reassessment. She reports she did take her medications this morning as directed. She denies chest pain, chest pressure, shortness of breath, and cough. Denies dysuria but again notes that she has had almost no urine output for 2 days. Medical History: Reviewed Medications: Reviewed Surgical History: Reviewed Family history: Reviewed Allergies: Reviewed Social History:Reviewed Code Status: DNR/DNI Allergies Allergy/AdvReac Type Severity Reaction Status Date / Time aspirin Allergy Intermediate Hives Verified 06/01/23 19:10 hydrochlorothiazide Allergy Intermediate RASH/"Sick Verified 06/01/23 19:10 in stomach" trazodone AdvReac Severe Vomiting Verified 06/01/23 19:10 tramadol AdvReac Mild Nausea Verified 04/07/23 14:30 Home Medications Medication Instructions Recorded Confirmed Type ipratropium 0.5 mg-albuterol 3 mg 3 ml NEB QID PRN shortness of 02/07/23 06/01/23 History (2.5 mg base)/3 mL nebulization breath or wheezing soln nebulizer accessories #5 ea 02/13/23 04/28/23 Rx nebulizers #1 ea 02/13/23 04/28/23 Rx Wheeled Walker #1 ea 02/22/23 04/28/23 Rx atorvastatin 40 mg tablet 40 mg PO QPM #90 tabs 10/25/23 02/01/24 Rx cholecalciferol (vitamin D3) 50 4,000 unit PO QAM #90 tabs 02/22/23 06/01/23 Rx mcg (2,000 unit) tablet (Vitamin D3) clopidogrel 75 mg tablet 75 mg PO QPM #90 tabs 02/22/23 06/01/23 Rx cyanocobalamin (vitamin B-12) 1,000 mcg PO QAM #90 tabs 02/22/23 06/01/23 Rx 1,000 mcg tablet folic acid 1 mg tablet 1 mg PO QAM #90 tabs 02/22/23 06/01/23 Rx furosemide 20 mg tablet (Lasix) 20 mg PO QAM #90 tabs 02/22/23 06/01/23 Rx lisinopril 2.5 mg tablet 2.5 mg PO QAM #90 tabs 02/22/23 06/01/23 Rx metoprolol succinate 25 mg 12.5 mg (1/2 x 25 mg) PO DAILY #45 02/22/23 06/01/23 Rx tablet,extended release 24 hr tabs montelukast 10 mg tablet 10 mg PO QAM #90 tabs 02/22/23 06/01/23 Rx pantoprazole 40 mg tablet,delayed 40 mg PO DAILY #90 tabs 02/22/23 06/01/23 Rx release amiodarone 200 mg tablet 200 mg PO QAM #90 tabs 02/28/23 06/01/23 Rx spironolactone 25 mg tablet 25 mg PO QAM #90 tabs 02/28/23 06/01/23 Rx fluticasone fur. 200 mcg-umeclid 1 inh inhalation DAILY #60 ea 03/06/23 06/01/23 Rx 62.5 mcg-vilant 25 mcg inhalat.powder (Trelegy Ellipta) sodium chloride 7 % for 4 ml NEB BIDR #240 mL 05/11/23 06/01/23 Rx nebulization magnesium oxide 400 mg (241.3 mg 400 mg PO BID #180 tabs 05/23/23 06/01/23 Rx magnesium) tablet (MagOx) Past Med/Surg History Medical History Abnormal CT scan, chest Atrial flutter with rapid ventricular response Chronic anticoagulation Paroxysmal atrial fibrillation Acute respiratory failure with hypoxia and hypercapnia Positive colorectal cancer screening using Cologuard test On anticoagulant therapy plavix daily---MVR/AVR--follows with Krystian Valles Positive colorectal cancer screening using Cologuard test per pt reason for scheduled colonoscopy Acute on chronic diastolic CHF (congestive heart failure) recent diagnosis 01/07/23 at [facility]--pt states she is improving Abnormal EKG Elevated troponin Chronic combined systolic (congestive) and diastolic (congestive) heart failure Bilateral pleural effusion hx History of nicotine dependence Chronic dyspnea oxygen prn Diastolic CHF Mitral valve disease s/p MVR (2005) History of aortic valve disease s/p AVR (2005) Chronic back pain + neck Arthritis Cholecystitis Hyperlipidemia Pulmonary hypertension Ischemic stroke Remote hx per records (?11/2018) Osteoporosis CAD (coronary artery disease) Emphysema/COPD inhaler daily/prn, nebulizer prn Fibromyalgia Peripheral neuropathy GERD (gastroesophageal reflux disease) Depression Anxiety Transient ischemic attack (TIA) 2019--no deficits, followed with Dr. Plummer (cleared) follows with PCP and cardiology Hyperlipidemia On home oxygen therapy 2L O2 HS + PRN Hypertension Surgical History Hx laparoscopic cholecystectomy (01/13/21) Laparoscopic Cholecystectomy Dr. Pulido 01-13-2021 S/P mitral valve replacement with bioprosthetic valve 2005 History of esophagogastroduodenoscopy (EGD) History of colonoscopy History of heart valve replacement AVR (2005) History of lung biopsy History of bronchoscopy H/O: hysterectomy Family History Mother Slow to wake up after anesthesia Sister Family history of diabetes mellitus Father Stroke Other Coronary heart disease Denies family history of Ovarian cancer Prostate cancer Breast cancer Colorectal cancer Social History Smoking Status: Former smoker Tobacco Type: Cigarettes Age Started Using Tobacco: 18; packs per day: 0.5; Second Hand Exposure: Yes (FAMILY SMOKED); Do You Dip or Chew Tobacco: No; Hx Alcohol Use: No Hx Substance Use: No Preferred Language: Lithuanian Communication Ability: Effective Hearing Ability: Normal Ticketer Required: No Beliefs That Will Affect Care: None marital status: Current Living Situation: Family Current Living Situation Comment: home with son current occupational status: unemployed and disabled How many Children do You have: 2 Feels Safe at Home: Yes Childhood Exposure to Second-Hand Smoke: Yes Diet: regular during the past year weight has: decreased > 10 lbs Dental Care, Regularly: No Physical Activity Frequency: 3-4 Times per Week Seatbelt Use: always Sunscreen Use: Yes Assistive Devices: Nebulizer and Oxygen - Continuous (Blake's) Physical Exam Physical Exam: General: Oriented to name, place and year, not month. NAD. Cooperative. HEENT: Atraumatic, normocephalic. Vision intact. PERLAA, 3-4mm, no pinpoint pupils present. Pulm: CTAB A&P. -wheezes, -rales, -rhonchi. Symmetrical chest rise. No increased work of breathing. No respiratory distress. Cardiac: RRR, -mrg. Radial pulses intact and symmetrical. Abdominal: Nontender, nondistended, soft. BS present. Ext: warm, dry. Results & Data Results & Data Vital Signs (Past 12 Hours) Vital Signs Temp Pulse Resp BP Pulse Ox O2 Del Method O2 Flow Rate 06/01/23 16:19 99 Nasal Cannula 3 06/01/23 15:37 36.9 C 67 19 98/51 L 85 L Room Air 06/01/23 15:28 68 PG Care Time/CCT Total # of Minutes Spent Total Time Spent with Patient: Total time spent is greater than 50% in coordination of care (as documented) at patient's floor/unit and/or counseling patient: Coding Level of Care Code 08395 INT INP/OBS CARE 375MIN Diagnoses Sepsis A41.9 Flu J11.1 BRITTNEY (acute kidney injury) N17.9 Hyperkalemia E87.5 COPD (chronic obstructive pulmonary disease) J44.9 Paroxysmal atrial fibrillation I48.0 Elevated troponin I level R77.8 S/P mitral valve replacement with bioprosthetic valve Z95.3
[2023-06-01] MEDS ORDERED: SODIUM CHLORIDE 0.9% 250 ML IV ONE (18:14)
[2023-06-01] MEDS ORDERED: SODIUM CHLORIDE 0.9% 1,000 ML IV SCH (18:15)
[2023-06-01] MEDS ORDERED: SODIUM ZIRCONIUM CYCLOSILICATE 10 GM PACKET PO ONE (18:54)
[2023-06-01 18:58] LABS: Troponin I High Sensitivity 66.3 pg/ml (0-14)
[2023-06-01 19:04] LABS: Calcium 8.2 mg/dl (8.6-10.3); Creatinine Clr Calc Pharmacy 10.4 ml/min; Est GFR (Non-African American) 13.8 ml/min; Potassium 4.1 mmol/L (3.5-5.1)
[2023-06-01] MEDS: D5W AND NSS 1,000 ML IV SCH (19:07)
[2023-06-01 19:16] LABS: Lyme Ab IgG w/WB Rflx Negative (Negative)
[2023-06-01 19:17] LABS: Lyme Ab IgM w/WB Rflx Negative (Negative)
--- NOTE | 2023-06-01 19:46 | Emergency Department Note ---
History of Present Illness General Chief complaint: Illness Time Seen by Provider: 06/01/23 16:02 History of Present Illness Provider complaint: Altered mental status 62-year-old female brought into the emergency department for altered mental status. Per EMS the patient has been lethargic since yesterday and has not been getting up out of her chair. EMS reports that the patient was satting 75% on room air. Home Medications Medication Instructions Recorded Confirmed Type ipratropium 0.5 mg-albuterol 3 mg 3 ml NEB QID PRN shortness of 02/07/23 06/01/23 History (2.5 mg base)/3 mL nebulization breath or wheezing soln nebulizer accessories #5 ea 02/13/23 04/28/23 Rx nebulizers #1 ea 02/13/23 04/28/23 Rx Wheeled Walker #1 ea 02/22/23 04/28/23 Rx atorvastatin 40 mg tablet 40 mg PO QPM #90 tabs 02/22/23 06/01/23 Rx cholecalciferol (vitamin D3) 50 4,000 unit PO QAM #90 tabs 02/22/23 06/01/23 Rx mcg (2,000 unit) tablet (Vitamin D3) clopidogrel 75 mg tablet 75 mg PO QPM #90 tabs 02/22/23 06/01/23 Rx cyanocobalamin (vitamin B-12) 1,000 mcg PO QAM #90 tabs 02/22/23 06/01/23 Rx 1,000 mcg tablet folic acid 1 mg tablet 1 mg PO QAM #90 tabs 02/22/23 06/01/23 Rx furosemide 20 mg tablet (Lasix) 20 mg PO QAM #90 tabs 02/22/23 06/01/23 Rx lisinopril 2.5 mg tablet 2.5 mg PO QAM #90 tabs 02/22/23 06/01/23 Rx metoprolol succinate 25 mg 12.5 mg (1/2 x 25 mg) PO DAILY #45 02/22/23 06/01/23 Rx tablet,extended release 24 hr tabs montelukast 10 mg tablet 10 mg PO QAM #90 tabs 02/22/23 06/01/23 Rx pantoprazole 40 mg tablet,delayed 40 mg PO DAILY #90 tabs 02/22/23 06/01/23 Rx release amiodarone 200 mg tablet 200 mg PO QAM #90 tabs 02/28/23 06/01/23 Rx spironolactone 25 mg tablet 25 mg PO QAM #90 tabs 02/28/23 06/01/23 Rx fluticasone fur. 200 mcg-umeclid 1 inh inhalation DAILY #60 ea 03/06/23 06/01/23 Rx 62.5 mcg-vilant 25 mcg inhalat.powder (Trelegy Ellipta) sodium chloride 7 % for 4 ml NEB BIDR #240 mL 05/11/23 06/01/23 Rx nebulization magnesium oxide 400 mg (241.3 mg 400 mg PO BID #180 tabs 05/23/23 06/01/23 Rx magnesium) tablet (MagOx) Allergies Allergy/AdvReac Type Severity Reaction Status Date / Time aspirin Allergy Intermediate Hives Verified 06/01/23 19:10 hydrochlorothiazide Allergy Intermediate RASH/"Sick Verified 06/01/23 19:10 in stomach" trazodone AdvReac Severe Vomiting Verified 06/01/23 19:10 tramadol AdvReac Mild Nausea Verified 04/07/23 14:30 Past Med/Surg History Medical History Abnormal CT scan, chest Atrial flutter with rapid ventricular response Chronic anticoagulation Paroxysmal atrial fibrillation Acute respiratory failure with hypoxia and hypercapnia Positive colorectal cancer screening using Cologuard test On anticoagulant therapy plavix daily---MVR/AVR--follows with Krystian Valles Positive colorectal cancer screening using Cologuard test per pt reason for scheduled colonoscopy Acute on chronic diastolic CHF (congestive heart failure) recent diagnosis 01/07/23 at [facility]--pt states she is improving Abnormal EKG Elevated troponin Chronic combined systolic (congestive) and diastolic (congestive) heart failure Bilateral pleural effusion hx History of nicotine dependence Chronic dyspnea oxygen prn Diastolic CHF Mitral valve disease s/p MVR (2005) History of aortic valve disease s/p AVR (2005) Chronic back pain + neck Arthritis Cholecystitis Hyperlipidemia Pulmonary hypertension Ischemic stroke Remote hx per records (?11/2018) Osteoporosis CAD (coronary artery disease) Emphysema/COPD inhaler daily/prn, nebulizer prn Fibromyalgia Peripheral neuropathy GERD (gastroesophageal reflux disease) Depression Anxiety Transient ischemic attack (TIA) 2019--no deficits, followed with Dr. Plummer (cleared) follows with PCP and cardiology Hyperlipidemia On home oxygen therapy 2L O2 HS + PRN Hypertension Surgical History Hx laparoscopic cholecystectomy (01/13/21) Laparoscopic Cholecystectomy Dr. Pulido 01-13-2021 S/P mitral valve replacement with bioprosthetic valve 2005 History of esophagogastroduodenoscopy (EGD) History of colonoscopy History of heart valve replacement AVR (2005) History of lung biopsy History of bronchoscopy H/O: hysterectomy Family History Mother Slow to wake up after anesthesia Sister Family history of diabetes mellitus Father Stroke Other Coronary heart disease Denies family history of Ovarian cancer Prostate cancer Breast cancer Colorectal cancer Social History Smoking Status: Former smoker Tobacco Type: Cigarettes Age Started Using Tobacco: 18; packs per day: 0.5; Second Hand Exposure: Yes (FAMILY SMOKED); Do You Dip or Chew Tobacco: No; Hx Alcohol Use: No Hx Substance Use: No Preferred Language: Greenlandic Communication Ability: Effective Hearing Ability: Normal 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 Required: No Beliefs That Will Affect Care: None marital status: Current Living Situation: Family Current Living Situation Comment: home with son current occupational status: unemployed and disabled How many Children do You have: 2 Feels Safe at Home: Yes Childhood Exposure to Second-Hand Smoke: Yes Diet: regular during the past year weight has: decreased > 10 lbs Dental Care, Regularly: No Physical Activity Frequency: 3-4 Times per Week Seatbelt Use: always Sunscreen Use: Yes Assistive Devices: Nebulizer and Oxygen - Continuous (Blake's) Physical Exam Vital Signs Vital Signs - 24 hr 06/01/23 15:28 06/01/23 15:37 06/01/23 16:19 Temperature 36.9 C Temperature Source Oral Pulse Rate 68 67 Pulse Rate [Apical] Respiratory Rate 19 Respiratory Effort / Characteristics Respiratory Depth Respiratory Pattern Blood Pressure 98/51 L Blood Pressure [Right Arm] Blood Pressure Mean 66 Blood Pressure Mean [Right Arm] Blood Pressure Position [Right Arm] Pulse Oximetry 85 L 99 Oxygen Delivery Method Room Air Nasal Cannula Oxygen Flow Rate 3 Sepsis Recent Fever Within 48 Hours No Sepsis New/Unexplained Change in Mental Status Yes Sepsis Action Taken by Nursing Physician Notified 06/01/23 17:51 06/01/23 18:06 Temperature Temperature Source Pulse Rate Pulse Rate [Apical] 80 78 Respiratory Rate 25 H 16 Respiratory Effort / Characteristics Non-Labored Spontaneous Non-Labored Spontaneous Respiratory Depth Normal Normal Respiratory Pattern Regular Blood Pressure Blood Pressure [Right Arm] 95/50 L 113/56 L Blood Pressure Mean Blood Pressure Mean [Right Arm] 65 75 Blood Pressure Position [Right Arm] Sitting Pulse Oximetry 94 Oxygen Delivery Method Room Air Room Air Oxygen Flow Rate Sepsis Recent Fever Within 48 Hours Sepsis New/Unexplained Change in Mental Status Sepsis Action Taken by Nursing Physical Exam GENERAL: Cachectic and ill-appearing HENT: Exam performed. -Head: Normocephalic and atraumatic. EYES: Pupils 1 mm and nonreactive. CV: Normal rate, regular rhythm, normal heart sounds and intact distal pulses. There is no peripheral edema. Palpable radial pulses bue. PULM/CHEST: Diminished breath sounds bilaterally. ABD: The abdomen is soft. NEURO: Patient is confused. GCS: 12 (E:4, V:3, M:5) Course Course 1602: The patient was evaluated in room B3. A complete history and physical exam was performed Cardiac monitoring: An order was placed for continuous cardiac monitoring. The monitor shows a rate of 70 with sinus rhythm interpreted by me Called to bedside by nursing patient was found to be having altered mental status, hypoxic and hypotensive. Supplemental oxygen was applied which improved the patient's oxygen saturation. Patient was still having altered mental status. Accu-Chek was conducted and showed the patient had glucose of 61. 1 amp of D50 given to the patient. No significant response. 2 mg of Narcan was given to the patient and the patient became more alert and started conversing clearly with us. Patient has diminished breath sounds bilaterally. DuoNeb and steroids ordered for the patient as patient has a history of COPD. Sepsis protocols were initiated. Patient does have a history of CHF. Normal saline 500 cc bolus given to the patient. Patient's EKG shows deeply inverted T waves. Will conduct i-STAT to make sure that there is now electrolyte abnormality. 1616: [id number] i-STAT shows that the patient is hyperkalemic and has an BRITTNEY. Calcium gluconate ordered for the patient. 1700: Patient's lungs showed improved aeration with better air movement. Patient's potassium is 6.3. Patient be treated with additional albuterol treatments to lower the patient's potassium as well as to improve the patient's oxygenation, aeration, and respiratory status. Patient's sodium 128 creatinine 3.9 BUN 41. Patient's initial lactic acid 2.2. Additional 1 L of fluid ordered for the patient for total of 30 cc/kg normal saline bolus. Broad-spectrum antibiotics will be ordered for the patient cefepime and vancomycin. VBG shows a venous pH of 7.39 venous pCO2 of 58 bicarb 35. 1740: Patient's oxygen saturations improved with supplemental oxygen. Patient is positive for influenza. Tamiflu ordered for the patient. [facility] Administered Medications Dextrose/Sodium Chloride (D5w And Nss) 1,000 mls @ 100 mls/hr IV .Q10H RILEY Stop: 07/01/23 18:29 Last Admin: 06/01/23 19:07 Dose: 100 mls/hr Documented By: IRENA Discontinued Medications Albuterol (Albut/Ipratrop 3mg/0.5mg Neb 3 Ml Vial) 3 ml NEB NOW STA; Protocol Stop: 06/01/23 16:09 Last Admin: 06/01/23 16:33 Dose: 3 ml Documented By: BINA Albuterol (Albut/Ipratrop 3mg/0.5mg Neb 3 Ml Vial) 3 ml NEB NOW STA; Protocol Stop: 06/01/23 16:17 Last Admin: 06/01/23 16:34 Dose: 3 ml Documented By: MES Albuterol (Albuterol 0.5% Neb Soln 2.5 Mg/0.5 Ml Vial) 5 mg NEB NOW STA; Protocol Stop: 06/01/23 16:53 Last Admin: 06/01/23 17:16 Dose: 5 mg Documented By: IRENA Calcium Gluconate (Calcium Gluconate 1000 Mg/60 Ml Nss) Confirm Administered Dose 1,000 mg IV .STK-MED ONE Stop: 06/01/23 16:15 Last Admin: 06/01/23 16:17 Dose: 1,000 mg Documented By: BINA Dextrose (Dextrose 50% 50 Ml Syringe) 50 ml IV NOW ONE Stop: 06/01/23 15:59 Last Admin: 06/01/23 16:15 Dose: 50 ml Documented By: IRENA Dextrose (Dextrose 50% 50 Ml Syringe) Confirm Administered Dose 50 ml IV .STK- MED ONE Stop: 06/01/23 15:59 Last Admin: 06/01/23 16:15 Dose: Not Given Documented By: IRENA Sodium Chloride (Nss) 500 mls @ 999 mls/hr IV .Q31M ONE Stop: 06/01/23 16:26 Last Infusion: 06/01/23 16:46 Dose: Infused Documented By: Admin: 06/01/23 16:15 Dose: 999 mls/hr Documented By: IRENA Calcium Gluconate 1,000 mg/ (Sodium Chloride) 60 mls @ 240 mls/hr IV NOW ONE Stop: 06/01/23 16:30 Last Admin: 06/01/23 16:17 Dose: Not Given Documented By: BINA Piperacillin Sod/Tazobactam Sod (Zosyn) 4.5 gm in 120 mls @ 240 mls/hr IV NOW ONE Stop: 06/01/23 17:22 Last Infusion: 06/01/23 17:48 Dose: Infused Documented By: Admin: 06/01/23 17:17 Dose: 240 mls/hr Documented By: IRENA Vancomycin HCl 750 mg/ Sodium (Chloride) 265 mls @ 200 mls/hr IV NOW ONE Stop: 06/01/23 18:34 Last Infusion: 06/01/23 19:20 Dose: Infused Documented By: Admin: 06/01/23 17:36 Dose: 200 mls/hr Documented By: MMDinora Sodium Chloride (Nss) 1,000 mls @ 999 mls/hr IV .Q1H1M ONE Stop: 06/01/23 18:18 Last Infusion: 06/01/23 19:19 Dose: Infused Documented By: Admin: 06/01/23 17:37 Dose: 999 mls/hr Documented By: MMZ Sodium Chloride (Nss) 250 mls @ 999 mls/hr IV .Q16M ONE Stop: 06/01/23 18:29 Last Infusion: 06/01/23 19:20 Dose: Infused Documented By: Admin: 06/01/23 19:03 Dose: 999 mls/hr Documented By: IRENA Sodium Chloride (Nss) 1,000 mls @ 150 mls/hr IV .Q6H40M RILEY Stop: 06/02/23 04:14 Last Admin: 06/01/23 19:23 Dose: Not Given Documented By: IRENA Methylprednisolone (Methylprednisolone 125 Mg/2 Ml Vial) 125 mg IV NOW STA Stop: 06/01/23 16:09 Last Admin: 06/01/23 16:34 Dose: 125 mg Documented By: BINA Miscellaneous (Stat Iv/Im) 1 each N/A NOW STA Stop: 06/01/23 16:17 Last Admin: 06/01/23 17:34 Dose: Not Given Documented By: BINA Naloxone HCl (Naloxone Hcl Inj 1 Mg/Ml 2ml Syr) 2 mg INTNAS NOW ONE Stop: 06/01/23 16:16 Last Admin: 06/01/23 16:05 Dose: 2 mg Documented By: IRENA Ondansetron HCl (Ondansetron Inj 2 Mg/Ml 2 Ml Vial) Confirm Administered Dose 4 mg .ROUTE .STK-MED ONE Stop: 06/01/23 16:06 Last Admin: 06/01/23 16:16 Dose: Not Given Documented By: IRENA Ondansetron HCl (Ondansetron Inj 2 Mg/Ml 2 Ml Vial) 4 mg IV NOW STA Stop: 06/01/23 16:06 Last Admin: 06/01/23 16:15 Dose: 4 mg Documented By: IRENA Oseltamivir Phosphate (Oseltamivir Phosphate Susp 30 Mg/5 Ml Udp) 30 mg PO NOW ONE Stop: 06/01/23 17:31 Last Admin: 06/01/23 17:36 Dose: 30 mg Documented By: MINERVA Sodium Zirconium Cyclosilicate (Sodium Zirconium Cyclosilicate 10 Gm Packet) 10 gm PO ONE ONE Stop: 06/01/23 18:55 Last Admin: 06/01/23 19:23 Dose: Not Given Documented By: IRENA Critical Care Time Critical Care Time: Yes Total Critical Care Time: 77 I have personally spent greater than 77 minutes of critical care time in the direct management of this patient. This includes bedside care, interpretation of diagnostic studies, and testing, discussion with consultants, patient, and family members, and other required patient management activities. This 77 minutes is in excess of all separately billable procedures. Medical Decision Making Laboratory Data Attestation: I reviewed the patient's lab results. 06/01/23 15:30 06/01/23 18:08 Lab Results 06/01/23 06/01/23 06/01/23 Range/Units 15:27 15:30 15:33 WBC 10.39 (4.8-10.8) K/ul RBC 5.32 (4.20-5.40) M/uL Hgb 15.3 (12.0-16.0) g/dl POC Hgb (12.0-16.0) g/dl Hct 46.8 (37.0-47.0) % POC Hct (37-47) % MCV 88.0 (80.0-100.0) fL MCH 28.8 (25.0-34.0) pg MCHC 32.7 (32.0-36.0) g/dL RDW Std Deviation 45.3 (36.4-46.3) fL RDW Coeff of Claudette 14.1 (11.5-14.5) % Plt Count 223 (130-400) K/uL MPV 11.1 (9.4-12.4) fL Immature Gran % (Auto) 0.6 % Neut % (Auto) 84.8 % Lymph % (Auto) 7.4 % Barnes % (Auto) 6.5 % Eos % (Auto) 0.1 % Baso % (Auto) 0.6 % Neut # (Auto) 8.81 H (1.40-6.50) K/uL Lymph # (Auto) 0.77 L (1.20-3.40) K/uL Barnes # (Auto) 0.68 H (0.11-0.59) K/uL Eos # (Auto) 0.01 (0.00-0.50) K/uL Baso # (Auto) 0.06 (0.00-0.20) K/uL Immature Gran # (Auto) 0.06 (0.01-0.20) K/uL PT 10.2 (9.0-12.0) Seconds INR 0.9 (0.9-1.1) APTT 25 (21-31) Seconds PTT Ratio 0.9 VBG pH (7.36-7.41) VBG pCO2 (38-50) mmHg VBG pO2 mmHg VBG HCO3 mmol/L VBG O2 Saturation % VBG Base Excess mEq/L POC Sodium (135-144) mmol/L Sodium 128 L (136-145) mmol/L POC Potassium (3.3-5.0) mmol/L Potassium 6.3 H* (3.5-5.1) mmol/L POC Chloride (101-112) mmol/L Chloride 88 L (98-107) mmol/L Carbon Dioxide 31 (21-32) mmol/L POC Total CO2 (24-31) mmol/L Anion Gap 9 (3-11) POC Anion Gap (16-25) mmol/L POC BUN (7-18) mg/dl BUN 41 H (6-23) mg/dl Creatinine 3.90 H (0.6-1.2) mg/dl POC Creatinine (0.6-1.3) mg/dl Est Cr Clr Drug Dosing 9.1 ml/min Est GFR ( Amer) 13.6 ml/min Est GFR (Non-Af Amer) 11.7 ml/min BUN/Creatinine Ratio 10.5 (10-20) Glucose 64 L (70-99(Fasting)) mg/dl POC Glucose (70-99) mg/dl POC Glucose (other) (70-99) mg/dl Lactate 2.2 H* (0.4-2.0) mmol/L Calcium 9.4 (8.6-10.3) mg/dl POC Ioniz Calcium Dragan (1.12-1.32) mmol/l Magnesium 3.1 H (1.7-2.4) mg/dl Total Bilirubin 0.4 (0.2-1.0) mg/dl Direct Bilirubin TNP AST 109 H (13-39) U/L ALT 75 H (7-52) U/L Alkaline Phosphatase 124 H (34-104) U/L Troponin I High Sens 91.8 H* (0-14) pg/ml B-Natriuretic Peptide 1482 H (0-100) pg/ml Total Protein 7.3 (6.0-8.3) gm/dl Albumin 4.1 (3.4-5.0) gm/dl Procalcitonin 1.05 H (0-0.5) ng/ml Nasal Influ A H1 2008 PCR DETECTED A* (NotDetected) Adenovirus (PCR) Not Detected (NotDetected) B. pertussis DNA (PCR) Not Detected (NotDetected) B.parapertussis DNA PCR Not Detected (NotDetected) Lyme Disease IgG Ab Negative (Negative) Lyme Disease IgM Ab Negative (Negative) C. pneumoniae DNA (PCR) Not Detected (NotDetected) Coronavirus OC43 (PCR) Not Detected (NotDetected) Coronavirus HKU1 (PCR) Not Detected (NotDetected) Coronavirus 229E (PCR) Not Detected (NotDetected) SARS-CoV-2 (PCR) Not Detected (NotDetected) Coronavirus NL63 (PCR) Not Detected (NotDetected) Human Metapneumovir PCR Not Detected (NotDetected) Influenza Type B (PCR) Not Detected (NotDetected) M. pneumoniae (PCR) Not Detected (NotDetected) Parainfluenza 1 (PCR) Not Detected (NotDetected) Parainfluenza 2 (PCR) Not Detected (NotDetected) Parainfluenza 3 (PCR) Not Detected (NotDetected) Parainfluenza 4 (PCR) Not Detected (NotDetected) RSV (PCR) Not Detected (NotDetected) Entero/Rhino (PCR) Not Detected (NotDetected) 06/01/23 06/01/23 06/01/23 Range/Units 15:58 16:00 16:12 WBC (4.8-10.8) K/ul RBC (4.20-5.40) M/uL Hgb (12.0-16.0) g/dl POC Hgb 14.6 (12.0-16.0) g/dl Hct (37.0-47.0) % POC Hct 43 (37-47) % MCV (80.0-100.0) fL MCH (25.0-34.0) pg MCHC (32.0-36.0) g/dL RDW Std Deviation (36.4-46.3) fL RDW Coeff of Claudette (11.5-14.5) % Plt Count (130-400) K/uL MPV (9.4-12.4) fL Immature Gran % (Auto) % Neut % (Auto) % Lymph % (Auto) % Barnes % (Auto) % Eos % (Auto) % Baso % (Auto) % Neut # (Auto) (1.40-6.50) K/uL Lymph # (Auto) (1.20-3.40) K/uL Barnes # (Auto) (0.11-0.59) K/uL Eos # (Auto) (0.00-0.50) K/uL Baso # (Auto) (0.00-0.20) K/uL Immature Gran # (Auto) (0.01-0.20) K/uL PT (9.0-12.0) Seconds INR (0.9-1.1) APTT (21-31) Seconds PTT Ratio VBG pH 7.39 (7.36-7.41) VBG pCO2 58 H (38-50) mmHg VBG pO2 21 mmHg VBG HCO3 35 mmol/L VBG O2 Saturation < 60.0 % VBG Base Excess 8.0 mEq/L POC Sodium 126 L (135-144) mmol/L Sodium (136-145) mmol/L POC Potassium 5.8 H (3.3-5.0) mmol/L Potassium (3.5-5.1) mmol/L POC Chloride 86 L (101-112) mmol/L Chloride (98-107) mmol/L Carbon Dioxide (21-32) mmol/L POC Total CO2 33 H (24-31) mmol/L Anion Gap (3-11) POC Anion Gap 14.0 L (16-25) mmol/L POC BUN 45 H (7-18) mg/dl BUN (6-23) mg/dl Creatinine (0.6-1.2) mg/dl POC Creatinine 4.5 H (0.6-1.3) mg/dl Est Cr Clr Drug Dosing ml/min Est GFR ( Amer) ml/min Est GFR (Non-Af Amer) ml/min BUN/Creatinine Ratio (10-20) Glucose (70-99(Fasting)) mg/dl POC Glucose 60 L* (70-99) mg/dl POC Glucose (other) 222 H (70-99) mg/dl Lactate (0.4-2.0) mmol/L Calcium (8.6-10.3) mg/dl POC Ioniz Calcium Dragan 1.00 L (1.12-1.32) mmol/l Magnesium (1.7-2.4) mg/dl Total Bilirubin (0.2-1.0) mg/dl Direct Bilirubin AST (13-39) U/L ALT (7-52) U/L Alkaline Phosphatase (34-104) U/L Troponin I High Sens (0-14) pg/ml B-Natriuretic Peptide (0-100) pg/ml Total Protein (6.0-8.3) gm/dl Albumin (3.4-5.0) gm/dl Procalcitonin (0-0.5) ng/ml Nasal Influ A H1 2008 PCR (NotDetected) Adenovirus (PCR) (NotDetected) B. pertussis DNA (PCR) (NotDetected) B.parapertussis DNA PCR (NotDetected) Lyme Disease IgG Ab (Negative) Lyme Disease IgM Ab (Negative) C. pneumoniae DNA (PCR) (NotDetected) Coronavirus OC43 (PCR) (NotDetected) Coronavirus HKU1 (PCR) (NotDetected) Coronavirus 229E (PCR) (NotDetected) SARS-CoV-2 (PCR) (NotDetected) Coronavirus NL63 (PCR) (NotDetected) Human Metapneumovir PCR (NotDetected) Influenza Type B (PCR) (NotDetected) M. pneumoniae (PCR) (NotDetected) Parainfluenza 1 (PCR) (NotDetected) Parainfluenza 2 (PCR) (NotDetected) Parainfluenza 3 (PCR) (NotDetected) Parainfluenza 4 (PCR) (NotDetected) RSV (PCR) (NotDetected) Entero/Rhino (PCR) (NotDetected) 06/01/23 06/01/23 Range/Units 17:11 18:08 WBC (4.8-10.8) K/ul RBC (4.20-5.40) M/uL Hgb (12.0-16.0) g/dl POC Hgb (12.0-16.0) g/dl Hct (37.0-47.0) % POC Hct (37-47) % MCV (80.0-100.0) fL MCH (25.0-34.0) pg MCHC (32.0-36.0) g/dL RDW Std Deviation (36.4-46.3) fL RDW Coeff of Claudette (11.5-14.5) % Plt Count (130-400) K/uL MPV (9.4-12.4) fL Immature Gran % (Auto) % Neut % (Auto) % Lymph % (Auto) % Barnes % (Auto) % Eos % (Auto) % Baso % (Auto) % Neut # (Auto) (1.40-6.50) K/uL Lymph # (Auto) (1.20-3.40) K/uL Barnes # (Auto) (0.11-0.59) K/uL Eos # (Auto) (0.00-0.50) K/uL Baso # (Auto) (0.00-0.20) K/uL Immature Gran # (Auto) (0.01-0.20) K/uL PT (9.0-12.0) Seconds INR (0.9-1.1) APTT (21-31) Seconds PTT Ratio VBG pH (7.36-7.41) VBG pCO2 (38-50) mmHg VBG pO2 mmHg VBG HCO3 mmol/L VBG O2 Saturation % VBG Base Excess mEq/L POC Sodium (135-144) mmol/L Sodium 131 L (136-145) mmol/L POC Potassium (3.3-5.0) mmol/L Potassium 4.1 D (3.5-5.1) mmol/L POC Chloride (101-112) mmol/L Chloride 94 L (98-107) mmol/L Carbon Dioxide 24 (21-32) mmol/L POC Total CO2 (24-31) mmol/L Anion Gap 13 H (3-11) POC Anion Gap (16-25) mmol/L POC BUN (7-18) mg/dl BUN 41 H (6-23) mg/dl Creatinine 3.41 H D (0.6-1.2) mg/dl POC Creatinine (0.6-1.3) mg/dl Est Cr Clr Drug Dosing 10.4 ml/min Est GFR ( Amer) 16.0 ml/min Est GFR (Non-Af Amer) 13.8 ml/min BUN/Creatinine Ratio 12.0 (10-20) Glucose 191 H (70-99(Fasting)) mg/dl POC Glucose 198 H (70-99) mg/dl POC Glucose (other) (70-99) mg/dl Lactate 4.9 H* (0.4-2.0) mmol/L Calcium 8.2 L (8.6-10.3) mg/dl POC Ioniz Calcium Dragan (1.12-1.32) mmol/l Magnesium (1.7-2.4) mg/dl Total Bilirubin (0.2-1.0) mg/dl Direct Bilirubin 0.0 AST (13-39) U/L ALT (7-52) U/L Alkaline Phosphatase (34-104) U/L Troponin I High Sens 66.3 H* D (0-14) pg/ml B-Natriuretic Peptide (0-100) pg/ml Total Protein (6.0-8.3) gm/dl Albumin (3.4-5.0) gm/dl Procalcitonin (0-0.5) ng/ml Nasal Influ A H1 2008 PCR (NotDetected) Adenovirus (PCR) (NotDetected) B. pertussis DNA (PCR) (NotDetected) B.parapertussis DNA PCR (NotDetected) Lyme Disease IgG Ab (Negative) Lyme Disease IgM Ab (Negative) C. pneumoniae DNA (PCR) (NotDetected) Coronavirus OC43 (PCR) (NotDetected) Coronavirus HKU1 (PCR) (NotDetected) Coronavirus 229E (PCR) (NotDetected) SARS-CoV-2 (PCR) (NotDetected) Coronavirus NL63 (PCR) (NotDetected) Human Metapneumovir PCR (NotDetected) Influenza Type B (PCR) (NotDetected) M. pneumoniae (PCR) (NotDetected) Parainfluenza 1 (PCR) (NotDetected) Parainfluenza 2 (PCR) (NotDetected) Parainfluenza 3 (PCR) (NotDetected) Parainfluenza 4 (PCR) (NotDetected) RSV (PCR) (NotDetected) Entero/Rhino (PCR) (NotDetected) Imaging Data Attestation: I personally reviewed and interpreted this imaging study as follows: My Impression: Chest x-ray: Airway clear. No pneumothorax. No consolidation. No cardiomegaly or cephalization. Emphysematous changes. No free air under the diaphragm. No fractures of the skeletal structures. Radiologist's Impression: Chest X-Ray 06/01/23 15:49 XR chest 1V portable HISTORY: Sepsis COMPARISON: Chest 02/08/2023. FINDINGS: No pneumothorax. No pleural effusions. The heart is normal in size. There are poststernotomy changes. Mild emphysema is suggested. There is mild diffuse interstitial thickening. This has improved and suggest mild congestive change. No new focal lung consolidations to suggest pneumonia. There are suture material within the right midlung zone. No acute fractures. IMPRESSION: Mild congestive change which has improved in the interval. ACT 112: Negative or not required by law. Electronically signed by: Amandeep Urrutia M.D. 06/01/2023 4:[address] 06/01/23 16:00 CT SCAN OF THE CERVICAL SPINE CLINICAL HISTORY: Change in mental status. COMPARISON STUDY: CT angiogram of the neck dated 12/18/2018 and 04/19/2013. TECHNIQUE: CT scan of the cervical spine is performed from the skull base to the upper thoracic spine. Images are reviewed in the axial, sagittal, and coronal planes. IV contrast was not administered for this examination. A dose lowering technique was utilized adhering to the principles of ALARA. CT DOSE: 1248.74 mGy.cm FINDINGS: Skeletal structures: The skeletal structures are osteopenic. There is no evidence of fracture or subluxation involving the cervical spine. Vertebral body height and alignment are maintained. Tiny anterior osteophytes are seen throughout. The odontoid process and lateral masses are intact. The atlantoaxial articulation is preserved nothing productive degenerative changes. The spinous processes appear intact. There is mild multilevel facet arthropathy. Numerous tiny lucencies are again seen throughout the skeletal structures. These are unchanged dating back to 2013 and abdominal significance. Intervertebral discs: There is minimal degenerative disc space narrowing. Central canal: Posterior disc osteophyte complexes at C3-C4, C4-C5, and C5-C6 may contribute to mild acquired compromise of the central canal. Soft tissues: The prevertebral and paraspinous soft tissues are within normal limits. The thyroid gland is heterogeneous and contains coarse calcifications. There is atherosclerotic calcification of the carotid bulbs. Calvarium: The visualized calvarium at the skull base appears intact. Brain parenchyma: Partially visualized brain parenchyma at the skull base is within normal limits. Sinuses and mastoids: The visualized paranasal sinuses are clear. The mastoid air cells are well pneumatized. Lung apices: Advanced symptoms in this change is noted. Upper lobe lung parenchyma is otherwise clear as imaged. IMPRESSION: 1. There is no evidence of fracture or subluxation involving the cervical spine. 2. Osteopenia and degenerative change as above. 3. Emphysema. ACT 112: Negative or not required by law. Electronically signed by: Mack Perez M.D. 06/01/2023 4:[address] 06/01/23 16:[address] DOSE: HISTORY: Altered mental status. TECHNIQUE: Multiaxial CT images of the head were performed without the use of intravenous contrast. Automated exposure control was utilized for this study. A dose lowering technique was utilized adhering to the principles of ALARA. Comparison: Head CT 03/28/2020. Findings: The paranasal sinuses and mastoid air cells are clear. The calvarium and skull base are intact. There is no mass, hematoma, midline shift, acute infarct. White matter hypodensity is nonspecific but suggestive of microvascular ischemic change. The ventricles and sulci demonstrate mild age-related involutional changes. There is an old lacunar infarct again noted within the right basal ganglia. Impression: No significant change compared to the prior study. No acute intracranial abnormality. ACT 112: Negative or not required by law. Electronically signed by: Amandeep Urrutia M.D. 06/01/2023 4:47 PM ECG Data Additional Comments: EKG #1 at 1518: Sinus rhythm with a rate of 68. FL 208 QRS [address] elevation or ST depression. Deep T wave inversion in leads III, aVF, V3, V4 V5. PVCs present. EKG #2 at 1556: Sinus rhythm with rate of 67. FL 212 QRS [address] elevation or ST depression. Persistent deep T wave inversion in leads III, aVF, V2, V3 V4. [facility] Narrative 1602: The patient was evaluated in room B3. A complete history and physical exam was performed Cardiac monitoring: An order was placed for continuous cardiac monitoring. The monitor shows a rate of 70 with sinus rhythm interpreted by me Called to bedside by nursing patient was found to be having altered mental status, hypoxic and hypotensive. Supplemental oxygen was applied which improved the patient's oxygen saturation. Patient was still having altered mental status. Accu-Chek was conducted and showed the patient had glucose of 61. 1 amp of D50 given to the patient. No significant response. 2 mg of Narcan was given to the patient and the patient became more alert and started conversing clearly with us. Patient has diminished breath sounds bilaterally. DuoNeb and steroids ordered for the patient as patient has a history of COPD. Sepsis protocols were initiated. Patient does have a history of CHF. Normal saline 500 cc bolus given to the patient. Patient's EKG shows deeply inverted T waves. Will conduct i-STAT to make sure that there is now electrolyte abnormality. 1616: [id number] i-STAT shows that the patient is hyperkalemic and has an BRITTNEY. Calcium gluconate ordered for the patient. 1700: Patient's lungs showed improved aeration with better air movement. Patient's potassium is 6.3. Patient be treated with additional albuterol treatments to lower the patient's potassium as well as to improve the patient's oxygenation, aeration, and respiratory status. Patient's sodium 128 creatinine 3.9 BUN 41. Patient's initial lactic acid 2.2. Additional 1 L of fluid ordered for the patient for total of 30 cc/kg normal saline bolus. Broad-spectrum antibiotics will be ordered for the patient cefepime and vancomycin. VBG shows a venous pH of 7.39 venous pCO2 of 58 bicarb 35. 1740: Patient's oxygen saturations improved with supplemental oxygen. Patient is positive for influenza. Tamiflu ordered for the patient. Patient will be [facility] to the [facility] Impression & Plan Hypoxia, Sepsis, COPD (chronic obstructive pulmonary disease), Acute hyperkalemia, Hypoglycemia, Opiate abuse, continuous Discharge Plan Visit Data Chief Complaint: Illness ED Provider: Ishaan Nelson Discharge Problem: Hypoxia, Sepsis, COPD (chronic obstructive pulmonary disease), Acute hyperkalemia, Hypoglycemia, Opiate abuse, continuous Patient Disposition: Admitted As Inpatient Forms Stand Alone Forms: My [facility] Prescriptions Prescriptions: No Action (DME) nebulizers Mis See Rx Instructions .Route Qty: 1 0RF Rx Instructions: Use with albuterol and saline nebulizer solution as directed (DME) nebulizer accessories Misc See Rx Instructions .Route Qty: 5 3RF Rx Instructions: TUBING AND ADULT [employer]MINISTRATION DEVICE/MASK atorvastatin 40 mg tablet 40 mg PO QPM Qty: 90 3RF cholecalciferol (vitamin D3) [Vitamin D3] 50 mcg (2,000 unit) tablet 4,000 unit PO QAM Qty: 90 3RF clopidogrel 75 mg tablet 75 mg PO QPM Qty: 90 3RF cyanocobalamin (vitamin B-12) 1,000 mcg tablet 1,000 mcg PO QAM Qty: 90 3RF folic acid 1 mg tablet 1 mg PO QAM Qty: 90 3RF furosemide [Lasix] 20 mg tablet 20 mg PO QAM Qty: 90 3RF lisinopril 2.5 mg tablet 2.5 mg PO QAM Qty: 90 3RF metoprolol succinate 25 mg tablet extended release 24 hr 12.5 mg PO DAILY Qty: 45 3RF montelukast 10 mg tablet 10 mg PO QAM Qty: 90 3RF pantoprazole 40 mg tablet,delayed release (DR/EC) 40 mg PO DAILY Qty: 90 3RF (DME) Wheelosito Walker Misc See Rx Instructions .Route Qty: 1 0RF Rx Instructions: As directed amiodarone 200 mg tablet 200 mg PO QAM Qty: 90 3RF spironolactone 25 mg tablet 25 mg PO QAM Qty: 90 3RF Trelegy Ellipta 200-62.5-25 mcg blister with device 1 inh inhalation DAILY Qty: 60 5RF sodium chloride 7 % solution for nebulization 4 ml NEB BIDR Qty: 240 0RF magnesium oxide [MagOx] 400 mg (241.3 mg magnesium) tablet 400 mg PO BID Qty: 180 3RF ipratropium-albuterol 0.5 mg-3 mg(2.5 mg base)/3 mL solution for nebulization 3 ml NEB QID PRN (Reason: shortness of breath or wheezing) Referrals Referrals: Barrington Joshi MD [Primary Care Provider] - Discharge Problem: Sepsis Qualifiers: Sepsis type: sepsis due to unspecified organism Sepsis acute organ dysfunction status: with acute organ dysfunction Severe sepsis acute organ dysfunction type: acute renal failure Acute renal failure type: unspecified Severe sepsis shock status: unspecified Qualified Code(s): A41.9 - Sepsis, unspecified organism; R65.20 - Severe sepsis without septic shock; N17.9 - Acute kidney failure, unspecified
[2023-06-01] MEDS ORDERED: ALBUT/IPRATROP 3MG/0.5MG NEB 3 ML VIAL NEB PRN (21:19)
--- NOTE | 2023-06-01 21:27 | Ultrasound Report ---
Exam(s): US RENAL EXAM: US Retroperitoneal Limited, Renal CLINICAL HISTORY: Reason for exam: daylin. TECHNIQUE: Real-time limited ultrasound of the retroperitoneum with image documentation. COMPARISON: No relevant prior studies available. FINDINGS: Right kidney: Unremarkable. No stones. No solid mass. No hydronephrosis. Left kidney: Unremarkable. No stones. No solid mass. No hydronephrosis. Bladder: Minimal debris in the urinary bladder. Correlate for UTI. LEFT ureteral jet identified. IMPRESSION: Minimal debris in the urinary bladder. Correlate for UTI. Electronically signed by: Nicholas Cabrera MD 06/01/23 21:26 PM
[2023-06-01] MEDS: SODIUM CHLOR 7% 4 ML NEB NEB SCH (22:10)
[2023-06-01] MEDS: HEPARIN SOD 5,000 UNIT/0.5 ML VIAL SQ SCH (22:13)
[2023-06-01] MEDS: MAGNESIUM OXIDE 400 MG TAB PO SCH (22:13)
[2023-06-01] MEDS: guaiFENesin 600 MG TABCR PO SCH (22:13)
[2023-06-01] MEDS: CLOPIDOGREL BISULFATE 75 MG TAB PO SCH (22:13)
[2023-06-01] MEDS: ATORVASTATIN 40 MG TAB PO SCH (22:13)
[2023-06-01 22:57] LABS: Appearance Urine Clear (Clear); Bacteria Urine Automated Negative (Negative); Bilirubin Urine Negative (Negative); Blood Urine Negative (Negative); Color Urine Yellow; Glucose Urine UA 1+ (Negative); Ketones Urine Trace (Negative); Leukocyte Esterase Urine Negative (Negative); Nitrite Urine Negative (Negative); Protein Urine 1+ (Negative); RBC Urine Automated 0-4 /hpf (0-4); Urobilinogen Urine Negative (Negative)
[2023-06-01 23:29] LABS: BUN Creatinine Ratio 13.1 (10-20); Calcium 7.9 mg/dl (8.6-10.3); Creatinine Clr Calc Pharmacy 11.7 ml/min; Est GFR (African American) 20.1 ml/min; Est GFR (Non-African American) 17.3 ml/min; Potassium 4.4 mmol/L (3.5-5.1)
[2023-06-02] MEDS: PIPERACILLIN/TAZOBACTAM 4.5 GM in DEXTROSE 5% MINI-B 100 ML IV SCH ×2 (00:30→14:08)
[2023-06-02 02:21] LABS: BUN Creatinine Ratio 14.5 (10-20); Calcium 8.1 mg/dl (8.6-10.3); Creatinine Clr Calc Pharmacy 12.9 ml/min; Est GFR (African American) 22.7 ml/min; Est GFR (Non-African American) 19.6 ml/min; Potassium 4.5 mmol/L (3.5-5.1)
[2023-06-02] MEDS: D5W AND NSS 1,000 ML IV SCH ×2 (04:16→14:15)
[2023-06-02] MEDS: SODIUM CHLOR 7% 4 ML NEB NEB SCH ×2 (07:35→18:44)
[2023-06-02] MEDS ORDERED: NON-FORMULARY MEDICATION (Fluticasone-Umeclidin-Vilanter [Trelegy Ellipta] 200-62.5-25 mcg INH SCH (09:00)
[2023-06-02] MEDS: AMIODARONE 200 MG TAB PO SCH (09:14)
[2023-06-02] MEDS: DULoxetine HCL 30 MG CAP PO SCH (09:15)
[2023-06-02] MEDS: FLUTICASONE FUROATE 200MCG 14 PUFFS/INHALER INH SCH (09:21)
[2023-06-02] MEDS: FOLIC ACID 1 MG TAB PO SCH (09:22)
[2023-06-02] MEDS: HEPARIN SOD 5,000 UNIT/0.5 ML VIAL SQ SCH ×2 (09:22→20:56)
[2023-06-02] MEDS: guaiFENesin 600 MG TABCR PO SCH ×2 (09:22→20:56)
[2023-06-02] MEDS: MAGNESIUM OXIDE 400 MG TAB PO SCH ×2 (09:23→20:55)
[2023-06-02] MEDS: METOPROLOL SUCC 25MG EXT REL TAB PO SCH (09:23)
[2023-06-02] MEDS: MONTELUKAST SODIUM 10 MG TABLET PO SCH (09:23)
[2023-06-02] MEDS: PANTOprazole 40 MG TAB PO SCH (09:24)
[2023-06-02] MEDS: UMECLIDINIUM/VILANTEROL 62.5/25MCG 7 PUFFS/INHALER INH SCH (09:25)
[2023-06-02] MEDS: methylPREDNISolone 40 MG in SYRINGE 0 ML IV SCH ×2 (10:25→21:09)
[2023-06-02] MEDS: OSELTAMIVIR PHOSPHATE SUSP 30 MG/5 ML UDP PO SCH (10:26)
--- NOTE | 2023-06-02 10:30 | Hospitalist Progress Note ---
Date of Service June 02, 2023 Assessment & Plan (1) Sepsis: Plan: Sepsis, influenza +/- superimposed secondary pneumonia Flu positive on bio fire MRSA nares negative - Unasyn, doxycycline Solumedrol 40mg BID CThead without acute findings Chest x-ray: Mild diffuse interstitial thickening and suspected mild congestive change without pleural effusions or acute lobar pneumonia noted - Continue gentle IVF - Bladder scan and straight cath >500mL (2) Flu: Plan: as noted. Continue tamiflu. (3) BRITTNEY (acute kidney injury): Plan: Prerenal, received fluid repletion as noted. Potassium normalized, creatinine being to downtrend on recheck Held lisinopril/Mccall Renally dose medications BMP daily (4) Hyperkalemia: Plan: Hyperkalemia Suspect with BRITTNEY, severe volume contraction and sepsis Received 1500 cc of saline, calcium gluconate, albuterol while in the ER Urine output starting to improve potassium subsequently normalized (5) COPD (chronic obstructive pulmonary disease): Plan: COPD Former tobacco use, on baseline 2 L nasal cannula Continue home Trelegy, pulmonary toilet - Duonebs - Continue solumedrol as above (6) Paroxysmal atrial fibrillation: Plan: Heart failure preserved ejection fraction, history of A-fib, bioprosthetic mitral valve, Last echo 2022 EF 55 to 60%, bioprosthetic mitral valve present Patient with BNP elevation of up to 1400 in the past without acute CHF. On admit 1482. Continue metoprolol, spironolactone, Lasix Continued on amiodarone Patient has recurrently declined anticoagulation/Coumadin as an outpatient and is maintained on amiodarone. Anticoagulation is deferred. Remains in sinus on admission. Due to new first-degree block and transaminitis Lyme/Anaplasma testing has been (7) Elevated troponin I level: Plan: Patient denies chest pain on admission. Suspect demand ischemia. downtrending on recheck. EKG w/ T wave inversions but no ST changes. (8) S/P mitral valve replacement with bioprosthetic valve: Plan DVT prophylaxis: Heparin twice daily CODE STATUS: Full Code Diet: Regular Disposition: PCU Admission and Anticipated Discharge Date Admission Date: June 01, 2023 Supervising Physician Co-Signing Physician Notes I personally examined the patient and verified all velasquez points of history and exam, discussed case, and agree with decision making with Dr Larois breathing feeling better. only new complaint is that she hurts all over, notes that she takes oxycodone for restless legs (relates failing other treatments and does not recall iron studies being checked) and would like home oxycodone ordered. 2L O2 at home. vitals noted thin and frail lungs diminished throughout but no adventitious sounds on 2L no conversational dyspnea no accessory muscle use. COPD exac due to influenza, sepsis and metabolic encephalopathy present on admission - doing better, continue steroids and tamiflu, adjust abx to doxy/unasyn, continue supportive care ARF - improving, fluids, time DVT proph - heparin SQ Subjective No acute events overnight. Patient seen and evaluated at bedside this morning. Feels breathing is improving slightly. Denies fevers, chills, CP, SOB, N/V/D. Not urinating on her own, which is not her baseline. Has FAJARDO, myalgias. Attributes LE myalgias to her restless leg which apparently has been worked up extensively in the past and managed with oxycodone 5mg q6h PRN. Review of Systems Review of Systems: reviewed, per HPI Physical Exam Physical Exam: Constitutional: NAD, appears frail HEENT: NCAT, no conjunctival injection CV: regular rhythm, no murmur appreciated, extremities well-perfused, no LE edema Resp: Poor air movement bilaterally. No appreciable wheeze. GI: soft, nondistended, nontender, BS normoactive MSK: no gross deformities appreciated Skin: warm, dry, no rash appreciated Neuro: alert, oriented, no focal neurologic deficit appreciated Results & Data Results & Data Vital Signs (Past 12 Hours) Vital Signs Temp Pulse Pulse Resp BP Pulse Ox O2 Del Method 06/02/23 08:20 36.5 C 66 16 124/60 91 Nasal Cannula 06/02/23 04:11 36.8 C 69 17 108/59 L 99 Nasal Cannula 06/02/23 01:01 65 06/01/23 23:44 36.9 C 71 16 118/60 99 Nasal Cannula O2 Flow Rate 06/02/23 08:20 2 06/02/23 04:11 2 06/02/23 01:01 06/01/23 23:44 2
[2023-06-02] MEDS: ACETAMINOPHEN 325 MG TAB PO PRN (14:08)
[2023-06-02] MEDS ORDERED: AMPICILLIN SOD/SULBACTAM SOD 3 GM VIAL IV SCH (14:30)
[2023-06-02] MEDS ORDERED: AZITHROMYCIN 250 MG TAB PO SCH (14:30)
[2023-06-02] MEDS ORDERED: UNASYN 3000MG / NS q6h IV SCH (15:00)
[2023-06-02] MEDS: oxyCODONE HCL IR 5 MG TAB (IMMEDIATE RELEASE) PO PRN (15:54)
[2023-06-02] MEDS: DOXYCYCLINE HYCLATE 100 MG CAP PO SCH ×2 (15:56→20:57)
--- NOTE | 2023-06-02 16:20 | Billing Data ---
Date of Service June 02, 2023 Coding Level of Care Code 87979 SUB INP/OBS CARE
[2023-06-02] MEDS: ATORVASTATIN 40 MG TAB PO SCH (20:55)
[2023-06-02] MEDS: CLOPIDOGREL BISULFATE 75 MG TAB PO SCH (20:56)
[2023-06-03] MEDS: oxyCODONE HCL IR 5 MG TAB (IMMEDIATE RELEASE) PO PRN ×4 (00:18→18:31)
[2023-06-03] MEDS: ACETAMINOPHEN 325 MG TAB PO PRN ×2 (00:18→10:17)
[2023-06-03] MEDS: D5W AND NSS 1,000 ML IV SCH ×3 (00:21→19:26)
--- NOTE | 2023-06-03 06:26 | Electrocardiogram Report ---
Test Reason : Blood Pressure : / mmHG Vent. Rate : 068 BPM Atrial Rate : 068 BPM P-R Int : 208 ms QRS Dur : 102 ms QT Int : 612 ms P-R-T Axes : 076 096 -58 degrees QTc Int : 650 ms Sinus rhythm Possible Left atrial enlargement Rightward axis Prolonged QT Abnormal ECG When compared with ECG of 07-FEB-2023 10:36, QT has lengthened T wave inversion now evident in Inferior leads T wave inversion now evident in Anterior leads Confirmed by Baldomero Castro ([id number]) on 06/03/2023 6:26:13 AM Referred By: REFERRED SELF Confirmed By:Baldomero Castro
--- NOTE | 2023-06-03 06:28 | Electrocardiogram Report ---
Test Reason : Blood Pressure : / mmHG Vent. Rate : 067 BPM Atrial Rate : 067 BPM P-R Int : 212 ms QRS Dur : 098 ms QT Int : 632 ms P-R-T Axes : 070 078 -62 degrees QTc Int : 668 ms Sinus rhythm with 1st degree A-V block Possible Left atrial enlargement Minimal voltage criteria for LVH, may be normal variant Prolonged QT Abnormal ECG When compared with ECG of 01-Jun-2023 15:18, No significant change Confirmed by Baldomero Castro ([id number]) on 06/03/2023 6:28:21 AM Referred By: Confirmed By:Baldomero Castro
--- NOTE | 2023-06-03 07:14 | Hospitalist Progress Note ---
Date of Service June 03, 2023 Assessment & Plan (1) Sepsis: Plan: Sepsis, influenza +/- superimposed secondary pneumonia Flu positive on bio fire MRSA nares negative - Unasyn, doxycycline Solumedrol 40mg BID Chest x-ray: Mild diffuse interstitial thickening and suspected mild congestive change without pleural effusions or acute lobar pneumonia noted - Continue gentle IVF - Bladder scan and straight cath >500mL -D/C tomorrow (2) Flu: Plan: as noted. Continue tamiflu. (3) BRITTNEY (acute kidney injury): Plan: Prerenal, received fluid repletion as noted. Potassium normalized, creatinine being to downtrend on recheck Held lisinopril/Miguel A Renally dose medications BMP daily (4) Hyperkalemia: Plan: Hyperkalemia K: 5.6 - Suspect with BRITTNEY, severe volume contraction and sepsis Received 1500 cc of saline, calcium gluconate, albuterol while in the ER Urine output starting to improve potassium subsequently normalized - Monitor labs am (5) COPD (chronic obstructive pulmonary disease): Plan: COPD Former tobacco use, on baseline 2 L nasal cannula Continue home Trelegy, pulmonary toilet - Duonebs - Continue solumedrol as above (6) Paroxysmal atrial fibrillation: Plan: Heart failure preserved ejection fraction, history of A-fib, bioprosthetic mitral valve, Last echo 2022 EF 55 to 60%, bioprosthetic mitral valve present Patient with BNP elevation of up to 1400 in the past without acute CHF. On admit 1482. Continue metoprolol, spironolactone, Lasix Continued on amiodarone Patient has recurrently declined anticoagulation/Coumadin as an outpatient and is maintained on amiodarone. Remains in sinus on admission. Due to new first- degree block and transaminitis Lyme/Anaplasma testing has been (7) Elevated troponin I level: Plan: Patient denies chest pain on admission. Suspect demand ischemia. downtrending on recheck. EKG w/ T wave inversions but no ST changes. (8) S/P mitral valve replacement with bioprosthetic valve: Plan DVT prophylaxis: Heparin twice daily CODE STATUS: Full Code Diet: Regular Disposition: PCU Admission and Anticipated Discharge Date Admission Date: June 01, 2023 Supervising Physician Co-Signing Physician Notes I personally examined the patient and verified all velasquez points of history and exam, discussed case, and agree with decision making with Dr Andrea Serrano feeling better. oob without much sob. vitals noted thin and frail on NCO2 no conversational dyspnea no accessory muscle use. COPD exac due to influenza, sepsis and metabolic encephalopathy present on admission - doing better, continue steroids and tamiflu, continue current abx, hopefully home tomorrow ARF - improving, fluids, time. hyperkalemia - recheck later today DVT proph - heparin SQ Subjective No acute events overnight. Patient seen and evaluated at bedside this morning. Feels breathing is improving. Denies fevers, chills, CP, SOB, N/V/D. Refers not sleeping great last night Review of Systems Review of Systems: reviewed, per HPI Physical Exam Physical Exam: Constitutional: NAD, appears frail HEENT: NCAT, no conjunctival injection CV: regular rhythm, no murmur appreciated, extremities well-perfused, no LE edema Resp: Poor air movement bilaterally. No appreciable wheeze. GI: soft, nondistended, nontender, BS normoactive MSK: no gross deformities appreciated Skin: warm, dry, no rash appreciated Neuro: alert, oriented, no focal neurologic deficit appreciated Results & Data Results & Data Vital Signs (Past 12 Hours) Vital Signs Temp Pulse Pulse Resp BP Pulse Ox O2 Del Method 06/03/23 03:00 36.7 C 61 16 141/71 H 91 Nasal Cannula 06/03/23 01:18 66 06/02/23 23:53 36.5 C 58 L 16 165/66 H 97 Nasal Cannula 06/02/23 22:00 Nasal Cannula 06/02/23 19:32 36.6 C 68 16 156/66 H 96 Nasal Cannula O2 Flow Rate 06/03/23 03:00 2 06/03/23 01:18 06/02/23 23:53 2 06/02/23 22:00 2 06/02/23 19:32 2 Resident Activity Tracking Resident Involvement: Resident Care Provided Care Provided: Adult Hospital Medicine
[2023-06-03] MEDS: SODIUM CHLOR 7% 4 ML NEB NEB SCH ×2 (07:24→20:02)
[2023-06-03 08:06] LABS: Albumin Globulin Ratio 1.3 (0.9-2); Albumin Level 3.1 gm/dl (3.4-5.0); BUN Creatinine Ratio 17.4 (10-20); Bilirubin,Total 0.2 mg/dl (0.2-1.0); Calcium 7.7 mg/dl (8.6-10.3); Creatinine Clr Calc Pharmacy 30.4 ml/min; Est GFR (African American) 50.3 ml/min; Est GFR (Non-African American) 43.4 ml/min; Globulin 2.3 gm/dl (2.5-4.0); Potassium 5.6 mmol/L (3.5-5.1); Total Protein 5.4 gm/dl (6.0-8.3)
[2023-06-03 08:11] LABS: Troponin I High Sensitivity 20.1 pg/ml (0-14)
[2023-06-03 08:25] LABS: Ferritin 135.2 ng/ml (8-388)
[2023-06-03] MEDS: UMECLIDINIUM/VILANTEROL 62.5/25MCG 7 PUFFS/INHALER INH SCH (09:04)
[2023-06-03] MEDS: FLUTICASONE FUROATE 200MCG 14 PUFFS/INHALER INH SCH (09:04)
[2023-06-03] MEDS: DOXYCYCLINE HYCLATE 100 MG CAP PO SCH ×2 (09:05→22:33)
[2023-06-03] MEDS: FOLIC ACID 1 MG TAB PO SCH (09:05)
[2023-06-03] MEDS: DULoxetine HCL 30 MG CAP PO SCH (09:05)
[2023-06-03] MEDS: AMIODARONE 200 MG TAB PO SCH (09:05)
[2023-06-03] MEDS: HEPARIN SOD 5,000 UNIT/0.5 ML VIAL SQ SCH ×2 (09:06→22:34)
[2023-06-03] MEDS: guaiFENesin 600 MG TABCR PO SCH ×2 (09:06→22:33)
[2023-06-03] MEDS: METOPROLOL SUCC 25MG EXT REL TAB PO SCH (09:07)
[2023-06-03] MEDS: MONTELUKAST SODIUM 10 MG TABLET PO SCH (09:07)
[2023-06-03] MEDS: MAGNESIUM OXIDE 400 MG TAB PO SCH ×2 (09:07→22:33)
[2023-06-03] MEDS: PANTOprazole 40 MG TAB PO SCH (09:08)
[2023-06-03] MEDS: OSELTAMIVIR PHOSPHATE SUSP 30 MG/5 ML UDP PO SCH (09:08)
[2023-06-03] MEDS: methylPREDNISolone 40 MG in SYRINGE 0 ML IV SCH ×2 (09:16→22:34)
[2023-06-03] MEDS: UNASYN 3000MG / NS q6h IV SCH ×2 (12:03→18:30)
--- NOTE | 2023-06-03 15:10 | Billing Data ---
Date of Service June 03, 2023 Coding Level of Care Code 65596 SUB INP/OBS CARE
[2023-06-03] MEDS ORDERED: MELATONIN 3 MG TAB PO SCH (21:00)
[2023-06-03] MEDS: CLOPIDOGREL BISULFATE 75 MG TAB PO SCH (22:33)
[2023-06-03] MEDS: ATORVASTATIN 40 MG TAB PO SCH (22:33)
[2023-06-04] MEDS: UNASYN 3000MG / NS q6h IV SCH ×2 (00:10→05:22)
[2023-06-04] MEDS: ACETAMINOPHEN 325 MG TAB PO PRN (00:11)
[2023-06-04] MEDS: oxyCODONE HCL IR 5 MG TAB (IMMEDIATE RELEASE) PO PRN ×2 (00:12→06:30)
[2023-06-04] MEDS: D5W AND NSS 1,000 ML IV SCH (05:21)
[2023-06-04] MEDS: SODIUM CHLOR 7% 4 ML NEB NEB SCH (07:17)
[2023-06-04] MEDS ORDERED: LORazepam 0.5 MG TAB PO PRN (07:51)
[2023-06-04 08:04] LABS: Hematocrit (blood only) 38.7 % (37.0-47.0); Hemoglobin 12.2 g/dl (12.0-16.0); Mean Corpuscular Hemoglobin 28.7 pg (25.0-34.0); Mean Corpuscular Hgb Conc 31.5 g/dL (32.0-36.0); Mean Corpuscular Volume 91.1 fL (80.0-100.0); Mean Platelet Volume 10.8 fL (9.4-12.4); Platelet Count 166 K/uL (130-400); RDW Coefficient of Variation 14.6 % (11.5-14.5); RDW Standard Deviation 48.5 fL (36.4-46.3); Red Blood Count 4.25 M/uL (4.20-5.40); White Blood Count 15.38 K/ul (4.8-10.8)
[2023-06-04 08:16] LABS: BUN Creatinine Ratio 16.5 (10-20); Calcium 7.7 mg/dl (8.6-10.3); Creatinine Clr Calc Pharmacy 43.2 ml/min; Est GFR (African American) 72.5 ml/min; Est GFR (Non-African American) 62.6 ml/min; Potassium 4.7 mmol/L (3.5-5.1)
--- NOTE | 2023-06-04 08:33 | Discharge Summary ---
Date of Service June 04, 2023 Admission HPI Per Admitting Provider Jennifer is a 62-year-old female with a past medical history of long-term opiate use, paroxysmal atrial fibrillation, heart failure preserved ejection fraction, NSVT, paroxysmal SVT, CAD, mitral valve replacement with bioprosthetic valve, CVA, hypertension, hyperlipidemia and multifactorial dyspnea last discharged 02/10/2023 for acute respiratory failure suspected due to possible pneumonia +/- mucous plugging who presented to the ER sedated, severely volume contracted and ill-appearing. Patient initially poorly responsive with rapid improvement following intranasal Narcan and does have a history of opiate dependence and narcotic use. Following this she was found to be flu positive with additional concerns for sepsis. Jennifer reports that she has had almost no appetite for around 2 days and almost no urine output over that same period. She feels tired and dehydrated. She has had fluid overload in the past but does not feel this way currently. She has not had a cough, fever, or chills but has felt generally unwell and cold at night. She has no abdominal or flank pain. Denies recent narcotic and substance use. Denies alcohol tobacco use. She denies lightheadedness or dizziness. Initially was sedated without able to give conversation and improved following Narcan on ER assessment; at time of bedside assessment she is oriented to name, year, and hospital. Is not oriented to month and appears fatigued. She is awake and alert at second reassessment. She reports she did take her medications this morning as directed. She denies chest pain, chest pressure, shortness of breath, and cough. Denies dysuria but again notes that she has had almost no urine output for 2 days. Medical History: Reviewed Medications: Reviewed Surgical History: Reviewed Family history: Reviewed Allergies: Reviewed Social History:Reviewed Code Status: DNR/DNI Admission Exam Per Admitting Provider General: Oriented to name, place and year, not month. NAD. Cooperative. HEENT: Atraumatic, normocephalic. Vision intact. PERLAA, 3-4mm, no pinpoint pupils present. Pulm: CTAB A&P. -wheezes, -rales, -rhonchi. Symmetrical chest rise. No increased work of breathing. No respiratory distress. Cardiac: RRR, -mrg. Radial pulses intact and symmetrical. Abdominal: Nontender, nondistended, soft. BS present. Ext: warm, dry. Principal Diagnosis Influenza Pneumonia Discharge Exam Constitutional: NAD, appears frail HEENT: NCAT, no conjunctival injection CV: regular rhythm, no murmur appreciated, extremities well-perfused, no LE edema Resp: Poor air movement bilaterally. No appreciable wheeze. GI: soft, nondistended, nontender, BS normoactive MSK: no gross deformities appreciated Skin: warm, dry, no rash appreciated Neuro: alert, oriented, no focal neurologic deficit appreciated Discharge Data Allergies Allergy/AdvReac Type Severity Reaction Status Date / Time aspirin Allergy Intermediate Hives Verified 06/01/23 19:10 hydrochlorothiazide Allergy Intermediate RASH/"Sick Verified 06/01/23 19:10 in stomach" trazodone AdvReac Severe Vomiting Verified 06/01/23 19:10 tramadol AdvReac Mild Nausea Verified 04/07/23 14:30 Consultations 06/01/23 17:23 ED Decision to Admit Stat Ordered Studies Chest X-Ray 06/01/23 15:49 XR chest 1V portable HISTORY: Sepsis COMPARISON: Chest 02/08/2023. FINDINGS: No pneumothorax. No pleural effusions. The heart is normal in size. There are poststernotomy changes. Mild emphysema is suggested. There is mild diffuse interstitial thickening. This has improved and suggest mild congestive change. No new focal lung consolidations to suggest pneumonia. There are suture material within the right midlung zone. No acute fractures. IMPRESSION: Mild congestive change which has improved in the interval. ACT 112: Negative or not required by law. Electronically signed by: Amandeep Urrutia M.D. 06/01/2023 4:[address] 06/01/23 16:00 CT SCAN OF THE CERVICAL SPINE CLINICAL HISTORY: Change in mental status. COMPARISON STUDY: CT angiogram of the neck dated 12/18/2018 and 04/19/2013. TECHNIQUE: CT scan of the cervical spine is performed from the skull base to the upper thoracic spine. Images are reviewed in the axial, sagittal, and coronal planes. IV contrast was not administered for this examination. A dose lowering technique was utilized adhering to the principles of ALARA. CT DOSE: 1248.74 mGy.cm FINDINGS: Skeletal structures: The skeletal structures are osteopenic. There is no evidence of fracture or subluxation involving the cervical spine. Vertebral body height and alignment are maintained. Tiny anterior osteophytes are seen throughout. The odontoid process and lateral masses are intact. The atlantoaxial articulation is preserved nothing productive degenerative changes. The spinous processes appear intact. There is mild multilevel facet arthropathy. Numerous tiny lucencies are again seen throughout the skeletal structures. These are unchanged dating back to 2013 and abdominal significance. Intervertebral discs: There is minimal degenerative disc space narrowing. Central canal: Posterior disc osteophyte complexes at C3-C4, C4-C5, and C5-C6 may contribute to mild acquired compromise of the central canal. Soft tissues: The prevertebral and paraspinous soft tissues are within normal limits. The thyroid gland is heterogeneous and contains coarse calcifications. There is atherosclerotic calcification of the carotid bulbs. Calvarium: The visualized calvarium at the skull base appears intact. Brain parenchyma: Partially visualized brain parenchyma at the skull base is within normal limits. Sinuses and mastoids: The visualized paranasal sinuses are clear. The mastoid air cells are well pneumatized. Lung apices: Advanced symptoms in this change is noted. Upper lobe lung parenchyma is otherwise clear as imaged. IMPRESSION: 1. There is no evidence of fracture or subluxation involving the cervical spine. 2. Osteopenia and degenerative change as above. 3. Emphysema. ACT 112: Negative or not required by law. Electronically signed by: aMck Perez M.D. 06/01/2023 4:[address] 06/01/23 16:[address] DOSE: HISTORY: Altered mental status. TECHNIQUE: Multiaxial CT images of the head were performed without the use of intravenous contrast. Automated exposure control was utilized for this study. A dose lowering technique was utilized adhering to the principles of ALARA. Comparison: Head CT 03/28/2020. Findings: The paranasal sinuses and mastoid air cells are clear. The calvarium and skull base are intact. There is no mass, hematoma, midline shift, acute infarct. White matter hypodensity is nonspecific but suggestive of microvascular ischemic change. The ventricles and sulci demonstrate mild age-related involutional changes. There is an old lacunar infarct again noted within the right basal ganglia. Impression: No significant change compared to the prior study. No acute intracranial abnormality. ACT 112: Negative or not required by law. Electronically signed by: Amandeep Urrutia M.D. 06/01/2023 4:47 PM Renal Ultrasound 06/01/23 19:20 Exam(s): US RENAL EXAM: US Retroperitoneal Limited, Renal CLINICAL HISTORY: Reason for exam: brittney. TECHNIQUE: Real-time limited ultrasound of the retroperitoneum with image documentation. COMPARISON: No relevant prior studies available. FINDINGS: Right kidney: Unremarkable. No stones. No solid mass. No hydronephrosis. Left kidney: Unremarkable. No stones. No solid mass. No hydronephrosis. Bladder: Minimal debris in the urinary bladder. Correlate for UTI. LEFT ureteral jet identified. IMPRESSION: Minimal debris in the urinary bladder. Correlate for UTI. Electronically signed by: Nicholas Cabrera MD 06/01/23 21:26 PM 06/01/23 16:00 CT cervical spine wo con Stat CT head/brain wo con Stat 06/01/23 19:20 US Renal Bladder [US renal/blad retro comp] Urgent Hospital Course (1) Sepsis: Sepsis, influenza +/- superimposed secondary pneumonia Flu positive on bio fire - Treated with Unasyn, doxycycline Solumedrol 40mg BID Chest x-ray: Mild diffuse interstitial thickening and suspected mild congestive change without pleural effusions or acute lobar pneumonia noted Patient was discharge with the following: - Amoxicillin - clavulanate 875-125 mg - take a tab for 5 days twice a day, (to complete 7 days) - Doxycycline 100 mg - take a tab twice a day for 5 days, (to complete 7 days) - Tamiflu - take one cap daily for 2 days - Prednisone 5 mg (heaven)- Take 8 pills (40 mg) on day 1, take 7 tabs (35 mg) on day 2, continue decreasing 1 tab every day until finished (2) Flu: as noted. Continue tamiflu. (3) BRITTNEY (acute kidney injury): Prerenal, received fluid repletion as noted. Potassium normalized, creatinine being to downtrending on discharge lisinopril/Newman was held on admission. Both were continue on discharged due to improvement repeat a lab work up (BMP) next week (in about 4 days) before appointment with PCP (4) Hyperkalemia: Hyperkalemia Resolved - Suspect with BRITTNEY, severe volume contraction and sepsis As above, repeat BMP (5) COPD (chronic obstructive pulmonary disease): COPD Former tobacco use, on baseline 2 L nasal cannula Continue home Trelegy, pulmonary toilet - Duonebs - Continue prednisone taper as above (6) Paroxysmal atrial fibrillation: Heart failure preserved ejection fraction, history of A-fib, bioprosthetic mitral valve, Last echo 2022 EF 55 to 60%, bioprosthetic mitral valve present Patient with BNP elevation of up to 1400 in the past without acute CHF. On admit 1482. Continue metoprolol, spironolactone, Lasix Continued on amiodarone Patient has recurrently declined anticoagulation/Coumadin as an outpatient and is maintained on amiodarone. (7) Elevated troponin I level: Patient denies chest pain on admission. Suspect demand ischemia. downtrending on recheck. EKG w/ T wave inversions but no ST changes. (8) S/P mitral valve replacement with bioprosthetic valve: Total Time Total Time Spent Total Time Spent (In Minutes): <30 Discharge Plan Discharge Items Patient Disposition: Home - Self-Care Reason For Visit: SEPSIS, PNA, FLU Discharge Diagnosis: Influenza Pneumonia Activity: Resume your previous activity Non-emergency contact: Primary Care Provider Call non-emergency contact if: you have any medication questions, your symptoms worsen and your temperature is above 101 Follow-up/Referrals: Barrington Joshi MD [Primary Care Provider] - 06/15/23 3:00 pm (You will see Paty Ellis PA-C at your follow up. Thank you! ) Diet: Heart Healthy Ambulatory Orders: Basic Metabolic Panel (Routine) Timeframe: 4 Days Location: Determined by Patient Ordered By: Darya Lucia Attending Provider Instructions: - You were in the hospital due to the flu and pneumonia. It's very common to have pneumonia after a viral infection. We treated you with antibiotics and Tamiflu. Will prescribe antibiotics for you to take home. Tamiflu and prednisone heaven will be prescribe as well - During your admission you were found with an acute insult to your kidney and an increase on the potassium. Seem to be due to dehydration. Today your potassium is back to baseline. We want you to repeat a lab work up (BMP) next week (in about 4 days) before your appointment with your PCP New medication: - Amoxicillin - clavulanate 875-125 mg - take a tab for 5 days twice a day - Doxycycline 100 mg - take a tab twice a day for 5 days - Tamiflu - take one cap daily for 2 days - Prednisone 5 mg (heaven)- Take 8 pills (40 mg) on day 1, take 7 tabs (35 mg) on day 2, continue decreasing 1 tab every day until finished Follow-up appointments: Make a follow-up appointment with your PCP within the next week. It is very important that you follow up with them shortly after discharge from the hospital. Keep all your follow-up appointments as already scheduled. If you cannot make an appointment, notify your provider. Medications: Your medication list has been reviewed and reconciled upon discharge to ensure accuracy and continuity of care. An updated list of all your medications is included with your hospital discharge paperwork. Please review this list closely, and make note of any changes Take your medications as instructed; do not skip a dose of your medicines. Make sure all of your doctors know every medicine you are taking (including iaap-zpa-[id number] medicines, vitamins, and supplements). Call your primary care provider before taking any new medicines (including wnov-dhc-jewmfgg medicines, vitamins, and supplements), because some of these may interact with your current medications, or may make your symptoms worse. Tell your primary care provider if you cannot afford your medications. CALL 911 OR GO TO THE EMERGENCY DEPARTMENT if you experience any of the following: Sudden, severe abdominal pain or nausea/vomiting Severe chest pain, or chest pain that radiates (moves) to your jaw or arm Sudden, severe shortness of breath or difficulty breathing Thank you for allowing us to participate in your care. Pending Studies at Discharge: No Stand-Alone Forms: My [facility], Smoking Cessation Medications and DC Order Prescriptions: New oseltamivir [Tamiflu] 30 mg capsule 30 mg PO DAILY 2 Days Qty: 2 0RF doxycycline hyclate 100 mg Capsule 100 mg PO BID 4 Days Qty: 9 0RF prednisone 5 mg tablet See Rx Instructions .ROUTE .COMPLEX Qty: 36 0RF Rx Instructions: prednisone 5 mg: take 8 tablets (40 mg) on Day 1; 7 tablets (35 mg) on Day 2; then decrease by 1 tablet every day until finished amoxicillin-pot clavulanate 875-125 mg tablet 1 tab PO BID 5 Days Qty: 10 0RF Continued (DME) nebulizers Misc See Rx Instructions .Route Qty: 1 0RF Rx Instructions: Use with albuterol and saline nebulizer solution as directed (DME) nebulizer accessories Misc See Rx Instructions .Route Qty: 5 3RF Rx Instructions: TUBING AND ADULT ADMINISTRATION DEVICE/MASK atorvastatin 40 mg tablet 40 mg PO QPM Qty: 90 3RF cholecalciferol (vitamin D3) [Vitamin D3] 50 mcg (2,000 unit) tablet 4,000 unit PO QAM Qty: 90 3RF clopidogrel 75 mg tablet 75 mg PO QPM Qty: 90 3RF cyanocobalamin (vitamin B-12) 1,000 mcg tablet 1,000 mcg PO QAM Qty: 90 3RF folic acid 1 mg tablet 1 mg PO QAM Qty: 90 3RF furosemide [Lasix] 20 mg tablet 20 mg PO QAM Qty: 90 3RF lisinopril 2.5 mg tablet 2.5 mg PO QAM Qty: 90 3RF metoprolol succinate 25 mg tablet extended release 24 hr 12.5 mg PO DAILY Qty: 45 3RF montelukast 10 mg tablet 10 mg PO QAM Qty: 90 3RF pantoprazole 40 mg tablet,delayed release (DR/EC) 40 mg PO DAILY Qty: 90 3RF (DME) Wheeled Walker Misc See Rx Instructions .Route Qty: 1 0RF Rx Instructions: As directed amiodarone 200 mg tablet 200 mg PO QAM Qty: 90 3RF spironolactone 25 mg tablet 25 mg PO QAM Qty: 90 3RF Trelegy Ellipta 200-62.5-25 mcg blister with device 1 inh inhalation DAILY Qty: 60 5RF sodium chloride 7 % solution for nebulization 4 ml NEB BIDR Qty: 240 0RF magnesium oxide [MagOx] 400 mg (241.3 mg magnesium) tablet 400 mg PO BID Qty: 180 3RF ipratropium-albuterol 0.5 mg-3 mg(2.5 mg base)/3 mL solution for nebulization 3 ml NEB QID PRN (Reason: shortness of breath or wheezing) Discharge Orders: Discharge Order (Routine); Ordered 06/04/23 Ordered By: Darya Serrano Admission Data Admit Date/Time: 06/01/23 18:36 Attending Provider: Burton Cordova Admit Provider: Jason Upton Primary Care Provider: Barrington Joshi Other Providers: Jason Upton; Reed Lindo [facility] Other Interventions: Discharge Summary Assessment (RN) Last Done: 06/04/23 11:45 Supervising Physician Co-Signing Physician Notes I personally examined the patient and verified all velasquez points of history and exam, discussed case, and agree with decision making with Dr Andrea Serrano feeling better. feels up to going home/would like to go home. vitals noted thin and frail on NCO2 no conversational dyspnea no accessory muscle use. COPD exac due to influenza, sepsis and metabolic encephalopathy present on admission - safe for home, steroid taper/finish tamiflu/finish abx ARF - improving, safe/stable for home. outpt labs ~1wk DVT proph - heparin SQ Resident Activity Tracking Resident Involvement: Resident Care Provided Care Provided: Adult Hospital Medicine
[2023-06-04] MEDS: AMIODARONE 200 MG TAB PO SCH (08:37)
[2023-06-04] MEDS: DOXYCYCLINE HYCLATE 100 MG CAP PO SCH (08:37)
[2023-06-04] MEDS: guaiFENesin 600 MG TABCR PO SCH (08:37)
[2023-06-04] MEDS: FOLIC ACID 1 MG TAB PO SCH (08:37)
[2023-06-04] MEDS: HEPARIN SOD 5,000 UNIT/0.5 ML VIAL SQ SCH (08:38)
[2023-06-04] MEDS: MAGNESIUM OXIDE 400 MG TAB PO SCH (08:38)
[2023-06-04] MEDS: methylPREDNISolone 40 MG in SYRINGE 0 ML IV SCH (08:39)
[2023-06-04] MEDS: METOPROLOL SUCC 25MG EXT REL TAB PO SCH (08:40)
[2023-06-04] MEDS: MONTELUKAST SODIUM 10 MG TABLET PO SCH (08:40)
[2023-06-04] MEDS: OSELTAMIVIR PHOSPHATE SUSP 30 MG/5 ML UDP PO SCH (08:40)
[2023-06-04] MEDS: DULoxetine HCL 30 MG CAP PO SCH (08:41)
[2023-06-04] MEDS: UMECLIDINIUM/VILANTEROL 62.5/25MCG 7 PUFFS/INHALER INH SCH (08:41)
[2023-06-04] MEDS: PANTOprazole 40 MG TAB PO SCH (08:41)
[2023-06-04] MEDS: FLUTICASONE FUROATE 200MCG 14 PUFFS/INHALER INH SCH (08:41)
[2023-06-04 08:43] LABS: Acanthocytes 2+; Basophils # (auto) 0.02 K/uL (0.00-0.20); Basophils % (auto) 0.1 %; Echinocytes 1+; Eosinophils # (auto) 0.01 K/uL (0.00-0.50); Eosinophils % (auto) 0.1 %; Immature Granulocytes # (auto) 0.14 K/uL (0.01-0.20); Immature Granulocytes % (auto) 0.9 %; Lymphocytes # (auto) 0.49 K/uL (1.20-3.40); Lymphocytes % (auto) 3.2 %; Monocytes # (auto) 0.36 K/uL (0.11-0.59); Monocytes % (auto) 2.3 %; Neutrophils # (auto) 14.36 K/uL (1.40-6.50); Neutrophils % (auto) 93.4 %; Polychromasia 1+
--- NOTE | 2023-06-04 14:20 | Billing Data ---
Date of Service June 04, 2023 Coding Level of Care Code 59541 IN/OBS DISCH 30 MIN/LESS
[2023-06-04] MEDS ORDERED: OSELTAMIVIR PHOSPHATE SUSP 30 MG/5 ML UDP PO SCH (21:00)
[2023-06-05 09:32] LABS: 7-Aminoclonazepam DNR ng/mL (<25); Alpha-Hydroxyalprazolam DNR ng/mL (<25); Alphahydroxymidazolam DNR ng/mL (<50); Alphahydroxytriazolam DNR ng/mL (<50); Amobarbital DNR ng/mL (<100); Amphetamines, Ur NEGATIVE ng/mL (<500); Amphetemines Ur GC/MS DNR ng/mL (<250); Barbiturates, Urine NEGATIVE ng/mL (<300); Benzodiazepines,Ur NEGATIVE ng/mL (<100); Butalbital DNR ng/mL (<100); Cocaine, Urine NEGATIVE ng/mL (<150); Cocaine,Ur GC/MS DNR ng/mL (<100); Codeine NEGATIVE ng/mL (<50); Confirmatory Facility DNR; EDDP DNR ng/mL (<100); Hydrocodone NEGATIVE ng/mL (<50); Hydromorphone NEGATIVE ng/mL (<50); Hydroxyethylflurazepam DNR ng/mL (<50); Lorazepam DNR ng/mL (<50); Methadone, Ur GC/MS NEGATIVE ng/mL (<100); Methadone, Urine DNR ng/mL (<100); Methamphetamine DNR ng/mL (<250); Morphine NEGATIVE ng/mL (<50); Norhydrocodone NEGATIVE ng/mL (<50); Noroxycodone 1850 ng/mL (<50); Opiates, Urine NEGATIVE CONFIRMED ng/mL (<100); Oxycodone,Ur Screen POSITIVE ng/mL (<100); Pentobarbital DNR ng/mL (<100); Phencyclidine, Ur NEGATIVE ng/mL (<25); Phencyclidine,Ur GC/MS DNR ng/mL (<25); Secobarbital DNR ng/mL (<100); THC20, Qual, Urine NEGATIVE ng/mL (<20); Temazepam DNR ng/mL (<50); Tetrahydrocannabinol DNR ng/mL (<5)
[2023-06-06 05:18] LABS: Babesia microti DNA Not Detected (Not Detected)
== END 2023-06-04 13:13 | disposition home health service (06) | DRG 871 ==
LOC: SUATTDRO → ED 15:17 → SUATTDRO 18:36 → 2S 18:36

== ENCOUNTER 2023-07-12 13:01 | Inpatient (IN) ==
--- NOTE | 2023-07-12 13:45 | Emergency Department Note ---
Impression & Plan Pneumonia ADMIT ED Provider Note HPI: History obtained from patient The patient is a 63-year-old female with history of COPD, on 2 L nasal cannula oxygen at night only, who presents emergency department with chief complaint of dyspnea. Patient states that she believes her symptoms developed just earlier today. She had a scheduled visit with a home nurse and was noted to be hypoxic despite on her 2 L nasal cannula oxygen and therefore was sent to the ED for evaluation. On arrival here to the ED the patient overall appears well, she is stable now on 2 L nasal cannula oxygen with saturations of 95%. Patient denies any current chest pain but states she does have some mild shortness of breath. ROS: - Per HPI Differential Diagnosis: COVID-19 infection, influenza infection, other viral respiratory illness with dyspnea, CHF exacerbation, COPD exacerbation, bacterial pneumonia, amongst other potential pathologies. *Outpatient medications and allergy history reviewed. PE: General: Alert, cachectic appearing HEENT: Normocephalic, trachea midline Eyes: Extraocular eye movement is intact, no scleral erythema Pulmonary: Diminished bilaterally without wheezing Cardio: Regular rate and rhythm GI: Abdomen is soft to palpation : No suprapubic tenderness MSK: No evidence of trauma or malformation of the extremities, no edema Skin: No evidence of rash Neuro: Alert, no focal deficits Psychiatric: Cooperative INDEPENDENT INTERPRETATIONS: lunchroom monitor: (As interpreted by myself): - An order was placed for continuous cardiac monitoring - Patient was noted to be in sinus rhythm with a rate of 70 EKG: (As interpreted by myself): The rate: 72 Rhythm: Normal sinus rhythm Intervals: QT 497 ms, within normal limits ST changes: No ST elevation Time: 1337 Chest x-ray: (As interpreted by myself): Left lower lobe infiltrate Interventions provided in ED: -DuoNeb breathing treatment, IV Solu-Medrol, IV ceftriaxone, IV azithromycin Medical Decision Making: IV was established and lab work obtained, patient was placed on manager monitoring. Lab work shows a significant leukocytosis at 20.10, hemoglobin is normal, platelet count is normal, venous blood gas shows pH that is slightly alkalotic at 7.44, pCO2 is normal. CMP does not show any critical findings, creatinine appears at baseline. Troponin is slightly elevated at 14.1, patient denies any chest pain, EKG per my interpretation does not show any acute ischemic changes, low suspicion for ACS. COVID testing is negative. Given the patient's leukocytosis, finding of pneumonia on chest x-ray, and increased oxygen demand, blood cultures were drawn in the ED and the patient was started on IV ceftriaxone and IV azithromycin. I did discuss inpatient admission with the patient and she is in agreement. Case was then discussed with the on-call midlevel provider for the [facility] hospitalist service, KIMBERLY, and the patient was placed for admission in stable condition of the service of Dr. Upton. Critical Care Time: 35 minutes -Stabilization of patient with hypoxia with oxygen saturation of 77% on room air requiring supplemental oxygen for correction, interpretation of diagnostic studies, discussion with other healthcare providers and arrangement of admission. Consultants/Discussions held with other healthcare providers: -Hospitalist Service, Dr. Upton Disposition discussion held by myself with: -Patient Diagnosis: 1. Hypoxia, acute 2. Left lower lobe pneumonia, acute 3. Leukocytosis, acute 4. Dyspnea, acute Disposition: Admission James Rodriguez DO Emergency Medicine Past Med/Surg History Medical History Flu Abnormal CT scan, chest Atrial flutter with rapid ventricular response Chronic anticoagulation Paroxysmal atrial fibrillation Acute respiratory failure with hypoxia and hypercapnia Positive colorectal cancer screening using Cologuard test On anticoagulant therapy Positive colorectal cancer screening using Cologuard test Acute on chronic diastolic CHF (congestive heart failure) Abnormal EKG Elevated troponin Chronic combined systolic (congestive) and diastolic (congestive) heart failure Bilateral pleural effusion History of nicotine dependence Chronic dyspnea Diastolic CHF Mitral valve disease History of aortic valve disease Chronic back pain Arthritis Cholecystitis Hyperlipidemia Pulmonary hypertension Ischemic stroke Osteoporosis CAD (coronary artery disease) Emphysema/COPD Fibromyalgia Peripheral neuropathy GERD (gastroesophageal reflux disease) Depression Anxiety Transient ischemic attack (TIA) Hyperlipidemia On home oxygen therapy Hypertension Surgical History Hx laparoscopic cholecystectomy (01/13/21) S/P mitral valve replacement with bioprosthetic valve History of esophagogastroduodenoscopy (EGD) History of colonoscopy History of heart valve replacement History of lung biopsy History of bronchoscopy H/O: hysterectomy Family History Mother Slow to wake up after anesthesia Sister Family history of diabetes mellitus Father Stroke Other Coronary heart disease Denies family history of Ovarian cancer Prostate cancer Breast cancer Colorectal cancer Social History (Updated 06/15/23 @ 15:15 by Lisset Neves LPN) Smoking Status: Never smoker Tobacco Type: Cigarettes Age Started Using Tobacco: 18; packs per day: 0.5; Second Hand Exposure: Yes (FAMILY SMOKED); Do You Dip or Chew Tobacco: No; Hx Alcohol Use: No Hx Substance Use: No Preferred Language: Sinhala Communication Ability: Effective Hearing Ability: Normal 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 Required: No Beliefs That Will Affect Care: None marital status: Current Living Situation: Significant Other Current Living Situation Comment: Mac (boyfriend) current occupational status: unemployed and disabled How many Children do You have: 2 Feels Safe at Home: Yes Childhood Exposure to Second-Hand Smoke: Yes Diet: regular during the past year weight has: decreased > 10 lbs Dental Care, Regularly: No Physical Activity Frequency: 3-4 Times per Week Seatbelt Use: always Sunscreen Use: Yes Assistive Devices: Denture - Upper, Denture - Lower, Glasses and Oxygen - at Night Allergies Allergies Allergy/AdvReac Type Severity Reaction Status Date / Time aspirin Allergy Intermediate Hives Verified 07/11/23 15:03 hydrochlorothiazide Allergy Intermediate RASH/"Sick Verified 07/11/23 15:03 in stomach" trazodone AdvReac Severe Vomiting Verified 07/11/23 15:03 tramadol AdvReac Mild Nausea Verified 07/11/23 15:03 Home Meds Home Medications Medication Instructions Recorded Confirmed ipratropium 0.5 mg-albuterol 3 mg 3 ml NEB QID PRN shortness of 02/07/23 07/12/23 (2.5 mg base)/3 mL nebulization breath or wheezing soln mirtazapine 15 mg tablet 15 mg PO HS 07/12/23 07/12/23 Previous Rx's Medication Instructions Recorded nebulizer accessories #5 ea 02/13/23 nebulizers #1 ea 02/13/23 Wheeled Walker #1 ea 02/22/23 atorvastatin 40 mg tablet 40 mg PO QPM #90 tabs 02/22/23 clopidogrel 75 mg tablet 75 mg PO QPM #90 tabs 02/22/23 cyanocobalamin (vitamin B-12) 1,000 mcg PO QAM #90 tabs 02/22/23 1,000 mcg tablet folic acid 1 mg tablet 1 mg PO QAM #90 tabs 02/22/23 furosemide 20 mg tablet (Lasix) 20 mg PO QAM #90 tabs 02/22/23 metoprolol succinate 25 mg 12.5 mg (1/2 x 25 mg) PO DAILY #45 02/22/23 tablet,extended release 24 hr tabs montelukast 10 mg tablet 10 mg PO QAM #90 tabs 02/22/23 amiodarone 200 mg tablet 200 mg PO QAM #90 tabs 02/28/23 spironolactone 25 mg tablet 25 mg PO QAM #90 tabs 02/28/23 fluticasone fur. 200 mcg-umeclid 1 inh inhalation DAILY #60 ea 03/06/23 62.5 mcg-vilant 25 mcg inhalat.powder (Trelegy Ellipta) sodium chloride 7 % for 4 ml NEB BIDR #240 mL 05/11/23 nebulization magnesium oxide 400 mg (241.3 mg 400 mg PO BID #180 tabs 05/23/23 magnesium) tablet (MagOx) oxycodone 5 mg tablet 5 mg PO Q6H PRN pain #100 tabs 06/20/23 lisinopril 2.5 mg tablet 2.5 mg PO QAM #90 tabs 06/21/23 pantoprazole 40 mg tablet,delayed 40 mg PO DAILY #90 tabs 06/21/23 release cholecalciferol (vitamin D3) 50 4,000 unit PO QAM #90 tabs 07/11/23 mcg (2,000 unit) tablet (Vitamin D3) Results & Data (ED) Vital Signs Vital Signs - 24 hr 07/12/23 13:24 07/12/23 13:54 07/12/23 13:54 Temperature 37.0 C Temperature Source Temporal Artery Scan Pulse Rate 81 Pulse Rate [Apical] 66 Pulse Rhythm Regular Pulse Strength Normal Respiratory Rate 27 H 20 Respiratory Effort / Characteristics Non-Labored Respiratory Depth Normal Blood Pressure 125/71 Blood Pressure [Right Arm] 149/66 H Blood Pressure Mean 89 Blood Pressure Mean [Right Arm] 93 Blood Pressure Position Sitting Pulse Oximetry 77 L 95 Oxygen Delivery Method Room Air Nasal Cannula Nasal Cannula Oxygen Flow Rate 3 3 Sepsis Recent Fever Within 48 Hours No Sepsis New/Unexplained Change in Mental Status No Sepsis Action Taken by Nursing No Action Required 07/12/23 13:54 07/12/23 14:09 07/12/23 15:00 Temperature Temperature Source Pulse Rate 66 Pulse Rate [Apical] 66 Pulse Rhythm Pulse Strength Respiratory Rate 20 Respiratory Effort / Characteristics Non-Labored Respiratory Depth Normal Blood Pressure Blood Pressure [Right Arm] 153/68 H Blood Pressure Mean Blood Pressure Mean [Right Arm] 96 Blood Pressure Position Pulse Oximetry 96 95 Oxygen Delivery Method Nasal Cannula Nasal Cannula Oxygen Flow Rate 3 2 Sepsis Recent Fever Within 48 Hours Sepsis New/Unexplained Change in Mental Status Sepsis Action Taken by Nursing Laboratory Data 07/12/23 14:02 07/12/23 14:02 Lab Results 07/12/23 07/12/23 Range/Units 13:30 14:02 WBC 20.10 H (4.8-10.8) K/ul RBC 4.93 (4.20-5.40) M/uL Hgb 14.3 (12.0-16.0) g/dl Hct 43.5 (37.0-47.0) % MCV 88.2 (80.0-100.0) fL MCH 29.0 (25.0-34.0) pg MCHC 32.9 (32.0-36.0) g/dL RDW Std Deviation 48.2 H (36.4-46.3) fL RDW Coeff of Claudette 14.8 H (11.5-14.5) % Plt Count 323 (130-400) K/uL MPV 10.0 (9.4-12.4) fL Immature Gran % (Auto) 0.8 % Neut % (Auto) 94.5 % Lymph % (Auto) 3.6 % [place] % (Auto) 1.0 % Eos % (Auto) 0.0 % Baso % (Auto) 0.1 % Neut # (Auto) 18.98 H (1.40-6.50) K/uL Lymph # (Auto) 0.73 L (1.20-3.40) K/uL [place] # (Auto) 0.21 (0.11-0.59) K/uL Eos # (Auto) 0.00 (0.00-0.50) K/uL Baso # (Auto) 0.02 (0.00-0.20) K/uL Immature Gran # (Auto) 0.16 (0.01-0.20) K/uL VBG pH 7.44 H (7.36-7.41) VBG pCO2 50 (38-50) mmHg VBG pO2 47 mmHg VBG HCO3 34 mmol/L VBG O2 Saturation 70.5 % VBG Base Excess 8.3 mEq/L Sodium 136 (136-145) mmol/L Potassium 4.5 (3.5-5.1) mmol/L Chloride 100 (98-107) mmol/L Carbon Dioxide 29 (21-32) mmol/L Anion Gap 7 (3-11) BUN 23 (6-23) mg/dl Creatinine 1.41 H (0.6-1.2) mg/dl Est Cr Clr Drug Dosing 22.5 ml/min Est GFR ( Amer) 46.2 ml/min Est GFR (Non-Af Amer) 39.8 ml/min BUN/Creatinine Ratio 16.3 (10-20) Glucose 116 H (70-99(Fasting)) mg/dl Calcium 9.2 (8.6-10.3) mg/dl Total Bilirubin 0.4 (0.2-1.0) mg/dl AST 17 (13-39) U/L ALT 21 (7-52) U/L Alkaline Phosphatase 80 (34-104) U/L Troponin I High Sens 14.1 H (0-14) pg/ml Total Protein 7.0 (6.0-8.3) gm/dl Albumin 4.0 (3.4-5.0) gm/dl Globulin 3.0 (2.5-4.0) gm/dl Albumin/Globulin Ratio 1.3 (0.9-2) Lipase 16 (11-82) U/L SARS-CoV-2 (PCR) NEGATIVE (Negative) Administered Medications Azithromycin 500 mg/ Dextrose 255 mls @ 125 mls/hr IV NOW ONE Stop: 07/12/23 17:12 Last Admin: 07/12/23 16:03 Dose: 125 mls/hr Documented By: AEF Discontinued Medications Albuterol (Albut/Ipratrop 3mg/0.5mg Neb 3 Ml Vial) 3 ml NEB NOW STA; Protocol Stop: 07/12/23 13:38 Last Admin: 07/12/23 13:49 Dose: 3 ml Documented By: AEF Ceftriaxone Sodium (Rocephin) 1,000 mg in 50 mls @ 100 mls/hr IV NOW STA Stop: 07/12/23 15:39 Last Infusion: 07/12/23 16:04 Dose: 0 mls/hr Documented By: Admin: 07/12/23 15:44 Dose: 100 mls/hr Documented By: MAGGIE Methylprednisolone (Methylprednisolone 125 Mg/2 Ml Vial) 125 mg IV NOW STA Stop: 07/12/23 13:38 Last Admin: 07/12/23 13:49 Dose: 125 mg Documented By: AEF Imaging Data Radiologist's Impression: Chest X-Ray 07/12/23 13:31 XR chest 1V portable HISTORY: 63 years-old Female Chest pain, nonspecific COMPARISON: Chest CT 06/29/2023 TECHNIQUE: AP view of the chest FINDINGS: Cardiac silhouette is enlarged. Median sternotomy. Emphysema with chronic interstitial coarsening. Chronic left lung volume loss. Progressive consolidation of the left lung compared to the prior study with probable small left pleural effusion. Degenerative changes of the shoulders and spine. IMPRESSION: 1. Cardiomegaly without pulmonary edema. 2. Progressive airspace consolidation of the left lung, most pronounced in the left lung base suggestive of pneumonia. Continued follow-up recommended. 3. Advanced pulmonary emphysema. ACT 112: Negative or not required by law. The above report was generated using voice recognition software. It may contain grammatical, syntax or spelling errors. Electronically signed by: Indio Mcdaniel M.D. 07/12/2023 3:00 PM Discharge Plan Visit Data Chief Complaint: Respiratory Problems Stated Complaint: COUGHING,SP02 [id number],L LUNG PAIN ED Provider: James Rodriguez Discharge Problem: Pneumonia Forms Stand Alone Forms: [facility] Prescriptions Prescriptions: No Action (DME) nebulizers Mis See Rx Instructions .Route Qty: 1 0RF Rx Instructions: Use with albuterol and saline nebulizer solution as directed (DME) nebulizer accessories Misc See Rx Instructions .Route Qty: 5 3RF Rx Instructions: TUBING AND ADULT ADMINISTRATION DEVICE/MASK atorvastatin 40 mg tablet 40 mg PO QPM Qty: 90 3RF clopidogrel 75 mg tablet 75 mg PO QPM Qty: 90 3RF cyanocobalamin (vitamin B-12) 1,000 mcg tablet 1,000 mcg PO QAM Qty: 90 3RF folic acid 1 mg tablet 1 mg PO QAM Qty: 90 3RF furosemide [Lasix] 20 mg tablet 20 mg PO QAM Qty: 90 3RF metoprolol succinate 25 mg tablet extended release 24 hr 12.5 mg PO DAILY Qty: 45 3RF montelukast 10 mg tablet 10 mg PO QAM Qty: 90 3RF (DME) Wheeled Walker Misc See Rx Instructions .Route Qty: 1 0RF Rx Instructions: As directed amiodarone 200 mg tablet 200 mg PO QAM Qty: 90 3RF spironolactone 25 mg tablet 25 mg PO QAM Qty: 90 3RF Trelegy Ellipta 200-62.5-25 mcg blister with device 1 inh inhalation DAILY Qty: 60 5RF sodium chloride 7 % solution for nebulization 4 ml NEB BIDR Qty: 240 0RF magnesium oxide [MagOx] 400 mg (241.3 mg magnesium) tablet 400 mg PO BID Qty: 180 3RF oxycodone 5 mg tablet 5 mg PO Q6H PRN (Reason: pain) Qty: 100 0RF pantoprazole 40 mg tablet,delayed release (DR/EC) 40 mg PO DAILY Qty: 90 3RF lisinopril 2.5 mg tablet 2.5 mg PO QAM Qty: 90 3RF cholecalciferol (vitamin D3) [Vitamin D3] 50 mcg (2,000 unit) tablet 4,000 unit PO QAM Qty: 90 3RF ipratropium-albuterol 0.5 mg-3 mg(2.5 mg base)/3 mL solution for nebulization 3 ml NEB QID PRN (Reason: shortness of breath or wheezing) mirtazapine 15 mg tablet 15 mg PO HS Referrals Referrals: Barrington Joshi MD [Primary Care Provider] - Discharge Problem: Pneumonia Qualifiers: Pneumonia type: due to unspecified organism Laterality: left Lung location: l ower lobe of lung Qualified Code(s): J18.9 - Pneumonia, unspecified organism
[2023-07-12] MEDS: methylPREDNISolone 125 MG/2 ML VIAL IV STA (13:49)
[2023-07-12] MEDS: ALBUT/IPRATROP 3MG/0.5MG NEB 3 ML VIAL NEB STA (13:49)
[2023-07-12 14:24] LABS: Base Excess VBG 8.3 mEq/L; HCO3 VBG 34 mmol/L; Oxygen Saturation VBG 70.5 %; PCO2 VBG 50 mmHg (38-50); PO2 VBG 47 mmHg; pH VBG 7.44 (7.36-7.41)
[2023-07-12 14:34] LABS: Hematocrit (blood only) 43.5 % (37.0-47.0); Hemoglobin 14.3 g/dl (12.0-16.0); Mean Corpuscular Hgb Conc 32.9 g/dL (32.0-36.0); Mean Corpuscular Volume 88.2 fL (80.0-100.0); Platelet Count 323 K/uL (130-400); RDW Coefficient of Variation 14.8 % (11.5-14.5); RDW Standard Deviation 48.2 fL (36.4-46.3); Red Blood Count 4.93 M/uL (4.20-5.40)
[2023-07-12 14:49] LABS: Albumin Globulin Ratio 1.3 (0.9-2); BUN Creatinine Ratio 16.3 (10-20); Basophils # (auto) 0.02 K/uL (0.00-0.20); Basophils % (auto) 0.1 %; Bilirubin,Total 0.4 mg/dl (0.2-1.0); Calcium 9.2 mg/dl (8.6-10.3); Creatinine Clr Calc Pharmacy 22.5 ml/min; Est GFR (African American) 46.2 ml/min; Est GFR (Non-African American) 39.8 ml/min; Immature Granulocytes # (auto) 0.16 K/uL (0.01-0.20); Immature Granulocytes % (auto) 0.8 %; Lymphocytes # (auto) 0.73 K/uL (1.20-3.40); Lymphocytes % (auto) 3.6 %; Monocytes # (auto) 0.21 K/uL (0.11-0.59); Neutrophils # (auto) 18.98 K/uL (1.40-6.50); Neutrophils % (auto) 94.5 %; Potassium 4.5 mmol/L (3.5-5.1)
[2023-07-12 14:54] LABS: Troponin I High Sensitivity 14.1 pg/ml (0-14)
--- NOTE | 2023-07-12 15:02 | XRay Report ---
XR chest 1V portable HISTORY: 63 years-old Female Chest pain, nonspecific COMPARISON: Chest CT 06/29/2023 TECHNIQUE: AP view of the chest FINDINGS: Cardiac silhouette is enlarged. Median sternotomy. Emphysema with chronic interstitial coarsening. Ch ronic left lung volume loss. Progressive consolidation of the left lung compared to the prior study w ith probable small left pleural effusion. Degenerative changes of the shoulders and spine. IMPRESSION: 1. Cardiomegaly without pulmonary edema. 2. Progressive airspace consolidation of the left lung, most pronounced in the left lung base suggest dada of pneumonia. Continued follow-up recommended. 3. Advanced pulmonary emphysema. ACT 112: Negative or not required by law. The above report was generated using voice recognition software. It may contain grammatical, syntax o r spelling errors. Electronically signed by: [place] Mcdaniel M.D. 07/12/2023 3:00 PM
[2023-07-12] MEDS: cefTRIAXone SODIUM 1,000 MG/50 ML BAG IV STA (15:44)
--- NOTE | 2023-07-12 15:59 | History & Physical Report ---
Date of Service July 12, 2023 Assessment & Plan (1) Left lower lobe pneumonia: Plan: Hypoxia in the 80-85% range on RA when checked on by home health nurse on 07/11; patient also endorses productive cough Leukocytosis at 20.10 with a neutrophil predominance; in the setting of recent steroid taper prescribed on 07/03 Patient recently finished a 7-day course of doxycycline and Augmentin Patient wears supplemental oxygen 2L NC at night CXR revealed airspace consolidation suggestive of left lower lobe pneumonia; advanced emphysema COVID-negative MRSA swab ordered, pending Sputum culture ordered, pending Flutter valve, incentive spirometry Guaifenesin 1200 mg p.o. BID Rocephin 1000 mg IV q24h Will switch azithromycin to doxycycline 100 mg IV twice daily given QTc 497 DuoNeb 3 mL q6r for wheezing Sodium chloride 7% neb solution BIDR Supplemental oxygen to maintain SpO2 >89%; titrate for COPD Continuous pulse oximetry A.m. CBC, BMP, mag (2) BRITTNEY (acute kidney injury): Plan: Creatinine 1.41 on arrival with unclear baseline (likely 0.97); drug Cr Cl <30 Hold lisinopril, Lasix, spironolactone for now Encourage oral fluids (3) Malnutrition: Plan: Dietitian consulted AHA diet (4) Elevated troponin: Plan: Elevated troponin at 14.1 on arrival, repeat pending Continuous telemetry monitoring (5) COPD (chronic obstructive pulmonary disease): Plan: Continue home inhalers (6) Insomnia: Plan: Mirtazapine, melatonin at bedtime (7) (HFpEF) heart failure with preserved ejection fraction: Plan: Hold diuretics for now (as above) Last echo on 01/27/2023 revealed LVEF at 55-60% (8) [facility] use: Plan: Patient reports burning in her legs/restless leg syndrome when she misses doses of oxycodone 5 mg q6h Can continue home dose of oxycodone 5 mg p.o. q6h while inpatient Do not elevate above this point Plan Disposition: Admit to [facility] telemetry Full code AHA diet VTE PPx: Heparin 5000u SQ q12h History of Present Illness Chief Complaint: Respiratory problems Primary Care Provider: Barrington Joshi MD Jennifer is a pleasant 63-year-old female with PMH of COPD, NSTEMI, CAD, s/p mitral valve replacement, aortic regurg, paroxysmal SVT, opioid dependence, HFpEF, HTN, severe proteincalorie malnutrition, TIA, and sepsis. She presented for SOB at rest, productive cough, and hypoxia around 80-85% on 07/11. Patient was 77% on RA at ED arrival. Patient recently finished a course of antibiotics for bronchitis prescribed on 07/03 (doxycycline 100 mg twice daily x 7 days, Augmentin [id number] twice daily x 7 days, and a prednisone 6-day taper starting at 60mg). P atient reports that she wears 2L NC at night. She developed a severe, sharp pain intermittently in her left upper rib cage and flank that started the morning of 07/11. No radiation to the back. Worse with deep breaths; pleuritic. She did not take any pain medication for it. She also reports SOB at rest with no alleviating or exacerbating symptoms (such as lying flat). No recent change in medications, and she reports that she took her regular morning medications today. She has had a productive cough (yellow/green sputum production) since her last hospital admission. No hemoptysis. No CPAP at night. No sick contacts. She denies smoking, tobacco use, and alcohol use. Patient is hypertensive at 153/68 at time of admission; SpO2 95% on 2L NC. ED course: Azithromycin 500 mg IV DuoNeb 3 mL Solu-Medrol 125 mg IV Rocephin 1000 mg IV ROS: Patient endorses SOB at rest, pleuritic/left-sided rib CP, productive cough (yellow/green sputum production), and a burning pain in her legs bilaterally. Patient denies fever, chills, night sweats, dizziness, lightheadedness, headache, chest palpitations, hemoptysis, abdominal pain, N/V/D, or urinary symptoms. Allergies Allergy/AdvReac Type Severity Reaction Status Date / Time aspirin Allergy Intermediate Hives Verified 07/11/23 15:03 hydrochlorothiazide Allergy Intermediate RASH/"Sick Verified 07/11/23 15:03 in stomach" trazodone AdvReac Severe Vomiting Verified 07/11/23 15:03 tramadol AdvReac Mild Nausea Verified 07/11/23 15:03 Home Medications Medication Instructions Recorded Confirmed Type ipratropium 0.5 mg-albuterol 3 mg 3 ml NEB QID PRN shortness of 10/10/23 03/13/24 History (2.5 mg base)/3 mL nebulization breath or wheezing soln nebulizer accessories #5 ea 02/13/23 07/11/23 Rx nebulizers #1 ea 02/13/23 07/11/23 Rx Wheeled Walker #1 ea 02/22/23 07/11/23 Rx atorvastatin 40 mg tablet 40 mg PO QPM #90 tabs 02/22/23 07/12/23 Rx clopidogrel 75 mg tablet 75 mg PO QPM #90 tabs 02/22/23 07/12/23 Rx cyanocobalamin (vitamin B-12) 1,000 mcg PO QAM #90 tabs 02/22/23 07/12/23 Rx 1,000 mcg tablet folic acid 1 mg tablet 1 mg PO QAM #90 tabs 02/22/23 07/12/23 Rx furosemide 20 mg tablet (Lasix) 20 mg PO QAM #90 tabs 02/22/23 07/12/23 Rx metoprolol succinate 25 mg 12.5 mg (1/2 x 25 mg) PO DAILY #45 02/22/23 07/12/23 Rx tablet,extended release 24 hr tabs montelukast 10 mg tablet 10 mg PO QAM #90 tabs 02/22/23 07/12/23 Rx amiodarone 200 mg tablet 200 mg PO QAM #90 tabs 02/28/23 07/12/23 Rx spironolactone 25 mg tablet 25 mg PO QAM #90 tabs 02/28/23 07/12/23 Rx fluticasone fur. 200 mcg-umeclid 1 inh inhalation DAILY #60 ea 03/06/23 07/12/23 Rx 62.5 mcg-vilant 25 mcg inhalat.powder (Trelegy Ellipta) sodium chloride 7 % for 4 ml NEB BIDR #240 mL 05/11/23 07/12/23 Rx nebulization magnesium oxide 400 mg (241.3 mg 400 mg PO BID #180 tabs 05/23/23 07/12/23 Rx magnesium) tablet (MagOx) oxycodone 5 mg tablet 5 mg PO Q6H PRN pain #100 tabs 06/20/23 07/12/23 Rx lisinopril 2.5 mg tablet 2.5 mg PO QAM #90 tabs 06/21/23 07/12/23 Rx pantoprazole 40 mg tablet,delayed 40 mg PO DAILY #90 tabs 06/21/23 07/12/23 Rx release cholecalciferol (vitamin D3) 50 4,000 unit PO QAM #90 tabs 07/11/23 07/12/23 Rx mcg (2,000 unit) tablet (Vitamin D3) mirtazapine 15 mg tablet 15 mg PO HS 07/12/23 07/12/23 History Past Med/Surg History Medical History Flu Abnormal CT scan, chest Atrial flutter with rapid ventricular response Chronic anticoagulation Paroxysmal atrial fibrillation Acute respiratory failure with hypoxia and hypercapnia Positive colorectal cancer screening using Cologuard test On anticoagulant therapy Positive colorectal cancer screening using Cologuard test Acute on chronic diastolic CHF (congestive heart failure) Abnormal EKG Elevated troponin Chronic combined systolic (congestive) and diastolic (congestive) heart failure Bilateral pleural effusion History of nicotine dependence Chronic dyspnea Diastolic CHF Mitral valve disease History of aortic valve disease Chronic back pain Arthritis Cholecystitis Hyperlipidemia Pulmonary hypertension Ischemic stroke Osteoporosis CAD (coronary artery disease) Emphysema/COPD Fibromyalgia Peripheral neuropathy GERD (gastroesophageal reflux disease) Depression Anxiety Transient ischemic attack (TIA) Hyperlipidemia On home oxygen therapy Hypertension Surgical History Hx laparoscopic cholecystectomy (01/13/21) S/P mitral valve replacement with bioprosthetic valve History of esophagogastroduodenoscopy (EGD) History of colonoscopy History of heart valve replacement History of lung biopsy History of bronchoscopy H/O: hysterectomy Family History Mother Slow to wake up after anesthesia Sister Family history of diabetes mellitus Father Stroke Other Coronary heart disease Denies family history of Ovarian cancer Prostate cancer Breast cancer Colorectal cancer Social History (Updated 06/15/23 @ 15:15 by Lisset Neves LPN) Smoking Status: Former smoker Tobacco Type: Cigarettes Age Started Using Tobacco: 18; packs per day: 0.5; Second Hand Exposure: Yes (FAMILY SMOKED); Do You Dip or Chew Tobacco: No; Hx Alcohol Use: No Hx Substance Use: No Preferred Language: Kinyarwanda Communication Ability: Effective Hearing Ability: Normal Cuffer Required: Yes Beliefs That Will Affect Care: None marital status: Current Living Situation: Spouse Current Living Situation Comment: Mac (boyfriend) current occupational status: unemployed and disabled How many Children do You have: 2 Other Information That Helps Us Care for You: No Feels Safe at Home: Yes Safety Concerns: Feels Safe At This Time Childhood Exposure to Second-Hand Smoke: Yes Diet: regular during the past year weight has: decreased > 10 lbs Dental Care, Regularly: No Physical Activity Frequency: 3-4 Times per Week Seatbelt Use: always Sunscreen Use: Yes Assistive Devices: Denture - Upper, Denture - Lower, Glasses and Oxygen - at Night Review of Systems Review of Systems: See HPI above Physical Exam Physical Exam: General: no acute distress; non-toxic appearing; well-nourished; cooperative HEENT: normocephalic, atraumatic; no scleral icterus; PERRLA w/ EOMs intact; moist mucus membrane; vision and hearing grossly intact Neck: supple; no JVD; no lymphadenopathy; trachea midline Skin: warm, dry without signs of tenting; no cyanosis; no rashes, bruising, lesions, or erythema noted CV: chest wall NTP; RRR; S1/S2 normal; no murmurs/rubs/gallops; pulses intact and symmetric at radial, DP, and PT Lungs: no acute respiratory distress; symmetrical chest wall expansion; clear breath sounds across all lung orellana w/o adventitious sounds; no wheezing ABD: Soft, NTP; BS present; no rebound/guarding; no ascites; no distention; negative CVA tenderness MSK: no tics or fasciculations; no edema noted in the LEs b/l, nonerythematous Neuro: A&Ox3; normal mood and affect; fluent speech; no focal deficits; sensation grossly intact in the LEs b/l Results & Data Results & Data Vital Signs (Past 12 Hours) Vital Signs Temp Pulse Pulse Resp BP BP Pulse Ox 07/12/23 15:00 66 20 153/68 H 95 07/12/23 14:09 66 07/12/23 13:54 96 07/12/23 13:54 66 20 149/66 H 95 07/12/23 13:54 07/12/23 13:24 37.0 C 81 27 H 125/71 77 L O2 Del Method O2 Flow Rate 07/12/23 15:00 Nasal Cannula 2 07/12/23 14:09 07/12/23 13:54 Nasal Cannula 3 07/12/23 13:54 Nasal Cannula 3 07/12/23 13:54 Nasal Cannula 3 07/12/23 13:24 Room Air Laboratory Results Abnormal lab results 07/12/23 Range/Units 14:02 WBC 20.10 H (4.8-10.8) K/ul RDW Std Deviation 48.2 H (36.4-46.3) fL RDW Coeff of Claudette 14.8 H (11.5-14.5) % Neut # (Auto) 18.98 H (1.40-6.50) K/uL Lymph # (Auto) 0.73 L (1.20-3.40) K/uL VBG pH 7.44 H (7.36-7.41) Creatinine 1.41 H (0.6-1.2) mg/dl Glucose 116 H (70-99(Fasting)) mg/dl Troponin I High Sens 14.1 H (0-14) pg/ml Diagnostic Findings Chest X-Ray 07/12/23 13:31 XR chest 1V portable HISTORY: 63 years-old Female Chest pain, nonspecific COMPARISON: Chest CT 06/29/2023 TECHNIQUE: AP view of the chest FINDINGS: Cardiac silhouette is enlarged. Median sternotomy. Emphysema with chronic interstitial coarsening. Chronic left lung volume loss. Progressive c onsolidation of the left lung compared to the prior study with probable small left pleural effusion. Degenerative changes of the shoulders and spine. IMPRESSION: 1. Cardiomegaly without pulmonary edema. 2. Progressive airspace consolidation of the left lung, most pronounced in the left lung base suggestive of pneumonia. Continued follow-up recommended. 3. Advanced pulmonary emphysema. ACT 112: Negative or not required by law. The above report was generated using voice recognition software. It may contain grammatical, syntax or spelling errors. Electronically signed by: Indio Mcdaniel M.D. 07/12/2023 3:00 PM Supervising Physician Co-Signing Physician Notes Patient seen and examined, chart reviewed, case discussed with Amandeep Godinez and I agree with the assessment and plan as above except as otherwise noted Labs and images reviewed 61-year-old female with history of COPD, recurrent pneumonia, NSTEMI, mitral valve replacement who presents with shortness of breath, increased oxygen requirements, nonproductive cough and concern for left lower pneumonia on imaging. MRSA swab is pending. Patient is on Rocephin/azithromycin. Add adjunct vancomycin if nare returns positive. Continue COPD treatment. Agree with assessment and management as above. At time of bedside assessment lungs are diminished scattered expiratory wheezes no rales or rhonchi are appreciated. PG Care Time/CCT Total # of Minutes Spent Total Time Spent with Patient: Total time spent is greater than 50% in coordination of care (as documented) at patient's floor/unit and/or counseling patient: Coding [place] [address] INT INP/OBS CARE MIN Patient Type Established History Comprehensive Exam Comprehensive Medical Decision Making High Complexity Diagnoses Left lower lobe pneumonia J18.9 BRITTNEY (acute kidney injury) N17.9 Malnutrition E46 Elevated troponin R77.8 Pulmonary emphysema, unspecified emphysema type J43.9 COPD type: emphysema Emphysema type: unspecified Insomnia G47.00 Heart failure with preserved ejection fraction, unspecified HF chronicity I50.30 Heart failure chronicity: unspecified [facility] opiate use Z79.891 (5) COPD (chronic obstructive pulmonary disease) COPD type: emphysema Emphysema type: unspecified Qualified Code(s): J43.9 - Emphysema, unspecified (7) (HFpEF) heart failure with preserved ejection fraction Heart failure chronicity: unspecified Qualified Code(s): I50.30 - Unspecified diastolic (congestive) heart failure
[2023-07-12] MEDS: AZITHROMYCIN 500 MG in DEXTROSE 5% 250 ML IV ONE (16:03)
[2023-07-12] MEDS: oxyCODONE HCL IR 5 MG TAB (IMMEDIATE RELEASE) PO STA (16:32)
[2023-07-12] MEDS ORDERED: ACETAMINOPHEN 325 MG TAB PO PRN (17:24)
[2023-07-12] MEDS: SODIUM CHLOR 7% 4 ML NEB NEB SCH (19:58)
[2023-07-12] MEDS: ALBUT/IPRATROP 3MG/0.5MG NEB 3 ML VIAL INH SCH (19:58)
[2023-07-12] MEDS: ATORVASTATIN 40 MG TAB PO SCH (20:21)
[2023-07-12] MEDS: MIRTAZAPINE TAB 15 MG TAB PO SCH (20:21)
[2023-07-12] MEDS: guaiFENesin 600 MG TABCR PO SCH (20:21)
[2023-07-12] MEDS: MELATONIN 3 MG TAB PO SCH (20:21)
[2023-07-12] MEDS: CLOPIDOGREL BISULFATE 75 MG TAB PO SCH (20:21)
[2023-07-12] MEDS: HEPARIN SOD 5,000 UNIT/0.5 ML VIAL SQ SCH (21:56)
[2023-07-12] MEDS: oxyCODONE HCL IR 5 MG TAB (IMMEDIATE RELEASE) PO PRN (23:22)
[2023-07-13 08:13] LABS: Basophils # (auto) 0.03 K/uL (0.00-0.20); Basophils % (auto) 0.2 %; Hematocrit (blood only) 43.4 % (37.0-47.0); Hemoglobin 13.9 g/dl (12.0-16.0); Immature Granulocytes # (auto) 0.14 K/uL (0.01-0.20); Immature Granulocytes % (auto) 0.8 %; Lymphocytes # (auto) 1.31 K/uL (1.20-3.40); Lymphocytes % (auto) 7.9 %; Mean Corpuscular Hemoglobin 29.1 pg (25.0-34.0); Mean Corpuscular Volume 90.8 fL (80.0-100.0); Monocytes # (auto) 0.79 K/uL (0.11-0.59); Monocytes % (auto) 4.7 %; Neutrophils % (auto) 86.4 %; Platelet Count 300 K/uL (130-400); RDW Coefficient of Variation 14.6 % (11.5-14.5); RDW Standard Deviation 48.8 fL (36.4-46.3); Red Blood Count 4.78 M/uL (4.20-5.40); White Blood Count 16.67 K/ul (4.8-10.8)
[2023-07-13] MEDS: methylPREDNISolone 40 MG in SYRINGE 0 ML IV SCH (08:31)
[2023-07-13] MEDS: FLUTICASONE FUROATE 200MCG 14 PUFFS/INHALER INH SCH (08:32)
[2023-07-13] MEDS: UMECLIDINIUM/VILANTEROL 62.5/25MCG 7 PUFFS/INHALER INH SCH (08:32)
[2023-07-13] MEDS: AMIODARONE 200 MG TAB PO SCH (08:32)
[2023-07-13] MEDS: FOLIC ACID 1 MG TAB PO SCH (08:32)
[2023-07-13] MEDS: PANTOprazole 40 MG TAB PO SCH (08:33)
[2023-07-13] MEDS: MONTELUKAST SODIUM 10 MG TABLET PO SCH (08:33)
[2023-07-13] MEDS: CYANOCOBALAMIN (B-12) 500 MCG TABLET PO SCH (08:33)
[2023-07-13] MEDS: METOPROLOL SUCC 25MG EXT REL TAB PO SCH (08:33)
[2023-07-13 08:37] LABS: BUN Creatinine Ratio 17.9 (10-20); Calcium 9.5 mg/dl (8.6-10.3); Creatinine Clr Calc Pharmacy 24.8 ml/min; Est GFR (African American) 49.1 ml/min; Est GFR (Non-African American) 42.4 ml/min; Potassium 5.7 mmol/L (3.5-5.1)
[2023-07-13] MEDS: cefTRIAXone SODIUM 1,000 MG in DEXTROSE 5 % MINI-B 50 ML IV SCH (15:01)
[2023-07-13] MEDS ORDERED: AZITHROMYCIN 500 MG in DEXTROSE 5% 250 ML IV SCH (16:00)
[2023-07-13] MEDS: DOXYCYCLINE HYCLATE 100 MG in DEXTROSE 5% MINI-B 100 ML IV SCH (18:01)
--- NOTE | 2023-07-13 18:01 | Hospitalist Progress Note ---
Date of Service July 13, 2023 Assessment & Plan (1) Left lower lobe pneumonia: Plan: Hypoxia in the 80-85% range on RA when checked on by home health nurse on 07/11; patient also endorses productive cough Leukocytosis at 20.10 with a neutrophil predominance; in the setting of recent steroid taper prescribed on 07/03 Patient recently finished a 7-day course of doxycycline and Augmentin Patient wears supplemental oxygen 2L NC at night CXR revealed airspace consolidation suggestive of left lower lobe pneumonia; advanced emphysema COVID-negative MRSA swab ordered, pending Sputum culture ordered, pending Flutter valve, incentive spirometry Guaifenesin 1200 mg p.o. BID Rocephin 1000 mg IV q24h Will switch azithromycin to doxycycline 100 mg IV twice daily given QTc 497 DuoNeb 3 mL q6r for wheezing Sodium chloride 7% neb solution BIDR Supplemental oxygen to maintain SpO2 >89%; titrate for COPD Continuous pulse oximetry A.m. CBC, BMP, mag (2) BRITTNEY (acute kidney injury): Plan: Creatinine 1.41 on arrival with unclear baseline (likely 0.97); drug Cr Cl <30 Hold lisinopril, Lasix, spironolactone for now Encourage oral fluids monitor BMP (3) Malnutrition: Plan: Dietitian consulted AHA diet (4) Elevated troponin: Plan: Elevated troponin at 14.1 on arrival, repeat pending Continuous telemetry monitoring (5) COPD (chronic obstructive pulmonary disease): Plan: Continue home inhalers (6) Insomnia: Plan: Mirtazapine, melatonin at bedtime (7) (HFpEF) heart failure with preserved ejection fraction: Plan: Hold diuretics for now (as above) Last echo on 01/27/2023 revealed LVEF at 55-60% (8) 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 q6h while inpatient Do not elevate above this point Plan Disposition: Admit to [facility] telemetry Full code AHA diet VTE PPx: Heparin 5000u SQ q12h Admission and Anticipated Discharge Date Admission Date: July 12, 2023 Subjective reports no fever, no chills, SOB is better Review of Systems Review of Systems: All systems reviewed & are unremarkable except as noted in Subjective Physical Exam Physical Exam: head is atraumatic, normocephalic neck supple, no JVD chest decreased breath sounds heart S1S2 regular abdomen soft, NT, ND, BS present extremities no edema neuro AAO times 3 Results & Data Results & Data Vital Signs (Past 12 Hours) Vital Signs Temp Pulse Pulse Resp BP Pulse Ox O2 Del Method 07/13/23 15:36 66 07/13/23 15:21 36.7 C 66 16 136/56 L 100 Nasal Cannula 07/13/23 13:32 86 16 Nasal Cannula 07/13/23 11:14 36.7 C 67 18 150/67 H 99 Nasal Cannula 07/13/23 08:40 Nasal Cannula 07/13/23 08:30 64 07/13/23 07:44 58 L 18 94 Nasal Cannula 07/13/23 07:17 36.7 C 60 18 179/62 H 94 Nasal Cannula 07/13/23 07:08 57 L O2 Flow Rate 07/13/23 15:36 07/13/23 15:21 2 07/13/23 13:32 96 07/13/23 11:14 2 07/13/23 08:40 2 07/13/23 08:30 07/13/23 07:44 2 07/13/23 07:17 2 07/13/23 07:08 PG Care Time/CCT Total # of Minutes Spent Total Time Spent with Patient: Total time spent is greater than 50% in coordination of care (as documented) at patient's floor/unit and/or counseling patient: Coding Level of Care Code 66325 SUB INP/OBS CARE 2/35MIN Diagnoses Left lower lobe pneumonia J18.9 BRITTNEY (acute kidney injury) N17.9 Malnutrition E46 Elevated troponin R77.8 Pulmonary emphysema, unspecified emphysema type J43.9 COPD type: emphysema Emphysema type: unspecified Insomnia G47.00 Heart failure with preserved ejection fraction, unspecified HF chronicity I50.30 Heart failure chronicity: unspecified [facility] prescription opiate use Z79.891 (5) COPD (chronic obstructive pulmonary disease) COPD type: emphysema Emphysema type: unspecified Qualified Code(s): J43.9 - Emphysema, unspecified (7) (HFpEF) heart failure with preserved ejection fraction Heart failure chronicity: unspecified Qualified Code(s): I50.30 - Unspecified diastolic (congestive) heart failure
[2023-07-14 07:19] LABS: Basophils # (auto) 0.03 K/uL (0.00-0.20); Basophils % (auto) 0.2 %; Eosinophils # (auto) 0.01 K/uL (0.00-0.50); Eosinophils % (auto) 0.1 %; Hematocrit (blood only) 39.6 % (37.0-47.0); Immature Granulocytes # (auto) 0.13 K/uL (0.01-0.20); Immature Granulocytes % (auto) 0.8 %; Lymphocytes # (auto) 2.12 K/uL (1.20-3.40); Lymphocytes % (auto) 12.5 %; Mean Corpuscular Hemoglobin 28.9 pg (25.0-34.0); Mean Corpuscular Hgb Conc 32.8 g/dL (32.0-36.0); Mean Platelet Volume 10.2 fL (9.4-12.4); Monocytes # (auto) 1.13 K/uL (0.11-0.59); Monocytes % (auto) 6.7 %; Neutrophils # (auto) 13.55 K/uL (1.40-6.50); Neutrophils % (auto) 79.7 %; Platelet Count 267 K/uL (130-400); RDW Coefficient of Variation 14.6 % (11.5-14.5); RDW Standard Deviation 46.5 fL (36.4-46.3); White Blood Count 16.97 K/ul (4.8-10.8)
[2023-07-14 07:55] LABS: BUN Creatinine Ratio 23.6 (10-20); Calcium 9.2 mg/dl (8.6-10.3); Creatinine Clr Calc Pharmacy 25.6 ml/min; Est GFR (African American) 52.4 ml/min; Est GFR (Non-African American) 45.2 ml/min; Potassium 4.3 mmol/L (3.5-5.1)
--- NOTE | 2023-07-14 12:17 | Discharge Summary ---
Date of Service July 14, 2023 Admission HPI Per Admitting Provider Jennifer is a pleasant 63-year-old female with PMH of COPD, NSTEMI, CAD, s/p mitral valve replacement, aortic regurg, paroxysmal SVT, opioid dependence, HFpEF, HTN, severe proteincalorie malnutrition, TIA, and sepsis. She presented for SOB at rest, productive cough, and hypoxia around 80-85% on 07/11. Patient was 77% on RA at ED arrival. Patient recently finished a course of antibiotics for bronchitis prescribed on 07/03 (doxycycline 100 mg twice daily x 7 days, Augmentin [id number] twice daily x 7 days, and a prednisone 6-day taper starting at 60mg). Patient reports that she wears 2L NC at night. She developed a severe, sharp pain intermittently in her left upper rib cage and flank that started the morning of 07/11. No radiation to the back. Worse with deep breaths; pleuritic. She did not take any pain medication for it. She also reports SOB at rest with no alleviating or exacerbating symptoms (such as lying flat). No recent change in medications, and she reports that she took her regular morning medications today. She has had a productive cough (yellow/green sputum production) since her last hospital admission. No hemoptysis. No CPAP at night. No sick contacts. She denies smoking, tobacco use, and alcohol use. Patient is hypertensive at 153/68 at time of admission; SpO2 95% on 2L NC. ED course: Azithromycin 500 mg IV DuoNeb 3 mL Solu-Medrol 125 mg IV Rocephin 1000 mg IV ROS: Patient endorses SOB at rest, pleuritic/left-sided rib CP, productive cough (yellow/green sputum production), and a burning pain in her legs bilaterally. Patient denies fever, chills, night sweats, dizziness, lightheadedness, headache, chest palpitations, hemoptysis, abdominal pain, N/V/D, or urinary symptoms. Principal Diagnosis pneumonia, bacterial Discharge Exam head is atraumatic, normocephalic neck supple, no JVD chest decreased breath sounds heart S1S2 regular abdomen soft, NT, ND, BS present extremities no edema neuro AAO times 3 Discharge Data Allergies Allergy/AdvReac Type Severity Reaction Status Date / Time aspirin Allergy Intermediate Hives Verified 07/11/23 15:03 hydrochlorothiazide Allergy Intermediate RASH/"Sick Verified 07/11/23 15:03 in stomach" trazodone AdvReac Severe Vomiting Verified 07/11/23 15:03 tramadol AdvReac Mild Nausea Verified 07/11/23 15:03 Consultations 07/12/23 15:19 ED Decision to Admit Stat Hospital Course (1) Left lower lobe pneumonia: Hypoxia in the 80-85% range on RA when checked on by home health nurse on 07/11; patient also endorses productive cough Leukocytosis at 20.10 with a neutrophil predominance; in the setting of recent steroid taper prescribed on 07/03 Patient recently finished a 7-day course of doxycycline and Augmentin Patient wears supplemental oxygen 2L NC at night CXR revealed airspace consolidation suggestive of left lower lobe pneumonia; advanced emphysema COVID-negative MRSA swab ordered, pending Sputum culture ordered, pending Flutter valve, incentive spirometry Guaifenesin 1200 mg p.o. BID Rocephin 1000 mg IV q24h Will switch azithromycin to doxycycline 100 mg IV twice daily given QTc 497 DuoNeb 3 mL q6r for wheezing Sodium chloride 7% neb solution BIDR Supplemental oxygen to maintain SpO2 >89%; titrate for COPD Continuous pulse oximetry will discharge home with po antibiotics (2) BRITTNEY (acute kidney injury): Creatinine 1.41 on arrival with unclear baseline (likely 0.97); drug Cr Cl <30 Hold lisinopril, Lasix, spironolactone for now Encourage oral fluids monitor BMP will continue holding Aldactone on discharge due to hyperkalemia, po intake has improved (3) Malnutrition: Dietitian consulted [facility] diet (4) Elevated troponin: Elevated troponin at 14.1 on arrival, repeat pending Continuous telemetry monitoring (5) COPD (chronic obstructive pulmonary disease): Continue home inhalers (6) Insomnia: Mirtazapine, melatonin at bedtime (7) (HFpEF) heart failure with preserved ejection fraction: Hold diuretics for now (as above) Last echo on 01/27/2023 revealed LVEF at 55-60% (8) lobsterman prescription opiate use: Patient reports burning in her legs/restless leg syndrome when she misses doses of oxycodone 5 mg q6h Can continue home dose of oxycodone 5 mg p.o. q6h while inpatient Do not elevate above this point (9) Chronic respiratory failure with hypoxia: chronic oxygen use, end stage COPD/emphysema continue oxygen suppl , has home oxygen Plan Disposition: Admit to MedSurg telemetry Full code AHA diet VTE PPx: Heparin 5000u SQ q12h Total Time Total Time Spent Total Time Spent (In Minutes): 35 min Discharge Plan Discharge Items Patient Disposition: Home - Self-Care Reason For Visit: HYPOXIA, PNA Discharge Diagnosis: pneumonia Activity: Resume your previous activity Non-emergency contact: Primary Care Provider and Motorcycle Tester Call non-emergency contact if: your symptoms worsen Follow-up/Referrals: Barrington Joshi MD [Primary Care Provider] - 07/24/23 2:00 pm Diet: Carb Consistent or DM2 Addtl Attending Provider Instructions: follow up with user support analyst supervisor in 1-2 weeks, PCP in 1 week Pending Studies at Discharge: No Stand-Alone Forms: My [employer], Smoking Cessation Medications and DC Order Prescriptions: New cefuroxime axetil 250 mg tablet 250 mg PO BID 5 Days Qty: 10 0RF prednisone 20 mg tablet 40 mg PO DAILY 5 Days Qty: 10 0RF doxycycline hyclate 100 mg capsule 100 mg PO DAILY Qty: 10 0RF Continued atorvastatin 40 mg tablet 40 mg PO QPM Qty: 90 3RF clopidogrel 75 mg tablet 75 mg PO QPM Qty: 90 3RF cyanocobalamin (vitamin B-12) 1,000 mcg tablet 1,000 mcg PO QAM Qty: 90 3RF folic acid 1 mg tablet 1 mg PO QAM Qty: 90 3RF furosemide [Lasix] 20 mg tablet 20 mg PO QAM Qty: 90 3RF metoprolol succinate 25 mg tablet extended release 24 hr 12.5 mg PO DAILY Qty: 45 3RF montelukast 10 mg tablet 10 mg PO QAM Qty: 90 3RF amiodarone 200 mg tablet 200 mg PO QAM Qty: 90 3RF Trelegy Ellipta 200-62.5-25 mcg blister with device 1 inh inhalation DAILY Qty: 60 5RF sodium chloride 7 % solution for nebulization 4 ml NEB BIDR Qty: 240 0RF magnesium oxide [MagOx] 400 mg (241.3 mg magnesium) tablet 400 mg PO BID Qty: 180 3RF oxycodone 5 mg tablet 5 mg PO Q6H PRN (Reason: pain) Qty: 100 0RF pantoprazole 40 mg tablet,delayed release (DR/EC) 40 mg PO DAILY Qty: 90 3RF lisinopril 2.5 mg tablet 2.5 mg PO QAM Qty: 90 3RF cholecalciferol (vitamin D3) [Vitamin D3] 50 mcg (2,000 unit) tablet 4,000 unit PO QAM Qty: 90 3RF ipratropium-albuterol 0.5 mg-3 mg(2.5 mg base)/3 mL solution for nebulization 3 ml NEB QID PRN (Reason: shortness of breath or wheezing) mirtazapine 15 mg tablet 15 mg PO HS Discontinued spironolactone 25 mg tablet 25 mg PO QAM Qty: 90 3RF No Action (DME) nebulizers Misc See Rx Instructions .Route Qty: 1 0RF Rx Instructions: Use with albuterol and saline nebulizer solution as directed (DME) nebulizer accessories Misc See Rx Instructions .Route Qty: 5 3RF Rx Instructions: TUBING AND ADULT ADMINISTRATION DEVICE/MASK (DME) Wheeled Walker Misc See Rx Instructions .Route Qty: 1 0RF Rx Instructions: As directed Discharge Orders: Discharge Order (Routine); Ordered 07/14/23 Ordered By: Kylee Shine Admission Data Admit Date/Time: 07/12/23 16:28 Attending Provider: Kylee Shine Admit Provider: Jason Upton Primary Care Provider: Barrington Joshi Other Providers: Jason Upton; Reed Lindo [facility] Other Interventions: Discharge Summary Assessment (RN) Last Done: 07/14/23 11:56 Coding Level of Care Code 72885 INP/OBS DISCH >30 MIN Diagnoses Left lower lobe pneumonia J18.9 BRITTNEY (acute kidney injury) N17.9 Malnutrition E46 Elevated troponin R77.8 Pulmonary emphysema, unspecified emphysema type J43.9 COPD type: emphysema Emphysema type: unspecified Insomnia G47.00 Heart failure with preserved ejection fraction, unspecified HF chronicity I50.30 Heart failure chronicity: unspecified long-term prescription opiate use Z79.891 Chronic respiratory failure with hypoxia J96.11
--- NOTE | 2023-07-15 06:05 | Electrocardiogram Report ---
Test Reason : Blood Pressure : / mmHG Vent. Rate : 072 BPM Atrial Rate : 072 BPM P-R Int : 154 ms QRS Dur : 098 ms QT Int : 454 ms P-R-T Axes : 059 076 064 degrees QTc Int : 497 ms Normal sinus rhythm Possible Left atrial enlargement Left ventricular hypertrophy Nonspecific ST abnormality Prolonged QT Abnormal ECG When compared with ECG of 01-JUN-2023 15:56, FL interval has decreased T wave inversion no longer evident in Inferior leads T wave inversion less evident in Anterior leads QT has shortened Confirmed by Baldomero Castro ([id number]) on 07/15/2023 6:05:47 AM Referred By: REFERRED SELF Confirmed By:Baldomero Castro
== END 2023-07-14 12:52 | disposition home health service (06) | DRG 194 ==
LOC: ED 13:01 → EDINP 16:28 → SUATTDRO 16:28 → 2N 22:32

== ENCOUNTER 2024-06-04 12:36 | Inpatient (IN) ==
--- NOTE | 2024-06-04 13:21 | Emergency Department Note ---
Impression & Plan Acute dyspnea, Hypomagnesemia, Acute CHF, Pulmonary edema, Acute hypoxemic respiratory failure, Elevated brain natriuretic peptide (BNP) level, Pleural effusion on left, Nausea & vomiting, Pancolitis ED Provider Note HISTORY OF PRESENT ILLNESS: Patient is a 63-year-old female presenting with nausea and vomiting. Patient reports that for the last 2 weeks she has been having significant difficulties eating or drinking anything by mouth. States that when she eats or drinks something, shortly after she starts vomiting. Reports that "when I go through the motions to eat or drink, I immediately start gagging." Denies any diarrhea. Reports normal bowel movements. Reports significant weight loss over the last 2 weeks. States that today she was told that her lips and fingers were blue while walking on her 2 L nasal cannula. Patient is on Plavix for history of open heart surgery. Denies any fevers or chills. Denies any DVT or PE history. Denies any lightheadedness or dizziness. Denies any chest pain. Denies any dysuria or hematuria. Denies any recent sick contact exposures. Patient also reports that she has been having lower extremity edema that is progressively worsening over the last few days. ROS: as above PHYSICAL EXAM: Constitutional: Patient appears in no acute distress. Cachectic appearing HENT: Head: Normocephalic and atraumatic. Eyes: EOMI, PERRL Mouth/Throat: Mucous membranes moist. Neck: Trachea midline. Neck supple. Cardiovascular: RRR, No murmurs, rubs or gallops. Intact distal pulses. Pulmonary/Chest: No respiratory distress. Breath sounds clear and equal bilaterally. Decreased breath sounds on left lung base. Abdominal: Abdomen soft, no tenderness, rebound or guarding. Musculoskeletal: No tenderness or deformity noted. +1 pitting edema of bilateral lower extremities extending to mid-tibias Skin: Warm and dry. No rash, erythema, pallor or cyanosis Psychiatric: Appropriate mood and affect for situation. Neurological: Alert and keenly responsive. CN II-XII grossly intact, moving all extremities equally and fully. MDM: - Vitals signs showed hypertension and tachycardia. - History obtained via patient. History as above. - Chronic conditions affecting care: HLD; anxiety/depression; CHF; CAD; HTN; paroxysmal Afib - Differential diagnoses include, but are not limited to: bowel obstruction; electrolyte abnormality; viral syndrome; ACS; pneumonia; CHF; PE - Order placed for continuous cardiac monitoring. At this time, monitor showed rate of 80 bpm with normal sinus rhythm, per my interpretation. - External medical records reviewed. Primary care visit note dated 05/15/2024 was reviewed. Patient seen in their clinic for ambulatory dysfunction and knee pain. She was prescribed oxycodone and that visit. - EKG interpreted by myself showed normal sinus rhythm. Rate 100 bpm. QT prolonged at 392. No acute ischemic changes. - Laboratory workup interpreted by myself showed normal WBC; elevated INR (1.2); hypomagnesemia (Mg 1.4); elevated troponin (16.5); elevated BNP (1807) - CXR showed left-sided pleural effusion, per my interpretation. - Viral respiratory panel negative - Patient given 1L NS and 1g IV magnesium in ER. - Patient complaining of chronic knee pain in ER and asking for her prescribed 5 mg oxycodone, which was ordered. - CT PE negative for PE. However, noted to have pleural effusions and interstitial pulmonary edema. - CT abdomen/pelvis with IV contrast noted diffuse, prominent wall thickening of the large bowel compatible with pancolitis. Also noted to have some heterogeneous enhancement of the liver concerning for potential congestive hepatopathy - Patient given 60 mg IV lasix in ER. - Discussion was had with case checker about patient's case and need for admission - Hospitalist consulted for admission - Patient admitted to [facility] service for further evaluation and management. ASSESSMENT AND PLAN: Diagnosis: acute dyspnea; acute CHF exacerbation; elevated troponin; pulmonary edema; acute hypoxia; hypomagnesemia; elevated BNP; pleural effusion on left; nausea and vomiting; pancolitis Plan: admit Past Med/Surg History Problem List (Updated 06/04/24 @ 16:35 by Edna Campbell MD) Pancolitis (Acute) Nausea & vomiting (Acute) Pleural effusion on left (Acute) Elevated brain natriuretic peptide (BNP) level (Acute) Acute hypoxemic respiratory failure (Acute) Pulmonary edema (Acute) Acute CHF (Acute) Hypomagnesemia (Acute) Acute dyspnea (Acute) Ambulatory dysfunction CVA (cerebral vascular accident) Subacute ischemia on MRI02/23/2024-[facility] Closed rib fracture (Acute ~10/16/23) acute fractures of the right posterior 8th and 9th ribs. Note that both ribs are fractured at 2 sites. Allergic rhinitis URI (upper respiratory infection) Hypothyroidism due to amiodarone History of recent pneumonia Chronic respiratory failure with hypoxia Pneumonia (Acute) Opiate abuse, continuous (Acute) BRITTNEY (acute kidney injury) Paroxysmal atrial flutter Abnormal CT scan, chest Atrial flutter with rapid ventricular response meterman prescription opiate use Chronic anticoagulation Paroxysmal atrial fibrillation Pneumonia (Acute) Cervicalgia (HFpEF) heart failure with preserved ejection fraction Collapse of left lung Elevated INR Atelectasis Abnormal EKG History of aortic valve repair NSVT (nonsustained ventricular tachycardia) Severe sepsis Malnutrition Elevated troponin COPD (chronic obstructive pulmonary disease) (Acute) Acute dehydration (Acute) Non-ST elevation MD (NSTEMI) (Acute) Hypomagnesemia (Acute) Positive colorectal cancer screening using Cologuard test per pt reason for scheduled colonoscopy Back pain Hypokalemia Asthma Bronchitis Emphysema lung Gallbladder problem Encounter for pre-operative examination Tobacco dependence Opioid dependence Abnormal diffusion capacity determined by pulmonary function test Personal history of nicotine dependence H/O stroke without residual deficits Anemia Vitamin D deficiency (Acute) Vitamin B12 deficiency (Acute) Restless legs syndrome (Acute) Raynauds disease (Acute) Paroxysmal SVT (supraventricular tachycardia) (Acute) Neuropathy (Acute) Low back pain (Acute) Insomnia (Acute) Congestive heart failure (Acute) Chronic pain (Acute) Cervical radiculopathy at C8 (Acute) Aortic regurgitation (Acute) Sore throat Cough Folate deficiency TIA (transient ischemic attack) Palpitations Tendinitis of left rotator cuff Cervical radicular pain Cardiomyopathy Vomiting Nausea and vomiting Low BMI Bilateral edema of lower extremity (Acute) Severe protein-calorie malnutrition Hypoxia (Acute) Dizziness (Acute) Acute respiratory failure with hypoxia Hypokalemia Acute on chronic diastolic CHF (congestive heart failure) recent diagnosis 01/07/23 at [facility]--pt states she is improving History of nicotine dependence Chronic dyspnea oxygen prn Diastolic CHF Hx laparoscopic cholecystectomy (01/13/21) Laparoscopic Cholecystectomy Dr. Pulido 01-13-2021 Cholecystitis Pulmonary hypertension S/P mitral valve replacement with bioprosthetic valve 2005 Osteoporosis CAD (coronary artery disease) Hypertension Medical History Atrial flutter Hypoglycemia Acute hyperkalemia Sepsis Hyperkalemia Flu Sepsis Elevated troponin I level Acute respiratory failure with hypoxia and hypercapnia Positive colorectal cancer screening using Cologuard test On anticoagulant therapy Chronic combined systolic (congestive) and diastolic (congestive) heart failure Bilateral pleural effusion Mitral valve disease History of aortic valve disease Chronic back pain Arthritis Hyperlipidemia Ischemic stroke Emphysema/COPD Fibromyalgia Peripheral neuropathy GERD (gastroesophageal reflux disease) Depression Anxiety Transient ischemic attack (TIA) Hyperlipidemia On home oxygen therapy Surgical History History of esophagogastroduodenoscopy (EGD) History of colonoscopy History of heart valve replacement History of lung biopsy History of bronchoscopy H/O: hysterectomy Family History Mother Slow to wake up after anesthesia Sister Family history of diabetes mellitus Father Stroke Osteoarthritis Other Coronary heart disease Denies family history of Ovarian cancer Prostate cancer Breast cancer Colorectal cancer Social History (Updated 05/16/24 @ 09:49 by RENAE Dhaliwal) Smoking Status: Former smoker Tobacco Type: Cigarettes Age Started Using Tobacco: 18; Age Quit Using Tobacco: 59; packs per day: 0.5; Second Hand Exposure: Yes (FAMILY SMOKED); Do You Dip or Chew Tobacco: No; Hx Alcohol Use: No Hx Substance Use: No Preferred Language: Divehi Communication Ability: Effective Hearing Ability: Normal Activity Therapy Teacher Required: Yes Beliefs That Will Affect Care: None marital status: Current Living Situation: Spouse Current Living Situation Comment: [employer] (boyfriend) current occupational status: unemployed and disabled How many Children do You have: 2 Feels Safe at Home: Yes Childhood Exposure to Second-Hand Smoke: Yes Diet: regular during the past year weight has: decreased > 10 lbs Dental Care, Regularly: No Physical Activity Frequency: 3-4 Times per Week Seatbelt Use: always Sunscreen Use: Yes Assistive Devices: Oxygen - at Night Allergies Allergies Allergy/AdvReac Type Severity Reaction Status Date / Time aspirin Allergy Intermediate Hives Verified 05/16/24 09:45 hydrochlorothiazide Allergy Intermediate RASH/"Sick Verified 05/16/24 09:45 in stomach" trazodone AdvReac Severe Vomiting Verified 05/16/24 09:45 furosemide AdvReac Intermediate ELEVATED Verified 05/16/24 09:45 CREATINE tramadol AdvReac Mild Nausea Verified 05/16/24 09:45 Home Meds Home Medications Medication Instructions Recorded Confirmed ipratropium 0.5 mg-albuterol 3 mg 3 ml NEB QID PRN shortness of 02/07/23 05/16/24 (2.5 mg base)/3 mL nebulization breath or wheezing soln Oxygen Home 02/26/24 05/16/24 gabapentin 300 mg capsule 300 mg PO DAILY 02/26/24 05/16/24 Previous Rx's Medication Instructions Recorded nebulizer accessories #5 ea 02/13/23 nebulizers #1 ea 02/13/23 Wheeled Walker #1 ea 02/22/23 folic acid 1 mg tablet 1 mg PO QAM #90 tabs 02/22/23 fluticasone fur. 200 mcg-umeclid 1 inh inhalation DAILY #60 ea 03/06/23 62.5 mcg-vilant 25 mcg inhalat.powder (Trelegy Ellipta) sodium chloride 7 % for 4 ml NEB BIDR #240 mL 05/11/23 nebulization lisinopril 2.5 mg tablet 2.5 mg PO QAM #90 tabs 06/21/23 cyanocobalamin (vitamin B-12) 1,000 mcg PO QAM #90 tabs 07/14/23 1,000 mcg tablet cholecalciferol (vitamin D3) 50 4,000 unit PO QAM 90 days #180 tabs 08/18/23 mcg (2,000 unit) tablet (Vitamin D3) magnesium oxide 400 mg (241.3 mg 400 mg PO BID #180 tabs 08/29/23 magnesium) tablet (MagOx) spironolactone 25 mg tablet 25 mg PO DAILY #90 tabs 11/07/23 atorvastatin 40 mg tablet 40 mg PO QPM #90 tabs 02/23/24 clopidogrel 75 mg tablet 75 mg PO QPM #90 tabs 02/28/24 montelukast 10 mg tablet 10 mg PO QAM #90 tabs 02/29/24 abaloparatide (Tymlos) 80 mcg (0.04 mL) subcut DAILY 03/04/24 #1.56 mL metoprolol succinate 25 mg 12.5 mg (1/2 x 25 mg) PO DAILY #45 03/04/24 tablet,extended release 24 hr tabs pen needle, diabetic 32 gauge x #100 ea 03/05/24" (BD Aruna 2nd Gen Pen Needle) amiodarone 200 mg tablet 200 mg PO QAM #90 tabs 03/27/24 levothyroxine 175 mcg tablet 175 mcg PO DAILY #30 tabs 04/29/24 magnesium oxide 400 mg (241.3 mg 400 mg PO DAILY #30 tabs 04/30/24 magnesium) tablet potassium chloride 20 mEq 20 meq PO BID #14 tabs 04/30/24 tablet,extended release levetiracetam 500 mg tablet 500 mg PO BID 90 days #180 tabs 05/10/24 (Keppra) pantoprazole 40 mg tablet,delayed 40 mg PO DAILY #90 tabs 05/28/24 release mirtazapine 15 mg tablet 15 mg PO HS #90 tabs 05/30/24 oxycodone 5 mg tablet 5 mg PO Q4H PRN pain #120 tabs 06/04/24 Results & Data (ED) Vital Signs Vital Signs - 24 hr 06/04/24 12:45 06/04/24 12:46 06/04/24 12:51 Temperature 36.9 C Temperature Source Oral Pulse Rate 102 H 99 H 105 H Pulse Rate from SpO2 Sensor Pulse Rhythm Respiratory Rate 16 20 Respiratory Effort / Characteristics Non-Labored Spontaneous Respiratory Depth Normal Respiratory Pattern Regular Blood Pressure 164/138 H 181/89 H Blood Pressure Mean 146 119 Blood Pressure Position Sitting Pulse Oximetry 87 L 94 Oxygen Delivery Method Nasal Cannula Room Air Oxygen Flow Rate 4 Sepsis Recent Fever Within 48 Hours No Sepsis New/Unexplained Change in Mental Status No Sepsis Action Taken by Nursing No Action Required 06/04/24 12:57 06/04/24 13:30 06/04/24 13:33 Temperature Temperature Source Pulse Rate 93 H 90 87 Pulse Rate from SpO2 Sensor 95 H 85 Pulse Rhythm Regular Respiratory Rate 16 18 Respiratory Effort / Characteristics Respiratory Depth Respiratory Pattern Blood Pressure 181/84 H 185/82 H Blood Pressure Mean 116 116 Blood Pressure Position Pulse Oximetry 95 95 96 Oxygen Delivery Method Nasal Cannula Nasal Cannula Nasal Cannula Oxygen Flow Rate 5 6 5 Sepsis Recent Fever Within 48 Hours Sepsis New/Unexplained Change in Mental Status Sepsis Action Taken by Nursing 06/04/24 13:57 06/04/24 14:30 06/04/24 15:03 Temperature Temperature Source Pulse Rate 85 79 81 Pulse Rate from SpO2 Sensor 83 76 Pulse Rhythm Respiratory Rate 12 14 20 Respiratory Effort / Characteristics Respiratory Depth Respiratory Pattern Blood Pressure 184/108 H 153/78 H 175/81 H Blood Pressure Mean 133 103 112 Blood Pressure Position Pulse Oximetry 98 96 93 Oxygen Delivery Method Nasal Cannula Nasal Cannula Nasal Cannula Oxygen Flow Rate 5 5 5 Sepsis Recent Fever Within 48 Hours Sepsis New/Unexplained Change in Mental Status Sepsis Action Taken by Nursing Laboratory Data 06/04/24 14:20 06/04/24 13:00 Lab Results 06/04/24 06/04/24 06/04/24 Range/Units 13:00 14:20 15:40 WBC Cancelled 9.99 RBC Cancelled 5.91 H Hgb Cancelled 12.5 Hct Cancelled 42.9 MCV Cancelled 72.6 L MCH Cancelled 21.2 L MCHC Cancelled 29.1 L RDW Std Deviation Cancelled 49.2 H RDW Coeff of Claudette Cancelled 20.3 H Plt Count Cancelled 220 MPV Cancelled 10.2 Immature Gran % (Auto) Cancelled 0.5 Neut % (Auto) Cancelled 80.9 Lymph % (Auto) Cancelled 8.6 [place] % (Auto) Cancelled 9.6 Eos % (Auto) Cancelled 0.0 Baso % (Auto) Cancelled 0.4 Neut # (Auto) Cancelled 8.08 H Lymph # (Auto) Cancelled 0.86 L [place] # (Auto) Cancelled 0.96 H Eos # (Auto) Cancelled 0.00 Baso # (Auto) Cancelled 0.04 Immature Gran # (Auto) Cancelled 0.05 Absolute Nucleated RBC Cancelled Nucleated RBC % (auto) Cancelled Neutrophils % (Manual) Cancelled Band Neutrophils % Cancelled Lymphocytes % (Manual) Cancelled Prolymphocyte % Cancelled Reactive Lymphs % (Man) Cancelled Monocytes % (Manual) Cancelled Eosinophils % (Manual) Cancelled Basophils % (Manual) Cancelled Metamyelocytes % (Man) Cancelled Myelocytes % (Man) Cancelled Promyelocytes % (Man) Cancelled Blast Cells % (Manual) Cancelled Plasma Cell % (Manual) Cancelled Other Cells % Cancelled Nucleated RBC % Cancelled Neutrophils # (Manual) Cancelled Band Neutrophils # Cancelled Total Absolute Neuts Cancelled Lymphocytes # (Manual) Cancelled Prolymphocyte # Cancelled Reactive Lymphs # Cancelled Total Abs Lymphocytes Cancelled Monocytes # (Manual) Cancelled Eosinophils # (Manual) Cancelled Basophils # (Manual) Cancelled Metamyelocytes # (Man) Cancelled Myelocytes # (Manual) Cancelled Promyelocytes # (Man) Cancelled Blast Cells # (Man) Cancelled Plasma Cell # (Manual) Cancelled Other Cells # Cancelled Nucleated RBCs # (Man) Cancelled Hypersegmented Neuts Cancelled Hyposegmented Neuts Cancelled Hypogranular Neuts Cancelled Large Granular Lymphs Cancelled # Lrg Granular Lymphs Cancelled Hairy Cells Cancelled Smudge Cells Cancelled Toxic Granulation Cancelled Toxic Vacuolation Cancelled Dohle Bodies Cancelled Jane Rods Cancelled Platelet Estimate Cancelled Hypogranular Platelets Cancelled Giant Platelets Cancelled Platelet Satelliting Cancelled RBC Morphology Cancelled Polychromasia Cancelled Hypochromasia Cancelled Poikilocytosis Cancelled Basophilic Stippling Cancelled Anisocytosis Cancelled Present Microcytosis Cancelled Macrocytosis Cancelled Spherocytes Cancelled Pappenheimer Bodies Cancelled Sickle Cells Cancelled Target Cells Cancelled 1+ Tear Drop Cells Cancelled Ovalocytes Cancelled 1+ Stomatocytes Cancelled [place] Bodies Cancelled Echinocytes Cancelled 1+ Acanthocytes (Spur) Cancelled Rouleaux Cancelled RBC Agglutinates Cancelled Schistocytes Cancelled Sezary Cell Cancelled PT 13.0 H (9.0-12.0) Seconds INR 1.2 H (0.9-1.1) Sodium 138 (136-145) mmol/L Potassium 4.0 (3.5-5.1) mmol/L Chloride 97 L (98-107) mmol/L Carbon Dioxide 33 H (21-32) mmol/L Anion Gap 8 (3-11) BUN 18 (6-23) mg/dl Creatinine 1.05 (0.6-1.2) mg/dl Est Cr Clr Drug Dosing 36.4 ml/min eGFR 59.70 BUN/Creatinine Ratio 17.1 (10-20) Glucose 107 H (70-99(Fasting)) mg/dl Calcium 8.7 (8.6-10.3) mg/dl Magnesium 1.4 L (1.7-2.4) mg/dl Total Bilirubin 0.8 (0.2-1.0) mg/dl AST 21 (13-39) U/L ALT 10 (7-52) U/L Alkaline Phosphatase 151 H (34-104) U/L Troponin I High Sens 16.5 H (0-14) pg/ml B-Natriuretic Peptide 1807 H (0-100) pg/ml Total Protein 6.5 (6.0-8.3) gm/dl Albumin 3.4 (3.4-5.0) gm/dl Globulin 3.1 (2.5-4.0) gm/dl Albumin/Globulin Ratio 1.1 (0.9-2) Lipase 18 (11-82) U/L Urine Color Yellow Urine Appearance Clear (Clear) Urine pH 5.5 (4.5-7.5) Ur Specific [place] 1.022 (1.000-1.030) Urine Protein 1+ H (Negative) Urine Glucose (UA) Negative (Negative) Urine Ketones Trace H (Negative) Urine Blood Negative (Negative) Urine Nitrite Negative (Negative) Urine Bilirubin Negative (Negative) Urine Urobilinogen Negative (Negative) Ur Leukocyte Esterase Negative (Negative) Urine WBC (Auto) 0-5 (0-5) /hpf Urine RBC (Auto) 0-2 (0-2) /hpf U Hyaline Cast (Auto) 0-2 (0-2) /lpf U Epithel Cells (Auto) 0-2 (0-2) /hpf Urine Bacteria (Auto) None Seen (None Seen) Adenovirus (PCR) Not Detected (NotDetected) B. pertussis DNA (PCR) Not Detected (NotDetected) B.parapertussis DNA PCR Not Detected (NotDetected) C. pneumoniae DNA (PCR) Not Detected (NotDetected) Coronavirus OC43 (PCR) Not Detected (NotDetected) Coronavirus HKU1 (PCR) Not Detected (NotDetected) Coronavirus 229E (PCR) Not Detected (NotDetected) SARS-CoV-2 (PCR) Not Detected (NotDetected) Coronavirus NL63 (PCR) Not Detected (NotDetected) Human Metapneumovir PCR Not Detected (NotDetected) Influenza Type A (PCR) Not Detected (NotDetected) Influenza Type B (PCR) Not Detected (NotDetected) M. pneumoniae (PCR) Not Detected (NotDetected) Parainfluenza 1 (PCR) Not Detected (NotDetected) Parainfluenza 2 (PCR) Not Detected (NotDetected) Parainfluenza 3 (PCR) Not Detected (NotDetected) Parainfluenza 4 (PCR) Not Detected (NotDetected) RSV (PCR) Not Detected (NotDetected) Entero/Rhino (PCR) Not Detected (NotDetected) Blood Parasites ID Cancelled Administered Medications Discontinued Medications Sodium Chloride (Nss) 1,000 mls @ 999 mls/hr IV .Q1H1M ONE Stop: 06/04/24 14:17 Last Infusion: 06/04/24 15:13 Dose: Infused Documented By: Admin: 06/04/24 13:41 Dose: 999 mls/hr Documented By: Magnesium Sulfate/Dextrose (Magnesium Sulfate / D5w) 1 gm in 100 mls @ 100 mls/hr IV NOW STA Stop: 06/04/24 15:26 Last Admin: 06/04/24 15:32 Dose: 100 mls/hr Documented By: Ioversol (Optiray 320 125ml) 119 ml IV ONCE ONE Stop: 06/04/24 16:00 Last Admin: 06/04/24 15:59 Dose: 119 ml Documented By: KIERRA Imaging Data Radiologist's Impression: Chest X-Ray 06/04/24 13:17 XR chest 1V portable CLINICAL HISTORY: dyspnea COMPARISON STUDY: 10/30/2023 FINDINGS: Stable CABG. There is increased cardiomegaly and pulmonary vascular congestion. There is diffuse pulmonary interstitial opacity. Stable trace right pleural effusion. Interval moderate left pleural effusion and associated left lower lung consolidation. No pneumothorax. IMPRESSION: Increased moderate left pleural effusion and associated lower lung consolidation. Otherwise as described. ACT 112: Negative or not required by law. Electronically signed by: Reginaldo Copeland M.D. 06/04/2024 1:42 PM Abdomen/Pelvis CT 06/04/24 15:38 EXAMINATION: CT of the abdomen and pelvis performed after the administration of IV contrast TECHNIQUE: Helical CT images from the lung bases through the symphysis pubis were obtained with contrast. Coronal and sagittal reformatted images were generated at a workstation for further assessment. Dose reduction techniques were achieved by using automatic exposure control and/or adjustment of mA and/or kV according to patient size and/or use of iterative reconstruction technique. COMPARISON: None HISTORY: Abdominal pain FINDINGS: Liver: Heterogeneous enhancement pattern of the liver. A small rounded focus of enhancement of the dome of the liver, axial image 36, measures 8 mm. The liver is within normal size limits at approximately 15.8 cm craniocaudal. Portal veins appear patent. Gallbladder: Cholecystectomy. Spleen: Normal size. Pancreas: No suspicious pancreatic lesions. The pancreatic duct is not dilated. Adrenal glands: No adrenal nodules. Kidneys: No hydronephrosis or obstructing renal stones. Bladder / Pelvic organs: Unremarkable. Bowel: No bowel obstruction. Prominent, diffuse wall thickening throughout the large bowel. There is minimal colonic stool. The appendix is unremarkable. Lymph nodes: No retroperitoneal, mesenteric, or pelvic lymphadenopathy. Peritoneum / Retroperitoneum: There is mild ascites. Vessels: No infrarenal aortic aneurysm. Heavy aortoiliac calcification. Bones and soft tissues: No suspicious lesion in the bones. IMPRESSION: Diffuse, prominent wall thickening of the large bowel compatible with pancolitis. Heterogeneous enhancement pattern of the liver, is indeterminate, however favored to be related to congestive hepatopathy in the setting of cardiac dysfunction. A small enhancing focus at the dome of the liver would favor a hemangioma, however given the possibility of underlying intrinsic liver disease, a follow-up MRI is recommended for further evaluation. Electronically signed by Barrington Neves 06-04-2024 4:22 PM Chest CTA 06/04/24 15:38 CT pulmonary angiogram with IV contrast History: Hypoxia COMPARISON: 10/16/2023 TECHNIQUE: CT angiography of the chest was performed without IV contrast followed by IV contrast, including 3D post processing CTA image reconstruction. Dose reduction techniques were achieved by using automatic exposure control and/or adjustment of mA and/or kV according to patient size and/or use of iterative reconstruction technique. FINDINGS: Diagnostic quality: Adequate The heart size is enlarged. There are moderate coronary calcifications. Enlarged pulmonary artery suggesting pulmonary hypertension. There is a moderate left and small right pleural effusion with subjacent compressive atelectasis. Mild diffuse interstitial pulmonary edema. The lungs appear severely emphysematous. No thoracic aortic aneurysm. Mild to moderate aortic calcification. No pathologic appearing lymphadenopathy. Limited visualized upper abdomen. No destructive osseous changes are seen. Multilevel chronic posterior right-sided rib fracture deformities. IMPRESSION: No evidence for pulmonary embolism. Findings of cardiomegaly, pleural effusions, and interstitial pulmonary edema. Severe emphysema. Enlarged pulmonary artery due to pulmonary hypertension. Electronically signed by Barrington Nvees 06-04-2024 4:22 PM Discharge Plan Visit Data Chief Complaint: Illness Stated Complaint: VOMITING ED Provider: Edna Campbell Discharge Problem: Acute dyspnea, Hypomagnesemia, Acute CHF, Pulmonary edema, Acute hypoxemic respiratory failure, Elevated brain natriuretic peptide (BNP) level, Pleural effusion on left, Nausea & vomiting, Pancolitis Forms Stand Alone Forms: [facility] Prescriptions Prescriptions: No Action (DME) nebulizers [facility] [place] See Rx Instructions .Route Qty: 1 0RF Rx Instructions: Use with albuterol and saline nebulizer solution as directed (DME) nebulizer accessories [facility] [place] See Rx Instructions .Route Qty: 5 3RF Rx Instructions: TUBING AND ADULT ADMINISTRATION DEVICE/MASK folic acid 1 mg tablet 1 mg PO QAM Qty: 90 3RF (DME) Wheeled Walker [facility] [place] See Rx Instructions .Route Qty: 1 0RF Rx Instructions: As directed Trelegy Ellipta 200-62.5-25 mcg blister with device 1 inh inhalation DAILY Qty: 60 5RF sodium chloride 7 % solution for nebulization 4 ml NEB BIDR Qty: 240 0RF lisinopril 2.5 mg tablet 2.5 mg PO QAM Qty: 90 3RF cyanocobalamin (vitamin B-12) 1,000 mcg tablet 1,000 mcg PO QAM Qty: 90 3RF cholecalciferol (vitamin D3) [Vitamin D3] 50 mcg (2,000 unit) tablet 4,000 unit PO QAM 90 Days Qty: 180 3RF magnesium oxide [MagOx] 400 mg (241.3 mg magnesium) tablet 400 mg PO BID Qty: 180 3RF spironolactone 25 mg tablet 25 mg PO DAILY Qty: 90 3RF atorvastatin 40 mg tablet 40 mg PO QPM Qty: 90 3RF clopidogrel 75 mg tablet 75 mg PO QPM Qty: 90 3RF montelukast 10 mg tablet 10 mg PO QAM Qty: 90 3RF metoprolol succinate 25 mg tablet extended release 24 hr 12.5 mg PO DAILY Qty: 45 3RF levothyroxine 175 mcg tablet 175 mcg PO DAILY Qty: 30 11RF magnesium oxide 400 mg (241.3 mg magnesium) tablet 400 mg PO DAILY Qty: 30 0RF potassium chloride 20 mEq tablet extended release 20 meq PO BID Qty: 14 0RF levetiracetam [Keppra] 500 mg tablet 500 mg PO BID 90 Days Qty: 180 3RF pantoprazole 40 mg tablet,delayed release (DR/EC) 40 mg PO DAILY Qty: 90 3RF mirtazapine 15 mg tablet 15 mg PO HS Qty: 90 1RF oxycodone 5 mg tablet 5 mg PO Q4H PRN (Reason: pain) Qty: 120 0RF gabapentin 300 mg capsule 300 mg PO DAILY (DME) Oxygen Home Liters Per Minute See Rx Instructions .Route Rx Instructions: 3 L/min at all times as directed amiodarone 200 mg tablet 200 mg PO QAM Qty: 90 3RF Tymlos 80 mcg (3,120 mcg/1.56 mL) pen injector 80 mcg subcut DAILY Qty: 1.56 11RF Rx Instructions: inject into abdomen; do not inject within 2 inches of belly button/navel; rotate sites (DME) pen needle, diabetic [BD Aruna 2nd Gen Pen Needle] 32 gauge x 5/32" needle See Rx Instructions .Route Qty: 100 0RF Rx Instructions: As directed ipratropium-albuterol 0.5 mg-3 mg(2.5 mg base)/3 mL solution for nebulization 3 ml NEB QID PRN (Reason: shortness of breath or wheezing) Referrals Referrals: Barrington Joshi MD [Primary Care Provider] -
[2024-06-04] MEDS: SODIUM CHLORIDE 0.9% 1,000 ML IV ONE (13:41)
--- NOTE | 2024-06-04 13:44 | XRay Report ---
XR chest 1V portable CLINICAL HISTORY: dyspnea COMPARISON STUDY: 10/30/2023 FINDINGS: Stable CABG. There is increased cardiomegaly and pulmonary vascular congestion. There is di ffuse pulmonary interstitial opacity. Stable trace right pleural effusion. Interval moderate left ple ural effusion and associated left lower lung consolidation. No pneumothorax. IMPRESSION: Increased moderate left pleural effusion and associated lower lung consolidation. Otherw ise as described. ACT 112: Negative or not required by law. Electronically signed by: Reginaldo Copeland M.D. 06/04/2024 1:42 PM
[2024-06-04 13:57] LABS: Albumin Level 3.4 gm/dl (3.4-5.0); Bilirubin,Total 0.8 mg/dl (0.2-1.0); Calcium 8.7 mg/dl (8.6-10.3); Magnesium 1.4 mg/dl (1.7-2.4)
[2024-06-04 14:03] LABS: Albumin Globulin Ratio 1.1 (0.9-2); BUN Creatinine Ratio 17.1 (10-20); Creatinine Clr Calc Pharmacy 36.4 ml/min; Globulin 3.1 gm/dl (2.5-4.0); Total Protein 6.5 gm/dl (6.0-8.3)
[2024-06-04 14:08] LABS: Troponin I High Sensitivity 16.5 pg/ml (0-14)
[2024-06-04 14:09] LABS: INR 1.2 (0.9-1.1)
[2024-06-04 14:35] LABS: Adenovirus PCR Not Detected (NotDetected); Bordetella parapertussis PCR Not Detected (NotDetected); Bordetella pertussis PCR Not Detected (NotDetected); Chlamydia pneumoniae PCR Not Detected (NotDetected); Coronavirus 229E PCR Not Detected (NotDetected); Coronavirus CoV-2 (COVID19)PCR Not Detected (NotDetected); Coronavirus HKU1 PCR Not Detected (NotDetected); Coronavirus NL63 PCR Not Detected (NotDetected); Coronavirus OC43PCR Not Detected (NotDetected); Human Metapneumovirus PCR Not Detected (NotDetected); Influenza A PCR Not Detected (NotDetected); Influenza B PCR Not Detected (NotDetected); Mycoplasma pneumoniae PCR Not Detected (NotDetected); Parainfluenza Virus 1 PCR Not Detected (NotDetected); Parainfluenza Virus 2 PCR Not Detected (NotDetected); Parainfluenza Virus 3 PCR Not Detected (NotDetected); Parainfluenza Virus 4 PCR Not Detected (NotDetected); Respiratory Syncytial VirusPCR Not Detected (NotDetected); Rhinovirus/Enterovirus PCR Not Detected (NotDetected)
[2024-06-04 14:48] LABS: Hematocrit (blood only) 42.9 % (37.0-47.0); Hemoglobin 12.5 g/dl (12.0-16.0); Mean Corpuscular Hemoglobin 21.2 pg (25.0-34.0); Mean Corpuscular Hgb Conc 29.1 g/dL (32.0-36.0); Mean Corpuscular Volume 72.6 fL (80.0-100.0); Mean Platelet Volume 10.2 fL (9.4-12.4); Platelet Count 220 K/uL (130-400); RDW Coefficient of Variation 20.3 % (11.5-14.5); RDW Standard Deviation 49.2 fL (36.4-46.3); Red Blood Count 5.91 M/uL (4.20-5.40); White Blood Count 9.99 K/ul (4.8-10.8)
[2024-06-04 15:00] LABS: Anisocytosis Present; Basophils # (auto) 0.04 K/uL (0.00-0.20); Basophils % (auto) 0.4 %; Echinocytes 1+; Immature Granulocytes # (auto) 0.05 K/uL (0.01-0.20); Immature Granulocytes % (auto) 0.5 %; Lymphocytes # (auto) 0.86 K/uL (1.20-3.40); Lymphocytes % (auto) 8.6 %; Monocytes # (auto) 0.96 K/uL (0.11-0.59); Monocytes % (auto) 9.6 %; Neutrophils # (auto) 8.08 K/uL (1.40-6.50); Neutrophils % (auto) 80.9 %; Ovalocytes 1+; Target Cells 1+
--- NOTE | 2024-06-04 15:19 | Electrocardiogram Report ---
Test Reason : Blood Pressure : */* mmHG Vent. Rate : 100 BPM Atrial Rate : 100 BPM P-R Int : 156 ms QRS Dur : 84 ms QT Int : 392 ms P-R-T Axes : 58 41 84 degrees QTcB Int : 505 ms Sinus rhythm with occasional Premature ventricular complexes Left atrial enlargement Prolonged QT Abnormal ECG When compared with ECG of 16-Oct-2023 17:24, Premature ventricular complexes are now Present AL interval has decreased QRS duration has decreased Confirmed by Rajiv De La Rosa ([id number]) on 06/04/2024 3:19:27 PM Referred By: Confirmed By: Rajiv De La Rosa
[2024-06-04] MEDS: MAGNESIUM SULFATE / D5W 1 GM/100 ML BAG IV STA (15:32)
[2024-06-04 15:53] LABS: Appearance Urine Clear (Clear); Bacteria Urine Automated None Seen (None Seen); Bilirubin Urine Negative (Negative); Blood Urine Negative (Negative); Cast Urine Automated 0-2 /lpf (0-2); Color Urine Yellow; Epithelial Cell Urine Auto 0-2 /hpf (0-2); Glucose Urine UA Negative (Negative); Ketones Urine Trace (Negative); Leukocyte Esterase Urine Negative (Negative); Nitrite Urine Negative (Negative); Protein Urine 1+ (Negative); RBC Urine Automated 0-2 /hpf (0-2); Specific Gravity Urine 1.022 (1.000-1.030); Urobilinogen Urine Negative (Negative); WBC Urine Automated 0-5 /hpf (0-5); pH Urine 5.5 (4.5-7.5)
[2024-06-04] MEDS: OPTIRAY 320 125ml IV ONE (15:59)
--- NOTE | 2024-06-04 16:23 | CT Scan Report ---
CT pulmonary angiogram with IV contrast History: Hypoxia COMPARISON: 10/16/2023 TECHNIQUE: CT angiography of the chest was performed without IV contrast followed by IV contrast, including 3D post processing CTA image reconstruction. Dose reduction techniques were achieved by using automatic exposure control and/or adjustment of mA and/or kV according to patient size and/or use of iterative reconstruction technique. FINDINGS: Diagnostic quality: Adequate The heart size is enlarged. There are moderate coronary calcifications. Enlarged pulmonary artery suggesting pulmonary hypertension. There is a moderate left and small right pleural effusion with subjacent compressive atelectasis. Mild diffuse interstitial pulmonary edema. The lungs appear severely emphysematous. No thoracic aortic aneurysm. Mild to moderate aortic calcification. No pathologic appearing lymphadenopathy. Limited visualized upper abdomen. No destructive osseous changes are seen. Multilevel chronic posterior right-sided rib fracture deformities. IMPRESSION: No evidence for pulmonary embolism. Findings of cardiomegaly, pleural effusions, and interstitial pulmonary edema. Severe emphysema. Enlarged pulmonary artery due to pulmonary hypertension. Electronically signed by Barrington Neves 06-04-2024 4:22 PM
--- NOTE | 2024-06-04 16:23 | CT Scan Report ---
EXAMINATION: CT of the abdomen and pelvis performed after the administration of IV contrast TECHNIQUE: Helical CT images from the lung bases through the symphysis pubis were obtained with contrast. Coronal and sagittal reformatted images were generated at a workstation for further assessment. Dose reduction techniques were achieved by using automatic exposure control and/or adjustment of mA and/or kV according to patient size and/or use of iterative reconstruction technique. COMPARISON: None HISTORY: Abdominal pain FINDINGS: Liver: Heterogeneous enhancement pattern of the liver. A small rounded focus of enhancement of the dome of the liver, axial image 36, measures 8 mm. The liver is within normal size limits at approximately 15.8 cm craniocaudal. Portal veins appear patent. Gallbladder: Cholecystectomy. Spleen: Normal size. Pancreas: No suspicious pancreatic lesions. The pancreatic duct is not dilated. Adrenal glands: No adrenal nodules. Kidneys: No hydronephrosis or obstructing renal stones. Bladder / Pelvic organs: Unremarkable. Bowel: No bowel obstruction. Prominent, diffuse wall thickening throughout the large bowel. There is minimal colonic stool. The appendix is unremarkable. Lymph nodes: No retroperitoneal, mesenteric, or pelvic lymphadenopathy. Peritoneum / Retroperitoneum: There is mild ascites. Vessels: No infrarenal aortic aneurysm. Heavy aortoiliac calcification. Bones and soft tissues: No suspicious lesion in the bones. IMPRESSION: Diffuse, prominent wall thickening of the large bowel compatible with pancolitis. Heterogeneous enhancement pattern of the liver, is indeterminate, however favored to be related to congestive hepatopathy in the setting of cardiac dysfunction. A small enhancing focus at the dome of the liver would favor a hemangioma, however given the possibility of underlying intrinsic liver disease, a follow-up MRI is recommended for further evaluation. Electronically signed by Barrington Neves 06-04-2024 4:22 PM
[2024-06-04] MEDS: oxyCODONE HCL IR 5 MG TAB (IMMEDIATE RELEASE) PO STA (16:56)
[2024-06-04] MEDS: FUROSEMIDE 40 MG/4 ML VIAL IV ONE (16:58)
--- NOTE | 2024-06-04 18:28 | History & Physical Report ---
Date of Service June 04, 2024 Assessment & Plan (1) Acute CHF: (2) Hypomagnesemia: (3) Pleural effusion on left: (4) Acute hypoxemic respiratory failure: (5) Chronic anticoagulation: (6) Malnutrition: (7) COPD (chronic obstructive pulmonary disease): Plan Patient is a 64-year-old with h/o COPD, HFrEF, hypothyroidism, ambulatory dysfunction, CVA, and opioid and tobacco use who presents with 2 weeks of poor po intake, LE swelling, and exertional dyspnea. Initial assessment with imaging suggestive of congestive hepatopathy, no evidence of infection, elevated BNP, EKG is without acute ischemic change. Being admitted for management of CHF exacerbation. #HFrEF, Acute on chronic hypoxemic respiratory failure, pleural effusion - Pt w progressive exertional dyspnea for ~2 wk and ankle swelling. Imaging +pulm edema & effusions. No sign of infection; resp biofire negative, CXR showing pulm edema and pl effusions. BNP 1807. Trop at baseline, EKG w/o ischemic changes. Most recent Echo from Jan 2024 with EF 35-40%. - Currently requiring 4L NC vs baseline 2L; decrease as tolerated to maintain SpO2 > 92% - Daily weights, strict I/O, fluid & salt restrictions - 40 mg IV Lasix BID17 - Continue home plavix, ACEI, spironolactone, BB, and statin - Continue amio at reduced (half) dose #Malnutrition - Likely 2/2 congestive hepatopathy - No evidence of infection. No change in bowel habits. - Continue Protonix 40 BID - Famotidine IV BID - Trial of Marinol #COPD - on 2L supplemental O2 at home. h/o smoking, quit 7y ago. - currently requiring 4L NC. no wheezing, good air movement. 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 She starts gagging whenever she tries to eat or drink anything, and what she is able to swallow "comes right back up." She denies any abd pain, hematemesis, dysphagia. She reports normal bowel function, no change in stool color or consistency. No recent illness or sick contacts. No notable inciting event. She noticed her feet/ankles swelling a few days ago and started taking her lasix, which she does not take daily. She feels it did not have any effect. Her urine output is unchanged, no dysuria or change in frequency. She reports taking her medications as prescribed. She has not felt weak or dizzy or had a recent fall. 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 On arrival, she was hypertensive to 181/89 with HR in 100s. Initial labs notable for no leukocytosis, mild elevation in PT & INR, Mg low at 1.4, alk phos of 151, HS-trop 16.5, BNP 1807, and UA with 1+ protein. CXR and chest CTA showing trace R pleural effusion, mod L pleural effusion, LLL consolidation, and pulmonary hypertension. CTAP showing pancolitis. In the ED, she was given 1L NSS, 1g IV magnesium, and 60mg IV lasix. Vitals stabilized, comfortable on 4L NC. Allergies Allergy/AdvReac Type Severity Reaction Status Date / Time aspirin Allergy Intermediate Hives Verified 05/16/24 09:45 hydrochlorothiazide Allergy Intermediate RASH/"Sick Verified 05/16/24 09:45 in stomach" trazodone AdvReac Severe Vomiting Verified 05/16/24 09:45 furosemide AdvReac Intermediate ELEVATED Verified 05/16/24 09:45 CREATINE tramadol AdvReac Mild Nausea Verified 05/16/24 09:45 Home Medications Medication Instructions Recorded Confirmed Type ipratropium 0.5 mg-albuterol 3 mg 3 ml NEB QID PRN shortness of 02/07/23 06/04/24 History (2.5 mg base)/3 mL nebulization breath or wheezing soln nebulizer accessories #5 ea 02/13/23 05/16/24 Rx nebulizers #1 ea 02/13/23 05/16/24 Rx Wheeled Walker #1 ea 02/22/23 05/16/24 Rx folic acid 1 mg tablet 1 mg PO QAM #90 tabs 02/22/23 06/04/24 Rx fluticasone fur. 200 mcg-umeclid 1 inh inhalation DAILY #60 ea 03/06/23 06/04/24 Rx 62.5 mcg-vilant 25 mcg inhalat.powder (Trelegy Ellipta) sodium chloride 7 % for 4 ml NEB BIDR #240 mL 05/11/23 06/04/24 Rx nebulization lisinopril 2.5 mg tablet 2.5 mg PO QAM #90 tabs 06/21/23 06/04/24 Rx cyanocobalamin (vitamin B-12) 1,000 mcg PO QAM #90 tabs 07/14/23 06/04/24 Rx 1,000 mcg tablet cholecalciferol (vitamin D3) 50 4,000 unit PO QAM 90 days #180 tabs 08/18/23 06/04/24 Rx mcg (2,000 unit) tablet (Vitamin D3) spironolactone 25 mg tablet 25 mg PO DAILY #90 tabs 11/07/23 06/04/24 Rx atorvastatin 40 mg tablet 40 mg PO QPM #90 tabs 02/23/24 06/04/24 Rx Oxygen Home 02/26/24 05/16/24 History gabapentin 300 mg capsule 300 mg PO DAILY 02/26/24 06/04/24 History clopidogrel 75 mg tablet 75 mg PO QPM #90 tabs 02/28/24 06/04/24 Rx montelukast 10 mg tablet 10 mg PO QAM #90 tabs 02/29/24 06/04/24 Rx abaloparatide (Tymlos) 80 mcg (0.04 mL) subcut DAILY 03/04/24 06/04/24 Rx #1.56 mL metoprolol succinate 25 mg 12.5 mg (1/2 x 25 mg) PO DAILY #45 03/04/24 06/04/24 Rx tablet,extended release 24 hr tabs pen needle, diabetic 32 gauge x #100 ea 03/05/24 05/16/24 Rx 5/32" (BD Aruna 2nd Gen Pen Needle) amiodarone 200 mg tablet 200 mg PO QAM #90 tabs 11/27/24 02/04/25 Rx levothyroxine 175 mcg tablet 175 mcg PO DAILY #30 tabs 04/29/24 06/04/24 Rx potassium chloride 20 mEq 20 meq PO BID #14 tabs 04/30/24 06/04/24 Rx tablet,extended release levetiracetam 500 mg tablet 500 mg PO BID 90 days #180 tabs 05/10/24 06/04/24 Rx (Keppra) pantoprazole 40 mg tablet,delayed 40 mg PO DAILY #90 tabs 05/28/24 06/04/24 Rx release mirtazapine 15 mg tablet 15 mg PO HS #90 tabs 05/30/24 06/04/24 Rx oxycodone 5 mg tablet 5 mg PO Q4H PRN pain #120 tabs 06/04/24 06/04/24 Rx Past Med/Surg History Problem List (Updated 06/04/24 @ 16:35 by Edna Campbell MD) Pancolitis (Acute) Nausea & vomiting (Acute) Pleural effusion on left (Acute) Elevated brain natriuretic peptide (BNP) level (Acute) Acute hypoxemic respiratory failure (Acute) Pulmonary edema (Acute) Acute CHF (Acute) Hypomagnesemia (Acute) Acute dyspnea (Acute) Ambulatory dysfunction CVA (cerebral vascular accident) Subacute ischemia on MRI02/23/2024-[facility] Closed rib fracture (Acute ~10/16/23) acute fractures of the right posterior 8th and 9th ribs. Note that both ribs are fractured at 2 sites. Allergic rhinitis URI (upper respiratory infection) Hypothyroidism due to amiodarone History of recent pneumonia Chronic respiratory failure with hypoxia Pneumonia (Acute) Opiate abuse, continuous (Acute) BRITTNEY (acute kidney injury) Paroxysmal atrial flutter Abnormal CT scan, chest Atrial flutter with rapid ventricular response [facility] prescription opiate use Chronic anticoagulation Paroxysmal atrial fibrillation Pneumonia (Acute) Cervicalgia (HFpEF) heart failure with preserved ejection fraction Collapse of left lung Elevated INR Atelectasis Abnormal EKG History of aortic valve repair NSVT (nonsustained ventricular tachycardia) Severe sepsis Malnutrition Elevated troponin COPD (chronic obstructive pulmonary disease) (Acute) Acute dehydration (Acute) Non-ST elevation NC (NSTEMI) (Acute) Hypomagnesemia (Acute) Positive colorectal cancer screening using Cologuard test per pt reason for scheduled colonoscopy Back pain Hypokalemia Asthma Bronchitis Emphysema lung Gallbladder problem Encounter for pre-operative examination Tobacco dependence Opioid dependence Abnormal diffusion capacity determined by pulmonary function test Personal history of nicotine dependence H/O stroke without residual deficits Anemia Vitamin D deficiency (Acute) Vitamin B12 deficiency (Acute) Restless legs syndrome (Acute) Raynauds disease (Acute) Paroxysmal SVT (supraventricular tachycardia) (Acute) Neuropathy (Acute) Low back pain (Acute) Insomnia (Acute) Congestive heart failure (Acute) Chronic pain (Acute) Cervical radiculopathy at C8 (Acute) Aortic regurgitation (Acute) Sore throat Cough Folate deficiency TIA (transient ischemic attack) Palpitations Tendinitis of left rotator cuff Cervical radicular pain Cardiomyopathy Vomiting Nausea and vomiting Low BMI Bilateral edema of lower extremity (Acute) Severe protein-calorie malnutrition Hypoxia (Acute) Dizziness (Acute) Acute respiratory failure with hypoxia Hypokalemia Acute on chronic diastolic CHF (congestive heart failure) recent diagnosis 01/07/23 at [facility]--pt states she is improving History of nicotine dependence Chronic dyspnea oxygen prn Diastolic CHF Hx laparoscopic cholecystectomy (01/13/21) Laparoscopic Cholecystectomy Dr. Pulido 01-13-2021 Cholecystitis Pulmonary hypertension S/P mitral valve replacement with bioprosthetic valve 2005 Osteoporosis CAD (coronary artery disease) Hypertension Medical History Atrial flutter Hypoglycemia Acute hyperkalemia Sepsis Hyperkalemia Flu Sepsis Elevated troponin I level Acute respiratory failure with hypoxia and hypercapnia Positive colorectal cancer screening using Cologuard test On anticoagulant therapy Chronic combined systolic (congestive) and diastolic (congestive) heart failure Bilateral pleural effusion Mitral valve disease History of aortic valve disease Chronic back pain Arthritis Hyperlipidemia Ischemic stroke Emphysema/COPD Fibromyalgia Peripheral neuropathy GERD (gastroesophageal reflux disease) Depression Anxiety Transient ischemic attack (TIA) Hyperlipidemia On home oxygen therapy Surgical History History of esophagogastroduodenoscopy (EGD) History of colonoscopy History of heart valve replacement History of lung biopsy History of bronchoscopy H/O: hysterectomy Family History Mother Slow to wake up after anesthesia Sister Family history of diabetes mellitus Father Stroke Osteoarthritis Other Coronary heart disease Denies family history of Ovarian cancer Prostate cancer Breast cancer Colorectal cancer Social History (Updated 05/16/24 @ 09:49 by RENAE Dhaliwal) Smoking Status: Former smoker Tobacco Type: Cigarettes Age Started Using Tobacco: 18; Age Quit Using Tobacco: 59; packs per day: 0.5; Second Hand Exposure: Yes (FAMILY SMOKED); Do You Dip or Chew Tobacco: No; Hx Alcohol Use: No Hx Substance Use: No Preferred Language: Fijian Communication Ability: Effective Hearing Ability: Normal Payer Specialist Required: Yes Beliefs That Will Affect Care: None marital status: Current Living Situation: Spouse Current Living Situation Comment: Mac (boyfriend) current occupational status: unemployed and disabled How many Children do You have: 2 Feels Safe at Home: Yes Childhood Exposure to Second-Hand Smoke: Yes Diet: regular during the past year weight has: decreased > 10 lbs Dental Care, Regularly: No Physical Activity Frequency: 3-4 Times per Week Seatbelt Use: always Sunscreen Use: Yes Assistive Devices: Oxygen - at Night Review of Systems Constitutional: + weight loss; no fever, no chills, no f atigue and no weakness Eyes: no worsening vision Ear, Nose, Mouth, Throat: no sore throat, no dysphagia and no pain with swallowing Respiratory: + cough and + dyspnea; no hemoptysis and no wheezing Cardiovascular: + dyspnea on exertion; no chest pain and no calf pain Gastrointestinal: no abdominal pain, no hematemesis, no dysphagia, no change in stools, no constipation and no blood in stools Genitourinary: no dysuria and no urinary frequency Integumentary: no rash and no unusual bruising Neurologic: no falls, no generalized weakness and no dizziness Psychiatric: no behavioral changes, no depression and no abnormal sleep pattern Endocrine: no polydipsia, no cold intolerance and no heat intolerance Hematologic / Lymphatic: no easy bruising Physical Exam Physical Exam: Gen: appears frail/cachectic, in no acute distress HEENT: NCAT, MMM, trachea midline CV: RRR, no m/r/g, S1/S2 normal Resp: CTAB, symmetrical chest rise, breathing non-labored Abd: Soft, NT/ND, no guarding, +BS, no HSM MSK: No gross deformities on inspection Skin: Warm, dry, pink, no rashes, lesions, or bruising Neuro: AOx3, EOMI, PERRL, no facial asymmetry, moves all extremities, SILT Psych: Mood-affect congruent. Speech pace and content normal. Results & Data Results & Data Vital Signs (Past 12 Hours) Vital Signs Temp Pulse Pulse Resp BP BP Pulse Ox 06/04/24 17:28 91 H 18 140/94 93 06/04/24 17:11 93 H 06/04/24 15:03 81 20 175/81 H 93 06/04/24 14:30 79 14 153/78 H 96 06/04/24 13:57 85 12 184/108 H 98 06/04/24 13:33 87 18 185/82 H 96 06/04/24 13:30 90 95 06/04/24 12:57 93 H 16 181/84 H 95 06/04/24 12:51 105 H 06/04/24 12:46 36.9 C 99 H 20 181/89 H 94 06/04/24 12:45 102 H 16 164/138 H 87 L O2 Del Method O2 Flow Rate 06/04/24 17:28 Nasal Cannula 4 06/04/24 17:11 06/04/24 15:03 Nasal Cannula 5 06/04/24 14:30 Nasal Cannula 5 06/04/24 13:57 Nasal Cannula 5 06/04/24 13:33 Nasal Cannula 5 06/04/24 13:30 Nasal Cannula 6 06/04/24 12:57 Nasal Cannula 5 06/04/24 12:51 06/04/24 12:46 Room Air 06/04/24 12:45 Nasal Cannula 4 Supervising Physician Co-Signing Physician Notes Patient seen and examined, chart reviewed, case discussed with Chinedu Zuñiga MD and I agree with the assessment and plan as above except as otherwise noted Labs and images reviewed Jennifer is a 64-year-old female with history of heart failure with midrange EF last echo EF 40%, congestive transaminitis, suspected cardiorenal syndrome, a flutter, CVA, opioid dependence, asthma who presents with nausea/vomiting and poor p.o. intake, who was found to be epoxy in the ER, and was recommended for admission for acute on chronic hypoxic respiratory failure due to acute on chronic heart failure with midrange EF. In ER assessment patient is 1+ bilateral extremity edema. Lungs are diminished with basilar crackles. CTA shows no evidence of PE however pleural effusions, interstitial pulmonary edema, and pulmonary hypertension are noted. CTA/P is suggestive of congestive hepatopathy with a small focus of enhancement at the liver dome favoring hemangioma but for which follow-up MRI is recommended. Mild ascites is present There is no leukocytosis. MCV is microcytic. BNP is elevated at 1807 troponin chronically elevated and is 16.5 on admission with to a repeat pending. EKG is without acute ischemic change. UA is noninfected appearing. BioFire is negative. Acute on chronic CHF with midrange EF, history of bioprosthetic MVR 2008 - +ankle swelling, +pulm edema. Fluid restrict, salt restricted Lasix 40 mg BID17 with potassium supplementation Daily weights Titrate oxygen to goal greater than 90% - Continue plavix, SHUBHAM, cary, BB, statin Poor appetite/p.o. intake ? Poor intake with congestive hepatopathy, mild abdominal ascites No evidence of infectious pathology BUN is not elevated no melena/hematochezia/hematemesis Protonix 40 mg daily continued, PPI twice daily added Patient is on amiodarone chronically and has had global malnutrition and weight loss.? If her current dose is supratherapeutic for her especially given significant muscle/weight loss. Weight is currently up but she is cachectic with fluid volume as well. Will dose reduce this by 50%. Will trial Marinol as appetite stimulant History of COPD Continue inhalers No wheezing - Tx CHF as noted Hypothyroidism Continue Synthroid, TSH recheck pending Diffuse Myoclonus - Keppra continued Resident Activity Tracking Resident Involvement: Resident Care Provided Care Provided: Adult Hospital Medicine (7) COPD (chronic obstructive pulmonary disease) COPD type: emphysema Emphysema type: unspecified Qualified Code(s): J43.9 - Emphysema, unspecified
--- NOTE | 2024-06-04 18:52 | Billing Data ---
Date of Service June 04, 2024 Coding Level of Care Code 21352 INT INP/OBS CARE
[2024-06-04] MEDS ORDERED: ACETAMINOPHEN 325 MG TAB PO PRN (20:35)
[2024-06-04] MEDS ORDERED: ALBUT/IPRATROP 3MG/0.5MG NEB 3 ML VIAL NEB PRN (20:35)
[2024-06-04] MEDS: SODIUM CHLOR 7% 4 ML NEB NEB SCH (21:19)
[2024-06-04] MEDS: oxyCODONE HCL IR 5 MG TAB (IMMEDIATE RELEASE) PO PRN (21:25)
[2024-06-04] MEDS: POTASSIUM CHLORIDE CRTAB 20 MEQ TABCR PO SCH (21:26)
[2024-06-04] MEDS: FAMOTIDINE 20MG IV PUSH 20 MG/5 ML SYR IV SCH (21:26)
[2024-06-04] MEDS: CLOPIDOGREL BISULFATE 75 MG TAB PO SCH (21:26)
[2024-06-04] MEDS: ATORVASTATIN 40 MG TAB PO SCH (21:26)
[2024-06-04] MEDS: levETIRAcetam 500 MG TAB PO SCH (22:05)
[2024-06-04] MEDS: droNABinol 2.5 MG CAP PO PRN (22:35)
[2024-06-05] MEDS: LEVOTHYROXINE SODIUM 175 MCG TABLET PO SCH (06:14)
[2024-06-05 06:54] LABS: Toxic Vacuolation 1+
[2024-06-05 07:09] LABS: Basophils # (auto) 0.04 K/uL (0.00-0.20); Basophils % (auto) 0.4 %; Hemoglobin 12.7 g/dl (12.0-16.0); Immature Granulocytes % (auto) 0.9 %; Lymphocytes # (auto) 0.95 K/uL (1.20-3.40); Lymphocytes % (auto) 8.7 %; Mean Corpuscular Hemoglobin 21.5 pg (25.0-34.0); Mean Corpuscular Hgb Conc 29.5 g/dL (32.0-36.0); Mean Corpuscular Volume 72.8 fL (80.0-100.0); Mean Platelet Volume 10.2 fL (9.4-12.4); Monocytes # (auto) 0.78 K/uL (0.11-0.59); Monocytes % (auto) 7.2 %; Neutrophils # (auto) 9.01 K/uL (1.40-6.50); Neutrophils % (auto) 82.8 %; Platelet Count 302 K/uL (130-400); RDW Coefficient of Variation 19.9 % (11.5-14.5); RDW Standard Deviation 49.6 fL (36.4-46.3); Red Blood Count 5.91 M/uL (4.20-5.40); White Blood Count 10.88 K/ul (4.8-10.8)
[2024-06-05 07:30] LABS: BUN Creatinine Ratio 14.8 (10-20); Creatinine Clr Calc Pharmacy 28.7 ml/min; Potassium 4.3 mmol/L (3.5-5.1)
[2024-06-05] MEDS: UMECLIDINIUM/VILANTEROL 62.5/25MCG 7 PUFFS/INHALER INH SCH (08:52)
[2024-06-05] MEDS: CHOLECALCIFEROL 25 MCG (1000 UNITS) TAB PO SCH (08:52)
[2024-06-05] MEDS: METOPROLOL SUCC 25MG EXT REL TAB PO SCH (08:53)
[2024-06-05] MEDS: lisinopril 2.5 MG TAB PO SCH (08:53)
[2024-06-05] MEDS: GABAPENTIN 300 MG CAP PO SCH (08:54)
[2024-06-05] MEDS: CYANOCOBALAMIN (B-12) 500 MCG TABLET PO SCH (08:54)
[2024-06-05] MEDS: MONTELUKAST SODIUM 10 MG TABLET PO SCH (08:54)
[2024-06-05] MEDS: PANTOprazole 40 MG TAB PO SCH (08:54)
[2024-06-05] MEDS: FOLIC ACID 1 MG TAB PO SCH (08:54)
[2024-06-05] MEDS: SPIRONOLACTONE 25 MG TAB PO SCH (08:55)
[2024-06-05] MEDS: FLUTICASONE FUROATE 200MCG 14 PUFFS/INHALER INH SCH (08:55)
[2024-06-05] MEDS: FUROSEMIDE 40 MG/4 ML VIAL IV SCH (08:55)
[2024-06-05] MEDS: AMIODARONE 200 MG TAB PO SCH (08:56)
[2024-06-05] MEDS ORDERED: NON-FORMULARY MEDICATION (Fluticasone-Umeclidin-Vilanter [Trelegy Ellipta] 200-62.5-25 mcg INH SCH (09:00)
--- NOTE | 2024-06-05 14:06 | Cardiology Consultation ---
Date of Consultation June 05, 2024 Assessment & Plan (1) Heart failure with mid-range ejection fraction (HFmEF): (2) Cardiomyopathy: (3) Moderate aortic regurgitation: (4) S/P mitral valve replacement with bioprosthetic valve: (5) COPD (chronic obstructive pulmonary disease): (6) CAD (coronary artery disease): Plan 64-year-old woman well-known to me with longstanding/severe COPD status post remote bioprosthetic mitral valve replacement with aortic valve repair, subse quently developed moderate aortic regurgitation with associated cardiomyopathy (variable EF, most recently 35-40% on JUAN January 2024) who was admitted with mild volume overload. Due to the severity of her underlying hypoxic lung disease/COPD, she tolerates even mild volume overload poorly. However, she responds quickly to volume unloading and appears remarkably better today. Critical element in her management is to avoid even mild volume overload without over-diuresing. She has not required routine diuretics, but should be on a careful weight-based regimen upon discharge. She was uncertain whether she usually took 20 or 40 mg furosemide PRN weight gain or edema, regardless of the dose I did recommend if she were to take the medication and not have a brisk diuresis that she take double the dose later that day. Once she has achieved her "dry weight", she would not need maintenance diuretics, but needs to continue scrupulously avoiding added salt/high sodium content meals and monitoring her weight closely with prompt use of diuretic as needed. Fortunately, no evidence of myocardial ischemia based on ECG or troponin. She appears euvolemic on exam today. Cardiology follow-up return with Stephanie Smiley PA-C in heart failure clinic in the next 1 to 2 weeks (I will ask scheduling to arrange). History of Present Illness Reason for Consultation: CHF Requesting Physician: Jose Robbins Attending Physician: Jose Robbins History of Present Illness 64-year-old woman with longstanding/severe COPD (on supplemental oxygen), remote PSVT with more recent atrial flutter, status post porcine mitral valve replacement with aortic valve repair 2005 (no major CAD) with moderate residual aortic regurgitation and subsequent cardiomyopathy (EF variable at 35-60%) with occasional HFmEF, who was admitted 06/04/24 after several weeks of progressive exertional dyspnea with ankle swelling and weight gain, evaluation here suggested acute on chronic congestive heart failure. I followed the patient for many years, particularly around the time of her valve replacement in 2005, she was last seen in our office by Krystian Valles PA-C December 2023. Subsequently, in January 2024 she was hospitalized at [facility] for heart failure and diuresed, transesophageal echo obtained at that time showed EF 35 to 40% normal RV size and function, appropriately functioning mitral bioprosthesis, moderate aortic regurgitation without stenosis (AI jet converges with mitral inflow making AI look worse), mild to moderate TR. Current hospitalization evaluation includes the following data: Rhythm sinus with occasional PVCs and prolonged QTc, unremarkable ST segments. Compared with 10/16/2023, PVCs new, CT interval has decreased, QRS duration is decreased. Chest x-ray with moderate left and small right pleural effusions with pulmonary vascular congestion. Chest CT with pleural effusions and interstitial pulmonary edema superimposed on underlying severe emphysema, evidence of pulmonary hypertension. Troponin 16.5. BNP 1807 (historical range prior to this [id number]). After single dose of furosemide 60 mg IV yesterday, she diuresed well and feels remarkably better today. No dyspnea at rest and no chest pain, palpitations, or lightheadedness. At the time of my evaluation earlier today, she had no somatic complaints. Allergies Allergy/AdvReac Type Severity Reaction Status Date / Time aspirin Allergy Intermediate Hives Verified 05/16/24 09:45 hydrochlorothiazide Allergy Intermediate RASH/"Sick Verified 05/16/24 09:45 in stomach" trazodone AdvReac Severe Vomiting Verified 05/16/24 09:45 furosemide AdvReac Intermediate ELEVATED Verified 05/16/24 09:45 CREATINE tramadol AdvReac Mild Nausea Verified 05/16/24 09:45 Home Medications Medication Instructions Recorded Confirmed Type ipratropium 0.5 mg-albuterol 3 mg 3 ml NEB QID PRN shortness of 02/07/23 06/04/24 History (2.5 mg base)/3 mL nebulization breath or wheezing soln nebulizer accessories #5 ea 02/13/23 05/16/24 Rx nebulizers #1 ea 02/13/23 05/16/24 Rx Wheeled Walker #1 ea 02/22/23 05/16/24 Rx folic acid 1 mg tablet 1 mg PO QAM #90 tabs 02/22/23 06/04/24 Rx fluticasone fur. 200 mcg-umeclid 1 inh inhalation DAILY #60 ea 03/06/23 06/04/24 Rx 62.5 mcg-vilant 25 mcg inhalat.powder (Trelegy Ellipta) sodium chloride 7 % for 4 ml NEB BIDR #240 mL 05/11/23 06/04/24 Rx nebulization lisinopril 2.5 mg tablet 2.5 mg PO QAM #90 tabs 06/21/23 06/04/24 Rx cyanocobalamin (vitamin B-12) 1,000 mcg PO QAM #90 tabs 07/14/23 06/04/24 Rx 1,000 mcg tablet cholecalciferol (vitamin D3) 50 4,000 unit PO QAM 90 days #180 tabs 08/18/23 06/04/24 Rx mcg (2,000 unit) tablet (Vitamin D3) spironolactone 25 mg tablet 25 mg PO DAILY #90 tabs 11/07/23 06/04/24 Rx atorvastatin 40 mg tablet 40 mg PO QPM #90 tabs 02/23/24 06/04/24 Rx Oxygen Home 02/26/24 05/16/24 History gabapentin 300 mg capsule 300 mg PO DAILY 02/26/24 06/04/24 History clopidogrel 75 mg tablet 75 mg PO QPM #90 tabs 02/28/24 06/04/24 Rx montelukast 10 mg tablet 10 mg PO QAM #90 tabs 02/29/24 06/04/24 Rx abaloparatide (Tymlos) 80 mcg (0.04 mL) subcut DAILY 03/04/24 06/04/24 Rx #1.56 mL metoprolol succinate 25 mg 12.5 mg (1/2 x 25 mg) PO DAILY #45 03/04/24 06/04/24 Rx tablet,extended release 24 hr tabs pen needle, diabetic 32 gauge x #100 ea 03/05/24 05/16/24 Rx 5/32" (BD Aruna 2nd Gen Pen Needle) amiodarone 200 mg tablet 200 mg PO QAM #90 tabs 03/27/24 06/04/24 Rx levothyroxine 175 mcg tablet 175 mcg PO DAILY #30 tabs 04/29/24 06/04/24 Rx potassium chloride 20 mEq 20 meq PO BID #14 tabs 04/30/24 06/04/24 Rx tablet,extended release levetiracetam 500 mg tablet 500 mg PO BID 90 days #180 tabs 05/10/24 06/04/24 Rx (Keppra) pantoprazole 40 mg tablet,delayed 40 mg PO DAILY #90 tabs 05/28/24 06/04/24 Rx release mirtazapine 15 mg tablet 15 mg PO HS #90 tabs 05/30/24 06/04/24 Rx oxycodone 5 mg tablet 5 mg PO Q4H PRN pain #120 tabs 06/04/24 06/04/24 Rx Patient History Medical History Atrial flutter Hypoglycemia Acute hyperkalemia Sepsis Hyperkalemia Flu Sepsis Elevated troponin I level Acute respiratory failure with hypoxia and hypercapnia Positive colorectal cancer screening using Cologuard test On anticoagulant therapy plavix daily---MVR/AVR--follows with Krystian Valles Chronic combined systolic (congestive) and diastolic (congestive) heart failure Bilateral pleural effusion hx Mitral valve disease s/p MVR (2005) History of aortic valve disease s/p AVR (2005) Chronic back pain + neck Arthritis Hyperlipidemia Ischemic stroke Remote hx per records (?11/2018) Emphysema/COPD inhaler daily/prn, nebulizer prn Fibromyalgia Peripheral neuropathy GERD (gastroesophageal reflux disease) Depression Anxiety Transient ischemic attack (TIA) 2005, 2019--no deficits, followed with Dr. Plummer (cleared) follows with PCP and cardiology Hyperlipidemia On home oxygen therapy 2L O2 HS + PRN Surgical History History of esophagogastroduodenoscopy (EGD) History of colonoscopy History of heart valve replacement AVR (2005) History of lung biopsy History of bronchoscopy H/O: hysterectomy Family History Mother Slow to wake up after anesthesia Sister Family history of diabetes mellitus Father Stroke Osteoarthritis Other Coronary heart disease Denies family history of Ovarian cancer Prostate cancer Breast cancer Colorectal cancer Social History Smoking Status: Former smoker Tobacco Type: Cigarettes Age Started Using Tobacco: 18; Age Quit Using Tobacco: 59; packs per day: 0.5; Second Hand Exposure: Yes (FAMILY SMOKED); Do You Dip or Chew Tobacco: No; Hx Alcohol Use: No Hx Substance Use: No Preferred Language: [place]i Communication Ability: Effective Hearing Ability: Normal [place] Required: No Beliefs That Will Affect Care: None marital status: Current Living Situation: Significant Other Current Living Situation Comment: Mac (boyfriend) current occupational status: unemployed and disabled How many Children do You have: 2 Feels Safe at Home: Yes Childhood Exposure to Second-Hand Smoke: Yes Diet: regular during the past year weight has: decreased > 10 lbs Dental Care, Regularly: No Physical Activity Frequency: 3-4 Times per Week Seatbelt Use: always Sunscreen Use: Yes Assistive Devices: Oxygen - Continuous Physical Exam Physical Exam: Appears frail but not acutely distressed. BP 160/75 mmHg. Pulse 71 bpm and regular. Skin: No unusual rash, systemic lesions, or ecchymoses. HEENT: Unremarkable. Neck: Jugular venous pulse just above the clavicle at 90 degrees with increased respiratory variation. No carotid bruits. Lungs: Markedly decreased breath sounds with dullness left base and few basilar crackles, no obvious wheezing or accessory muscle use. Cardiac: Regular rhythm with faint heart sounds, 2/6 basal systolic ejection murmur with intact aortic closure sound, despite known aortic insufficiency no obvious diastolic murmur. Abdomen: Benign. Extremities: No edema, peripheral pulses intact Neurologic: Normal affect and conversation, grossly nonfocal. Results & Data Vital Signs (Past 12 Hours) Vital Signs Temp Pulse Pulse Resp BP Pulse Ox O2 Del Method 06/05/24 11:33 97.7 F 71 20 160/75 H 93 Nasal Cannula 06/05/24 11:21 103 H 06/05/24 08:23 98.6 F 92 H 20 124/68 91 Nasal Cannula 06/05/24 07:34 Nasal Cannula 06/05/24 07:15 100 H 18 84 L Nasal Cannula 06/05/24 03:36 97.9 F 72 20 99/56 L 100 Room Air O2 Flow Rate 06/05/24 11:33 4 06/05/24 11:21 06/05/24 08:23 5 06/05/24 07:34 2 06/05/24 07:15 3 06/05/24 03:36 Laboratory Results WBC 10.88, normal hemoglobin and platelet count. Normal electrolytes, BUN 18, creatinine 1.22. Troponin and BNP as per HPI. Diagnostic Findings As per HPI. PG Care Time/CCT Total # of Minutes Spent Total Time Spent with Patient: Total time spent is greater than 50% in coordination of care (as documented) at patient's floor/unit and/or counseling patient: Coding Level of Care Code 35747 IN/OBS CONSULT LVL 5,80M Diagnoses Heart failure with mid-range ejection fraction (HFmEF) I50.22 Cardiomyopathy I42.9 Moderate aortic regurgitation I35.1 S/P mitral valve replacement with bioprosthetic valve Z95.3 Pulmonary emphysema, unspecified emphysema type J43.9 COPD type: emphysema Emphysema type: unspecified Coronary artery disease involving [place] coronary artery of [place] heart without angina pectoris I25.10 Coronary Disease-Associated Artery/Lesion type: [place] artery [place] vs. transplanted heart: [place] heart Associated angina: without angina (5) COPD (chronic obstructive pulmonary disease) COPD type: emphysema Emphysema type: unspecified Qualified Code(s): J43.9 - Emphysema, unspecified (6) CAD (coronary artery disease) Coronary Disease-Associated Artery/Lesion type: [place] artery [place] vs. transplanted heart: [place] heart Associated angina: without angina Qualified Code(s): I25.10 - Atherosclerotic heart disease of [place] coronary artery without angina pectoris
[2024-06-05] MEDS: ENOXAPARIN INJ 40 MG/0.4 ML SYR SQ SCH (20:42)
--- NOTE | 2024-06-05 22:57 | Hospitalist Progress Note ---
Date of Service June 05, 2024 Assessment & Plan (1) Acute CHF: (2) Hypomagnesemia: (3) Pleural effusion on left: (4) Acute hypoxemic respiratory failure: (5) Chronic anticoagulation: (6) Malnutrition: (7) COPD (chronic obstructive pulmonary disease): Plan Jennifer is a 64-year-old female with history of heart failure with midrange EF last echo EF 40%, congestive transaminitis, suspected cardiorenal syndrome, a flutter, CVA, opioid dependence, asthma who presents with nausea/vomiting and poor p.o. intake, who was found to be epoxy in the ER, and was recommended for admission for acute on chronic hypoxic respiratory failure due to acute on chronic heart failure with midrange EF. In ER assessment patient is 1+ bilateral extremity edema. Lungs are diminished with basilar crackles. CTA shows no evidence of PE however pleural effusions, interstitial pulmonary edema, and pulmonary hypertension are noted. CTA/P is suggestive of congestive hepatopathy with a small focus of enhancement at the liver dome favoring hemangioma but for which follow-up MRI is recommended. Mild ascites is present There is no leukocytosis. MCV is microcytic. BNP is elevated at 1807 troponin chronically elevated and is 16.5 on admission with to a repeat pending. EKG is without acute ischemic change. UA is noninfected appearing. BioFire is negative. #HFrEF, Acute on chronic hypoxemic respiratory failure, pleural effusion Acute on chronic CHF with midrange EF, history of bioprosthetic MVR 2008 - +ankle swelling, +pulm edema. Fluid restrict, salt restricted Lasix 40 mg BID17 with potassium supplementation Daily weights Titrate oxygen to goal greater than 90% - Continue plavix, SHUBHAM, cary, BB, statin -will continue diuretics, monitor oxygenation. #Malnutrition Poor appetite/p.o. intake ? Poor intake with congestive hepatopathy, mild abdominal ascites No evidence of infectious pathology BUN is not elevated no melena/hematochezia/hematemesis Protonix 40 mg daily continued, PPI twice daily added Patient is on amiodarone chronically and has had global malnutrition and weight loss.? If her current dose is supratherapeutic for her especially given significant muscle/weight loss. Weight is currently up but she is cachectic with fluid volume as well. Will dose reduce this by 50%. Will trial Marinol as appetite stimulant will neeed to monitor phos for refeeding syndrome History of COPD -on 2 liters at baseline Continue inhalers No wheezing - Tx CHF as noted Hypothyroidism Continue Synthroid, TSH recheck pending Diffuse Myoclonus - Keppra continued Hypomagnesemia - s/p 1g given in ED - recheck with AM labs Diet: HH as tolerated VTE ppx: Code: full Dispo: admit to med tele reviewed HPI Admission and Anticipated Discharge Date Admission Date: June 04, 2024 Subjective Patient reports feeling better than when she first came in. She has reported a poor appetite and 10 pound weight loss over past month. Physical Exam Physical Exam: Gen: appears frail/cachectic, in no acute distress HEENT: NCAT, MMM, trachea midline CV: RRR, no m/r/g, S1/S2 normal Resp: CTAB, symmetrical chest rise, breathing non-labored Abd: Soft, NT/ND, no guarding, +BS Neuro: AOx3, EOMI, PERRL, no facial asymmetry, moves all extremities, SILT Results & Data Results & Data Vital Signs (Past 12 Hours) Vital Signs Temp Pulse Pulse Resp BP BP Pulse Ox 06/05/24 21:00 06/05/24 20:23 36.6 C 96 H 20 102/62 92 06/05/24 18:15 86 18 85 L 06/05/24 16:09 81 06/05/24 15:01 36.7 C 90 18 122/65 97 06/05/24 11:33 36.5 C 71 20 160/75 H 93 06/05/24 11:21 103 H Pulse Ox O2 Del Method O2 Del Method O2 Flow Rate O2 Flow Rate 06/05/24 21:00 94 Nasal Cannula 4 06/05/24 20:23 Nasal Cannula 4 06/05/24 18:15 Nasal Cannula 2 06/05/24 16:09 06/05/24 15:01 Nasal Cannula 2 06/05/24 11:33 Nasal Cannula 4 06/05/24 11:21 PG Care Time/CCT Total # of Minutes Spent Total Time Spent with Patient: Total time spent is greater than 50% in coordination of care (as documented) at patient's floor/unit and/or counseling patient: Coding Level of Care Code 13846 SUB INP/OBS CARE 3/50MIN Diagnoses Acute CHF I50.9 Hypomagnesemia E83.42 Pleural effusion on left J90 Acute hypoxemic respiratory failure J96.01 Chronic anticoagulation Z79.01 Malnutrition E46 Pulmonary emphysema, unspecified emphysema type J43.9 COPD type: emphysema Emphysema type: unspecified (7) COPD (chronic obstructive pulmonary disease) COPD type: emphysema Emphysema type: unspecified Qualified Code(s): J43.9 - Emphysema, unspecified
[2024-06-06 08:23] LABS: Basophils # (auto) 0.04 K/uL (0.00-0.20); Basophils % (auto) 0.5 %; Hematocrit (blood only) 37.6 % (37.0-47.0); Hemoglobin 11.4 g/dl (12.0-16.0); Immature Granulocytes # (auto) 0.02 K/uL (0.01-0.20); Immature Granulocytes % (auto) 0.3 %; Lymphocytes % (auto) 19.7 %; Mean Corpuscular Hemoglobin 21.3 pg (25.0-34.0); Mean Corpuscular Hgb Conc 30.3 g/dL (32.0-36.0); Mean Corpuscular Volume 70.3 fL (80.0-100.0); Mean Platelet Volume 10.8 fL (9.4-12.4); Monocytes # (auto) 0.81 K/uL (0.11-0.59); Monocytes % (auto) 10.6 %; Neutrophils # (auto) 5.25 K/uL (1.40-6.50); Neutrophils % (auto) 68.9 %; Platelet Count 239 K/uL (130-400); RDW Coefficient of Variation 19.9 % (11.5-14.5); RDW Standard Deviation 47.5 fL (36.4-46.3); Red Blood Count 5.35 M/uL (4.20-5.40); White Blood Count 7.62 K/ul (4.8-10.8)
[2024-06-06 08:45] LABS: Albumin Globulin Ratio 1.2 (0.9-2); Albumin Level 2.9 gm/dl (3.4-5.0); BUN Creatinine Ratio 15.9 (10-20); Bilirubin,Total 0.7 mg/dl (0.2-1.0); C Reactive Protein 1.59 mg/dl (0-0.5); Calcium 8.8 mg/dl (8.6-10.3); Creatinine Clr Calc Pharmacy 30.4 ml/min; Globulin 2.5 gm/dl (2.5-4.0); Potassium 4.1 mmol/L (3.5-5.1); Total Protein 5.4 gm/dl (6.0-8.3)
[2024-06-06 10:09] LABS: Magnesium 1.4 mg/dl (1.7-2.4); Phosphorus 3.4 mg/dl (2.5-4.9)
--- NOTE | 2024-06-06 10:28 | Cardiology Progress Note ---
Date of Service June 06, 2024 Assessment & Plan (1) Heart failure with mid-range ejection fraction (HFmEF): (2) Cardiomyopathy: (3) Moderate aortic regurgitation: (4) S/P mitral valve replacement with bioprosthetic valve: (5) COPD (chronic obstructive pulmonary disease): (6) CAD (coronary artery disease): Plan She is doing well and appears euvolemic, emphasized that her current weight should serve as her goal weight for adjusting outpatient diuretics. She does not need to automatically take diuretics upon discharge, since she would be prone to overdiuresis. Rather, would use weight based regimen as follows: Current weight no diuretic 1 pound weight gain furosemide 20 mg 2 or >2 pound weight gain furosemide 40 mg Otherwise, continue her usual cardiac medications of lisinopril, metoprolol, spironolactone, amiodarone, atorvastatin, clopidogrel. She already has an appointment scheduled with Stephanie Smiley PA-C in heart failure clinic in the next 1 to 2 weeks. Admission and Anticipated Discharge Date Admission Date: June 04, 2024 Subjective Uneventful night. She feels well, denying any chest pain, dyspnea at rest, palpitations, or lightheadedness. Telemetry showed sinus rhythm with PVCs, rate generally in the 6070 range with occasional 90 bpm reading. Physical Exam Physical Exam: Appears comfortable. BP 164/60 mmHg. Pulse 66 bpm and regular with ectopy. Respirations 18 unlabored. Skin: No unusual rash, systemic lesions, or ecchymoses. HEENT: Unremarkable. Neck: Jugular venous pulse at the clavicle at 90 degrees with increased respiratory variation. No carotid bruits. Lungs: Markedly decreased breath sounds with dullness left base, no obvious wheezing or accessory muscle use. Cardiac: Regular rhythm with faint heart sounds, 2/6 basal systolic ejection murmur with intact aortic closure sound, despite known aortic insufficiency no obvious diastolic murmur. Abdomen: Benign. Extremities: No edema, peripheral pulses intact Neurologic: Normal affect and conversation, grossly nonfocal. Results & Data Laboratory Results Normal electrolytes, BUN 18, creatinine 1.13. PG Care Time/CCT Total # of Minutes Spent Total Time Spent with Patient: Total time spent is greater than 50% in coordination of care (as documented) at patient's floor/unit and/or counseling patient: Coding Level of Care Code 00341 SUB INP/OBS CARE 2/35MIN Diagnoses Heart failure with mid-range ejection fraction (HFmEF) I50.22 Cardiomyopathy I42.9 Moderate aortic regurgitation I35.1 S/P mitral valve replacement with bioprosthetic valve Z95.3 Pulmonary emphysema, unspecified emphysema type J43.9 COPD type: emphysema Emphysema type: unspecified Coronary artery disease involving [place] coronary artery of [place] heart without angina pectoris I25.10 Coronary Disease-Associated Artery/Lesion type: [place] artery [place] vs. transplanted heart: [place] heart Associated angina: without angina (5) COPD (chronic obstructive pulmonary disease) COPD type: emphysema Emphysema type: unspecified Qualified Code(s): J43.9 - Emphysema, unspecified (6) CAD (coronary artery disease) Coronary Disease-Associated Artery/Lesion type: [place] artery [place] vs. transplanted heart: [place] heart Associated angina: without angina Qualified Code(s): I25.10 - Atherosclerotic heart disease of [place] coronary artery without angina pectoris
[2024-06-06] MEDS: MAGNESIUM SULFATE / D5W 1 GM/100 ML BAG IV SCH (17:53)
[2024-06-06] MEDS: acetaZOLAMIDE 500 MG in SYRINGE 0 ML IV STA (17:53)
--- NOTE | 2024-06-06 22:55 | Hospitalist Progress Note ---
Date of Service June 06, 2024 Assessment & Plan (1) Acute CHF: (2) Hypomagnesemia: (3) Pleural effusion on left: (4) Acute hypoxemic respiratory failure: (5) Chronic anticoagulation: (6) Malnutrition: (7) COPD (chronic obstructive pulmonary disease): Plan Jennifer is a 64-year-old female with history of heart failure with midrange EF last echo EF 40%, congestive transaminitis, suspected cardiorenal syndrome, a flutter, CVA, opioid dependence, asthma who presents with nausea/vomiting and poor p.o. intake, who was found to be epoxy in the ER, and was recommended for admission for acute on chronic hypoxic respiratory failure due to acute on chronic heart failure with midrange EF. In ER assessment patient is 1+ bilateral extremity edema. Lungs are diminished with basilar crackles. CTA shows no evidence of PE however pleural effusions, interstitial pulmonary edema, and pulmonary hypertension are noted. CTA/P is suggestive of congestive hepatopathy with a small focus of enhancement at the liver dome favoring hemangioma but for which follow-up MRI is recommended. Mild ascites is present There is no leukocytosis. MCV is microcytic. BNP is elevated at 1807 troponin chronically elevated and is 16.5 on admission with to a repeat pending. EKG is without acute ischemic change. UA is noninfected appearing. BioFire is negative. #HFrEF, Acute on chronic hypoxemic respiratory failure, pleural effusion Acute on chronic CHF with midrange EF, history of bioprosthetic MVR 2008 - +ankle swelling, +pulm edema. Fluid restrict, salt restricted Lasix 40 mg BID17 with potassium supplementation Daily weights Titrate oxygen to goal greater than 90% - Continue plavix, SHUBHAM, cary, BB, statin -will continue diuretics, monitor oxygenation. due to metabolic alkalosis ordered acetazolamide. will recheck BMP in am #Malnutrition Poor appetite/p.o. intake ? Poor intake with congestive hepatopathy, mild abdominal ascites No evidence of infectious pathology BUN is not elevated no melena/hematochezia/hematemesis Protonix 40 mg daily continued, PPI twice daily added Patient is on amiodarone chronically and has had global malnutrition and weight loss.? If her current dose is supratherapeutic for her especially given significant muscle/weight loss. Weight is currently up but she is cachectic with fluid volume as well. Will dose reduce this by 50%. Will trial Marinol as appetite stimulant will neeed to monitor phos for refeeding syndrome: appears at goal, History of COPD -on 2 liters at baseline Continue inhalers No wheezing - Tx CHF as noted Hypothyroidism Continue Synthroid, TSH recheck pending Diffuse Myoclonus - Keppra continued Hypomagnesemia - s/p 1g given in ED - reordered 1 gr of mag on 06/06 Diet: HH as tolerated VTE ppx: Code: full Dispo: admit to med tele reviewed HPI Admission and Anticipated Discharge Date Admission Date: June 04, 2024 Subjective 64 yo female reports feeling much better. Physical Exam Physical Exam: Gen: appears frail/cachectic, in no acute distress HEENT: NCAT, MMM, trachea midline CV: RRR, no m/r/g, S1/S2 normal Resp: CTAB, symmetrical chest rise, breathing non-labored Abd: Soft, NT/ND, no guarding, +BS Neuro: AOx3, EOMI, PERRL, no facial asymmetry, moves all extremities, SILT Results & Data Results & Data Vital Signs (Past 12 Hours) Vital Signs Temp Pulse Pulse Resp BP Pulse Ox O2 Del Method 06/06/24 22:46 36.5 C 86 20 118/62 95 Nasal Cannula 06/06/24 20:17 76 17 95 Nasal Cannula 06/06/24 19:08 36.7 C 60 20 109/71 92 Nasal Cannula 06/06/24 16:23 79 06/06/24 14:59 36.3 C L 75 18 114/68 94 Nasal Cannula 06/06/24 11:19 36.4 C L 70 18 119/72 92 Nasal Cannula O2 Flow Rate 06/06/24 22:46 2 06/06/24 20:17 3 06/06/24 19:08 2 06/06/24 16:23 06/06/24 14:59 2 06/06/24 11:19 2 PG Care Time/CCT Total # of Minutes Spent Total Time Spent with Patient: Total time spent is greater than 50% in coordination of care (as documented) at patient's floor/unit and/or counseling patient: Coding Level of Care Code 89021 SUB INP/OBS CARE 3/50MIN Diagnoses Acute CHF I50.9 Hypomagnesemia E83.42 Pleural effusion on left J90 Acute hypoxemic respiratory failure J96.01 Chronic anticoagulation Z79.01 Malnutrition E46 Pulmonary emphysema, unspecified emphysema type J43.9 COPD type: emphysema Emphysema type: unspecified (7) COPD (chronic obstructive pulmonary disease) COPD type: emphysema Emphysema type: unspecified Qualified Code(s): J43.9 - Emphysema, unspecified
[2024-06-07 08:13] VITALS: PULSE 58; RESP 20; TEMP 98.4; O2SAT 94
[2024-06-07 08:35] LABS: Calcium 9.5 mg/dl (8.6-10.3); Magnesium 2.1 mg/dl (1.7-2.4)
[2024-06-07 08:40] LABS: Hemoglobin 11.8 g/dl (12.0-16.0); Mean Corpuscular Hemoglobin 21.1 pg (25.0-34.0); Mean Corpuscular Hgb Conc 29.5 g/dL (32.0-36.0); Mean Corpuscular Volume 71.4 fL (80.0-100.0); Mean Platelet Volume 10.4 fL (9.4-12.4); Platelet Count 234 K/uL (130-400); RDW Coefficient of Variation 20.2 % (11.5-14.5); RDW Standard Deviation 48.5 fL (36.4-46.3); White Blood Count 7.52 K/ul (4.8-10.8)
[2024-06-07 08:47] LABS: BUN Creatinine Ratio 13.6 (10-20); C Reactive Protein 1.64 mg/dl (0-0.5); Creatinine Clr Calc Pharmacy 25.9 ml/min; Phosphorus 3.9 mg/dl (2.5-4.9)
[2024-06-07 09:02] LABS: Anisocytosis Present; Basophils # (auto) 0.04 K/uL (0.00-0.20); Basophils % (auto) 0.5 %; Hypochromasia Present; Immature Granulocytes # (auto) 0.05 K/uL (0.01-0.20); Immature Granulocytes % (auto) 0.7 %; Microcytosis Present; Monocytes # (auto) 1.03 K/uL (0.11-0.59); Monocytes % (auto) 13.7 %; Neutrophils % (auto) 69.1 %; Ovalocytes 1+; Polychromasia 1+; Target Cells 1+
--- NOTE | 2024-06-07 09:58 | Discharge Summary ---
Discharge Summary Date of Service June 07, 2024 Principal Dx & Hospital Course #1 = Principal Diagnosis (1) Acute CHF: (2) Hypomagnesemia: (3) Pleural effusion on left: (4) Acute hypoxemic respiratory failure: (5) Chronic anticoagulation: (6) Malnutrition: (7) COPD (chronic obstructive pulmonary disease): Merced Rodriguez is a 64-year-old female with history of heart failure with midrange EF last echo EF 40%, congestive transaminitis, suspected cardiorenal syndrome, a flutter, CVA, opioid dependence, asthma who presents with nausea/vomiting and poor p.o. intake, who was found to be epoxy in the ER, and was recommended for admission for acute on chronic hypoxic respiratory failure due to acute on chronic heart failure with midrange EF. In ER assessment patient is 1+ bilateral extremity edema. Lungs are diminished with basilar crackles. CTA shows no evidence of PE however pleural effusions, interstitial pulmonary edema, and pulmonary hypertension are noted. CTA/P is suggestive of congestive hepatopathy with a small focus of enhancement at the liver dome favoring hemangioma but for which follow-up MRI is recommended. Mild ascites is present There is no leukocytosis. MCV is microcytic. BNP is elevated at 1807 troponin chronically elevated and is 16.5 on admission with to a repeat pending. EKG is without acute ischemic change. UA is noninfected appearing. BioFire is negative. #HFrEF, Acute on chronic hypoxemic respiratory failure, pleural effusion Acute on chronic CHF with midrange EF, history of bioprosthetic MVR 2008 - +ankle swelling, +pulm edema. Fluid restrict, salt restricted Lasix 40 mg BID17 with potassium supplementation Daily weights Titrate oxygen to goal greater than 90% - Continue plavix, SHUBHAM, cary, BB, statin -will continue diuretics, monitor oxygenation. due to metabolic alkalosis ordered acetazolamide. will recheck BMP in am #Malnutrition Poor appetite/p.o. intake ? Poor intake with congestive hepatopathy, mild abdominal ascites No evidence of infectious pathology BUN is not elevated no melena/hematochezia/hematemesis Protonix 40 mg daily continued, PPI twice daily added Patient is on amiodarone chronically and has had global malnutrition and weight loss.? If her current dose is supratherapeutic for her especially given significant muscle/weight loss. Weight is currently up but she is cachectic with fluid volume as well. Will dose reduce this by 50%. Will trial Marinol as appetite stimulant will neeed to monitor phos for refeeding syndrome: appears at goal, History of COPD -on 2 liters at baseline Continue inhalers No wheezing - Tx CHF as noted Hypothyroidism Continue Synthroid, TSH recheck pending Diffuse Myoclonus - Keppra continued severe malnutrition The medical record reflects the following clinical evidence: Clinical Indicators: Review of rides supervisor consult reveals pt with poor dietary tolerance and poor meal intake (</=25%). Pt reports appetite has recently been down for past 2 weeks. BMI 16.6. Meets GLIM criteria for malnutrition with BMI <18.5 if <70. Described as cachectic. Treatment: marinol, po supplement (boost) BIDM, snacks TID, monitor I/O, monitor wts Risk Factor(s): age, chronic systolic CHF, chronic hypoxic respiratory failure, pancolitis, opioid abuse, COPD Hypomagnesemia - s/p 1g given in ED - reordered 1 gr of mag on 06/06 Diet: HH as tolerated VTE ppx: Code: full Dispo: admit to med tele reviewed HPI Admission HPI Per Admitting Provider Patient reports that for the past 2 weeks she has been unable to tolerate po intake. She starts gagging whenever she tries to eat or drink anything, and what she is able to swallow "comes right back up." She denies any abd pain, hematemesis, dysphagia. She reports normal bowel function, no change in stool color or consistency. No recent illness or sick contacts. No notable inciting event. She noticed her feet/ankles swelling a few days ago and started taking her lasix, which she does not take daily. She feels it did not have any effect. Her urine output is unchanged, no dysuria or change in frequency. She reports taking her medications as prescribed. She has not felt weak or dizzy or had a recent fall. 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 On arrival, she was hypertensive to 181/89 with HR in 100s. Initial labs notable for no leukocytosis, mild elevation in PT & INR, Mg low at 1.4, alk phos of 151, HS-trop 16.5, BNP 1807, and UA with 1+ protein. CXR and chest CTA showing trace R pleural effusion, mod L pleural effusion, LLL consolidation, and pulmonary hypertension. CTAP showing pancolitis. In the ED, she was given 1L NSS, 1g IV magnesium, and 60mg IV lasix. Vitals stabilized, comfortable on 4L NC. Discharge Exam Gen: appears frail/cachectic, in no acute distress HEENT: NCAT, MMM, trachea midline CV: RRR, no m/r/g, S1/S2 normal Resp: CTAB, symmetrical chest rise, breathing non-labored Abd: Soft, NT/ND, no guarding, +BS Neuro: AOx3, EOMI, PERRL, no facial asymmetry, moves all extremities, SILT Discharge Plan Discharge Items Reason For Visit: CHF Follow-up/Referrals: Barrington Joshi MD [Primary Care Provider] - Pending Studies at Discharge: No Medications and DC Order Prescriptions: New dronabinol 2.5 mg Capsule 2.5 mg PO DAILY PRN (Reason: nausea and vomiting/ increase appetite) Qty: 10 0RF Continued (DME) nebulizers [facility] See Rx Instructions .Route Qty: 1 0RF Rx Instructions: Use with albuterol and saline nebulizer solution as directed (DME) nebulizer accessories [facility] See Rx Instructions .Route Qty: 5 3RF Rx Instructions: TUBING AND ADULT ADMINISTRATION DEVICE/MASK folic acid 1 mg tablet 1 mg PO QAM Qty: 90 3RF (DME) Wheeled Walker [facility] See Rx Instructions .Route Qty: 1 0RF Rx Instructions: As directed Trelegy Ellipta 200-62.5-25 mcg blister with device 1 inh inhalation DAILY Qty: 60 5RF sodium chloride 7 % solution for nebulization 4 ml NEB BIDR Qty: 240 0RF lisinopril 2.5 mg tablet 2.5 mg PO QAM Qty: 90 3RF cyanocobalamin (vitamin B-12) 1,000 mcg tablet 1,000 mcg PO QAM Qty: 90 3RF cholecalciferol (vitamin D3) [Vitamin D3] 50 mcg (2,000 unit) tablet 4,000 unit PO QAM 90 Days Qty: 180 3RF spironolactone 25 mg tablet 25 mg PO DAILY Qty: 90 3RF atorvastatin 40 mg tablet 40 mg PO QPM Qty: 90 3RF clopidogrel 75 mg tablet 75 mg PO QPM Qty: 90 3RF montelukast 10 mg tablet 10 mg PO QAM Qty: 90 3RF metoprolol succinate 25 mg tablet extended release 24 hr 12.5 mg PO DAILY Qty: 45 3RF levothyroxine 175 mcg tablet 175 mcg PO DAILY Qty: 30 11RF levetiracetam [Keppra] 500 mg tablet 500 mg PO BID 90 Days Qty: 180 3RF pantoprazole 40 mg tablet,delayed release (DR/EC) 40 mg PO DAILY Qty: 90 3RF mirtazapine 15 mg tablet 15 mg PO HS Qty: 90 1RF oxycodone 5 mg tablet 5 mg PO Q4H PRN (Reason: pain) Qty: 120 0RF gabapentin 300 mg capsule 300 mg PO DAILY (DME) Oxygen Home Liters Per Minute See Rx Instructions .Route Rx Instructions: 3 L/min at all times as directed amiodarone 200 mg tablet 200 mg PO QAM Qty: 90 3RF Tymlos 80 mcg (3,120 mcg/1.56 mL) pen injector 80 mcg subcut DAILY Qty: 1.56 11RF Rx Instructions: inject into abdomen; do not inject within 2 inches of belly button/navel; rotate sites (DME) pen needle, diabetic [BD Aruna 2nd Gen Pen Needle] 32 gauge x 5/32" needle See Rx Instructions .Route Qty: 100 0RF Rx Instructions: As directed ipratropium-albuterol 0.5 mg-3 mg(2.5 mg base)/3 mL solution for nebulization 3 ml NEB QID PRN (Reason: shortness of breath or wheezing) Discontinued potassium chloride 20 mEq tablet extended release 20 meq PO BID Qty: 14 0RF Admission Data Admit Date/Time: 06/04/24 18:45 Attending Provider: Jose Robbins Admit Provider: Jason Upton Primary Care Provider: Barrington Joshi Other Providers: Jason Upton; Rajiv De La Rosa Hospital Stay Data Consultations 06/04/24 16:31 ED Decision to Admit Stat 06/05/24 10:13 Consult Cardiology Routine Diagnostic Imagining Performed 06/04/24 15:38 CT Abd and Pelvis [CT abd pelvis IV con only] Stat CT for pulmonary embolism PE [CT angio chest PE protocol] Stat Pending Results Patient Have Any Pending Studies at Discharge: No Coding Diagnoses Acute CHF I50.9 Hypomagnesemia E83.42 Pleural effusion on left J90 Acute hypoxemic respiratory failure J96.01 Chronic anticoagulation Z79.01 Malnutrition E46 Pulmonary emphysema, unspecified emphysema type J43.9 COPD type: emphysema Emphysema type: unspecified
[2024-06-07 10:35] VITALS: BP 122/65
--- NOTE | 2024-06-07 10:40 | Cardiology Progress Note ---
Date of Service June 07, 2024 Assessment & Plan (1) Heart failure with mid-range ejection fraction (HFmEF): (2) Cardiomyopathy: (3) Moderate aortic regurgitation: (4) S/P mitral valve replacement with bioprosthetic valve: (5) COPD (chronic obstructive pulmonary disease): (6) CAD (coronary artery disease): Plan Okay for discharge, recommend diuretic regimen as follows: Current weight no diuretic 1 pound weight gain furosemide 20 mg 2 or >2 pound weight gain furosemide 40 mg Otherwise, continue her usual cardiac medications of lisinopril, metoprolol, spironolactone, amiodarone, atorvastatin, clopidogrel. She already has an appointment scheduled with Stephanie Smiley PA-C in heart failure clinic in the next 1 to 2 weeks. Admission and Anticipated Discharge Date Admission Date: June 04, 2024 Subjective Uneventful night. Patient feels well and is being discharged today. No chest pain, dyspnea at rest, palpitations, or lightheadedness. Telemetry showed sinus rhythm with multifocal PVCs, rate 60-80 bpm. Physical Exam Physical Exam: Appears comfortable. BP 153/67 mmHg. Pulse 58 bpm and regular with ectopy. Respirations 20 unlabored. Skin: No unusual rash, systemic lesions, or ecchymoses. HEENT: Unremarkable. Neck: Jugular venous pulse at the clavicle at 90 degrees with increased respiratory variation. No carotid bruits. Lungs: Markedly decreased breath sounds with dullness left base, no obvious wheezing or accessory muscle use. Cardiac: Regular rhythm with faint heart sounds, 2/6 basal systolic ejection murmur with intact aortic closure sound, despite known aortic insufficiency no obvious diastolic murmur. Abdomen: Benign. Extremities: No edema, peripheral pulses intact Neurologic: Normal affect and conversation, grossly nonfocal. Results & Data Laboratory Results Normal electrolytes, BUN 17, creatinine 1.25. PG Care Time/CCT Total # of Minutes Spent Total Time Spent with Patient: Total time spent is greater than 50% in coordination of care (as documented) at patient's floor/unit and/or counseling patient: Coding Level of Care Code 10316 SUB INP/OBS CARE 2/35MIN Diagnoses Heart failure with mid-range ejection fraction (HFmEF) I50.22 Cardiomyopathy I42.9 Moderate aortic regurgitation I35.1 S/P mitral valve replacement with bioprosthetic valve Z95.3 Pulmonary emphysema, unspecified emphysema type J43.9 COPD type: emphysema Emphysema type: unspecified Coronary artery disease involving douglas coronary artery of douglas heart without angina pectoris I25.10 Coronary Disease-Associated Artery/Lesion type: douglas artery Hoh vs. transplanted heart: douglas heart Associated angina: without angina (5) COPD (chronic obstructive pulmonary disease) COPD type: emphysema Emphysema type: unspecified Qualified Code(s): J43.9 - Emphysema, unspecified (6) CAD (coronary artery disease) Coronary Disease-Associated Artery/Lesion type: douglas artery Hoh vs. transplanted heart: douglas heart Associated angina: without angina Qualified Code(s): I25.10 - Atherosclerotic heart disease of douglas coronary artery without angina pectoris
== END 2024-06-07 11:17 | disposition home or self-care (01) | DRG 291 ==
LOC: ED 12:36 → EDINP 18:45 → SUATTDRO 18:45 → 2N 20:35

== ENCOUNTER 2024-08-17 09:00 | Inpatient (IN) ==
--- NOTE | 2024-08-17 09:10 | Emergency Department Note ---
Impression & Plan Generalized weakness, Hypomagnesemia, Acute hypoxemic respiratory failure, Acute exacerbation of CHF (congestive heart failure), Elevated brain natriuretic peptide (BNP) level ED Provider Note HISTORY OF PRESENT ILLNESS: Patient is a 64-year-old female presenting with shortness of breath and weakness. Patient reports that over the last week she has been "filling up with fluid." She reports that she is taking her diuretic 3 times a day for the last week. Reports that despite taking her diuretic, she still feels full of fluid. She wears 2 L nasal cannula at baseline. She denies any chest pain. Reports that progressively over the last week she has been getting weaker and having difficulties getting up secondary to feeling so lightheaded. Reports that today when trying to get up out of bed, she got so lightheaded she actually fell back into her bed. Denies loss of consciousness. She states she does feel very short of breath. She has had a nonproductive cough for the last few weeks. Denies any fevers or recent sick contact exposures. She is on Plavix. Reports has had a decreased appetite in the past week. Reports she has not had any solid food in over a week secondary to lack of an appetite. EMS reported that the patient had sats of 85% on her 2 L so they increased her to 6 L for saturations of 95%. ROS: as above PHYSICAL EXAM: Constitutional: Patient appears in no acute distress. HENT: Head: Normocephalic and atraumatic. Eyes: EOMI, PERRL Mouth/Throat: Mucous membranes moist. Neck: Trachea midline. Neck supple. Cardiovascular: RRR, No murmurs, rubs or gallops. Intact distal pulses. Pulmonary/Chest: No respiratory distress. Breath sounds clear and equal bilaterally. Decreased breath sounds in left lung base. On 4 L nasal cannula satting 91%. Abdominal: Abdomen soft, no tenderness, rebound or guarding. Musculoskeletal: No tenderness or deformity noted. +2 pitting edema of bilateral lower extremities extending to the mid tibias. Skin: Warm and dry. No rash, erythema, pallor or cyanosis Psychiatric: Appropriate mood and affect for situation. Neurological: Alert and keenly responsive. CN II-XII grossly intact, moving all extremities equally and fully. MDM: - Vitals signs showed hypertension - History obtained via patient. History as above. - Chronic conditions affecting care: HLD; anxiety/depression; CHF; CAD; HTN; paroxysmal Afib - Differential diagnoses include, but are not limited to: Congestive heart failure; acute coronary syndrome; COPD/asthma exacerbation; pulmonary edema; pulmonary embolism; pneumonia; pneumothorax; viral syndrome - Order placed for continuous cardiac monitoring. At this time, monitor showed rate of 75 bpm with normal sinus rhythm, per my interpretation. - External medical records reviewed. Heart failure visit note dated 06/24/2024 was reviewed. Patient's baseline at dry weight is 80-83 pounds. Her Lasix is at 20 mg daily. - EKG image interpreted by myself showed normal sinus rhythm. Rate tachycardic at 103 bpm. QT 428. No acute ischemic changes. However, noted to have significant artifact at baseline in most leads. - Laboratory workup interpreted by myself showed slight leukocytosis (WBC 11.03); elevated INR (1.4); elevated creatinine from baseline (Cr 1.57); elevated BNP (2778); hypomagnesemia (Mg 1.2); elevated total bilirubin (1.5); transaminitis (AST 99; ALT 64); elevated troponin (52.7); normal TSH - COVID/flu/RSV negative - CXR image reviewed by myself showed some pulmonary vascular congestion, per my interpretation. Radiology notes pulmonary edema and left larger than right pleural effusions. - On chart review, patient is up 7.3 kg since last weight in chart on 08/09/2024. - Patient's oxygen requirement in the ER up to 6L NC. - Patient given 1g IV magnesium for electrolyte replacement - Discussion was had with case reviewer about patient's case and need for admission - Hospitalist consulted for admission - [facility] [place] [facility] for further evaluation and management. ASSESSMENT AND PLAN: Diagnosis: Generalized weakness; acute CHF exacerbation; acute hypoxic respiratory failure; elevated BNP; hypomagnesemia Plan: Admit Past Med/Surg History Problem List (Updated 08/17/24 @ 11:16 by Edna Campbell MD) Elevated brain natriuretic peptide (BNP) level (Acute) Acute exacerbation of CHF (congestive heart failure) (Acute) Acute hypoxemic respiratory failure (Acute) Hypomagnesemia (Acute) Generalized weakness (Acute) HFrEF (heart failure with reduced ejection fraction) BMI < 18.5 Moderate aortic regurgitation Heart failure with mid-range ejection fraction (HFmEF) Pancolitis (Acute) Nausea & vomiting (Acute) Pleural effusion on left (Acute) Elevated brain natriuretic peptide (BNP) level (Acute) Acute hypoxemic respiratory failure (Acute) Pulmonary edema (Acute) Acute CHF (Acute) Hypomagnesemia (Acute) Acute dyspnea (Acute) Ambulatory dysfunction CVA (cerebral vascular accident) Subacute ischemia [facility] Closed rib fracture (Acute ~10/16/23) acute fractures of the right posterior 8th and 9th ribs. Note that both ribs are fractured at 2 sites. Allergic rhinitis URI (upper respiratory infection) Hypothyroidism due to amiodarone History of recent pneumonia Chronic respiratory failure with hypoxia Pneumonia (Acute) Opiate abuse, continuous (Acute) BRITTNEY (acute kidney injury) Paroxysmal atrial flutter Abnormal CT scan, chest Atrial flutter with rapid ventricular response assisted prescription opiate use Chronic anticoagulation Paroxysmal atrial fibrillation Pneumonia (Acute) Cervicalgia (HFpEF) heart failure with preserved ejection fraction Collapse of left lung Elevated INR Atelectasis Abnormal EKG History of aortic valve repair NSVT (nonsustained ventricular tachycardia) Severe sepsis Malnutrition Elevated troponin COPD (chronic obstructive pulmonary disease) (Acute) Acute dehydration (Acute) Non-ST elevation [place] (NSTEMI) (Acute) Hypomagnesemia (Acute) Positive colorectal cancer screening using Cologuard test per pt reason for scheduled colonoscopy Back pain Hypokalemia Asthma Bronchitis Emphysema lung Gallbladder problem Encounter for pre-operative examination Tobacco dependence Opioid dependence Abnormal diffusion capacity determined by pulmonary function test Personal history of nicotine dependence H/O stroke without residual deficits Anemia Vitamin D deficiency (Acute) Vitamin B12 deficiency (Acute) Restless legs syndrome (Acute) Raynauds disease (Acute) Paroxysmal SVT (supraventricular tachycardia) (Acute) Neuropathy (Acute) Low back pain (Acute) Insomnia (Acute) Congestive heart failure (Acute) Chronic pain (Acute) Cervical radiculopathy at C8 (Acute) Aortic regurgitation (Acute) Sore throat Cough Folate deficiency TIA (transient ischemic attack) Palpitations Tendinitis of left rotator cuff Cervical radicular pain Cardiomyopathy Vomiting Nausea and vomiting Low BMI Bilateral edema of lower extremity (Acute) Severe protein-calorie malnutrition Hypoxia (Acute) Dizziness (Acute) Acute respiratory failure with hypoxia Hypokalemia Acute on chronic diastolic CHF (congestive heart failure) recent diagnosis 01/07/23 at [facility]--pt states she is improving History of nicotine dependence Chronic dyspnea oxygen prn Diastolic CHF Hx laparoscopic cholecystectomy (01/13/21) Laparoscopic Cholecystectomy Dr. Pulido 01-13-2021 Cholecystitis Pulmonary hypertension S/P mitral valve replacement with bioprosthetic valve 2005 Osteoporosis CAD (coronary artery disease) Hypertension Medical History Atrial flutter Hypoglycemia Acute hyperkalemia Sepsis Hyperkalemia Flu Sepsis Elevated troponin I level Acute respiratory failure with hypoxia and hypercapnia Positive colorectal cancer screening using Cologuard test On anticoagulant therapy Chronic combined systolic (congestive) and diastolic (congestive) heart failure Bilateral pleural effusion Mitral valve disease History of aortic valve disease Chronic back pain Arthritis Hyperlipidemia Ischemic stroke Emphysema/COPD Fibromyalgia Peripheral neuropathy GERD (gastroesophageal reflux disease) Depression Anxiety Transient ischemic attack (TIA) Hyperlipidemia On home oxygen therapy Surgical History History of esophagogastroduodenoscopy (EGD) History of colonoscopy History of heart valve replacement History of lung biopsy History of bronchoscopy H/O: hysterectomy Family History Mother Slow to wake up after anesthesia Sister Family history of diabetes mellitus Father Stroke Osteoarthritis Other Coronary heart disease Denies family history of Ovarian cancer Prostate cancer Breast cancer Colorectal cancer Social History (Updated 08/09/24 @ 10:30 by RENAE Dhaliwal) Smoking Status: Former smoker Tobacco Type: Cigarettes Age Started Using Tobacco: 18; Age Quit Using Tobacco: 59; packs per day: 0.5; Second Hand Exposure: Yes (FAMILY SMOKED); Do You Dip or Chew Tobacco: No; Hx Alcohol Use: No Hx Substance Use: No Preferred Language: Tuvaluan Communication Ability: Effective Hearing Ability: Normal Legal Stenographer Required: No Beliefs That Will Affect Care: None marital status: Current Living Situation: Significant Other Current Living Situation Comment: Mac (boyfriend) current occupational status: unemployed and disabled How many Children do You have: 2 Feels Safe at Home: Yes Childhood Exposure to Second-Hand Smoke: Yes Diet: regular during the past year weight has: decreased > 10 lbs Dental Care, Regularly: No Physical Activity Frequency: 3-4 Times per Week Seatbelt Use: always Sunscreen Use: Yes Assistive Devices: Oxygen - Continuous and Walker Allergies Allergies Allergy/AdvReac Type Severity Reaction Status Date / Time aspirin Allergy Intermediate Hives Verified 07/15/24 10:58 hydrochlorothiazide Allergy Intermediate RASH/"Sick Verified 07/15/24 10:58 in stomach" trazodone AdvReac Severe Vomiting Verified 07/15/24 10:58 furosemide AdvReac Intermediate ELEVATED Verified 07/15/24 10:58 CREATINE tramadol AdvReac Mild Nausea Verified 07/15/24 10:58 Home Meds Home Medications Medication Instructions Recorded Confirmed ipratropium 0.5 mg-albuterol 3 mg 3 ml NEB QID PRN shortness of 02/07/23 08/17/24 (2.5 mg base)/3 mL nebulization breath or wheezing soln Oxygen Home 02/26/24 08/09/24 gabapentin 300 mg capsule 300 mg PO DAILY 02/26/24 08/17/24 furosemide 20 mg tablet 0 mg PO QAM Fluid Retention 08/17/24 08/17/24 Previous Rx's Medication Instructions Recorded nebulizer accessories #5 ea 02/13/23 nebulizers #1 ea 02/13/23 Wheeled Walker #1 ea 02/22/23 sodium chloride 7 % for 4 ml NEB BIDR #240 mL 05/11/23 nebulization lisinopril 2.5 mg tablet 2.5 mg PO QAM #90 tabs 06/21/23 cholecalciferol (vitamin D3) 50 4,000 unit PO QAM 90 days #180 tabs 08/18/23 mcg (2,000 unit) tablet (Vitamin D3) spironolactone 25 mg tablet 25 mg PO DAILY #90 tabs 11/07/23 atorvastatin 40 mg tablet 40 mg PO QPM #90 tabs 02/23/24 clopidogrel 75 mg tablet 75 mg PO QPM #90 tabs 02/28/24 montelukast 10 mg tablet 10 mg PO QAM #90 tabs 02/29/24 abaloparatide (Tymlos) 80 mcg (0.04 mL) subcut DAILY 03/04/24 #1.56 mL pen needle, diabetic 32 gauge x #100 ea 03/05/24" (BD Aruna 2nd Gen Pen Needle) levetiracetam 500 mg tablet 500 mg PO BID 90 days #180 tabs 05/10/24 (Keppra) pantoprazole 40 mg tablet,delayed 40 mg PO DAILY #90 tabs 05/28/24 release amiodarone 200 mg tablet 200 mg PO QAM #90 tabs 06/10/24 cyanocobalamin (vitamin B-12) 1,000 mcg PO QAM #90 tabs 06/10/24 1,000 mcg tablet fluticasone fur. 200 mcg-umeclid 1 inh inhalation DAILY #60 ea 06/10/24 62.5 mcg-vilant 25 mcg inhalat.powder (Trelegy Ellipta) folic acid 1 mg tablet 1 mg PO QAM #90 tabs 06/10/24 metoprolol succinate 25 mg 12.5 mg (1/2 x 25 mg) PO DAILY #45 06/10/24 tablet,extended release 24 hr tabs mirtazapine 15 mg tablet 15 mg PO HS #90 tabs 06/10/24 levothyroxine 150 mcg tablet 150 mcg PO DAILY #90 tabs 08/12/24 oxycodone 5 mg tablet 5 mg PO Q4H PRN pain #120 tabs 08/13/24 Results & Data (ED) Vital Signs Vital Signs - 24 hr 08/17/24 09:12 08/17/24 09:21 08/17/24 09:27 Temperature 37.2 C Temperature Source Temporal Artery Scan Pulse Rate 75 77 Respiratory Rate 20 Respiratory Effort / Characteristics Non-Labored Spontaneous Respiratory Depth Normal Respiratory Pattern Regular Blood Pressure 185/78 H Blood Pressure Mean 113 Pulse Oximetry 94 88 L Oxygen Delivery Method Room Air Nasal Cannula Oxygen Flow Rate 4 Sepsis Recent Fever Within 48 Hours No Sepsis New/Unexplained Change in Mental Status No Sepsis Action Taken by Nursing No Action Required Oxygen Flow Rate - Titration 6 Pulse Oximetry Post Tiitration 95 08/17/24 09:37 08/17/24 10:38 Temperature Temperature Source Pulse Rate Respiratory Rate Respiratory Effort / Characteristics Respiratory Depth Respiratory Pattern Blood Pressure Blood Pressure Mean Pulse Oximetry 86 L 99 Oxygen Delivery Method Nasal Cannula Nasal Cannula Oxygen Flow Rate 6 6 Sepsis Recent Fever Within 48 Hours Sepsis New/Unexplained Change in Mental Status Sepsis Action Taken by Nursing Oxygen Flow Rate - Titration 7 5 Pulse Oximetry Post Tiitration 96 97 Laboratory Data 08/17/24 09:08 08/17/24 10:58 Lab Results 08/17/24 08/17/24 08/17/24 Range/Units 09:08 09:09 09:15 WBC 11.03 H (4.8-10.8) K/ul RBC 5.85 H (4.20-5.40) M/uL Hgb 12.4 (12.0-16.0) g/dl Hct 41.8 (37.0-47.0) % MCV 71.5 L (80.0-100.0) fL MCH 21.2 L (25.0-34.0) pg MCHC 29.7 L (32.0-36.0) g/dL RDW Std Deviation 54.4 H (36.4-46.3) fL RDW Coeff of Claudette 22.5 H (11.5-14.5) % Plt Count 178 (130-400) K/uL Immature Gran % (Auto) 1.1 % Neut % (Auto) 82.4 % Lymph % (Auto) 6.3 % [place] % (Auto) 9.9 % Eos % (Auto) 0.0 % Baso % (Auto) 0.3 % Neut # (Auto) 9.10 H (1.40-6.50) K/uL Lymph # (Auto) 0.69 L (1.20-3.40) K/uL [place] # (Auto) 1.09 H (0.11-0.59) K/uL Eos # (Auto) 0.00 (0.00-0.50) K/uL Baso # (Auto) 0.03 (0.00-0.20) K/uL Immature Gran # (Auto) 0.12 (0.01-0.20) K/uL Toxic Vacuolation 1+ Polychromasia 1+ Anisocytosis Present Microcytosis Present PT Cancelled INR Cancelled Sodium 136 (136-145) mmol/L Potassium TNP Chloride 95 L (98-107) mmol/L Carbon Dioxide 36 H (21-32) mmol/L Anion Gap 5 (3-11) BUN 19 (6-23) mg/dl Creatinine 1.57 H (0.6-1.2) mg/dl Est Cr Clr Drug Dosing 26.3 ml/min eGFR 36.84 BUN/Creatinine Ratio 12.1 (10-20) Glucose 88 (70-99(Fasting)) mg/dl Calcium 8.5 L (8.6-10.3) mg/dl Magnesium 1.2 L (1.7-2.4) mg/dl Total Bilirubin 1.5 H (0.2-1.0) mg/dl AST TNP ALT 64 H (7-52) U/L Alkaline Phosphatase 196 H (34-104) U/L Troponin I High Sens 52.7 H* (0-14) pg/ml B-Natriuretic Peptide 2778 H (0-100) pg/ml Total Protein 6.2 (6.0-8.3) gm/dl Albumin 3.3 L (3.4-5.0) gm/dl Globulin 2.9 (2.5-4.0) gm/dl Albumin/Globulin Ratio 1.1 (0.9-2) TSH 0.610 (0.300-4.500) uIu/ml SARS-CoV-2 (PCR) NEGATIVE (Negative) Influenza Type A (PCR) Negative (Neg) Influenza Type B (PCR) Negative (Neg) RSV (RT-PCR) Negative (Neg) 08/17/24 08/17/24 Range/Units 10:39 10:58 WBC (4.8-10.8) K/ul RBC (4.20-5.40) M/uL Hgb (12.0-16.0) g/dl Hct (37.0-47.0) % MCV (80.0-100.0) fL MCH (25.0-34.0) pg MCHC (32.0-36.0) g/dL RDW Std Deviation (36.4-46.3) fL RDW Coeff of Claudette (11.5-14.5) % Plt Count (130-400) K/uL Immature Gran % (Auto) % Neut % (Auto) % Lymph % (Auto) % [place] % (Auto) % Eos % (Auto) % Baso % (Auto) % Neut # (Auto) (1.40-6.50) K/uL Lymph # (Auto) (1.20-3.40) K/uL [place] # (Auto) (0.11-0.59) K/uL Eos # (Auto) (0.00-0.50) K/uL Baso # (Auto) (0.00-0.20) K/uL Immature Gran # (Auto) (0.01-0.20) K/uL Toxic Vacuolation Polychromasia Anisocytosis Microcytosis PT 15.1 H INR 1.4 H Sodium (136-145) mmol/L Potassium 3.8 Chloride (98-107) mmol/L Carbon Dioxide (21-32) mmol/L Anion Gap (3-11) BUN (6-23) mg/dl Creatinine (0.6-1.2) mg/dl Est Cr Clr Drug Dosing ml/min eGFR BUN/Creatinine Ratio (10-20) Glucose (70-99(Fasting)) mg/dl Calcium (8.6-10.3) mg/dl Magnesium (1.7-2.4) mg/dl Total Bilirubin (0.2-1.0) mg/dl AST 99 H ALT (7-52) U/L Alkaline Phosphatase (34-104) U/L Troponin I High Sens (0-14) pg/ml B-Natriuretic Peptide (0-100) pg/ml Total Protein (6.0-8.3) gm/dl Albumin (3.4-5.0) gm/dl Globulin (2.5-4.0) gm/dl Albumin/Globulin Ratio (0.9-2) TSH (0.300-4.500) uIu/ml SARS-CoV-2 (PCR) (Negative) Influenza Type A (PCR) (Neg) Influenza Type B (PCR) (Neg) RSV (RT-PCR) (Neg) Administered Medications Discontinued Medications Magnesium Sulfate/Dextrose (Magnesium Sulfate / D5w) 1 gm in 100 mls @ 100 mls/hr IV NOW STA Stop: 08/17/24 11:50 Last Infusion: 08/17/24 12:18 Dose: Infused Documented By: Admin: 08/17/24 11:15 Dose: 100 mls/hr Documented By: SUBHA Imaging Data Radiologist's Impression: Chest X-Ray 08/17/24 09:08 Clinical History: Dyspnea Technique: A frontal view of the chest was obtained Comparison is made to the prior examination dated 06/04/2024 Findings: There is an unchanged moderate sized left pleural effusion and there is a suspected small right pleural effusion. The heart is mildly enlarged. No definite pneumothorax is seen. There is worsened diffuse interstitial prominence that may be due to pulmonary edema. There is more focal left lower lobe opacity that could be due to either atelectasis or pneumonia No fracture is noted. Sternal wires are present Impression: 1. Cardiomegaly and pulmonary edema 2. Left larger than right pleural effusions 3. Left lower lobe opacity that could be due to either atelectasis or pneumonia ACT 112: Positive. There are findings on this exam that require communication between the performing entity and the patient following Patient Test Result Information Act ([place] ACT 112) guidelines. Electronically signed by Christiano Robles 08-17-2024 10:22 AM Discharge Plan Visit Data Chief Complaint: Weakness ED Provider: Edna Campbell Discharge Problem: Generalized weakness, Hypomagnesemia, Acute hypoxemic respiratory failure, Acute exacerbation of CHF (congestive heart failure), Elevated brain natriuretic peptide (BNP) level Forms Stand Alone Forms: [facility] Prescriptions Prescriptions: No Action (DME) nebulizers [facility] [place] See Rx Instructions .Route Qty: 1 0RF Rx Instructions: Use with albuterol and saline nebulizer solution as directed (DME) nebulizer accessories Misc See Rx Instructions .Route Qty: 5 3RF Rx Instructions: TUBING AND ADULT ADMINISTRATION DEVICE/MASK (DME) Wheeled Walker Misc See Rx Instructions .Route Qty: 1 0RF Rx Instructions: As directed sodium chloride 7 % solution for nebulization 4 ml NEB BIDR Qty: 240 0RF lisinopril 2.5 mg tablet 2.5 mg PO QAM Qty: 90 3RF cholecalciferol (vitamin D3) [Vitamin D3] 50 mcg (2,000 unit) tablet 4,000 unit PO QAM 90 Days Qty: 180 3RF spironolactone 25 mg tablet 25 mg PO DAILY Qty: 90 3RF atorvastatin 40 mg tablet 40 mg PO QPM Qty: 90 3RF clopidogrel 75 mg tablet 75 mg PO QPM Qty: 90 3RF montelukast 10 mg tablet 10 mg PO QAM Qty: 90 3RF levetiracetam [Keppra] 500 mg tablet 500 mg PO BID 90 Days Qty: 180 3RF pantoprazole 40 mg tablet,delayed release (DR/EC) 40 mg PO DAILY Qty: 90 3RF amiodarone 200 mg tablet 200 mg PO QAM Qty: 90 3RF metoprolol succinate 25 mg tablet extended release 24 hr 12.5 mg PO DAILY Qty: 45 3RF mirtazapine 15 mg tablet 15 mg PO HS Qty: 90 1RF cyanocobalamin (vitamin B-12) 1,000 mcg tablet 1,000 mcg PO QAM Qty: 90 3RF Trelegy Ellipta 200-62.5-25 mcg blister with device 1 inh inhalation DAILY Qty: 60 5RF folic acid 1 mg tablet 1 mg PO QAM Qty: 90 3RF levothyroxine 150 mcg tablet 150 mcg PO DAILY Qty: 90 3RF oxycodone 5 mg tablet 5 mg PO Q4H PRN (Reason: pain) Qty: 120 0RF gabapentin 300 mg capsule 300 mg PO DAILY Rx Instructions: Last filled 09/2023 (DME) Oxygen Home Liters Per Minute See Rx Instructions .Route Rx Instructions: 3 L/min at all times as directed Tymlos 80 mcg (3,120 mcg/1.56 mL) pen injector 80 mcg subcut DAILY Qty: 1.56 11RF Rx Instructions: inject into abdomen; do not inject within 2 inches of belly button/navel; rotate sites (DME) pen needle, diabetic [BD Aruna 2nd Gen Pen Needle] 32 gauge x 5/32" needle See Rx Instructions .Route Qty: 100 0RF Rx Instructions: As directed ipratropium-albuterol 0.5 mg-3 mg(2.5 mg base)/3 mL solution for nebulization 3 ml NEB QID PRN (Reason: shortness of breath or wheezing) furosemide 20 mg tablet 0 mg PO QAM Rx Instructions: Listed on pt's allergy list. Last filled 11/2023 but last verified 06/2024 by . Unable to verify if pt still taking. Original Directions: 20mg by mouth every morning. Referrals Referrals: Barrington Joshi MD [Primary Care Provider] -
[2024-08-17 09:51] LABS: Hematocrit (blood only) 41.8 % (37.0-47.0); Hemoglobin 12.4 g/dl (12.0-16.0); Mean Corpuscular Hemoglobin 21.2 pg (25.0-34.0); Mean Corpuscular Hgb Conc 29.7 g/dL (32.0-36.0); Mean Corpuscular Volume 71.5 fL (80.0-100.0); Platelet Count 178 K/uL (130-400); RDW Coefficient of Variation 22.5 % (11.5-14.5); RDW Standard Deviation 54.4 fL (36.4-46.3); Red Blood Count 5.85 M/uL (4.20-5.40); White Blood Count 11.03 K/ul (4.8-10.8)
[2024-08-17 10:06] LABS: Anisocytosis Present; Basophils # (auto) 0.03 K/uL (0.00-0.20); Basophils % (auto) 0.3 %; Immature Granulocytes # (auto) 0.12 K/uL (0.01-0.20); Immature Granulocytes % (auto) 1.1 %; Lymphocytes # (auto) 0.69 K/uL (1.20-3.40); Lymphocytes % (auto) 6.3 %; Microcytosis Present; Monocytes # (auto) 1.09 K/uL (0.11-0.59); Monocytes % (auto) 9.9 %; Neutrophils % (auto) 82.4 %; Polychromasia 1+; Toxic Vacuolation 1+
[2024-08-17 10:11] LABS: Influenza A virus by PCR Negative (Neg); Influenza B virus by PCR Negative (Neg); RSV by PCR Negative (Neg); SARS CoV2 RNA(COVID-19) Ceph NEGATIVE (Negative)
--- NOTE | 2024-08-17 10:23 | XRay Report ---
Clinical History: Dyspnea Technique: A frontal view of the chest was obtained Comparison is made to the prior examination dated 06/04/2024 Findings: There is an unchanged moderate sized left pleural effusion and there is a suspected small right pleural effusion. The heart is mildly enlarged. No definite pneumothorax is seen. There is worsened diffuse interstitial prominence that may be due to pulmonary edema. There is more focal left lower lobe opacity that could be due to either atelectasis or pneumonia No fracture is noted. Sternal wires are present Impression: 1. Cardiomegaly and pulmonary edema 2. Left larger than right pleural effusions 3. Left lower lobe opacity that could be due to either atelectasis or pneumonia ACT 112: Positive. There are findings on this exam that require communication between the performing entity and the patient following Patient Test Result Information Act ([place] ACT 112) guidelines. Electronically signed by Christiano Robles 08-17-2024 10:22 AM
[2024-08-17 10:50] LABS: Alanine Aminotransferase 64 U/L (7-52); Albumin Globulin Ratio 1.1 (0.9-2); Albumin Level 3.3 gm/dl (3.4-5.0); Alkaline Phosphatase 196 U/L (34-104); Anion Gap 5 (3-11); BUN Creatinine Ratio 12.1 (10-20); Bilirubin,Total 1.5 mg/dl (0.2-1.0); Blood Urea Nitrogen 19 mg/dl (6-23); Calcium 8.5 mg/dl (8.6-10.3); Carbon Dioxide 36 mmol/L (21-32); Chloride 95 mmol/L (98-107); Creatinine Clr Calc Pharmacy 26.3 ml/min; Globulin 2.9 gm/dl (2.5-4.0); Glucose 88 mg/dl (70-99(Fasting)); Magnesium 1.2 mg/dl (1.7-2.4); Sodium 136 mmol/L (136-145); Total Protein 6.2 gm/dl (6.0-8.3); Troponin I High Sensitivity 52.7 pg/ml (0-14)
--- NOTE | 2024-08-17 11:12 | Electrocardiogram Report ---
Test Reason : Blood Pressure : */* mmHG Vent. Rate : 103 BPM Atrial Rate : 103 BPM P-R Int : 172 ms QRS Dur : 92 ms QT Int : 428 ms P-R-T Axes : 38 76 95 degrees QTcB Int : 560 ms Poor data quality, interpretation may be adversely affected Sinus tachycardia Possible Left atrial enlargement Nonspecific T wave abnormality Abnormal ECG When compared with ECG of 04-Jun-2024 12:46, Nonspecific T wave abnormality, worse in Lateral leads QT has lengthened Confirmed by Barrington Dalton ([id number]) on 08/17/2024 11:12:18 AM Referred By: REFERRED SELF Confirmed By: Barrington Dalton
[2024-08-17] MEDS: MAGNESIUM SULFATE / D5W 1 GM/100 ML BAG IV STA (11:15)
[2024-08-17 11:26] LABS: INR 1.4 (0.9-1.1); Prothrombin Time 15.1 Seconds (9.0-12.0)
[2024-08-17 11:32] LABS: Potassium 3.8 mmol/L (3.5-5.1)
[2024-08-17] MEDS ORDERED: ALBUT/IPRATROP 3MG/0.5MG NEB 3 ML VIAL NEB PRN ×2 (12:25→14:12)
[2024-08-17] MEDS ORDERED: NON-FORMULARY MEDICATION (Fluticasone-Umeclidin-Vilanter [Trelegy Ellipta] 200-62.5-25 mcg INH SCH (12:30)
--- NOTE | 2024-08-17 12:56 | History & Physical Report ---
Date of Service August 17, 2024 Assessment & Plan (1) Acute exacerbation of CHF (congestive heart failure): Plan: -lasix 40IV BID started -spironolactone -lisinopril -h/o AVR -echo -cardiology consulted (2) CAD (coronary artery disease): Plan: -plavix -atorvastatin (3) Paroxysmal atrial fibrillation: Plan: -amiodarone -not on anticoagulation (4) COPD (chronic obstructive pulmonary disease): Plan: -duonebs prn -con't home inhaliers -singular (5) BRITTNEY (acute kidney injury): Plan: -cr 1.56 -baseline 1.24 -monitor while diuresis with lasix (6) Malnutrition: Plan: -dietary consulted History of Present Illness Chief Complaint: Lower extremity swelling and weakness Primary Care Provider: Barrington Joshi MD Pt is a 64 y/o female with pmh of CHF, CAD,aortic valve replacement, COPD, HTN, PAF, malnutrition who presents with increasing edema and SOB over the last week. Pt has been taking her lasix 3 times daily over the past week, but still feeling the edema is not improving. Pt also has been feeling lightheaded and having difficulty getting out of bed. She denies any fever or sick contacts. Pt had 02 sats of 85% on RA when she was brought in be EMS. She is now on 6LNC and her sats are 95%. Her labs show a BNP >2000 and CXR shows pulmonary edema with b/l pleural effusions. Pt was give a dose of lasix IV and will be admitted for further treatment of CHF exacerbation. Allergies Allergy/AdvReac Type Severity Reaction Status Date / Time aspirin Allergy Intermediate Hives Verified 07/15/24 10:58 hydrochlorothiazide Allergy Intermediate RASH/"Sick Verified 07/15/24 10:58 in stomach" trazodone AdvReac Severe Vomiting Verified 07/15/24 10:58 furosemide AdvReac Intermediate ELEVATED Verified 07/15/24 10:58 CREATINE tramadol AdvReac Mild Nausea Verified 07/15/24 10:58 Home Medications Medication Instructions Recorded Confirmed Type ipratropium 0.5 mg-albuterol 3 mg 3 ml NEB QID PRN shortness of 02/07/23 08/17/24 History (2.5 mg base)/3 mL nebulization breath or wheezing soln nebulizer accessories #5 ea 02/13/23 08/09/24 Rx nebulizers #1 ea 02/13/23 08/09/24 Rx Wheeled Walker #1 ea 02/22/23 08/09/24 Rx sodium chloride 7 % for 4 ml NEB BIDR #240 mL 05/11/23 08/17/24 Rx nebulization lisinopril 2.5 mg tablet 2.5 mg PO QAM #90 tabs 06/21/23 08/17/24 Rx cholecalciferol (vitamin D3) 50 4,000 unit PO QAM 90 days #180 tabs 08/18/23 08/17/24 Rx mcg (2,000 unit) tablet (Vitamin D3) spironolactone 25 mg tablet 25 mg PO DAILY #90 tabs 11/07/23 08/17/24 Rx atorvastatin 40 mg tablet 40 mg PO QPM #90 tabs 02/23/24 08/17/24 Rx Oxygen Home 02/26/24 08/09/24 History gabapentin 300 mg capsule 300 mg PO DAILY 02/26/24 08/17/24 History clopidogrel 75 mg tablet 75 mg PO QPM #90 tabs 02/28/24 08/17/24 Rx montelukast 10 mg tablet 10 mg PO QAM #90 tabs 02/29/24 08/17/24 Rx abaloparatide (Tymlos) 80 mcg (0.04 mL) subcut DAILY 03/04/24 08/17/24 Rx #1.56 mL pen needle, diabetic 32 gauge x #100 ea 03/05/24 08/09/24 Rx 5/32" (BD Aruna 2nd Gen Pen Needle) levetiracetam 500 mg tablet 500 mg PO BID 90 days #180 tabs 05/10/24 08/17/24 Rx (Keppra) pantoprazole 40 mg tablet,delayed 40 mg PO DAILY #90 tabs 05/28/24 08/17/24 Rx release amiodarone 200 mg tablet 200 mg PO QAM #90 tabs 06/10/24 08/17/24 Rx cyanocobalamin (vitamin B-12) 1,000 mcg PO QAM #90 tabs 06/10/24 08/17/24 Rx 1,000 mcg tablet fluticasone fur. 200 mcg-umeclid 1 inh inhalation DAILY #60 ea 06/10/24 08/17/24 Rx 62.5 mcg-vilant 25 mcg inhalat.powder (Trelegy Ellipta) folic acid 1 mg tablet 1 mg PO QAM #90 tabs 06/10/24 08/17/24 Rx metoprolol succinate 25 mg 12.5 mg (1/2 x 25 mg) PO DAILY #45 06/10/24 08/17/24 Rx tablet,extended release 24 hr tabs mirtazapine 15 mg tablet 15 mg PO HS #90 tabs 06/10/24 08/17/24 Rx levothyroxine 150 mcg tablet 150 mcg PO DAILY #90 tabs 08/12/24 08/17/24 Rx oxycodone 5 mg tablet 5 mg PO Q4H PRN pain #120 tabs 08/13/24 08/17/24 Rx furosemide 20 mg tablet 0 mg PO QAM Fluid Retention 08/17/24 08/17/24 History Past Med/Surg History Problem List (Updated 08/17/24 @ 11:16 by Edna Campbell MD) Elevated brain natriuretic peptide (BNP) level (Acute) Acute exacerbation of CHF (congestive heart failure) (Acute) Acute hypoxemic respiratory failure (Acute) Hypomagnesemia (Acute) Generalized weakness (Acute) HFrEF (heart failure with reduced ejection fraction) BMI < 18.5 Moderate aortic regurgitation Heart failure with mid-range ejection fraction (HFmEF) Pancolitis (Acute) Nausea & vomiting (Acute) Pleural effusion on left (Acute) Elevated brain natriuretic peptide (BNP) level (Acute) Acute hypoxemic respiratory failure (Acute) Pulmonary edema (Acute) Acute CHF (Acute) Hypomagnesemia (Acute) Acute dyspnea (Acute) Ambulatory dysfunction CVA (cerebral vascular accident) Subacute ischemia on MRI02/23/2024[facility] Closed rib fracture (Acute ~10/16/23) acute fractures of the right posterior 8th and 9th ribs. Note that both ribs are fractured at 2 sites. Allergic rhinitis URI (upper respiratory infection) Hypothyroidism due to amiodarone History of recent pneumonia Chronic respiratory failure with hypoxia Pneumonia (Acute) Opiate abuse, continuous (Acute) BRITTNEY (acute kidney injury) Paroxysmal atrial flutter Abnormal CT scan, chest Atrial flutter with rapid ventricular response shelter prescription opiate use Chronic anticoagulation Paroxysmal atrial fibrillation Pneumonia (Acute) Cervicalgia (HFpEF) heart failure with preserved ejection fraction Collapse of left lung Elevated INR Atelectasis Abnormal EKG History of aortic valve repair NSVT (nonsustained ventricular tachycardia) Severe sepsis Malnutrition Elevated troponin COPD (chronic obstructive pulmonary disease) (Acute) Acute dehydration (Acute) Non-ST elevation [place] (NSTEMI) (Acute) Hypomagnesemia (Acute) Positive colorectal cancer screening using Cologuard test per pt reason for scheduled colonoscopy Back pain Hypokalemia Asthma Bronchitis Emphysema lung Gallbladder problem Encounter for pre-operative examination Tobacco dependence Opioid dependence Abnormal diffusion capacity determined by pulmonary function test Personal history of nicotine dependence H/O stroke without residual deficits Anemia Vitamin D deficiency (Acute) Vitamin B12 deficiency (Acute) Restless legs syndrome (Acute) Raynauds disease (Acute) Paroxysmal SVT (supraventricular tachycardia) (Acute) Neuropathy (Acute) Low back pain (Acute) Insomnia (Acute) Congestive heart failure (Acute) Chronic pain (Acute) Cervical radiculopathy at C8 (Acute) Aortic regurgitation (Acute) Sore throat Cough Folate deficiency TIA (transient ischemic attack) Palpitations Tendinitis of left rotator cuff Cervical radicular pain Cardiomyopathy Vomiting Nausea and vomiting Low BMI Bilateral edema of lower extremity (Acute) Severe protein-calorie malnutrition Hypoxia (Acute) Dizziness (Acute) Acute respiratory failure with hypoxia Hypokalemia Acute on chronic diastolic CHF (congestive heart failure) recent diagnosis 01/07/23 at [facility]--pt states she is improving History of nicotine dependence Chronic dyspnea oxygen prn Diastolic CHF Hx laparoscopic cholecystectomy (01/13/21) Laparoscopic Cholecystectomy Dr. Pulido 01-13-2021 Cholecystitis Pulmonary hypertension S/P mitral valve replacement with bioprosthetic valve 2005 Osteoporosis CAD (coronary artery disease) Hypertension Medical History Atrial flutter Hypoglycemia Acute hyperkalemia Sepsis Hyperkalemia Flu Sepsis Elevated troponin I level Acute respiratory failure with hypoxia and hypercapnia Positive colorectal cancer screening using Cologuard test On anticoagulant therapy Chronic combined systolic (congestive) and diastolic (congestive) heart failure Bilateral pleural effusion Mitral valve disease History of aortic valve disease Chronic back pain Arthritis Hyperlipidemia Ischemic stroke Emphysema/COPD Fibromyalgia Peripheral neuropathy GERD (gastroesophageal reflux disease) Depression Anxiety Transient ischemic attack (TIA) Hyperlipidemia On home oxygen therapy Surgical History History of esophagogastroduodenoscopy (EGD) History of colonoscopy History of heart valve replacement History of lung biopsy History of bronchoscopy H/O: hysterectomy Family History Mother Slow to wake up after anesthesia Sister Family history of diabetes mellitus Father Stroke Osteoarthritis Other Coronary heart disease Denies family history of Ovarian cancer Prostate cancer Breast cancer Colorectal cancer Social History Smoking Status: Former smoker Tobacco Type: Cigarettes Age Started Using Tobacco: 18; Age Quit Using Tobacco: 59; packs per day: 0.5; Second Hand Exposure: Yes (FAMILY SMOKED); Do You Dip or Chew Tobacco: No; Hx Alcohol Use: No Hx Substance Use: No Preferred Language: [place] Communication Ability: Effective Hearing Ability: Normal Electronics Scale Tester Required: No Beliefs That Will Affect Care: None marital status: Current Living Situation: Significant Other Current Living Situation Comment: Mac (boyfriend) current occupational status: unemployed and disabled How many Children do You have: 2 Feels Safe at Home: Yes Childhood Exposure to Second-Hand Smoke: Yes Diet: regular during the past year weight has: decreased > 10 lbs Dental Care, Regularly: No Physical Activity Frequency: 3-4 Times per Week Seatbelt Use: always Sunscreen Use: Yes Assistive Devices: Oxygen - Continuous and Walker Review of Systems Review of Systems: SOB, lower ext edema CONST: Negative for fever, body aches and chills. HENT: Negative for neck pain/stiffness, headache, congestion, sore throat, swelling. EYES: Negative for discharge/pain or vision changes. RESP: Negative for cough/hemoptysis and shortness of breath. CV: Negative chest pain, difficulty breathing, palpitations. ABD: Negative pain, nausea, vomiting. : Negative increase frequency, dysuria, blood in urine or stool. MUSC: Negative for muscle aches, edema. SKIN: Negative rash, lesions/sores. NEURO: Negative headache, dizziness, weakness. Physical Exam Physical Exam: GENERAL APPEARANCE NAD, activity normal for age, well developed/ well nourished, no cyanosis, pallor, or diaphoresis. EYES lids/conjunctiva normal. EARS/NOSE/THROAT Mucous membranes moist, nares normal, lips/teeth normal uvula midline without oral pharyngeal erythema, exudate or swelling TMs normal bilaterally. No lymphangitis/lymphedema. HEAD/NECK normocephalic atraumatic, no facial trauma, neck is supple. RESPIRATORY respiratory effort normal, speaks in full sentences, no tripod position, no accessory muscle use. Lungs clear to auscultation without rhonchi, wheezes, rales CARDIAC Regular rate and rhythm, no edema. ABDOMINAL Soft, ND/NT. No evidence of fluid wave. No pulsatile masses on exam, rebound tenderness, Calderon sign or pain over Mcburney's point. MUSCLES/EXTREMITIES No abnormal range of motion, no swelling. SKIN Warm, pink and dry. No rashes, dermatoses, petechiae or lesions. NEUROLOGICAL Speech is clear and appropriate. Normal level of consciousness. Gait and coordination are normal. 5/5 strength in all extremities. PSYCH Normal mood and affect. Judgement/competence is appropriate Results & Data Results & Data Vital Signs (Past 12 Hours) Vital Signs Temp Pulse Resp BP Pulse Ox O2 Del Method O2 Flow Rate 08/17/24 10:38 99 Nasal Cannula 6 08/17/24 09:37 86 L Nasal Cannula 6 08/17/24 09:27 88 L Nasal Cannula 4 08/17/24 09:21 77 08/17/24 09:12 37.2 C 75 20 185/78 H 94 Room Air Code Status & VTE Plan Code Status Full code DVT px with heparin sq PG Care Time/CCT Total # of Minutes Spent Total Time Spent with Patient: Total time spent is greater than 50% in coordination of care (as documented) at patient's floor/unit and/or counseling patient: Coding Level of Care Code 54552 INT INP/OBS CARE 2/55MIN Diagnoses Acute exacerbation of CHF (congestive heart failure) I50.9 Coronary artery disease involving [place] coronary artery of [place] heart without angina pectoris I25.10 Coronary Disease-Associated Artery/Lesion type: [place] artery [place] vs. transplanted heart: [place] heart Associated angina: without angina Paroxysmal atrial fibrillation I48.0 Pulmonary emphysema, unspecified emphysema type J43.9 COPD type: emphysema Emphysema type: unspecified BRITTNEY (acute kidney injury) N17.9 Malnutrition E46 (2) CAD (coronary artery disease) Coronary Disease-Associated Artery/Lesion type: [place] artery [place] vs. transplanted heart: [place] heart Associated angina: without angina Qualified Code(s): I25.10 - Atherosclerotic heart disease of [place] coronary artery wi thout angina pectoris (4) COPD (chronic obstructive pulmonary disease) COPD type: emphysema Emphysema type: unspecified Qualified Code(s): J43.9 - Emphysema, unspecified
[2024-08-17] MEDS: oxyCODONE HCL IR 5 MG TAB (IMMEDIATE RELEASE) PO PRN (14:15)
[2024-08-17] MEDS: FOLIC ACID 1 MG TAB PO SCH (14:16)
[2024-08-17] MEDS: METOPROLOL SUCC 25MG EXT REL TAB PO SCH (14:19)
[2024-08-17] MEDS: FLUTICASONE FUROATE 200MCG 14 PUFFS/INHALER INH SCH (15:20)
[2024-08-17] MEDS: UMECLIDINIUM/VILANTEROL 62.5/25MCG 7 PUFFS/INHALER INH SCH (15:20)
[2024-08-17] MEDS: HEPARIN SOD 5,000 UNIT/0.5 ML VIAL SQ SCH (15:22)
[2024-08-17] MEDS: FUROSEMIDE 40 MG/4 ML VIAL IV SCH (15:22)
[2024-08-17] MEDS: SODIUM CHLOR 7% 4 ML NEB NEB SCH (19:49)
[2024-08-17 19:52] LABS: Appearance Urine Clear (Clear); Bilirubin Urine Negative (Negative); Blood Urine Negative (Negative); Color Urine Yellow; Glucose Urine UA Negative (Negative); Ketones Urine Negative (Negative); Leukocyte Esterase Urine Negative (Negative); Nitrite Urine Negative (Negative); Protein Urine Negative (Negative); Specific Gravity Urine 1.004 (1.000-1.030); Urobilinogen Urine Negative (Negative); pH Urine 6.5 (4.5-7.5)
--- NOTE | 2024-08-17 20:40 | XCELERA ---
[id number]
[2024-08-17] MEDS: ACETAMINOPHEN 325 MG TAB PO PRN (21:17)
[2024-08-17] MEDS: CLOPIDOGREL BISULFATE 75 MG TAB PO SCH (21:18)
[2024-08-17] MEDS: MIRTAZAPINE TAB 15 MG TAB PO SCH (21:19)
[2024-08-17] MEDS: ATORVASTATIN 40 MG TAB PO SCH (21:19)
[2024-08-17] MEDS: levETIRAcetam 500 MG TAB PO SCH (21:20)
[2024-08-18] MEDS: LEVOTHYROXINE SODIUM 150 MCG TABLET PO SCH (05:49)
[2024-08-18 06:33] LABS: Hematocrit (blood only) 44.8 % (37.0-47.0); Hemoglobin 13.5 g/dl (12.0-16.0); Mean Corpuscular Hemoglobin 21.2 pg (25.0-34.0); Mean Corpuscular Hgb Conc 30.1 g/dL (32.0-36.0); Mean Corpuscular Volume 70.4 fL (80.0-100.0); Platelet Count 142 K/uL (130-400); RDW Coefficient of Variation 22.7 % (11.5-14.5); RDW Standard Deviation 53.2 fL (36.4-46.3); Red Blood Count 6.36 M/uL (4.20-5.40); White Blood Count 11.58 K/ul (4.8-10.8)
[2024-08-18 06:50] LABS: Anisocytosis Present; Basophils # (auto) 0.04 K/uL (0.00-0.20); Basophils % (auto) 0.3 %; Immature Granulocytes # (auto) 0.09 K/uL (0.01-0.20); Immature Granulocytes % (auto) 0.8 %; Lymphocytes % (auto) 6.9 %; Monocytes # (auto) 1.03 K/uL (0.11-0.59); Monocytes % (auto) 8.9 %; Neutrophils # (auto) 9.62 K/uL (1.40-6.50); Neutrophils % (auto) 83.1 %; Polychromasia 1+; Target Cells 1+; Toxic Vacuolation 1+
[2024-08-18 06:59] LABS: Troponin I High Sensitivity 41.4 pg/ml (0-14)
[2024-08-18 07:19] LABS: Albumin Globulin Ratio 1.1 (0.9-2); BUN Creatinine Ratio 13.2 (10-20); Bilirubin,Total 1.7 mg/dl (0.2-1.0); Calcium 8.3 mg/dl (8.6-10.3); Creatinine Clr Calc Pharmacy 24.5 ml/min; Globulin 2.7 gm/dl (2.5-4.0); Potassium 3.3 mmol/L (3.5-5.1); Total Protein 5.7 gm/dl (6.0-8.3)
[2024-08-18] MEDS: lisinopril 2.5 MG TAB PO SCH (08:35)
[2024-08-18] MEDS: GABAPENTIN 300 MG CAP PO SCH (08:35)
[2024-08-18] MEDS: PANTOprazole 40 MG TAB PO SCH (08:36)
[2024-08-18] MEDS: AMIODARONE 200 MG TAB PO SCH (08:36)
[2024-08-18] MEDS: MONTELUKAST SODIUM 10 MG TABLET PO SCH (08:36)
[2024-08-18] MEDS: CHOLECALCIFEROL 25 MCG (1000 UNITS) TAB PO SCH (08:36)
[2024-08-18] MEDS: CYANOCOBALAMIN (B-12) 500 MCG TABLET PO SCH (08:36)
[2024-08-18] MEDS: SPIRONOLACTONE 25 MG TAB PO SCH (08:37)
--- NOTE | 2024-08-18 10:28 | Hospitalist Progress Note ---
Date of Service August 18, 2024 Assessment & Plan (1) Acute exacerbation of CHF (congestive heart failure): Plan: -lasix 40IV BID -spironolactone -lisinopril -h/o MVR -echo showing EF 50-55% -cardiology consulted (2) CAD (coronary artery disease): Plan: -plavix -atorvastatin (3) Paroxysmal atrial fibrillation: Plan: -amiodarone -not on anticoagulation (4) COPD (chronic obstructive pulmonary disease): Plan: -duonebs prn -con't home inhaliers -singular (5) BRITTNEY (acute kidney injury): Plan: -cr 1.36 -baseline 1.24 -monitor while diuresis with lasix (6) Malnutrition: Plan: -dietary consulted Plan Plan to d/c after another 24-48hrs of IV diuresis, awaiting cardiology consult . Admission and Anticipated Discharge Date Admission Date: August 17, 2024 Subjective No events overnight. Pt state she has been going to the bathroom several times overnight and feels better with diuresis. Review of Systems Review of Systems: SOB, lower ext edema CONST: Negative for fever, body aches and chills. HENT: Negative for neck pain/stiffness, headache, congestion, sore throat, swelling. EYES: Negative for discharge/pain or vision changes. RESP: Negative for cough/hemoptysis and shortness of breath. CV: Negative chest pain, difficulty breathing, palpitations. ABD: Negative pain, nausea, vomiting. : Negative increase frequency, dysuria, blood in urine or stool. MUSC: Negative for muscle aches, edema. SKIN: Negative rash, lesions/sores. NEURO: Negative headache, dizziness, weakness. Physical Exam Physical Exam: GENERAL APPEARANCE NAD, activity normal for age, well developed/ well nourished, no cyanosis, pallor, or diaphoresis. EYES lids/conjunctiva normal. EARS/NOSE/THROAT Mucous membranes moist, nares normal, lips/teeth normal uvula midline without oral pharyngeal erythema, exudate or swelling TMs normal bilaterally. No lymphangitis/lymphedema. HEAD/NECK normocephalic atraumatic, no facial trauma, neck is supple. RESPIRATORY respiratory effort normal, speaks in full sentences, no tripod position, no accessory muscle use. Lungs clear to auscultation without rhonchi, wheezes, rales CARDIAC Regular rate and rhythm, no edema. ABDOMINAL Soft, ND/NT. No evidence of fluid wave. No pulsatile masses on exam, rebound tenderness, Calderon sign or pain over Mcburney's point. MUSCLES/EXTREMITIES No abnormal range of motion, no swelling. SKIN Warm, pink and dry. No rashes, dermatoses, petechiae or lesions. NEUROLOGICAL Speech is clear and appropriate. Normal level of consciousness. Gait and coordination are normal. 5/5 strength in all extremities. PSYCH Normal mood and affect. Judgement/competence is appropriate Results & Data Results & Data Vital Signs (Past 12 Hours) Vital Signs Temp Pulse Pulse Resp BP Pulse Ox O2 Del Method 08/18/24 08:34 64 08/18/24 07:45 59 L 16 96 Nasal Cannula 08/18/24 07:36 57 L 08/18/24 07:30 36.5 C 60 20 172/55 H 96 High Flow Nasal Cannula 08/18/24 07:27 36.7 C 65 20 132/77 95 Room Air 08/18/24 02:40 36.5 C 60 18 149/65 H 92 Nasal Cannula 08/17/24 23:06 36.6 C 72 18 177/61 H 97 Nasal Cannula O2 Flow Rate 08/18/24 08:34 08/18/24 07:45 4 08/18/24 07:36 08/18/24 07:30 4 08/18/24 07:27 08/18/24 02:40 4 08/17/24 23:06 4 PG Care Time/CCT Total # of Minutes Spent Total Time Spent with Patient: Total time spent is greater than 50% in coordination of care (as documented) at patient's floor/unit and/or counseling patient: Coding Level of Care Code 09720 SUB INP/OBS CARE 2/35MIN Diagnoses Acute exacerbation of CHF (congestive heart failure) I50.9 Coronary artery disease involving [place] coronary artery of [place] heart without angina pectoris I25.10 Coronary Disease-Associated Artery/Lesion type: [place] artery [place] vs. transplanted heart: [place] heart Associated angina: without angina Paroxysmal atrial fibrillation I48.0 Pulmonary emphysema, unspecified emphysema type J43.9 COPD type: emphysema Emphysema type: unspecified BRITTNEY (acute kidney injury) N17.9 Malnutrition E46 (2) CAD (coronary artery disease) Coronary Disease-Associated Artery/Lesion type: [place] artery [place] vs. transplanted heart: [place] heart Associated angina: without angina Qualified Code(s): I25.10 - Atherosclerotic heart disease of [place] coronary artery without angina pectoris (4) COPD (chronic obstructive pulmonary disease) COPD type: emphysema Emphysema type: unspecified Qualified Code(s): J43.9 - Emphysema, unspecified
[2024-08-18] MEDS: POTASSIUM CHLORIDE / WTR 10 MEQ/100 ML PLCT IV SCH (11:06)
--- NOTE | 2024-08-18 12:49 | Cardiology Consultation ---
Date of Consultation August 18, 2024 Assessment & Plan (1) Cor pulmonale: (2) (HFpEF) heart failure with preserved ejection fraction: (3) Valvular heart disease: (4) Atrial fibrillation: Plan 1. Cor pulmonale: I think her current presentation is more consistent with right heart failure due to severe pulmonary hypertension rather than decompensated left heart failure. Her primary concern was simply edema. Treating her primary lung disease and heart failure with preserved ejection fraction would be paramount. Diuresis as tolerated. In the past she has responded well to diuresis and at this point she is on furosemide twice daily. She has responded well in the past. I think we can continue this monitoring her electrolytes and renal function closely. 2. Heart failure with preserved ejection fraction: She has had variable ejection fraction over the years. Most recent echocardiogram looks favorable. She has been maintained on metoprolol. Not a great candidate for an SGLT2 inhibitor based on her reduced renal function. 3. Valvular heart disease: Prior bioprosthetic MVR and aortic valve repair. She continues to have some valvular heart disease that is not severe. 4. Atrial fibrillation: Documented in December 2022. No clinical symptoms. She has been maintained on low-dose amiodarone. It seems that in the past she was on warfarin due to her "valvular atrial fibrillation. However, she discontinued due to the frequent monitoring. I think the best alternative would be initiating Eliquis. She has a low body weight, but her renal function appears to be stable and the correct dose would be 5 mg twice daily. History of Present Illness Reason for Consultation: Edema Requesting Physician: Phillip Attending Physician: Cody Fisher MD History of Present Illness The patient is a 64-year-old woman with an extensive cardiac history to include congestive heart failure: Aortic valve repair, bioprosthetic mitral valve replacement, cerebrovascular disease and severe COPD on home oxygen who presents to the hospital for edema. Patient was admitted in June of this year for edema and decompensated heart failure. She states that recently she has been experiencing worsening swelling in the lower extremities and this prompted evaluation. She did not endorse symptoms of worsening dyspnea. She does have some dyspnea at times. She uses supplemental oxygen "as needed" at home. She is relatively sedentary but is able to perform routine housework. She denied dizziness or lightheadedness. She has not had symptoms of chest pain recently. She does not have any notable abdominal bloating. She appears to be compliant with her medications and did not report any increased sodium intake or change in diet. Allergies Allergy/AdvReac Type Severity Reaction Status Date / Time aspirin Allergy Intermediate Hives Verified 07/15/24 10:58 hydrochlorothiazide Allergy Intermediate RASH/"Sick Verified 07/15/24 10:58 in stomach" trazodone AdvReac Severe Vomiting Verified 07/15/24 10:58 furosemide AdvReac Intermediate ELEVATED Verified 07/15/24 10:58 CREATINE tramadol AdvReac Mild Nausea Verified 07/15/24 10:58 Home Medications Medication Instructions Recorded Confirmed Type ipratropium 0.5 mg-albuterol 3 mg 3 ml NEB QID PRN shortness of 02/07/23 08/17/24 History (2.5 mg base)/3 mL nebulization breath or wheezing soln nebulizer accessories #5 ea 02/13/23 08/09/24 Rx nebulizers #1 ea 02/13/23 08/09/24 Rx Wheeled Walker #1 ea 02/22/23 08/09/24 Rx sodium chloride 7 % for 4 ml NEB BIDR #240 mL 05/11/23 08/17/24 Rx nebulization lisinopril 2.5 mg tablet 2.5 mg PO QAM #90 tabs 06/21/23 08/17/24 Rx cholecalciferol (vitamin D3) 50 4,000 unit PO QAM 90 days #180 tabs 08/18/23 08/17/24 Rx mcg (2,000 unit) tablet (Vitamin D3) spironolactone 25 mg tablet 25 mg PO DAILY #90 tabs 11/07/23 08/17/24 Rx atorvastatin 40 mg tablet 40 mg PO QPM #90 tabs 02/23/24 08/17/24 Rx Oxygen Home 02/26/24 08/09/24 History gabapentin 300 mg capsule 300 mg PO DAILY 02/26/24 08/17/24 History clopidogrel 75 mg tablet 75 mg PO QPM #90 tabs 02/28/24 08/17/24 Rx montelukast 10 mg tablet 10 mg PO QAM #90 tabs 02/29/24 08/17/24 Rx abaloparatide (Tymlos) 80 mcg (0.04 mL) subcut DAILY 03/04/24 08/17/24 Rx #1.56 mL pen needle, diabetic 32 gauge x #100 ea 03/05/24 08/09/24 Rx 5/32" (BD Aruna 2nd Gen Pen Needle) levetiracetam 500 mg tablet 500 mg PO BID 90 days #180 tabs 05/10/24 08/17/24 Rx (Keppra) pantoprazole 40 mg tablet,delayed 40 mg PO DAILY #90 tabs 05/28/24 08/17/24 Rx release amiodarone 200 mg tablet 200 mg PO QAM #90 tabs 06/10/24 08/17/24 Rx cyanocobalamin (vitamin B-12) 1,000 mcg PO QAM #90 tabs 06/10/24 08/17/24 Rx 1,000 mcg tablet fluticasone fur. 200 mcg-umeclid 1 inh inhalation DAILY #60 ea 06/10/24 08/17/24 Rx 62.5 mcg-vilant 25 mcg inhalat.powder (Trelegy Ellipta) folic acid 1 mg tablet 1 mg PO QAM #90 tabs 06/10/24 08/17/24 Rx metoprolol succinate 25 mg 12.5 mg (1/2 x 25 mg) PO DAILY #45 06/10/24 08/17/24 Rx tablet,extended release 24 hr tabs mirtazapine 15 mg tablet 15 mg PO HS #90 tabs 06/10/24 08/17/24 Rx levothyroxine 150 mcg tablet 150 mcg PO DAILY #90 tabs 08/12/24 08/17/24 Rx oxycodone 5 mg tablet 5 mg PO Q4H PRN pain #120 tabs 08/13/24 08/17/24 Rx furosemide 20 mg tablet 0 mg PO QAM Fluid Retention 08/17/24 08/17/24 History Patient History Medical History Atrial flutter Hypoglycemia Acute hyperkalemia Sepsis Hyperkalemia Flu Sepsis Elevated troponin I level Acute respiratory failure with hypoxia and hypercapnia Positive colorectal cancer screening using Cologuard test On anticoagulant therapy Chronic combined systolic (congestive) and diastolic (congestive) heart failure Bilateral pleural effusion Mitral valve disease History of aortic valve disease Chronic back pain Arthritis Hyperlipidemia Ischemic stroke Emphysema/COPD Fibromyalgia Peripheral neuropathy GERD (gastroesophageal reflux disease) Depression Anxiety Transient ischemic attack (TIA) Hyperlipidemia On home oxygen therapy Surgical History History of esophagogastroduodenoscopy (EGD) History of colonoscopy History of heart valve replacement History of lung biopsy History of bronchoscopy H/O: hysterectomy Family History Mother Slow to wake up after anesthesia Sister Family history of diabetes mellitus Father Stroke Osteoarthritis Other Coronary heart disease Denies family history of Ovarian cancer Prostate cancer Breast cancer Colorectal cancer Social History Smoking Status: Former smoker Tobacco Type: Cigarettes Age Started Using Tobacco: 18; Age Quit Using Tobacco: 59; packs per day: 0.5; Second Hand Exposure: Yes (FAMILY SMOKED); Do You Dip or Chew Tobacco: No; Hx Alcohol Use: No Hx Substance Use: No Preferred Language: Divehi Communication Ability: Effective Hearing Ability: Normal Failure Analysis Technician Required: No Beliefs That Will Affect Care: None marital status: Current Living Situation: Significant Other Current Living Situation Comment: Sebastián current occupational status: unemployed and disabled How many Children do You have: 2 Feels Safe at Home: Yes Childhood Exposure to Second-Hand Smoke: Yes Diet: regular during the past year weight has: decreased > 10 lbs Dental Care, Regularly: No Physical Activity Frequency: 3-4 Times per Week Seatbelt Use: always Sunscreen Use: Yes Assistive Devices: Glasses, Oxygen - Continuous and Walker Review of Systems Review of Systems: Per HPI. No recent fevers or chills. Poor appetite. Physical Exam Physical Exam: She is alert and oriented x3. Mood affect appear normal. She answered all questions appropriately. Cachectic appearing. HEENT: Sclerae are anicteric. Pupils are equal and reactive to light and accommodation. Extraocular movements were intact. Neuro: Cranial nerves intact Lungs: Lungs are clear to auscultation bilaterally. There are no rales wheezes or rhonchi. She has normal respiratory effort without use of accessory muscles. There is normal pulmonary excursion. Cardiac: The rhythm was regular. S1 and S2 were normal. Very soft diastolic murmur. The PMI was not markedly displaced on palpation. Abdomen: The abdomen was soft and nontender. Extremities: Patient has bilateral radial pulses that are equal in intensity. There is no evidence cyanosis or clubbing. Moderate lower extremity edema. Skin: There are no rashes noted on examination today. Results & Data Vital Signs (Past 12 Hours) Vital Signs Temp Pulse Pulse Resp BP Pulse Ox O2 Del Method 08/18/24 11:38 36.4 C L 60 18 169/67 H 95 Nasal Cannula 08/18/24 10:23 Nasal Cannula 08/18/24 08:34 64 08/18/24 07:45 59 L 16 96 Nasal Cannula 08/18/24 07:36 57 L 08/18/24 07:30 36.5 C 60 20 172/55 H 96 High Flow Nasal Cannula 08/18/24 02:40 36.5 C 60 18 149/65 H 92 Nasal Cannula O2 Flow Rate 08/18/24 11:38 3 08/18/24 10:23 4 08/18/24 08:34 08/18/24 07:45 4 08/18/24 07:36 08/18/24 07:30 4 08/18/24 02:40 4 Laboratory Results Abnormal Lab Results 08/17/24 08/18/24 19:37 05:58 WBC 11.58 H RBC 6.36 H Hgb 13.5 Hct 44.8 MCV 70.4 L MCH 21.2 L MCHC 30.1 L RDW Std Deviation 53.2 H RDW Coeff of Claudette 22.7 H Plt Count 142 Immature Gran % (Auto) 0.8 Neut % (Auto) 83.1 Lymph % (Auto) 6.9 [place] % (Auto) 8.9 Eos % (Auto) 0.0 Baso % (Auto) 0.3 Neut # (Auto) 9.62 H Lymph # (Auto) 0.80 L [place] # (Auto) 1.03 H Eos # (Auto) 0.00 Baso # (Auto) 0.04 Immature Gran # (Auto) 0.09 Toxic Vacuolation 1+ Polychromasia 1+ Anisocytosis Present Target Cells 1+ Sodium 141 Potassium 3.3 L Chloride 95 L Carbon Dioxide 37 H Anion Gap 9 BUN 18 Creatinine 1.36 H Est Cr Clr Drug Dosing 24.5 eGFR 43.77 BUN/Creatinine Ratio 13.2 Glucose 78 Calcium 8.3 L Total Bilirubin 1.7 H AST 84 H ALT 59 H Alkaline Phosphatase 194 H Troponin I High Sens 41.4 H D Total Protein 5.7 L Albumin 3.0 L Globulin 2.7 Albumin/Globulin Ratio 1.1 Urine Color Yellow Urine Appearance Clear Urine pH 6.5 Ur Specific [place] 1.004 Urine Protein Negative Urine Glucose (UA) Negative Urine Ketones Negative Urine Blood Negative Urine Nitrite Negative Urine Bilirubin Negative Urine Urobilinogen Negative Ur Leukocyte Esterase Negative Diagnostic Findings Chest x-ray 08/17/2024: Cardiomegaly with pulmonary vascular congestion. Bilateral pleural effusions. Echocardiogram 08/17/2024: Normal LV systolic function with ejection fraction 50 to 55%. Mild LVH. Stage I diastolic dysfunction. Mild right ventricular dilation and moderately reduced RV systolic function. Moderate aortic regurgitation. Moderate mitral stenosis. Moderate to severe tricuspid regurgitation with severe pulmonary hypertension. PG Care Time/CCT Total # of Minutes Spent Total Time Spent with Patient: Total time spent is greater than 50% in coordination of care (as documented) at patient's floor/unit and/or counseling patient: Coding Diagnoses Cor pulmonale I27.81 Heart failure with preserved ejection fraction, unspecified HF chronicity I50.30 Heart failure chronicity: unspecified Valvular heart disease I38 Atrial fibrillation I48.91 (2) (HFpEF) heart failure with preserved ejection fraction Heart failure chronicity: unspecified Qualified Code(s): I50.30 - Unspecified diastolic (congestive) heart failure
[2024-08-19 07:41] LABS: BUN Creatinine Ratio 13.4 (10-20); Calcium 8.2 mg/dl (8.6-10.3); Creatinine Clr Calc Pharmacy 26.4 ml/min; Potassium 3.5 mmol/L (3.5-5.1)
--- NOTE | 2024-08-19 07:47 | Hospitalist Progress Note ---
Date of Service August 19, 2024 Assessment & Plan (1) Acute exacerbation of CHF (congestive heart failure): (2) CAD (coronary artery disease): (3) Paroxysmal atrial fibrillation: (4) COPD (chronic obstructive pulmonary disease): (5) BRITTNEY (acute kidney injury): (6) Malnutrition: Plan This patient is a 64-year-old female with a history of paroxysmal A-fib/flutter not on anticoagulation, CAD, bioprosthetic AVR, porcine MVR, PSVT, pulmonary HTN, COPD with chronic hypoxic respiratory failure on 2 LNC O2, TIA/CVA x 2, HTN, HLD, HFpEF, myoclonus, underweight, severe osteoporosis, depression/anxiety, chronic opioid use, GERD, and hypothyroidism, who presents with increasing shortness of breath and lower extremity x 1 week. She was found to be hypoxic at 85% on room air when brought in by ambulance, and had evidence of CHF both with BNP greater than 2000 and CXR with pulmonary edema and bilateral pleural effusions. #Acute on chronic HFimpEF/pulm HTN/severe hypomagnesemia-presents with SOB, LE edema, acute on chronic hypoxic respiratory failure, elevated BNP, CXR with pleural effusions left greater than right despite increasing Lasix to 3 times a day at home. Follows with CHF clinic. Heart rate is controlled/not in rapid A- fib, blood pressures are controlled. Much improved with IV Lasix-weight is down, peripheral edema improved, repeat chest x-ray improving pleural effusions. Echo with preserved EF, RV function moderately reduced, moderate MS, moderate- severe TR, pulm HTN. Starting to have contraction alkalosis and creatinine with slight bump to 1.2-1.3. Magnesium severely low at 1.1 -Reduce dose of lasix to 20 Mg IV BID -Hold spironolactone and lisinopril for now given mild rise in creatinine - Follow BMP, magnesium - Replaced with 4 g of IV magnesium sulfate and potassium chloride 40 mEq p.o. x 1 -Appreciate cardiology consultation and recommendations -Follow strict I's and O's, daily weights, low-sodium diet #COPD/acute on chronic hypoxic respiratory failure on 2L NC O2-secondary to CHF. No wheezing to suggest COPD exacerbation. Had acute decompensation in pulse ox on the morning of 08/19 likely secondary to mucous plugging after hypertonic saline neb. - Add chest PT - Continue to wean off supplemental O2 to home level of 2 LNC - Continue duonebs prn and home maintenance inhalers, Singulair #Elevated LFTs-TBili, AST, ALT, and alk phos all elevated above baseline but have been elevated previously-likely secondary to right-sided heart failure and hepatic congestion. She has no abdominal pain. She is status post cholecystectomy - Continue to diurese and follow LFTs #CAD/bioprosthetic AVR/porcine MVR-no acute issues - Continue plavix, atorvastatin #PAF-not on anticoagulation as she has declined Coumadin in the past and DOACs not indicated for valvular A-fib. Remains in sinus rhythm here - Continue amiodarone - Continue telemetry monitoring and electrolyte replacement #History of CVA/TIA-no acute issues - Continue Plavix, statin #Myoclonus-no acute issues - Continue Keppra, gabapentin #CKD stage III-cr 1.36 on admission-baseline 1.24-now around baseline -monitor while diuresis with lasix - Hold lisinopril and spironolactone while diuresing #Malnutrition/underweight BMI 15.9/severe osteoporosis -dietary consulted - Continue folic acid, B12, vitamin D - Follows with rheumatology and gets injections of Tymlos #GERD-no acute issues - Continue PPI #Hypothyroidism-recent TSH normal - Continue home levothyroxine #Depression/anxiety-no acute issues - Continue home mirtazapine DVT prophylaxis-heparin SQ Disposition-continued stay on medical floor with telemetry Admission and Anticipated Discharge Date Admission Date: August 17, 2024 Subjective Patient seen urgently this morning after respiratory therapist informing that the patient desatted to the 70s for her pulse ox. RN reports that the oxygen had been titrated down to 2.5 LNC when this happened. The patient was also recently given hypertonic saline nebulizer. She was on nonrebreather facemask when I saw her and was very comfortable. Denied ever feeling short of breath, denied chest pain. She had no other acute concerns. She was weaned back down to 3L NC O2 through the day which is her baseline. Telemetry with normal sinus rhythm and PVCs with rates in 50s to 60s Physical Exam Constitutional: + frail appearing and + underweight; no acute distress and not ill appearing Eyes: + anicteric sclerae Respiratory: normal respiratory effort; no cough Auscultation: + diminished lung sounds (Throughout but especially right base) and + crackles (Right base); no wheezes Cardiovascular: Rate/Rhythm: regular rate and regular rhythm Heart Sounds: + murmur (2/6 DEDE at the RUSB) Extremities: + edema (1+ pitting edema distal legs and ankles bilateral) Gastrointestinal (Abdomen): normal bowel sounds, soft, nontender, no hepatosplenomegaly Psychiatric: A+Ox3, euthymic affect Results & Data Results & Data Vital Signs (Past 12 Hours) Vital Signs Temp Pulse Pulse Resp BP Pulse Ox O2 Del Method 08/19/24 07:31 36.6 C 72 20 186/68 H 99 Oxymask 08/19/24 07:26 56 L 08/19/24 06:58 79 16 96 Nasal Cannula 08/19/24 04: 36.8 C 62 18 134/61 97 Nasal Cannula 08/18/24 22:54 36.6 C 69 16 111/64 98 Nasal Cannula 08/18/24 22:16 70 O2 Flow Rate 08/19/24 07:31 08/19/24 07:26 08/19/24 06:58 4 08/19/24 04:25 4 08/18/24 22:54 4 08/18/24 22:16 Laboratory Results CMP, magnesium reviewed PG Care Time/CCT Total # of Minutes Spent Total Time Spent with Patient: Total time spent is greater than 50% in coordination of care (as documented) at patient's floor/unit and/or counseling patient: Coding Level of Care Code 41783 SUB INP/OBS CARE 3/50MIN Diagnoses Acute exacerbation of CHF (congestive heart failure) I50.9 Coronary artery disease involving [place] coronary artery of [place] heart without angina pectoris I25.10 Associated angina: without angina Coronary Disease-Associated Artery/Lesion type: [place] artery [place] vs. transplanted heart: big [place] heart Paroxysmal atrial fibrillation I48.0 Pulmonary emphysema, unspecified emphysema type J43.9 COPD type: emphysema Emphysema type: unspecified BRITTNEY (acute kidney injury) N17.9 Malnutrition E46 (2) CAD (coronary artery disease) Associated angina: without angina Coronary Disease-Associated Artery/Lesion type: [place] artery [place] vs. transplanted heart: [place] heart Qualified Code(s): I25.10 - Atherosclerotic heart disease of [place] coronary artery without angina pectoris (4) COPD (chronic obstructive pulmonary disease) COPD type: emphysema Emphysema type: unspecified Qualified Code(s): J43.9 - Emphysema, unspecified
--- NOTE | 2024-08-19 08:11 | XRay Report ---
XR chest 1V portable CLINICAL HISTORY: hypoxia COMPARISON STUDY: 08/17/2024 FINDINGS: Stable CABG. Stable cardiomegaly with mild pulmonary vascular congestion. Stable findings s uggesting emphysema. Stable diffuse pulmonary interstitial opacities. Stable small to moderate left p leural effusion and associated consolidation at the left base. Stable trace right pleural effusion. N o pneumothorax. IMPRESSION: Stable exam. ACT 112: Negative or not required by law. Electronically signed by: Reginaldo Copeland M.D. 08/19/2024 8:10 AM
[2024-08-19 08:20] LABS: Albumin Level 2.8 gm/dl (3.4-5.0); Bilirubin Direct 0.5 mg/dl (0-0.2); Bilirubin,Total 1.4 mg/dl (0.2-1.0); Magnesium 1.1 mg/dl (1.7-2.4); Total Protein 5.5 gm/dl (6.0-8.3)
[2024-08-19] MEDS: POTASSIUM CHLORIDE CRTAB 20 MEQ TABCR PO STA (09:13)
[2024-08-19] MEDS: MAGNESIUM SULFATE / D5W 1 GM/100 ML BAG IV SCH (09:13)
[2024-08-19] MEDS: FUROSEMIDE INJ 20 MG/2 ML VIAL IV SCH (09:18)
[2024-08-20 08:05] LABS: Hematocrit (blood only) 45.4 % (37.0-47.0); Hemoglobin 13.6 g/dl (12.0-16.0); Mean Corpuscular Hemoglobin 21.2 pg (25.0-34.0); Mean Corpuscular Volume 70.8 fL (80.0-100.0); Platelet Count 112 K/uL (130-400); RDW Coefficient of Variation 23.2 % (11.5-14.5); RDW Standard Deviation 55.2 fL (36.4-46.3); Red Blood Count 6.41 M/uL (4.20-5.40); White Blood Count 12.46 K/ul (4.8-10.8)
[2024-08-20 08:10] LABS: BUN Creatinine Ratio 12.3 (10-20); Bilirubin Direct 0.5 mg/dl (0-0.2); Bilirubin,Total 1.5 mg/dl (0.2-1.0); Calcium 8.8 mg/dl (8.6-10.3); Creatinine Clr Calc Pharmacy 30.1 ml/min; Magnesium 1.8 mg/dl (1.7-2.4); Potassium 3.7 mmol/L (3.5-5.1); Total Protein 5.8 gm/dl (6.0-8.3)
[2024-08-20 08:15] LABS: Anisocytosis Present; Basophils # (auto) 0.04 K/uL (0.00-0.20); Basophils % (auto) 0.3 %; Hypochromasia Present; Immature Granulocytes # (auto) 0.08 K/uL (0.01-0.20); Immature Granulocytes % (auto) 0.6 %; Lymphocytes % (auto) 7.2 %; Microcytosis Present; Monocytes # (auto) 1.26 K/uL (0.11-0.59); Monocytes % (auto) 10.1 %; Neutrophils # (auto) 10.18 K/uL (1.40-6.50); Neutrophils % (auto) 81.8 %; Polychromasia 2+; Target Cells 1+; Tear Drop Cells 1+
--- NOTE | 2024-08-20 14:12 | Hospitalist Progress Note ---
Date of Service August 20, 2024 Assessment & Plan (1) Acute exacerbation of CHF (congestive heart failure): (2) Paroxysmal atrial fibrillation: (3) COPD (chronic obstructive pulmonary disease): (4) Myoclonus: Plan This patient is a 64-year-old female with a history of paroxysmal A-fib/flutter not on anticoagulation, CAD, bioprosthetic AVR, porcine MVR, PSVT, pulmonary HTN, COPD with chronic hypoxic respiratory failure on 2 LNC O2, TIA/CVA x 2, HTN, HLD, HFpEF, myoclonus, underweight, severe osteoporosis, depression/anxiety, chronic opioid use, GERD, and hypothyroidism, who presents with increasing shortness of breath and lower extremity x 1 week. She was found to be hypoxic at 85% on room air when brought in by ambulance, and had evidence of CHF both with BNP greater than 2000 and CXR with pulmonary edema and bilateral pleural effusions. #Acute on chronic HFimpEF/pulm HTN/severe hypomagnesemia-presents with SOB, LE edema, acute on chronic hypoxic respiratory failure, elevated BNP, CXR with pleural effusions left greater than right despite increasing Lasix to 3 times a day at home. Follows with CHF clinic. Heart rate is controlled/not in rapid A- fib, blood pressures are controlled. Much improved with IV Lasix-weight is down, peripheral edema improved, repeat chest x-ray improving pleural effusions. Echo with preserved EF, RV function moderately reduced, moderate MS, moderate- severe TR, pulm HTN. Now with some contraction alkalosis but creatinine improved from previous at 1.14 magnesium severely low at 1.1 has been replaced and is now normalized but not optimal - Continue lasix 20 Mg IV BID - Continue to hold spironolactone and lisinopril for now given mild rise in creatinine while actively diuresing - Follow BMP, magnesium - Give 1 g of IV magnesium sulfate and potassium chloride 40 mEq p.o. x 1 to optimize electrolytes -Appreciate cardiology consultation and recommendations -Follow strict I's and O's, daily weights, low-sodium diet #COPD/acute on chronic hypoxic respiratory failure on 2L NC O2-secondary to CHF. No wheezing to suggest COPD exacerbation. Had acute decompensation in pulse ox on the morning of 08/19 likely secondary to mucous plugging after hypertonic saline neb. VBG on 08/20 performed due to myoclonic jerks is pH 7.48, CO2 63- chronic CO2 retention but certainly not acidotic. She is now back to baseline O2 requirement at 2L NC - Continue chest PT - Continue supplemental O2 to home level of 2 LNC, titrate to keep pulse ox greater than 89% - Continue duonebs prn and home maintenance inhalers, Singulair #Elevated LFTs-TBili, AST, ALT, and alk phos all elevated above baseline but have been elevated previously-likely secondary to right-sided heart failure and hepatic congestion. LFTs are improving for the most part and she has no abdom inal pain. She is status post cholecystectomy. Checked ammonia level to see if contributing to myoclonus-normal - Continue to diurese and follow LFTs #Myoclonus-much worse since admission, no acute CO2 retention, ammonia level normal. She has had this since January 2020 forme started on Keppra by neurology as an outpatient. Thought to be worsened with her acute metabolic issues currently, hepatic congestion, heart failure, electrolyte abnormalities. Also, it is noted that gabapentin was listed on her home medication reconciliation but she reports she has not taken this in 5 months. Gabapentin can worsen myoclonus. Appreciate neurology consultation-no need for EEG or LP or other evaluation -Continue Keppra same dose 500 Mg p.o. twice daily -Discontinue gabapentin -checked NH3 given elevated LFTs, check VBG for CO2 -consult Neuro appreciated - Monitor for improvement with improvement in other acute medical conditions #CAD/bioprosthetic AVR/porcine MVR-no acute issues - Continue plavix, atorvastatin #PAF-not on anticoagulation as she has declined Coumadin in the past and DOACs not indicated for valvular A-fib, although cardiology recommends starting Eliquis nonetheless. Remains in sinus rhythm here - Continue amiodarone - Continue telemetry monitoring and electrolyte replacement - Start Eliquis 5 Mg p.o. twice daily-patient counseled on risks of bleeding and benefits of preventing stroke #History of CVA/TIA-no acute issues - Continue Plavix, statin, adding Eliquis #CKD stage III-cr 1.36 on admission-baseline 1.24-now around baseline -monitor while diuresis with lasix - Continue to hold lisinopril and spironolactone while diuresing #Malnutrition/underweight BMI 15.9/severe osteoporosis -dietary consulted - Continue folic acid, B12, vitamin D - Follows with rheumatology and gets injections of Tymlos #GERD-no acute issues - Continue PPI #Hypothyroidism-recent TSH normal - Continue home levothyroxine #Depression/anxiety-no acute issues - Continue home mirtazapine DVT prophylaxis-heparin SQ to be stopped once Eliquis started Disposition-continued stay on medical floor with telemetry Admission and Anticipated Discharge Date Admission Date: August 17, 2024 Subjective having bad body shakes today. She suffers from myoclonus since January but reports it had been better at home and that she takes a medication for it. She cannot remember the name of the medication but thinks it starts with an ST. she also reports that she does not take gabapentin which is listed on her home medication list-she has not been on that for 5 months. She is agreeable to starting Eliquis, denies history of bleeding issues I discussed her care with neurology Telemetry with normal sinus rhythm with rates in the 70s to 80s Physical Exam Constitutional: + frail appearing and + underweight; no acute distress and not ill appearing Eyes: + anicteric sclerae Respiratory: normal respiratory effort; no cough Auscultation: + diminished lung sounds (Throughout but especially right base) and + crackles (Right base); no wheezes Cardiovascular: Rate/Rhythm: regular rate and regular rhythm Heart Sounds: + murmur (2/6 DEDE at the RUSB) Extremities: + edema (1+ pitting edema distal legs and ankles bilateral) Gastrointestinal (Abdomen): normal bowel sounds, soft, nontender, no hepatosplenomegaly Neurologic: Significant myoclonus throughout entire body especially with active movement Psychiatric: A+Ox3, euthymic affect Results & Data Results & Data Vital Signs (Past 12 Hours) Vital Signs Temp Pulse Pulse Resp BP Pulse Ox O2 Del Method 08/20/24 11:57 36.8 C 69 18 128/73 95 Nasal Cannula 08/20/24 10:11 Nasal Cannula 08/20/24 07:56 36.7 C 65 18 120/67 98 Nasal Cannula 08/20/24 07:35 62 16 98 Nasal Cannula 08/20/24 07:10 69 08/20/24 03:41 36.8 C 80 18 160/64 H 92 Nasal Cannula O2 Flow Rate 08/20/24 11:57 3 08/20/24 10:11 2 08/20/24 07:56 08/20/24 07:35 4 08/20/24 07:10 08/20/24 03:41 4 Laboratory Results CBC, BMP, magnesium, LFTs, VBG, ammonia level reviewed PG Care Time/CCT Total # of Minutes Spent Total Time Spent with Patient: Total time spent is greater than 50% in coordination of care (as documented) at patient's floor/unit and/or counseling patient: Coding Level of Care Code 84709 SUB INP/OBS CARE 3/50MIN Diagnoses Acute exacerbation of CHF (congestive heart failure) I50.9 Paroxysmal atrial fibrillation I48.0 Pulmonary emphysema, unspecified emphysema type J43.9 COPD type: emphysema Emphysema type: unspecified Myoclonus G25.3 (3) COPD (chronic obstructive pulmonary disease) COPD type: emphysema Emphysema type: unspecified Qualified Code(s): J43.9 - Emphysema, unspecified
[2024-08-20 14:42] LABS: Base Excess VBG 19.4 mEq/L; HCO3 VBG 47 mmol/L; Oxygen Saturation VBG 67.8 %; PCO2 VBG 63 mmHg (38-50); PO2 VBG 40 mmHg; pH VBG 7.48 (7.36-7.41)
[2024-08-20] MEDS: MAGNESIUM SULFATE / D5W 1 GM/100 ML BAG IV ONE (14:45)
[2024-08-20] MEDS: POTASSIUM CHLORIDE CRTAB 20 MEQ TABCR PO STA (14:45)
--- NOTE | 2024-08-20 18:20 | Neurology Consultation ---
Date of Consultation August 20, 2024 Assessment & Plan (1) Myoclonus: Plan 64-year-old female with a history of myoclonus beginning over the previous year, has been on Keppra as an outpatient for this issue. She has been experiencing a significant escalation in her myoclonus in the context of her recent illness characterized by congestive heart failure, acute renal failure, hypocalcemia, hypomagnesemia, transaminitis, CO2 retention. Her myoclonus is likely due to metabolic derangement. She does have chronic cerebrovascular disease and a history of stroke as well. Her myoclonus is not epileptic. I do not think her myoclonus is due to an underlying neurodegenerative disease. I do expect her myoclonus to modestly improve with continued supportive medical care, correction of metabolic derangements. She may continue with levetiracetam 500 mg twice daily for symptomatic treatment. She does not require an EEG. A brain MRI or lumbar puncture are not necessary at this time either. Would avoid medications such as gabapentin and pregabalin as these medications can sometimes aggravate myoclonus. Narcotic analgesics can also trigger myoclonus. Please call with any questions. History of Present Illness Reason for Consultation: myoclonus Requesting Physician: Dony Attending Physician: Prudence Napoles MD History of Present Illness The patient is a 64-year-old female with a history of myoclonus. She indicates that she began experiencing involuntary jerking movements of the upper limbs probably about 1 year ago. She had seen a neurologist elsewhere who had suggested a trial of levetiracetam. She apparently has continued with this medication. These movements occur without associated loss of awareness or consciousness. They are most prominent when holding the arms outstretched against gravity. The movements have been much worse in the context of her current hospitalization for congestive heart failure, further complicated by hypocalcemia, hypomagnesemia, CO2 retention, acute renal failure, transaminitis. Currently, the movements are of moderate severity, although not overly distressing to the patient. Allergies Allergy/AdvReac Type Severity Reaction Status Date / Time aspirin Allergy Intermediate Hives Verified 07/15/24 10:58 hydrochlorothiazide Allergy Intermediate RASH/"Sick Verified 07/15/24 10:58 in stomach" trazodone AdvReac Severe Vomiting Verified 07/15/24 10:58 furosemide AdvReac Intermediate ELEVATED Verified 07/15/24 10:58 CREATINE tramadol AdvReac Mild Nausea Verified 07/15/24 10:58 Home Medications Medication Instructions Recorded Confirmed Type ipratropium 0.5 mg-albuterol 3 mg 3 ml NEB QID PRN shortness of 02/07/23 08/17/24 History (2.5 mg base)/3 mL nebulization breath or wheezing soln nebulizer accessories #5 ea 02/13/23 08/09/24 Rx nebulizers #1 ea 02/13/23 08/09/24 Rx Wheeled Walker #1 ea 02/22/23 08/09/24 Rx sodium chloride 7 % for 4 ml NEB BIDR #240 mL 05/11/23 08/17/24 Rx nebulization lisinopril 2.5 mg tablet 2.5 mg PO QAM #90 tabs 06/21/23 08/17/24 Rx cholecalciferol (vitamin D3) 50 4,000 unit PO QAM 90 days #180 tabs 08/18/23 08/17/24 Rx mcg (2,000 unit) tablet (Vitamin D3) spironolactone 25 mg tablet 25 mg PO DAILY #90 tabs 11/07/23 08/17/24 Rx atorvastatin 40 mg tablet 40 mg PO QPM #90 tabs 02/23/24 08/17/24 Rx Oxygen Home 02/26/24 08/09/24 History gabapentin 300 mg capsule 300 mg PO DAILY 02/26/24 08/17/24 History clopidogrel 75 mg tablet 75 mg PO QPM #90 tabs 02/28/24 08/17/24 Rx montelukast 10 mg tablet 10 mg PO QAM #90 tabs 02/29/24 08/17/24 Rx abaloparatide (Tymlos) 80 mcg (0.04 mL) subcut DAILY 03/04/24 08/17/24 Rx #1.56 mL pen needle, diabetic 32 gauge x #100 ea 03/05/24 08/09/24 Rx 5/32" (BD Aruna 2nd Gen Pen Needle) levetiracetam 500 mg tablet 500 mg PO BID 90 days #180 tabs 05/10/24 08/17/24 Rx (Keppra) pantoprazole 40 mg tablet,delayed 40 mg PO DAILY #90 tabs 05/28/24 08/17/24 Rx release amiodarone 200 mg tablet 200 mg PO QAM #90 tabs 06/10/24 08/17/24 Rx cyanocobalamin (vitamin B-12) 1,000 mcg PO QAM #90 tabs 06/10/24 08/17/24 Rx 1,000 mcg tablet fluticasone fur. 200 mcg-umeclid 1 inh inhalation DAILY #60 ea 06/10/24 08/17/24 Rx 62.5 mcg-vilant 25 mcg inhalat.powder (Trelegy Ellipta) folic acid 1 mg tablet 1 mg PO QAM #90 tabs 06/10/24 08/17/24 Rx metoprolol succinate 25 mg 12.5 mg (1/2 x 25 mg) PO DAILY #45 06/10/24 08/17/24 Rx tablet,extended release 24 hr tabs mirtazapine 15 mg tablet 15 mg PO HS #90 tabs 06/10/24 08/17/24 Rx levothyroxine 150 mcg tablet 150 mcg PO DAILY #90 tabs 08/12/24 08/17/24 Rx oxycodone 5 mg tablet 5 mg PO Q4H PRN pain #120 tabs 08/13/24 08/17/24 Rx furosemide 20 mg tablet 0 mg PO QAM Fluid Retention 08/17/24 08/17/24 History Patient History Medical History Atrial flutter Hypoglycemia Acute hyperkalemia Sepsis Hyperkalemia Flu Sepsis Elevated troponin I level Acute respiratory failure with hypoxia and hypercapnia Positive colorectal cancer screening using Cologuard test On anticoagulant therapy plavix daily---MVR/AVR--follows with Krystian Valles Chronic combined systolic (congestive) and diastolic (congestive) heart failure Bilateral pleural effusion hx Mitral valve disease s/p MVR (2005) History of aortic valve disease s/p AVR (2005) Chronic back pain + neck Arthritis Hyperlipidemia Ischemic stroke Remote hx per records (?11/2018) Emphysema/COPD inhaler daily/prn, nebulizer prn Fibromyalgia Peripheral neuropathy GERD (gastroesophageal reflux disease) Depression Anxiety Transient ischemic attack (TIA) 2019--no deficits, followed with Dr. Plummer (cleared) follows with PCP and cardiology Hyperlipidemia On home oxygen therapy 2L O2 HS + PRN Surgical History History of esophagogastroduodenoscopy (EGD) History of colonoscopy History of heart valve replacement AVR (2005) History of lung biopsy History of bronchoscopy H/O: hysterectomy Family History Mother Slow to wake up after anesthesia Sister Family history of diabetes mellitus Father Stroke Osteoarthritis Other Coronary heart disease Denies family history of Ovarian cancer Prostate cancer Breast cancer Colorectal cancer Social History Smoking Status: Former smoker Tobacco Type: Cigarettes Age Started Using Tobacco: 18; Age Quit Using Tobacco: 59; packs per day: 0.5; Second Hand Exposure: Yes (FAMILY SMOKED); Do You Dip or Chew Tobacco: No; Hx Alcohol Use: No Hx Substance Use: No Preferred Language: Kazakh Communication Ability: Effective Hearing Ability: Normal Collar Trimmer Required: No Beliefs That Will Affect Care: None marital status: Current Living Situation: Significant Other Current Living Situation Comment: [place]án current occupational status: unemployed and disabled How many Children do You have: 2 Feels Safe at Home: Yes Childhood Exposure to Second-Hand Smoke: Yes Diet: regular during the past year weight has: decreased > 10 lbs Dental Care, Regularly: No Physical Activity Frequency: 3-4 Times per Week Seatbelt Use: always Sunscreen Use: Yes Assistive Devices: Oxygen - Continuous and Walker Review of Systems Constitutional: no fever and no chills Eyes: no blind spots and no diplopia Ear, Nose, Mouth, Throat: no hearing loss Respiratory: + dyspnea Cardiovascular: no chest pain Gastrointestinal: no nausea and no vomiting Genitourinary: no dysuria Musculoskeletal: no myalgia Integumentary: no rash and no lesions Neurologic: as per Subjective / HPI Psychiatric: no depression and no anxiety Hematologic / Lymphatic: no easy bleeding and no easy bruising Exam (Neuro) Constitutional: + thin; no acute distress Eyes: normal visual orellana by confrontation, PERRL, EOM intact bilaterally and + nystagmus Neurologic: Oriented to:: Person, Place and Time Memory: Short Term Intact and Remote Intact Attention: Span Intact and Concentration Intact Speech Fluency: negative Dysarthria or Dysfluency Speech Aphasia: negative Aphasia Fund of Knowledge: Current Events, Past History and Vocabulary Cranial Nerves: Normal II, III, IV, , V, VII, VIII, IX, X, XI and XII Motor Str ength: Normal Lower Extremities and Normal Upper Extremities Sensation: Light Touch Intact, Pain/Temperature Intact and Proprioception Intact Coordination: Finger-Nose Abnormal and Heel-[place] Abnormal Deep Tendon Reflexes: Rt Triceps: 2+, Lt Triceps: 2+, Rt Biceps: 2+, Lt Biceps: 2+, Rt Brachioradialis: 2+, Lt Brachioradialis: 2+, Rt Patellar: 2+, Lt Patellar: 2+, Rt Ankle: 1+ and Lt Ankle: 1+ Special Tests: negative Babinski Present Details: Patient exhibits myoclonus of the upper limbs when held outstretched against gravity Results & Data Vital Signs (Past 12 Hours) Vital Signs Temp Pulse Pulse Resp BP Pulse Ox O2 Del Method 08/20/24 16:13 36.7 C 69 18 121/67 94 Nasal Cannula 08/20/24 14:59 74 08/20/24 11:57 36.8 C 69 18 128/73 95 Nasal Cannula 08/20/24 10:11 Nasal Cannula 08/20/24 07:56 36.7 C 65 18 120/67 98 Nasal Cannula 08/20/24 07:35 62 16 98 Nasal Cannula 08/20/24 07:10 69 O2 Flow Rate 08/20/24 16:13 3 08/20/24 14:59 08/20/24 11:57 3 08/20/24 10:11 2 08/20/24 07:56 08/20/24 07:35 4 08/20/24 07:10 Coding Level of Care Code 46860 INT INP/OBS CARE 55MIN Diagnoses Myoclonus G25.3 Time Spent (min) 55 Comment Total time includes patient contact, chart review, counseling, note preparation
[2024-08-21 08:28] LABS: Hematocrit (blood only) 47.8 % (37.0-47.0); Hemoglobin 14.4 g/dl (12.0-16.0); Mean Corpuscular Hemoglobin 21.6 pg (25.0-34.0); Mean Corpuscular Hgb Conc 30.1 g/dL (32.0-36.0); Mean Corpuscular Volume 71.6 fL (80.0-100.0); Platelet Count 109 K/uL (130-400); RDW Coefficient of Variation 23.6 % (11.5-14.5); Red Blood Count 6.68 M/uL (4.20-5.40); White Blood Count 8.66 K/ul (4.8-10.8)
[2024-08-21 08:41] LABS: Anisocytosis Present; Basophils # (auto) 0.05 K/uL (0.00-0.20); Basophils % (auto) 0.6 %; Hypochromasia Present; Immature Granulocytes # (auto) 0.05 K/uL (0.01-0.20); Immature Granulocytes % (auto) 0.6 %; Lymphocytes # (auto) 0.86 K/uL (1.20-3.40); Lymphocytes % (auto) 9.9 %; Monocytes # (auto) 0.95 K/uL (0.11-0.59); Neutrophils # (auto) 6.75 K/uL (1.40-6.50); Neutrophils % (auto) 77.9 %; Tear Drop Cells 1+; Toxic Vacuolation 2+
[2024-08-21 08:53] LABS: Albumin Level 3.2 gm/dl (3.4-5.0); BUN Creatinine Ratio 13.2 (10-20); Bilirubin Direct 0.7 mg/dl (0-0.2); Bilirubin,Total 1.8 mg/dl (0.2-1.0); Calcium 9.6 mg/dl (8.6-10.3); Magnesium 1.9 mg/dl (1.7-2.4); Potassium 4.8 mmol/L (3.5-5.1); Total Protein 6.3 gm/dl (6.0-8.3)
[2024-08-21] MEDS: SODIUM CHLORIDE 0.65% NA SOLN 45 ML (OCEAN) ONE (16:43)
--- NOTE | 2024-08-21 16:51 | Hospitalist Progress Note ---
Date of Service August 21, 2024 Assessment & Plan (1) Acute exacerbation of CHF (congestive heart failure): (2) Paroxysmal atrial fibrillation: (3) COPD (chronic obstructive pulmonary disease): (4) Myoclonus: Plan This patient is a 64-year-old female with a history of paroxysmal A-fib/flutter not on anticoagulation, CAD, bioprosthetic AVR, porcine MVR, PSVT, pulmonary HTN, COPD with chronic hypoxic respiratory failure on 2 LNC O2, TIA/CVA x 2, HTN, HLD, HFpEF, myoclonus, underweight, severe osteoporosis, depression/anxiety, chronic opioid use, GERD, and hypothyroidism, who presents with increasing shortness of breath and lower extremity x 1 week. She was found to be hypoxic at 85% on room air when brought in by ambulance, and had evidence of CHF both with BNP greater than 2000 and CXR with pulmonary edema and bilateral pleural effusions. #Acute on chronic HFimpEF/pulm HTN/severe hypomagnesemia-presents with SOB, LE edema, acute on chronic hypoxic respiratory failure, elevated BNP, CXR with pleural effusions left greater than right despite increasing Lasix to 3 times a day at home. Follows with CHF clinic. Heart rate is controlled/not in rapid A- fib, blood pressures are controlled. Much improved with IV Lasix-weight is down, peripheral edema resolved, repeat chest x-ray improving pleural effusions. Echo with preserved EF, RV function moderately reduced, moderate MS, moderate- severe TR, pulm HTN. Now with some contraction alkalosis and creatinine increased slightly to 1.29 Magnesium severely low at 1.1 has been replaced and is now normalized - dc lasix 20 Mg IV BID and change to lasix 40mg po qAM starting 08/22 - Continue to hold spironolactone and lisinopril for now given mild rise in creatinine while actively diuresing - Follow BMP, magnesium and keep lytes replete -Appreciate cardiology consultation and recommendations -Follow strict I's and O's, daily weights, low-sodium diet #COPD/acute on chronic hypoxic respiratory failure on 2L NC O2-secondary to CHF. No wheezing to suggest COPD exacerbation. Had acute decompensation in pulse ox on the morning of 08/19 likely secondary to mucous plugging after hypertonic saline neb. VBG on 08/20 performed due to myoclonic jerks is pH 7.48, CO2 63- chronic CO2 retention but certainly not acidotic. She is now back to baseline O2 requirement at 2L NC - Continue chest PT - Continue supplemental O2 to home level of 2 LNC, titrate to keep pulse ox greater than 89% - Continue duonebs prn and home maintenance inhalers, Singulair #Elevated LFTs-TBili, AST, ALT, and alk phos all elevated above baseline but have been elevated previously-likely secondary to right-sided heart failure and hepatic congestion. LFTs continue to be improving with diuresis and she has no abdominal pain. She is status post cholecystectomy. Checked ammonia level to see if contributing to myoclonus-normal - Continue to diurese and follow LFTs #Myoclonus-much worse since admission, no acute CO2 retention, ammonia level normal. She has had this since January 2024 started on Keppra by neurology as an outpatient. Thought to be worsened with her acute metabolic issues currently, hepatic congestion, heart failure, electrolyte abnormalities. Also, it is noted that gabapentin was listed on her home medication reconciliation but she reports she has not taken this in 5 months, however she was ordered it here for first several days of admission. Gabapentin can worsen myoclonus and was stopped. Has had some improvement on 08/21. Appreciate neurology consultation-no need for EEG or LP or other evaluation -Continue Keppra same dose 500 Mg p.o. twice daily -Discontinued gabapentin -consult Neuro appreciated -Monitor for improvement with improvement in other acute medical conditions #CAD/bioprosthetic AVR/porcine MVR-no acute issues -Continue plavix, atorvastatin #PAF-not on anticoagulation as she has declined Coumadin in the past and DOACs not indicated for valvular A-fib, although cardiology recommends starting Eliquis nonetheless. Remains in sinus rhythm here. With mild epistaxis here- resolved - Continue amiodarone - Continue telemetry monitoring and electrolyte replacement - Started Eliquis 5 Mg p.o. twice daily-patient counseled on risks of bleeding and benefits of preventing stroke -Afrin prn epistaxis and add humidification to O2 #History of CVA/TIA-no acute issues - Continue Plavix, statin, added Eliquis #CKD stage III-cr 1.36 on admission-baseline 1.24-now around baseline -monitor while diuresis with lasix - Continue to hold lisinopril and spironolactone while diuresing but can likely resume 08/22 #Malnutrition/underweight BMI 15.9/severe osteoporosis -dietary consulted - Continue folic acid, B12, vitamin D - Follows with rheumatology and gets injections of Tymlos #GERD-no acute issues - Continue PPI #Hypothyroidism-recent TSH normal - Continue home levothyroxine #Depression/anxiety-no acute issues - Continue home mirtazapine DVT prophylaxis-Eliquis Disposition-continued stay on medical floor with telemetry, PT/OT following and if myoclonus not improving, she may need rehab Admission and Anticipated Discharge Date Admission Date: August 17, 2024 Subjective Still having myoclonus today. No SOB. Not able to stand or work with PT because of myoclonus. Had a mild bloody nose this afternoon Tele with SB, NSR, rates 50-60s Physical Exam Constitutional: + frail appearing and + underweight; no acute distress and not ill appearing Eyes: + anicteric sclerae Respiratory: normal respiratory effort; no cough Auscultation: + diminished lung sounds (Throughout but especially right base); no crackles and no wheezes Cardiovascular: Rate/Rhythm: regular rate and regular rhythm Heart Sounds: + murmur (2/6 DEDE at the RUSB) Extremities: no edema (resolved in legs) Gastrointestinal (Abdomen): normal bowel sounds, soft, nontender, no hepatosplenomegaly Psychiatric: A+Ox3, euthymic affect Results & Data Results & Data Vital Signs (Past 12 Hours) Vital Signs Temp Pulse Pulse Pulse Resp BP Pulse Ox 08/21/24 15:17 36.9 C 64 18 163/71 H 98 08/21/24 12:57 63 08/21/24 12:46 162/67 H 08/21/24 12:32 36.9 C 63 18 165/102 H 98 08/21/24 08:25 08/21/24 07:55 36.5 C 61 17 174/68 H 99 08/21/24 07:18 73 18 98 08/21/24 07:00 54 L O2 Del Method O2 Flow Rate 08/21/24 15:17 Nasal Cannula 2 08/21/24 12:57 08/21/24 12:46 08/21/24 12:32 Room Air, Nasal Cannula 08/21/24 08:25 Nasal Cannula 2 08/21/24 07:55 Room Air, Nasal Cannula 08/21/24 07:18 Nasal Cannula 2 08/21/24 07:00 Laboratory Results CBC, BMP, mag reviewed PG Care Time/CCT Total # of Minutes Spent Total Time Spent with Patient: Total time spent is greater than 50% in coordination of care (as documented) at patient's floor/unit and/or counseling patient: Coding Level of Care Code 58394 SUB INP/OBS CARE 3/50MIN Diagnoses Acute exacerbation of CHF (congestive heart failure) I50.9 Paroxysmal atrial fibrillation I48.0 Pulmonary emphysema, unspecified emphysema type J43.9 COPD type: emphysema Emphysema type: unspecified Myoclonus G25.3 (3) COPD (chronic obstructive pulmonary disease) COPD type: emphysema Emphysema type: unspecified Qualified Code(s): J43.9 - Emphysema, unspecified
[2024-08-21] MEDS: OXYMETAZOLINE 0.05% 30 ML BTL ONE (18:10)
[2024-08-21] MEDS: APIXABAN 5 MG TABLET PO SCH (20:55)
[2024-08-22 07:03] LABS: Hematocrit (blood only) 42.1 % (37.0-47.0); Hemoglobin 12.6 g/dl (12.0-16.0); Mean Corpuscular Hemoglobin 21.4 pg (25.0-34.0); Mean Corpuscular Hgb Conc 29.9 g/dL (32.0-36.0); Mean Corpuscular Volume 71.6 fL (80.0-100.0); Platelet Count 120 K/uL (130-400); RDW Coefficient of Variation 22.8 % (11.5-14.5); RDW Standard Deviation 55.3 fL (36.4-46.3); Red Blood Count 5.88 M/uL (4.20-5.40); White Blood Count 9.87 K/ul (4.8-10.8)
[2024-08-22 07:22] LABS: Basophils # (auto) 0.05 K/uL (0.00-0.20); Basophils % (auto) 0.5 %; Immature Granulocytes # (auto) 0.05 K/uL (0.01-0.20); Immature Granulocytes % (auto) 0.5 %; Lymphocytes # (auto) 0.75 K/uL (1.20-3.40); Lymphocytes % (auto) 7.6 %; Monocytes # (auto) 0.76 K/uL (0.11-0.59); Monocytes % (auto) 7.7 %; Neutrophils # (auto) 8.26 K/uL (1.40-6.50); Neutrophils % (auto) 83.7 %; Ovalocytes 1+
[2024-08-22 07:23] LABS: BUN Creatinine Ratio 15.5 (10-20); Bilirubin Direct 0.5 mg/dl (0-0.2); Bilirubin,Total 1.3 mg/dl (0.2-1.0); Calcium 9.4 mg/dl (8.6-10.3); Creatinine Clr Calc Pharmacy 21.8 ml/min; Magnesium 1.6 mg/dl (1.7-2.4); Potassium 4.4 mmol/L (3.5-5.1)
[2024-08-22] MEDS: FUROSEMIDE 40 MG TAB PO SCH (08:03)
[2024-08-22] MEDS: MAGNESIUM SULFATE / D5W 1 GM/100 ML BAG IV SCH (10:00)
--- NOTE | 2024-08-22 19:34 | Hospitalist Progress Note ---
Date of Service August 22, 2024 Assessment & Plan (1) Acute exacerbation of CHF (congestive heart failure): (2) Paroxysmal atrial fibrillation: (3) COPD (chronic obstructive pulmonary disease): (4) Myoclonus: Plan This patient is a 64-year-old female with a history of paroxysmal A-fib/flutter not on anticoagulation, CAD, bioprosthetic AVR, porcine MVR, PSVT, pulmonary HTN, COPD with chronic hypoxic respiratory failure on 2 LNC O2, TIA/CVA x 2, HTN, HLD, HFpEF, myoclonus, underweight, severe osteoporosis, depression/anxiety, chronic opioid use, GERD, and hypothyroidism, who presents with increasing shortness of breath and lower extremity x 1 week. She was found to be hypoxic at 85% on room air when brought in by ambulance, and had evidence of CHF both with BNP greater than 2000 and CXR with pulmonary edema and bilateral pleural effusions. #Acute on chronic HFimpEF/pulm HTN/severe hypomagnesemia-presents with SOB, LE edema, acute on chronic hypoxic respiratory failure, elevated BNP, CXR with pleural effusions left greater than right despite increasing Lasix to 3 times a day at home. Follows with CHF clinic. Heart rate is controlled/not in rapid A- fib, blood pressures are controlled. Much improved with IV Lasix-weight is down, peripheral edema resolved, repeat chest x-ray improving pleural effusions. Echo with preserved EF, RV function moderately reduced, moderate MS, moderate- severe TR, pulm HTN. Now with some contraction alkalosis and creatinine increased further to 1.4 after being treated with multiple days of IV Lasix 40 Mg IV twice daily and then 20 Mg IV twice daily Magnesium severely low at 1.1 has been replaced and is now improving but remains mildly low - Continue lasix 40mg po qAM - Continue to hold spironolactone and lisinopril for now given mild rise in creatinine while actively diuresing - Follow BMP, magnesium and keep lytes replete-give 2 g IV magnesium -Appreciate cardiology consultation and recommendations -Follow strict I's and O's, daily weights, low-sodium diet #COPD/acute on chronic hypoxic respiratory failure on 2L NC O2-secondary to CHF. No wheezing to suggest COPD exacerbation. Had acute decompensation in pulse ox on the morning of 08/19 likely secondary to mucous plugging after hypertonic saline neb. VBG on 08/20 performed due to myoclonic jerks is pH 7.48, CO2 63- chronic CO2 retention but certainly not acidotic. She is now back to baseline O2 requirement at 2L NC - Continue chest PT - Continue supplemental O2 to home level of 2 LNC, titrate to keep pulse ox greater than 89% - Continue duonebs prn and home maintenance inhalers, Singulair #Elevated LFTs-TBili, AST, ALT, and alk phos all elevated above baseline but have been elevated previously-likely secondary to right-sided heart failure and hepatic congestion. LFTs continue to be improving with diuresis and she has no abdominal pain. She is status post cholecystectomy. Checked ammonia level to see if contributing to myoclonus-normal - Continue to diurese and follow LFTs #Myoclonus-much worse since admission, no acute CO2 retention, ammonia level normal. She has had this since January 2024 started on Keppra by neurology as an outpatient. Thought to be worsened with her acute metabolic issues currently, hepatic congestion, heart failure, electrolyte abnormalities. Also, it is noted that gabapentin was listed on her home medication reconciliation but she reports she has not taken this in 5 months, however she was ordered it here for first several days of admission. Gabapentin can worsen myoclonus and was stopped. Continues to improve each day since stopping gabapentin. Appreciate neurology consultation-no need for EEG or LP or other evaluation -Continue Keppra same dose 500 Mg p.o. twice daily -Discontinued gabapentin -consult Neuro appreciated -Monitor for improvement with improvement in other acute medical conditions - PT/OT evaluations recommending rehab but now that myoclonus improving, she would like to have a reevaluation to see if she is able to walk and avoid going to rehab #CAD/bioprosthetic AVR/porcine MVR-no acute issues -Continue plavix, atorvastatin #PAF-not on anticoagulation prior to admission as she has declined Coumadin in the past and DOACs not indicated for valvular A-fib, although cardiology recommends starting Eliquis nonetheless. Remains in sinus rhythm here. With mild epistaxis here-resolved - Continue amiodarone - Continue telemetry monitoring and electrolyte replacement - Started Eliquis 5 Mg p.o. twice daily-patient counseled on risks of bleeding and benefits of preventing stroke -Afrin prn epistaxis and added humidification to O2 #History of CVA/TIA-no acute issues - Continue Plavix, statin, added Eliquis #CKD stage III-cr 1.36 on admission-baseline 1.24-now increased to 1.4 after IV diuresis - Follow BMP - Continue to hold lisinopril and spironolactone #Malnutrition/underweight BMI 15.9/severe osteoporosis -dietary consulted - Continue folic acid, B12, vitamin D - Follows with rheumatology and gets injections of Tymlos #GERD-no acute issues - Continue PPI #Hypothyroidism-recent TSH normal - Continue home levothyroxine #Depression/anxiety-no acute issues - Continue home mirtazapine DVT prophylaxis-Eliquis Disposition-continued stay on medical floor with telemetry, PT/OT following and if myoclonus not improving, she may need rehab. PT/OT to reevaluate on 08/23 Admission and Anticipated Discharge Date Admission Date: August 17, 2024 Subjective Patient reports feeling much better today. Her myoclonus is significantly improved but still present to some degree. Her shortness of breath is resolved. She is eating and drinking, moving her bowels. She declines to go to rehab after discharge. Telemetry with normal sinus rhythm and PVCs with rates in the 50s to 60s Physical Exam Constitutional: + frail appearing and + underweight; no acute distress and not ill appearing Eyes: + anicteric sclerae Respiratory: normal respiratory effort; no cough Auscultation: + diminished lung sounds (Throughout but especially right base); no crackles and no wheezes Cardiovascular: Rate/Rhythm: regular rate and regular rhythm Heart Sounds: + murmur (2/6 DEDE at the RUSB) Extremities: no edema (resolved in legs) Gastrointestinal (Abdomen): normal bowel sounds, soft, nontender, no hepatosplenomegaly Neurologic: Still with some myoclonus that is mild to moderate in upper extremities when trying to prop herself up for pulmonary examination in the back Psychiatric: A+Ox3, euthymic affect Results & Data Results & Data Vital Signs (Past 12 Hours) Vital Signs Temp Pulse Pulse Resp BP Pulse Ox O2 Del Method 08/22/24 15:46 36.7 C 62 17 155/63 H 97 Nasal Cannula 08/22/24 13:00 65 08/22/24 11:13 36.7 C 61 18 146/64 H 97 Nasal Cannula 08/22/24 08:00 Nasal Cannula O2 Flow Rate 08/22/24 15:46 2 08/22/24 13:00 08/22/24 11:13 2 08/22/24 08:00 2 Laboratory Results CBC, CMP, magnesium, iron studies reviewed PG Care Time/CCT Total # of Minutes Spent Total Time Spent with Patient: Total time spent is greater than 50% in coordination of care (as documented) at patient's floor/unit and/or counseling patient: Coding Level of Care Code 60119 SUB INP/OBS CARE 3/50MIN Diagnoses Acute exacerbation of CHF (congestive heart failure) I50.9 Paroxysmal atrial fibrillation I48.0 Pulmonary emphysema, unspecified emphysema type J43.9 COPD type: emphysema Emphysema type: unspecified Myoclonus G25.3 (3) COPD (chronic obstructive pulmonary disease) COPD type: emphysema Emphysema type: unspecified Qualified Code(s): J43.9 - Emphysema, unspecified
[2024-08-22] MEDS: MAGNESIUM OXIDE 400 MG TAB PO SCH (21:44)
[2024-08-23 07:04] VITALS: RESP 18
[2024-08-23 07:55] LABS: BUN Creatinine Ratio 22.3 (10-20); Calcium 9.5 mg/dl (8.6-10.3); Creatinine Clr Calc Pharmacy 27.4 ml/min; Magnesium 2.1 mg/dl (1.7-2.4); Potassium 4.2 mmol/L (3.5-5.1)
[2024-08-23 08:00] LABS: Anisocytosis Present; Basophils # (auto) 0.04 K/uL (0.00-0.20); Basophils % (auto) 0.5 %; Hematocrit (blood only) 43.7 % (37.0-47.0); Hemoglobin 13.3 g/dl (12.0-16.0); Immature Granulocytes # (auto) 0.04 K/uL (0.01-0.20); Immature Granulocytes % (auto) 0.5 %; Lymphocytes # (auto) 0.85 K/uL (1.20-3.40); Lymphocytes % (auto) 9.8 %; Mean Corpuscular Hemoglobin 21.4 pg (25.0-34.0); Mean Corpuscular Hgb Conc 30.4 g/dL (32.0-36.0); Mean Corpuscular Volume 70.4 fL (80.0-100.0); Monocytes # (auto) 0.74 K/uL (0.11-0.59); Monocytes % (auto) 8.5 %; Neutrophils # (auto) 7.01 K/uL (1.40-6.50); Neutrophils % (auto) 80.7 %; Ovalocytes 1+; Platelet Count 141 K/uL (130-400); RDW Coefficient of Variation 23.1 % (11.5-14.5); RDW Standard Deviation 53.7 fL (36.4-46.3); Red Blood Count 6.21 M/uL (4.20-5.40); White Blood Count 8.68 K/ul (4.8-10.8)
[2024-08-23 09:04] LABS: Albumin Level 3.2 gm/dl (3.4-5.0); Bilirubin Direct 0.5 mg/dl (0-0.2); Bilirubin,Total 1.2 mg/dl (0.2-1.0); Total Protein 6.6 gm/dl (6.0-8.3)
[2024-08-23 11:25] VITALS: BP 148/57; TEMP 98.1; O2SAT 93
--- NOTE | 2024-08-23 14:00 | Discharge Summary ---
Discharge Summary Date of Service August 23, 2024 Principal Dx & Hospital Course #1 = Principal Diagnosis (1) Acute exacerbation of CHF (congestive heart failure): (2) Paroxysmal atrial fibrillation: (3) COPD (chronic obstructive pulmonary disease): (4) Myoclonus: Plan This patient is a 64-year-old female with a history of paroxysmal A-fib/flutter not on anticoagulation, CAD, bioprosthetic AVR, porcine MVR, PSVT, pulmonary HT N, COPD with chronic hypoxic respiratory failure on 2 LNC O2, TIA/CVA x 2, HTN, HLD, HFpEF, myoclonus, underweight, severe osteoporosis, depression/anxiety, chronic opioid use, GERD, and hypothyroidism, who presents with increasing shortness of breath and lower extremity x 1 week. She was found to be hypoxic at 85% on room air when brought in by ambulance, and had evidence of CHF both with BNP greater than 2000 and CXR with pulmonary edema and bilateral pleural effusions. #Acute on chronic HFimpEF/pulm HTN/severe hypomagnesemia-presents with SOB, LE edema, acute on chronic hypoxic respiratory failure, elevated BNP, CXR with pleural effusions left greater than right despite increasing Lasix to 20mg 3 times a day at home. Follows with CHF clinic. Heart rate is controlled/not in rapid A-fib, blood pressures are controlled. Much improved with IV Lasix-weight is down, peripheral edema resolved, repeat chest x-ray improving pleural effusions. Echo with preserved EF, RV function moderately reduced, moderate MS, moderate-severe TR, pulm HTN. Now with some contraction alkalosis and creatinine increased slightly to 1.4 and now back to 1.2 Magnesium severely low at 1.1 has been replaced and is now normalized - dc to home on lasix 40mg po qAM -resume home spironolactone and lisinopril which were held for mild rise in creatinine while actively diuresing - Follow BMP, magnesium and keep lytes replete as outpt--> started magnesium 400mg po bid for hypomagnesemia -Appreciate cardiology consultation and recommendations-f/u with CHF clinic after discharge -continue fluid restriction 1800mL, daily weights, low-sodium diet at home #COPD/acute on chronic hypoxic respiratory failure on 2L NC O2-secondary to CHF. No wheezing to suggest COPD exacerbation. Had acute decompensation in pulse ox on the morning of 08/19 likely secondary to mucous plugging after hypertonic saline neb. VBG on 08/20 performed due to myoclonic jerks is pH 7.48, CO2 63- chronic CO2 retention but certainly not acidotic. She is now back to baseline O2 requirement at 2L NC - Continue supplemental O2 to home level of 2 LNC - Continue duonebs prn and home maintenance inhalers, Singulair #Elevated LFTs-TBili, AST, ALT, and alk phos all elevated above baseline but have been elevated previously-likely secondary to right-sided heart failure and hepatic congestion. LFTs continue to be improving with diuresis and she has no abdominal pain. She is status post cholecystectomy. Checked ammonia level to see if contributing to myoclonus-normal -follow LFTs as outpt #Myoclonus-became much worse after admission, no acute CO2 retention, ammonia level normal. She has had this since January 2024 started on Keppra by neurology as an outpatient. Thought to be worsened with her acute metabolic issues currently, hepatic congestion, heart failure, electrolyte abnormalities. Also, it is noted that gabapentin was listed on her home medication reconciliation but she reports she has not taken this in 5 months, however she was ordered it here for first several days of admission. Gabapentin can worsen m yoclonus and was stopped. Now much improved but still some residual myoclonus. Appreciate neurology consultation-no need for EEG or LP or other evaluation -Continue Keppra same dose 500 Mg p.o. twice daily -Discontinued gabapentin -consult Neuro appreciated -Monitor as outpt #CAD/bioprosthetic AVR/porcine MVR-no acute issues -Continue plavix, atorvastatin #PAF-not on anticoagulation as she has declined Coumadin in the past and DOACs not indicated for valvular A-fib, although cardiology recommends starting Eliquis nonetheless. Remains in sinus rhythm here. With mild epistaxis here- resolved - Continue amiodarone - Started Eliquis 5 Mg p.o. twice daily-patient counseled on risks of bleeding and benefits of preventing stroke -Afrin prn epistaxis and added humidification to O2 #History of CVA/TIA-no acute issues - Continue Plavix, statin, added Eliquis #CKD stage III-cr 1.36 on admission-baseline 1.24-now around baseline after peak at 1.4 -monitor while diuresis with lasix -ok to resume low dose home lisinopril and spironolactone on discharge -follow BMP as outpt with CHF clinic #Malnutrition/underweight BMI 15.9/severe osteoporosis -dietary consulted - Continue folic acid, B12, vitamin D - Follows with rheumatology and gets injections of Tymlos #Microcytosis/Thrombcytopenia-improving. Not anemic. Suspect maybe underlying thalassemia although she denies ever being tested for this. SHe is unaware of a family history of such and only knows her father's ethnicity is [place] ([place]). Plts likely low from hepatic dysfunction from hepatic congestion and improved by time of dishcarge -follow CBC as outpt #GERD-no acute issues - Continue PPI #Hypothyroidism-recent TSH normal - Continue home levothyroxine #Depression/anxiety-no acute issues - Continue home mirtazapine DVT prophylaxis-Eliquis Disposition-improved with PT/OT as myoclonus improved, stable for dc to home with home health Notes For Next Care Provider Check CMP, CBC in 1 week with PCP/CHF clinic Medication Changes From Visit see list Admission HPI Per Admitting Provider Pt is a 64 y/o female with pmh of CHF, CAD,aortic valve replacement, COPD, HTN, PAF, malnutrition who presents with increasing edema and SOB over the last week. Pt has been taking her lasix 3 times daily over the past week, but still feeling the edema is not improving. Pt also has been feeling lightheaded and having difficulty getting out of bed. She denies any fever or sick contacts. Pt had 02 sats of 85% on RA when she was brought in be EMS. She is now on 6LNC and her sats are 95%. Her labs show a BNP >2000 and CXR shows pulmonary edema with b/l pleural effusions. Pt was give a dose of lasix IV and will be admitted for further treatment of CHF exacerbation. Discharge Exam Constitutional + frail appearing and + underweight; no acute distress and not ill appearing Eyes + anicteric sclerae Respiratory normal respiratory effort; no cough Auscultation: + diminished lung sounds (Throughout but especially right base); no crackles and no wheezes Cardiovascular Rate/Rhythm: regular rate and regular rhythm Heart Sounds: + murmur (2/6 DEDE at the RUSB) Extremities: no edema (resolved in legs) Gastrointestinal (Abdomen) normal bowel sounds, soft, nontender, no hepatosplenomegaly Psychiatric A+Ox3, euthymic affect Discharge Plan Discharge Items Patient Disposition: Home - Home Health Services Reason For Visit: CHF Discharge Diagnosis: Acute heart failure exacerbation Condition on Discharge: Fair Activity: As commented below Lifting: Gradually increase as tolerated Bathing: No limitations Exercise/Sports: Gradually increase as tolerated Non-emergency contact: Primary Care Provider and Interlocking Pavement Installer Call non-emergency contact if: you have any medication questions and your symptoms worsen Follow-up/Referrals: Barrington Joshi MD [Primary Care Provider] - (Follow up within 1-2 weeks) Hortencia Smiley PA-C [Physician Diesel Service Technician] - (Please follow up within 1 week) Diet: Low Sodium (2gm) Addtl Attending Provider Instructions: You were admitted with heart failure and fluid overload. You had a lot of fluid removed with increased doses of IV diuretics. Your lasix dose will be increased to 40mg once daily. You were also started on a blood thinner called Marzena twice a day to prevent strokes because of your history of atrial fibrillation. Call your Primary Care doctor if any of the following symptoms or problems start or get worse: * Shortness of breath or difficulty breathing * Wake up at night short of breath * Chest pain * Cough * Swelling of your hands, feet, or legs * More fatigued or tired with your normal activity * Palpitations - sudden fast heart beats WEIGHT * Weigh yourself every morning after using the bathroom. * Use the same scale. * Wear the same amount of clothing. * Write your weight down on a chart. * Call your Primary Care doctor if you gain more than 2-3 pounds in 1-2 days. MEDICATIONS * Use this discharge instruction sheet for medication instructions. * Take your medications at the time your doctor ordered. * Do not skip a dose of your medicines. * If you miss a dose of medicine, take it as soon as possible, but DO NOT DOUBLE A DOSE. * Read your medicine information when you get home. * Know all of the side effects of your medicine. If in doubt, ask your pharmacist * Call your Primary Care doctor's office if you have any side effects. * Be sure all of your doctors know what medicine and herbs you take (including cold, flu, and herbal medicine). Take the following with you to your follow-up doctor appointments: * Weight Chart * Medication List * List of questions Do not drink excessive alcohol, beer or wine. Here are some guidelines about taking Eliquis: There is an increased risk of blood clots if you stop taking Eliquis. Do not stop taking Eliquis without talking to your doctor.. Stopping Eliquis increases your risk of having a stroke. There is an increased risk of bleeding. Eliquis can cause bleeding which can be serious and may lead to . This is because Eliquis is a blood thinner medicine (anticoagulant) that lowers blood clotting. During treatment with Eliquis you are likely to bruise more easily, and it may take longer for bleeding to stop. * If you ever cannot get bleeding to stop please report to the ER * If you have a bruise that is large/painful or swollen you should also be seen by a medical provider Call your doctor or get medical help right away if you or your child develop any of these signs or symptoms of bleeding: unexpected bleeding or bleeding that lasts a long time, such as: * Nose bleeds that happen often * unusual bleeding from the gums * bleeding that is severe or you cannot control * red, pink or brown urine * bright red or black stools (looks like tar) * cough up blood or blood clots * vomit blood or your vomit looks like coffee grounds If you have a fall and hit your head, please come to the ER and get checked out. Being on a blood thinner increases your risk of brain bleeding with falls. Avoid high risk activities, such as: * standing on tall ladders * riding motorcycles * anything where you are high risk for falls or trauma Avoid taking NSAIDs (pain medication) while you are taking a blood thinner. This includes: * Ibuprofen, Aleve Advil, Naproxen. * If you are ever unsure you can ask your doctor or pharmacist. * Tylenol is SAFE to take. If you have any new or worsening chest pain or shortness of breath please return to the ER. Pending Studies at Discharge: No Stand-Alone Forms: My [facility] [employer], Smoking Cessation Medications and DC Order Prescriptions: New furosemide 40 mg Tablet 40 mg PO QAM Qty: 30 0RF Eliquis 5 mg Tablet 5 mg PO BID Qty: 60 0RF magnesium oxide 400 mg (241.3 mg magnesium) Tablet 400 mg PO BID Qty: 60 0RF Rx Instructions: Over the counter Continued (DME) nebulizers [facility] See Rx Instructions .Route Qty: 1 0RF Rx Instructions: Use with albuterol and saline nebulizer solution as directed (DME) nebulizer accessories [facility] [place] See Rx Instructions .Route Qty: 5 3RF Rx Instructions: TUBING AND ADULT ADMINISTRATION DEVICE/MASK (DME) Wheeled Walker [facility] [place] See Rx Instructions .Route Qty: 1 0RF Rx Instructions: As directed sodium chloride 7 % solution for nebulization 4 ml NEB BIDR Qty: 240 0RF cholecalciferol (vitamin D3) [Vitamin D3] 50 mcg (2,000 unit) tablet 4,000 unit PO QAM 90 Days Qty: 180 3RF spironolactone 25 mg tablet 25 mg PO DAILY Qty: 90 3RF atorvastatin 40 mg tablet 40 mg PO QPM Qty: 90 3RF clopidogrel 75 mg tablet 75 mg PO QPM Qty: 90 3RF montelukast 10 mg tablet 10 mg PO QAM Qty: 90 3RF levetiracetam [Keppra] 500 mg tablet 500 mg PO BID 90 Days Qty: 180 3RF pantoprazole 40 mg tablet,delayed release (DR/EC) 40 mg PO DAILY Qty: 90 3RF amiodarone 200 mg tablet 200 mg PO QAM Qty: 90 3RF metoprolol succinate 25 mg tablet extended release 24 hr 12.5 mg PO DAILY Qty: 45 3RF mirtazapine 15 mg tablet 15 mg PO HS Qty: 90 1RF cyanocobalamin (vitamin B-12) 1,000 mcg tablet 1,000 mcg PO QAM Qty: 90 3RF Trelegy Ellipta 200-62.5-25 mcg blister with device 1 inh inhalation DAILY Qty: 60 5RF folic acid 1 mg tablet 1 mg PO QAM Qty: 90 3RF levothyroxine 150 mcg tablet 150 mcg PO DAILY Qty: 90 3RF oxycodone 5 mg tablet 5 mg PO Q4H PRN (Reason: pain) Qty: 120 0RF lisinopril 2.5 mg tablet 2.5 mg PO QAM Qty: 90 3RF (DME) Oxygen Home Liters Per Minute See Rx Instructions .Route Rx Instructions: 3 L/min at all times as directed Tymlos 80 mcg (3,120 mcg/1.56 mL) pen injector 80 mcg subcut DAILY Qty: 1.56 11RF Rx Instructions: inject into abdomen; do not inject within 2 inches of belly button/navel; rotate sites (DME) pen needle, diabetic [BD Aruna 2nd Gen Pen Needle] 32 gauge x 5/32" needle See Rx Instructions .Route Qty: 100 0RF Rx Instructions: As directed ipratropium-albuterol 0.5 mg-3 mg(2.5 mg base)/3 mL solution for nebulization 3 ml NEB QID PRN (Reason: shortness of breath or wheezing) Discontinued gabapentin 300 mg capsule 300 mg PO DAILY Rx Instructions: Last filled 09/2023 furosemide 20 mg tablet 0 mg PO QAM Rx Instructions: Listed on pt's allergy list. Last filled 11/2023 but last verified 06/2024 by MD. Unable to verify if pt still taking. Original Directions: 20mg by mouth every morning. Discharge Orders: Discharge Order- CHF (Routine); Ordered 08/23/24 Ordered By: Prudence Napoles Admission Data Admit Date/Time: 08/17/24 12:28 Attending Provider: Prudence Napoles Admit Provider: Cody Fisher Primary Care Provider: Barrington Joshi Other Providers: Fernando Chu; Barrington Dalton; Juan Daniel Plummer Hospital Stay Data Consultations 08/17/24 11:16 ED Decision to Admit Stat 08/17/24 12:28 Consult Cardiology Routine 08/20/24 14:09 Consult Neurology Routine Diagnostic Imagining Performed ECHO Pending Results Patient Have Any Pending Studies at Discharge: No Discharge Instructions Given to Patient (Per Discharging Provider) You were admitted with heart failure and fluid overload. You had a lot of fluid removed with increased doses of IV diuretics. Your lasix dose will be increased to 40mg once daily. You were also started on a blood thinner called Eliquis twice a day to prevent strokes because of your history of atrial fibrillation. Call your Primary Care doctor if any of the following symptoms or problems start or get worse: * Shortness of breath or difficulty breathing * Wake up at night short of breath * Chest pain * Cough * Swelling of your hands, feet, or legs * More fatigued or tired with your normal activity * Palpitations - sudden fast heart beats WEIGHT * Weigh yourself every morning after using the bathroom. * Use the same scale. * Wear the same amount of clothing. * Write your weight down on a chart. * Call your Primary Care doctor if you gain more than 2-3 pounds in 1-2 days. MEDICATIONS * Use this discharge instruction sheet for medication instructions. * Take your medications at the time your doctor ordered. * Do not skip a dose of your medicines. * If you miss a dose of medicine, take it as soon as possible, but DO NOT DOUBLE A DOSE. * Read your medicine information when you get home. * Know all of the side effects of your medicine. If in doubt, ask your pharmacist * Call your Primary Care doctor's office if you have any side effects. * Be sure all of your doctors know what medicine and herbs you take (including cold, flu, and herbal medicine). Take the following with you to your follow-up doctor appointments: * Weight Chart * Medication List * List of questions Do not drink excessive alcohol, beer or wine. Here are some guidelines about taking Eliquis: There is an increased risk of blood clots if you stop taking Eliquis. Do not stop taking Eliquis without talking to your doctor.. Stopping Eliquis increases your risk of having a stroke. There is an increased risk of bleeding. Eliquis can cause bleeding which can be serious and may lead to . This is because Eliquis is a blood thinner medicine (anticoagulant) that lowers blood clotting. During treatment with Eliquis you are likely to bruise more easily, and it may take longer for bleeding to stop. * If you ever cannot get bleeding to stop please report to the ER * If you have a bruise that is large/painful or swollen you should also be seen by a medical provider Call your doctor or get medical help right away if you or your child develop any of these signs or symptoms of bleeding: unexpected bleeding or bleeding that lasts a long time, such as: * Nose bleeds that happen often * unusual bleeding from the gums * bleeding that is severe or you cannot control * red, pink or brown urine * bright red or black stools (looks like tar) * cough up blood or blood clots * vomit blood or your vomit looks like coffee grounds If you have a fall and hit your head, please come to the ER and get checked out. Being on a blood thinner increases your risk of brain bleeding with falls. Avoid high risk activities, such as: * standing on tall ladders * riding motorcycles * anything where you are high risk for falls or trauma Avoid taking NSAIDs (pain medication) while you are taking a blood thinner. This includes: * Ibuprofen, Aleve Advil, Naproxen. * If you are ever unsure you can ask your doctor or pharmacist. * Tylenol is SAFE to take. If you have any new or worsening chest pain or shortness of breath please return to the ER. Total Time Total Time Spent Total Time Spent (In Minutes): 35 min Total Time Includes: Examination of the Patient, Discharge Planning and Medication Reconciliation Coding Level of Care Code 76466 INP/OBS DISCH >30 MIN Diagnoses Acute exacerbation of CHF (congestive heart failure) I50.9 Paroxysmal atrial fibrillation I48.0 Pulmonary emphysema, unspecified emphysema type J43.9 COPD type: emphysema Emphysema type: unspecified Myoclonus G25.3
[2024-08-23 15:23] VITALS: PULSE 77
== END 2024-08-23 17:04 | disposition home health service (06) | DRG 291 ==
LOC: ED 09:00 → 2N 12:28 → SUATTDRO 12:28 → 2N 13:03
DX: R63.6 Underweight; I27.20 Pulmonary hypertension, unspecified; D69.6 Thrombocytopenia, unspecified; E46 Unspecified protein-calorie malnutrition; I13.0 Hypertensive heart and chronic kidney disease with heart failure and stage 1 through stage 4 chronic kidney disease, or unspecified chronic kidney disease; I25.10 Atherosclerotic heart disease of native coronary artery without angina pectoris; I48.0 Paroxysmal atrial fibrillation; Z99.81 Dependence on supplemental oxygen; Z86.73 Personal history of transient ischemic attack (TIA), and cerebral infarction without residual deficits; I27.81 Cor pulmonale (chronic); N18.30 Chronic kidney disease, stage 3 unspecified; E83.42 Hypomagnesemia; G25.3 Myoclonus; J96.21 Acute and chronic respiratory failure with hypoxia; I50.33 Acute on chronic diastolic (congestive) heart failure; Z68.1 Body mass index [BMI] 19.9 or less, adult; Z88.6 Allergy status to analgesic agent; Z79.02 Long term (current) use of antithrombotics/antiplatelets; E03.9 Hypothyroidism, unspecified; N17.9 Acute kidney failure, unspecified; J44.9 Chronic obstructive pulmonary disease, unspecified

== ENCOUNTER 2024-11-07 21:48 | Inpatient (IN) ==
--- NOTE | 2024-11-07 21:57 | Emergency Department Note ---
Impression & Plan Fall, Elevated troponin I level, Lumbar contusion, Pleural effusion, BRITTNEY (acute kidney injury) ED Provider Note NAME: JERARDO MONTES AGE: 64 SEX: F : 1960 ARRIVES VIA: Ambulance INFORMANT: Patient, ED PROVIDER(S): Dejon Ariza DO CHIEF COMPLAINT: Generalized weakness HPI: The patient is a 64-year-old female who was made a trauma alert prior to arrival because of a fall. The patient takes blood thinners. The patient states that she has not been well over the course the last several days. She has had generalized weakness. She is having difficulty ambulating because of her generalized weakness. She has a history of COPD as well as heart failure. The patient states that she fell this evening injuring her back. She states that she struck her head as well. She denies having any neck pain or lower extremity pain. She states she sees been compliant with her outpatient medications. ROS: See above HPI for pertinent positives & negatives. A total of 10 systems reviewed and were otherwise negative. PAST MEDICAL HISTORY: See Below PAST SURGICAL HISTORY: See Below FAMILY HISTORY: See Below SOCIAL HISTORY: See Below HOME MEDICATIONS: See Below ALLERGIES: See Below VITALS: See Below PHYSICAL EXAMINATION: Primary Survey Airway: Intact Breathing: Normal, breath sounds equal bilaterally Circulation: Skin warm, distal pulses 2+, capillary refill less than 2 seconds Disability Pupils: Equal and reactive to light, 3mm, brisk GCS: 15, Motor Function: Moves all extremities. Sensory: No deficits Secondary Survey GEN: Well developed and well-nourished HEAD: Normal cephalic atraumatic EYES: Pupils round reactive to light, conjunctiva clear, extraocular movements intact, no raccoons eyes ENT: No fluid in external acoustic canals, no hemotympanum, no randhawa's sign, nares patent, oropharynx clear NECK: No JVD, midline trachea, no cervical spine tenderness, HEART: Regular rate and rhythm LUNGS: Clear to auscultation bilaterally. CHEST: Chest wall non-tender, no bruising/deformity ABD: No Berry-Delgado's or Jose Manuel's sign, soft, non-tender, no rebound or guarding, BACK: There was low thoracic spine tenderness as well as upper lumbar spine tenderness to palpation. EXT: Strength was pedal edema was noted bilaterally. Skin was warm and dry. There was no decreased range of motion in either lower extremity. NEURO: The patient is awake alert and oriented x 3. Strength was symmetric but diminished. MEDICAL DECISION MAKING: The patient is a 64-year-old female who presented to the emergency department as a trauma alert. The patient has a history of atrial fibrillation. She does take oral anticoagulants. Because of her fall she was made a trauma alert prior to arrival. The patient does not appear well. She has lower extremity edema. Vital signs were reassuring but the patient was in need of supplemental oxygen. I discussed the patient's laboratory and radiographic studies with her. No traumatic injury was identified although the patient was treated for back pain. The patient was found to have an elevated creatinine compared to baseline. She was also found have an elevated troponin. Given the patient's findings I do not feel she is a good candidate for outpatient management. For this reason I discussed her condition with the on-call [facility]ist. They have agreed to evaluate the patient in the emergency department. Triage Nursing notes reviewed. Prior medical records reviewed Vital Signs: reviewed and remarkable for elevated blood pressure. Differential diagnosis: Infection, dehydration, metabolic abnormality, hypo/hyperglycemia, electrolyte disturbance, anemia, hypoxia, cardiac sources, intracerebral event, toxicologic, neurologic, as well as other pathologies. ER treatment provided: See below Diagnostics interpreted by me: ECG: EKG was obtained in the emergency department. My interpretation is sinus rhythm at 92 bpm. First-degree AV block is noted. Nonspecific ST abnormalities were noted. This was compared to a tracing from August 17, 2024. No changes were noted. Cardiac Monitoring: An order was placed for continuous cardiac monitoring. The monitor shows a rate of 85 bpm with sinus rhythm. Laboratory studies: As stated above and show below. Imaging studies: See below. Radiographic imaging was reviewed by myself Consultation(s): I discussed this case with Dr. Sharp who is on-call for the [facility] group. Past Med/Surg History Problem List (Updated 11/08/24 @ 00:59 by Dejon Ariza DO) BRITTNEY (acute kidney injury) (Acute) Pleural effusion (Acute) Lumbar contusion (Acute) Elevated troponin I level (Acute) Fall (Acute) Heart failure with improved ejection fraction (HFimpEF) Myoclonus Valvular heart disease Cor pulmonale Hypomagnesemia (Acute) HFrEF (heart failure with reduced ejection fraction) BMI < 18.5 Moderate aortic regurgitation Heart failure with mid-range ejection fraction (HFmEF) Pancolitis (Acute) Nausea & vomiting (Acute) Pleural effusion on left (Acute) Elevated brain natriuretic peptide (BNP) level (Acute) Acute hypoxemic respiratory failure (Acute) Pulmonary edema (Acute) Acute CHF (Acute) Hypomagnesemia (Acute) Acute dyspnea (Acute) Ambulatory dysfunction CVA (cerebral vascular accident) Subacute ischemia on MRI02/23/2024[facility] Closed rib fracture (Acute ~10/16/23) acute fractures of the right posterior 8th and 9th ribs. Note that both ribs are fractured at 2 sites. 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 Chronic anticoagulation Paroxysmal atrial fibrillation Pneumonia (Acute) Cervicalgia (HFpEF) heart failure with preserved ejection fraction Collapse of left lung Elevated INR Atelectasis Abnormal EKG History of aortic valve repair NSVT (nonsustained ventricular tachycardia) Severe sepsis Malnutrition Elevated troponin COPD (chronic obstructive pulmonary disease) (Acute) Acute dehydration (Acute) Non-ST elevation IN (NSTEMI) (Acute) Hypomagnesemia (Acute) Positive colorectal cancer screening using Cologuard test per pt reason for scheduled colonoscopy Back pain Hypokalemia Asthma Bronchitis Emphysema lung Gallbladder problem Encounter for pre-operative examination Tobacco dependence Opioid dependence Abnormal diffusion capacity determined by pulmonary function test Personal history of nicotine dependence H/O stroke without residual deficits Anemia Vitamin D deficiency (Acute) Vitamin B12 deficiency (Acute) Restless legs syndrome (Acute) Raynauds disease (Acute) Paroxysmal SVT (supraventricular tachycardia) (Acute) Neuropathy (Acute) Low back pain (Acute) Insomnia (Acute) Congestive heart failure (Acute) Chronic pain (Acute) Cervical radiculopathy at C8 (Acute) Aortic regurgitation (Acute) Sore throat Cough Folate deficiency TIA (transient ischemic attack) Palpitations Tendinitis of left rotator cuff Cervical radicular pain Cardiomyopathy Vomiting Nausea and vomiting Low BMI Bilateral edema of lower extremity (Acute) Severe protein-calorie malnutrition Hypoxia (Acute) Dizziness (Acute) Acute respiratory failure with hypoxia Hypokalemia Acute on chronic diastolic CHF (congestive heart failure) recent diagnosis 01/07/23 at [facility]--pt states she is improving History of nicotine dependence Chronic dyspnea oxygen prn Diastolic CHF Hx laparoscopic cholecystectomy (01/13/21) Laparoscopic Cholecystectomy Dr. Pulido 01-13-2021 Cholecystitis Pulmonary hypertension S/P mitral valve replacement with bioprosthetic valve 2005 Osteoporosis CAD (coronary artery disease) Hypertension Medical History Atrial flutter Hypoglycemia Acute hyperkalemia Sepsis Hyperkalemia Flu Sepsis Elevated troponin I level Acute respiratory failure with hypoxia and hypercapnia Positive colorectal cancer screening using Cologuard test On anticoagulant therapy plavix daily---MVR/AVR--follows with Krystian Valles Chronic combined systolic (congestive) and diastolic (congestive) heart failure Bilateral pleural effusion hx Mitral valve disease s/p MVR (2005) History of aortic valve disease s/p AVR (2005) Chronic back pain + neck Arthritis Hyperlipidemia Ischemic stroke Remote hx per records (?11/2018) Emphysema/COPD inhaler daily/prn, nebulizer prn Fibromyalgia Peripheral neuropathy GERD (gastroesophageal reflux disease) Depression Anxiety Transient ischemic attack (TIA) 2019--no deficits, followed with Dr. Plummer (cleared) follows with PCP and cardiology Hyperlipidemia On home oxygen therapy 2L O2 HS + PRN Surgical History History of esophagogastroduodenoscopy (EGD) History of colonoscopy History of heart valve replacement AVR (2005) History of lung biopsy History of bronchoscopy H/O: hysterectomy Family History Mother Slow to wake up after anesthesia Sister Family history of diabetes mellitus Father Stroke Osteoarthritis Other Coronary heart disease Denies family history of Ovarian cancer Prostate cancer Breast cancer Colorectal cancer Social History Smoking Status: Former smoker Tobacco Type: Cigarettes Age Started Using Tobacco: 18; Age Quit Using Tobacco: 59; packs per day: 0.5; Second Hand Exposure: Yes (FAMILY SMOKED); Do You Dip or Chew Tobacco: No; Hx Alcohol Use: No Hx Substance Use: No Preferred Language: Frisian Communication Ability: Effective Hearing Ability: Normal Manager Of Broadcast Content Required: No Beliefs That Will Affect Care: None marital status: Current Living Situation: Significant Other Current Living Situation Comment: [place] current occupational status: unemployed and disabled How many Children do You have: 2 Feels Safe at Home: Yes Childhood Exposure to Second-Hand Smoke: Yes Diet: regular during the past year weight has: decreased > 10 lbs Dental Care, Regularly: No Physical Activity Frequency: 3-4 Times per Week Seatbelt Use: always Sunscreen Use: Yes Assistive Devices: Oxygen - Continuous and Walker Allergies Allergies Allergy/AdvReac Type Severity Reaction Status Date / Time aspirin Allergy Intermediate Hives Verified 09/13/24 09:50 hydrochlorothiazide Allergy Intermediate RASH/"Sick Verified 09/13/24 09:50 in stomach" trazodone AdvReac Severe Vomiting Verified 09/13/24 09:50 furosemide AdvReac Intermediate ELEVATED Verified 09/13/24 09:50 CREATINE tramadol AdvReac Mild Nausea Verified 09/13/24 09:50 Home Meds Home Medications Medication Instructions Recorded Confirmed ipratropium 0.5 mg-albuterol 3 mg 3 ml NEB QID PRN shortness of 02/07/23 11/07/24 (2.5 mg base)/3 mL nebulization breath or wheezing soln Oxygen Home 02/26/24 11/07/24 Previous Rx's Medication Instructions Recorded nebulizer accessories #5 ea 02/13/23 nebulizers #1 ea 02/13/23 Wheeled Walker #1 ea 02/22/23 sodium chloride 7 % for 4 ml NEB BIDR #240 mL 05/11/23 nebulization cholecalciferol (vitamin D3) 50 4,000 unit PO QAM 90 days #180 tabs 08/18/23 mcg (2,000 unit) tablet (Vitamin D3) spironolactone 25 mg tablet 25 mg PO DAILY #90 tabs 11/07/23 atorvastatin 40 mg tablet 40 mg PO QPM #90 tabs 02/23/24 clopidogrel 75 mg tablet 75 mg PO QPM #90 tabs 02/28/24 montelukast 10 mg tablet 10 mg PO QAM #90 tabs 02/29/24 abaloparatide (Tymlos) 80 mcg (0.04 mL) subcut DAILY 03/04/24 #1.56 mL pen needle, diabetic 32 gauge x #100 ea 03/05/24" (BD Aruna 2nd Gen Pen Needle) levetiracetam 500 mg tablet 500 mg PO BID 90 days #180 tabs 05/10/24 (Keppra) pantoprazole 40 mg tablet,delayed 40 mg PO DAILY #90 tabs 05/28/24 release amiodarone 200 mg tablet 200 mg PO QAM #90 tabs 06/10/24 cyanocobalamin (vitamin B-12) 1,000 mcg PO QAM #90 tabs 06/10/24 1,000 mcg tablet fluticasone fur. 200 mcg-umeclid 1 inh inhalation DAILY #60 ea 06/10/24 62.5 mcg-vilant 25 mcg inhalat.powder (Trelegy Ellipta) folic acid 1 mg tablet 1 mg PO QAM #90 tabs 06/10/24 metoprolol succinate 25 mg 12.5 mg (1/2 x 25 mg) PO DAILY #45 06/10/24 tablet,extended release 24 hr tabs mirtazapine 15 mg tablet 15 mg PO HS #90 tabs 06/10/24 levothyroxine 150 mcg tablet 150 mcg PO DAILY #90 tabs 08/12/24 lisinopril 2.5 mg tablet 2.5 mg PO QAM #90 tabs 08/22/24 magnesium oxide 400 mg (241.3 mg 400 mg PO BID #60 tabs 08/23/24 magnesium) tablet dapagliflozin propanediol 10 mg 10 mg PO DAILY #30 tabs 09/13/24 tablet (Farxiga) oxycodone 5 mg tablet 5 mg PO QID PRN pain #120 tabs 10/30/24 Results & Data (ED) Vital Signs Vital Signs - 24 hr 11/07/24 21:56 11/07/24 22:00 11/07/24 22:23 Temperature 36.4 C L Temperature Source Oral Pulse Rate 90 90 Pulse Rate [Finger] 91 H Respiratory Rate 22 18 Blood Pressure 126/67 Blood Pressure [Right Arm] 126/77 Blood Pressure Mean 86 Blood Pressure Mean [Right Arm] 93 Pulse Oximetry 92 93 Oxygen Delivery Method Nasal Cannula Nasal Cannula Oxygen Flow Rate 2 2 Sepsis Recent Fever Within 48 Hours No Sepsis New/Unexplained Change in Mental Status N/A Sepsis Action Taken by Nursing No Action Required 11/07/24 23:00 11/08/24 00:00 Temperature Temperature Source Pulse Rate Pulse Rate [Finger] 86 85 Respiratory Rate 20 22 Blood Pressure Blood Pressure [Right Arm] 139/86 152/70 H Blood Pressure Mean Blood Pressure Mean [Right Arm] 103 97 Pulse Oximetry 92 93 Oxygen Delivery Method Nasal Cannula Nasal Cannula Oxygen Flow Rate 4 4 Sepsis Recent Fever Within 48 Hours Sepsis New/Unexplained Change in Mental Status Sepsis Action Taken by Intermediate Medications Current Medication List: was personally reviewed by me Laboratory Data Attestation: I reviewed the patient's lab results. 11/07/24 22:30 11/07/24 22:30 Lab Results 11/07/24 11/07/24 Range/Units 22:30 22:41 WBC 13.19 H (4.8-10.8) K/ul RBC 5.07 (4.20-5.40) M/uL Hgb 12.0 (12.0-16.0) g/dl POC Hgb 14.6 (12.0-16.0) g/dl Hct 39.5 (37.0-47.0) % POC Hct 43 (37-47) % MCV 77.9 L (80.0-100.0) fL MCH 23.7 L (25.0-34.0) pg MCHC 30.4 L (32.0-36.0) g/dL RDW Std Deviation 56.6 H (36.4-46.3) fL RDW Coeff of Claudette 21.0 H (11.5-14.5) % Plt Count 116 L (130-400) K/uL MPV 9.8 (9.4-12.4) fL Immature Gran % (Auto) 0.7 % Neut % (Auto) 87.1 % Lymph % (Auto) 3.4 % Sampson % (Auto) 8.6 % Eos % (Auto) 0.0 % Baso % (Auto) 0.2 % Neut # (Auto) 11.48 H (1.40-6.50) K/uL Lymph # (Auto) 0.45 L (1.20-3.40) K/uL Sampson # (Auto) 1.14 H (0.11-0.59) K/uL Eos # (Auto) 0.00 (0.00-0.50) K/uL Baso # (Auto) 0.03 (0.00-0.20) K/uL Immature Gran # (Auto) 0.09 (0.01-0.20) K/uL Absolute Nucleated RBC 0.08 (0.00-0.12) K/uL Nucleated RBC % (auto) 0.6 % Toxic Vacuolation 1+ Polychromasia 2+ Basophilic Stippling 1+ Anisocytosis Present Echinocytes 1+ PT 17.7 H (9.0-12.0) Seconds INR 1.7 H (0.9-1.1) APTT 33 H (21-31) Seconds PTT Ratio 1.2 POC Sodium 134 L (135-144) mmol/L Sodium 135 L (136-145) mmol/L POC Potassium 5.7 H (3.3-5.0) mmol/L Potassium 5.5 H (3.5-5.1) mmol/L POC Chloride 100 L (101-112) mmol/L Chloride 98 (98-107) mmol/L Carbon Dioxide 21 (21-32) mmol/L POC Total CO2 23 L (24-31) mmol/L Anion Gap 16 H (3-11) POC Anion Gap 17.0 (16-25) mmol/L POC BUN 52 H (7-18) mg/dl BUN 49 H (6-23) mg/dl Creatinine 2.92 H (0.6-1.2) mg/dl POC Creatinine 3.1 H (0.6-1.3) mg/dl Est Cr Clr Drug Dosing 13.6 ml/min eGFR 17.50 BUN/Creatinine Ratio 16.8 (10-20) Glucose 95 (70-99(Fasting)) mg/dl POC Glucose (other) 93 (70-99) mg/dl Calcium 8.4 L (8.6-10.3) mg/dl POC Ioniz Calcium Dragan 0.97 L (1.12-1.32) mmol/l Total Bilirubin 2.2 H (0.2-1.0) mg/dl AST 186 H (13-39) U/L ALT 87 H (7-52) U/L Alkaline Phosphatase 294 H (34-104) U/L Total Creatine Kinase 75 (26-192) U/L Troponin I High Sens 121.4 H* (0-14) pg/ml B-Natriuretic Peptide 3575 H (0-100) pg/ml Total Protein 6.2 (6.0-8.3) gm/dl Albumin 3.2 L (3.4-5.0) gm/dl Globulin 3.0 (2.5-4.0) gm/dl Albumin/Globulin Ratio 1.1 (0.9-2) Lipase 10 L (11-82) U/L Administered Medications Discontinued Medications Morphine Sulfate (Morphine Sulfate 4 Mg/Ml 1 Ml Carp\\Vial) 4 mg IV NOW STA Stop: 11/08/24 00:04 Last Admin: 11/08/24 00:07 Dose: 4 mg Documented By: MICHAEL Ondansetron HCl (Ondansetron Inj 2 Mg/Ml 2 Ml Vial) 4 mg IV NOW STA Stop: 11/08/24 00:04 Last Admin: 11/08/24 00:08 Dose: 4 mg Documented By: MICHAEL Imaging Data Attestation: I personally reviewed and interpreted this imaging study as follows: My Impression: 1 view chest x-ray was obtained in the emergency department. My interpretation is pleural effusion noted, no free air, final report below. Radiologist's Impression: Chest X-Ray 11/07/24 21:55 Exam(s): XR CXR 1 VIEW EXAM: XR Chest, 1 View CLINICAL HISTORY: Reason for exam: Trauma. TECHNIQUE: Frontal view of the chest. COMPARISON: 08/19/2024 FINDINGS: Lungs: Left basilar airspace disease, similar to prior. Mild right basilar opacities suggesting atelectasis, similar to prior. Interstitial prominence bilaterally. Pleural space: Small bilateral pleural effusions, left larger than right. No pneumothorax. Heart: No cardiomegaly. Enlarged pulmonary outflow tract suggesting pulmonary arterial hypertension. Bones/joints: Sternotomy. No acute osseous findings. IMPRESSION: 1. Left basilar airspace disease, similar to prior. 2. Small bilateral pleural effusions, left larger than right. 3. Interstitial prominence bilaterally. Appearance is similar to prior and may be chronic. Component of pulmonary edema may be present as well. Electronically signed by: Crys Hester M.D. 11/07/24 23:[address] 11/07/24 21:55 Exam(s): CT L SPINE EXAM: CT Lumbar Spine Without Intravenous Contrast CLINICAL HISTORY: Reason for exam: trauma. TECHNIQUE: Axial computed tomography images of the lumbar spine without intravenous contrast. CTDI is 38.64 mGy and DLP is 546.36 mGy-cm. Automated exposure control was utilized for the study. A dose lowering technique was utilized adhering to the principles of ALARA. COMPARISON: No relevant prior studies available. FINDINGS: Vertebrae: Osteopenia. No acute fracture or traumatic subluxation. Discs/spinal canal/neural foramina: Disc heights maintained. No spinal canal stenosis. Soft tissues: Unremarkable. Vasculature: Atherosclerotic vascular disease. Other findings: Multiple focal osseous lucencies. IMPRESSION: No acute osseous findings. Multiple focal osseous lucencies. Appearance could relate to metabolic bone disease and/or myeloma. Correlate clinically. Electronically signed by: Crys Hester M.D. 11/08/24 00:[address] 11/07/24 21:55 Exam(s): CT T SPINE EXAM: CT Thoracic Spine Without Intravenous Contrast CLINICAL HISTORY: Reason for exam: trauma. TECHNIQUE: Axial computed tomography images of the thoracic spine without intravenous contrast. CTDI is 38.64 mGy and DLP is 546.36 mGy-cm. Automated exposure control was utilized for the study. A dose lowering technique was utilized adhering to the principles of ALARA. COMPARISON: No relevant prior studies available. FINDINGS: Vertebrae: Osteopenia. Multiple focus osseous lucencies. No acute fracture or subluxation. Discs/spinal canal/neural foramina: Disc degeneration in the midthoracic spine. No spinal canal stenosis. Soft tissues: Unremarkable. Pleural space: Small bsmb-vodgaqy-gbrl-right pleural effusions. IMPRESSION: No acute osseous findings. Multiple focus osseous lucencies. Appearance could relate to metabolic bone disease and/or myeloma. Correlate clinically. Electronically signed by: Crys Hester M.D. 11/08/24 00:12 AM Abdomen/Pelvis CT 11/07/24 22:55 Exam(s): CT ABDOMEN + PELVIS Without Contrast EXAM: CT Abdomen and Pelvis Without Intravenous Contrast CLINICAL HISTORY: Reason for exam: trauma. TECHNIQUE: Axial computed tomography images of the abdomen and pelvis without intravenous contrast. CTDI is 38.64 mGy and DLP is 546.36 mGy-cm. Automated exposure control was utilized for the study. A dose lowering technique was utilized adhering to the principles of ALARA. COMPARISON: No relevant prior studies available. FINDINGS: Lung bases: Reported separately. ABDOMEN: Liver: Unremarkable. Gallbladder and bile ducts: Cholecystectomy. No ductal dilation. Pancreas: Unremarkable. No ductal dilation. Spleen: Calcified splenic granulomata. Adrenals: Unremarkable. No mass. Kidneys and ureters: Unremarkable. No hydronephrosis or radiopaque stones. Stomach and bowel: No bowel obstruction. Colonic wall thickening. PELVIS: Appendix: Appendix not visualized. Bladder: Unremarkable urinary bladder. No stones. Reproductive: Hysterectomy. ABDOMEN and PELVIS: Intraperitoneal space: Trace ascites and mesenteric edema. No free air. Bones/joints: Osteopenia. Multiple focal osseous lucencies. No acute fracture. No dislocation. Soft tissues: Anasarca. Vasculature: Atherosclerotic vascular disease. No aortic aneurysm. Lymph nodes: Unremarkable. No enlarged lymph nodes. IMPRESSION: 1. Multiple focal osseous lucencies. Appearance could be related to metabolic bone disease and/or myeloma. Correlate clinically. 2. Colonic wall thickening. Appearance raises concern for colitis. Correlate clinically. 3. No acute traumatic findings. Electronically signed by: Crys Hester M.D. 11/08/24 00:[address] 11/07/24 22:55 Exam(s): CT C SPINE EXAM: CT Cervical Spine Without Intravenous Contrast CLINICAL HISTORY: Reason for exam: Trauma. TECHNIQUE: Axial computed tomography images of the cervical [place] [address] mGy and DLP is 546.36 mGy-cm. Automated exposure control was utilized for the study. A dose lowering technique was utilized adhering to the principles of ALARA. COMPARISON: No relevant prior studies available. FINDINGS: Vertebrae: Osteopenia. Scattered focal lucencies throughout the skeleton. No acute fracture or traumatic subluxation. Discs/spinal canal/neural foramina: Mild multilevel disc degeneration. Disc-osteophyte complexes producing multilevel spinal canal stenosis, moderate at C4-C5. Soft tissues: Unremarkable. IMPRESSION: 1. No acute fracture or traumatic subluxation. 2. Osteopenia. Scattered focal lucencies throughout the skeleton. Overall appearance could represent metabolic bone disease or myeloma. Correlate clinically. Electronically signed by: Crys Hester M.D. 11/08/24 00:[address] 11/07/24 22:55 Exam(s): CT CHEST Without Contrast EXAM: CT Chest Without Intravenous Contrast CLINICAL HISTORY: Reason for exam: trauma. TECHNIQUE: Axial computed tomography images of the chest without intravenous contrast. CTDI is 38.64 mGy and DLP is 546.36 mGy-cm. Automated exposure control was utilized for the study. A dose lowering technique was utilized adhering to the principles of ALARA. COMPARISON: 06/04/2024 FINDINGS: Lungs: Bibasilar airspace disease, [id number]-[id number]-right. Interstitial prominence bilaterally suggesting pulmonary edema. No pulmonary contusion. No mass. Centrilobular emphysema. Pleural space: Small bilateral pleural effusions, rvic-iukinnb-klhx- right. Left pleural effusion is partially loculated along the pulmonary fissure. Heart: Mitral annular calcification. Cardiomegaly and coronary artery atherosclerosis. No pericardial effusion. Bones/joints: Osteopenia. Scattered focal osseous lucencies. Prior sternotomy. No acute fracture or dislocation. Soft tissues: Unremarkable. Vasculature: Calcified thoracic aorta without aneurysm. Lymph nodes: No enlarged lymph nodes. IMPRESSION: 1. Small bilateral pleural effusions, [id number]-tpspwrq-dyee-right. Left pleural effusion is partially loculated along the pulmonary fissure. 2. Bibasilar airspace disease, [id number]-[id number]-pgew-right. Atelectasis is favored. 3. Interstitial prominence bilaterally suggesting pulmonary edema. 4. Scattered focal osseous lucencies. Overall appearance could be related to metabolic bone disease and/or myeloma. Correlate clinically. Electronically signed by: Crys Hester M.D. 11/08/24 00:[address] 11/07/24 22:55 Exam(s): CT HEAD Without Contrast EXAM: CT Head Without Intravenous Contrast CLINICAL HISTORY: Reason for exam: Trauma. TECHNIQUE: Axial computed tomography images of the head/brain without intravenous contrast. CTDI is 38.64 mGy and DLP is 546.36 mGy-cm. Automated exposure control was utilized for the study. A dose lowering technique was utilized adhering to the principles of ALARA. COMPARISON: No relevant prior studies available. FINDINGS: Brain: Generalized parenchymal volume loss. Periventricular and deep cerebral white matter hypoattenuation suggesting chronic small vessel ischemic change. Chronic lacunar infarcts bilateral basal ganglia. Sheridan- white matter differentiation maintained. No hemorrhage, mass effect, parenchymal edema, or midline shift. Ventricles: No hydrocephalus. Bones/joints: No acute fracture. Soft tissues: Unremarkable. Vasculature: Intracranial atherosclerosis. Sinuses: Unremarkable as visualized. Mastoid air cells: No significant mastoid effusion. IMPRESSION: No acute intracranial process. Electronically signed by: Crys Hester M.D. 11/08/24 00:08 AM Discharge Plan Visit Data Chief Complaint: Fall Stated Complaint: Fall, Weakness ED Provider: Dejon Ariza Discharge Problem: Fall, Elevated troponin I level, Lumbar contusion, Pleural effusion, BRITTNEY (acute kidney injury) Patient Disposition: Being Evaluated by Hospitalist Condition: Fair Forms Stand Alone Forms: My [facility] Prescriptions Prescriptions: No Action (DME) nebulizers [facility] See Rx Instructions .Route Qty: 1 0RF Rx Instructions: Use with albuterol and saline nebulizer solution as directed (DME) nebulizer accessories Misc See Rx Instructions .Route Qty: 5 3RF Rx Instructions: TUBING AND ADULT ADMINISTRATION DEVICE/MASK (DME) Wheeled Walker Misc See Rx Instructions .Route Qty: 1 0RF Rx Instructions: As directed sodium chloride 7 % solution for nebulization 4 ml NEB BIDR Qty: 240 0RF cholecalciferol (vitamin D3) [Vitamin D3] 50 mcg (2,000 unit) tablet 4,000 unit PO QAM 90 Days Qty: 180 3RF spironolactone 25 mg tablet 25 mg PO DAILY Qty: 90 3RF atorvastatin 40 mg tablet 40 mg PO QPM Qty: 90 3RF clopidogrel 75 mg tablet 75 mg PO QPM Qty: 90 3RF montelukast 10 mg tablet 10 mg PO QAM Qty: 90 3RF levetiracetam [Keppra] 500 mg tablet 500 mg PO BID 90 Days Qty: 180 3RF pantoprazole 40 mg tablet,delayed release (DR/EC) 40 mg PO DAILY Qty: 90 3RF amiodarone 200 mg tablet 200 mg PO QAM Qty: 90 3RF metoprolol succinate 25 mg tablet extended release 24 hr 12.5 mg PO DAILY Qty: 45 3RF mirtazapine 15 mg tablet 15 mg PO HS Qty: 90 1RF cyanocobalamin (vitamin B-12) 1,000 mcg tablet 1,000 mcg PO QAM Qty: 90 3RF Trelegy Ellipta 200-62.5-25 mcg blister with device 1 inh inhalation DAILY Qty: 60 5RF folic acid 1 mg tablet 1 mg PO QAM Qty: 90 3RF levothyroxine 150 mcg tablet 150 mcg PO DAILY Qty: 90 3RF lisinopril 2.5 mg tablet 2.5 mg PO QAM Qty: 90 3RF oxycodone 5 mg tablet 5 mg PO QID PRN (Reason: pain) Qty: 120 0RF Rx Instructions: Must last 30 days. (DME) Oxygen Home Liters Per Minute See Rx Instructions .Route Rx Instructions: 3 L/min at all times as directed Tymlos 80 mcg (3,120 mcg/1.56 mL) pen injector 80 mcg subcut DAILY Qty: 1.56 11RF Rx Instructions: inject into abdomen; do not inject within 2 inches of belly button/navel; rotate sites (DME) pen needle, diabetic [BD Aruna 2nd Gen Pen Needle] 32 gauge x 5/32" needle See Rx Instructions .Route Qty: 100 0RF Rx Instructions: As directed dapagliflozin propanediol [Farxiga] 10 mg tablet 10 mg PO DAILY Qty: 30 2RF ipratropium-albuterol 0.5 mg-3 mg(2.5 mg base)/3 mL solution for nebulization 3 ml NEB QID PRN (Reason: shortness of breath or wheezing) magnesium oxide 400 mg (241.3 mg magnesium) Tablet 400 mg PO BID Qty: 60 0RF Rx Instructions: Over the counter Referrals Referrals: Barrington Joshi MD [Primary Care Provider] -
[2024-11-07 23:09] LABS: Alanine Aminotransferase 87.0 U/L (7-52); Albumin Globulin Ratio 1.1 (0.9-2); Alkaline Phosphatase 294.0 U/L (34-104); Anion Gap 16.0 (3-11); Bilirubin,Total 2.2 mg/dl (0.2-1.0); Blood Urea Nitrogen 49.0 mg/dl (6-23); Calcium 8.4 mg/dl (8.6-10.3); Carbon Dioxide 21.0 mmol/L (21-32); Chloride 98.0 mmol/L (98-107); Creatine Kinase 75.0 U/L (26-192); Creatinine Clr Calc Pharmacy 13.6 ml/min; Globulin 3.0 gm/dl (2.5-4.0); Glucose 95.0 mg/dl (70-99(Fasting)); Lipase 10.0 U/L (11-82); Potassium 5.5 mmol/L (3.5-5.1); Sodium 135.0 mmol/L (136-145); Total Protein 6.2 gm/dl (6.0-8.3)
[2024-11-07 23:16] LABS: Hematocrit (blood only) 39.5 % (37.0-47.0); Hemoglobin 12.0 g/dl (12.0-16.0); Mean Corpuscular Hemoglobin 23.7 pg (25.0-34.0); Mean Corpuscular Volume 77.9 fL (80.0-100.0); Platelet Count 116 K/uL (130-400); RDW Standard Deviation 56.6 fL (36.4-46.3); Red Blood Count 5.07 M/uL (4.20-5.40); White Blood Count 13.19 K/ul (4.8-10.8)
[2024-11-07 23:20] LABS: Anisocytosis Present; Basophilic Stippling 1+; Immature Granulocytes # (auto) 0.09 K/uL (0.01-0.20); Immature Granulocytes % (auto) 0.7 %; Polychromasia 2+; Toxic Vacuolation 1+
--- NOTE | 2024-11-07 23:41 | XRay Report ---
Exam(s): XR CXR 1 VIEW EXAM: XR Chest, 1 View CLINICAL HISTORY: Reason for exam: Trauma. TECHNIQUE: Frontal view of the chest. COMPARISON: 08/19/2024 FINDINGS: Lungs: Left basilar airspace disease, similar to prior. Mild right basilar opacities suggesting atelectasis, similar to prior. Interstitial prominence bilaterally. Pleural space: Small bilateral pleural effusions, left larger than right. No pneumothorax. Heart: No cardiomegaly. Enlarged pulmonary outflow tract suggesting pulmonary arterial hypertension. Bones/joints: Sternotomy. No acute osseous findings. IMPRESSION: 1. Left basilar airspace disease, similar to prior. 2. Small bilateral pleural effusions, left larger than right. 3. Interstitial prominence bilaterally. Appearance is similar to prior and may be chronic. Component of pulmonary edema may be present as well. Electronically signed by: Crys Hester M.D. 11/07/24 23:40 PM
[2024-11-07 23:46] LABS: INR 1.7 (0.9-1.1); Partial Thromboplastin Time 33 Seconds (21-31); Prothrombin Time 17.7 Seconds (9.0-12.0)
--- NOTE | 2024-11-08 00:05 | CT Scan Report ---
Exam(s): CT C SPINE EXAM: CT Cervical Spine Without Intravenous Contrast CLINICAL HISTORY: Reason for exam: Trauma. TECHNIQUE: Axial computed tomography images of the cervical spine [place] [address] mGy and DLP is 546.36 mGy-cm. Automated exposure control was utilized for the study. A dose lowering technique was utilized adhering to the principles of ALARA. COMPARISON: No relevant prior studies available. FINDINGS: Vertebrae: Osteopenia. Scattered focal lucencies throughout the skeleton. No acute fracture or traumatic subluxation. Discs/spinal canal/neural foramina: Mild multilevel disc degeneration. Disc-osteophyte complexes producing multilevel spinal canal stenosis, moderate at C4-C5. Soft tissues: Unremarkable. IMPRESSION: 1. No acute fracture or traumatic subluxation. 2. Osteopenia. Scattered focal lucencies throughout the skeleton. Overall appearance could represent metabolic bone disease or myeloma. Correlate clinically. Electronically signed by: Crys Hester M.D. 11/08/24 00:04 AM
[2024-11-08] MEDS: MoRPHine SULFATE 4 MG/ML 1 ML CARP\\VIAL IV STA (00:07)
[2024-11-08] MEDS: ONDANSETRON INJ 2 MG/ML 2 ML VIAL IV STA (00:08)
--- NOTE | 2024-11-08 00:08 | CT Scan Report ---
Exam(s): CT CHEST Without Contrast EXAM: CT Chest Without Intravenous Contrast CLINICAL HISTORY: Reason for exam: trauma. TECHNIQUE: Axial computed tomography images of the chest without intravenous contrast. CTDI is 38.64 mGy and DLP is 546.36 mGy-cm. Automated exposure control was utilized for the study. A dose lowering technique was utilized adhering to the principles of ALARA. COMPARISON: 06/04/2024 FINDINGS: Lungs: Bibasilar airspace disease, [id number]-right. Interstitial prominence bilaterally suggesting pulmonary edema. No pulmonary contusion. No mass. Centrilobular emphysema. Pleural space: Small bilateral pleural effusions, ijjq-[id number]-dxjo- right. Left pleural effusion is partially loculated along the pulmonary fissure. Heart: Mitral annular calcification. Cardiomegaly and coronary artery atherosclerosis. No pericardial effusion. Bones/joints: Osteopenia. Scattered focal osseous lucencies. Prior sternotomy. No acute fracture or dislocation. Soft tissues: Unremarkable. Vasculature: Calcified thoracic aorta without aneurysm. Lymph nodes: No enlarged lymph nodes. IMPRESSION: 1. Small bilateral pleural effusions, pyoe-[id number]-pjof-right. Left pleural effusion is partially loculated along the pulmonary fissure. 2. Bibasilar airspace disease, [id number]-[id number]-right. Atelectasis is favored. 3. Interstitial prominence bilaterally suggesting pulmonary edema. 4. Scattered focal osseous lucencies. Overall appearance could be related to metabolic bone disease and/or myeloma. Correlate clinically. Electronically signed by: Crys Hester M.D. 11/08/24 00:07 AM
--- NOTE | 2024-11-08 00:09 | CT Scan Report ---
Exam(s): CT HEAD Without Contrast EXAM: CT Head Without Intravenous Contrast CLINICAL HISTORY: Reason for exam: Trauma. TECHNIQUE: Axial computed tomography images of the head/brain without intravenous contrast. CTDI is 38.64 mGy and DLP is 546.36 mGy-cm. Automated exposure control was utilized for the study. A dose lowering technique was utilized adhering to the principles of ALARA. COMPARISON: No relevant prior studies available. FINDINGS: Brain: Generalized parenchymal volume loss. Periventricular and deep cerebral white matter hypoattenuation suggesting chronic small vessel ischemic change. Chronic lacunar infarcts bilateral basal ganglia. Sheridan- white matter differentiation maintained. No hemorrhage, mass effect, parenchymal edema, or midline shift. Ventricles: No hydrocephalus. Bones/joints: No acute fracture. Soft tissues: Unremarkable. Vasculature: Intracranial atherosclerosis. Sinuses: Unremarkable as visualized. Mastoid air cells: No significant mastoid effusion. IMPRESSION: No acute intracranial process. Electronically signed by: Crys Hester M.D. 11/08/24 00:08 AM
--- NOTE | 2024-11-08 00:11 | CT Scan Report ---
Exam(s): CT ABDOMEN + PELVIS Without Contrast EXAM: CT Abdomen and Pelvis Without Intravenous Contrast CLINICAL HISTORY: Reason for exam: trauma. TECHNIQUE: Axial computed tomography images of the abdomen and pelvis without intravenous contrast. CTDI is 38.64 mGy and DLP is 546.36 mGy-cm. Automated exposure control was utilized for the study. A dose lowering technique was utilized adhering to the principles of ALARA. COMPARISON: No relevant prior studies available. FINDINGS: Lung bases: Reported separately. ABDOMEN: Liver: Unremarkable. Gallbladder and bile ducts: Cholecystectomy. No ductal dilation. Pancreas: Unremarkable. No ductal dilation. Spleen: Calcified splenic granulomata. Adrenals: Unremarkable. No mass. Kidneys and ureters: Unremarkable. No hydronephrosis or radiopaque stones. Stomach and bowel: No bowel obstruction. Colonic wall thickening. PELVIS: Appendix: Appendix not visualized. Bladder: Unremarkable urinary bladder. No stones. Reproductive: Hysterectomy. ABDOMEN and PELVIS: Intraperitoneal space: Trace ascites and mesenteric edema. No free air. Bones/joints: Osteopenia. Multiple focal osseous lucencies. No acute fracture. No dislocation. Soft tissues: Anasarca. Vasculature: Atherosclerotic vascular disease. No aortic aneurysm. Lymph nodes: Unremarkable. No enlarged lymph nodes. IMPRESSION: 1. Multiple focal osseous lucencies. Appearance could be related to metabolic bone disease and/or myeloma. Correlate clinically. 2. Colonic wall thickening. Appearance raises concern for colitis. Correlate clinically. 3. No acute traumatic findings. Electronically signed by: Crys Hester M.D. 11/08/24 00:10 AM
--- NOTE | 2024-11-08 00:12 | CT Scan Report ---
Exam(s): CT T SPINE EXAM: CT Thoracic Spine Without Intravenous Contrast CLINICAL HISTORY: Reason for exam: trauma. TECHNIQUE: Axial computed tomography images of the thoracic spine without intravenous contrast. CTDI is 38.64 mGy and DLP is 546.36 mGy-cm. Automated exposure control was utilized for the study. A dose lowering technique was utilized adhering to the principles of ALARA. COMPARISON: No relevant prior studies available. FINDINGS: Vertebrae: Osteopenia. Multiple focus osseous lucencies. No acute fracture or subluxation. Discs/spinal canal/neural foramina: Disc degeneration in the midthoracic spine. No spinal canal stenosis. Soft tissues: Unremarkable. Pleural space: Small hvng-lpduoke-fqwj-right pleural effusions. IMPRESSION: No acute osseous findings. Multiple focus osseous lucencies. Appearance could relate to metabolic bone disease and/or myeloma. Correlate clinically. Electronically signed by: Crys Hester M.D. 11/08/24 00:12 AM
--- NOTE | 2024-11-08 00:13 | CT Scan Report ---
Exam(s): CT L SPINE EXAM: CT Lumbar Spine Without Intravenous Contrast CLINICAL HISTORY: Reason for exam: trauma. TECHNIQUE: Axial computed tomography images of the lumbar spine without intravenous contrast. CTDI is 38.64 mGy and DLP is 546.36 mGy-cm. Automated exposure control was utilized for the study. A dose lowering technique was utilized adhering to the principles of ALARA. COMPARISON: No relevant prior studies available. FINDINGS: Vertebrae: Osteopenia. No acute fracture or traumatic subluxation. Discs/spinal canal/neural foramina: Disc heights maintained. No spinal canal stenosis. Soft tissues: Unremarkable. Vasculature: Atherosclerotic vascular disease. Other findings: Multiple focal osseous lucencies. IMPRESSION: No acute osseous findings. Multiple focal osseous lucencies. Appearance could relate to metabolic bone disease and/or myeloma. Correlate clinically. Electronically signed by: Crys Hester M.D. 11/08/24 00:12 AM
--- NOTE | 2024-11-08 01:23 | History & Physical Report ---
Date of Service November 08, 2024 Assessment & Plan (1) Failure to thrive in adult: (2) BRITTNEY (acute kidney injury): (3) HFrEF (heart failure with reduced ejection fraction): (4) Bone lesion: (5) Pleural effusion: (6) Elevated troponin I level: (7) COPD (chronic obstructive pulmonary disease): Plan 64yo female presenting with failure to thrive. Patient reports several weeks of poor appetite and decreased oral intake. She states she hasn't eaten more than a few bites a day for weeks. Also with generalized weakness. Patient sustained an unwitnessed fall at home and was unable to get up due to her weakness. #Failure to thrive in the adult - patient reports poor appetite, decreased oral intake for the last month. -Check Mg and PO4, replete as needed -Will administer 1 dose of Vitamin K 5mg in the AM due to elevated INR, likely dietary deficiency -Encourage oral intake. Regular diet ordered -PT/OT evaluations appreciated #BRITTNEY- BUN=49, Cr=2.92 which is increased from last values of 29.7 and 1.44, respectively, on 09/26/24. Likely multifactorial - secondary to decreased oral intake as well as medication effects. Patient on Lisinopril and Spironolactone as an outpatient. She reports she has continued to take her medications. She has mildly elevated potassium at 5.5. EKG with no acute ischemic changes -Check urine Na and Cr for FeNA calculation -Avoid nephrotoxic agents -Renal dosing where needed -Albumin 5% x 250mL -Will provide gentle IVF, LR at 80mL/hr -Repeat chemistry in AM #HFrEF/Pleural effusions - Echocardiogram 08/17/24 with normal LV function, mild LVH, moderate Aortic regurgitation and bioprosthetic mitral valve. Patient appears to be mildly overloaded with edema, rales, marked elevation of BNP. Overall intravascularly volume depleted, however -Giving Albumin and LR as above -Continue Metoprolol -Holding Spironolactone and Lisinopril for now #Hypothyroidism -Check TSH -Continue Synthroid #Skeletal lesions - concerning for metabolic bone disease vs myeloma. Patient also with BRITTNEY as well as likely anemia (microcytosis, expect H/H to drop after hydration) -Check SPEP and [place]/Lambda Light Chains in the urine #COPD - no SOB, cough or wheeze at present -Continue Trelegy or formulary equivalent -DuoNebs PRN #Paroxysmal atrial fibrillation -Continue Amiodarone 200mg po daily #GERD -Continue Protonix History of Present Illness Chief Complaint: fall, failure to thrive, BRITTNEY Primary Care Provider: Barrington Joshi MD Jennifer Morrison is a 64yo female with history of HLP, COPD, GERD, Depression/Anxiety presenting from home after an unwitnessed fall. Patient reports last evening she was getting out of bed to used the bathroom around 19:00. She lost her balance and fell to the ceramic tile floor. No head trauma or LOC. No acute injuries identified. Patient was unable to get up from the floor and she laid there for about 2.5 hours until her boyfriend got home and helped her up. Patient with generalized weakness, difficulty getting up even with assistance. Overall patient reports poor appetite and decreased oral intake over the last several weeks. She reports that she barely eats anything at all and takes only a few sips of liquid daily. She has been continuing her medications. No additional complaints at this time. She denies fever, chills, cough, SOB, chest pain, abdominal pain, nausea, vomiting, diarrhea. No abdominal pain or urinary complaints. She does report swelling in her bilateral LE and a slight cough - fells as though she is retaining fluid in her legs. In the ER she is afebrile, HD stable, NAD ER Course: Zofran 4mg IV Morphine 4mg IV Allergies Allergy/AdvReac Type Severity Reaction Status Date / Time aspirin Allergy Intermediate Hives Verified 09/13/24 09:50 hydrochlorothiazide Allergy Intermediate RASH/"Sick Verified 09/13/24 09:50 in stomach" trazodone AdvReac Severe Vomiting Verified 09/13/24 09:50 furosemide AdvReac Intermediate ELEVATED Verified 09/13/24 09:50 CREATINE tramadol AdvReac Mild Nausea Verified 09/13/24 09:50 Home Medications Medication Instructions Recorded Confirmed Type ipratropium 0.5 mg-albuterol 3 mg 3 ml NEB QID PRN shortness of 02/07/23 11/07/24 History (2.5 mg base)/3 mL nebulization breath or wheezing soln nebulizer accessories #5 ea 02/13/23 11/07/24 Rx nebulizers #1 ea 02/13/23 11/07/24 Rx Wheeled Walker #1 ea 02/22/23 11/07/24 Rx sodium chloride 7 % for 4 ml NEB BIDR #240 mL 05/11/23 11/07/24 Rx nebulization cholecalciferol (vitamin D3) 50 4,000 unit PO QAM 90 days #180 tabs 08/18/2302/22 Rx mcg (2,000 unit) tablet (Vitamin D3) spironolactone 25 mg tablet 25 mg PO DAILY #90 tabs 11/07/23 11/07/24 Rx atorvastatin 40 mg tablet 40 mg PO QPM #90 tabs 02/23/24 11/07/24 Rx Oxygen Home 02/26/24 11/07/24 History clopidogrel 75 mg tablet 75 mg PO QPM #90 tabs 02/28/24 11/07/24 Rx montelukast 10 mg tablet 10 mg PO QAM #90 tabs 02/29/24 11/07/24 Rx abaloparatide (Tymlos) 80 mcg (0.04 mL) subcut DAILY 03/04/24 11/07/24 Rx #1.56 mL pen needle, diabetic 32 gauge x #100 ea 03/05/24 11/07/24 Rx 5/32" (BD Aruna 2nd Gen Pen Needle) levetiracetam 500 mg tablet 500 mg PO BID 90 days #180 tabs 05/10/24 11/07/24 Rx (Keppra) pantoprazole 40 mg tablet,delayed 40 mg PO DAILY #90 tabs 05/28/24 11/07/24 Rx release amiodarone 200 mg tablet 200 mg PO QAM #90 tabs 06/10/24 11/07/24 Rx cyanocobalamin (vitamin B-12) 1,000 mcg PO QAM #90 tabs 06/10/24 11/07/24 Rx 1,000 mcg tablet fluticasone fur. 200 mcg-umeclid 1 inh inhalation DAILY #60 ea 06/10/24 11/07/24 Rx 62.5 mcg-vilant 25 mcg inhalat.powder (Trelegy Ellipta) folic acid 1 mg tablet 1 mg PO QAM #90 tabs 06/10/24 11/07/24 Rx metoprolol succinate 25 mg 12.5 mg (1/2 x 25 mg) PO DAILY #45 06/10/24 11/07/24 Rx tablet,extended release 24 hr tabs mirtazapine 15 mg tablet 15 mg PO HS #90 tabs 06/10/24 11/07/24 Rx levothyroxine 150 mcg tablet 150 mcg PO DAILY #90 tabs 08/12/24 11/07/24 Rx lisinopril 2.5 mg tablet 2.5 mg PO QAM #90 tabs 08/22/24 11/07/24 Rx magnesium oxide 400 mg (241.3 mg 400 mg PO BID #60 tabs 08/23/24 11/07/24 Rx magnesium) tablet dapagliflozin propanediol 10 mg 10 mg PO DAILY #30 tabs 09/13/24 11/07/24 Rx tablet (Farxiga) oxycodone 5 mg tablet 5 mg PO QID PRN pain #120 tabs 10/30/24 11/07/24 Rx Past Med/Surg History Problem List (Updated 11/08/24 @ 01:39 by Becky Sharp DO) Bone lesion Failure to thrive in adult BRITTNEY (acute kidney injury) (Acute) Pleural effusion (Acute) Lumbar contusion (Acute) Elevated troponin I level (Acute) Fall (Acute) Heart failure with improved ejection fraction (HFimpEF) Myoclonus Valvular heart disease Cor pulmonale Hypomagnesemia (Acute) HFrEF (heart failure with reduced ejection fraction) BMI < 18.5 Moderate aortic regurgitation Heart failure with mid-range ejection fraction (HFmEF) Pancolitis (Acute) Nausea & vomiting (Acute) Pleural effusion on left (Acute) Elevated brain natriuretic peptide (BNP) level (Acute) Acute hypoxemic respiratory failure (Acute) Pulmonary edema (Acute) Acute CHF (Acute) Hypomagnesemia (Acute) Acute dyspnea (Acute) Ambulatory dysfunction CVA (cerebral vascular accident) Subacute ischemia on MRI02/23/2024-[facility] Closed rib fracture (Acute ~10/16/23) acute fractures of the right posterior 8th and 9th ribs. Note that both ribs are fractured at 2 sites. 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 use Chronic anticoagulation Paroxysmal atrial fibrillation Pneumonia (Acute) Cervicalgia (HFpEF) heart failure with preserved ejection fraction Collapse of left lung Elevated INR Atelectasis Abnormal EKG History of aortic valve repair NSVT (nonsustained ventricular tachycardia) Severe sepsis Malnutrition Elevated troponin COPD (chronic obstructive pulmonary disease) (Acute) Acute dehydration (Acute) Non-ST elevation AR (NSTEMI) (Acute) Hypomagnesemia (Acute) Positive colorectal cancer screening using Cologuard test per pt reason for scheduled colonoscopy Back pain Hypokalemia Asthma Bronchitis Emphysema lung Gallbladder problem Encounter for pre-operative examination Tobacco dependence Opioid dependence Abnormal diffusion capacity determined by pulmonary function test Personal history of nicotine dependence H/O stroke without residual deficits Anemia Vitamin D deficiency (Acute) Vitamin B12 deficiency (Acute) Restless legs syndrome (Acute) Raynauds disease (Acute) Paroxysmal SVT (supraventricular tachycardia) (Acute) Neuropathy (Acute) Low back pain (Acute) Insomnia (Acute) Congestive heart failure (Acute) Chronic pain (Acute) Cervical radiculopathy at C8 (Acute) Aortic regurgitation (Acute) Sore throat Cough Folate deficiency TIA (transient ischemic attack) Palpitations Tendinitis of left rotator cuff Cervical radicular pain Cardiomyopathy Vomiting Nausea and vomiting Low BMI Bilateral edema of lower extremity (Acute) Severe protein-calorie malnutrition Hypoxia (Acute) Dizziness (Acute) Acute respiratory failure with hypoxia Hypokalemia Acute on chronic diastolic CHF (congestive heart failure) recent diagnosis 01/07/23 at [facility]--pt states she is improving History of nicotine dependence Chronic dyspnea oxygen prn Diastolic CHF Hx laparoscopic cholecystectomy (01/13/21) Laparoscopic Cholecystectomy Dr. Pulido 01-13-2021 Cholecystitis Pulmonary hypertension S/P mitral valve replacement with bioprosthetic valve 2005 Osteoporosis CAD (coronary artery disease) Hypertension Medical History (Updated 11/08/24 @ 01:39 by Becky Sharp DO) Atrial flutter Hypoglycemia Acute hyperkalemia Sepsis Hyperkalemia Flu Sepsis Elevated troponin I level Acute respiratory failure with hypoxia and hypercapnia Positive colorectal cancer screening using Cologuard test On anticoagulant therapy plavix daily---MVR/AVR--follows with [facility] Chronic combined systolic (congestive) and diastolic (congestive) heart failure Bilateral pleural effusion hx Mitral valve disease s/p MVR (2005) History of aortic valve disease s/p AVR (2005) Chronic back pain + neck Arthritis Hyperlipidemia Ischemic stroke Remote hx per records (?11/2018) Emphysema/COPD inhaler daily/prn, nebulizer prn Fibromyalgia Peripheral neuropathy GERD (gastroesophageal reflux disease) Depression Anxiety Transient ischemic attack (TIA) 2005, 2019--no deficits, followed with Dr. Plummer (cleared) follows with PCP and cardiology Hyperlipidemia On home oxygen therapy 2L O2 HS + PRN Surgical History History of esophagogastroduodenoscopy (EGD) History of colonoscopy History of heart valve replacement AVR (2005) History of lung biopsy History of bronchoscopy H/O: hysterectomy Family History Mother Slow to wake up after anesthesia Sister Family history of diabetes mellitus Father Stroke Osteoarthritis Other Coronary heart disease Denies family history of Ovarian cancer Prostate cancer Breast cancer Colorectal cancer Social History Smoking Status: Former smoker Tobacco Type: Cigarettes Age Started Using Tobacco: 18; Age Quit Using Tobacco: 59; packs per day: 0.5; Second Hand Exposure: Yes (FAMILY SMOKED); Do You Dip or Chew Tobacco: No; Hx Alcohol Use: No Hx Substance Use: No Preferred Language: American Communication Ability: Effective Hearing Ability: Normal Vice President For Instruction Required: No Beliefs That Will Affect Care: None marital status: Current Living Situation: Significant Other Current Living Situation Comment: [place] current occupational status: unemployed and disabled How many Children do You have: 2 Feels Safe at Home: Yes Childhood Exposure to Second-Hand Smoke: Yes Diet: regular during the past year weight has: decreased > 10 lbs Dental Care, Regularly: No Physical Activity Frequency: 3-4 Times per Week Seatbelt Use: always Sunscreen Use: Yes Assistive Devices: Oxygen - Continuous and Walker Review of Systems Review of Systems: All systems reviewed & are unremarkable except as noted in HPI & below Physical Exam Physical Exam: General: patient extremely frail and cachectic in appearance, NAD, resting comfortably Skin: warm, dry, intact, no rashes or lesions, some skin tenting HEENT: NC/AT, PERRL, EOMI, anicteric sclera, conjunctiva without injection, external ear normal to inspection and nontender, nares patent, dry mucus membranes, dentition intact, no oropharyngeal lesions, neck supple, trachea midline, no LAD, no thyromegaly, no JVD Heart: +S1/S2, regular, no m/r/g Lungs: equal air entry bilaterally, crackles in bilateral bases Abd: +BS, soft, NT/ND, no masses/organomegaly/ascites Ext: warm, 2+ pulses in UE/LE bilaterally, no clubbing/cyanosis, 1+ pitting edema in bilateral LE Neuro: nonfocal, patient AA&O x 4, speech intact, no facial droop, moving all extremities on command with equal strength 5/5 Results & Data Results & Data Vital Signs (Past 12 Hours) Vital Signs Temp Pulse Pulse Resp BP BP Pulse Ox 11/08/24 01:00 86 20 156/64 H 94 11/08/24 00:00 85 22 152/70 H 93 11/07/24 23:00 86 20 139/86 92 11/07/24 22:23 90 11/07/24 22:00 91 H 18 126/77 93 11/07/24 21:56 36.4 C L 90 22 126/67 92 O2 Del Method O2 Flow Rate 11/08/24 01:00 Nasal Cannula 4 11/08/24 00:00 Nasal Cannula 4 11/07/24 23:00 Nasal Cannula 4 11/07/24 22:23 11/07/24 22:00 Nasal Cannula 2 11/07/24 21:56 Nasal Cannula 2 Laboratory Results Laboratory Results WBC 13.19 K/ul (4.8-10.8) H 11/07/24 22:30 RBC 5.07 M/uL (4.20-5.40) 11/07/24 22:30 Hgb 12.0 g/dl (12.0-16.0) 11/07/24 22:30 POC Hgb 14.6 g/dl (12.0-16.0) 11/07/24 22:41 Hct 39.5 % (37.0-47.0) 11/07/24 22:30 POC Hct 43 % (37-47) 11/07/24 22:41 MCV 77.9 fL (80.0-100.0) L 11/07/24 22:30 MCH 23.7 pg (25.0-34.0) L 11/07/24 22:30 MCHC 30.4 g/dL (32.0-36.0) L 11/07/24: RDW Std Deviation 56.6 fL (36.4-46.3) H 11/07/24:30 RDW Coeff of Claudette 21.0 % (11.5-14.5) H 11/07/24: Plt Count 116 K/uL (130-400) L 11/07/24: MPV 9.8 fL (9.4-12.4) 11/07/24: Immature Gran % (Auto) 0.7 % 11/07/24: Neut % (Auto) 87.1 % 11/07/24: Lymph % (Auto) 3.4 % 11/07/24: Pike % (Auto) 8.6 % 11/07/24: Eos % (Auto) 0.0 % 11/07/24: Baso % (Auto) 0.2 % 11/07/24: Neut # (Auto) 11.48 K/uL (1.40-6.50) H 11/07/24 22:30 Lymph # (Auto) 0.45 K/uL (1.20-3.40) L 11/07/24 22:30 Pike # (Auto) 1.14 K/uL (0.11-0.59) H 11/07/24 22:30 Eos # (Auto) 0.00 K/uL (0.00-0.50) 11/07/24: Baso # (Auto) 0.03 K/uL (0.00-0.20) 11/07/24: Immature Gran # (Auto) 0.09 K/uL (0.01-0.20) 11/07/24: Absolute Nucleated RBC 0.08 K/uL (0.00-0.12) 11/07/24: Nucleated RBC % (auto) 0.6 % 11/07/24:30 Toxic Vacuolation 1+ 11/07/24 22:30 Polychromasia 2+ 11/07/24 22: Basophilic Stippling 1+ 11/07/24 22:30 Anisocytosis Present 11/07/24 22:30 Echinocytes 1+ 11/07/24 22:30 PT 17.7 Seconds (9.0-12.0) H 11/07/24 22:30 INR 1.7 (0.9-1.1) H 11/07/24 22:30 APTT 33 Seconds (21-31) H 11/07/24 22:30 PTT Ratio 1.2 11/07/24 22:30 POC Sodium 134 mmol/L (135-144) L 11/07/24 22:41 Sodium 135 mmol/L (136-145) L 11/07/24 22:30 POC Potassium 5.7 mmol/L (3.3-5.0) H 11/07/24 22:41 Potassium 5.5 mmol/L (3.5-5.1) H 11/07/24 22:30 POC Chloride 100 mmol/L (101-112) L 11/07/24 22:41 Chloride 98 mmol/L (98-107) 11/07/24 22:30 Carbon Dioxide 21 mmol/L (21-32) 11/07/24 22:30 POC Total CO2 23 mmol/L (24-31) L 11/07/24 22:41 Anion Gap 16 (3-11) H 11/07/24 22:30 POC Anion Gap 17.0 mmol/L (16-25) 11/07/24 22:41 POC BUN 52 mg/dl (7-18) H 11/07/24 22:41 BUN 49 mg/dl (6-23) H 11/07/24 22:30 Creatinine 2.92 mg/dl (0.6-1.2) H 11/07/24 22:30 POC Creatinine 3.1 mg/dl (0.6-1.3) H 11/07/24 22:41 Est Cr Clr Drug Dosing 13.6 ml/min 11/07/24 22:30 eGFR 17.50 11/07/24 22:30 BUN/Creatinine Ratio 16.8 (10-20) 11/07/24 22:30 Glucose 95 mg/dl (70-99(Fasting)) 11/07/24 22:30 POC Glucose (other) 93 mg/dl (70-99) 11/07/24 22:41 Calcium 8.4 mg/dl (8.6-10.3) L 11/07/24 22:30 POC Ioniz Calcium Dragan 0.97 mmol/l (1.12-1.32) L 11/07/24 22:41 Total Bilirubin 2.2 mg/dl (0.2-1.0) H 11/07/24 22:30 AST 186 U/L (13-39) H 11/07/24 22:30 ALT 87 U/L (7-52) H 11/07/24 22:30 Alkaline Phosphatase 294 U/L (34-104) H 11/07/24 22:30 Total Creatine Kinase 75 U/L (26-192) 11/07/24 22:30 Troponin I High Sens 167.4 pg/ml (0-14) H* D 11/08/24 00:26 B-Natriuretic Peptide 3575 pg/ml (0-100) H 11/07/24 22:30 Total Protein 6.2 gm/dl (6.0-8.3) 11/07/24 22:30 Albumin 3.2 gm/dl (3.4-5.0) L 11/07/24 22:30 Globulin 3.0 gm/dl (2.5-4.0) 11/07/24 22:30 Albumin/Globulin Ratio 1.1 (0.9-2) 11/07/24 22:30 Lipase 10 U/L (11-82) L 11/07/24 22:30 Impressions Chest X-Ray 11/07/24 21:55 Exam(s): XR CXR 1 VIEW EXAM: XR Chest, 1 View CLINICAL HISTORY: Reason for exam: Trauma. TECHNIQUE: Frontal view of the chest. COMPARISON: 08/19/2024 FINDINGS: Lungs: Left basilar airspace disease, similar to prior. Mild right basilar opacities suggesting atelectasis, similar to prior. Interstitial prominence bilaterally. Pleural space: Small bilateral pleural effusions, left larger than right. No pneumothorax. Heart: No cardiomegaly. Enlarged pulmonary outflow tract suggesting pulmonary arterial hypertension. Bones/joints: Sternotomy. No acute osseous findings. IMPRESSION: 1. Left basilar airspace disease, similar to prior. 2. Small bilateral pleural effusions, left larger than right. 3. Interstitial prominence bilaterally. Appearance is similar to prior and may be chronic. Component of pulmonary edema may be present as well. Electronically signed by: Crys Hester M.D. 11/07/24 23:[address] 11/07/24 21:55 Exam(s): CT L SPINE EXAM: CT Lumbar Spine Without Intravenous Contrast CLINICAL HISTORY: Reason for exam: trauma. TECHNIQUE: Axial computed tomography images of the lumbar spine without intravenous contrast. CTDI is 38.64 mGy and DLP is 546.36 mGy-cm. Automated exposure control was utilized for the study. A dose lowering technique was utilized adhering to the principles of ALARA. COMPARISON: No relevant prior studies available. FINDINGS: Vertebrae: Osteopenia. No acute fracture or traumatic subluxation. Discs/spinal canal/neural foramina: Disc heights maintained. No spinal canal stenosis. Soft tissues: Unremarkable. Vasculature: Atherosclerotic vascular disease. Other findings: Multiple focal osseous lucencies. IMPRESSION: No acute osseous findings. Multiple focal osseous lucencies. Appearance could relate to metabolic bone disease and/or myeloma. Correlate clinically. Electronically signed by: Crys Hester M.D. 11/08/24 00:[address] 11/07/24 21:55 Exam(s): CT T SPINE EXAM: CT Thoracic Spine Without Intravenous Contrast CLINICAL HISTORY: Reason for exam: trauma. TECHNIQUE: Axial computed tomography images of the thoracic spine without intravenous contrast. CTDI is 38.64 mGy and DLP is 546.36 mGy-cm. Automated exposure control was utilized for the study. A dose lowering technique was utilized adhering to the principles of ALARA. COMPARISON: No relevant prior studies available. FINDINGS: Vertebrae: Osteopenia. Multiple focus osseous lucencies. No acute fracture or subluxation. Discs/spinal canal/neural foramina: Disc degeneration in the midthoracic spine. No spinal canal stenosis. Soft tissues: Unremarkable. Pleural space: Small revg-pfymrhy-qbbw-right pleural effusions. IMPRESSION: No acute osseous findings. Multiple focus osseous lucencies. Appearance could relate to metabolic bone disease and/or myeloma. Correlate clinically. Electronically signed by: Crys Hester M.D. 11/08/24 00:12 AM Abdomen/Pelvis CT 11/07/24 22:55 Exam(s): CT ABDOMEN + PELVIS Without Contrast EXAM: CT Abdomen and Pelvis Without Intravenous Contrast CLINICAL HISTORY: Reason for exam: trauma. TECHNIQUE: Axial computed tomography images of the abdomen and pelvis without intravenous contrast. CTDI is 38.64 mGy and DLP is 546.36 mGy-cm. Automated exposure control was utilized for the study. A dose lowering technique was utilized adhering to the principles of ALARA. COMPARISON: No relevant prior studies available. FINDINGS: Lung bases: Reported separately. ABDOMEN: Liver: Unremarkable. Gallbladder and bile ducts: Cholecystectomy. No ductal dilation. Pancreas: Unremarkable. No ductal dilation. Spleen: Calcified splenic granulomata. Adrenals: Unremarkable. No mass. Kidneys and ureters: Unremarkable. No hydronephrosis or radiopaque stones. Stomach and bowel: No bowel obstruction. Colonic wall thickening. PELVIS: Appendix: Appendix not visualized. Bladder: Unremarkable urinary bladder. No stones. Reproductive: Hysterectomy. ABDOMEN and PELVIS: Intraperitoneal space: Trace ascites and mesenteric edema. No free air. Bones/joints: Osteopenia. Multiple focal osseous lucencies. No acute fracture. No dislocation. Soft tissues: Anasarca. Vasculature: Atherosclerotic vascular disease. No aortic aneurysm. Lymph nodes: Unremarkable. No enlarged lymph nodes. IMPRESSION: 1. Multiple focal osseous lucencies. Appearance could be related to metabolic bone disease and/or myeloma. Correlate clinically. 2. Colonic wall thickening. Appearance raises concern for colitis. Correlate clinically. 3. No acute traumatic findings. Electronically signed by: Crys Hester M.D. 11/08/24 00:[address] 11/07/24 22:55 Exam(s): CT C SPINE EXAM: CT Cervical Spine Without Intravenous Contrast CLINICAL HISTORY: Reason for exam: Trauma. TECHNIQUE: Axial computed tomography images of the cervical [place] [address] mGy and DLP is 546.36 mGy-cm. Automated exposure control was utilized for the study. A dose lowering technique was utilized adhering to the principles of ALARA. COMPARISON: No relevant prior studies available. FINDINGS: Vertebrae: Osteopenia. Scattered focal lucencies throughout the skeleton. No acute fracture or traumatic subluxation. Discs/spinal canal/neural foramina: Mild multilevel disc degeneration. Disc-osteophyte complexes producing multilevel spinal canal stenosis, moderate at C4-C5. Soft tissues: Unremarkable. IMPRESSION: 1. No acute fracture or traumatic subluxation. 2. Osteopenia. Scattered focal lucencies throughout the skeleton. Overall appearance could represent metabolic bone disease or myeloma. Correlate clinically. Electronically signed by: Crys Hester M.D. 11/08/24 00:[address] 11/07/24 22:55 Exam(s): CT CHEST Without Contrast EXAM: CT Chest Without Intravenous Contrast CLINICAL HISTORY: Reason for exam: trauma. TECHNIQUE: Axial computed tomography images of the chest without intravenous contrast. CTDI is 38.64 mGy and DLP is 546.36 mGy-cm. Automated exposure control was utilized for the study. A dose lowering technique was utilized adhering to the principles of ALARA. COMPARISON: 06/04/2024 FINDINGS: Lungs: Bibasilar airspace disease, [id number]-yfjx-right. Interstitial prominence bilaterally suggesting pulmonary edema. No pulmonary contusion. No mass. Centrilobular emphysema. Pleural space: Small bilateral pleural effusions, jfqy-[id number]-lkzr- right. Left pleural effusion is partially loculated along the pulmonary fissure. Heart: Mitral annular calcification. Cardiomegaly and coronary artery atherosclerosis. No pericardial effusion. Bones/joints: Osteopenia. Scattered focal osseous lucencies. Prior sternotomy. No acute fracture or dislocation. Soft tissues: Unremarkable. Vasculature: Calcified thoracic aorta without aneurysm. Lymph nodes: No enlarged lymph nodes. IMPRESSION: 1. Small bilateral pleural effusions, [id number]-right. Left pleural effusion is partially loculated along the pulmonary fissure. 2. Bibasilar airspace disease, [id number]-right. Atelectasis is favored. 3. Interstitial prominence bilaterally suggesting pulmonary edema. 4. Scattered focal osseous lucencies. Overall appearance could be related to metabolic bone disease and/or myeloma. Correlate clinically. Electronically signed by: Crys Hester M.D. 11/08/24 00:[address] 11/07/24 22:55 Exam(s): CT HEAD Without Contrast EXAM: CT Head Without Intravenous Contrast CLINICAL HISTORY: Reason for exam: Trauma. TECHNIQUE: Axial computed tomography images of the head/brain without intravenous contrast. CTDI is 38.64 mGy and DLP is 546.36 mGy-cm. Automated exposure control was utilized for the study. A dose lowering technique was utilized adhering to the principles of ALARA. COMPARISON: No relevant prior studies available. FINDINGS: Brain: Generalized parenchymal volume loss. Periventricular and deep cerebral white matter hypoattenuation suggesting chronic small vessel ischemic change. Chronic lacunar infarcts bilateral basal ganglia. [place]- white matter differentiation maintained. No hemorrhage, mass effect, parenchymal edema, or midline shift. Ventricles: No hydrocephalus. Bones/joints: No acute fracture. Soft tissues: Unremarkable. Vasculature: Intracranial atherosclerosis. Sinuses: Unremarkable as visualized. Mastoid air cells: No significant mastoid effusion. IMPRESSION: No acute intracranial process. Electronically signed by: Crys Hester M.D. 11/08/24 00:08 AM Code Status & VTE Plan VTE Prophylaxis Plan VTE Prophylaxis will be ordered: Yes PG Care Time/CCT Total # of Minutes Spent Total Time Spent with Patient: Total time spent is greater than 50% in coordination of care (as documented) at patient's floor/unit and/or counseling patient: Coding Level of Care Code 23435 INT INP/OBS CARE 3/75MIN Diagnoses Failure to thrive in adult R62.7 BRITTNEY (acute kidney injury) N17.9 HFrEF (heart failure with reduced ejection fraction) I50.20 Bone lesion M89.9 Pleural effusion J90 Elevated troponin I level R79.89 Pulmonary emphysema, unspecified emphysema type J43.9 COPD type: emphysema Emphysema type: unspecified (7) COPD (chronic obstructive pulmonary disease) COPD type: emphysema Emphysema type: unspecified Qualified Code(s): J43.9 - Emphysema, unspecified
[2024-11-08] MEDS ORDERED: ONDANSETRON INJ 2 MG/ML 2 ML VIAL IV PRN (03:10)
[2024-11-08] MEDS: LACTATED RINGER'S 1,000 ML IV SCH (03:43)
[2024-11-08] MEDS: CALCIUM GLUCONATE 1,000 MG/60 ML BAG IV SCH (03:43)
[2024-11-08 03:50] LABS: Hematocrit (blood only) 39.3 % (37.0-47.0); Hemoglobin 12.1 g/dl (12.0-16.0); Mean Corpuscular Hemoglobin 23.5 pg (25.0-34.0); Mean Corpuscular Volume 76.3 fL (80.0-100.0); Platelet Count 102 K/uL (130-400); RDW Standard Deviation 55.7 fL (36.4-46.3); Red Blood Count 5.15 M/uL (4.20-5.40); White Blood Count 14.12 K/ul (4.8-10.8)
[2024-11-08 04:02] LABS: Iron 15.0 mcg/dl (35-150); Magnesium 1.3 mg/dl (1.7-2.4); Total Iron Binding Cap Calc 371.0 mcg/dl (250-450); Transferrin 265.0 mg/dl (200-360); Transferrin (FE) Percent Satur 4.0 % (15-50)
[2024-11-08 04:05] LABS: Alanine Aminotransferase 87.0 U/L (7-52); Alkaline Phosphatase 267.0 U/L (34-104); Anion Gap 12.0 (3-11); Bilirubin,Total 1.9 mg/dl (0.2-1.0); Blood Urea Nitrogen 49.0 mg/dl (6-23); Calcium 8.1 mg/dl (8.6-10.3); Carbon Dioxide 23.0 mmol/L (21-32); Chloride 100.0 mmol/L (98-107); Creatinine Clr Calc Pharmacy 14.5 ml/min; Glucose 87.0 mg/dl (70-99(Fasting)); Potassium 5.2 mmol/L (3.5-5.1); Sodium 135.0 mmol/L (136-145); Total Protein 5.9 gm/dl (6.0-8.3)
[2024-11-08 04:17] LABS: Thyroid Stimulating Hormone 6.976 uIu/ml (0.300-4.500)
[2024-11-08] MEDS: ALBUMIN 5% 250 ML IV ONE (04:26)
[2024-11-08] MEDS: LEVOTHYROXINE SODIUM 150 MCG TABLET PO SCH (05:58)
[2024-11-08] MEDS: AMIODARONE 200 MG TAB PO SCH (07:39)
[2024-11-08] MEDS: levETIRAcetam 500 MG TAB PO SCH (07:40)
[2024-11-08] MEDS: MONTELUKAST SODIUM 10 MG TABLET PO SCH (07:40)
[2024-11-08] MEDS: METOPROLOL SUCC 25MG EXT REL TAB PO SCH (07:40)
[2024-11-08] MEDS: PHYTONADIONE 5 MG TAB PO SCH (07:40)
[2024-11-08] MEDS: FLUTICASONE FUROATE 200MCG 14 PUFFS/INHALER INH SCH (07:41)
[2024-11-08] MEDS: UMECLIDINIUM/VILANTEROL 62.5/25MCG 7 PUFFS/INHALER INH SCH (07:42)
[2024-11-08] MEDS: NYSTATIN SUSP 500,000 U/5 ML UDC PO SCH (07:43)
--- NOTE | 2024-11-08 08:44 | Electrocardiogram Report ---
Test Reason : Blood Pressure : */* mmHG Vent. Rate : 92 BPM Atrial Rate : 92 BPM P-R Int : 212 ms QRS Dur : 110 ms QT Int : 404 ms P-R-T Axes : 67 91 47 degrees QTcB Int : 499 ms Sinus rhythm with 1st degree A-V block Possible Left atrial enlargement Rightward axis Minimal voltage criteria for LVH, may be normal variant Prolonged QT Abnormal ECG Confirmed by Barrington Dalton ([id number]) on 11/08/2024 8:44:07 AM Referred By: REFERRED SELF Confirmed By: Barrington Dalton
[2024-11-08] MEDS ORDERED: NON-FORMULARY MEDICATION (Fluticasone-Umeclidin-Vilanter [Trelegy Ellipta] 200-62.5-25 mcg INH SCH (09:00)
[2024-11-08] MEDS: MAGNESIUM SULFATE / D5W 1 GM/100 ML BAG IV SCH (09:06)
--- NOTE | 2024-11-08 10:13 | Hospitalist Progress Note ---
Date of Service November 08, 2024 Assessment & Plan (1) Bone lesion: (2) Failure to thrive in adult: (3) BRITTNEY (acute kidney injury): (4) HFrEF (heart failure with reduced ejection fraction): Plan Plan This patient is a 64-year-old female with a history of paroxysmal A-fib/flutter, CAD, bioprosthetic AVR, porcine MVR, PSVT, pulmonary HTN, COPD with chronic hypoxic respiratory failure w/ baseline 3 LNC O2, TIA/CVA x 2, HTN, HLD, HFpEF, myoclonus, underweight, severe osteoporosis, depression/anxiety, chronic opioid use, GERD, and hypothyroidism presenting with failure to thrive and an unwitnessed fall. She has had two recent hospitalizations 06/04-06/07 and 08/17-08/24 indicating a decline over the last several months. A more rapid decline over the last several days has occurred. Patient is being worked up for failure to thrive and new finding of lytic skeletal lesions in the setting of BRITTNEY and HFrEF. #Failure to thrive in the adult - patient reports poor appetite, decreased oral intake for the last month. - Mg decreased and PO4 WNL -Will replenish Mg -Administered 1 dose of Vitamin K 5mg due to elevated INR, likely dietary deficiency -Encourage oral intake. Regular diet ordered -PT/OT evaluations appreciated #Skeletal lesions - concerning for multiple myeloma vs. metabolic bone disease vs malignancy. Patient also with BRITTNEY as well as likely anemia (microcytosis, expect H/H to drop after hydration) -Patient with hypocalcemia (rather than expected hypercalcemia seen in MM) -Check SPEP and [place]/Lambda Light Chains in the urine -Check peripheral blood smear tomorrow am #BRITTNEY- BUN=49 Cr=2.92 on admission which is increased from last values of 29.7 and 1.44, respectively, on 09/26/24. Likely multifactorial - secondary to decreased oral intake as well as medication effects. Patient on Lisinopril and Spironolactone as an outpatient. She reports she has continued to take her medications. She has mildly elevated potassium at 5.5. EKG with no acute ischemic changes -eGFR 18.8 -Check urine Na and Cr for FeNA calculation -Avoid nephrotoxic agents -Renal dosing where needed -S/p Albumin 5% x 250mL -Repeat chemistry in AM #HFrEF/Pleural effusions - Echocardiogram 08/17/24 with normal LV function, mild LVH, moderate Aortic regurgitation and bioprosthetic mitral valve. Patient appears to be overloaded with edema, JVD, rales, marked elevation of BNP. -Gave Albumin -Fluids held due to physical examination demonstrating fluid overload. -Continue Metoprolol -Holding Spironolactone and Lisinopril for now -Repeat echo ordered #Elevated Troponin: -EGK with no acute ischemic changes, significant for a 1st degree block, rightward axis, possible left atrial enlargement. - Troponin 167--> 214--> 220 -Repeat echo ordered #Elevated INR: #Elevated Liver Enzymes: -INR, PT, aPTT elevated -AST and ALT elevated -Protein and albumin decreased #Hypothyroidism -TSH elevated at 6.976 -Continue Synthroid #COPD - Some SOB, No cough or wheeze at present -No hx of hemoptysis -Continue Trelegy or formulary equivalent -DuoNebs PRN #Paroxysmal atrial fibrillation -Continue Amiodarone 200mg po daily -Restart Eliquis 2.5mg BID-was held due to presentation after fall, CT head negative #GERD: -Continue Protonix Admission and Anticipated Discharge Date Admission Date: November 08, 2024 Supervising Physician Co-Signing Physician Notes ATTESTATION I also saw the patient and confirmed velasquez portions of the history and exam. I agree with the impression and plan in the medical student and resident documentation, and as summarized below. She is tired this morning after a late night admission. She has no new complaints this morning. Piecing together history from her and primary care and cardiology notes, there seems to be a a several week history of worsening appetite and increasing weakness. EXAM 114/64, 78, 16 Appears tired CV regular Lungs clear but decreased volume DATA Labs Hgb 12.1, WBC 14.12, plt 102 INR 1.7 sodium 135, potassium 5.2 BUN 49, Cr. 2.74 AST 171, ALT 87, Alk Phos [address] no acute findings Chest CT with small effusions, atelectasis, and scattered focal osseous lucencies. IMPRESSION & PLAN Failure to thrive in adult Elevated LFTs/INR BRITTNEY (acute kidney injury) HFrEF (heart failure with reduced ejection fraction Bone lesions Pleural effusion Elevated troponin I level COPD (chronic obstructive pulmonary disease The cause of her progressive decline is not clear Will review records from recent OSH admissions to avoid duplication of testing Myeloma labs pending Will resume Eliquis but at low dose given her current renal function Additional per resident documentation Subjective 64-year-old female with a history of paroxysmal A-fib/flutter, CAD, bioprosthetic AVR, porcine MVR, PSVT, pulmonary HTN, COPD with chronic hypoxic respiratory failure w/ baseline 3L NC O2, TIA/CVA x 2, HTN, HLD, HFpEF, myoclonus, underweight, severe osteoporosis, depression/anxiety, chronic opioid use, GERD, and hypothyroidism presenting with failure to thrive and an unwitnessed fall. Patient reports several weeks of poor appetite and decreased oral intake. She states she hasn't eaten more than a few bites a day due to no appetite and generalized weakness. Up until several days ago, she was able to complete her ADL's with no issues consisting of climbing stairs, bathing, cooking. Patient sustained an unwitnessed fall at home and was unable to get up due to her weakness. Partner found her a couple hours later. States she had an episode of bowel incontinence during the fall. States she did not lose consciousness or hit her head. Denies lateral tongue biting. She states she had a normal mammogram and normal colonoscopy within the last year. She continues to have weight loss. Denies bone pain, hematochezia. Review of Systems 2 Review of Systems: Constitutional: Weight loss. She is unable to quantify severity/duration. Denies fever, chills, night sweats HEENT: Denies head pain, headaches. Denies eye pain, vision loss/changes, blurry vision, double vision. Denies ear pain, and hearing loss. Denies sore throat or sore neck or sinus pain. Respiratory: SOB at baseline, Denies cough, sputum production, pleuritic chest pain, wheezing CV: Edema at baseline. Denies chest pain, heart palpitations, tachycardia, bradycardia, GI: States abdominal pain and constipation. Denies, diarrhea, nausea, vomiting, hematochezia : Denies dysuria, increased urinary frequency, hematuria MSK: Denies joint pain, muscle pain, decreased ROM, Neuro: Denies altered mental status, slurred speech, numbness or tingling Physical Exam Physical Exam: General: Very thin and tired appearing HEENT: Normocephalic, atraumatic, moist mucous membranes, neck is supple, trachea midline, no lymphadenopathy or thyromegaly appreciated Respiratory: Decreased breath sounds bilaterally without wheezes, rales, or rhonchi Cardiovascular: Heart has RRR without murmurs, rubs, or gallops. Abnormal valve sounds s/p valve replacement. JVD present.. Bilateral lower extremity pitting edema. 1+ distal pulse palpated in all four extremities Abdomen: Abdomen is diffusely tender. No hepatosplenomegaly appreciated. Decreased bowel sounds. Neurologic: Cranial nerves II through XII are grossly intact. No focal neurological deficits Psychiatric: Appropriate mood and affect. Results & Data Results & Data Vital Signs (Past 12 Hours) Vital Signs Temp Pulse Pulse Resp BP BP Pulse Ox 11/08/24 06:58 36.7 C 81 16 107/64 94 11/08/24 04:25 36.6 C 90 16 155/69 H 93 11/08/24 03:35 11/08/24 03:00 36.7 C 87 16 147/74 H 94 11/08/24 02:00 85 22 126/104 H 94 11/08/24 01:00 86 20 156/64 H 94 11/08/24 00:00 85 22 152/70 H 93 11/07/24 23:00 86 20 139/86 92 11/07/24 22:23 90 11/07/24 22:00 91 H 18 126/77 93 11/07/24 21:56 36.4 C L 90 22 126/67 92 O2 Del Method O2 Flow Rate 11/08/24 06:58 Nasal Cannula 4 11/08/24 04:25 Nasal Cannula 4 11/08/24 03:35 Nasal Cannula 4 11/08/24 03:00 Nasal Cannula 4 11/08/24 02:00 Nasal Cannula 4 11/08/24 01:00 Nasal Cannula 4 11/08/24 00:00 Nasal Cannula 4 11/07/24 23:00 Nasal Cannula 4 11/07/24 22:23 11/07/24 22:00 Nasal Cannula 2 11/07/24 21:56 Nasal Cannula 2
[2024-11-08 12:56] LABS: Appearance Urine Clear (Clear); Bacteria Urine Automated None Seen (None Seen); Cast Urine Automated 0-2 /lpf (0-2); Epithelial Cell Urine Auto 0-2 /hpf (0-2); Glucose Urine UA Negative (Negative); RBC Urine Automated 0-2 /hpf (0-2)
--- NOTE | 2024-11-08 16:39 | XCELERA ---
[id number]
[2024-11-08] MEDS: APIXABAN 2.5 MG TAB PO SCH (21:11)
[2024-11-08] MEDS: CLOPIDOGREL BISULFATE 75 MG TAB PO SCH (21:11)
[2024-11-08] MEDS: MIRTAZAPINE TAB 15 MG TAB PO SCH (21:12)
[2024-11-09 06:11] LABS: Alanine Aminotransferase 161.0 U/L (7-52); Alkaline Phosphatase 234.0 U/L (34-104); Anion Gap 10.0 (3-11); Bilirubin,Total 2.6 mg/dl (0.2-1.0); Blood Urea Nitrogen 51.0 mg/dl (6-23); Calcium 8.2 mg/dl (8.6-10.3); Carbon Dioxide 23.0 mmol/L (21-32); Chloride 100.0 mmol/L (98-107); Creatinine Clr Calc Pharmacy 15.1 ml/min; Glucose 83.0 mg/dl (70-99(Fasting)); Magnesium 1.8 mg/dl (1.7-2.4); Potassium 5.5 mmol/L (3.5-5.1); Sodium 133.0 mmol/L (136-145); Total Protein 5.6 gm/dl (6.0-8.3)
[2024-11-09 06:38] LABS: Hematocrit (blood only) 36.4 % (37.0-47.0); Hemoglobin 11.2 g/dl (12.0-16.0); Mean Corpuscular Hemoglobin 23.6 pg (25.0-34.0); Mean Corpuscular Volume 76.8 fL (80.0-100.0); Platelet Count 78 K/uL (130-400); RDW Standard Deviation 56.8 fL (36.4-46.3); Red Blood Count 4.74 M/uL (4.20-5.40); White Blood Count 15.37 K/ul (4.8-10.8)
--- NOTE | 2024-11-09 07:12 | Hospitalist Progress Note ---
Date of Service November 09, 2024 Assessment & Plan (1) Bone lesion: (2) Failure to thrive in adult: (3) BRITTNEY (acute kidney injury): (4) HFrEF (heart failure with reduced ejection fraction): Plan Plan This patient is a 64-year-old female with a history of paroxysmal A-fib/flutter, CAD, bioprosthetic AVR, porcine MVR, PSVT, pulmonary HTN, COPD with chronic hypoxic respiratory failure w/ baseline 3 LNC O2, TIA/CVA x 2, HTN, HLD, HFpEF, myoclonus, underweight, severe osteoporosis, depression/anxiety, chronic opioid use, GERD, and hypothyroidism presenting with failure to thrive and an unwitnessed fall. She has had two recent hospitalizations 06/04-06/07 and 08/17-08/24 indicating a decline over the last several months. A more rapid decline over the last several days has occurred. Patient is being worked up for failure to thrive and new finding of osseous lucencies in the setting of BRITTNEY and HFrEF. #Failure to thrive in the adult - patient reports poor appetite, decreased oral intake for the last month. - Mg decreased and PO4 WNL -S/p 2g Mg on 11/07, given another 1gm IV mg today -Administered 1 dose of Vitamin K 5mg due to elevated INR on 11/07 -Encourage oral intake. Regular diet ordered -PT/OT evaluations appreciated #Skeletal lesions - concerning for multiple myeloma vs. metabolic bone disease vs malignancy. Patient also with BRITTNEY as well as likely anemia (microcytosis, expect H/H to drop after hydration) -Patient with hypocalcemia (rather than expected hypercalcemia seen in MM) -Pending SPEP and [place]/Lambda Light Chains in the urine -Check peripheral blood smear tomorrow am #BRITTNEY- BUN=49 Cr=2.7 on admission which is increased from last values of 29.7 and 1.44, respectively, on 09/26/24. Likely multifactorial - secondary to decreased oral intake as well as medication effects. Patient on Lisinopril and Spironolactone as an outpatient. She reports she has continued to take her medications. She has mildly elevated potassium at 5.5. EKG with no acute ischemic changes - Order nephrology consult, pending recommendations - Cr down trending at 2.42, BUN at 51 -eGFR 21.9 - FENa calculation for 11/08 was 0.6% indicating prerenal cause for BRITTNEY- likely renal hypoperfusion -Avoid nephrotoxic agents -Renal dosing where needed - Consider albumin vs lasix if diuresis is needed -Repeat chemistry in AM #HFrEF/Pleural effusions - Echocardiogram 08/17/24 with normal LV function, mild LVH, moderate Aortic regurgitation and bioprosthetic mitral valve. Patient appears to be overloaded with edema, JVD, rales, marked elevation of BNP. -Gave Albumin prn -Fluids held due to physical examination demonstrating fluid overload. -Continue Metoprolol -Holding Spironolactone and Lisinopril for now #Elevated Troponin: -EGK with no acute ischemic changes, significant for a 1st degree block, rightward axis, possible left atrial enlargement. - Troponin 167--> 214--> 220 -Repeat echo, no significant changes from Echo in 08/2024: Moderate LVH, Mod-severe Aortic Regurg and Tricuspid Regurg, Mild Mitral Stenosis. Increased right ventricular systolic pressure>60mmHg. Noted moderate Right pleural effusion #Elevated INR: #Elevated Liver Enzymes: LTFs increased from labs taken at admission. Portal HTN caused by right sided HF vs liver pathology. -INR, PT, aPTT elevated -AST and ALT increased to 301 and 161 respectively -Total bilirubin increased to 2.6 -Alk Phos slight decrease to 161 -Protein and albumin decreased -Ordered liver US -Consider hepatitis panel #Hypothyroidism TSH elevated at 6.976 at admission. -Continue Synthroid -Follow up in outpatient #COPD - Some SOB, No cough or wheeze at present -No hx of hemoptysis -Continue Trelegy or formulary equivalent -DuoNebs PRN #Paroxysmal atrial fibrillation -Continue Amiodarone 200mg po daily -Restart Eliquis 2.5mg BID-was held due to presentation after fall, CT head negative #GERD: -Continue Protonix Admission and Anticipated Discharge Date Admission Date: November 08, 2024 Supervising Physician Co-Signing Physician Notes ATTESTATION I also saw the patient and confirmed velasquez portions of the history and exam. I also discussed the case with Dr. Casas. I agree with the impression and plan in the resident documentation, and as summarized below. A little more aware today, but in general feels the same as she has for the last several weeks in terms of generalized malaise, weakness, and anorexia. EXAM 124/68, 82, 16 Appears tired CV regular, systolic murmur Lungs clear but decreased volume (+) LE edema DATA Labs Hgb 11.2, WBC 15.3, plt 78 smear pending sodium 133, potassium 5.5 BUN 51, Cr. 2.42 AST 301, ALT 161, Alk Phos 234, biliruin 2.[address] no acute findings Chest CT with small effusions, atelectasis, and scattered focal osseous lucencies. Liver US without lesions; slight echogenic. IMPRESSION & PLAN Failure to thrive in adult Elevated LFTs/INR BRITTNEY (acute kidney injury) HFrEF (heart failure with reduced ejection fraction) Valvular heart disease Bone lesions Pleural effusion Elevated troponin I level COPD (chronic obstructive pulmonary disease The cause of her progressive decline is not clear, although suspect related to right sided failure and subsequent hepatic congestion Discussed with nephrology IVF stopped but will hold on diuresis today Single dose of [facility] in AM Skeletal lesions noted; atypical presentation for MM, no obvious malignancy on imaging Peripheral smear pending SPEP/UPEP/Serum free light chains pending Unless urgent need develops over weekend, will involve cardiology on Monday when her cardiology team is [employer] Additional per resident documentation Subjective No acute events overnight. This morning, pt remains sleepy and requires occasional cueing to remain alert to answer questions, but improved since yesterday. Pt maintains that primarily she feels tired. She denies pain anywhere is her body. No nausea, heart burn, abdominal pain, recent episodes of diarrhea. She continues to report no appetite or interest in eating that this time. Denies CP, SOB, headaache, dizziness, new arthralgias or myalgias Review of Systems Review of Systems: As per HPI Physical Exam Physical Exam: General: Cachectic and tired appearing HEENT: Normocephalic, atraumatic, moist mucous membranes, neck is supple, trachea midline, no lymphadenopathy or thyromegaly appreciated Respiratory: Decreased breath sounds bilaterally without wheezes, rales, or rhonchi Cardiovascular: Heart has RRR without murmurs, rubs, or gallops. No JVD noted today.. Bilateral lower extremity pitting edema. 1+ distal pulse palpated in all four extremities Abdomen: Abdomen is non distended and nontender. No hepatosplenomegaly appreciated. Normoactive bowel sounds. Neurologic: No focal neurological deficits Psychiatric: Appropriate mood and affect. Results & Data Results & Data Vital Signs (Past 12 Hours) Vital Signs Temp Pulse Resp BP Pulse Ox O2 Del Method O2 Flow Rate 11/08/24 21:57 36.6 C 85 16 101/64 91 Nasal Cannula 4 11/08/24 21:11 Nasal Cannula 4
[2024-11-09] MEDS: MAGNESIUM SULFATE / D5W 1 GM/100 ML BAG IV ONE (08:11)
--- NOTE | 2024-11-09 11:11 | Nephrology Consultation ---
Date of Consultation November 09, 2024 Assessment & Plan (1) BRITTNEY (acute kidney injury): Non-oliguric. Creatinine downtrending with positive fluid balance. CT does not demonstrate obstruction. Urine microscopy is acellular. Electrolytes acceptable. 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 Clinical presentation consistent with prerenal BRITTNEY with evidence of acute on chronic CRS. Findings of predominately right heart failure. Dapagliflozin, lisinopril, and spironolactone held. Medications are appropriate for kidney function. Avoid significantly positive fluid balance. IVF stopped. Diuretics have also been held. Document strict I/O's. Repeat metabolic profile tomorrow AM. Baseline creatinine ~1.4 mg/dL. Follow up SPEP/IF pending. Findings are not consistent with IDD or myeloma. Hyponatremia attributed to kidney dysfunction and poor oral solute intake. Mild, chronic. Hyperkalemia mild associated with BRITTNEY and RAASi. Hold spironolactone and lisinopril. Low K+ diet. Single dose of Lokelma provided. (2) Heart failure with improved ejection fraction (HFimpEF): Concerning findings of valvular heart disease complicated by pulmonary hypertension and right heart failure. Limited records regarding aortic valve repair available at this time. Cardiology consultation to assist with management encouraged. (3) Cor pulmonale: (4) Bone lesion: Not hypercalcemic. Concerning history for potential underlying malignancy and failure to thrive. No obvious malignancy noted on CT chest abdomen and pelvis. No recent screening for breast cancer. SPEP/IF pending but atypical presentation for MM. (5) Failure to thrive in adult: History of Present Illness Reason for Consultation: BRITTNEY Requesting Physician: Haider Vargas DO Attending Physician: Haider Vargas DO History of Present Illness Jennifer Morrison is a 64 year-old female with paroxysmal A-fib/flutter, CAD, aortic valve repair 2005 with moderate to severe aortic regurgitation, porcine MVR, moderate to severe TR, right heart failure, pulmonary HTN, COPD with chronic hypoxic respiratory failure on 2 LNC O2, TIA/CVA x 2, HTN, HLD, HFimpEF, moderate concentric LVH, osteoporosis, MASOUD/MDD, chronic opioid use, GERD, and hypothyroidism who presented to the ER at [facility] yesterday with generalized weakness s/p fall at home. She has had two recent hospitalizations (June and July both with acute on chronic CHF). History is notable for a progressive overall decline in health as well as worsening frailty over the course of the past 6-7 months. Jennifer is ambulating independently or with assistance of a walker at home. She reports generally poor activity tolerance limited predominately be weakness. Jennifer states that she does not often leave the home but she is able to walk around the house independently. She describes stable dyspnea with exertion but denies significant orthopnea or any PND. She denies chest pains or palpitations. She denies lightheadedness, dizziness, syncope or presyncope. This has included poor appetite, nausea/vomiting, weight loss, myoclonus, generalized weakness, and significant reduced activity tolerance. A more rapid decline was noted for several days prior to admission. Jennifer was admitted for failure to thrive with CT demonstrating multiple small osseous lucencies (diffusely scattered throughout the chest, thoracic and lumbar spine, as well as pelvis) as well as BRITTNEY and acute on chronic HFimpEF. I discussed the patient with Dr. Vargas. TTE demonstrating significant valvular heart disease, including moderate to severe aortic regurgitation and moderate to severe tricuspid regurgitation. RVSP >60. Baseline serum creatinine is ~1.4 mg/dL. In June and July, urine analysis was bland with acellular microscopy. Kidneys are relatively normal on imaging. Notable calcific vascular disease is appreciated on CT involving the abdominal aorta and renal arteries. SPEP in March was unremarkable with a faint IgG lambda band on IF. Jennifer has not had significant anemia or hypercalcemia. She was admitted to [facility] with a serum creatinine of 2.92 mg/dL which has improved to 2.42 mg/dL with IV hydration. Metabolic profile notable for mild hyponatremia (133 mmol/L) and hyperkalemia (5.5 mmol/L). Dapagliflozin (started August 2024), lisinopril, and spironolactone have been held. Allergies Allergy/AdvReac Type Severity Reaction Status Date / Time aspirin Allergy Intermediate Hives Verified 09/13/24 09:50 hydrochlorothiazide Allergy Intermediate RASH/"Sick Verified 09/13/24 09:50 in stomach" trazodone AdvReac Severe Vomiting Verified 09/13/24 09:50 furosemide AdvReac Intermediate ELEVATED Verified 09/13/24 09:50 CREATINE tramadol AdvReac Mild Nausea Verified 09/13/24 09:50 Home Medications Medication Instructions Recorded Confirmed Type ipratropium 0.5 mg-albuterol 3 mg 3 ml NEB QID PRN shortness of 02/07/23 11/07/24 History (2.5 mg base)/3 mL nebulization breath or wheezing soln nebulizer accessories #5 ea 02/13/23 11/07/24 Rx nebulizers #1 ea 02/13/23 11/07/24 Rx Wheeled Walker #1 ea 02/22/23 11/07/24 Rx sodium chloride 7 % for 4 ml NEB BIDR #240 mL 05/11/23 11/07/24 Rx nebulization cholecalciferol (vitamin D3) 50 4,000 unit PO QAM 90 days #180 tabs 08/18/23 11/07/24 Rx mcg (2,000 unit) tablet (Vitamin D3) spironolactone 25 mg tablet 25 mg PO DAILY #90 tabs 11/07/23 11/07/24 Rx atorvastatin 40 mg tablet 40 mg PO QPM #90 tabs 02/23/24 11/07/24 Rx Oxygen Home 02/26/24 11/07/24 History clopidogrel 75 mg tablet 75 mg PO QPM #90 tabs 02/28/24 11/07/24 Rx montelukast 10 mg tablet 10 mg PO QAM #90 tabs 02/29/24 11/07/24 Rx abaloparatide (Tymlos) 80 mcg (0.04 mL) subcut DAILY 03/04/24 11/07/24 Rx #1.56 mL pen needle, diabetic 32 gauge x #100 ea 03/05/24 11/07/24 Rx 5/32" (BD Aruna 2nd Gen Pen Needle) levetiracetam 500 mg tablet 500 mg PO BID 90 days #180 tabs 05/10/24 11/07/24 Rx (Keppra) pantoprazole 40 mg tablet,delayed 40 mg PO DAILY #90 tabs 05/28/24 11/07/24 Rx release amiodarone 200 mg tablet 200 mg PO QAM #90 tabs 06/10/24 11/07/24 Rx cyanocobalamin (vitamin B-12) 1,000 mcg PO QAM #90 tabs 06/10/24 11/07/24 Rx 1,000 mcg tablet fluticasone fur. 200 mcg-umeclid 1 inh inhalation DAILY #60 ea 06/10/24 11/07/24 Rx 62.5 mcg-vilant 25 mcg inhalat.powder (Trelegy Ellipta) folic acid 1 mg tablet 1 mg PO QAM #90 tabs 06/10/24 11/07/24 Rx metoprolol succinate 25 mg 12.5 mg (1/2 x 25 mg) PO DAILY #45 06/10/24 11/07/24 Rx tablet,extended release 24 hr tabs mirtazapine 15 mg tablet 15 mg PO HS #90 tabs 06/10/24 11/07/24 Rx levothyroxine 150 mcg tablet 150 mcg PO DAILY #90 tabs 08/12/24 11/07/24 Rx lisinopril 2.5 mg tablet 2.5 mg PO QAM #90 tabs 08/22/24 11/07/24 Rx magnesium oxide 400 mg (241.3 mg 400 mg PO BID #60 tabs 08/23/24 11/07/24 Rx magnesium) tablet dapagliflozin propanediol 10 mg 10 mg PO DAILY #30 tabs 09/13/24 11/07/24 Rx tablet (Farxiga) oxycodone 5 mg tablet 5 mg PO QID PRN pain #120 tabs 10/30/24 11/07/24 Rx Patient History Medical History (Updated 11/08/24 @ 01:39 by Becky Sharp DO) Atrial flutter Hypoglycemia Acute hyperkalemia Sepsis Hyperkalemia Flu Sepsis Elevated troponin I level Acute respiratory failure with hypoxia and hypercapnia Positive colorectal cancer screening using Cologuard test On anticoagulant therapy plavix daily---MVR/AVR--follows with Krystian Valles Chronic combined systolic (congestive) and diastolic (congestive) heart failure Bilateral pleural effusion hx Mitral valve disease s/p MVR (2005) History of aortic valve disease s/p AVR (2005) Chronic back pain + neck Arthritis Hyperlipidemia Ischemic stroke Remote hx per records (?11/2018) Emphysema/COPD inhaler daily/prn, nebulizer prn Fibromyalgia Peripheral neuropathy GERD (gastroesophageal reflux disease) Depression Anxiety Transient ischemic attack (TIA) 2005, 2019--no deficits, followed with Dr. Plummer (cleared) follows with PCP and cardiology Hyperlipidemia On home oxygen therapy 2L O2 HS + PRN Surgical History History of esophagogastroduodenoscopy (EGD) History of colonoscopy History of heart valve replacement AVR (2005) History of lung biopsy History of bronchoscopy H/O: hysterectomy Family History Mother Slow to wake up after anesthesia Sister Family history of diabetes mellitus Father Stroke Osteoarthritis Other Coronary heart disease Denies family history of Ovarian cancer Prostate cancer Breast cancer Colorectal cancer Social History Smoking Status: Former smoker Tobacco Type: Cigarettes Age Started Using Tobacco: 18; Age Quit Using Tobacco: 59; packs per day: 0.5; Second Hand Exposure: Yes (family smokes); Do You Dip or Chew Tobacco: No; Hx Alcohol Use: No Hx Substance Use: No Preferred Language: Ukrainian Communication Ability: Effective Hearing Ability: Normal Data Base Administrator Required: No Beliefs That Will Affect Care: None marital status: Current Living Situation: Significant Other Current Living Situation Comment: Sebastián current occupational status: unemployed and disabled How many Children do You have: 2 Feels Safe at Home: Yes Childhood Exposure to Second-Hand Smoke: Yes Diet: regular during the past year weight has: decreased > 10 lbs Dental Care, Regularly: No Physical Activity Frequency: 3-4 Times per Week Seatbelt Use: always Sunscreen Use: Yes Assistive Devices: Denture - Upper, Denture - Lower, Glasses, Oxygen - Continuous and Walker Review of Systems Review of Systems: All systems reviewed & are unremarkable except as noted in HPI & below Constitutional: + fatigue, + weakness and + anorexia; no fever and no chills Ear, Nose, Mouth, Throat: + dry mouth; no dysphagia Respiratory: + dyspnea on exertion; no cough Cardiovascular: + dyspnea on exertion and + edema; no ch est pain, no dyspnea at rest, no paroxysmal nocturnal dyspnea, no palpitations, no lightheadedness and no syncope Gastrointestinal: + bloating, + nausea and + vomiting; no abdominal pain, no constipation, no diarrhea/loose stools and no blood in stools Physical Exam Constitutional: + ill appearing and + frail appearing; n o acute distress Eyes: + anicteric sclerae ENMT: Mouth: no oral mucosal abnormality and oral mucous membranes not dry Neck: normal visual inspection and trachea midline Respiratory: normal respiratory effort Auscultation: lungs clear to auscultation bilaterally Cardiovascular: Rate/Rhythm: regular rate Heart Sounds: normal S1, normal S2 and + murmur Extremities: + edema Musculoskeletal: Extremities: + clubbing; no cyanosis and no petechiae Skin: no rashes and no jaundice Neurologic: Motor/Sensory: + fasciculations (myoclonus ); no tremor and no asterixis Psychiatric: Orientation: alert and oriented x 3 Results & Data Vital Signs (Past 12 Hours) Vital Signs Temp Pulse Resp BP Pulse Ox O2 Del Method O2 Flow Rate 11/09/24 08:57 36.3 C L 82 16 124/68 91 Nasal Cannula 3 11/09/24 07:15 Nasal Cannula 4 Laboratory Results Laboratory Results - last 24 hr 11/08/24 11/08/24 11/09/24 11:11 Unknown 05:25 WBC 15.37 H RBC 4.74 Hgb 11.2 L Hct 36.4 L MCV 76.8 L MCH 23.6 L MCHC 30.8 L RDW Std Deviation 56.8 H RDW Coeff of Claudette 20.7 H Plt Count 78 L Absolute Nucleated RBC 0.09 Nucleated RBC % (auto) 0.6 Platelet Estimate Decreased L Peripher Smr Path Cons Pending Sodium 133 L Potassium 5.5 H Chloride 100 Carbon Dioxide 23 Anion Gap 10 BUN 51 H Creatinine 2.42 H D Est Cr Clr Drug Dosing 15.1 eGFR 21.92 BUN/Creatinine Ratio 21.1 H Glucose 83 Calcium 8.2 L Phosphorus 4.4 Magnesium 1.8 Total Bilirubin 2.6 H Direct Bilirubin 1.6 H AST 301 H ALT 161 H Alkaline Phosphatase 234 H Troponin I High Sens 220.5 H* Total Protein 5.6 L Albumin 3.1 L Urine Color Dark Yellow Urine Appearance Clear Urine pH 5.5 Ur Specific Coburn 1.020 Urine Protein 1+ H Urine Glucose (UA) Negative Urine Ketones Trace H Urine Blood Negative Urine Nitrite Negative Urine Bilirubin 1+ H Urine Urobilinogen Negative Ur Leukocyte Esterase 1+ H Urine WBC (Auto) 6-10 H Urine RBC (Auto) 0-2 U Hyaline Cast (Auto) 0-2 U Epithel Cells (Auto) 0-2 Urine Bacteria (Auto) None Seen Ur Random Creatinine 133.5 Ur Random Sodium 37 U Free Gardi Light Ch Pending U Free Lambda Light Ch Pending U Free Gardi/Lambda Pending Urine Comment Diagnostic Findings CT Abdomen and Pelvis Without Intravenous Contrast COMPARISON: No relevant prior studies available. FINDINGS: Lung bases: Reported separately. ABDOMEN: Liver: Unremarkable. Gallbladder and bile ducts: Cholecystectomy. No ductal dilation. Pancreas: Unremarkable. No ductal dilation. Spleen: Calcified splenic granulomata. Adrenals: Unremarkable. No mass. Kidneys and ureters: Unremarkable. No hydronephrosis or radiopaque stones. Stomach and bowel: No bowel obstruction. Colonic wall thickening. PELVIS: Appendix: Appendix not visualized. Bladder: Unremarkable urinary bladder. No stones. Reproductive: Hysterectomy. ABDOMEN and PELVIS: Intraperitoneal space: Trace ascites and mesenteric edema. No free air. Bones/joints: Osteopenia. Multiple focal osseous lucencies. No acute fracture. No dislocation. Soft tissues: Anasarca. Vasculature: Atherosclerotic vascular disease. No aortic aneurysm. Lymph nodes: Unremarkable. No enlarged lymph nodes. IMPRESSION: 1. Multiple focal osseous lucencies. Appearance could be related to metabolic bone disease and/or myeloma. Correlate clinically. 2. Colonic wall thickening. Appearance raises concern for colitis. Correlate clinically. 3. No acute traumatic findings. PG Care Time/CCT Total # of Minutes Spent Total Time Spent with Patient: Total time spent is greater than 50% in coordination of care (as documented) at patient's floor/unit and/or counseling patient: Coding Level of Care Code 78273 IN/OBS CONSULT LVL 5,80M Diagnoses BRITTNEY (acute kidney injury) N17.9 Heart failure with improved ejection fraction (HFimpEF) I50.20 Cor pulmonale I27.81 Bone lesion M89.9 Failure to thrive in adult R62.7
--- NOTE | 2024-11-09 12:16 | Ultrasound Report ---
EXAM: US Abdomen Limited INDICATION: Elevated liver function tests. TECHNIQUE: Real-time ultrasound of the abdomen with image documentation. COMPARISON: No relevant prior studies available. FINDINGS: Liver: Slightly heterogeneous and echogenic. Normal size. Smooth contour. No ductal dilatation. Gallbladder and bile ducts: Cholecystectomy. No ductal dilation or stone noted. Kidneys: Right kidney: 9.5 cm long. Normal cortical thickness and echotexture. Multiple echogenic reflections typical of stones measuring up to 9 mm. No hydronephrosis. Other vasculature: Main portal vein patent. Free fluid: Trace perihepatic ascites. Pleural space: Right pleural effusion present. IMPRESSION: 1. Heterogeneous slightly echogenic liver is nonspecific. This appearance is typically related to steatosis but can be seen with other cellular disorders. 2. No biliary dilatation. 3. Nonobstructing right kidney stones. 4. Trace perihepatic ascites and right pleural effusion. ACT 112: Positive. There are findings on this exam that require communication between the performing entity and the patient following Patient Test Result Information Act ([place] ACT 112) guidelines. Electronically signed by Miriam Ratliff 11-09-2024 12:16 PM
[2024-11-09] MEDS: SODIUM ZIRCONIUM CYCLOSILICATE 10 GM PACKET PO ONE (14:23)
[2024-11-10 06:11] LABS: Hematocrit (blood only) 41.5 % (37.0-47.0); Hemoglobin 12.6 g/dl (12.0-16.0); Mean Corpuscular Hemoglobin 23.4 pg (25.0-34.0); Mean Corpuscular Volume 77.0 fL (80.0-100.0); Platelet Count 65 K/uL (130-400); RDW Standard Deviation 56.1 fL (36.4-46.3); Red Blood Count 5.39 M/uL (4.20-5.40); White Blood Count 16.07 K/ul (4.8-10.8)
[2024-11-10 06:27] LABS: Alanine Aminotransferase 175.0 U/L (7-52); Albumin Globulin Ratio 1.2 (0.9-2); Alkaline Phosphatase 269.0 U/L (34-104); Anion Gap 8.0 (3-11); Bilirubin,Total 2.8 mg/dl (0.2-1.0); Blood Urea Nitrogen 52.0 mg/dl (6-23); Calcium 8.6 mg/dl (8.6-10.3); Carbon Dioxide 26.0 mmol/L (21-32); Chloride 98.0 mmol/L (98-107); Creatinine Clr Calc Pharmacy 18.5 ml/min; Globulin 2.7 gm/dl (2.5-4.0); Glucose 95.0 mg/dl (70-99(Fasting)); Potassium 5.1 mmol/L (3.5-5.1); Sodium 132.0 mmol/L (136-145); Total Protein 5.9 gm/dl (6.0-8.3)
--- NOTE | 2024-11-10 07:04 | Hospitalist Progress Note ---
Date of Service November 10, 2024 Assessment & Plan (1) Bone lesion: (2) Failure to thrive in adult: (3) BRITTNEY (acute kidney injury): (4) HFrEF (heart failure with reduced ejection fraction): Plan Plan This patient is a 64-year-old female with a history of paroxysmal A-fib/flutter, CAD, bioprosthetic AVR, porcine MVR, PSVT, pulmonary HTN, COPD with chronic hypoxic respiratory failure w/ baseline 3 LNC O2, TIA/CVA x 2, HTN, HLD, HFpEF, myoclonus, underweight, severe osteoporosis, depression/anxiety, chronic opioid use, GERD, and hypothyroidism presenting with failure to thrive and an unwitnessed fall. She has had two recent hospitalizations 06/04-06/07 and 08/17-08/24 indicating a decline over the last several months. A more rapid decline over the last several days has occurred. Patient is being worked up for failure to thrive and new finding of osseous lucencies in the setting of BRITTNEY and HFrEF. #Failure to thrive in the adult - patient reports poor appetite, decreased oral intake for the last month. - Mg decreased and PO4 WNL -S/p 2g Mg on 11/07, given another 1gm IV mg today -Administered 1 dose of Vitamin K 5mg due to elevated INR on 11/07 -Encourage oral intake. Regular diet ordered -PT/OT evaluations appreciated #Skeletal lesions - concerning for multiple myeloma vs. metabolic bone disease vs malignancy. Patient also with BRITTNEY as well as likely anemia (microcytosis, expect H/H to drop after hydration) -Patient with hypocalcemia (rather than expected hypercalcemia seen in MM) -Pending SPEP and [place]/Lambda Light Chains in the urine -Check peripheral blood smear tomorrow am #BRITTNEY- BUN=49 Cr=2.7 on admission which is increased from last values of 29.7 and 1.44, respectively, on 09/26/24. Likely multifactorial - secondary to decreased oral intake as well as medication effects. Patient on Lisinopril and Spironolactone as an outpatient. She reports she has continued to take her medications. She has mildly elevated potassium at 5.5. EKG with no acute ischemic changes - Order nephrology consult appreciated, recommendations as follows: Cystatin C assessment ordered with next blood draw to help reconcile. Continue to hold dapagliflozin, lisinopril, and spironolactone. Keppra dose is likely excessive notably given kidney dysfunction Consider dose reduction of Keppra; level ordered with next blood draw. Furosemide will be restarted with goal to encourage gentle diuresis. Furosemide 40 mg IV x 1 ordered now. Suggest cardiology consultation to help with volume management in setting of right heart failure and pulmonary hypertension moving forward. Document strict I/O's. Repeat metabolic profile tomorrow AM. Follow up SPEP/IF pending. Findings are not consistent with IDD or myeloma. Hold spironolactone and lisinopril. Low K+ diet. Single dose of Lokelma provided yesterday. - Cr down trending at 1.98, BUN at 51 -eGFR 27.89 - FENa calculation for 11/08 was 0.6% indicating prerenal cause for BRITNTEY- likely renal hypoperfusion -Avoid nephrotoxic agents -Renal dosing where needed -Repeat chemistry in AM #HFrEF/Pleural effusions - Echocardiogram 08/17/24 with normal LV function, mild LVH, moderate Aortic regurgitation and bioprosthetic mitral valve. Patient appears to be overloaded with edema, JVD, rales, marked elevation of BNP. -Trial of IV lasix 40mg to diurese -Fluids held due to physical examination demonstrating fluid overload. -Continue Metoprolol -Holding Spironolactone and Lisinopril for now #Elevated Troponin: -EGK with no acute ischemic changes, significant for a 1st degree block, rightward axis, possible left atrial enlargement. - Troponin 167--> 214--> 220 -Repeat echo, with some valvular changes from Echo in 08/2024: Moderate LVH, Mod-severe Aortic Regurg and Tricuspid Regurg, Mild Mitral Stenosis. Increased right ventricular systolic pressure>60mmHg. Noted moderate Right pleural effusion #Elevated INR: #Elevated Liver Enzymes: LTFs increased from labs taken at admission. Portal HTN caused by right sided HF vs liver pathology. -INR, PT, aPTT elevated -AST and ALT down trending at 226 and 175 respectively -Total bilirubin increased to 2.8 -Alk Phos slight increased 269 -Protein and albumin decreased -Liver US showed: Heterogeneous slightly echogenic liver is nonspecific. This appearance is typically related to steatosis but can be seen with other cellular disorders. No biliary dilatation. Trace perihepatic ascites. -Consider hepatitis panel #Leukocytosis Pt has had slowly up-trending WBC since admission from 13-16.07 today. No known cause at this time. Pt denies feeling of illness or signs of infection. UA in ED was Trace for nitrites, however negative for UTI symptoms. - Consider CXR or repeat UA if symptoms begin - Continue to monitor with AM CBC #Hypothyroidism TSH elevated at 6.976 at admission. -Continue Synthroid -Follow up in outpatient #COPD - Some SOB, No cough or wheeze at present -No hx of hemoptysis -Continue Trelegy or formulary equivalent -DuoNebs PRN #Paroxysmal atrial fibrillation -Continue Amiodarone 200mg po daily -Continue Eliquis 2.5mg BID #GERD: -Continue Protonix Admission and Anticipated Discharge Date Admission Date: November 08, 2024 Supervising Physician Co-Signing Physician Notes ATTESTATION I also saw the patient and confirmed velasquez portions of the history and exam. I also discussed the case with Dr. Casas. I agree with the impression and plan in the resident documentation, and as summarized below. More talkative today but still feels weak with little appetite. EXAM 129/73, 90, 16 Appears tired CV regular, soft systolic murmur Lungs clear but decreased volume (+) LE edema DATA Labs Hgb 12.6, WBC 16, plt 65 smear pending sodium 132, potassium 5.1 BUN 52, Cr. 1.98 AST 226, ALT 175, Alk Phos 269, biliruin 2.[address] no acute findings Chest CT with small effusions, atelectasis, and scattered focal osseous lucencies. Liver US without lesions; slight echogenic. IMPRESSION & PLAN Failure to thrive in adult Severe protein calorie malnutrition Elevated LFTs/INR BRITTNEY (acute kidney injury) HFrEF (heart failure with reduced ejection fraction) Valvular heart disease Bone lesions Pleural effusion Elevated troponin I level COPD (chronic obstructive pulmonary disease) The cause of her progressive decline is not clear, although suspect related to her valvular disease, right sided failure and subsequent hepatic congestion Cystatin C to better determine GFR as serum creatinine probably not good surr ogate marker for kidney function given her minimal muscle mass Check keppra level (may help us later), and decrease Keppra to 250 mg BID Lasix 40 mg IV this morning Will involve cardiology tomorrow when her primary cardiology service is back After reviewing her DEXA scan from 01/2024 (significant osteoporosis with T scores -3.0 to -3.5), suspect lucencies seen on imaging merely reflect osteop orosis and not myeloma While SPEP/UPEP/FLC pending, doubtful this is myeloma Atorvastatin remains on hold given hepatic dysfunction Additional per resident documentation Subjective No acute events overnight. This morning, pt is awake, but sleepy during exam. She denies any significant changes since yesterday. She did eat a small portion of her breakfast, but has a very low appetite. She denies fever/chills, CP, SOB, GI discomfort, N/V/D/C, dysuria, suprapubic pain, or frequent urination Pt endorses minimally productive cough, but no different that prior to admission. Review of Systems Review of Systems: As per HPI Physical Exam Physical Exam: General: Cachectic and tired appearing HEENT: Normocephalic, atraumatic, moist mucous membranes, neck is supple, trachea midline, no lymphadenopathy or thyromegaly appreciated Respiratory: Decreased breath sounds bilaterally without wheezes, rales, or rhonchi Cardiovascular: Heart has RRR without murmurs, rubs, or gallops. No JVD. Bilateral 2+ lower extremity pitting edema. 1+ distal pulse palpated in all four extremities Abdomen: Abdomen is non distended and nontender. No hepatosplenomegaly appreciated. Normoactive bowel sounds. Skin: assessed skin for breakdown. Noted padding at B heels and elbows, and left posterior scapula. No wounds or areas of erythema noted. Neurologic: No focal neurological deficits Psychiatric: Appropriate mood and affect. Results & Data Results & Data Vital Signs (Past 12 Hours) Vital Signs Temp Pulse Resp BP Pulse Ox O2 Del Method O2 Flow Rate 11/09/24 21:36 Nasal Cannula 4 11/09/24 19:40 36.6 C 78 16 110/64 96 Nasal Cannula 3 Resident Activity Tracking Resident Involvement: Resident Care Provided Care Provided: Adult Hospital Medicine
[2024-11-10 08:31] LABS: INR 1.4 (0.9-1.1); Prothrombin Time 15.2 Seconds (9.0-12.0)
--- NOTE | 2024-11-10 09:44 | Nephrology Progress Note ---
Date of Service November 10, 2024 Assessment & Plan (1) BRITTNEY (acute kidney injury): Plan: Non-oliguric. Creatinine downtrending. CT does not demonstrate obstruction. Urine microscopy is acellular. Electrolytes acceptable. No emergent indication for [employer]ER. Clinical presentation consistent with prerenal BRITTNEY with evidence of acute on chronic CRS. Findings of predominately right heart failure. eGFR based on serum creatinine likely underestimates true kidney function. Cystatin C assessment ordered with next blood draw to help reconcile. Continue to hold dapagliflozin, lisinopril, and spironolactone. Medications are appropriate for kidney function -- however, Keppra dose is likely excessive notably given kidney dysfunction. Consider dose reduction of Keppra; level ordered with next blood draw. Furosemide will be restarted with goal to encourage gentle diuresis. Furosemide 40 mg IV x 1 ordered now. Suggest cardiology consultation to help with volume management in setting of right heart failure and pulmonary hypertension moving forward. Document strict I/O's. Repeat metabolic profile tomorrow AM. Baseline creatinine ~1.4 mg/dL. Follow up SPEP/IF pending. Findings are not consistent with IDD or myeloma. Hyponatremia attributed to kidney dysfunction and poor oral solute intake. Mild, chronic. Hyperkalemia mild associated with BRITTNEY and RAASi. Improved. Hold spironolactone and lisinopril. Low K+ diet. Single dose of Lokelma provided yesterday. (2) Heart failure with improved ejection fraction (HFimpEF): Plan: Concerning findings of valvular heart disease complicated by pulmonary hypertension and right heart failure. Cardiology consultation to assist with management encouraged. (3) Cor pulmonale: (4) Bone lesion: Plan: Not hypercalcemic. Imaging demonstrating severe osteoporosis. Maintained on abaloparatide. No obvious malignancy noted on CT chest abdomen and pelvis. SPEP/IF pending but atypical presentation for MM. (5) Failure to thrive in adult: Admission and Anticipated Discharge Date Admission Date: November 08, 2024 Subjective No acute events overnight. Jennifer states that she feels well this AM. Non- oliguric. Urine remains dark + concentrated. No dysuria. Jennifer slept well. She is breathing comfortably. O2 increased slightly from baseline 2-3 L to 4 L. She denies significant orthopnea. Appetite remains very poor but she denies nausea, vomiting, or abdominal pain/discomfort. She ate better this AM with encouragement from her nurse. She was out of bed and able to transfer independently. She reports improvement in her strength. She denies any lightheadedness or dizziness. No chest pains or palpitations. Jennifer denies fluid retention or edema. Stable BL LE edema noted. Plan of care discussed with Dr. Vargas this AM. Review of Systems Review of Systems: All systems reviewed & are unremarkable except as noted in HPI & below Physical Exam Constitutional: + ill appearing, + cachectic and + frail appearing; no acute distress Eyes: + anicteric sclerae ENMT: Mouth: + dry oral mucous membranes Neck: normal visual inspection and trachea midline Respiratory: normal respiratory effort Auscultation: lungs clear to auscultation bilaterally and + diminished lung sounds Cardiovascular: Rate/Rhythm: regular rate Heart Sounds: normal S1, normal S2 and + murmur Extremities: + edema Musculoskeletal: Extremities: + clubbing; no cyanosis and no petechiae Skin: no jaundice Neurologic: Motor/Sensory: no tremor and no asterixis Psychiatric: Orientation: alert and oriented x 3 Results & Data Vital Signs (Past 12 Hours) Vital Signs Temp Pulse Resp BP Pulse Ox O2 Del Method O2 Flow Rate 11/10/24 07:58 36.2 C L 90 16 129/73 93 Nasal Cannula 4 11/10/24 07:08 Nasal Cannula 4 Laboratory Results Laboratory Results - last 24 hr 11/10/24 11/10/24 05:21 07:21 WBC 16.07 H RBC 5.39 Hgb 12.6 Hct 41.5 MCV 77.0 L MCH 23.4 L MCHC 30.4 L RDW Std Deviation 56.1 H RDW Coeff of Claudette 20.9 H Plt Count 65 L Absolute Nucleated RBC 0.03 Nucleated RBC % (auto) 0.2 PT 15.2 H INR 1.4 H Sodium 132 L Potassium 5.1 Chloride 98 Carbon Dioxide 26 Anion Gap 8 BUN 52 H Creatinine 1.98 H D Est Cr Clr Drug Dosing 18.5 eGFR 27.89 BUN/Creatinine Ratio 26.3 H Glucose 95 Calcium 8.6 Phosphorus 3.9 Total Bilirubin 2.8 H AST 226 H ALT 175 H Alkaline Phosphatase 269 H Total Protein 5.9 L Albumin 3.2 L Globulin 2.7 Albumin/Globulin Ratio 1.2 PG Care Time/CCT Total # of Minutes Spent Total Time Spent with Patient: Total time spent is greater than 50% in coordination of care (as documented) at patient's floor/unit and/or counseling patient: Coding Level of Care Code 45700 SUB INP/OBS CARE 50MIN Diagnoses BRITTNEY (acute kidney injury) N17.9 Heart failure with improved ejection fraction (HFimpEF) I50.20 Cor pulmonale I27.81 Bone lesion M89.9 Failure to thrive in adult R62.7
[2024-11-10] MEDS: FUROSEMIDE 40 MG/4 ML VIAL IV ONE (10:35)
[2024-11-10] MEDS: levETIRAcetam 250 MG TAB PO SCH (20:02)
[2024-11-11 07:13] LABS: Hematocrit (blood only) 38.9 % (37.0-47.0); Hemoglobin 11.9 g/dl (12.0-16.0); Mean Corpuscular Hemoglobin 23.2 pg (25.0-34.0); Mean Corpuscular Volume 76.0 fL (80.0-100.0); Platelet Count 60 K/uL (130-400); RDW Standard Deviation 54.1 fL (36.4-46.3); Red Blood Count 5.12 M/uL (4.20-5.40); White Blood Count 16.96 K/ul (4.8-10.8)
[2024-11-11 07:28] LABS: Alanine Aminotransferase 137.0 U/L (7-52); Albumin Globulin Ratio 1.0 (0.9-2); Alkaline Phosphatase 248.0 U/L (34-104); Anion Gap 10.0 (3-11); Bilirubin,Total 3.5 mg/dl (0.2-1.0); Blood Urea Nitrogen 50.0 mg/dl (6-23); Calcium 8.3 mg/dl (8.6-10.3); Carbon Dioxide 25.0 mmol/L (21-32); Chloride 98.0 mmol/L (98-107); Creatinine Clr Calc Pharmacy 21.5 ml/min; Globulin 2.9 gm/dl (2.5-4.0); Glucose 132.0 mg/dl (70-99(Fasting)); Potassium 4.4 mmol/L (3.5-5.1); Sodium 133.0 mmol/L (136-145); Total Protein 5.8 gm/dl (6.0-8.3)
--- NOTE | 2024-11-11 10:02 | Nephrology Progress Note ---
Date of Service November 11, 2024 Assessment & Plan (1) BRITTNEY (acute kidney injury): (2) Failure to thrive in adult: (3) Fall: (4) Cor pulmonale: Plan 64 year-old F with with complex PMH including paroxysmal A-fib/flutter, CAD, aortic valve repair 2005 with moderate to severe aortic regurgitation, porcine MVR, moderate to severe TR, right heart failure, pulmonary HTN, advanced COPD with chronic hypoxic respiratory failure on 2 LNC O2, TIA/CVA x 2, HTN, HLD, HFimpEF, moderate concentric LVH, osteoporosis, MASOUD/MDD, chronic opioid use, GERD, and hypothyroidism, admitted on 11/07/24 with with generalized weakness, FTT, BRITTNEY and s/p fall at home. She has had two recent hospitalizations (June and July both with acute on chronic CHF). Has been having progressive overall decline in health as well as worsening frailty over the course of the past 6-7 months with poor appetite, nausea/vomiting, weight loss, myoclonus, generalized weakness, and significant reduced activity tolerance. A more rapid decline was noted for several days prior to admission. CT demonstrating multiple small osseous lucencies (diffusely scattered throughout the chest, thoracic and lumbar spine, as well as pelvis). Echo showed moderate to severe aortic regurgitation and moderate to severe tricuspid regurgitation. RVSP >60. On admission cr was 2.9 mg/dl with stage 3B CKD, b/l cr ~1.4 mg/dL. Also had mild hyperkalemia and hyponatremia. She was on lisinopril, spironolactone and Jardiance which was started in August 2024, has been on hold since admission. No anemia, hypercalcemia but has significant hypoalbuminemia, prior urine analysis was bland with acellular microscopy. Kidneys are relatively normal on imaging but calcific vascular disease is appreciated on CT involving the abdominal aorta and renal arteries. Kidney function continues to improve slowly, creatinine down to 1.7 mg/dl this morning. Blood pressure has been relatively low but stable. --Continue to monitor intake and output, aim to keep net negative, continue to hold diuretic at this time and resume as needed for decreased urine output and net positive. Admission and Anticipated Discharge Date Admission Date: November 08, 2024 Marilou Rodriguez was seen and evaluated this morning. She reports feeling about the same, denies any worsening of shortness of breath. Urine output 950 mL over last 24 hours after a dose of Lasix yesterday. Kidney function continues to improve slowly, creatinine down to 1.7 mg/dl. Blood pressure stable. Review of Systems Review of Systems: Detailed review of system was done and pertinent positives and negatives mentioned above. Physical Exam Constitutional: WD/WN, vitals as above + ill appearing and + cachectic; no acute distress Eyes: + anicteric sclerae Neck: normal visual inspection Respiratory: Auscultation: + diminished lung sounds Cardiovascular: Rate/Rhythm: regular rate and regular rhythm Heart Sounds: + murmur Extremities: + edema (2 + b/l LE edema) Skin: no rashes, warm and dry Neurologic: no focal motor deficits Psychiatric: Orientation: alert and oriented x 3 Results & Data Vital Signs (Past 12 Hours) Vital Signs Temp Pulse Pulse Resp BP Pulse Ox O2 Del Method 11/11/24 08:12 Nasal Cannula 11/11/24 07:54 36.6 C 96 H 18 107/62 94 Nasal Cannula 11/11/24 06:56 96 H 18 110/73 93 Nasal Cannula O2 Flow Rate 11/11/24 08:12 4 11/11/24 07:54 4 11/11/24 06:56 3 PG Care Time/CCT Total # of Minutes Spent Total Time Spent with Patient: Total time spent is greater than 50% in coordination of care (as documented) at patient's floor/unit and/or counseling patient: Coding Level of Care Code 97616 SUB INP/OBS CARE 2/35MIN Diagnoses BRITTNEY (acute kidney injury) N17.9 Failure to thrive in adult R62.7 Fall W19.XXXA Cor pulmonale I27.81
--- NOTE | 2024-11-11 13:58 | Hospitalist Progress Note ---
"Date of Service November 11, 2024 Assessment & Plan (1) Bone lesion: (2) Failure to thrive in adult: (3) BRITTNEY (acute kidney injury): (4) HFrEF (heart failure with reduced ejection fraction): Plan Plan This patient is a 64-year-old female with a history of paroxysmal A-fib/flutter, CAD, bioprosthetic AVR, porcine MVR, PSVT, pulmonary HTN, COPD with chronic hypoxic respiratory failure w/ baseline 3 LNC O2, TIA/CVA x 2, HTN, HLD, HFpEF, myoclonus, underweight, severe osteoporosis, depression/anxiety, chronic opioid use, GERD, and hypothyroidism presenting with failure to thrive and an unwitnessed fall. She has had two recent hospitalizations 06/04-06/07 and 08/17-08/24 indicating a decline over the last several months. A more rapid decline over the last several days has occurred. Patient is being worked up for failure to thrive and new finding of osseous lucencies in the setting of BRITTNEY and HFrEF. #Failure to thrive in the adult - patient reports poor appetite, decreased oral intake for the last month. Magnesium has been repleted Administered 1 dose of Vitamin K 5mg due to elevated INR on 11/07 Encourage oral intake. Regular diet ordered Dietitianist consult appreciated PT/OT evaluations appreciated #BRITTNEY- Improving Baseline Cr 1.4 Cr 2.92 on admission Likely multifactorial - secondary to decreased oral intake as well as medication effects. Patient on Lisinopril and Spironolactone as an outpatient. She re ports she has continued to take her medications. She has mildly elevated potassium at 5.5. EKG with no acute ischemic changes Nephrology consult appreciated - FENa calculation for 11/08 was 0.6% indicating prerenal cause for BRITTNEY- likely renal hypoperfusion Avoid nephrotoxic agents Renal dosing where needed Keppra level on 11/11 ordered, pending Consider albumin vs lasix if diuresis is needed Trend renal function labs #HFrEF/Pleural effusions - Echocardiogram 08/17/24 with normal LV function, mild LVH, moderate Aortic regurgitation and bioprosthetic mitral valve. Patient appears to be overloaded with edema, JVD, rales, marked elevation of BNP. Albumin PRN Fluids held due to physical examination demonstrating fluid overload. Continue Metoprolol Holding Spironolactone and Lisinopril for now in the setting of BRITTNEY Suspect most of patient's current symptoms are secondary to right-sided heart failure #Skeletal lesions - concerning for multiple myeloma vs. metabolic bone disease vs malignancy Most likely metabolic given recent DEXA scan Patient has low calcium levels (rather than expected hypercalcemia seen in MM) Patient also with BRITTNEY and anemia (microcytosis, expect H/H to drop after hydration) Pending SPEP and Breda/Lambda Light Chains in the urine Peripheral blood smear revealed anemia likely secondary to chronic disease lizzeth jm MEDHAT; leukocytosis unremarkable #Thrombocytopenia | Paroxysmal atrial fibrillation | CAD Continue Amiodarone 200mg po daily Eliquis was restarted at 2.5 mg twice daily; previously held due to fall While head CT is negative, patient's platelet count continues to drop during this hospital admission Platelets downtrendin on admission -> 60 on 11/11 Heart rate is currently controlled; sinus rhythm on arrival HOLD Eliquis starting on 11/11 Patient is also on Plavix daily for history of TIA/CVA x 2, as well as CAD; no h/o heart stents (per patient and per review of most recent cardiology notes) HOLD Plavix starting on 11/11 Follow a.m. labs and restart medications pending platelet trend #Elevated Troponin: EKG with no acute ischemic changes, significant for a 1st degree block, rightward axis, possible left atrial enlargement. Troponin 167--> 214--> 220 Repeat echo, no significant changes from Echo in 08/2024: Moderate LVH, Mod-severe Aortic Regurg and Tricuspid Regurg, Mild Mitral Stenosis. Increased right ventricular systolic pressure>60mmHg. Noted moderate Right pleural effusion #Elevated INR | Elevated LFTs LTFs increased from labs taken at admission. Portal HTN caused by right sided HF vs liver pathology. INR, PT, aPTT elevated AST and ALT increased to 301 and 161 respectively Total bilirubin increased to 2.6 Alk Phos slight decrease to 161 Protein and albumin decreased Ordered liver US Consider hepatitis panel #Hypothyroidism TSH elevated at 6.976 at admission Continue Synthroid Follow up in outpatient #COPD - Some SOB, No cough or wheeze at present No hx of hemoptysis Continue Trelegy or formulary equivalent DuoNebs PRN #GERD: Continue Protonix Disposition: Continued stay on [facility] Admission and Anticipated Discharge Date Admission Date: November 08, 2024 Supervising Physician Co-Signing Physician Notes The patient was not seen by me. The chart was reviewed. Case discussed with TERRA Chisholm. Agree with assessment and plan Subjective Mrs. Morrison reports she is feeling very similar to the how she did yesterday. She reports she worked with physical therapy today, and that her legs feel very weak. She reports most of the pain is in the back of her legs bilaterally as well as her lower back. She reports no falls in the hospital. She reports she has not been eating or drinking well, as she has had no appetite. Normally, she is on supplemental oxygen at baseline (2 to 3 L NC). ROS: Patient endorses lower extremity weakness, lower back pain, and leg pain bilaterally. Patient denies fever, chills, night sweats, chest pain, chest palpitations, SOB, cough, abdominal pain, N/V/D, change in urinary or bowel habits, decreased urinary frequency, or numbness or tingling in the legs. Review of Systems Review of Systems: See HPI above Physical Exam Physical Exam: General: no acute distress; lethargic; non-toxic appearing; cachectic; cooperative; SpO2 94% on 3L NC HEENT: normocephalic, atraumatic; no scleral icterus; PERRLA; vision and hearing intact Neck: supple; trachea midline Skin: Bronze skin; warm, dry without signs of tenting; no cyanosis; no rashes, bruising, lesions, or erythema noted CV: chest wall NTP; RRR; S1/S2 normal; no murmurs/rubs/gallops; pulses intact and symmetric at radial, DP, and PT Lungs: no acute respiratory distress; symmetrical chest wall expansion; clear breath sounds across all lung orellana w/o adventitious sounds; no wheezing ABD: Soft, NTP; BS present; no rebound/guarding; no distention MSK: no tics or fasciculations; +2 pitting edema noted in the LEs b/l, nonerythematous; significant strength deficits and atrophy of muscles; patient struggles to sit upright in her chair Neuro: A&Ox3; normal mood and affect; fluent speech; no focal deficits; patient report sensation is intact and symmetric in the lower extremities bilaterally Results & Data Results & Data Vital Signs (Past 12 Hours) Vital Signs Temp Pulse Pulse Resp BP Pulse Ox O2 Del Method 11/11/24 11:02 36.6 C 80 18 106/54 L 97 Nasal Cannula 11/11/24 08:12 Nasal Cannula 11/11/24 07:54 36.6 C 96 H 18 107/62 94 Nasal Cannula 11/11/24 06:56 96 H 18 110/73 93 Nasal Cannula O2 Flow Rate 11/11/24 11:02 4 11/11/24 08:12 4 11/11/24 07:54 4 11/11/24 06:56 3 PG Care Time/CCT Total # of Minutes Spent Total Time Spent with Patient: Total time spent is greater than 50% in coordination of care (as documented) at patient's floor/unit and/or counseling patient: Coding [place] [address] SUB INP/OBS CARE 3/50MIN Patient Type Established Medical Decision Making High Complexity Diagnoses Bone lesion M89.9 Failure to thrive in adult R62.7 BRITTNEY (acute kidney injury) N17.9 HFrEF (heart failure with reduced ejection fraction) I50.20"
[2024-11-12] MEDS: ACETAMINOPHEN 325 MG TAB PO PRN (00:17)
[2024-11-12 06:18] LABS: Albumin 3.4 g/dL (3.8-4.8); Beta-1-Globulin 0.5 g/dL (0.4-0.6); Gamma Globulin 0.9 g/dL (0.8-1.7); Total Protein 6.5 g/dL (6.1-8.1)
[2024-11-12 09:08] LABS: Hematocrit (blood only) 36.5 % (37.0-47.0); Hemoglobin 11.4 g/dl (12.0-16.0); Mean Corpuscular Hemoglobin 23.7 pg (25.0-34.0); Mean Corpuscular Volume 75.9 fL (80.0-100.0); Platelet Count 56 K/uL (130-400); RDW Standard Deviation 53.4 fL (36.4-46.3); Red Blood Count 4.81 M/uL (4.20-5.40); White Blood Count 14.72 K/ul (4.8-10.8)
[2024-11-12 09:25] LABS: Alanine Aminotransferase 88.0 U/L (7-52); Albumin Globulin Ratio 1.0 (0.9-2); Alkaline Phosphatase 220.0 U/L (34-104); Anion Gap 7.0 (3-11); Bilirubin,Total 3.2 mg/dl (0.2-1.0); Blood Urea Nitrogen 49.0 mg/dl (6-23); Calcium 8.5 mg/dl (8.6-10.3); Carbon Dioxide 27.0 mmol/L (21-32); Chloride 99.0 mmol/L (98-107); Creatinine Clr Calc Pharmacy 27.3 ml/min; Globulin 2.8 gm/dl (2.5-4.0); Glucose 95.0 mg/dl (70-99(Fasting)); Potassium 4.1 mmol/L (3.5-5.1); Sodium 133.0 mmol/L (136-145); Total Protein 5.6 gm/dl (6.0-8.3)
[2024-11-12 09:35] LABS: Anisocytosis Present; Immature Granulocytes # (auto) 0.16 K/uL (0.01-0.20); Immature Granulocytes % (auto) 1.1 %; Polychromasia 1+; Toxic Vacuolation 2+
--- NOTE | 2024-11-12 10:29 | Nephrology Progress Note ---
Date of Service November 12, 2024 Assessment & Plan (1) Bone lesion: (2) Failure to thrive in adult: (3) BRITTNEY (acute kidney injury): (4) HFrEF (heart failure with reduced ejection fraction): (5) Fall: (6) Cor pulmonale: Plan 64 year-old F with with complex PMH including paroxysmal A-fib/flutter, CAD, aortic valve repair 2005 with moderate to severe aortic regurgitation, porcine MVR, moderate to severe TR, right heart failure, pulmonary HTN, advanced COPD with chronic hypoxic respiratory failure on 2 LNC O2, TIA/CVA x 2, HTN, HLD, HFimpEF, moderate concentric LVH, osteoporosis, MASOUD/MDD, chronic opioid use, GERD, and hypothyroidism, admitted on 11/07/24 with with generalized weakness, FTT, BRITTNEY and s/p fall at home. She has had two recent hospitalizations (June and July both with acute on chronic CHF). Has been having progressive overall decline in health as well as worsening frailty over the course of the past 6-7 months with poor appetite, nausea/vomiting, weight loss, myoclonus, generalized weakness, and significant reduced activity tolerance. A more rapid decline was noted for several days prior to admission. CT demonstrating multiple small osseous lucencies (diffusely scattered throughout the chest, thoracic and lumbar spine, as well as pelvis). Echo showed moderate to severe aortic regurgitation and moderate to severe tricuspid regurgitation. RVSP >60. On admission cr was 2.9 mg/dl with stage 3B CKD, b/l cr ~1.4 mg/dL. Also had mild hyperkalemia and hyponatremia. She was on lisinopril, spironolactone and Jardiance which was started in August 2024, has been on hold since admission. No anemia, hypercalcemia but has significant hypoalbuminemia, prior urine analysis was bland with acellular microscopy. Kidneys are relatively normal on imaging but calcific vascular disease is appreciated on CT involving the abdominal aorta and renal arteries. Kidney function continues to improve slowly, creatinine down to 1.4 mg/dl this morning. Blood pressure has been relatively low but stable. --Although she does have bilateral lower extremity edema and pulmonary congestion, her p.o. intake has been extremely poor and net negative. Continue to hold diuretic at this time and monitor intake and output, aim to keep net negative, continue to hold diuretic at this time and resume as needed for decreased urine output and net positive. Admission and Anticipated Discharge Date Admission Date: November 08, 2024 Marilou Rodriguez was seen and evaluated this morning. She denies any worsening of shortness of breath however she has been staying mostly in bed, using 4 L nasal cannula oxygen. Reports overall feeling poorly, p.o. intake remains quite poor. Urine output about 750 mL. Kidney function continues to improve slowly, creatinine down to 1.4 mg/dl. Blood pressure stable. Review of Systems Review of Systems: Detailed review of system was otherwise unremarkable except mentioned above. Physical Exam Constitutional: WD/WN, vitals as above + ill appearing and + cachectic; no acute distress Eyes: + anicteric sclerae Neck: normal visual inspection Respiratory: Auscultation: + diminished lung sounds and + crackles Cardiovascular: Rate/Rhythm: regular rate and regular rhythm Heart Sounds: + murmur Extremities: + edema (2 + b/l LE edema) Skin: no rashes, warm and dry Neurologic: no focal motor deficits Psychiatric: Orientation: alert and oriented x 3 Affect: + depressed affect Results & Data Vital Signs (Past 12 Hours) Vital Signs Temp Pulse Resp BP Pulse Ox O2 Del Method O2 Flow Rate 11/12/24 09:00 Nasal Cannula 4 11/12/24 07:06 36.2 C L 86 16 155/64 H 96 Nasal Cannula 4 11/12/24 00:12 93 H 92 Nasal Cannula 4 11/12/24 00:11 67 L Room Air PG Care Time/CCT Total # of Minutes Spent Total Time Spent with Patient: Total time spent is greater than 50% in coordination of care (as documented) at patient's floor/unit and/or counseling patient: Coding Level of Care Code 10744 SUB INP/OBS CARE 2/35MIN Diagnoses Bone lesion M89.9 Failure to thrive in adult R62.7 BRITTNEY (acute kidney injury) N17.9 HFrEF (heart failure with reduced ejection fraction) I50.20 Fall W19.XXXA Cor pulmonale I27.81
--- NOTE | 2024-11-12 15:56 | Hospitalist Progress Note ---
"Date of Service November 12, 2024 Assessment & Plan (1) Bone lesion: (2) Failure to thrive in adult: (3) BRITTNEY (acute kidney injury): (4) HFrEF (heart failure with reduced ejection fraction): Plan This patient is a 64-year-old female with a history of paroxysmal A-fib/flutter, CAD, bioprosthetic AVR, porcine MVR, PSVT, pulmonary HTN, COPD with chronic hypoxic respiratory failure w/ baseline 3 LNC O2, TIA/CVA x 2, HTN, HLD, HFpEF, myoclonus, underweight, severe osteoporosis, depression/anxiety, chronic opioid use, GERD, and hypothyroidism presenting with failure to thrive and an unwitnessed fall. She has had two recent hospitalizations 06/04-06/07 and 08/17-08/24 indicating a decline over the last several months. A more rapid decline over the last several days has occurred. Patient is being worked up for failure to thrive and new finding of osseous lucencies in the setting of BRITTNEY and HFrEF. #Failure to thrive in the adult - patient reports poor appetite, decreased oral intake for the last month. Magnesium has been repleted Administered 1 dose of Vitamin K 5mg due to elevated INR on 11/07 - remains elevated 1.4 Dietitianist consult appreciated PT/OT evaluations - rec rehab Oncology has been consulted #BRITTNEY- Improving Baseline Cr 1.4, Cr 2.92 on admission. Likely multifactorial - secondary to decreased oral intake as well as medication effects. Patient on Lisinopril and Spironolactone as an outpatient. She reports she has continued to take her medications. She has mildly elevated Nephrology consult appreciated - brittney improving, volume overloaded but poor PO intake, continue to hold diuretics and monitor Keppra level on 11/11 ordered, pending #HFrEF/Pleural effusions - Echocardiogram 08/17/24 with normal LV function, mild LVH, moderate Aortic regurgitation and bioprosthetic mitral valve. Patient appears to be overloaded with edema, JVD, rales, marked elevation of BNP. Continue Metoprolol Holding Spironolactone and Lisinopril for now in the setting of BRITTNEY #Skeletal lesions - concerning for multiple myeloma vs. metabolic bone disease vs malignancy (intersing Ca levels are low) Pending SPEP and Brainerd/Lambda Light Chains in the urine Peripheral blood smear revealed anemia likely secondary to chronic disease versus MEDHAT; leukocytosis unremarkable Oncology consult pending will give venofer x 1 #Elevated INR | Elevated LFTs| Thrombocytopenia | Paroxysmal atrial fibrillation | CAD Continue Amiodarone 200mg po daily. Eliquis and plavix (hx of TIA/CVA, no stents) While head CT is negative, patient's platelet count continues to drop during this hospital admission with elevated INR INR also elevated, with Elevated, but down trending LFTs Liver US slightly echogenic but not specific, no dilation. AM CMP, CBC, Check hepatitis panel #Elevated Troponin: EKG with no acute ischemic changes, significant for a 1st degree block, rightward axis, possible left atrial enlargement. Troponin 167--> 214--> 220 Repeat echo, no significant changes from Echo in 08/2024: Moderate LVH, Mod- severe Aortic Regurg and Tricuspid Regurg, Mild Mitral Stenosis. Increased right ventricular systolic pressure>60mmHg. Noted moderate Right pleural effusion #Hypothyroidism TSH elevated at 6.976 at admission Continue Synthroid Follow up in outpatient #COPD - Continue Trelegy or formulary equivalent, DuoNebs PRN #GERD: Continue Protonix Disposition: Continued stay on MedSurg, trending labs, awaiting oncology consult Admission and Anticipated Discharge Date Admission Date: November 08, 2024 Supervising Physician Co-Signing Physician Notes The patient was not seen by me. The chart was reviewed. Case discussed with TERRA Swanson. Agree with assessment and plan Subjective patient seen lying in bed, reports still feeling about the same and overall quite week reports being weak since her fall, no inciting event for the fall discussed CT findings - she is waiting to talk to oncology Review of Systems Review of Systems: All systems reviewed & are unremarkable except as noted in Subjective Physical Exam Physical Exam: General: no acute distress; lethargic; non-toxic appearing; cachectic; HEENT: normocephalic, atraumatic; no scleral icterus; PERRLA; vision and hearing intact Neck: supple; trachea midline Skin: warm, dry without signs of tenting; no cyanosis; no rashes, bruising, lesions, or erythema noted CV: chest wall NTP; RRR; S1/S2 normal; no murmurs/rubs/gallops; Lungs: no acute respiratory distress; symmetrical chest wall expansion; clear breath sounds across all lung orellana w/o adventitious sounds; no wheezing ABD: MSK: no tics or fasciculations; +2 pitting edema noted in the LEs b/l, nonerythematous; atrophy of muscles; Neuro: A&Ox3; normal mood and affect; fluent speech; no focal deficits; Results & Data Results & Data Vital Signs (Past 12 Hours) Vital Signs Temp Pulse Resp BP Pulse Ox O2 Del Method O2 Flow Rate 11/12/24 15:23 97.2 F L 92 H 16 118/69 95 Nasal Cannula 4 11/12/24 09:00 Nasal Cannula 4 11/12/24 07:06 97.2 F L 86 16 155/64 H 96 Nasal Cannula 4 Laboratory Results cbc and chemistry reviewed PG Care Time/CCT Total # of Minutes Spent Total Time Spent with Patient: Total time spent is greater than 50% in coordination of care (as documented) at patient's floor/unit and/or counseling patient: Coding Level of Care Code 10571 SUB INP/OBS CARE 3/50MIN Diagnoses Bone lesion M89.9 Failure to thrive in adult R62.7 BRITTNEY (acute kidney injury) N17.9 HFrEF (heart failure with reduced ejection fraction) I50.20"
[2024-11-12] MEDS: IRON SUCROSE 300 MG in SODIUM CHLORIDE 0.9% 250 ML IV ONE (17:10)
[2024-11-12 23:42] LABS: Base Excess VBG 0.3 mEq/L; HCO3 VBG 26 mmol/L; Oxygen Saturation VBG 86.9 %; PCO2 VBG 45 mmHg (38-50); PO2 VBG 58 mmHg; pH VBG 7.37 (7.36-7.41)
[2024-11-12] MEDS: ALBUT/IPRATROP 3MG/0.5MG NEB 3 ML VIAL NEB PRN (23:58)
[2024-11-13 00:01] LABS: Alanine Aminotransferase 75.0 U/L (7-52); Albumin Globulin Ratio 0.8 (0.9-2); Alkaline Phosphatase 241.0 U/L (34-104); Anion Gap 9.0 (3-11); Bilirubin,Total 2.5 mg/dl (0.2-1.0); Blood Urea Nitrogen 48.0 mg/dl (6-23); Calcium 8.5 mg/dl (8.6-10.3); Carbon Dioxide 25.0 mmol/L (21-32); Chloride 98.0 mmol/L (98-107); Creatinine Clr Calc Pharmacy 28.2 ml/min; Globulin 3.2 gm/dl (2.5-4.0); Glucose 119.0 mg/dl (70-99(Fasting)); Potassium 4.1 mmol/L (3.5-5.1); Sodium 132.0 mmol/L (136-145); Total Protein 5.9 gm/dl (6.0-8.3)
--- NOTE | 2024-11-13 00:04 | Communication Note ---
Date of Service: November 13, 2024 Notified by nursing staff around around 23:11 that pt requiring more oxygen, baseline has been about 4L and throughout the evening required 6L and then reuben ntually oxymask 10L for high 80s sats. Went to bedside to assess patient. Pt appears relatively comfortable, very frail appearing. Lung sounds quite diminished L side and lung bases with rhonchi bilaterally. Vitals aside from saturations stable. Pt denies chest pain or SOB. States she was able to eat a little bit earlier today and no issues with coughing or choking with that intake. CXR ordered and reviewed at bedside; large progression of L sided consolidation. Per notes, duiretics held the last few days given poor renal function that has been improving. Pt does have dx of heart failure. Labs reviewed unremarkable VBG, Cr 1.3. Procal pending. Pt upgraded to PCU for closer monitoring. Will trial CPAP overnight and treated with 20 mg IV lasix + albumin for fluid shift. May need pulm consult to discuss possible thoracentesis if pt does not improve. Oncology is consulted given skeletal lesions noted on CT scan with concern for malignancy. Pt appears very malnourished and frail. Resident Activity Tracking Resident Involvement: Resident Care Provided Care Provided: Adult Hospital Medicine
[2024-11-13 00:14] LABS: Hematocrit (blood only) 39.3 % (37.0-47.0); Hemoglobin 12.2 g/dl (12.0-16.0); Mean Corpuscular Hemoglobin 23.7 pg (25.0-34.0); Mean Corpuscular Volume 76.3 fL (80.0-100.0); Platelet Count 67 K/uL (130-400); RDW Standard Deviation 54.4 fL (36.4-46.3); Red Blood Count 5.15 M/uL (4.20-5.40); White Blood Count 12.72 K/ul (4.8-10.8)
--- NOTE | 2024-11-13 00:15 | XRay Report ---
Exam(s): XR CXR 1 VIEW EXAM: XR Chest, 1 View CLINICAL HISTORY: Reason for exam: increasing oxygen requirement. TECHNIQUE: Frontal view of the chest. COMPARISON: Chest x-ray: 11/07/2024 FINDINGS: Lungs: There is increasing consolidation in the noted throughout the left lower lobe. There is increasing interstitial thickening and ground- glass consolidation in the hypoaerated left upper lobe. There is increased diffuse interstitial thickening noted in the right upper lobe. There is increased interstitial thickening and atelectasis in the right lung base. There are probable bilateral pleural effusions, left greater than right. Pleural space: No pneumothorax. Heart: There is mild to moderate cardiomegaly. Median sternotomy changes are noted. Mediastinum: Unremarkable. Normal mediastinal contour. Bones/joints: See above. IMPRESSION: 1. There is increasing consolidation in the noted throughout the left lower lobe. There is increasing interstitial thickening and ground-glass consolidation in the hypoaerated left upper lobe. There is increased diffuse interstitial thickening noted in the right upper lobe. There is increased interstitial thickening and atelectasis in the right lung base. 2. There are probable bilateral pleural effusions, left greater than right. Electronically signed by: Mark Blackmon MD 11/13/24 00:14 AM
[2024-11-13 00:35] LABS: Anisocytosis Present; Immature Granulocytes # (auto) 0.14 K/uL (0.01-0.20); Immature Granulocytes % (auto) 1.1 %; Polychromasia 1+
[2024-11-13] MEDS: FUROSEMIDE INJ 20 MG/2 ML VIAL IV ONE (00:43)
[2024-11-13] MEDS: ALBUMIN 25% 25 GM/100 ML VIAL IV ONE (00:43)
[2024-11-13] MEDS: PIPERACILLIN/TAZOBACTAM 4.5 GM/100 ML BAG IV STA (06:28)
[2024-11-13 07:13] LABS: Alanine Aminotransferase 58.0 U/L (7-52); Albumin Globulin Ratio 1.3 (0.9-2); Alkaline Phosphatase 182.0 U/L (34-104); Anion Gap 10.0 (3-11); Bilirubin,Total 3.2 mg/dl (0.2-1.0); Blood Urea Nitrogen 45.0 mg/dl (6-23); Calcium 9.0 mg/dl (8.6-10.3); Carbon Dioxide 27.0 mmol/L (21-32); Chloride 97.0 mmol/L (98-107); Creatinine Clr Calc Pharmacy 29.5 ml/min; Globulin 2.6 gm/dl (2.5-4.0); Glucose 104.0 mg/dl (70-99(Fasting)); Potassium 3.8 mmol/L (3.5-5.1); Sodium 134.0 mmol/L (136-145); Total Protein 6.1 gm/dl (6.0-8.3)
--- NOTE | 2024-11-13 07:22 | Oncology Consultation ---
Date of Consultation November 13, 2024 Assessment & Plan (1) Bone lesion: differential diagnosis of bone lesion includes: severe osteoporosis given the poor oral intake and poor nutritional status, versus malignant lesion either because of multiple myeloma or metastatic disease. At this point I will recommend comprehensive evaluation from a myeloma standpoint, recommending serum protein electrophoresis, 24-hour urine protein electrophoresis, free light chain assay. This is to rule out multiple myeloma. She will need functional imaging such as a PET scan to check for malignant bone lesions however that can be arranged on an outpatient basis. She obviously needs biopsy proven diagnosis for which we can consult our interventional radiology colleagues and get an IR guided biopsy of one of the bone lesions. Plan Thank you for this interesting oncological consult. A total of 60 minutes were spent in counseling, coordination of care, review of prior records. Medical oncology will continue to follow the patient make appropriate recommendations. History of Present Illness Reason for Consultation: Bone lesions failure to thrive in adult acute kidney injury Attending Physician: Prudence Napoles MD History of Present Illness the patient is a very pleasant 64-year-old woman with a history of COPD, gastroesophageal reflux disease, depression/anxiety who presented from home after a fall. At that point in the hospital she also reported poor appetite and decreased oral intake over the last several weeks. she had a CT of the abdomen pelvis on 11/08/2024 which revealed multiple focal bone lesions, concerning for metastatic bone disease and myeloma. She had a CT of the chest which revealed osteopenia, scattered focal lucencies throughout the skeleton. Rest of the lab work revealed microcytic hypochromic anemia along with thrombocytopenia and leukocytosis. She had acute kidney injury with a baseline creatinine between 1- 1.5. Calcium level was low on presentation with elevated bilirubin and elevated alkaline phosphatase. Total protein level was 6.1, serum albumin level was 2.7. Hematology/medical oncology has been consulted to assist in management of this patient with failure to thrive, severe osteopenia, possibility of skeletal lesions. Allergies Allergy/AdvReac Type Severity Reaction Status Date / Time aspirin Allergy Intermediate Hives Verified 09/13/24 09:50 hydrochlorothiazide Allergy Intermediate RASH/"Sick Verified 09/13/24 09:50 in stomach" trazodone AdvReac Severe Vomiting Verified 09/13/24 09:50 furosemide AdvReac Intermediate ELEVATED Verified 09/13/24 09:50 CREATINE tramadol AdvReac Mild Nausea Verified 09/13/24 09:50 Home Medications Medication Instructions Recorded Confirmed Type ipratropium 0.5 mg-albuterol 3 mg 3 ml NEB QID PRN shortness of 02/07/23 11/07/24 History (2.5 mg base)/3 mL nebulization breath or wheezing soln nebulizer accessories #5 ea 02/13/23 11/07/24 Rx nebulizers #1 ea 02/13/23 11/07/24 Rx Wheeled Walker #1 ea 02/22/23 11/07/24 Rx sodium chloride 7 % for 4 ml NEB BIDR #240 mL 05/11/23 11/07/24 Rx nebulization cholecalciferol (vitamin D3) 50 4,000 unit PO QAM 90 days #180 tabs 08/18/23 11/07/24 Rx mcg (2,000 unit) tablet (Vitamin D3) spironolactone 25 mg tablet 25 mg PO DAILY #90 tabs 11/07/23 11/07/24 Rx atorvastatin 40 mg tablet 40 mg PO QPM #90 tabs 02/23/24 11/07/24 Rx Oxygen Home 02/26/24 11/07/24 History clopidogrel 75 mg tablet 75 mg PO QPM #90 tabs 02/28/24 11/07/24 Rx montelukast 10 mg tablet 10 mg PO QAM #90 tabs 02/29/24 11/07/24 Rx abaloparatide (Tymlos) 80 mcg (0.04 mL) subcut DAILY 03/04/24 11/07/24 Rx #1.56 mL pen needle, diabetic 32 gauge x #100 ea 03/05/24 11/07/24 Rx 5/32" (BD Aruna 2nd Gen Pen Needle) levetiracetam 500 mg tablet 500 mg PO BID 90 days #180 tabs 05/10/24 11/07/24 Rx (Keppra) pantoprazole 40 mg tablet,delayed 40 mg PO DAILY #90 tabs 05/28/24 11/07/24 Rx release amiodarone 200 mg tablet 200 mg PO QAM #90 tabs 06/10/24 11/07/24 Rx cyanocobalamin (vitamin B-12) 1,000 mcg PO QAM #90 tabs 06/10/24 11/07/24 Rx 1,000 mcg tablet fluticasone fur. 200 mcg-umeclid 1 inh inhalation DAILY #60 ea 06/10/24 11/07/24 Rx 62.5 mcg-vilant 25 mcg inhalat.powder (Trelegy Ellipta) folic acid 1 mg tablet 1 mg PO QAM #90 tabs 06/10/24 11/07/24 Rx metoprolol succinate 25 mg 12.5 mg (1/2 x 25 mg) PO DAILY #45 06/10/24 11/07/24 Rx tablet,extended release 24 hr tabs mirtazapine 15 mg tablet 15 mg PO HS #90 tabs 06/10/24 11/07/24 Rx levothyroxine 150 mcg tablet 150 mcg PO DAILY #90 tabs 08/12/24 11/07/24 Rx lisinopril 2.5 mg tablet 2.5 mg PO QAM #90 tabs 08/22/24 11/07/24 Rx magnesium oxide 400 mg (241.3 mg 400 mg PO BID #60 tabs 08/23/24 11/07/24 Rx magnesium) tablet dapagliflozin propanediol 10 mg 10 mg PO DAILY #30 tabs 09/13/24 11/07/24 Rx tablet (Farxiga) oxycodone 5 mg tablet 5 mg PO QID PRN pain #120 tabs 10/30/24 11/07/24 Rx Patient History Medical History (Updated 11/08/24 @ 01:39 by Becky Sharp DO) Atrial flutter Hypoglycemia Acute hyperkalemia Sepsis Hyperkalemia Flu Sepsis Elevated troponin I level Acute respiratory failure with hypoxia and hypercapnia Positive colorectal cancer screening using Cologuard test On anticoagulant therapy plavix daily---MVR/AVR--follows with Krystian Valles Chronic combined systolic (congestive) and diastolic (congestive) heart failure Bilateral pleural effusion hx Mitral valve disease s/p MVR (2005) History of aortic valve disease s/p AVR (2005) Chronic back pain + neck Arthritis Hyperlipidemia Ischemic stroke Remote hx per records (?11/2018) Emphysema/COPD inhaler daily/prn, nebulizer prn Fibromyalgia Peripheral neuropathy GERD (gastroesophageal reflux disease) Depression Anxiety Transient ischemic attack (TIA) 2019--no deficits, followed with Dr. Plummer (cleared) follows with PCP and cardiology Hyperlipidemia On home oxygen therapy 2L O2 HS + PRN Surgical History History of esophagogastroduodenoscopy (EGD) History of colonoscopy History of heart valve replacement AVR (2005) History of lung biopsy History of bronchoscopy H/O: hysterectomy Family History Mother Slow to wake up after anesthesia Sister Family history of diabetes mellitus Father Stroke Osteoarthritis Other Coronary heart disease Denies family history of Ovarian cancer Prostate cancer Breast cancer Colorectal cancer Social History Smoking Status: Former smoker Tobacco Type: Cigarettes Age Started Using Tobacco: 18; Age Quit Using Tobacco: 59; packs per day: 0.5; Second Hand Exposure: Yes (family smokes); Do You Dip or Chew Tobacco: No; Hx Alcohol Use: No Hx Substance Use: No Preferred Language: Croatian Communication Ability: Effective Hearing Ability: Normal Nitroglycerin Neutralizer Required: No Beliefs That Will Affect Care: None marital status: Current Living Situation: Significant Other Current Living Situation Comment: [place]án current occupational status: unemployed and disabled How many Children do You have: 2 Feels Safe at Home: Yes Childhood Exposure to Second-Hand Smoke: Yes Diet: regular during the past year weight has: decreased > 10 lbs Dental Care, Regularly: No Physical Activity Frequency: 3-4 Times per Week Seatbelt Use: always Sunscreen Use: Yes Assistive Devices: Denture - Upper, Denture - Lower, Glasses, Oxygen - Continuous and Walker Review of Systems Review of Systems: Failure to thrive, decreased oral intake, weight loss, fatigue Constitutional: as per Subjective / HPI Eyes: as per Subjective / HPI Ear, Nose, Mouth, Throat: as per Subjective / HPI Respiratory: as per Subjective / HPI Cardiovascular: as per Subjective / HPI Gastrointestinal: as per Subjective / HPI Genitourinary: as per Subjective / HPI Musculoskeletal: as per Subjective / HPI Integumentary: as per Subjective / HPI Neurologic: as per Subjective / HPI Psychiatric: as per Subjective / HPI Endocrine: as per Subjective / HPI Hematologic / Lymphatic: as per Subjective / HPI Physical Exam Constitutional: WD/WN, vitals as above Eyes: PERRL, conjunctivae normal, anicteric sclerae ENMT: external ear and nose normal, oropharynx normal Neck: trachea midline, no thyromegaly Respiratory: normal respiratory effort, lungs clear to auscultation Cardiovascular: RRR, no murmur, no edema Gastrointestinal (Abdomen): normal bowel sounds, soft, nontender, no hepatosplenomegaly Musculoskeletal: no cyanosis or clubbing, extremities motor strength 5/5 Skin: no rashes, warm and dry Results & Data Vital Signs (Past 12 Hours) Vital Signs Temp Pulse Pulse Pulse Resp BP Pulse Ox 11/13/24 06:32 11/13/24 06:20 91 11/13/24 06:19 84 L 11/13/24 02:48 36.9 C 91 H 20 147/68 H 100 11/13/24 01:46 92 H 19 94 11/13/24 01:08 92 H 11/13/24 00:40 92 11/13/24 00:30 11/13/24 00:27 36.6 C 76 18 148/74 H 87 L 11/12/24 23:58 91 H 20 93 11/12/24 22:45 89 L 11/12/24 22:40 83 L 11/12/24 21:09 88 L 11/12/24 21:08 11/12/24 19:50 36.4 C L 93 H 16 127/68 85 L O2 Del Method O2 Flow Rate FiO2 11/13/24 06:32 Oxymask 11/13/24 06:20 Oxymask 11/13/24 06:19 Nasal Cannula 9 11/13/24 02:48 CPAP 11/13/24 01:46 60 11/13/24 01:08 11/13/24 00:40 Oxymask 11/13/24 00:30 Oxymask 10 11/13/24 00:27 Oxymask 13 11/12/24 23:58 Oxymask 10 11/12/24 22:45 Oxymask 10 11/12/24 22:40 Nasal Cannula 6 11/12/24 21:09 Nasal Cannula 6 11/12/24 21:08 Nasal Cannula 11/12/24 19:50 Nasal Cannula 4
[2024-11-13 07:24] LABS: Anisocytosis Present; Hematocrit (blood only) 35.5 % (37.0-47.0); Hemoglobin 11.2 g/dl (12.0-16.0); Hypochromasia Present; Immature Granulocytes # (auto) 0.15 K/uL (0.01-0.20); Immature Granulocytes % (auto) 1.3 %; Mean Corpuscular Hemoglobin 24.2 pg (25.0-34.0); Mean Corpuscular Volume 76.7 fL (80.0-100.0); Ovalocytes 1+; Platelet Count 68 K/uL (130-400); Polychromasia 1+; RDW Standard Deviation 54.2 fL (36.4-46.3); Red Blood Count 4.63 M/uL (4.20-5.40); Target Cells 1+; Tear Drop Cells 1+; White Blood Count 11.42 K/ul (4.8-10.8)
[2024-11-13 08:53] LABS: Kappa Light Chain, Free, Urine 157.22 mg/L (<=32.90); Kappa/Lambda, Free Ratio, Ur 2.45 (<=8.69); Lambda Light Chain, Free, Ur 64.09 mg/L (<=3.79)
--- NOTE | 2024-11-13 10:03 | Nephrology Progress Note ---
Date of Service November 13, 2024 Assessment & Plan (1) BRITTNEY (acute kidney injury): (2) Bone lesion: (3) Failure to thrive in adult: (4) HFrEF (heart failure with reduced ejection fraction): (5) Fall: (6) Cor pulmonale: Plan 64 year-old F with with complex PMH including paroxysmal A-fib/flutter, CAD, aortic valve repair 2005 with moderate to severe aortic regurgitation, porcine MVR, moderate to severe TR, right heart failure, pulmonary HTN, advanced COPD with chronic hypoxic respiratory failure on 2 LNC O2, TIA/CVA x 2, HTN, HLD, HFimpEF, moderate concentric LVH, osteoporosis, MASOUD/MDD, chronic opioid use, GERD, and hypothyroidism, admitted on 11/07/24 with with generalized weakness, FTT, BRITTNEY and s/p fall at home. She has had two recent hospitalizations (June and July both with acute on chronic CHF). Has been having progressive overall decline in health as well as worsening frailty over the course of the past 6-7 months with poor appetite, nausea/vomiting, weight loss, myoclonus, generalized weakness, and significant reduced activity tolerance. A more rapid decline was noted for several days prior to admission. CT demonstrating multiple small osseous lucencies concerning for severe osteoporosis versus myeloma versus metastatic lesion. Echo showed moderate to severe aortic regurgitation and moderate to severe tricuspid regurgitation. RVSP >60. On admission cr was 2.9 mg/dl with stage 3B CKD, b/l cr ~1.4 mg/dL. Also had mild hyperkalemia and hyponatremia. She was on lisinopril, spironolactone and Jardiance which was started in August 2024, has been on hold since admission. No anemia, hypercalcemia but has significant hypoalbuminemia, prior urine analysis was bland with acellular microscopy. Kidneys are relatively normal on imaging but calcific vascular disease is appreciated on CT involving the abdominal aorta and renal arteries. Kidney function continues to improve slowly, creatinine down to 1.2 mg/dl this morning. Blood pressure has been slightly elevated. Decent urine output. --Resume Lasix at 40 mg daily. Continue to monitor intake and output, aim to keep net negative. --Monitor kidney function and electrolyte on diuretics. Admission and Anticipated Discharge Date Admission Date: November 08, 2024 Marilou Rodriguez was seen and evaluated this morning. She denies any symptoms and reports better p.o. intake however continued to have significant pulmonary congestion on exam and oxygen requirement has been much higher, currently on 10 L nasal cannula oxygen. Blood pressure elevated. Kidney function continue to improve and creatinine down to 1.2, electrolyte acceptable. Reports decent urine output. Review of Systems Constitutional: + fatigue, + weakness and + weight loss Physical Exam Constitutional: WD/WN, vitals as above + ill appearing and + cachectic; no acute distress Eyes: + anicteric sclerae Neck: normal visual inspection Respiratory: Auscultation: + diminished lung sounds and + crackles Cardiovascular: Rate/Rhythm: regular rate and regular rhythm Heart Sounds: + murmur Extremities: + edema (2 + b/l LE edema) Skin: no rashes, warm and dry Neurologic: no focal motor deficits Psychiatric: Orientation: alert and oriented x 3 Affect: + depressed affect Results & Data Vital Signs (Past 12 Hours) Vital Signs Temp Pulse Pulse Pulse Resp BP Pulse Ox 11/13/24 07:40 36.7 C 94 H 20 156/72 H 97 11/13/24 06:32 11/13/24 06:20 91 11/13/24 06:19 84 L 11/13/24 02:48 36.9 C 91 H 20 147/68 H 100 11/13/24 01:46 92 H 19 94 11/13/24 01:08 92 H 11/13/24 00:40 92 11/13/24 00:30 11/13/24 00:27 36.6 C 76 18 148/74 H 87 L 11/12/24 23:58 91 H 20 93 11/12/24 22:45 89 L 11/12/24 22:40 83 L O2 Del Method O2 Flow Rate FiO2 11/13/24 07:40 Nasal Cannula 11/13/24 06:32 Oxymask 11/13/24 06:20 Oxymask 11/13/24 06:19 Nasal Cannula 11/13/24 02:48 CPAP 11/13/24 01:46 60 11/13/24 01:08 11/13/24 00:40 Oxymask 11/13/24 00:30 Oxymask 11/13/24 00:27 Oxymask 11/12/24 23:58 Oxymask 11/12/24 22:45 Oxymask 11/12/24 22:40 Nasal Cannula 6 PG Care Time/CCT Total # of Minutes Spent Total Time Spent with Patient: Total time spent is greater than 50% in coordination of care (as documented) at patient's floor/unit and/or counseling patient: Coding Level of Care Code 92466 SUB INP/OBS CARE 2/35MIN Diagnoses BRITTNEY (acute kidney injury) N17.9 Bone lesion M89.9 Failure to thrive in adult R62.7 HFrEF (heart failure with reduced ejection fraction) I50.20 Fall W19.XXXA Cor pulmonale I27.81
[2024-11-13] MEDS: FUROSEMIDE 40 MG TAB PO SCH (10:50)
--- NOTE | 2024-11-13 10:50 | XRay Report ---
XR chest 1V portable CLINICAL HISTORY: S/P Thoracentesis rule out pneumothorax COMPARISON STUDY: 11/12/2024 FINDINGS: Single view erect chest demonstrates the left pleural effusion has largely been evacuated. There is no pneumothorax. Prominent reticular nodular pulmonary opacities are redemonstrated diffusel y involving both lungs. Cardiomegaly persists. Median sternotomy wire sutures are noted. There is mild blunting of the right costophrenic angle with probable adjacent discoid atelectasis. Th ere is patchy airspace opacity in the left lung base suspicious for pneumonia. IMPRESSION: Status post left thoracentesis. No evidence of pneumothorax. Bilateral interstitial opac ities remain pronounced. Trace right pleural effusion suspected. Left lower lobe infiltrate present. ACT 112: Negative or not required by law. Electronically signed by: Tiarra Sepulveda M.D. 11/13/2024 10:49 AM
--- NOTE | 2024-11-13 11:07 | Procedure Note ---
Procedure Note Date of Service November 13, 2024 Procedure: Diagnostic therapeutic ultrasound-guided catheter of Left thoracentesis Supervising Physician: Dr. Omer Cole MD Consumer Analyst: LOVE Elizabeth Indication: Left Pleural effusion Consent: Signed by patient and verified with time out prior to procedure Anesthesia: 1% lidocaine without epinephrine local. Procedure: Consent was verified and time out performed. Appropriate imaging studies were reviewed prior to the procedure. Patient was placed in a seated position and limited thoracic ultrasound was performed of the left chest. See separate imaging. Appropriate site above the diaphragm for thoracentesis was selected. The skin was prepped and draped in normal sterile fashion. Lidocaine was used for local analgesia. Fluid was aspirated via the finder needle. A small skin grupo was made with the scalpel and the catheter over the needle apparatus was advanced over the rib into the pleural space. Using the syringe one-way valve system, a total of 1400 mL's of serosanguineous fluid was removed. Procedure was terminated due to no further fluid aspirated. The catheter was removed and observed to be intact. A sterile dressing was applied. Post procedure chest x-ray was ordered. Fluid was sent for labs, culture and cytology. Complications: None Blood loss: 0 MN[facility] Procedure Codes (Charges) Pulmonary/Thoracic Procedure 1: Pulmonary and Thoracic: 77195 Thoracentesis w imaging Coding CPT Codes Pulmonary/Thoracic - Pulmonary and Thoracic: 58944 Thoracentesis w imaging ([id number]) Additional Codes Date of Service ([facility].SURGERY)
--- NOTE | 2024-11-13 11:08 | Pulmonary Consultation ---
Date of Consultation November 13, 2024 Assessment & Plan (1) Pleural effusion: (2) Cor pulmonale: (3) Pulmonary edema: (4) Emphysema/COPD: Emphysema type: centrilobular Qualified Code(s): J43.2 - Centrilobular emphysema (5) Hypoxia: (6) On home oxygen therapy: Plan Jennifer Morrison is a 64-year-old female with past medical history of atrial fibrillation on Eliquis, CAD on plavix, bioprosthetic AVR, porcine MVR, paroxysmal supraventricular tachycardia, pulmonary hypertension, COPD, chronic hypoxic respiratory failure who wears 3 liters nasal cannula at baseline, TIA/CVA, HTN, HLD, depression, anxiety, GERD, hypothyroidism, and failure to thrive; who presented to [facility] ED on 11/08/2024 with generalized weakness and unfortunately suffered an unwitnessed fall at home with a 2.5 hr downtime with worsening hypoxia and left pleural effusion in setting of likely heart failure exacerbation with possible undiagnosed malignancy. Left pleural effusion likely related to heart failure exacerbation v. possible malignancy -CXR 11/12 showed large left pleural effusion -BNP 3575 and diuretics held in since admission due to BRITTENY. Lasix resumed this am would continue daily. Nephro following. -Thoracentesis on 11/13/24 with 1400ml of serosanguineous fluid removed. Post procedure CXR showed bilateral pulm edema with minimal left pleural effusion. No pneumothorax. -Culture, cell count and differential, and cytology pending. Acute on chronic hypoxemic respiratory failure related to likely heart failure exacerbation; COPD -Wears 3L nasal cannula at baseline. Was as high as 13L/min on 11/12 down to 7-10 liters this am -Patient does not appear to be in exacerbation. Continue Arnuity Ellipta and Anoro Ellipta. Duonebs PRN. Continue montelukast. No need for steroids at this time. -Continue diuresis -Can D/C Zosyn as patient does not appear to likely be infected. -Maintain SpO2 90% or above in setting of cor pulmonale. Cor pulmonale; Pulmonary hypertension group II v. III -TTE from 11/08/2024 LV systolic function normal, EF 55-60%, mildly dilated RV w/ reduced systolic function, TAPSE 1.4cm, moderate to severe tricuspid regurgitation, RVSP > 60mmHg. -Maintain SpO2 90% or above. -Continue diuresis Thank you for allowing us to participate in this patients care. Please feel free to reach out with any questions or concerns. Supervising Physician Co-Signing Physician Notes Patient seen and examined. EMR reviewed. Images were independently reviewed. Discussed with AUNDREA and agree with assessment plan as noted. Pleural effusion of unclear etiology. Renal failure, heart failure all possible. Cannot rule out malignancy. CT scan was reviewed. She does have a pretracheal lymph node which was identified on a CT scan from a year ago but may have slightly increased in size. She has an extensive history of tobacco abuse. Thoracentesis is warranted to provide the patient symptomatic relief as well as to characterize the pleural fluid. She is agreeable to proceed. Of note there are multiple lucencies in the spine and the patient is being worked up for those as well. The above recommendations and plan were discussed with the patient. Questions were answered to the best my ability. She expressed understanding and is in agreement with plan as outlined History of Present Illness Reason for Consultation: Worsening hypoxic respiratory failure. Left pleural effusion. Attending Physician: Prudence Napoles MD History of Present Illness Jennifer Morrison is a 64-year-old female with past medical history of atrial fibrillation on Eliquis, CAD on plavix, bioprosthetic AVR, porcine MVR, paroxysmal supraventricular tachycardia, pulmonary hypertension, COPD, chronic hypoxic respiratory failure who wears 3 liters nasal cannula at baseline, TIA/CVA, HTN, HLD, depression, anxiety, GERD, hypothyroidism, and failure to thrive; who presented to [facility] ED on 11/08/2024 with generalized weakness and unfortunately suffered an unwitnessed fall at home with a 2.5 hr downtime. The patient over the past few weeks endorses poor appetite and fluid intake where she takes only sips of water per day and does eat at all. In the ED the patient had a chest x-ray which showed bilateral pleural effusions L > R and pulmonary edema. CT cervical, thoracic, and spine showed no fractures. CT chest, abdomen, and pelvis bilateral pulmonary edema and small effusions as well as multiple osseous lesions concerning for malignancy or metastatic process. Labs showed acute kidney injury in setting of probable heart failure exacerbation (BNP 3575) Patient was admitted to the Hospitalist service. The patient's diuretics were held due to BRITTNEY and she was being worked up for possible malignancy. She was maintained on her baseline 3 liters until 11/12/24 when she had increasing oxygen requirement to 10-13L/min. CXR showed worsening of her left pleural effusion and pulmonary edema. Pulmonary was consulted for evaluation and management of left pleural effusion and worsening hypoxia. Patient has been afebrile, WBC 11.42, Procal 0.96. Patient was started on empiric Zosyn for presumed pneumonia which is discontinued on 11/13/24. Patient is a former smoker with a 45 pack year history who quit 5 years ago. Patient is on 3L NC at her baseline. She is on trelegy and PRN albuterol for COPD. She has been seen in clinic by Dr. Ramsay in the past. Patient lives at home with boyfriend. She denies water damage and exposure to mold. Allergies Allergy/AdvReac Type Severity Reaction Status Date / Time aspirin Allergy Intermediate Hives Verified 09/13/24 09:50 hydrochlorothiazide Allergy Intermediate RASH/"Sick Verified 09/13/24 09:50 in stomach" trazodone AdvReac Severe Vomiting Verified 09/13/24 09:50 furosemide AdvReac Intermediate ELEVATED Verified 09/13/24 09:50 CREATINE tramadol AdvReac Mild Nausea Verified 09/13/24 09:50 Home Medications Medication Instructions Recorded Confirmed Type ipratropium 0.5 mg-albuterol 3 mg 3 ml NEB QID PRN shortness of 02/07/23 11/07/24 History (2.5 mg base)/3 mL nebulization breath or wheezing soln nebulizer accessories #5 ea 02/13/23 11/07/24 Rx nebulizers #1 ea 02/13/23 11/07/24 Rx Wheeled Walker #1 ea 02/22/23 11/07/24 Rx sodium chloride 7 % for 4 ml NEB BIDR #240 mL 05/11/23 11/07/24 Rx nebulization cholecalciferol (vitamin D3) 50 4,000 unit PO QAM 90 days #180 tabs 08/18/23 11/07/24 Rx mcg (2,000 unit) tablet (Vitamin D3) spironolactone 25 mg tablet 25 mg PO DAILY #90 tabs 11/07/23 11/07/24 Rx atorvastatin 40 mg tablet 40 mg PO QPM #90 tabs 02/23/24 11/07/24 Rx Oxygen Home 02/26/24 11/07/24 History clopidogrel 75 mg tablet 75 mg PO QPM #90 tabs 02/28/24 11/07/24 Rx montelukast 10 mg tablet 10 mg PO QAM #90 tabs 02/29/24 11/07/24 Rx abaloparatide (Tymlos) 80 mcg (0.04 mL) subcut DAILY 03/04/24 11/07/24 Rx #1.56 mL pen needle, diabetic 32 gauge x #100 ea 03/05/24 11/07/24 Rx 5/32" (BD Aruna 2nd Gen Pen Needle) levetiracetam 500 mg tablet 500 mg PO BID 90 days #180 tabs 05/10/24 11/07/24 Rx (Keppra) pantoprazole 40 mg tablet,delayed 40 mg PO DAILY #90 tabs 05/28/24 11/07/24 Rx release amiodarone 200 mg tablet 200 mg PO QAM #90 tabs 06/10/24 11/07/24 Rx cyanocobalamin (vitamin B-12) 1,000 mcg PO QAM #90 tabs 06/10/24 11/07/24 Rx 1,000 mcg tablet fluticasone fur. 200 mcg-umeclid 1 inh inhalation DAILY #60 ea 06/10/24 11/07/24 Rx 62.5 mcg-vilant 25 mcg inhalat.powder (Trelegy Ellipta) folic acid 1 mg tablet 1 mg PO QAM #90 tabs 06/10/24 11/07/24 Rx metoprolol succinate 25 mg 12.5 mg (1/2 x 25 mg) PO DAILY #45 06/10/24 11/07/24 Rx tablet,extended release 24 hr tabs mirtazapine 15 mg tablet 15 mg PO HS #90 tabs 06/10/24 11/07/24 Rx levothyroxine 150 mcg tablet 150 mcg PO DAILY #90 tabs 08/12/24 11/07/24 Rx lisinopril 2.5 mg tablet 2.5 mg PO QAM #90 tabs 08/22/24 11/07/24 Rx magnesium oxide 400 mg (241.3 mg 400 mg PO BID #60 tabs 08/23/24 11/07/24 Rx magnesium) tablet dapagliflozin propanediol 10 mg 10 mg PO DAILY #30 tabs 09/13/24 11/07/24 Rx tablet (Farxiga) oxycodone 5 mg tablet 5 mg PO QID PRN pain #120 tabs 10/30/24 11/07/24 Rx Patient History Medical History (Updated 11/08/24 @ 01:39 by Becky Sharp DO) Atrial flutter Hypoglycemia Acute hyperkalemia Sepsis Hyperkalemia Flu Sepsis Elevated troponin I level Acute respiratory failure with hypoxia and hypercapnia Positive colorectal cancer screening using Cologuard test On anticoagulant therapy plavix daily---MVR/AVR--follows with Krystian Valles Chronic combined systolic (congestive) and diastolic (congestive) heart failure Bilateral pleural effusion hx Mitral valve disease s/p MVR (2005) History of aortic valve disease s/p AVR (2005) Chronic back pain + neck Arthritis Hyperlipidemia Ischemic stroke Remote hx per records (?11/2018) Emphysema/COPD inhaler daily/prn, nebulizer prn Fibromyalgia Peripheral neuropathy GERD (gastroesophageal reflux disease) Depression Anxiety Transient ischemic attack (TIA) 2005, 2019--no deficits, followed with Dr. Plummer (cleared) follows with PCP and cardiology Hyperlipidemia On home oxygen therapy 2L O2 HS + PRN Surgical History History of esophagogastroduodenoscopy (EGD) History of colonoscopy History of heart valve replacement AVR (2005) History of lung biopsy History of bronchoscopy H/O: hysterectomy Family History Mother Slow to wake up after anesthesia Sister Family history of diabetes mellitus Father Stroke Osteoarthritis Other Coronary heart disease Denies family history of Ovarian cancer Prostate cancer Breast cancer Colorectal cancer Social History Smoking Status: Former smoker Tobacco Type: Cigarettes Age Started Using Tobacco: 18; Age Quit Using Tobacco: 59; packs per day: 0.5; Second Hand Exposure: Yes (family smokes); Do You Dip or Chew Tobacco: No; Hx Alcohol Use: No Hx Substance Use: No Preferred Language: Puerto Rican Communication Ability: Effective Hearing Ability: Normal Width Stripper Required: No Beliefs That Will Affect Care: None marital status: Current Living Situation: Significant Other Current Living Situation Comment: Sebastián current occupational status: unemployed and disabled How many Children do You have: 2 Feels Safe at Home: Yes Childhood Exposure to Second-Hand Smoke: Yes Diet: regular during the past year weight has: decreased > 10 lbs Dental Care, Regularly: No Physical Activity Frequency: 3-4 Times per Week Seatbelt Use: always Sunscreen Use: Yes Assistive Devices: Denture - Upper, Denture - Lower, Glasses, Oxygen - Continuous and Walker Review of Systems 2 Review of Systems: All systems reviewed & are unremarkable except as noted in HPI & below Physical Exam 2 Physical Exam: VITALS: Reviewed. WEIGHT/BMI reviewed. GEN: Malnourished, cachectic, chronically ill woman lying in bed in no apparent distress. PSYCH: Good Judgment. AOx3. Normal memory, mood, and affect. HEENT -Head: NC/AT; -Eyes: PERRL, EOMI. No discharge or redn ess; -Ears: External ears are normal.. -Nose: Normal nares. -Mouth and throat: MMM. Normal gums, muc pawan, palate,. Good dentition. NECK: Supple, with no masses. CV: Irregular rate and rhythm. Systolic murmur 2/6 best heard at base. LUNGS: Crackles presented in bilateral lung orellana with diminished lung sounds on left. Chest rise symmetrical. Breathing nonlabored. ABD: Soft, NT/ND, NBS, no masses or organomegaly. : Deferred SKIN: Warm, well perfused. No skin rashes or abnormal lesions. MSK: No deformities, Normal gait. EXT: No clubbing, cyanosis, or edema. NEURO: Normal muscle strength and tone. No focal deficits. Results & Data Results & Data Vital Signs (Past 12 Hours) Vital Signs Temp Pulse Pulse Pulse Resp BP Pulse Ox 11/13/24 11:02 36.7 C 91 H 20 122/59 L 100 11/13/24 08:58 92 H 11/13/24 08:58 11/13/24 07:40 36.7 C 94 H 20 156/72 H 97 11/13/24 06:32 11/13/24 06:20 91 11/13/24 06:19 84 L 11/13/24 02:48 36.9 C 91 H 20 147/68 H 100 11/13/24 01:46 92 H 19 94 11/13/24 01:08 92 H 11/13/24 00:40 92 11/13/24 00:30 11/13/24 00:27 36.6 C 76 18 148/74 H 87 L 11/12/24 23:58 91 H 20 93 O2 Del Method O2 Flow Rate FiO2 11/13/24 11:02 Nasal Cannula 7 11/13/24 08:58 11/13/24 08:58 Nasal Cannula 10 11/13/24 07:40 Nasal Cannula 10 11/13/24 06:32 Oxymask 10 11/13/24 06:20 Oxymask 10 11/13/24 06:19 Nasal Cannula 9 11/13/24 02:48 CPAP 11/13/24 01:46 60 11/13/24 01:08 11/13/24 00:40 Oxymask 13 11/13/24 00:30 Oxymask 10 11/13/24 00:27 Oxymask 13 11/12/24 23:58 Oxymask 10 Laboratory Results 11/13/24 06:16 11/13/24 06:16 Abnormal Lab Results 11/08/24 11/12/24 11/13/24 Unknown 23:24 00:09 WBC 12.72 H RBC 5.15 Hgb 12.2 Hct 39.3 MCV 76.3 L MCH 23.7 L MCHC 31.0 L RDW Std Deviation 54.4 H RDW Coeff of Claudette 21.3 H Plt Count 67 L Immature Gran % (Auto) 1.1 Neut % (Auto) 84.2 Lymph % (Auto) 4.4 Schleicher % (Auto) 10.1 Eos % (Auto) 0.0 Baso % (Auto) 0.2 Neut # (Auto) 10.72 H Lymph # (Auto) 0.56 L Schleicher # (Auto) 1.28 H Eos # (Auto) 0.00 Baso # (Auto) 0.02 Immature Gran # (Auto) 0.14 Absolute Nucleated RBC Nucleated RBC % (auto) Platelet Estimate Polychromasia 1+ Hypochromasia Anisocytosis Present Target Cells Tear Drop Cells Ovalocytes Echinocytes 1+ VBG pH 7.37 VBG pCO2 45 VBG pO2 58 VBG HCO3 26 VBG O2 Saturation 86.9 VBG Base Excess 0.3 Sodium 132 L Potassium 4.1 Chloride 98 Carbon Dioxide 25 Anion Gap 9 BUN 48 H Creatinine 1.30 H Est Cr Clr Drug Dosing 28.2 eGFR 46.21 BUN/Creatinine Ratio 36.9 H Glucose 119 H Lactate 1.6 Calcium 8.5 L Phosphorus Total Bilirubin 2.5 H Direct Bilirubin AST 42 H ALT 75 H Alkaline Phosphatase 241 H Total Protein 5.9 L Total Protein (PEP) Cancelled Albumin 2.7 L Albumin (PEP) Cancelled Globulin 3.2 Albumin/Globulin Ratio 0.8 L Eooad-3-Ioyhwkpbl Cancelled Qpewb-4-Cynklsrul Cancelled Fmnm-4-Dbobdrbj Cancelled Kiha-6-Zkobmcof Cancelled Gamma Globulins Cancelled Monoclonal Peak 3 Cancelled Ser Monoclonl Protein Cancelled Ser Monoclonal Prot 2 Cancelled PEP Interpretation Cancelled Procalcitonin 0.96 H U [place] Light Ch 157.22 H U Free [place] Light Ch 64.09 H U [place]/Lambda 2.45 Fluid Comment 11/13/24 11/13/24 06:16 Unknown WBC 11.42 H RBC 4.63 Hgb 11.2 L Hct 35.5 L MCV 76.7 L MCH 24.2 L MCHC 31.5 L RDW Std Deviation 54.2 H RDW Coeff of Claudette 20.7 H Plt Count 68 L Immature Gran % (Auto) 1.3 Neut % (Auto) 85.6 Lymph % (Auto) 3.9 Schleicher % (Auto) 9.0 Eos % (Auto) 0.0 Baso % (Auto) 0.2 Neut # (Auto) 9.77 H Lymph # (Auto) 0.45 L Schleicher # (Auto) 1.03 H Eos # (Auto) 0.00 Baso # (Auto) 0.02 Immature Gran # (Auto) 0.15 Absolute Nucleated RBC 0.02 Nucleated RBC % (auto) 0.2 Platelet Estimate Decreased L Polychromasia 1+ Hypochromasia Present Anisocytosis Present Target Cells 1+ Tear Drop Cells 1+ Ovalocytes 1+ Echinocytes VBG pH VBG pCO2 VBG pO2 VBG HCO3 VBG O2 Saturation VBG Base Excess Sodium 134 L Potassium 3.8 Chloride 97 L Carbon Dioxide 27 Anion Gap 10 BUN 45 H Creatinine 1.24 H Est Cr Clr Drug Dosing 29.5 eGFR 48.90 BUN/Creatinine Ratio 36.3 H Glucose 104 H Lactate Calcium 9.0 Phosphorus 3.4 Total Bilirubin 3.2 H Direct Bilirubin 1.7 H AST 30 ALT 58 H Alkaline Phosphatase 182 H Total Protein 6.1 Total Protein (PEP) Albumin 3.5 Albumin (PEP) Globulin 2.6 Albumin/Globulin Ratio 1.3 Pmlqs-2-Bbwfweawm Rcrxm-5-Xvgyzeeml Acmi-3-Snskifgy Jzjg-1-Lxwhriwr Gamma Globulins Monoclonal Peak 3 Ser Monoclonl Protein Ser Monoclonal Prot 2 PEP Interpretation Procalcitonin U [place] Light Ch U Free [place] Light Ch U [place]/Lambda Fluid Comment Diagnostic Findings Chest X-Ray 11/12/24 23:17 Exam(s): XR CXR 1 VIEW EXAM: XR Chest, 1 View CLINICAL HISTORY: Reason for exam: increasing oxygen requirement. TECHNIQUE: Frontal view of the chest. COMPARISON: Chest x-ray: 11/07/2024 FINDINGS: Lungs: There is increasing consolidation in the noted throughout the left lower lobe. There is increasing interstitial thickening and ground- glass consolidation in the hypoaerated left upper lobe. There is increased diffuse interstitial thickening noted in the right upper lobe. There is increased interstitial thickening and atelectasis in the right lung base. There are probable bilateral pleural effusions, left greater than right. Pleural space: No pneumothorax. Heart: There is mild to moderate cardiomegaly. Median sternotomy changes are noted. Mediastinum: Unremarkable. Normal mediastinal contour. Bones/joints: See above. IMPRESSION: 1. There is increasing consolidation in the noted throughout the left lower lobe. There is increasing interstitial thickening and ground-glass consolidation in the hypoaerated left upper lobe. There is increased diffuse interstitial thickening noted in the right upper lobe. There is increased interstitial thickening and atelectasis in the right lung base. 2. There are probable bilateral pleural effusions, left greater than right. Electronically signed by: Mark Blackmon MD 11/13/24 00:14 AM Chest X-Ray 11/13/24 10:24 XR chest 1V portable CLINICAL HISTORY: S/P Thoracentesis rule out pneumothorax COMPARISON STUDY: 11/12/2024 FINDINGS: Single view erect chest demonstrates the left pleural effusion has largely been evacuated. There is no pneumothorax. Prominent reticular nodular pulmonary opacities are redemonstrated diffusely involving both lungs. Cardiomegaly persists. Median sternotomy wire sutures are noted. There is mild blunting of the right costophrenic angle with probable adjacent discoid atelectasis. There is patchy airspace opacity in the left lung base suspicious for pneumonia. IMPRESSION: Status post left thoracentesis. No evidence of pneumothorax. Bilateral interstitial opacities remain pronounced. Trace right pleural effusion suspected. Left lower lobe infiltrate present. ACT 112: Negative or not required by law. Electronically signed by: Tiarra Sepulveda M.D. 11/13/2024 10:49 AM PG Care Time/CCT Total # of Minutes Spent Total Time Spent with Patient: Total time spent is greater than 50% in coordination of care (as documented) at patient's floor/unit and/or counseling patient: Coding Level of Care Code 69333 IN/OBS CONSULT LVL 3,45M Diagnoses Pleural effusion J90 Cor pulmonale I27.81 Pulmonary edema J81.1 Centrilobular emphysema J43.2 Emphysema type: centrilobular Hypoxia R09.02 On home oxygen therapy Z99.81
[2024-11-13 11:21] LABS: Appearance Pleural Fluid Cloudy; Color Pleural Fluid Red; RBC Pleural Fluid Auto 59000 /uL; Source Pleural Fluid Left Lung; WBC Pleural Fluid Auto 3173 /uL
--- NOTE | 2024-11-13 11:23 | Hospitalist Progress Note ---
"Date of Service November 13, 2024 Assessment & Plan (1) Bone lesion: (2) Failure to thrive in adult: (3) BRITTNEY (acute kidney injury): (4) HFrEF (heart failure with reduced ejection fraction): Plan This patient is a 64-year-old female with a history of paroxysmal A-fib/flutter, CAD, bioprosthetic AVR, porcine MVR, PSVT, pulmonary HTN, COPD with chronic hypoxic respiratory failure w/ baseline 3 LNC O2, TIA/CVA x 2, HTN, HLD, HFpEF, myoclonus, underweight, severe osteoporosis, depression/anxiety, chronic opioid use, GERD, and hypothyroidism presenting with failure to thrive and an unwitnessed fall. She has had two recent hospitalizations 06/04-06/07 and 08/17-08/24 indicating a decline over the last several months. A more rapid decline over the last several days has occurred. Patient is being worked up for failure to thrive and new finding of osseous lucencies in the setting of BRITTNEY and HFrEF. #Failure to thrive in the adult - patient reports poor appetite, decreased oral intake for the last month. Magnesium has been repleted Dietitianist consult appreciated - diet liberalized, continue protien supplements PT/OT evaluations - rec rehab Oncology has been consulted #BRITTNEY- Improving Baseline Cr 1.4, Cr 2.92 on admission. Likely multifactorial - secondary to decreased oral intake as well as medication effects. Patient on Lisinopril and Spironolactone as an outpatient. She reports she has continued to take her medications. She has mildly elevated Nephrology consult appreciated - brittney improving, resume PO lasix and monitor Linsinopril and spironolactone remain on hold Keppra level on 11/11 ordered, pending #HFrEF/Pleural effusions | Acute on chronic HFpEF - Echocardiogram 08/17/24 with normal LV function, mild LVH, moderate Aortic regurgitation and bioprosthetic mitral valve. Patient appears to be overloaded with edema, JVD, rales, marked elevation of BNP on admissions. Continue Metoprolol Increasing oxygen requirements overnight 11/12 - imaging concerning for worsening pleural effusions. Pulmonology consulted - s/p thoracentesis. Light's criteria suggests transudative effusion. Okay to resume Eliquis tonight. #Skeletal lesions - concerning for multiple myeloma vs. metabolic bone disease vs malignancy (intersing Ca levels are low) Pending SPEP and Urich/Lambda Light Chains in the urine Peripheral blood smear revealed anemia likely secondary to chronic disease versus MEDHAT; leukocytosis unremarkable Oncology consulted - Rec serum protein electrophoresis, 24-hour urine protein electrophoresis, free light chain assay s/p venofer x 1 Discussed with IR for possibility of bone marrow bx - images reviewed and does not look like multiple myeloma, reporting the lesions are very small and look l ramon osteopenia with metabolic issues. Would reccomend repeat CT in 6 months and only consider bx if labs concerning for multiple myeloma Check PTH, Vit D level in AM #Elevated INR | Elevated LFTs| Thrombocytopenia | Paroxysmal atrial fibrillation | CAD Continue Amiodarone 200mg po daily. Eliquis and plavix (hx of TIA/CVA, no stents) While head CT is negative, patient's platelet count continues to drop during this hospital admission with elevated INR Liver US slightly echogenic but not specific, no dilation. LFTs downtrending but T bili increased -suspect hepatic congestion from CHF AM CMP, CBC, Check hepatitis panel #Elevated Troponin: EKG with no acute ischemic changes, significant for a 1st degree block, rightward axis, possible left atrial enlargement. Troponin 167--> 214--> 220 Repeat echo, no significant changes from Echo in 08/2024: Moderate LVH, Mod- severe Aortic Regurg and Tricuspid Regurg, Mild Mitral Stenosis. Increased right ventricular systolic pressure>60mmHg. Noted moderate Right pleural effusion #Hypothyroidism TSH elevated at 6.976 at admission Continue Synthroid Follow up in outpatient #COPD - Continue Trelegy or formulary equivalent, DuoNebs PRN #GERD: Continue Protonix Disposition: Continued stay on PCU, trending labs, weaning oxygen Admission and Anticipated Discharge Date Admission Date: November 08, 2024 Supervising Physician Co-Signing Physician Notes PA Supervision Note: I did not personally see or examine the patient today, but I verified all velasquez points of TERRA Sinclair's assessment and plan with the following exceptions/additions: None Subjective Patient seen after her thoracentesis. Reports that she feels like she is breathing better now. Is unsure what happened last night, just short suddenly felt short of breath. Is feeling a little bit stronger today and does feel like her appetite is maybe slightly improved. We started to talk about CODE STATUS she does not think that she would want intubation however would like more time to think about this. I offered a family meeting and we will continue to discuss. She knows that she was seen by oncology and that further workup is needing to be done Review of Systems Review of Systems: All systems reviewed & are unremarkable except as noted in Subjective Physical Exam Physical Exam: General: no acute distress; lethargic; non-toxic appearing; cachectic; HEENT: normocephalic, atraumatic; no scleral icterus; PERRLA; vision and hearing intact Neck: supple; trachea midline Skin: warm, dry without signs of tenting; no cyanosis; no rashes, bruising, lesions, or erythema noted CV: chest wall NTP; RRR; S1/S2 normal; no murmurs/rubs/gallops; Lungs: no acute respiratory distress; symmetrical chest wall expansion; lung sounds diminished in the bases ABD: MSK: no tics or fasciculations; +1 pitting edema noted in the LEs b/l, nonerythematous; atrophy of muscles; Neuro: A&Ox3; normal mood and affect; fluent speech; no focal deficits; Results & Data Results & Data Vital Signs (Past 12 Hours) Vital Signs Temp Pulse Pulse Pulse Resp BP Pulse Ox 11/13/24 11:02 98.1 F 91 H 20 122/59 L 100 11/13/24 08:58 92 H 11/13/24 08:58 11/13/24 07:40 98.1 F 94 H 20 156/72 H 97 11/13/24 06:32 11/13/24 06:20 91 11/13/24 06:19 84 L 11/13/24 02:48 98.4 F 91 H 20 147/68 H 100 11/13/24 01:46 92 H 19 94 11/13/24 01:08 92 H 11/13/24 00:40 92 11/13/24 00:30 11/13/24 00:27 97.9 F 76 18 148/74 H 87 L 11/12/24 23:58 91 H 20 93 O2 Del Method O2 Flow Rate FiO2 11/13/24 11:02 Nasal Cannula 7 11/13/24 08:58 11/13/24 08:58 Nasal Cannula 10 11/13/24 07:40 Nasal Cannula 10 11/13/24 06:32 Oxymask 10 11/13/24 06:20 Oxymask 10 11/13/24 06:19 Nasal Cannula 9 11/13/24 02:48 CPAP 11/13/24 01:46 60 11/13/24 01:08 11/13/24 00:40 Oxymask 13 11/13/24 00:30 Oxymask 10 11/13/24 00:27 Oxymask 13 11/12/24 23:58 Oxymask 10 Laboratory Results CBC added chemistry reviewed Pro-Justo Reviewed Diagnostic Findings cxr reviewed PG Care Time/CCT Total # of Minutes Spent Total Time Spent with Patient: Total time spent is greater than 50% in coordination of care (as documented) at patient's floor/unit and/or counseling patient: Coding Level of Care Code 95436 SUB INP/OBS CARE 3/50MIN Diagnoses Bone lesion M89.9 Failure to thrive in adult R62.7 BRITTNEY (acute kidney injury) N17.9 HFrEF (heart failure with reduced ejection fraction) I50.20"
[2024-11-13 11:59] LABS: Lymphocytes, Fluid 8 %; Mono,Macrophage,Mesothelial 8 %; Neutrophils, Fluid 84 %
[2024-11-13] MEDS: PIPERACILLIN/TAZOBACTAM 4.5 GM/100 ML BAG IV SCH (13:02)
[2024-11-13] MEDS: APIXABAN 5 MG TABLET PO SCH (20:19)
[2024-11-14 06:28] LABS: Hematocrit (blood only) 33.5 % (37.0-47.0); Hemoglobin 10.4 g/dl (12.0-16.0); Mean Corpuscular Hemoglobin 23.8 pg (25.0-34.0); Mean Corpuscular Volume 76.7 fL (80.0-100.0); Platelet Count 81 K/uL (130-400); RDW Standard Deviation 53.3 fL (36.4-46.3); Red Blood Count 4.37 M/uL (4.20-5.40); White Blood Count 9.91 K/ul (4.8-10.8)
[2024-11-14 06:55] LABS: Anisocytosis Present; Hypochromasia Present; Immature Granulocytes # (auto) 0.31 K/uL (0.01-0.20); Immature Granulocytes % (auto) 3.1 %; Polychromasia 1+; Target Cells 1+
[2024-11-14 07:08] LABS: Alanine Aminotransferase 38.0 U/L (7-52); Albumin Globulin Ratio 1.2 (0.9-2); Alkaline Phosphatase 157.0 U/L (34-104); Anion Gap 9.0 (3-11); Bilirubin,Total 2.2 mg/dl (0.2-1.0); Blood Urea Nitrogen 30.0 mg/dl (6-23); Calcium 8.3 mg/dl (8.6-10.3); Carbon Dioxide 31.0 mmol/L (21-32); Chloride 96.0 mmol/L (98-107); Creatinine Clr Calc Pharmacy 42.9 ml/min; Globulin 2.5 gm/dl (2.5-4.0); Glucose 93.0 mg/dl (70-99(Fasting)); Potassium 3.0 mmol/L (3.5-5.1); Sodium 136.0 mmol/L (136-145); Total Protein 5.4 gm/dl (6.0-8.3)
[2024-11-14] MEDS: POTASSIUM CHLORIDE CRTAB 20 MEQ TABCR PO SCH (09:33)
--- NOTE | 2024-11-14 10:47 | Nephrology Progress Note ---
Date of Service November 14, 2024 Assessment & Plan (1) BRITTNEY (acute kidney injury): (2) Bone lesion: (3) Failure to thrive in adult: (4) HFrEF (heart failure with reduced ejection fraction): (5) Fall: (6) Cor pulmonale: Plan 64 year-old F with with complex PMH including paroxysmal A-fib/flutter, CAD, aortic valve repair 2005 with moderate to severe aortic regurgitation, porcine MVR, moderate to severe TR, right heart failure, pulmonary HTN, advanced COPD with chronic hypoxic respiratory failure on 2 LNC O2, TIA/CVA x 2, HTN, HLD, HFimpEF, moderate concentric LVH, osteoporosis, MASOUD/MDD, chronic opioid use, GERD, and hypothyroidism, admitted on 11/07/24 with with generalized weakness, FTT, BRITTNEY and s/p fall at home. She has had two recent hospitalizations (June and July both with acute on chronic CHF). Has been having progressive overall decline in health as well as worsening frailty over the course of the past 6-7 months with poor appetite, nausea/vomiting, weight loss, myoclonus, generalized weakness, and significant reduced activity tolerance. A more rapid decline was noted for several days prior to admission. CT demonstrating multiple small osseous lucencies concerning for severe osteoporosis versus myeloma versus metastatic lesion. Echo showed moderate to severe aortic regurgitation and moderate to severe tricuspid regurgitation. RVSP >60. On admission cr was 2.9 mg/dl with stage 3B CKD, b/l cr ~1.4 mg/dL. Also had mild hyperkalemia and hyponatremia. She was on lisinopril, spironolactone and Jardiance which was started in August 2024, has been on hold since admission. No anemia, hypercalcemia but has significant hypoalbuminemia, prior urine analysis was bland with acellular microscopy. Kidneys are relatively normal on imaging but calcific vascular disease is appreciated on CT involving the abdominal aorta and renal arteries. Kidney function improved, creatinine down to 0.9 mg/dl this morning. Blood pressure has been slightly elevated. Decent urine output. --change Lasix to 20 mg daily. Continue to monitor intake and output, aim to keep net negative. Will sign off.. Admission and Anticipated Discharge Date Admission Date: November 08, 2024 Marilou Rodriguez was seen and evaluated this morning. She denies any symptoms and reports better p.o. intake. Blood pressure elevated. Kidney function continue to improve and creatinine down to 0.9 mg/dl, K was low at 3.0. Reports decent urine output. Review of Systems Review of Systems: Detailed review of system was otherwise unremarkable except mentioned above. Physical Exam Constitutional: WD/WN, vitals as above + ill appearing and + cachectic; no acute distress Respiratory: Auscultation: + diminished lung sounds and + crackles Cardiovascular: Rate/Rhythm: regular rate and regular rhythm Heart Sounds: + murmur Extremities: + edema (1+ b/l LE edema) Skin: no rashes, warm and dry Neurologic: no focal motor deficits Psychiatric: Orientation: alert and oriented x 3 Affect: + depressed affect Results & Data Vital Signs (Past 12 Hours) Vital Signs Temp Pulse Pulse Resp BP Pulse Ox O2 Del Method 11/14/24 09:00 82 11/14/24 09:00 Nasal Cannula 11/14/24 08:13 36.6 C 83 18 143/86 H 100 Nasal Cannula 11/14/24 02:29 36.7 C 80 20 123/66 94 Nasal Cannula O2 Flow Rate 11/14/24 09:00 11/14/24 09:00 3 11/14/24 08:13 4 11/14/24 02:29 5 PG Care Time/CCT Total # of Minutes Spent Total Time Spent with Patient: Total time spent is greater than 50% in coordination of care (as documented) at patient's floor/unit and/or counseling patient: Coding Level of Care Code 54657 SUB INP/OBS CARE 2/35MIN Diagnoses BRITTNEY (acute kidney injury) N17.9 Bone lesion M89.9 Failure to thrive in adult R62.7 HFrEF (heart failure with reduced ejection fraction) I50.20 Fall W19.XXXA Cor pulmonale I27.81
--- NOTE | 2024-11-14 11:09 | Pulmonology Progress Note ---
Date of Service November 14, 2024 Assessment & Plan (1) Pleural effusion: (2) Cor pulmonale: (3) Pulmonary edema: (4) Emphysema/COPD: Emphysema type: centrilobular Qualified Code(s): J43.2 - Centrilobular emphysema (5) Hypoxia: (6) On home oxygen therapy: Plan Jennifer Morrison is a 64-year-old female with past medical history of atrial fibrillation on Eliquis, CAD on plavix, bioprosthetic AVR, porcine MVR, paroxysmal supraventricular tachycardia, pulmonary hypertension, COPD, chronic hypoxic respiratory failure who wears 3 liters nasal cannula at baseline, TIA/CVA, HTN, HLD, depression, anxiety, GERD, hypothyroidism, and failure to thrive; who presented to [facility] ED on 11/08/2024 with generalized weakness and unfortunately suffered an unwitnessed fall at home with a 2.5 hr downtime with worsening hypoxia and left pleural effusion in setting of likely heart failure exacerbation with possible undiagnosed malignancy. Recommendations: 1. Pleural effusion: Status postthoracentesis. Fluid failures borderline exudative and consistent with an acute inflammatory process. Cultures are negative and he does not appear consistent with empyema. Serositis is a possible etiology. May be secondary to kidney issues. 2. Hypoxemia: Continue to wean oxygen as tolerated. 3. Pulmonary hypertension: Multifactorial. At this point in time the patient is fluid overloaded and continue diuretics are recommended as tolerated by kidney function. Repeat echo in 6 months once euvolemic 4. Presumed COPD: Continue Anoro and Arnuity. Transition back to Trelegy in the outpatient setting. Patient appears significantly improved at this point time. Pulmonary will sign off. Feel free to contact us with questions or concerns Admission and Anticipated Discharge Date Admission Date: November 08, 2024 Subjective Patient seen and examined. EMR reviewed. The patient is awake alert and conversant sitting up in a chair. She states she feels better after the thoracentesis. She is not really coughing or expectorating phlegm. She denies any chest pain or palpitations. No fevers chills or night sweats overnight. Review of Systems 2 Review of Systems: All systems reviewed & are unremarkable except as noted in Subjective Physical Exam 2 Constitutional: + cachectic and + frail appearing Neck: trachea midline, no thyromegaly Respiratory: normal respiratory effort, lungs clear to auscultation Cardiovascular: RRR, no murmur, no edema Gastrointestinal (Abdomen): normal bowel sounds, soft, nontender, no hepatosplenomegaly Musculoskeletal: Extremities: extremities normal to inspection Skin: no rashes, warm and dry Neurologic: Nonfocal exam Lymphatic: no cervical lymphadenopathy Results & Data Results & Data Vital Signs (Past 12 Hours) Vital Signs Temp Pulse Pulse Resp BP Pulse Ox O2 Del Method 11/14/24 09:00 82 11/14/24 09:00 Nasal Cannula 11/14/24 08:13 36.6 C 83 18 143/86 H 100 Nasal Cannula 11/14/24 02:29 36.7 C 80 20 123/66 94 Nasal Cannula O2 Flow Rate 11/14/24 09:00 11/14/24 09:00 3 11/14/24 08:13 4 11/14/24 02:29 5 Laboratory Results 11/14/24 06:13 11/14/24 06:13 Pleural fluid studies: Differential: 84% neutrophils, 8% lymphocytes, 8% mesothelial cells Cytology unremarkable, acute inflammation pH 7.37 Total protein less than 3 LDH 252 Glucose 111 Gram stain and culture with white blood cells but no organism, culture pending AFB stains and culture negative to date Diagnostic Findings Postthoracentesis chest x-ray was independently reviewed from yesterday. Lungs are well-expanded. There is trivial residual fluid on the left. No pneumothorax PG Care Time/CCT Total # of Minutes Spent Total Time Spent with Patient: Total time spent is greater than 50% in coordination of care (as documented) at patient's floor/unit and/or counseling patient: Coding Level of Care Code 18228 SUB INP/OBS CARE 2/35MIN Diagnoses Pleural effusion J90 Cor pulmonale I27.81 Pulmonary edema J81.1 Centrilobular emphysema J43.2 Emphysema type: centrilobular Hypoxia R09.02 On home oxygen therapy Z99.81
--- NOTE | 2024-11-14 12:40 | Hospitalist Progress Note ---
"Date of Service November 14, 2024 Assessment & Plan (1) Bone lesion: (2) Failure to thrive in adult: (3) BRITTNEY (acute kidney injury): (4) HFrEF (heart failure with reduced ejection fraction): Plan This patient is a 64-year-old female with a history of paroxysmal A-fib/flutter, CAD, bioprosthetic AVR, porcine MVR, PSVT, pulmonary HTN, COPD with chronic hypoxic respiratory failure w/ baseline 3 LNC O2, TIA/CVA x 2, HTN, HLD, HFpEF, myoclonus, underweight, severe osteoporosis, depression/anxiety, chronic opioid use, GERD, and hypothyroidism presenting with failure to thrive and an unwitnessed fall. She has had two recent hospitalizations 06/04-06/07 and 08/17-08/24 indicating a decline over the last several months. A more rapid decline over the last several days has occurred. Patient is being worked up for failure to thrive and new finding of osseous lucencies in the setting of BRITTNEY and HFrEF. #Failure to thrive in the adult - patient reports poor appetite, decreased oral intake for the last month. Dieticians consult appreciated - diet liberalized, MVI added, continue protein supplements PT/OT evaluations - rec rehab #BRITTNEY- Resolved Baseline Cr 1.4, Cr 2.92 on admission. Likely multifactorial - secondary to decreased oral intake as well as medication effects. Patient on Lisinopril and Spironolactone as an outpatient. She reports she has continued to take her medications. She has mildly elevated Nephrology consult appreciated - brittney improving, resume PO lasix at 20mg daily. Discussed resuming spironolactone and monitoring and potentially resuming lisinopril in the next few days. Keppra level 11/11 elevated 97.5 - dose has been reduced, recheck outpatient #HFrEF/Pleural effusions | Acute on chronic HFpEF - Echocardiogram 08/17/24 with normal LV function, mild LVH, moderate Aortic regurgitation and bioprosthetic mitral valve. Patient appears to be overloaded with edema, JVD, rales, marked elevation of BNP on admissions. Increasing oxygen requirements overnight 11/12 - imaging concerning for worsening pleural effusions. Pulmonology consulted - s/p thoracentesis. Light's criteria suggests transudative effusion. Thora pathology negative for malignancy. Deescalate zosyn to augmentin Eliquis resumed, continue metoprolol. Diuretics as above. #Skeletal lesions - concerning for multiple myeloma vs. metabolic bone disease vs malignancy (interesting Ca levels are low) Peripheral blood smear revealed anemia likely secondary to chronic disease versus MEDHAT; leukocytosis unremarkable Oncology consulted - Rec serum protein electrophoresis, 24-hour urine protein electrophoresis, free light chain assay - PENDING s/p venofer x 1. PTH/ Vit D WNL Discussed with IR for possibility of bone marrow bx - images reviewed and does not look like multiple myeloma, reporting the lesions are very small and look like osteopenia with metabolic issues. Would recommend repeat CT in 6 months and only consider bx if labs concerning for multiple myeloma Recently started on abalparatide for osteoporosis - rec continue at discharge #Elevated INR | Elevated LFTs| Thrombocytopenia | Paroxysmal atrial fibrillation | CAD Continue Amiodarone 200mg po daily. Eliquis and plavix (hx of TIA/CVA, no stents) Liver US slightly echogenic but not specific, no dilation. LFTs/Bili downtrending -suspect hepatic congestion from CHF hepatitis panel pending AM CMP #Elevated Troponin: EKG with no acute ischemic changes, significant for a 1st degree block, rightward axis, possible left atrial enlargement. Troponin 167--> 214--> 220 Repeat echo, no significant changes from Echo in 08/2024: Moderate LVH, Mod- severe Aortic Regurg and Tricuspid Regurg, Mild Mitral Stenosis. Increased right ventricular systolic pressure>60mmHg. Noted moderate Right pleural effusion #Hypothyroidism TSH elevated at 6.976 at admission, Continue Synthroid Follow up in outpatient #COPD - Continue Trelegy or formulary equivalent, DuoNebs PRN #GERD: Continue Protonix Disposition: Continued stay on PCU, trending labs, oxygen needs are decreasing plan to apply for insurance autherization for rehab Admission and Anticipated Discharge Date Admission Date: November 08, 2024 Supervising Physician Co-Signing Physician Notes PA Supervision Note: I did not personally see or examine the patient today, but I verified all velasquez points of TERRA Sinclair's assessment and plan with the following exceptions/additions: None Subjective Patient seen sitting up in the chair - starting to feel alittle bit better. Appetite is slowly improving Discussed results of her testing and lower concern for cancer. thinks she was recently started on a medication for osteoporosis but unsure of the name Tele - SR 70-80s Review of Systems Review of Systems: All systems reviewed & are unremarkable except as noted in Subjective Physical Exam Physical Exam: General: no acute distress; lethargic; non-toxic appearing; cachectic; more alert than prior days HEENT: normocephalic, atraumatic; no scleral icterus; PERRLA; vision and hearing intact Neck: supple; trachea midline Skin: warm, dry without signs of tenting; no cyanosis; no rashes, bruising, lesions, or erythema noted CV: chest wall NTP; RRR; S1/S2 normal; no murmurs/rubs/gallops; Lungs: no acute respiratory distress; symmetrical chest wall expansion; lung sounds diminished in the bases ABD: MSK: no tics or fasciculations; no edema noted in the LEs b/l, nonerythematous; atrophy of muscles; Neuro: A&Ox3; normal mood and affect; fluent speech; no focal deficits; Results & Data Results & Data Vital Signs (Past 12 Hours) Vital Signs Temp Pulse Pulse Resp BP Pulse Ox O2 Del Method 11/14/24 11:54 98.1 F 91 H 20 108/64 90 Nasal Cannula 11/14/24 09:00 82 11/14/24 09:00 Nasal Cannula 11/14/24 08:13 97.9 F 83 18 143/86 H 100 Nasal Cannula 11/14/24 02:29 98.1 F 80 20 123/66 94 Nasal Cannula O2 Flow Rate 11/14/24 11:54 3 11/14/24 09:00 11/14/24 09:00 3 11/14/24 08:13 4 11/14/24 02:29 5 Laboratory Results cbc and chemistry reviewed PG Care Time/CCT Total # of Minutes Spent Total Time Spent with Patient: Total time spent is greater than 50% in coordination of care (as documented) at patient's floor/unit and/or counseling patient: Coding Level of Care Code 63782 SUB INP/OBS CARE 3/50MIN Diagnoses Bone lesion M89.9 Failure to thrive in adult R62.7 BRITTNEY (acute kidney injury) N17.9 HFrEF (heart failure with reduced ejection fraction) I50.20"
[2024-11-14 14:16] LABS: Levetiracetam Keppra 97.5 mcg/mL (6.0-46.0); eGFR 24.0 (>=60)
[2024-11-14] MEDS: AMOXICILLIN/CLAVULANATE 875 MG TAB PO SCH (17:27)
[2024-11-14] MEDS: CEROVITE ADV FORMULA TAB PO SCH (17:28)
[2024-11-15 07:01] LABS: Anion Gap 7.0 (3-11); Blood Urea Nitrogen 24.0 mg/dl (6-23); Calcium 8.6 mg/dl (8.6-10.3); Carbon Dioxide 34.0 mmol/L (21-32); Chloride 97.0 mmol/L (98-107); Creatinine Clr Calc Pharmacy 43.7 ml/min; Glucose 80.0 mg/dl (70-99(Fasting)); Potassium 4.0 mmol/L (3.5-5.1); Sodium 138.0 mmol/L (136-145)
[2024-11-15 07:03] LABS: Anisocytosis Present; Hematocrit (blood only) 35.1 % (37.0-47.0); Hemoglobin 10.5 g/dl (12.0-16.0); Immature Granulocytes # (auto) 0.36 K/uL (0.01-0.20); Immature Granulocytes % (auto) 4.1 %; Mean Corpuscular Hemoglobin 23.5 pg (25.0-34.0); Mean Corpuscular Volume 78.5 fL (80.0-100.0); Platelet Count 96 K/uL (130-400); Polychromasia 1+; RDW Standard Deviation 55.1 fL (36.4-46.3); Red Blood Count 4.47 M/uL (4.20-5.40); Target Cells 1+; White Blood Count 8.76 K/ul (4.8-10.8)
[2024-11-15] MEDS: FUROSEMIDE 20 MG TAB PO SCH (08:46)
[2024-11-15] MEDS: SPIRONOLACTONE 25 MG TAB PO SCH (08:47)
[2024-11-15 11:24] LABS: Hep B Surface Ag with confirm Negative (Negative)
[2024-11-15 11:30] LABS: Hep C Ab Rflx HepCQuant RNA Negative (Negative)
[2024-11-15] MEDS: LIDOCAINE 5% 1 PATCH TD STA (13:30)
--- NOTE | 2024-11-15 16:29 | Hospitalist Progress Note ---
"Date of Service November 15, 2024 Assessment & Plan (1) Bone lesion: (2) Failure to thrive in adult: (3) BRITTNEY (acute kidney injury): (4) HFrEF (heart failure with reduced ejection fraction): Plan This patient is a 64-year-old female with a history of paroxysmal A-fib/flutter, CAD, bioprosthetic AVR, porcine MVR, PSVT, pulmonary HTN, COPD with chronic hypoxic respiratory failure w/ baseline 3 LNC O2, TIA/CVA x 2, HTN, HLD, HFpEF, myoclonus, underweight, severe osteoporosis, depression/anxiety, chronic opioid use, GERD, and hypothyroidism presenting with failure to thrive and an unwitnessed fall. She has had two recent hospitalizations 06/04-06/07 and 08/17-08/24 indicating a decline over the last several months. A more rapid decline over the last several days has occurred. Patient is being worked up for failure to thrive and new finding of osseous lucencies in the setting of BRITTNEY and HFrEF. #Failure to thrive in the adult - patient reports poor appetite, decreased oral intake for the last month. Dieticians consult appreciated - diet liberalized, MVI added, continue protein supplements PT/OT evaluations - rec rehab, auth approved for [facility] but cannot accept until monday #BRITTNEY- Resolved Baseline Cr 1.4, Cr 2.92 on admission. Likely multifactorial - secondary to decreased oral intake as well as medication effects. Patient on Lisinopril and Spironolactone as an outpatient. She reports she has continued to take her medications. She has mildly elevated Nephrology consult appreciated - brittney improving, resume PO lasix at 20mg daily. Discussed resuming spironolactone 11/15 and monitoring and potentially resuming l isinopril in the next few days. Keppra level 11/11 elevated 97.5 - dose has been reduced, recheck outpatient #HFrEF/Pleural effusions | Acute on chronic HFpEF - Echocardiogram 08/17/24 with normal LV function, mild LVH, moderate Aortic regurgitation and bioprosthetic mitral valve. Patient appears to be overloaded with edema, JVD, rales, marked elevation of BNP on admissions. Increasing oxygen requirements overnight 11/12 - imaging concerning for worsening pleural effusions. Pulmonology consulted - s/p thoracentesis. Light's criteria suggests transudative effusion. Thora pathology negative for malignancy. Deescalate zosyn to augmentin Eliquis resumed, continue metoprolol. Diuretics as above. Consider repeat CXR in a few days #Skeletal lesions - concerning for multiple myeloma vs. metabolic bone disease vs malignancy (interesting Ca levels are low) Peripheral blood smear revealed anemia likely secondary to chronic disease versus MEDHAT; leukocytosis unremarkable Oncology consulted - Rec serum protein electrophoresis, 24-hour urine protein electrophoresis, free light chain assay - PENDING s/p venofer x 1. PTH/ Vit D WNL Discussed with IR for possibility of bone marrow bx - images reviewed and does not look like multiple myeloma, reporting the lesions are very small and look like osteopenia with metabolic issues. Would recommend repeat CT in 6 months and only consider bx if labs concerning for multiple myeloma Recently started on abalparatide for osteoporosis - rec continue at discharge #Elevated INR | Elevated LFTs| Thrombocytopenia | Paroxysmal atrial fibrillation | CAD Continue Amiodarone 200mg po daily. Eliquis and plavix (hx of TIA/CVA, no stents) Liver US slightly echogenic but not specific, no dilation. LFTs/Bili downtrending -suspect hepatic congestion from CHF hepatitis panel negative so far AM CMP #Elevated Troponin: EKG with no acute ischemic changes, significant for a 1st degree block, rightward axis, possible left atrial enlargement. Troponin 167--> 214--> 220 Repeat echo, no significant changes from Echo in 08/2024: Moderate LVH, Mod- severe Aortic Regurg and Tricuspid Regurg, Mild Mitral Stenosis. Increased right ventricular systolic pressure>60mmHg. Noted moderate Right pleural effusion #Hypothyroidism TSH elevated at 6.976 at admission, Continue Synthroid Follow up in outpatient #COPD - Continue Trelegy or formulary equivalent, DuoNebs PRN #GERD: Continue Protonix Disposition: Continued stay stable for downgrade to medical. Will need CHF clinic and onc f/u on discharge Admission and Anticipated Discharge Date Admission Date: November 08, 2024 Supervising Physician Co-Signing Physician Notes PA Supervision Note: I did not personally see or examine the patient today, but I verified all velasquez points of TERRA Sinclair's assessment and plan with the following exceptions/additions: None Subjective patient seen earlier this morning - appetite is about the same does feel like her breathing is improving making good urine Tele SR 70-80s Review of Systems Review of Systems: All systems reviewed & are unremarkable except as noted in Subjective Physical Exam Physical Exam: General: no acute distress; lethargic; non-toxic appearing; cachectic; more alert than prior days HEENT: normocephalic, atraumatic; no scleral icterus; PERRLA; vision and hearing intact Neck: supple; trachea midline Skin: warm, dry without signs of tenting; no cyanosis; no rashes, bruising, lesions, or erythema noted CV: chest wall NTP; RRR; S1/S2 normal; no murmurs/rubs/gallops; Lungs: no acute respiratory distress; symmetrical chest wall expansion; lung s ounds diminished in the bases ABD: MSK: no tics or fasciculations; no edema noted in the LEs b/l, nonerythematous; atrophy of muscles; Neuro: A&Ox3; normal mood and affect; fluent speech; no focal deficits; Results & Data Results & Data Vital Signs (Past 12 Hours) Vital Signs Temp Pulse Pulse Resp BP Pulse Ox O2 Del Method 11/15/24 15:53 97.5 F L 78 18 118/61 95 Nasal Cannula 11/15/24 14:55 85 11/15/24 11:47 97.3 F L 80 18 127/69 100 Nasal Cannula 11/15/24 09:22 75 11/15/24 08:55 Nasal Cannula 11/15/24 07:51 97.5 F L 77 16 118/58 L 94 Nasal Cannula O2 Flow Rate 11/15/24 15:53 3 11/15/24 14:55 11/15/24 11:47 3 11/15/24 09:22 11/15/24 08:55 3 11/15/24 07:51 3 Laboratory Results cbc and chemistry reviewed PG Care Time/CCT Total # of Minutes Spent Total Time Spent with Patient: Total time spent is greater than 50% in coordination of care (as documented) at patient's floor/unit and/or counseling patient: Coding Level of Care Code 48066 SUB INP/OBS CARE 2/35MIN Diagnoses Bone lesion M89.9 Failure to thrive in adult R62.7 BRITTNEY (acute kidney injury) N17.9 HFrEF (heart failure with reduced ejection fraction) I50.20"
[2024-11-15] MEDS: REMOVE LIDODERM PATCH SCH (21:15)
[2024-11-15] MEDS: ATORVASTATIN 40 MG TAB PO SCH (23:24)
[2024-11-16 07:24] LABS: Hematocrit (blood only) 38.0 % (37.0-47.0); Hemoglobin 11.4 g/dl (12.0-16.0); Mean Corpuscular Hemoglobin 24.0 pg (25.0-34.0); Mean Corpuscular Volume 80.0 fL (80.0-100.0); Platelet Count 127 K/uL (130-400); RDW Standard Deviation 55.4 fL (36.4-46.3); Red Blood Count 4.75 M/uL (4.20-5.40); White Blood Count 11.17 K/ul (4.8-10.8)
[2024-11-16 07:33] LABS: Anion Gap 8.0 (3-11); Bilirubin,Total 1.5 mg/dl (0.2-1.0); Calcium 9.0 mg/dl (8.6-10.3); Carbon Dioxide 30.0 mmol/L (21-32); Chloride 97.0 mmol/L (98-107); Potassium 4.8 mmol/L (3.5-5.1); Sodium 135.0 mmol/L (136-145)
[2024-11-16 07:39] LABS: Alanine Aminotransferase 24.0 U/L (7-52); Albumin Globulin Ratio 1.1 (0.9-2); Alkaline Phosphatase 153.0 U/L (34-104); Blood Urea Nitrogen 27.0 mg/dl (6-23); Creatinine Clr Calc Pharmacy 43.2 ml/min; Globulin 2.9 gm/dl (2.5-4.0); Glucose 88.0 mg/dl (70-99(Fasting)); Total Protein 6.0 gm/dl (6.0-8.3)
[2024-11-16] MEDS: IRON SUCROSE 300 MG in SODIUM CHLORIDE 0.9% 250 ML IV SCH (10:05)
--- NOTE | 2024-11-16 11:12 | Hospitalist Progress Note ---
"Date of Service November 16, 2024 Assessment & Plan (1) Bone lesion: (2) Failure to thrive in adult: (3) BRITTNEY (acute kidney injury): (4) HFrEF (heart failure with reduced ejection fraction): Plan This patient is a 64-year-old female with a history of paroxysmal A-fib/flutter, CAD, bioprosthetic AVR, porcine MVR, PSVT, pulmonary HTN, COPD with chronic hypoxic respiratory failure w/ baseline 3 LNC O2, TIA/CVA x 2, HTN, HLD, HFpEF, myoclonus, underweight, severe osteoporosis, depression/anxiety, chronic opioid use, GERD, and hypothyroidism presenting with failure to thrive and an unwitnessed fall. She has had two recent hospitalizations 06/04-06/07 and 08/17-08/24 indicating a decline over the last several months. A more rapid decline over the last several days has occurred. Patient is being worked up for failure to thrive and new finding of osseous lucencies in the setting of BRITTNEY and HFrEF. #Failure to thrive in the adult - patient reports poor appetite, decreased oral intake for the last month. Dieticians consult appreciated - diet liberalized, MVI added, continue protein supplements PT/OT evaluations - rec rehab, auth approved for [facility] but cannot accept until monday #BRITTNEY- Resolved Baseline Cr 1.4, Cr 2.92 on admission. Likely multifactorial - secondary to decreased oral intake as well as medication effects. Patient on Lisinopril and Spironolactone as an outpatient. She reports she has continued to take her medications. She has mildly elevated Nephrology consult appreciated - brittney improving, resume PO lasix at 20mg daily. Discussed resuming spironolactone 11/15 and monitoring and potentially resuming l isinopril in the next few days. Keppra level 11/11 elevated 97.5 - dose has been reduced, recheck outpatient #HFrEF/Pleural effusions | Acute on chronic HFpEF - Echocardiogram 08/17/24 with normal LV function, mild LVH, moderate Aortic regurgitation and bioprosthetic mitral valve. Patient appears to be overloaded with edema, JVD, rales, marked elevation of BNP on admissions. Increasing oxygen requirements overnight 11/12 - imaging concerning for worsening pleural effusions. Pulmonology consulted - s/p thoracentesis. Light's criteria suggests transudative effusion. Thora pathology negative for malignancy. Deescalate zosyn to augmentin Eliquis resumed, continue metoprolol. Diuretics as above. Consider repeat CXR in a few days #Skeletal lesions - concerning for multiple myeloma vs. metabolic bone disease vs malignancy (interesting Ca levels are low) Peripheral blood smear revealed anemia likely secondary to chronic disease versus MEDHAT; leukocytosis unremarkable Oncology consulted - Rec serum protein electrophoresis, 24-hour urine protein electrophoresis, free light chain assay - PENDING s/p venofer x 1. PTH/ Vit D WNL Discussed with IR for possibility of bone marrow bx - images reviewed and does not look like multiple myeloma, reporting the lesions are very small and look like osteopenia with metabolic issues. Would recommend repeat CT in 6 months and only consider bx if labs concerning for multiple myeloma Recently started on abalparatide for osteoporosis - rec continue at discharge slight leukocytosis today - no infectious symptoms. Will give venofer x2 more doses #Elevated INR | Elevated LFTs| Thrombocytopenia | Paroxysmal atrial fibrillation | CAD Continue Amiodarone 200mg po daily. Eliquis and plavix (hx of TIA/CVA, no stents) Liver US slightly echogenic but not specific, no dilation. LFTs/Bili downtrending -suspect hepatic congestion from CHF hepatitis panel negative so far AM CMP #Elevated Troponin: EKG with no acute ischemic changes, significant for a 1st degree block, rightward axis, possible left atrial enlargement. Troponin 167--> 214--> 220 Repeat echo, no significant changes from Echo in 08/2024: Moderate LVH, Mod- severe Aortic Regurg and Tricuspid Regurg, Mild Mitral Stenosis. Increased right ventricular systolic pressure>60mmHg. Noted moderate Right pleural effusion #Hypothyroidism TSH elevated at 6.976 at admission, Continue Synthroid Follow up in outpatient #COPD - Continue Trelegy or formulary equivalent, DuoNebs PRN #GERD: Continue Protonix Disposition: Continued stay Will need CHF clinic and onc f/u on discharge Admission and Anticipated Discharge Date Admission Date: November 08, 2024 Supervising Physician Co-Signing Physician Notes PA Supervision Note: I did not personally see or examine the patient today, but I verified all velasquez points of TERRA Sinclair's assessment and plan with the following exceptions/additions: None Subjective Patient seen resting in bed, reoprts feeling okay today no illness symptoms - cough, cold, congestion urinatirng okay. appetite is okay Review of Systems Review of Systems: All systems reviewed & are unremarkable except as noted in Subjective Physical Exam Physical Exam: General: no acute distress; lethargic; non-toxic appearing; cachectic; HEENT: normocephalic, atraumatic; no scleral icterus; PERRLA; vision and hearing intact Neck: supple; trachea midline Skin: warm, dry without signs of tenting; no cyanosis; no rashes, bruising, lesions, or erythema noted CV: chest wall NTP; RRR; S1/S2 normal; no murmurs/rubs/gallops; Lungs: no acute respiratory distress; symmetrical chest wall expansion; lung sounds diminished in the bases ABD: MSK: no tics or fasciculations; no edema noted in the LEs b/l, nonerythematous; atrophy of muscles; Neuro: A&Ox3; normal mood and affect; fluent speech; no focal deficits; Results & Data Results & Data Vital Signs (Past 12 Hours) Vital Signs Temp Pulse Resp BP Pulse Ox O2 Del Method 11/16/24 07:40 97.5 F L 62 16 94/57 L 95 Room Air Laboratory Results cbc and chemistry reviewed PG Care Time/CCT Total # of Minutes Spent Total Time Spent with Patient: Total time spent is greater than 50% in coordination of care (as documented) at patient's floor/unit and/or counseling patient: Coding Level of Care Code 47066 SUB INP/OBS CARE 2/35MIN Diagnoses Bone lesion M89.9 Failure to thrive in adult R62.7 BRITTNEY (acute kidney injury) N17.9 HFrEF (heart failure with reduced ejection fraction) I50.20"
[2024-11-17 07:12] LABS: Hematocrit (blood only) 38.2 % (37.0-47.0); Hemoglobin 11.1 g/dl (12.0-16.0); Mean Corpuscular Hemoglobin 24.0 pg (25.0-34.0); Mean Corpuscular Volume 82.7 fL (80.0-100.0); Platelet Count 160 K/uL (130-400); RDW Standard Deviation 60.8 fL (36.4-46.3); Red Blood Count 4.62 M/uL (4.20-5.40); White Blood Count 13.76 K/ul (4.8-10.8)
[2024-11-17 07:15] LABS: Anisocytosis Present; Immature Granulocytes # (auto) 0.34 K/uL (0.01-0.20); Immature Granulocytes % (auto) 2.5 %; Ovalocytes 1+; Polychromasia 1+; Target Cells 1+
[2024-11-17 07:31] LABS: Alanine Aminotransferase 21.0 U/L (7-52); Albumin Globulin Ratio 1.0 (0.9-2); Alkaline Phosphatase 161.0 U/L (34-104); Anion Gap 7.0 (3-11); Bilirubin,Total 1.3 mg/dl (0.2-1.0); Blood Urea Nitrogen 24.0 mg/dl (6-23); Calcium 9.1 mg/dl (8.6-10.3); Carbon Dioxide 34.0 mmol/L (21-32); Chloride 94.0 mmol/L (98-107); Creatinine Clr Calc Pharmacy 44.6 ml/min; Globulin 3.1 gm/dl (2.5-4.0); Glucose 84.0 mg/dl (70-99(Fasting)); Potassium 4.2 mmol/L (3.5-5.1); Sodium 135.0 mmol/L (136-145); Total Protein 6.2 gm/dl (6.0-8.3)
--- NOTE | 2024-11-17 09:50 | XRay Report ---
Clinical History: Recheck effusions Technique: PA and lateral views of the chest were obtained Comparison is made to the prior examination dated 11/13/2024 Findings: Again seen are extensive interstitial opacities throughout both lungs, slightly worsened. There is new alveolar opacity in the left lower lobe. The heart size is at the upper limit of normal. No definite pneumothorax is seen. There are increased small bilateral pleural effusions No fracture is noted. Sternal wires are present Impression: 1. Increased small bilateral pleural effusions 2. New left lower lobe opacity that may be due to pneumonia 3. Slightly worsened extensive diffuse interstitial opacities that could be due to atypical pneumonia or a combination of pneumonia and chronic interstitial lung disease ACT 112: Positive. There are findings on this exam that require communication between the performing entity and the patient following Patient Test Result Information Act ([place] ACT 112) guidelines. Electronically signed by Christiano Robles 11-17-2024 09:50 AM
--- NOTE | 2024-11-17 11:45 | Hospitalist Progress Note ---
"Date of Service November 17, 2024 Assessment & Plan (1) Bone lesion: (2) Failure to thrive in adult: (3) BRITTNEY (acute kidney injury): (4) HFrEF (heart failure with reduced ejection fraction): Plan This patient is a 64-year-old female with a history of paroxysmal A-fib/flutter, CAD, bioprosthetic AVR, porcine MVR, PSVT, pulmonary HTN, COPD with chronic hypoxic respiratory failure w/ baseline 3 LNC O2, TIA/CVA x 2, HTN, HLD, HFpEF, myoclonus, underweight, severe osteoporosis, depression/anxiety, chronic opioid use, GERD, and hypothyroidism presenting with failure to thrive and an unwitnessed fall. She has had two recent hospitalizations 06/04-06/07 and 08/17-08/24 indicating a decline over the last several months. A more rapid decline over the last several days has occurred. Patient is being worked up for failure to thrive and new finding of osseous lucencies in the setting of BRITTNEY and acute on chronic HFrEF with large left pleural effusion #Failure to thrive in the adult - patient reports poor appetite, decreased oral intake for the last month. Dieticians consult appreciated - diet liberalized, MVI added, continue protein supplements PT/OT evaluations - rec rehab, auth approved for [facility] but cannot accept until monday #BRITTNEY- Resolved Baseline Cr 1.4, Cr 2.92 on admission. Likely multifactorial - secondary to decreased oral intake as well as medication effects. Patient on Lisinopril and Spironolactone as an outpatient. She reports she has continued to take her medications. She has mildly elevated Nephrology consult appreciated - brittney improving, resume PO lasix at 20mg daily. Discussed resuming spironolactone 11/15 and monitoring and potentially resuming lisinopril in the next few days. Keppra level 11/11 elevated 97.5 - dose has been reduced, recheck outpatient #HFrEF/Pleural effusions | Acute on chronic HFpEF - Echocardiogram 08/17/24 with normal LV function, mild LVH, moderate Aortic regurgitation and bioprosthetic mitral valve. Patient appears to be overloaded with edema, JVD, rales, marked elevation of BNP on admissions. Increasing oxygen requirements overnight 11/12 - imaging concerning for worsening pleural effusions. Pulmonology consulted - s/p thoracentesis. Light's criteria suggests transudative effusion. Thora pathology negative for malignancy. Eliquis resumed, continue metoprolol. Diuretics as above. worsening hypoxia 11/17: Repeat two-view chest x-ray with increased small effusions, new left lower lobe opacity and extensive diffuse interstitial opacities that could be atypical pneumonia. Given increasing white blood cell count will broaden antibiotics from Augmentin to Zosyn and doxycycline. Do not feel that her fluid overload is as significant of a contributor, weight is down, continue current diuretic regimen. #Skeletal lesions - concerning for multiple myeloma vs. metabolic bone disease vs malignancy (interesting Ca levels are low) Peripheral blood smear revealed anemia likely secondary to chronic disease versus MEDHAT; leukocytosis unremarkable Oncology consulted - Rec serum protein electrophoresis, 24-hour urine protein electrophoresis, free light chain assay - PENDING - Will need outpatient follow-up s/p venofer x 3. PTH/ Vit D WNL Discussed with IR for possibility of bone marrow bx - images reviewed and does not look like multiple myeloma, reporting the lesions are very small and look like osteopenia with metabolic issues. Would recommend repeat CT in 6 months and only consider bx if labs concerning for multiple myeloma Recently started on abalparatide for osteoporosis - rec continue at discharge #Elevated INR | Elevated LFTs| Thrombocytopenia | Paroxysmal atrial fibrillation | CAD Continue Amiodarone 200mg po daily. Eliquis and plavix (hx of TIA/CVA, no stents) Liver US slightly echogenic but not specific, no dilation. LFTs/Bili downtrending -suspect hepatic congestion from CHF hepatitis panel negative so far AM CMP #Elevated Troponin: EKG with no acute ischemic changes, significant for a 1st degree block, rightward axis, possible left atrial enlargement. Troponin 167--> 214--> 220 Repeat echo, no significant changes from Echo in 08/2024: Moderate LVH, Mod- severe Aortic Regurg and Tricuspid Regurg, Mild Mitral Stenosis. Increased right ventricular systolic pressure>60mmHg. Noted moderate Right pleural effusion #Hypothyroidism TSH elevated at 6.976 at admission, Continue Synthroid Follow up in outpatient #COPD - Continue Trelegy or formulary equivalent, DuoNebs PRN #GERD: Continue Protonix DVT Proph-Eliquis Disposition: Continued stay, restarting IV antibiotic Will need CHF clinic and onc f/u on discharge Admission and Anticipated Discharge Date Admission Date: November 08, 2024 Supervising Physician Co-Signing Physician Notes TERRA Supervision Note: I did not personally see or examine the patient today, but I verified all velasquez points of TERRA Sinclair's assessment and plan with the following exceptions/additions: None Subjective patient seen sitting up in bed. Denies having any difficulty breathing when she was found to be hypoxic. Did not feel like she was having a hard time breathing or felt short of breath. Denies fevers chills or increased cough appetite is about the same Review of Systems Review of Systems: All systems reviewed & are unremarkable except as noted in Subjective Physical Exam Physical Exam: General: no acute distress; lethargic; non-toxic appearing; cachectic; HEENT: normocephalic, atraumatic; no scleral icterus; PERRLA; vision and hearing intact CV: chest wall NTP; RRR; S1/S2 normal; no murmurs/rubs/gallops; Lungs: no acute respiratory distress; symmetrical chest wall expansion; lung sounds diminished in the bases, more so on the left side ABD: soft, nontender extremities: Lower extremity edema has improved Neuro: A&Ox3; normal mood and affect; fluent speech; no focal deficits; Results & Data Results & Data Vital Signs (Past 12 Hours) Vital Signs Temp Pulse BP Pulse Ox O2 Del Method O2 Flow Rate 11/17/24 08:37 97.7 F 54 L 133/68 11/17/24 08:05 90 Nasal Cannula 5 11/17/24 07:09 Room Air Laboratory Results CBC and chemistry reviewed Diagnostic Findings chest x-ray reviewed PG Care Time/CCT Total # of Minutes Spent Total Time Spent with Patient: Total time spent is greater than 50% in coordination of care (as documented) at patient's floor/unit and/or counseling patient: Coding Level of Care Code 91102 SUB INP/OBS CARE 3/50MIN Diagnoses Bone lesion M89.9 Failure to thrive in adult R62.7 BRITTNEY (acute kidney injury) N17.9 HFrEF (heart failure with reduced ejection fraction) I50.20"
[2024-11-17] MEDS: 4.5GM X1 IV STA (12:52)
[2024-11-17] MEDS: DOXYCYCLINE HYCLATE 100 MG in DEXTROSE 5% MINI-B 100 ML IV SCH (13:29)
[2024-11-17] MEDS: PIPERACILLIN/TAZOBACTAM 4.5 GM/100 ML BAG IV SCH (17:25)
--- NOTE | 2024-11-17 17:40 | Electrocardiogram Report ---
Test Reason : Blood Pressure : */* mmHG Vent. Rate : 96 BPM Atrial Rate : 96 BPM P-R Int : 180 ms QRS Dur : 106 ms QT Int : 390 ms P-R-T Axes : 72 72 93 degrees QTcB Int : 492 ms Normal sinus rhythm Possible Left atrial enlargement Prolonged QT Abnormal ECG When compared with ECG of 07-Nov-2024 21:56, GA interval has decreased T wave inversion no longer evident in Inferior leads Confirmed by Chris Pritchard ([id number]) on 11/17/2024 5:39:52 PM Referred By: REFERRED SELF Confirmed By: Chris Pritchard
[2024-11-18 08:09] LABS: Hematocrit (blood only) 36.7 % (37.0-47.0); Hemoglobin 10.9 g/dl (12.0-16.0); Immature Granulocytes # (auto) 0.44 K/uL (0.01-0.20); Immature Granulocytes % (auto) 2.8 %; Mean Corpuscular Hemoglobin 24.2 pg (25.0-34.0); Mean Corpuscular Volume 81.4 fL (80.0-100.0); Platelet Count 177 K/uL (130-400); RDW Standard Deviation 65.1 fL (36.4-46.3); Red Blood Count 4.51 M/uL (4.20-5.40); White Blood Count 15.52 K/ul (4.8-10.8)
[2024-11-18 08:30] LABS: Anisocytosis Present; Hypochromasia Present; Polychromasia 1+
[2024-11-18 08:31] LABS: Anion Gap 6.0 (3-11); Blood Urea Nitrogen 20.0 mg/dl (6-23); Calcium 8.7 mg/dl (8.6-10.3); Carbon Dioxide 34.0 mmol/L (21-32); Chloride 94.0 mmol/L (98-107); Creatinine Clr Calc Pharmacy 43.3 ml/min; Glucose 90.0 mg/dl (70-99(Fasting)); Potassium 3.8 mmol/L (3.5-5.1); Sodium 134.0 mmol/L (136-145)
[2024-11-18 08:48] LABS: Hepatitis A Antibody IgM NON-REACTIVE (NON-REACTIVE); Hepatitis B Core Antibody IgM NON-REACTIVE (NON-REACTIVE)
[2024-11-18 10:38] LABS: Chlamydia pneumoniae PCR Not Detected (NotDetected); Coronavirus 229E PCR Not Detected (NotDetected); Coronavirus CoV-2 (COVID19)PCR Not Detected (NotDetected); Coronavirus HKU1 PCR Not Detected (NotDetected); Coronavirus NL63 PCR Not Detected (NotDetected); Coronavirus OC43PCR Not Detected (NotDetected); Human Metapneumovirus PCR Not Detected (NotDetected); Parainfluenza Virus 1 PCR Not Detected (NotDetected); Parainfluenza Virus 2 PCR Not Detected (NotDetected); Parainfluenza Virus 3 PCR Not Detected (NotDetected); Parainfluenza Virus 4 PCR Not Detected (NotDetected); Respiratory Syncytial VirusPCR Not Detected (NotDetected); Rhinovirus/Enterovirus PCR Not Detected (NotDetected)
--- NOTE | 2024-11-18 11:01 | Pulmonology Progress Note ---
Date of Service November 18, 2024 Assessment & Plan (1) Pleural effusion: (2) Cor pulmonale: (3) Pulmonary edema: (4) Emphysema/COPD: Emphysema type: centrilobular Qualified Code(s): J43.2 - Centrilobular emphysema (5) Hypoxia: (6) On home oxygen therapy: Plan 64-year-old female with past medical history of atrial fibrillation on Eliquis, CAD on plavix, bioprosthetic AVR, porcine MVR, paroxysmal supraventricular tachycardia, pulmonary hypertension, COPD, chronic hypoxic respiratory failure who wears 3 liters nasal cannula at baseline, TIA/CVA, HTN, HLD, depression, anxiety, GERD, hypothyroidism, and failure to thrive; who presented to [facility] ED on 11/08/2024 with generalized weakness and unfortunately suffered an unwitnessed fall at home with a 2.5 hr downtime with worsening hypoxia and left pleural effusion in setting of likely heart failure exacerbation with possible undiagnosed malignancy. CT chest 11/07/2024 personally reviewed: Severe centrilobular and paraseptal emphysema appreciated bilaterally Minimal bilateral apical pleural scarring Small to moderate left-sided pleural effusion atelectasis of the left lower lobe, small left-sided pleural effusion Cardiomegaly Minimal mediastinal lymphadenopathy 2D echo 11/08/2024: 55-60%, RVSP> 60 mmHg, moderate to severe AR, bioprosthetic mitral valve, moderate concentric LVH, RV systolic function mildly reduced --Acute on chronic hypercapnic hypoxic respiratory failure At baseline 2-3 L oxygen at home Multifactorial Pleural effusion Cannot rule out pneumonia especially with elevated procalcitonin S/p thoracentesis 11/13/2024, cytology negative, exudative per lights criteria looking at LDH Respiratory bio fire negative for everything on 11/18/2024 Procalcitonin 0.96 BNP 2771 --COPD with emphysema It seems patient also has CPFE like component On Trelegy 200 at home --Pulmonary hypertension 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 Continue with nebulized bronchodilators while in the hospital Complete the course of antibiotics given the elevated procalcitonin Case was discussed with RN as well as primary team I spent more than 50 minutes looking in the chart, images, discussing the plan of care with the patient, RN as well as primary team Please note the above document was generated using voice recognition software. It may contain grammatical, syntax or spelling errors.Any formal questions or concerns about the content, text or information contained within the body of this dictation should be directly addressed to the provider for clarification. Admission and Anticipated Discharge Date Admission Date: November 08, 2024 Subjective Patient seen and examined at bedside. Pulmonary reconsulted given the worsening on the chest x-ray today At the time of examination patient was saturating 90% on 5 L nasal cannula She was not in any respiratory distress She does state that she gets short of breath on minimal exertion No personal or family of autoimmune disease like lupus, sarcoid, Sjogren's, rheumatoid Review of Systems 2 Review of Systems: All systems reviewed & are unremarkable except as noted in Subjective Physical Exam 2 Physical Exam: Constitutional: No acute distress, thin appearing HEENT: EOMI, PERRLA Respiratory system: Decreased air entry bilaterally, no wheeze, no rhonchi, positive Velcro-like crackles appreciated bilaterally CVS: S1-S2 positive, no murmurs or gallops Abdomen: Soft, nontender, nondistended, positive bowel sounds x4 Extremities: +2 pulses bilaterally radialis/ dorsalis pedis, no cyanosis, no edema Neuro: Awake alert oriented x3 Psych: Normal mood and affect G/U: No Jimenez Skin: no rashes, warm and dry Lymphatic: no cervical or axillary lymphadenopathy Results & Data Results & Data Vital Signs (Past 12 Hours) Vital Signs Temp Pulse Resp BP Pulse Ox O2 Del Method O2 Flow Rate 11/18/24 09:21 Nasal Cannula 5 11/18/24 08:21 36.7 C 90 18 110/58 L 95 Nasal Cannula 5 Laboratory Results 11/18/24 07:34 11/18/24 07:34 PG Care Time/CCT Total # of Minutes Spent Total Time Spent with Patient: Total time spent is greater than 50% in coordination of care (as documented) at patient's floor/unit and/or counseling patient: Coding Level of Care Code 58940 SUB INP/OBS CARE 3/50MIN Diagnoses Pleural effusion J90 Cor pulmonale I27.81 Pulmonary edema J81.1 Centrilobular emphysema J43.2 Emphysema type: centrilobular Hypoxia R09.02 On home oxygen therapy Z99.81
--- NOTE | 2024-11-18 15:46 | Hospitalist Progress Note ---
"Date of Service November 18, 2024 Assessment & Plan (1) Bone lesion: (2) Failure to thrive in adult: (3) BRITTNEY (acute kidney injury): (4) HFrEF (heart failure with reduced ejection fraction): Plan This patient is a 64-year-old female with a history of paroxysmal A-fib/flutter, CAD, bioprosthetic AVR, porcine MVR, PSVT, pulmonary HTN, COPD with chronic hypoxic respiratory failure w/ baseline 3 LNC O2, TIA/CVA x 2, HTN, HLD, HFpEF, myoclonus, underweight, severe osteoporosis, depression/anxiety, chronic opioid use, GERD, and hypothyroidism presenting with failure to thrive and an unwitnessed fall. She has had two recent hospitalizations 06/04-06/07 and 08/17-08/24 indicating a decline over the last several months. A more rapid decline over the last several days has occurred. Patient is being worked up for failure to thrive and new finding of osseous lucencies in the setting of BRITTNEY and acute on chronic HFrEF with large left pleural effusion #Failure to thrive in the adult - patient reports poor appetite, decreased oral intake for the last month. Dieticians consult appreciated - diet liberalized, MVI added, continue protein supplements PT/OT evaluations - rec rehab, auth approved for [facility] but cannot accept until monday #BRITTNEY- Resolved Baseline Cr 1.4, Cr 2.92 on admission. Likely multifactorial - secondary to decreased oral intake as well as medication effects. Patient on Lisinopril and Spironolactone as an outpatient. She reports she has continued to take her medications. She has mildly elevated Nephrology consult appreciated - brittney improving, resume PO lasix at 20mg daily. Discussed resuming spironolactone 11/15 and monitoring and potentially resuming lisinopril in the next few days. Keppra level 11/11 elevated 97.5 - dose has been reduced, recheck outpatient #HFrEF/Pleural effusions | Acute on chronic HFpEF - Echocardiogram 08/17/24 with normal LV function, mild LVH, moderate Aortic regurgitation and bioprosthetic mitral valve. Patient appears to be overloaded with edema, JVD, rales, marked elevation of BNP on admissions. Increasing oxygen requirements overnight 11/12 - imaging concerning for worsening pleural effusions. Pulmonology consulted - s/p thoracentesis. Light's criteria suggests transudative effusion. Thora pathology negative for malignancy. Eliquis resumed, continue metoprolol. Diuretics as above. Worsening hypoxia 11/17: Repeat two-view chest x-ray with increased small effusions, new left lower lobe opacity and extensive diffuse interstitial opacities that could be atypical pneumonia. Given increasing white blood cell count will broaden antibiotics from Augmentin to Zosyn and doxycycline. Pulm reconsulted - recommend continued abx given elevated procal. Continued diuresis - ordered additional 10mg IV lasix biofire negative 11/18 CRP elevated, trend in AM #Skeletal lesions - concerning for multiple myeloma vs. metabolic bone disease vs malignancy (interesting Ca levels are low) Peripheral blood smear revealed anemia likely secondary to chronic disease versus MEDHAT; leukocytosis unremarkable Oncology consulted - Rec serum protein electrophoresis, 24-hour urine protein electrophoresis, free light chain assay - PENDING - Will need outpatient follow-up s/p venofer x 3. PTH/ Vit D WNL Discussed with IR for possibility of bone marrow bx - images reviewed and does not look like multiple myeloma, reporting the lesions are very small and look like osteopenia with metabolic issues. Would recommend repeat CT in 6 months and only consider bx if labs concerning for multiple myeloma Recently started on abalparatide for osteoporosis - rec continue at discharge #Elevated INR | Elevated LFTs| Thrombocytopenia | Paroxysmal atrial fibrillation | CAD Continue Amiodarone 200mg po daily. Eliquis and plavix (hx of TIA/CVA, no stents) Liver US slightly echogenic but not specific, no dilation. LFTs/Bili downtrending -suspect hepatic congestion from CHF hepatitis panel negative so far #Elevated Troponin: EKG with no acute ischemic changes, significant for a 1st degree block, rightward axis, possible left atrial enlargement. Troponin 167--> 214--> 220 Repeat echo, no significant changes from Echo in 08/2024: Moderate LVH, Mod- severe Aortic Regurg and Tricuspid Regurg, Mild Mitral Stenosis. Increased right ventricular systolic pressure>60mmHg. Noted moderate Right pleural effusion #Hypothyroidism TSH elevated at 6.976 at admission, Continue Synthroid Follow up in outpatient #COPD - Continue Trelegy or formulary equivalent, DuoNebs PRN #GERD: Continue Protonix DVT Proph-Eliquis Disposition: Continued stay, restarting IV antibiotic, continuing diuresis Will need CHF clinic and onc f/u on discharge Admission and Anticipated Discharge Date Admission Date: November 08, 2024 Supervising Physician Co-Signing Physician Notes Attending Attestation - Chart reviewed, care plan d/w TERRA Sinclair. I agree with the velasquez components of her documentation. Appreciate pulmonary recommendations & assistance. Check sed rate/crp. Cont antibiotics, diuresis, nebs, supportive care, etc. Juan Ramon Gill MD Subjective patient seen sitting up in bed, denies feeling short of breath. Denies cough Review of Systems Review of Systems: All systems reviewed & are unremarkable except as noted in Subjective Physical Exam Physical Exam: General: no acute distress; lethargic; non-toxic appearing; cachectic; HEENT: normocephalic, atraumatic; no scleral icterus; PERRLA; vision and hearing intact CV: chest wall NTP; RRR; S1/S2 normal; no murmurs/rubs/gallops; Lungs: no acute respiratory distress; symmetrical chest wall expansion; lung sounds diminished in the bases, more so on the left side ABD: soft, nontender extremities: Lower extremity edema has improved Neuro: A&Ox3; normal mood and affect; fluent speech; no focal deficits; Results & Data Results & Data Vital Signs (Past 12 Hours) Vital Signs Temp Pulse Resp BP Pulse Ox O2 Del Method O2 Flow Rate 11/18/24 15:14 97.5 F L 85 18 119/60 96 Nasal Cannula 5 11/18/24 12:06 97.5 F L 95 H 20 112/60 90 Nasal Cannula 5 11/18/24 09:21 Nasal Cannula 5 11/18/24 08:21 98.1 F 90 18 110/58 L 95 Nasal Cannula 5 Laboratory Results cbc chemistry and biofire reviewd crp and BNP reviewed PG Care Time/CCT Total # of Minutes Spent Total Time Spent with Patient: Total time spent is greater than 50% in coordination of care (as documented) at patient's floor/unit and/or counseling patient: Coding Level of Care Code 51503 SUB INP/OBS CARE 3/50MIN Diagnoses Bone lesion M89.9 Failure to thrive in adult R62.7 BRITTNEY (acute kidney injury) N17.9 HFrEF (heart failure with reduced ejection fraction) I50.20"
[2024-11-18] MEDS: FUROSEMIDE INJ 20 MG/2 ML VIAL IV ONE ×2 (16:33→16:59)
[2024-11-18] MEDS: BUDESONIDE 0.25 MG/2 ML VIAL (PULMICORT) NEB SCH (19:54)
[2024-11-18] MEDS: SODIUM CHLOR 7% 4 ML NEB NEB SCH (19:55)
[2024-11-18] MEDS: FORMOTEROL 20 MCG/2 ML VIAL NEB SCH (19:55)
[2024-11-19 07:04] LABS: Hematocrit (blood only) 34.3 % (37.0-47.0); Hemoglobin 10.3 g/dl (12.0-16.0); Immature Granulocytes # (auto) 0.28 K/uL (0.01-0.20); Immature Granulocytes % (auto) 1.9 %; Mean Corpuscular Hemoglobin 24.5 pg (25.0-34.0); Mean Corpuscular Volume 81.7 fL (80.0-100.0); Platelet Count 211 K/uL (130-400); RDW Standard Deviation 67.5 fL (36.4-46.3); Red Blood Count 4.20 M/uL (4.20-5.40); White Blood Count 14.44 K/ul (4.8-10.8)
[2024-11-19 07:28] LABS: Anion Gap 8.0 (3-11); Blood Urea Nitrogen 22.0 mg/dl (6-23); Calcium 8.7 mg/dl (8.6-10.3); Carbon Dioxide 34.0 mmol/L (21-32); Chloride 94.0 mmol/L (98-107); Creatinine Clr Calc Pharmacy 31.3 ml/min; Glucose 83.0 mg/dl (70-99(Fasting)); Potassium 3.5 mmol/L (3.5-5.1); Sodium 136.0 mmol/L (136-145)
[2024-11-19 07:33] LABS: Anisocytosis Present; Polychromasia 3+; Stomatocytes 1+
--- NOTE | 2024-11-19 07:36 | Hospitalist Progress Note ---
Date of Service November 19, 2024 Assessment & Plan (1) Bone lesion: (2) Failure to thrive in adult: (3) BRITTNEY (acute kidney injury): (4) HFrEF (heart failure with reduced ejection fraction): Plan 64yo F presented for FAILURE TO THRIVE after unwitnessed fall at home with several weeks of poor appetite, decreased oral intake and generalized weakness. PMHx significant for afib/flutter/PSVT (on Eliquis), bioprosthetic MVR, aortic valve REPAIR, Pulmonary HTN (RVSP >60mmHg), HFpEF, COPD with chronic respiratory failure (baseline 3L NC), TIA/CVA x 2, HTN, HLD, myoclonus, underweight, severe osteoporosis, depression/anxiety, chronic opioid use, GERD, hypothyroidism * On admission, concerns for volume overloaded with edema/rales/elevated BNP however appeared intravascularly depleted. Given albumin and LR on admission and home spironolactone/lisinopril placed on hold for BRITTNEY w/ Cr to 2.9 with baseline prior around ~1.4. Also with with left pleural efusion >R, concerning for HF vs infectious vs other and pulmonology consulted and underwent thoracentesis 11/13 for 1.4L and appears transudative, ?related to HF/renal dysfunction. Has been seen by nephrology, oncology, and pulmonology during inpatient stay, currently undergoing antibiotic treatment and diuretics to help with symptoms and palliative medicine consulted for goals discussion given lung/heart/kidney disease and repeat hospitalizations as was hospitalized 06/04-06/07, 08/17-08/24 indicating decline over past several months. Also concerns for possible underlying malignancy process w/ skeletal lesions and SPEP/UPEP sent, eventual plan for REHAB at [facility] #Acute on chronic HFpEF/Pleural effusions Prior ECHO w/ normal LV function, moderate AR w/ bioprosthetic valve 2D echo 11/08/2024: 55-60%, RVSP> 60 mmHg, moderate to severe AR, bioprosthetic mitral valve, moderate concentric LVH, RV systolic function mildly reduced BNP elevated on admission w/ effusion concerning for overload but as above noted to be intravascularly deplete and given albumin on admission w/ IVF CXR w/ large L effusion, increased O2 demands Pulm consulted s/p thoracentesis 11/04 as above, transudative. Path NEG for malignancy Eliquis resumed/continued for hx afib, remains on metoprolol Lasix resumed at 40mg daily once renal function back to 1.2 on 11/13 per nephrology (not on prior) and decreased to 20mg on 11/14 and rec to aim net negative Repeat BNP elevated 2771 @ 11/18 despite PO lasix/resumption of spironolactone 11/15 Repeat lasix 20mg IV x 1 PM 11/18. Na normalized Remains w/ 1-2+ b/l LE edema on 11/19 -->Additional 20mg IV x 1 ordered + 40meq KCL PO x 1 Monitor volume status on repeat -RN to obtain weight but ordered , strict I&O (dry weight per HF clinic ~80-83lb?) Remains on spironolactone 25mg daily -?benefit to rather just increase spironolactone dose for R sided failure symptoms and keep K replete w/ hx afib Has been off her dapagliflozin since admission, ?able to resume in AM 11/20 Monitor volume status/adj to diuretics pending response but #Chronic respiratory failure, chronic O2 therapy #COPD, emphysema #Possible Atypical Pneumonia Concerns for increased opacities on CXR 11/17, procal added given increased leukocytosis and O2 requirement to 5-6L NC with baseline 3L Procal elevated to 0.96. CRP 9 Suspected increased O2 needs 2nd to HF/elevated RSVP. On eliquis BID. Abx broadened to Zosyn, Doxy -- continued WBC trending down Blood cx pending Biofire checked , neg 11/18. Pulm notified/following -- added hypertonic saline, budesonide, formoterol nebs. Diuretics as above. Sending out rheum labs/JAYESH/sjogrens/etc--> WILL NEED FOLLOW UP Down to 3L following titration this morning. ? amiodarone use - continued as SR but could be entertained to stop #Skeletal lesions - concerning for multiple myeloma vs. metabolic bone disease vs malignancy (interesting Ca levels are low) Periph smear w/ anemia likely 2nd to chronic disease vs MEDHAT s/p Venofr IV x 3 Vit D wnl Discussed w/ IR about poss bone marrow bx- images reviewed and does not look like multiple myeloma, reporting the lesions are very small and look like osteopenia with metabolic issues. Would recommend repeat CT in 6 months and only consider bx if labs concerning for multiple myeloma Oncology consulted, rec SPEP, 24hr UPEP, free light chain assay --> kappa light chains elevated but UPEP reports "Pattern consistent with mixed glomerular and tubular proteinuria" and per oncology "probably just bad osteoporosis" Recently started on abaloparatide for osteoporosis - rec continue at discharge Outpatient rec for PET for further eval to be entertained Palliative consult as above #Failure to thrive in the adult - patient reports poor appetite, decreased oral intake for the last month. Dieticians consult appreciated - diet liberalized, MVI added, continue protein supplements PT/OT evaluations - rec rehab, auth pending and CM to follow. ?Mt Wanda when auth/bed received pending response to diuretics/abx as above #BRITTNEY- Resolved Baseline Cr 1.4, Cr 2.92 on admission. Likely multifactorial - secondary to decreased oral intake as well as medication effects. -On lisinopril/spironolactone at baseline w/ poor PO intake/intravascular depletion on admission. Also w/ ELEVATED KEPPRA level 11/11 to 97.5 and dose REDUCED and will need repeat recheck outpatient Nephrology consulted, held off resumption of diuretics until Cr down 1.2 on 11/13 and resumed 40mg daily but dropped to 20mg daily 11/14 Resumed spironolactone 11/14 Lisinopril remains on HOLD for now ?increase spironolactone for HF symptoms and hold off lisinopril? Cr 1.12 and will continue to monitor #Elevated INR | Elevated LFTs| Thrombocytopenia | #Paroxysmal atrial fibrillation | CAD INR elevated on admission, suspected poor nutiriton status and given Vitamin K 5mg x 1 EKG NSR Hepatitis panel negative. Liver US slightly echogenic but not specific, no dilation. LFTs/Bili downtrending -suspect hepatic congestion from CHF. --> repeat LFTs trending down Remains on amiodarone (?pulm tox issues), metoprolol 12.5mg daily Continues on Eliquis and plavix (hx of TIA/CVA, no stents) #Elevated Troponin: EKG with no acute ischemic changes, significant for a 1st degree block, rightward axis, possible left atrial enlargement. Troponin 167--> 214--> 220. Repeat echo w/o wma, no CP reported. Downgraded off telemetry #Hypothyroidism -TSH elevated at 6.976 and is on Synthroid 150mcg daily at baseline. T4 wnl 0.96 but will add T3 to am labs but suspect could benefit from increase given failure to thrive/HF/afib at baseline espicially in patient on replacement at baseline with sx and leg edema #COPD - Continue Trelegy or formulary equivalent, DuoNebs PRN --> Changed to nebulized formation #GERD: Continue Protonix DVT Proph-Eliquis Disposition: Continued stay for abx/diuresis, hopeful dc to [facility] once auth received pending response to treatment. Palliative consult discussed, goals of care. Is full code at this time but suspect doesn't understand if needed intubated likely very difficult if at all to extubate given overall picture Will need CHF clinic f/u as well as pulm/oncology pending course Admission and Anticipated Discharge Date Admission Date: November 08, 2024 Supervising Physician Co-Signing Physician Notes The patient was not seen by me. The chart was reviewed. Case discussed with TERRA Duncan. Agree with assessment and plan Subjective Evaluated this morning, sitting up in bed. Given lasix IV this morning, titrated to baseline 3L. Remains on antibiotics for concern also superimposed pneumonia but discussed suspected more likely from heart failure/R sided failure. Discussed with nursing to please obtain standing weight and monitor I&O. Consideration to repeat dosing pending response - per nursing, aide reported minimal output thus far. Reports breathing stable, feels improved. No sputum production, thinks the nebulizers are helping. Discussed code status, agreeable to trial CPR/Intubation but discussed w/ lungs/heart failure concerns and possible malignancy that I believe palliative consult appropriate to discuss goals in future while still of sound mind/body,. She desires rehab at present, CM following. Results & Data Results & Data Vital Signs (Past 12 Hours) Vital Signs Temp Pulse Pulse Resp BP Pulse Ox O2 Del Method 11/19/24 07:25 36.7 C 85 14 129/68 99 Nasal Cannula 11/19/24 07:00 Nasal Cannula 11/19/24 06:52 89 18 92 Nasal Cannula 11/18/24 20:01 Nasal Cannula 11/18/24 19:57 88 18 92 Nasal Cannula O2 Flow Rate 11/19/24 07:25 5 11/19/24 07:00 5 11/19/24 06:52 5 11/18/24 20:01 5 11/18/24 19:57 5 Laboratory Results 11/19/24 11/18/24 11/13/24 Range/Units 06:33 11:08 12:00 WBC 14.44 H (4.8-10.8) K/ul RBC 4.20 (4.20-5.40) M/uL Hgb 10.3 L (12.0-16.0) g/dl Hct 34.3 L (37.0-47.0) % MCV 81.7 (80.0-100.0) fL MCH 24.5 L (25.0-34.0) pg MCHC 30.0 L (32.0-36.0) g/dL RDW Std Deviation 67.5 H (36.4-46.3) fL RDW Coeff of Claudette 23.7 H (11.5-14.5) % Plt Count 211 (130-400) K/uL MPV 10.9 (9.4-12.4) fL Immature Gran % (Auto) 1.9 % Neut % (Auto) 86.0 % Lymph % (Auto) 5.1 % [place] % (Auto) 6.6 % Eos % (Auto) 0.0 % Baso % (Auto) 0.4 % Neut # (Auto) 12.40 H (1.40-6.50) K/uL Lymph # (Auto) 0.74 L (1.20-3.40) K/uL [place] # (Auto) 0.96 H (0.11-0.59) K/uL Eos # (Auto) 0.00 (0.00-0.50) K/uL Baso # (Auto) 0.06 (0.00-0.20) K/uL Immature Gran # (Auto) 0.28 H (0.01-0.20) K/uL Polychromasia 3+ Anisocytosis Present Stomatocytes 1+ Sodium 136 (136-145) mmol/L Potassium 3.5 (3.5-5.1) mmol/L Chloride 94 L (98-107) mmol/L Carbon Dioxide 34 H (21-32) mmol/L Anion Gap 8 (3-11) BUN 22 (6-23) mg/dl Creatinine 1.12 D (0.6-1.2) mg/dl Est Cr Clr Drug Dosing 31.3 ml/min eGFR 55.25 BUN/Creatinine Ratio 19.6 (10-20) Glucose 83 (70-99(Fasting)) mg/dl Calcium 8.7 (8.6-10.3) mg/dl Total Bilirubin 1.1 H (0.2-1.0) mg/dl Direct Bilirubin 0.5 H (0-0.2) mg/dl AST 15 (13-39) U/L ALT 14 (7-52) U/L Alkaline Phosphatase 130 H (34-104) U/L C-Reactive Protein 9.72 H (0-0.5) mg/dl B-Natriuretic Peptide 2771 H (0-100) pg/ml Total Protein 5.6 L (6.0-8.3) gm/dl Albumin 2.9 L (3.4-5.0) gm/dl Ur Creatinine 24 Hour 0.46 L (0.50-2.15) g/24 h Ur Total Protein 24 Hr 189 H (<150) mg/24 h Protein/Creat Ratio 24h 0.409 H (<0.150) Urine Albumin (%) 37 % U [id number] (%) 13 % U [id number] (%) 21 % U Beta Globulin (%) 10 % U Gamma Globulin (%) 18 % U Abnormal Prot Band 1 DNR (NONE DETECTED) mg/24 h U Abnormal Prot Band 2 DNR (NONE DETECTED) mg/24 h U Abnormal Prot Band 3 DNR (NONE DETECTED) mg/24 h Urine PEP Interpret SEE NOTE Urine Immunofixation SEE NOTE PG Care Time/CCT Total # of Minutes Spent Total Time Spent with Patient: Total time spent is greater than 50% in coordination of care (as documented) at patient's floor/unit and/or counseling patient: Coding Level of Care Code 39565 SUB INP/OBS CARE 3/50MIN Diagnoses Bone lesion M89.9 Failure to thrive in adult R62.7 BRITTNEY (acute kidney injury) N17.9 HFrEF (heart failure with reduced ejection fraction) I50.20
[2024-11-19] MEDS: POTASSIUM CHLORIDE CRTAB 20 MEQ TABCR PO STA (07:57)
[2024-11-19] MEDS: FUROSEMIDE INJ 20 MG/2 ML VIAL IV ONE (07:57)
[2024-11-19] MEDS: UMECLIDINIUM BROMIDE 62.5MCG/BLISTER 7 PUFFS/INHALER INH SCH (08:01)
[2024-11-19 08:12] LABS: Alanine Aminotransferase 14.0 U/L (7-52); Alkaline Phosphatase 130.0 U/L (34-104); Bilirubin,Total 1.1 mg/dl (0.2-1.0); Total Protein 5.6 gm/dl (6.0-8.3)
--- NOTE | 2024-11-19 08:26 | Pulmonology Progress Note ---
Date of Service November 19, 2024 Assessment & Plan (1) Pleural effusion: (2) Cor pulmonale: (3) Pulmonary edema: (4) Emphysema/COPD: Emphysema type: centrilobular Qualified Code(s): J43.2 - Centrilobular emphysema (5) Hypoxia: (6) On home oxygen therapy: Plan 64-year-old female with past medical history of atrial fibrillation on Eliquis, CAD on plavix, bioprosthetic AVR, porcine MVR, paroxysmal supraventricular tachycardia, pulmonary hypertension, COPD, chronic hypoxic respiratory failure who wears 3 liters nasal cannula at baseline, TIA/CVA, HTN, HLD, depression, anxiety, GERD, hypothyroidism, and failure to thrive; who presented to [facility] ED on 11/08/2024 with generalized weakness and unfortunately suffered an unwitnessed fall at home with a 2.5 hr downtime with worsening hypoxia and left pleural effusion in setting of likely heart failure exacerbation with possible undiagnosed malignancy. CT chest 11/07/2024 personally reviewed: Severe centrilobular and paraseptal emphysema appreciated bilaterally Minimal bilateral apical pleural scarring Small to moderate left-sided pleural effusion atelectasis of the left lower lobe, small left-sided pleural effusion Cardiomegaly Minimal mediastinal lymphadenopathy 2D echo 11/08/2024: 55-60%, RVSP> 60 mmHg, moderate to severe AR, bioprosthetic mitral valve, moderate concentric LVH, RV systolic function mildly reduced --Acute on chronic hypercapnic hypoxic respiratory failure At baseline 2-3 L oxygen at home Multifactorial Pleural effusion Cannot rule out pneumonia especially with elevated procalcitonin S/p thoracentesis 11/13/2024, cytology negative, exudative per lights criteria looking at LDH Respiratory bio fire negative for everything on 11/18/2024 Procalcitonin 0.96 BNP 2771 --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 Autoimmune workup ordered to be done tomorrow in the morning. Continue with nebulized bronchodilators while in the hospital Complete the course of antibiotics given the elevated procalcitonin Overall prognosis of the patient is guarded, would recommend palliative care consult Case was discussed with RN as well as primary team Please note the above document was generated using voice recognition software. It may contain grammatical, syntax or spelling errors.Any formal questions or concerns about the content, text or information contained within the body of this dictation should be directly addressed to the provider for clarification. Admission and Anticipated Discharge Date Admission Date: November 08, 2024 Subjective Patient seen and examined at bedside. No acute distress, no adverse events overnight She was saturating 92% on 4 L nasal cannula while sitting on the chair Overall she says she is feeling better Denies any nausea vomiting Has been afebrile Coughing up clear phlegm. Denies any chest pain Appetite is fair Review of Systems 2 Review of Systems: All systems reviewed & are unremarkable except as noted in Subjective Physical Exam 2 Physical Exam: Constitutional: No acute distress, thin appearing HEENT: EOMI, PERRLA Respiratory system: Decreased air entry bilaterally, no wheeze, no rhonchi, positive crackles bilaterally more on the left lower side, improved from yesterday's CVS: S1-S2 positive, no murmurs or gallops Abdomen: Soft, nontender, nondistended, positive bowel sounds x4 Extremities: +2 pulses bilaterally radialis/ dorsalis pedis, no cyanosis, no edema Neuro: Awake alert oriented x3 Psych: Normal mood and affect G/U: No Jimenez Skin: no rashes, warm and dry Lymphatic: no cervical or axillary lymphadenopathy Results & Data Results & Data Vital Signs (Past 12 Hours) Vital Signs Temp Pulse Pulse Resp BP Pulse Ox O2 Del Method 11/19/24 07:25 36.7 C 85 14 129/68 99 Nasal Cannula 11/19/24 07:00 Nasal Cannula 11/19/24 06:52 89 18 92 Nasal Cannula O2 Flow Rate 11/19/24 07:25 5 11/19/24 07:00 5 11/19/24 06:52 5 Laboratory Results 11/19/24 06:33 11/19/24 06:33 PG Care Time/CCT Total # of Minutes Spent Total Time Spent with Patient: Total time spent is greater than 50% in coordination of care (as documented) at patient's floor/unit and/or counseling patient: Coding Level of Care Code 74987 SUB INP/OBS CARE 2/35MIN Diagnoses Pleural effusion J90 Cor pulmonale I27.81 Pulmonary edema J81.1 Centrilobular emphysema J43.2 Emphysema type: centrilobular Hypoxia R09.02 On home oxygen therapy Z99.81
--- NOTE | 2024-11-19 08:40 | XRay Report ---
EXAM: XR chest 1V portable CLINICAL HISTORY: f/u TECHNIQUE: An X-ray image of the chest is obtained in AP projection. COMPARISON: 11/17/2024 CR. FINDINGS: Pulmonary Parenchyma: Bilateral prominent interstitial markings, especially on the right showing the marked interstitial markings.. Opacification of left mid and lower zones. Thickening of minor fissure [fissural fluid] Bilateral mild pleural reaction obscuring the costophrenic recess. Heart and Mediastinum: Cardiac shadow is enlarged with bilateral hilar congestion. No mediastinal widening or masses. No hilar or mediastinal lymphadenopathy. Bony Thorax: Status of post sternotomy. Soft Tissues: Soft tissues overlying the chest wall are unremarkable. IMPRESSION: 1. Comparing the previous x-ray dated 11/17/2024 there is interval regression in bilateral pleural effusion with interval stable opacification of the left mid and lower zone and interstitial shadowing. 2. Bilateral prominent bronchovascular/interstitial markings, especially thick interstitial markings seen on the right sugegsting cardiogenic interstitial edema. 3. Opacification of left mid and lower zone. 4. Bilateral small pleural reaction obscuring the costophrenic recess. Small bilateral pleural effusion. Electronically signed by Pineda Aguilera 11-19-2024 08:40 AM
[2024-11-19 10:23] LABS: Creatinine, 24 hr Urine 0.46 g/24 h (0.50-2.15); Protein, Urine 24 Hour 189 mg/24 h (<150); Ur Albumin % 37 %; Ur Alpha-1-globulin % 13 %; Ur Alpha-2-globulin % 21 %; Ur Beta Globulin % 10 %; Ur Gamma Globulin % 18 %; Ur Protein/Creatinine Rat mg/g 409 mg/g creat (<150)
--- NOTE | 2024-11-19 14:54 | Palliative Care Consultation ---
Date of Consultation November 19, 2024 Assessment & Plan (1) Weakness generalized: (2) Failure to thrive in adult: (3) Advanced care planning/counseling discussion: I met with Jennifer face to face in room 386/bedside for a 45min ACP meeting. Jennifer she more attuned to her issues than I anticipated: she told me she knew her heart and lung issues were things that will continue to worsen, and she will decline, but she was not quite at a place where she could tell me if she was turning that corner. We explored this further and talked about all the complications she has been experiencing - I told her that we are worried that these are signs that the illnesses and their complications are progressing along this continuum she referenced. I asked her if she'd ever reflected on what she does/does not want if things were worsening. She told me she has been thinking of this more but gets overwhelmed because she overthinks "all the possibilities." I shared with her I also felt this was overwhelming but that maybe if we broke things up into a few high level "what-if" scenarios for her to consider, then we can follow up on this in a few days for more discussion. I asked her to think about the what-ifs of (1) if the heart/lung issues acutely worsen/meds do not help improve significantly and/or what if the heart-lung issues cause other organ systems to fail thus leading to more decline. I also asked her what matters most and she said being with family/the boyfriend and her home. She was able to tell me she didn't want to on machines if her was nearing but she could not get to a no code decision either. (4) Palliative care by specialist: Introduced Palliative Medicine and explained our role in patient's care. Patient and/or family were receptive to palliative services for goals of care discussions. Reviewed we are different from hospice, a home health nurse visiting service. Plan As above. Workup for ?severe osteoporosis vs ?MM underway, awaiting follow up from oncology Will plan for follow up discussion tomorrow with Perlita Escalera or Monday with me (I am off tomorrow, in clinic ) Thank you for allowing us to participate in the ongoing care of this patient. Please page with any additional concerns. Tolu Perez DNP Director, Palliative Medicine History of Present Illness Reason for Consultation: FTT, COPD, PH. HF Attending Physician: Fernando Chu MD History of Present Illness Jennifer is a 64yo female with atrial fibrillation on Eliquis, CAD on plavix, bioprosthetic AVR, porcine MVR, paroxysmal supraventricular tachycardia, pulmonary hypertension, COPD, chronic hypoxic respiratory failure/O2 3lpm NC baseline, TIA/CVA, HTN, HLD, depression, anxiety, GERD, hypothyroidism, and failure to thrive who came to [facility] ED 11/08/2024 with generalized weakness s/p unwitnessed fall at home with a 2.5 hr downtime, worsening hypoxia and left pleural effusion in setting of likely heart failure exacerbation with possible undiagnosed malignancy. CT chest 11/07/2024 personally reviewed: Severe centrilobular and paraseptal emphysema appreciated bilaterally Minimal bilateral apical pleural scarring Small to moderate left-sided pleural effusion atelectasis of the left lower lobe, small left-sided pleural effusion Cardiomegaly Minimal mediastinal lymphadenopathy 2D echo 11/08/2024: 55-60%, RVSP> 60 mmHg, moderate to severe AR, bioprosthetic mitral valve, moderate concentric LVH, RV systolic function mildly reduced Allergies Allergy/AdvReac Type Severity Reaction Status Date / Time aspirin Allergy Intermediate Hives Verified 09/13/24 09:50 hydrochlorothiazide Allergy Intermediate RASH/"Sick Verified 09/13/24 09:50 in stomach" trazodone AdvReac Severe Vomiting Verified 09/13/24 09:50 furosemide AdvReac Intermediate ELEVATED Verified 09/13/24 09:50 CREATINE tramadol AdvReac Mild Nausea Verified 09/13/24 09:50 Home Medications Medication Instructions Recorded Confirmed Type ipratropium 0.5 mg-albuterol 3 mg 3 ml NEB QID PRN shortness of 02/07/23 11/07/24 History (2.5 mg base)/3 mL nebulization breath or wheezing soln nebulizer accessories #5 ea 02/13/23 11/07/24 Rx nebulizers #1 ea 02/13/23 11/07/24 Rx Wheeled Walker #1 ea 02/22/23 11/07/24 Rx sodium chloride 7 % for 4 ml NEB BIDR #240 mL 05/11/23 11/07/24 Rx nebulization cholecalciferol (vitamin D3) 50 4,000 unit PO QAM 90 days #180 tabs 08/18/23 11/07/24 Rx mcg (2,000 unit) tablet (Vitamin D3) spironolactone 25 mg tablet 25 mg PO DAILY #90 tabs 11/07/23 11/07/24 Rx Oxygen Home 02/26/24 11/07/24 History clopidogrel 75 mg tablet 75 mg PO QPM #90 tabs 02/28/24 11/07/24 Rx montelukast 10 mg tablet 10 mg PO QAM #90 tabs 02/29/24 11/07/24 Rx abaloparatide (Tymlos) 80 mcg (0.04 mL) subcut DAILY 03/04/24 11/07/24 Rx #1.56 mL pen needle, diabetic 32 gauge x #100 ea 03/05/24 11/07/24 Rx 5/32" (BD Aruna 2nd Gen Pen Needle) levetiracetam 500 mg tablet 500 mg PO BID 90 days #180 tabs 05/10/24 11/07/24 Rx (Keppra) pantoprazole 40 mg tablet,delayed 40 mg PO DAILY #90 tabs 05/28/24 11/07/24 Rx release amiodarone 200 mg tablet 200 mg PO QAM #90 tabs 06/10/24 11/07/24 Rx cyanocobalamin (vitamin B-12) 1,000 mcg PO QAM #90 tabs 06/10/24 11/07/24 Rx 1,000 mcg tablet fluticasone fur. 200 mcg-umeclid 1 inh inhalation DAILY #60 ea 06/10/24 11/07/24 Rx 62.5 mcg-vilant 25 mcg inhalat.powder (Trelegy Ellipta) folic acid 1 mg tablet 1 mg PO QAM #90 tabs 06/10/24 11/07/24 Rx metoprolol succinate 25 mg 12.5 mg (1/2 x 25 mg) PO DAILY #45 06/10/24 11/07/24 Rx tablet,extended release 24 hr tabs mirtazapine 15 mg tablet 15 mg PO HS #90 tabs 06/10/24 11/07/24 Rx levothyroxine 150 mcg tablet 150 mcg PO DAILY #90 tabs 08/12/24 11/07/24 Rx lisinopril 2.5 mg tablet 2.5 mg PO QAM #90 tabs 08/22/24 11/07/24 Rx magnesium oxide 400 mg (241.3 mg 400 mg PO BID #60 tabs 08/23/24 11/07/24 Rx magnesium) tablet dapagliflozin propanediol 10 mg 10 mg PO DAILY #30 tabs 09/13/24 11/07/24 Rx tablet (Farxiga) oxycodone 5 mg tablet 5 mg PO QID PRN pain #120 tabs 10/30/24 11/07/24 Rx atorvastatin 40 mg tablet 40 mg PO QPM #90 tabs 11/19/24 Rx Patient History Medical History (Updated 11/19/24 @ 14:52 by Tiffanie Perez, LIBIA) Atrial flutter Hypoglycemia Acute hyperkalemia Sepsis Hyperkalemia Flu Sepsis Elevated troponin I level Acute respiratory failure with hypoxia and hypercapnia Positive colorectal cancer screening using Cologuard test On anticoagulant therapy plavix daily---MVR/AVR--follows with Krystian Valles Chronic combined systolic (congestive) and diastolic (congestive) heart failure Bilateral pleural effusion hx Mitral valve disease s/p MVR (2005) History of aortic valve disease s/p AVR (2005) Chronic back pain + neck Arthritis Hyperlipidemia Ischemic stroke Remote hx per records (?11/2018) Emphysema/COPD inhaler daily/prn, nebulizer prn Fibromyalgia Peripheral neuropathy GERD (gastroesophageal reflux disease) Depression Anxiety Transient ischemic attack (TIA) 2005, 2019--no deficits, followed with Dr. Plummer (cleared) follows with PCP and cardiology Hyperlipidemia On home oxygen therapy 2L O2 HS + PRN Surgical History History of esophagogastroduodenoscopy (EGD) History of colonoscopy History of heart valve replacement AVR (2005) History of lung biopsy History of bronchoscopy H/O: hysterectomy Family History Mother Slow to wake up after anesthesia Sister Family history of diabetes mellitus Father Stroke Osteoarthritis Other Coronary heart disease Denies family history of Ovarian cancer Prostate cancer Breast cancer Colorectal cancer Social History Smoking Status: Former smoker Tobacco Type: Cigarettes Age Started Using Tobacco: 18; Age Quit Using Tobacco: 59; packs per day: 0.5; Second Hand Exposure: Yes (family smokes); Do You Dip or Chew Tobacco: No; Hx Alcohol Use: No Hx Substance Use: No Preferred Language: Uzbek Communication Ability: Effective Hearing Ability: Normal Web Production Manager Required: No Beliefs That Will Affect Care: None marital status: Current Living Situation: Significant Other Current Living Situation Comment: Sebastián current occupational status: unemployed and disabled How many Children do You have: 2 Feels Safe at Home: Yes Childhood Exposure to Second-Hand Smoke: Yes Diet: regular during the past year weight has: decreased > 10 lbs Dental Care, Regularly: No Physical Activity Frequency: 3-4 Times per Week Seatbelt Use: always Sunscreen Use: Yes Assistive Devices: Denture - Upper, Denture - Lower, Glasses, Oxygen - Continuous and Walker Review of Systems Review of Systems: All systems reviewed & are unremarkable except as noted in Subjective Physical Exam Physical Exam: frail, cachectic mild dyspnea at rest, +conversational dyspnea inc resp effort, diminished bilat neck supple, no stridor cv +murmur, tachy, +murmur/systolic grade I/ abd scaphoid, BS diminished extremities with atrophy/muscle wasting AAOx3 anxious skin pale, +pallor, cool to touch Results & Data Vital Signs (Past 12 Hours) Vital Signs Temp Pulse Pulse Resp BP BP Pulse Ox 11/19/24 14:27 37 C 93 H 18 130/73 90 11/19/24 09:54 92 11/19/24 08:45 99 11/19/24 07:25 36.7 C 85 14 129/68 99 11/19/24 07:00 11/19/24 06:52 89 18 92 O2 Del Method O2 Flow Rate 11/19/24 14:27 Nasal Cannula 3.5 11/19/24 09:54 Nasal Cannula 4 11/19/24 08:45 Nasal Cannula 5 11/19/24 07:25 Nasal Cannula 5 11/19/24 07:00 Nasal Cannula 5 11/19/24 06:52 Nasal Cannula 5 Laboratory Results 11/19/24 11/18/24 11/18/24 Range/Units 06:33 11:08 09:27 WBC 14.44 H (4.8-10.8) K/ul RBC 4.20 (4.20-5.40) M/uL Hgb 10.3 L (12.0-16.0) g/dl Hct 34.3 L (37.0-47.0) % MCV 81.7 (80.0-100.0) fL MCH 24.5 L (25.0-34.0) pg MCHC 30.0 L (32.0-36.0) g/dL RDW Std Deviation 67.5 H (36.4-46.3) fL RDW Coeff of Claudette 23.7 H (11.5-14.5) % Plt Count 211 (130-400) K/uL MPV 10.9 (9.4-12.4) fL Immature Gran % (Auto) 1.9 % Neut % (Auto) 86.0 % Lymph % (Auto) 5.1 % Alger % (Auto) 6.6 % Eos % (Auto) 0.0 % Baso % (Auto) 0.4 % Neut # (Auto) 12.40 H (1.40-6.50) K/uL Lymph # (Auto) 0.74 L (1.20-3.40) K/uL Alger # (Auto) 0.96 H (0.11-0.59) K/uL Eos # (Auto) 0.00 (0.00-0.50) K/uL Baso # (Auto) 0.06 (0.00-0.20) K/uL Immature Gran # (Auto) 0.28 H (0.01-0.20) K/uL Absolute Nucleated RBC (0.00-0.12) K/uL Nucleated RBC % (auto) % Platelet Estimate (Normal) Polychromasia 3+ Hypochromasia Anisocytosis Present Target Cells Tear Drop Cells Ovalocytes Stomatocytes 1+ Echinocytes ESR (0-30) mm/hr VBG pH (7.36-7.41) VBG pCO2 (38-50) mmHg VBG pO2 mmHg VBG HCO3 mmol/L VBG O2 Saturation % VBG Base Excess mEq/L Sodium 136 (136-145) mmol/L Potassium 3.5 (3.5-5.1) mmol/L Chloride 94 L (98-107) mmol/L Carbon Dioxide 34 H (21-32) mmol/L Anion Gap 8 (3-11) BUN 22 (6-23) mg/dl Creatinine 1.12 D (0.6-1.2) mg/dl Est Cr Clr Drug Dosing 31.3 ml/min eGFR 55.25 Cystatin C (0.52-1.14) mg/L Est GFR (Cystatin C) (>=60) BUN/Creatinine Ratio 19.6 (10-20) Glucose 83 (70-99(Fasting)) mg/dl Lactate (0.4-2.0) mmol/L Calcium 8.7 (8.6-10.3) mg/dl Phosphorus (2.5-4.9) mg/dl Total Bilirubin 1.1 H (0.2-1.0) mg/dl Direct Bilirubin 0.5 H (0-0.2) mg/dl AST 15 (13-39) U/L ALT 14 (7-52) U/L Alkaline Phosphatase 130 H (34-104) U/L C-Reactive Protein 9.72 H (0-0.5) mg/dl B-Natriuretic Peptide 2771 H (0-100) pg/ml Total Protein 5.6 L (6.0-8.3) gm/dl Total Protein (PEP) Albumin 2.9 L (3.4-5.0) gm/dl Albumin (PEP) Globulin (2.5-4.0) gm/dl Albumin/Globulin Ratio (0.9-2) Qgnfh-3-Esmwidwrl Liknr-8-Rmmipzqyf Gasb-6-Ngmcvrki Pszq-8-Xyypqvdc Gamma Globulins Monoclonal Peak 3 Ser Monoclonl Protein Ser Monoclonal Prot 2 PEP Interpretation 25-OH Vitamin D Total (30-100) ng/ml Procalcitonin (0-0.5) ng/ml PTH Intact (12.0-88.0) pg/ml Ur Creatinine 24 Hour (0.50-2.15) g/24 h Ur Total Protein 24 Hr (<150) mg/24 h Protein/Creat Ratio 24h (<0.150) Urine Albumin (%) % U Tfjxz-2-Gjhmpskz (%) % U Stssn-8-Nxpzmbtz (%) % U Beta Globulin (%) % U Gamma Globulin (%) % U Free Acme Light Ch (<=32.90) mg/L U Free Lambda Light Ch (<=3.79) mg/L U Free Acme/Lambda (<=8.69) U Abnormal Prot Band 1 (NONE DETECTED) mg/24 h U Abnormal Prot Band 2 (NONE DETECTED) mg/24 h U Abnormal Prot Band 3 (NONE DETECTED) mg/24 h Urine PEP Interpret Fluid Neutrophils % % Fluid Lymphocytes % % Fluid Meso/Macro/Alger % % Fluid Comment Pleural Fluid Source Pleural Color Pleural Appearance Pleural pH (7.3-7.4) Pleural WBC (Auto) /uL Pleural RBC (Auto) /uL Pleural Total Protein gm/dl Pleural LDH U/L Pleural Glucose mg/dl Levetiracetam (6.0-46.0) mcg/mL Serum Immunofixation Urine Immunofixation Adenovirus (PCR) Not Detected (NotDetected) B. pertussis DNA (PCR) Not Detected (NotDetected) B.parapertussis DNA PCR Not Detected (NotDetected) C. pneumoniae DNA (PCR) Not Detected (NotDetected) Coronavirus OC43 (PCR) Not Detected (NotDetected) Coronavirus HKU1 (PCR) Not Detected (NotDetected) Coronavirus 229E (PCR) Not Detected (NotDetected) SARS-CoV-2 (PCR) Not Detected (NotDetected) Coronavirus NL63 (PCR) Not Detected (NotDetected) Hepatitis A IgM Ab (NON-REACTIVE) Hep Bs Antigen (Negative) Hep B Core IgM Ab (NON-REACTIVE) Hepatitis C Antibody (Negative) Human Metapneumovir PCR Not Detected (NotDetected) Influenza Type A (PCR) Not Detected (NotDetected) Influenza Type B (PCR) Not Detected (NotDetected) M. pneumoniae (PCR) Not Detected (NotDetected) Parainfluenza 1 (PCR) Not Detected (NotDetected) Parainfluenza 2 (PCR) Not Detected (NotDetected) Parainfluenza 3 (PCR) Not Detected (NotDetected) Parainfluenza 4 (PCR) Not Detected (NotDetected) RSV (PCR) Not Detected (NotDetected) Entero/Rhino (PCR) Not Detected (NotDetected) 11/18/24 11/17/24 11/16/24 Range/Units 07:34 06:06 07:02 WBC 15.52 H 13.76 H 11.17 H (4.8-10.8) K/ul RBC 4.51 4.62 4.75 (4.20-5.40) M/uL Hgb 10.9 L 11.1 L 11.4 L (12.0-16.0) g/dl Hct 36.7 L 38.2 38.0 (37.0-47.0) % MCV 81.4 82.7 80.0 (80.0-100.0) fL MCH 24.2 L 24.0 L 24.0 L (25.0-34.0) pg MCHC 29.7 L 29.1 L 30.0 L (32.0-36.0) g/dL RDW Std Deviation 65.1 H 60.8 H 55.4 H (36.4-46.3) fL RDW Coeff of Claudette 23.4 H 23.3 H 22.5 H (11.5-14.5) % Plt Count 177 160 127 L (130-400) K/uL MPV 10.7 11.2 10.7 (9.4-12.4) fL Immature Gran % (Auto) 2.8 2.5 % Neut % (Auto) 86.9 83.0 % Lymph % (Auto) 3.9 5.9 % Alger % (Auto) 6.0 8.3 % Eos % (Auto) 0.0 0.0 % Baso % (Auto) 0.4 0.3 % Neut # (Auto) 13.48 H 11.43 H (1.40-6.50) K/uL Lymph # (Auto) 0.61 L 0.81 L (1.20-3.40) K/uL Alger # (Auto) 0.93 H 1.14 H (0.11-0.59) K/uL Eos # (Auto) 0.00 0.00 (0.00-0.50) K/uL Baso # (Auto) 0.06 0.04 (0.00-0.20) K/uL Immature Gran # (Auto) 0.44 H 0.34 H (0.01-0.20) K/uL Absolute Nucleated RBC (0.00-0.12) K/uL Nucleated RBC % (auto) % Platelet Estimate (Normal) Polychromasia 1+ 1+ Hypochromasia Present Anisocytosis Present Present Target Cells 1+ Tear Drop Cells Ovalocytes 1+ Stomatocytes Echinocytes ESR 29 (0-30) mm/hr VBG pH (7.36-7.41) VBG pCO2 (38-50) mmHg VBG pO2 mmHg VBG HCO3 mmol/L VBG O2 Saturation % VBG Base Excess mEq/L Sodium 134 L 135 L 135 L (136-145) mmol/L Potassium 3.8 4.2 4.8 (3.5-5.1) mmol/L Chloride 94 L 94 L 97 L (98-107) mmol/L Carbon Dioxide 34 H 34 H 30 (21-32) mmol/L Anion Gap 6 7 8 (3-11) BUN 20 24 H 27 H (6-23) mg/dl Creatinine 0.81 0.83 0.80 (0.6-1.2) mg/dl Est Cr Clr Drug Dosing 43.3 44.6 43.2 ml/min eGFR 81.52 79.16 82.74 Cystatin C (0.52-1.14) mg/L Est GFR (Cystatin C) (>=60) BUN/Creatinine Ratio 24.7 H 28.9 H 33.8 H (10-20) Glucose 90 84 88 (70-99(Fasting)) mg/dl Lactate (0.4-2.0) mmol/L Calcium 8.7 9.1 9.0 (8.6-10.3) mg/dl Phosphorus (2.5-4.9) mg/dl Total Bilirubin 1.3 H 1.5 H (0.2-1.0) mg/dl Direct Bilirubin (0-0.2) mg/dl AST 16 16 (13-39) U/L ALT 21 24 (7-52) U/L Alkaline Phosphatase 161 H 153 H (34-104) U/L C-Reactive Protein 9.11 H (0-0.5) mg/dl B-Natriuretic Peptide (0-100) pg/ml Total Protein 6.2 6.0 (6.0-8.3) gm/dl Total Protein (PEP) Albumin 3.1 L 3.1 L (3.4-5.0) gm/dl Albumin (PEP) Globulin 3.1 2.9 (2.5-4.0) gm/dl Albumin/Globulin Ratio 1.0 1.1 (0.9-2) Kjdpf-3-Zfwmcdops Vmgtv-0-Hytnpsawn Ocmw-7-Qyuwgvwk Tvvn-8-Ybijpciu Gamma Globulins Monoclonal Peak 3 Ser Monoclonl Protein Ser Monoclonal Prot 2 PEP Interpretation 25-OH Vitamin D Total (30-100) ng/ml Procalcitonin (0-0.5) ng/ml PTH Intact (12.0-88.0) pg/ml Ur Creatinine 24 Hour (0.50-2.15) g/24 h Ur Total Protein 24 Hr (<150) mg/24 h Protein/Creat Ratio 24h (<0.150) Urine Albumin (%) % U Oubta-3-Lriwryba (%) % U Coknu-4-Ikeziowd (%) % U Beta Globulin (%) % U Gamma Globulin (%) % U Free Acme Light Ch (<=32.90) mg/L U Free Lambda Light Ch (<=3.79) mg/L U Free Acme/Lambda (<=8.69) U Abnormal Prot Band 1 (NONE DETECTED) mg/24 h U Abnormal Prot Band 2 (NONE DETECTED) mg/24 h U Abnormal Prot Band 3 (NONE DETECTED) mg/24 h Urine PEP Interpret Fluid Neutrophils % % Fluid Lymphocytes % % Fluid Meso/Macro/Alger % % Fluid Comment Pleural Fluid Source Pleural Color Pleural Appearance Pleural pH (7.3-7.4) Pleural WBC (Auto) /uL Pleural RBC (Auto) /uL Pleural Total Protein gm/dl Pleural LDH U/L Pleural Glucose mg/dl Levetiracetam (6.0-46.0) mcg/mL Serum Immunofixation Urine Immunofixation Adenovirus (PCR) (NotDetected) B. pertussis DNA (PCR) (NotDetected) B.parapertussis DNA PCR (NotDetected) C. pneumoniae DNA (PCR) (NotDetected) Coronavirus OC43 (PCR) (NotDetected) Coronavirus HKU1 (PCR) (NotDetected) Coronavirus 229E (PCR) (NotDetected) SARS-CoV-2 (PCR) (NotDetected) Coronavirus NL63 (PCR) (NotDetected) Hepatitis A IgM Ab (NON-REACTIVE) Hep Bs Antigen (Negative) Hep B Core IgM Ab (NON-REACTIVE) Hepatitis C Antibody (Negative) Human Metapneumovir PCR (NotDetected) Influenza Type A (PCR) (NotDetected) Influenza Type B (PCR) (NotDetected) M. pneumoniae (PCR) (NotDetected) Parainfluenza 1 (PCR) (NotDetected) Parainfluenza 2 (PCR) (NotDetected) Parainfluenza 3 (PCR) (NotDetected) Parainfluenza 4 (PCR) (NotDetected) RSV (PCR) (NotDetected) Entero/Rhino (PCR) (NotDetected) 11/15/24 11/14/24 11/13/24 Range/Units 06:05 06:13 Unknown WBC 8.76 9.91 (4.8-10.8) K/ul RBC 4.47 4.37 (4.20-5.40) M/uL Hgb 10.5 L 10.4 L (12.0-16.0) g/dl Hct 35.1 L 33.5 L (37.0-47.0) % MCV 78.5 L 76.7 L (80.0-100.0) fL MCH 23.5 L 23.8 L (25.0-34.0) pg MCHC 29.9 L 31.0 L (32.0-36.0) g/dL RDW Std Deviation 55.1 H 53.3 H (36.4-46.3) fL RDW Coeff of Claudette 21.7 H 20.9 H (11.5-14.5) % Plt Count 96 L 81 L (130-400) K/uL MPV (9.4-12.4) fL Immature Gran % (Auto) 4.1 3.1 % Neut % (Auto) 78.1 82.5 % Lymph % (Auto) 8.0 4.9 % Alger % (Auto) 9.5 9.2 % Eos % (Auto) 0.0 0.0 % Baso % (Auto) 0.3 0.3 % Neut # (Auto) 6.84 H 8.17 H (1.40-6.50) K/uL Lymph # (Auto) 0.70 L 0.49 L (1.20-3.40) K/uL Alger # (Auto) 0.83 H 0.91 H (0.11-0.59) K/uL Eos # (Auto) 0.00 0.00 (0.00-0.50) K/uL Baso # (Auto) 0.03 0.03 (0.00-0.20) K/uL Immature Gran # (Auto) 0.36 H 0.31 H (0.01-0.20) K/uL Absolute Nucleated RBC 0.02 (0.00-0.12) K/uL Nucleated RBC % (auto) 0.2 % Platelet Estimate (Normal) Polychromasia 1+ 1+ Hypochromasia Present Anisocytosis Present Present Target Cells 1+ 1+ Tear Drop Cells Ovalocytes Stomatocytes Echinocytes 1+ ESR (0-30) mm/hr VBG pH (7.36-7.41) VBG pCO2 (38-50) mmHg VBG pO2 mmHg VBG HCO3 mmol/L VBG O2 Saturation % VBG Base Excess mEq/L Sodium 138 136 (136-145) mmol/L Potassium 4.0 D 3.0 L D (3.5-5.1) mmol/L Chloride 97 L 96 L (98-107) mmol/L Carbon Dioxide 34 H 31 (21-32) mmol/L Anion Gap 7 9 (3-11) BUN 24 H 30 H (6-23) mg/dl Creatinine 0.79 0.85 D (0.6-1.2) mg/dl Est Cr Clr Drug Dosing 43.7 42.9 ml/min eGFR 84.00 76.93 Cystatin C (0.52-1.14) mg/L Est GFR (Cystatin C) (>=60) BUN/Creatinine Ratio 30.4 H 35.3 H (10-20) Glucose 80 93 (70-99(Fasting)) mg/dl Lactate (0.4-2.0) mmol/L Calcium 8.6 8.3 L (8.6-10.3) mg/dl Phosphorus 2.7 2.6 (2.5-4.9) mg/dl Total Bilirubin 2.2 H (0.2-1.0) mg/dl Direct Bilirubin (0-0.2) mg/dl AST 18 (13-39) U/L ALT 38 (7-52) U/L Alkaline Phosphatase 157 H (34-104) U/L C-Reactive Protein (0-0.5) mg/dl B-Natriuretic Peptide (0-100) pg/ml Total Protein 5.4 L (6.0-8.3) gm/dl Total Protein (PEP) Albumin 2.9 L 2.9 L (3.4-5.0) gm/dl Albumin (PEP) Globulin 2.5 (2.5-4.0) gm/dl Albumin/Globulin Ratio 1.2 (0.9-2) Nixdm-6-Ewkzpmqjr Wiyqd-0-Sacbqefse Vnzn-3-Jxdgudlx Tpdr-7-Jbpfkfat Gamma Globulins Monoclonal Peak 3 Ser Monoclonl Protein Ser Monoclonal Prot 2 PEP Interpretation 25-OH Vitamin D Total 96.7 (30-100) ng/ml Procalcitonin (0-0.5) ng/ml PTH Intact 59.0 (12.0-88.0) pg/ml Ur Creatinine 24 Hour (0.50-2.15) g/24 h Ur Total Protein 24 Hr (<150) mg/24 h Protein/Creat Ratio 24h (<0.150) Urine Albumin (%) % U Sjvud-3-Eluewsjc (%) % U Sfnop-6-Wkjdudzr (%) % U Beta Globulin (%) % U Gamma Globulin (%) % U Free Acme Light Ch (<=32.90) mg/L U Free Lambda Light Ch (<=3.79) mg/L U Free Acme/Lambda (<=8.69) U Abnormal Prot Band 1 (NONE DETECTED) mg/24 h U Abnormal Prot Band 2 (NONE DETECTED) mg/24 h U Abnormal Prot Band 3 (NONE DETECTED) mg/24 h Urine PEP Interpret Fluid Neutrophils % 84 % Fluid Lymphocytes % 8 % Fluid Meso/Macro/Alger % 8 % Fluid Comment Pleural Fluid Source Left Lung Pleural Color Red Pleural Appearance Cloudy Pleural pH 7.37 (7.3-7.4) Pleural WBC (Auto) 3173 /uL Pleural RBC (Auto) 94859 /uL Pleural Total Protein < 3.0 gm/dl Pleural LDH 252 U/L Pleural Glucose 111 mg/dl Levetiracetam (6.0-46.0) mcg/mL Serum Immunofixation SEE NOTE Urine Immunofixation Adenovirus (PCR) (NotDetected) B. pertussis DNA (PCR) (NotDetected) B.parapertussis DNA PCR (NotDetected) C. pneumoniae DNA (PCR) (NotDetected) Coronavirus OC43 (PCR) (NotDetected) Coronavirus HKU1 (PCR) (NotDetected) Coronavirus 229E (PCR) (NotDetected) SARS-CoV-2 (PCR) (NotDetected) Coronavirus NL63 (PCR) (NotDetected) Hepatitis A IgM Ab NON-REACTIVE (NON-REACTIVE) Hep Bs Antigen Negative (Negative) Hep B Core IgM Ab NON-REACTIVE (NON-REACTIVE) Hepatitis C Antibody Negative (Negative) Human Metapneumovir PCR (NotDetected) Influenza Type A (PCR) (NotDetected) Influenza Type B (PCR) (NotDetected) M. pneumoniae (PCR) (NotDetected) Parainfluenza 1 (PCR) (NotDetected) Parainfluenza 2 (PCR) (NotDetected) Parainfluenza 3 (PCR) (NotDetected) Parainfluenza 4 (PCR) (NotDetected) RSV (PCR) (NotDetected) Entero/Rhino (PCR) (NotDetected) 11/13/24 11/13/24 11/13/24 Range/Units 12:00 06:16 00:09 WBC 11.42 H (4.8-10.8) K/ul RBC 4.63 (4.20-5.40) M/uL Hgb 11.2 L (12.0-16.0) g/dl Hct 35.5 L (37.0-47.0) % MCV 76.7 L (80.0-100.0) fL MCH 24.2 L (25.0-34.0) pg MCHC 31.5 L (32.0-36.0) g/dL RDW Std Deviation 54.2 H (36.4-46.3) fL RDW Coeff of Claudette 20.7 H (11.5-14.5) % Plt Count 68 L (130-400) K/uL MPV (9.4-12.4) fL Immature Gran % (Auto) 1.3 % Neut % (Auto) 85.6 % Lymph % (Auto) 3.9 % [place] % (Auto) 9.0 % Eos % (Auto) 0.0 % Baso % (Auto) 0.2 % Neut # (Auto) 9.77 H (1.40-6.50) K/uL Lymph # (Auto) 0.45 L (1.20-3.40) K/uL [place] # (Auto) 1.03 H (0.11-0.59) K/uL Eos # (Auto) 0.00 (0.00-0.50) K/uL Baso # (Auto) 0.02 (0.00-0.20) K/uL Immature Gran # (Auto) 0.15 (0.01-0.20) K/uL Absolute Nucleated RBC 0.02 (0.00-0.12) K/uL Nucleated RBC % (auto) 0.2 % Platelet Estimate Decreased L (Normal) Polychromasia 1+ Hypochromasia Present Anisocytosis Present Target Cells 1+ Tear Drop Cells 1+ Ovalocytes 1+ Stomatocytes Echinocytes ESR (0-30) mm/hr VBG pH (7.36-7.41) VBG pCO2 (38-50) mmHg VBG pO2 mmHg VBG HCO3 mmol/L VBG O2 Saturation % VBG Base Excess mEq/L Sodium 134 L (136-145) mmol/L Potassium 3.8 (3.5-5.1) mmol/L Chloride 97 L (98-107) mmol/L Carbon Dioxide 27 (21-32) mmol/L Anion Gap 10 (3-11) BUN 45 H (6-23) mg/dl Creatinine 1.24 H (0.6-1.2) mg/dl Est Cr Clr Drug Dosing 29.5 ml/min eGFR 48.90 Cystatin C (0.52-1.14) mg/L Est GFR (Cystatin C) (>=60) BUN/Creatinine Ratio 36.3 H (10-20) Glucose 104 H (70-99(Fasting)) mg/dl Lactate (0.4-2.0) mmol/L Calcium 9.0 (8.6-10.3) mg/dl Phosphorus 3.4 (2.5-4.9) mg/dl Total Bilirubin 3.2 H (0.2-1.0) mg/dl Direct Bilirubin 1.7 H (0-0.2) mg/dl AST 30 (13-39) U/L ALT 58 H (7-52) U/L Alkaline Phosphatase 182 H (34-104) U/L C-Reactive Protein (0-0.5) mg/dl B-Natriuretic Peptide (0-100) pg/ml Total Protein 6.1 (6.0-8.3) gm/dl Total Protein (PEP) Albumin 3.5 (3.4-5.0) gm/dl Albumin (PEP) Globulin 2.6 (2.5-4.0) gm/dl Albumin/Globulin Ratio 1.3 (0.9-2) Dzdno-3-Khdicsiay Sdnfi-0-Nqlqgprtc Wpqx-4-Qeeutevm Iwne-3-Ctnwmwsg Gamma Globulins Monoclonal Peak 3 Ser Monoclonl Protein Ser Monoclonal Prot 2 PEP Interpretation 25-OH Vitamin D Total (30-100) ng/ml Procalcitonin 0.96 H (0-0.5) ng/ml PTH Intact (12.0-88.0) pg/ml Ur Creatinine 24 Hour 0.46 L (0.50-2.15) g/24 h Ur Total Protein 24 Hr 189 H (<150) mg/24 h Protein/Creat Ratio 24h 0.409 H (<0.150) Urine Albumin (%) 37 % U Mratf-1-Hgzjoszz (%) 13 % U Ivour-9-Iakrhbiz (%) 21 % U Beta Globulin (%) 10 % U Gamma Globulin (%) 18 % U Free Acme Light Ch (<=32.90) mg/L U Free Lambda Light Ch (<=3.79) mg/L U Free Acme/Lambda (<=8.69) U Abnormal Prot Band 1 DNR (NONE DETECTED) mg/24 h U Abnormal Prot Band 2 DNR (NONE DETECTED) mg/24 h U Abnormal Prot Band 3 DNR (NONE DETECTED) mg/24 h Urine PEP Interpret SEE NOTE Fluid Neutrophils % % Fluid Lymphocytes % % Fluid Meso/Macro/Alger % % Fluid Comment Pleural Fluid Source Pleural Color Pleural Appearance Pleural pH (7.3-7.4) Pleural WBC (Auto) /uL Pleural RBC (Auto) /uL Pleural Total Protein gm/dl Pleural LDH U/L Pleural Glucose mg/dl Levetiracetam (6.0-46.0) mcg/mL Serum Immunofixation Urine Immunofixation SEE NOTE Adenovirus (PCR) (NotDetected) B. pertussis DNA (PCR) (NotDetected) B.parapertussis DNA PCR (NotDetected) C. pneumoniae DNA (PCR) (NotDetected) Coronavirus OC43 (PCR) (NotDetected) Coronavirus HKU1 (PCR) (NotDetected) Coronavirus 229E (PCR) (NotDetected) SARS-CoV-2 (PCR) (NotDetected) Coronavirus NL63 (PCR) (NotDetected) Hepatitis A IgM Ab (NON-REACTIVE) Hep Bs Antigen (Negative) Hep B Core IgM Ab (NON-REACTIVE) Hepatitis C Antibody (Negative) Human Metapneumovir PCR (NotDetected) Influenza Type A (PCR) (NotDetected) Influenza Type B (PCR) (NotDetected) M. pneumoniae (PCR) (NotDetected) Parainfluenza 1 (PCR) (NotDetected) Parainfluenza 2 (PCR) (NotDetected) Parainfluenza 3 (PCR) (NotDetected) Parainfluenza 4 (PCR) (NotDetected) RSV (PCR) (NotDetected) Entero/Rhino (PCR) (NotDetected) 11/12/24 11/11/24 11/08/24 Range/Units 23:24 06:45 Unknown WBC 12.72 H (4.8-10.8) K/ul RBC 5.15 (4.20-5.40) M/uL Hgb 12.2 (12.0-16.0) g/dl Hct 39.3 (37.0-47.0) % MCV 76.3 L (80.0-100.0) fL MCH 23.7 L (25.0-34.0) pg MCHC 31.0 L (32.0-36.0) g/dL RDW Std Deviation 54.4 H (36.4-46.3) fL RDW Coeff of Claudette 21.3 H (11.5-14.5) % Plt Count 67 L (130-400) K/uL MPV (9.4-12.4) fL Immature Gran % (Auto) 1.1 % Neut % (Auto) 84.2 % Lymph % (Auto) 4.4 % Alger % (Auto) 10.1 % Eos % (Auto) 0.0 % Baso % (Auto) 0.2 % Neut # (Auto) 10.72 H (1.40-6.50) K/uL Lymph # (Auto) 0.56 L (1.20-3.40) K/uL Alger # (Auto) 1.28 H (0.11-0.59) K/uL Eos # (Auto) 0.00 (0.00-0.50) K/uL Baso # (Auto) 0.02 (0.00-0.20) K/uL Immature Gran # (Auto) 0.14 (0.01-0.20) K/uL Absolute Nucleated RBC (0.00-0.12) K/uL Nucleated RBC % (auto) % Platelet Estimate (Normal) Polychromasia 1+ Hypochromasia Anisocytosis Present Target Cells Tear Drop Cells Ovalocytes Stomatocytes Echinocytes 1+ ESR (0-30) mm/hr VBG pH 7.37 (7.36-7.41) VBG pCO2 45 (38-50) mmHg VBG pO2 58 mmHg VBG HCO3 26 mmol/L VBG O2 Saturation 86.9 % VBG Base Excess 0.3 mEq/L Sodium 132 L (136-145) mmol/L Potassium 4.1 (3.5-5.1) mmol/L Chloride 98 (98-107) mmol/L Carbon Dioxide 25 (21-32) mmol/L Anion Gap 9 (3-11) BUN 48 H (6-23) mg/dl Creatinine 1.30 H (0.6-1.2) mg/dl Est Cr Clr Drug Dosing 28.2 ml/min eGFR 46.21 Cystatin C 2.29 H (0.52-1.14) mg/L Est GFR (Cystatin C) 24 L (>=60) BUN/Creatinine Ratio 36.9 H (10-20) Glucose 119 H (70-99(Fasting)) mg/dl Lactate 1.6 (0.4-2.0) mmol/L Calcium 8.5 L (8.6-10.3) mg/dl Phosphorus (2.5-4.9) mg/dl Total Bilirubin 2.5 H (0.2-1.0) mg/dl Direct Bilirubin (0-0.2) mg/dl AST 42 H (13-39) U/L ALT 75 H (7-52) U/L Alkaline Phosphatase 241 H (34-104) U/L C-Reactive Protein (0-0.5) mg/dl B-Natriuretic Peptide (0-100) pg/ml Total Protein 5.9 L (6.0-8.3) gm/dl Total Protein (PEP) Cancelled Albumin 2.7 L (3.4-5.0) gm/dl Albumin (PEP) Cancelled Globulin 3.2 (2.5-4.0) gm/dl Albumin/Globulin Ratio 0.8 L (0.9-2) Yvypx-6-Furtmauqz Cancelled Whuxr-2-Fgkihtrcw Cancelled Uwbg-9-Wqanqkzh Cancelled Yjnt-0-Osxzxnrx Cancelled Gamma Globulins Cancelled Monoclonal Peak 3 Cancelled Ser Monoclonl Protein Cancelled Ser Monoclonal Prot 2 Cancelled PEP Interpretation Cancelled 25-OH Vitamin D Total (30-100) ng/ml Procalcitonin (0-0.5) ng/ml PTH Intact (12.0-88.0) pg/ml Ur Creatinine 24 Hour (0.50-2.15) g/24 h Ur Total Protein 24 Hr (<150) mg/24 h Protein/Creat Ratio 24h (<0.150) Urine Albumin (%) % U Pkfbe-1-Qmiycinp (%) % U Cefrw-5-Mqkknrvb (%) % U Beta Globulin (%) % U Gamma Globulin (%) % U Free Acme Light Ch 157.22 H (<=32.90) mg/L U Free Lambda Light Ch 64.09 H (<=3.79) mg/L U Free Acme/Lambda 2.45 (<=8.69) U Abnormal Prot Band 1 (NONE DETECTED) mg/24 h U Abnormal Prot Band 2 (NONE DETECTED) mg/24 h U Abnormal Prot Band 3 (NONE DETECTED) mg/24 h Urine PEP Interpret Fluid Neutrophils % % Fluid Lymphocytes % % Fluid Meso/Macro/Alger % % Fluid Comment Pleural Fluid Source Pleural Color Pleural Appearance Pleural pH (7.3-7.4) Pleural WBC (Auto) /uL Pleural RBC (Auto) /uL Pleural Total Protein gm/dl Pleural LDH U/L Pleural Glucose mg/dl Levetiracetam 97.5 H (6.0-46.0) mcg/mL Serum Immunofixation Urine Immunofixation Adenovirus (PCR) (NotDetected) B. pertussis DNA (PCR) (NotDetected) B.parapertussis DNA PCR (NotDetected) C. pneumoniae DNA (PCR) (NotDetected) Coronavirus OC43 (PCR) (NotDetected) Coronavirus HKU1 (PCR) (NotDetected) Coronavirus 229E (PCR) (NotDetected) SARS-CoV-2 (PCR) (NotDetected) Coronavirus NL63 (PCR) (NotDetected) Hepatitis A IgM Ab (NON-REACTIVE) Hep Bs Antigen (Negative) Hep B Core IgM Ab (NON-REACTIVE) Hepatitis C Antibody (Negative) Human Metapneumovir PCR (NotDetected) Influenza Type A (PCR) (NotDetected) Influenza Type B (PCR) (NotDetected) M. pneumoniae (PCR) (NotDetected) Parainfluenza 1 (PCR) (NotDetected) Parainfluenza 2 (PCR) (NotDetected) Parainfluenza 3 (PCR) (NotDetected) Parainfluenza 4 (PCR) (NotDetected) RSV (PCR) (NotDetected) Entero/Rhino (PCR) (NotDetected) Diagnostic Findings Chest X-Ray 11/07/24 21:55 Exam(s): XR CXR 1 VIEW EXAM: XR Chest, 1 View CLINICAL HISTORY: Reason for exam: Trauma. TECHNIQUE: Frontal view of the chest. COMPARISON: 08/19/2024 FINDINGS: Lungs: Left basilar airspace disease, similar to prior. Mild right basilar opacities suggesting atelectasis, similar to prior. Interstitial prominence bilaterally. Pleural space: Small bilateral pleural effusions, left larger than right. No pneumothorax. Heart: No cardiomegaly. Enlarged pulmonary outflow tract suggesting pulmonary arterial hypertension. Bones/joints: Sternotomy. No acute osseous findings. IMPRESSION: 1. Left basilar airspace disease, similar to prior. 2. Small bilateral pleural effusions, left larger than right. 3. Interstitial prominence bilaterally. Appearance is similar to prior and may be chronic. Component of pulmonary edema may be present as well. Electronically signed by: Crys Hester M.D. 11/07/24 23:[address] 11/07/24 21:55 Exam(s): CT L SPINE EXAM: CT Lumbar Spine Without Intravenous Contrast CLINICAL HISTORY: Reason for exam: trauma. TECHNIQUE: Axial computed tomography images of the lumbar spine without intravenous contrast. CTDI is 38.64 mGy and DLP is 546.36 mGy-cm. Automated exposure control was utilized for the study. A dose lowering technique was utilized adhering to the principles of ALARA. COMPARISON: No relevant prior studies available. FINDINGS: Vertebrae: Osteopenia. No acute fracture or traumatic subluxation. Discs/spinal canal/neural foramina: Disc heights maintained. No spinal canal stenosis. Soft tissues: Unremarkable. Vasculature: Atherosclerotic vascular disease. Other findings: Multiple focal osseous lucencies. IMPRESSION: No acute osseous findings. Multiple focal osseous lucencies. Appearance could relate to metabolic bone disease and/or myeloma. Correlate clinically. Electronically signed by: Crys Hester M.D. 11/08/24 00:[address] 11/07/24 21:55 Exam(s): CT T SPINE EXAM: CT Thoracic Spine Without Intravenous Contrast CLINICAL HISTORY: Reason for exam: trauma. TECHNIQUE: Axial computed tomography images of the thoracic spine without intravenous contrast. CTDI is 38.64 mGy and DLP is 546.36 mGy-cm. Automated exposure control was utilized for the study. A dose lowering technique was utilized adhering to the principles of ALARA. COMPARISON: No relevant prior studies available. FINDINGS: Vertebrae: Osteopenia. Multiple focus osseous lucencies. No acute fracture or subluxation. Discs/spinal canal/neural foramina: Disc degeneration in the midthoracic spine. No spinal canal stenosis. Soft tissues: Unremarkable. Pleural space: Small akij-anvvdtj-ahoc-right pleural effusions. IMPRESSION: No acute osseous findings. Multiple focus osseous lucencies. Appearance could relate to metabolic bone disease and/or myeloma. Correlate clinically. Electronically signed by: Crys Hester M.D. 11/08/24 00:12 AM Abdomen/Pelvis CT 11/07/24 22:55 Exam(s): CT ABDOMEN + PELVIS Without Contrast EXAM: CT Abdomen and Pelvis Without Intravenous Contrast CLINICAL HISTORY: Reason for exam: trauma. TECHNIQUE: Axial computed tomography images of the abdomen and pelvis without intravenous contrast. CTDI is 38.64 mGy and DLP is 546.36 mGy-cm. Automated exposure control was utilized for the study. A dose lowering technique was utilized adhering to the principles of ALARA. COMPARISON: No relevant prior studies available. FINDINGS: Lung bases: Reported separately. ABDOMEN: Liver: Unremarkable. Gallbladder and bile ducts: Cholecystectomy. No ductal dilation. Pancreas: Unremarkable. No ductal dilation. Spleen: Calcified splenic granulomata. Adrenals: Unremarkable. No mass. Kidneys and ureters: Unremarkable. No hydronephrosis or radiopaque stones. Stomach and bowel: No bowel obstruction. Colonic wall thickening. PELVIS: Appendix: Appendix not visualized. Bladder: Unremarkable urinary bladder. No stones. Reproductive: Hysterectomy. ABDOMEN and PELVIS: Intraperitoneal space: Trace ascites and mesenteric edema. No free air. Bones/joints: Osteopenia. Multiple focal osseous lucencies. No acute fracture. No dislocation. Soft tissues: Anasarca. Vasculature: Atherosclerotic vascular disease. No aortic aneurysm. Lymph nodes: Unremarkable. No enlarged lymph nodes. IMPRESSION: 1. Multiple focal osseous lucencies. Appearance could be related to metabolic bone disease and/or myeloma. Correlate clinically. 2. Colonic wall thickening. Appearance raises concern for colitis. Correlate clinically. 3. No acute traumatic findings. Electronically signed by: Crys Hester M.D. 11/08/24 00:[address] 11/07/24 22:55 Exam(s): CT C SPINE EXAM: CT Cervical Spine Without Intravenous Contrast CLINICAL HISTORY: Reason for exam: Trauma. TECHNIQUE: Axial computed tomography images of the cervical [place] [address] mGy and DLP is 546.36 mGy-cm. Automated exposure control was utilized for the study. A dose lowering technique was utilized adhering to the principles of ALARA. COMPARISON: No relevant prior studies available. FINDINGS: Vertebrae: Osteopenia. Scattered focal lucencies throughout the skeleton. No acute fracture or traumatic subluxation. Discs/spinal canal/neural foramina: Mild multilevel disc degeneration. Disc-osteophyte complexes producing multilevel spinal canal stenosis, moderate at C4-C5. Soft tissues: Unremarkable. IMPRESSION: 1. No acute fracture or traumatic subluxation. 2. Osteopenia. Scattered focal lucencies throughout the skeleton. Overall appearance could represent metabolic bone disease or myeloma. Correlate clinically. Electronically signed by: Crys Hester M.D. 11/08/24 00:[address] 11/07/24 22:55 Exam(s): CT CHEST Without Contrast EXAM: CT Chest Without Intravenous Contrast CLINICAL HISTORY: Reason for exam: trauma. TECHNIQUE: Axial computed tomography images of the chest without intravenous contrast. CTDI is 38.64 mGy and DLP is 546.36 mGy-cm. Automated exposure control was utilized for the study. A dose lowering technique was utilized adhering to the principles of ALARA. COMPARISON: 06/04/2024 FINDINGS: Lungs: Bibasilar airspace disease, ikyo-gzuezev-glsn-right. Interstitial prominence bilaterally suggesting pulmonary edema. No pulmonary contusion. No mass. Centrilobular emphysema. Pleural space: Small bilateral pleural effusions, irtg-brrqimt-qeph- right. Left pleural effusion is partially loculated along the pulmonary fissure. Heart: Mitral annular calcification. Cardiomegaly and coronary artery atherosclerosis. No pericardial effusion. Bones/joints: Osteopenia. Scattered focal osseous lucencies. Prior sternotomy. No acute fracture or dislocation. Soft tissues: Unremarkable. Vasculature: Calcified thoracic aorta without aneurysm. Lymph nodes: No enlarged lymph nodes. IMPRESSION: 1. Small bilateral pleural effusions, qqhj-ggmkegj-exge-right. Left pleural effusion is partially loculated along the pulmonary fissure. 2. Bibasilar airspace disease, cayf-dxhbzay-cdzh-right. Atelectasis is favored. 3. Interstitial prominence bilaterally suggesting pulmonary edema. 4. Scattered focal osseous lucencies. Overall appearance could be related to metabolic bone disease and/or myeloma. Correlate clinically. Electronically signed by: Crys Hester M.D. 11/08/24 00:[address] 11/07/24 22:55 Exam(s): CT HEAD Without Contrast EXAM: CT Head Without Intravenous Contrast CLINICAL HISTORY: Reason for exam: Trauma. TECHNIQUE: Axial computed tomography images of the head/brain without intravenous contrast. CTDI is 38.64 mGy and DLP is 546.36 mGy-cm. Automated exposure control was utilized for the study. A dose lowering technique was utilized adhering to the principles of ALARA. COMPARISON: No relevant prior studies available. FINDINGS: Brain: Generalized parenchymal volume loss. Periventricular and deep cerebral white matter hypoattenuation suggesting chronic small vessel ischemic change. Chronic lacunar infarcts bilateral basal ganglia. Sheridan- white matter differentiation maintained. No hemorrhage, mass effect, parenchymal edema, or midline shift. Ventricles: No hydrocephalus. Bones/joints: No acute fracture. Soft tissues: Unremarkable. Vasculature: Intracranial atherosclerosis. Sinuses: Unremarkable as visualized. Mastoid air cells: No significant mastoid effusion. IMPRESSION: No acute intracranial process. Electronically signed by: Crys Hester M.D. 11/08/24 00:08 AM Liver Ultrasound 11/09/24 08:50 EXAM: US Abdomen Limited INDICATION: Elevated liver function tests. TECHNIQUE: Real-time ultrasound of the abdomen with image documentation. COMPARISON: No relevant prior studies available. FINDINGS: Liver: Slightly heterogeneous and echogenic. Normal size. Smooth contour. No ductal dilatation. Gallbladder and bile ducts: Cholecystectomy. No ductal dilation or stone noted. Kidneys: Right kidney: 9.5 cm long. Normal cortical thickness and echotexture. Multiple echogenic reflections typical of stones measuring up to 9 mm. No hydronephrosis. Other vasculature: Main portal vein patent. Free fluid: Trace perihepatic ascites. Pleural space: Right pleural effusion present. IMPRESSION: 1. Heterogeneous slightly echogenic liver is nonspecific. This appearance is typically related to steatosis but can be seen with other cellular disorders. 2. No biliary dilatation. 3. Nonobstructing right kidney stones. 4. Trace perihepatic ascites and right pleural effusion. ACT 112: Positive. There are findings on this exam that require communication between the performing entity and the patient following Patient Test Result Information Act ([place] ACT 112) guidelines. Electronically signed by Miriam Ratliff 11-09-2024 12:16 PM Chest X-Ray 11/12/24 23:17 Exam(s): XR CXR 1 VIEW EXAM: XR Chest, 1 View CLINICAL HISTORY: Reason for exam: increasing oxygen requirement. TECHNIQUE: Frontal view of the chest. COMPARISON: Chest x-ray: 11/07/2024 FINDINGS: Lungs: There is increasing consolidation in the noted throughout the left lower lobe. There is increasing interstitial thickening and ground- glass consolidation in the hypoaerated left upper lobe. There is increased diffuse interstitial thickening noted in the right upper lobe. There is increased interstitial thickening and atelectasis in the right lung base. There are probable bilateral pleural effusions, left greater than right. Pleural space: No pneumothorax. Heart: There is mild to moderate cardiomegaly. Median sternotomy changes are noted. Mediastinum: Unremarkable. Normal mediastinal contour. Bones/joints: See above. IMPRESSION: 1. There is increasing consolidation in the noted throughout the left lower lobe. There is increasing interstitial thickening and ground-glass consolidation in the hypoaerated left upper lobe. There is increased diffuse interstitial thickening noted in the right upper lobe. There is increased interstitial thickening and atelectasis in the right lung base. 2. There are probable bilateral pleural effusions, left greater than right. Electronically signed by: Mark Blackmon MD 11/13/24 00:14 AM Chest X-Ray 11/13/24 10:24 XR chest 1V portable CLINICAL HISTORY: S/P Thoracentesis rule out pneumothorax COMPARISON STUDY: 11/12/2024 FINDINGS: Single view erect chest demonstrates the left pleural effusion has largely been evacuated. There is no pneumothorax. Prominent reticular nodular pulmonary opacities are redemonstrated diffusely involving both lungs. Cardiomegaly persists. Median sternotomy wire sutures are noted. There is mild blunting of the right costophrenic angle with probable adjacent discoid atelectasis. There is patchy airspace opacity in the left lung base suspicious for pneumonia. IMPRESSION: Status post left thoracentesis. No evidence of pneumothorax. Bilateral interstitial opacities remain pronounced. Trace right pleural effusion suspected. Left lower lobe infiltrate present. ACT 112: Negative or not required by law. Electronically signed by: Tiarra Sepulveda M.D. 11/13/2024 10:49 AM Chest X-Ray 11/17/24 08:04 Clinical History: Recheck effusions Technique: PA and lateral views of the chest were obtained Comparison is made to the prior examination dated 11/13/2024 Findings: Again seen are extensive interstitial opacities throughout both lungs, slightly worsened. There is new alveolar opacity in the left lower lobe. The heart size is at the upper limit of normal. No definite pneumothorax is seen. There are increased small bilateral pleural effusions No fracture is noted. Sternal wires are present Impression: 1. Increased small bilateral pleural effusions 2. New left lower lobe opacity that may be due to pneumonia 3. Slightly worsened extensive diffuse interstitial opacities that could be due to atypical pneumonia or a combination of pneumonia and chronic interstitial lung disease ACT 112: Positive. There are findings on this exam that require communication between the performing entity and the patient following Patient Test Result Information Act ([place] ACT 112) guidelines. Electronically signed by Christiano Robles 11-17-2024 09:50 AM Chest X-Ray 11/19/24 07:00 EXAM: XR chest 1V portable CLINICAL HISTORY: f/u TECHNIQUE: An X-ray image of the chest is obtained in AP projection. COMPARISON: 11/17/2024 CR. FINDINGS: Pulmonary Parenchyma: Bilateral prominent interstitial markings, especially on the right showing the marked interstitial markings.. Opacification of left mid and lower zones. Thickening of minor fissure [fissural fluid] Bilateral mild pleural reaction obscuring the costophrenic recess. Heart and Mediastinum: Cardiac shadow is enlarged with bilateral hilar congestion. No mediastinal widening or masses. No hilar or mediastinal lymphadenopathy. Bony Thorax: Status of post sternotomy. Soft Tissues: Soft tissues overlying the chest wall are unremarkable. IMPRESSION: 1. Comparing the previous x-ray dated 11/17/2024 there is interval regression in bilateral pleural effusion with interval stable opacification of the left mid and lower zone and interstitial shadowing. 2. Bilateral prominent bronchovascular/interstitial markings, especially thick interstitial markings seen on the right sugegsting cardiogenic interstitial edema. 3. Opacification of left mid and lower zone. 4. Bilateral small pleural reaction obscuring the costophrenic recess. Small bilateral pleural effusion. Electronically signed by Pineda Aguilera 11-19-2024 08:40 AM PG Care Time/CCT Total # of Minutes Spent Total Time Spent with Patient: Total time spent is greater than 50% in coordination of care (as documented) at patient's floor/unit and/or counseling patient: I spent 105 minutes overall addressing this case: 15 min in medical data review/discussion with referring provider(s) and/or preparation for the visit 15 min in direct interaction with the patient/exam 45 min in Advance Care Planning/Goals of Care discussions as detailed above in note (must be >16min) 15 min in subsequent review and synthesis of assessment and plan 15 min communicating with other providers regarding the patient's case: nursing, primary team Advanced Care Planning 14011 Advanced Care Planning 30 Min [id number] Advanced Care Planning Additional 30 [place] [address] IN/OBS CONSULT LVL 4,60M (25 - SIGNIFICANT, SEPARATELY IDENTIFIABLE ) Patient Type New Diagnoses Weakness generalized R53.1 Failure to thrive in adult R62.7 Advanced care planning/counseling discussion Z71.89 Palliative care by specialist Z51.5 Additional Codes Advanced Care Planning - 17717 Advanced Care Planning 30 Min: 76241 Advanced Care Planning 30 Min ([id number]) Advanced Care Planning - 70011 Advanced Care Planning Additional 30 Min: 71156 Advanced Care Planning Additional 30 Min ([id number]) Comment [id number]. [id number]
[2024-11-19 16:22] LABS: Magnesium 1.3 mg/dl (1.7-2.4)
[2024-11-19] MEDS: MAGNESIUM SULFATE / D5W 1 GM/100 ML BAG IV ONE (16:27)
[2024-11-19 16:55] LABS: Appearance Urine Clear (Clear); Bacteria Urine Automated None Seen (None Seen); Cast Urine Automated 0-2 /lpf (0-2); Epithelial Cell Urine Auto 0-2 /hpf (0-2); Glucose Urine UA Negative (Negative); RBC Urine Automated >20 /hpf (0-2); WBC Urine Automated 0-5 /hpf (0-5)
[2024-11-20] MEDS: MAGNESIUM SULFATE / D5W 1 GM/100 ML BAG IV SCH (06:35)
[2024-11-20 07:57] LABS: Anion Gap 8 (3-11); Bilirubin,Total 1.1 mg/dl (0.2-1.0); Calcium 8.9 mg/dl (8.6-10.3); Carbon Dioxide 33 mmol/L (21-32); Chloride 94 mmol/L (98-107); Magnesium 1.9 mg/dl (1.7-2.4); Potassium 4.0 mmol/L (3.5-5.1); Sodium 135 mmol/L (136-145)
[2024-11-20 08:03] LABS: Blood Urea Nitrogen 23 mg/dl (6-23); Creatinine Clr Calc Pharmacy 31.8 ml/min; Glucose 86 mg/dl (70-99(Fasting))
--- NOTE | 2024-11-20 08:06 | Hospitalist Progress Note ---
Date of Service November 20, 2024 Assessment & Plan (1) Failure to thrive in adult: (2) Acute CHF: (3) Chronic respiratory failure with hypoxia: (4) Pneumonia: (5) BRITTNEY (acute kidney injury): (6) Bone lesion: (7) Valvular heart disease: (8) Hypomagnesemia: (9) Paroxysmal atrial flutter: Plan 64yo F presented for FAILURE TO THRIVE after unwitnessed fall at home with several weeks of poor appetite, decreased oral intake and generalized weakness. PMHx significant for afib/flutter/PSVT (on Eliquis), bioprosthetic MVR, aortic valve REPAIR, Pulmonary HTN (RVSP >60mmHg), HFpEF, COPD with chronic respiratory failure (baseline 3L NC), TIA/CVA x 2, HTN, HLD, myoclonus, underweight, severe osteoporosis, depression/anxiety, chronic opioid use, GERD, hypothyroidism * On admission, concerns for volume overloaded with edema/rales/elevated BNP however appeared intravascularly depleted. Given albumin and LR on admission and home spironolactone/lisinopril placed on hold for BRITTNEY w/ Cr to 2.9 with baseline prior around ~1.4. Also with with left pleural effusion >R, joyce rning for HF vs infectious vs other and pulmonology consulted and underwent thoracentesis 11/13 for 1.4L and appears transudative, ?related to HF/renal dysfunction. Has been seen by nephrology, oncology, and pulmonology during inpatient stay, currently undergoing antibiotic treatment and diuretics to help with symptoms and palliative medicine consulted for goals discussion given lung/heart/kidney disease and repeat hospitalizations as was hospitalized 06/04-06/07, 08/17-08/24 indicating decline over past several months. Also concerns for possible underlying malignancy process w/ skeletal lesions and SPEP/UPEP sent, [place] planned and eventual rehab at [facility] #Failure to thrive in the adult - progressive decline with poor PO intake/progressive comorbidities. Tx CHF/respiratory failure as below Dieticians consult appreciated - diet liberalized, MVI added, continue protein supplements Palliative consulted - see note 11/20, will follow up later this week vs outpatient. Remains full code at this time but does understand progression of disease process/concerns possible underlying malignancy/etc PT/OT evals rec rehab --> [facility] when medically stable but attempting to get back to baseline O2 prior as outlined below #Acute on chronic HFpEF/Pleural effusions #Afib/flutter, hx PSVT 2D echo 11/08/2024: 55-60%, RVSP> 60 mmHg, moderate to severe AR, bioprosthetic mitral valve, moderate concentric LVH, RV systolic function mildly reduced BNP elevated on admission w/ effusion concerning for overload but as above noted to be intravascularly deplete and given albumin on admission w/ IVF CXR w/ large L effusion, increased O2 demands-->Pulm consulted s/p thoracentesis 11/04 as above, transudative. Path NEG for malignancy Eliquis resumed, cont'd metoprolol Lasix started 40mg daily 11/13 when Cr 1.2, decreased to 20mg on 11/14 and continued Spironolactone resumed 11/15 BNP elevated on 11/18 to 2771, additional 20mg IV lasix provided On evaluation 11/19, 2+ b/l LE edema and elevated ALP consistent w/ hepatic congestion and suspect contributing to poor PO intake and increased O2 demands REPEATED LASIX 20mg IV K replacement w improvement and stable 4.0 w/ underlying afib and checked mag given prior low and was LOW 1.3/IV replacement ordered Presently, Edema IMPROVED, 1+, BUN/Cr 23/1.06 and lasix on hold/spironolactone increased to 50mg daily Monitor weight/I&O/volume status and aiming for net negative Wt 81lb, CHF clinic noting 80-83lb but w/ progressive weight loss ? Has been off her dapagliflozin since admission, ?able to resume in AM 11/20 #Chronic respiratory failure, chronic O2 therapy #COPD, emphysema #Possible Atypical Pneumonia Concerns for increased opacities on CXR 11/17, procal added given increased leukocytosis and O2 requirement to 5-6L NC with baseline 3L Procal elevated to 0.96. CRP 9 Suspected increased O2 needs 2nd to HF/elevated RSVP. On eliquis BID. Abx broadened to Zosyn, Doxy -- continued WBC trending down however increased today but reports feeling better/afebrile Blood cx pending Biofire checked , neg 11/18. Pulm notified/following -- added hypertonic saline, budesonide, formoterol nebs. Sending out rheum labs/JAYESH/sjogrens/etc--> WILL NEED FOLLOW UP Down to 3.5-4L and currently 3.5 and will see above further titration given SpO2 94% Diuretics as above. ? amiodarone use - continued as SR but could be entertained to stop #Hypomagnesemia- mag added to labs evening 11/19 given hx afib and prior lows --> LOW 1.3, IV replacement ordered. Currently 1.9 and will keep closer to 2/monitor repeat #BRITTNEY- Resolved Baseline Cr 1.4, Cr 2.92 on admission. Likely multifactorial, decreased PO intake/med effects/heart failure, also elevated keppra level to 97.5 Lisinopril held, diuretics resumed/adjusted per nephrology when Cr improved to 1.2 and keppra reduced (will need repeat keppra level outpatient) Cr continued improvement since resumption of diuretics Will continue off lisinopril for now while increasing spironolactone Renal dose meds/avoid toxins BMP in AM #Elevated INR | Elevated LFTs| Thrombocytopenia | CAD | Hx TIA/CVA INR elevated on admission, suspected poor nutrition status and given Vitamin K 5mg x 1 EKG NSR Hepatitis panel negative. Liver US slightly echogenic but not specific, no dilation. LFTs/Bili downtrending -suspect hepatic congestion from CHF. Remains on amiodarone (?pulm tox issues), metoprolol 12.5mg daily Continues on Eliquis and plavix (hx of TIA/CVA, no stents) #Elevated Troponin-EKG with no acute ischemic changes, significant for a 1st degree block, rightward axis, possible left atrial enlargement. Troponin 167--> 214--> 220. Repeat echo w/o wma, no CP reported. Downgraded off telemetry #Hypothyroidism -TSH up 6.9 but w/ normal T4/T3- per supervising provider to continue current Synthroid but would rec follow up outpt to see about adjustment #Skeletal lesions - concerning for multiple myeloma vs. metabolic bone disease vs malignancy (interesting Ca levels are low) Periph smear w/ anemia likely 2nd to chronic disease vs MEDHAT s/p Venofr IV x 3 Vit D wnl Discussed w/ IR about poss bone marrow bx- images reviewed and does not look like multiple myeloma, reporting the lesions are very small and look like osteopenia with metabolic issues. Would recommend repeat CT in 6 months and only consider bx if labs concerning for multiple myeloma Oncology consulted, rec SPEP, 24hr UPEP, free light chain assay --> kappa light chains elevated but UPEP reports "Pattern consistent with mixed glomerular and tubular proteinuria" and per oncology "probably just bad osteoporosis" Recently started on abaloparatide for osteoporosis - rec continue at discharge Outpatient rec for PET for further eval to be entertained Palliative consult as above DVT Proph-Eliquis Disposition: continued inpatient stay, adjustment to diuretics and follow up chest xray/titration O2 as able. Continues on nebulized inhalers and suspect benefit to continue this formulation at discharge given frailty. Palliative to follow (inpatient vs outpatient pending schedule). Remains full code at this time. Outpt CHF, pulm, onc follow up Admission and Anticipated Discharge Date Admission Date: November 08, 2024 Supervising Physician Co-Signing Physician Notes The patient was not seen by me. The chart was reviewed. Case discussed with TERRA Duncan. Agree with assessment and plan Subjective EValuated this morning, sitting up in recliner looking out the window. Urine reported darkened/tea colored last evening, concentrated today. Leg edema improved, 1+ LE. Reports improvement in PO intake/appetite today. Discussed holding off lasix but utilizing spironolactone and increasing. Sam Muñoz to take today but discussed further adjustment to meds to prvent readmission and can plan for tomorrow as patient on the fence as well. Hopefully tomorrow with outpatient follow up. She did endorse she had conversation with palliative and is open to follow up outpatient vs later this week pending course. Remains full code. Questions/concerns addressed at this time. Physical Exam Physical Exam: General: 64yo frail, cachectic female sitting up in recliner, appears feeling better today, NAD HEENT: head atraumatic, trachea midline, mm improved/stable Resp: diminished throughout, no wheezing/rales, on 3.5L, conversational dyspnea at times improved CV: regular, +systolic murmur/diastolic murmur, bilateral LE edema 1+, pulses present GI: +BS, soft/scaphoid/nontender no engel, voided in bedside commode, yellow/slightly concentrated urine MSK/Neuro: generalized weakness but nonfocal, not confused Psych: AOx3, cooperative with exam Results & Data Results & Data Vital Signs (Past 12 Hours) Vital Signs Temp Pulse Pulse Resp BP BP Pulse Ox 11/20/24 07:56 36.5 C 75 16 149/78 H 94 11/20/24 07:24 72 16 93 11/20/24 07:23 36.4 C L 75 17 121/63 94 11/19/24 20:16 O2 Del Method O2 Flow Rate 11/20/24 07:56 Nasal Cannula 3.5 11/20/24 07:24 Nasal Cannula 3.5 11/20/24 07:23 Nasal Cannula 11/19/24 20:16 Nasal Cannula 3.5 Laboratory Results 11/20/24 11/20/24 11/19/24 Range/Units 09:15 07:14 16:33 WBC 15.30 H (4.8-10.8) K/ul RBC 4.24 (4.20-5.40) M/uL Hgb 10.6 L (12.0-16.0) g/dl Hct 34.9 L (37.0-47.0) % MCV 82.3 (80.0-100.0) fL MCH 25.0 (25.0-34.0) pg MCHC 30.4 L (32.0-36.0) g/dL RDW Std Deviation 68.7 H (36.4-46.3) fL RDW Coeff of Claudette 24.6 H (11.5-14.5) % Plt Count 270 (130-400) K/uL MPV 10.4 (9.4-12.4) fL Immature Gran % (Auto) 1.8 % Neut % (Auto) 86.9 % Lymph % (Auto) 5.4 % [place] % (Auto) 5.6 % Eos % (Auto) 0.0 % Baso % (Auto) 0.3 % Neut # (Auto) 13.29 H (1.40-6.50) K/uL Lymph # (Auto) 0.82 L (1.20-3.40) K/uL [place] # (Auto) 0.86 H (0.11-0.59) K/uL Eos # (Auto) 0.00 (0.00-0.50) K/uL Baso # (Auto) 0.05 (0.00-0.20) K/uL Immature Gran # (Auto) 0.28 H (0.01-0.20) K/uL ESR 38 H (0-30) mm/hr Sodium 135 L (136-145) mmol/L Potassium 4.0 (3.5-5.1) mmol/L Chloride 94 L (98-107) mmol/L Carbon Dioxide 33 H (21-32) mmol/L Anion Gap 8 (3-11) BUN 23 (6-23) mg/dl Creatinine 1.06 (0.6-1.2) mg/dl Est Cr Clr Drug Dosing 31.8 ml/min eGFR 59.03 BUN/Creatinine Ratio 21.7 H (10-20) Glucose 86 (70-99(Fasting)) mg/dl Estimat Average Glucose Pending Hemoglobin A1c Pending Calcium 8.9 (8.6-10.3) mg/dl Magnesium 1.9 (1.7-2.4) mg/dl Total Bilirubin 1.1 H (0.2-1.0) mg/dl AST 17 (13-39) U/L ALT 12 (7-52) U/L Alkaline Phosphatase 136 H (34-104) U/L Total Creatine Kinase < 10 L (26-192) U/L C-Reactive Protein 7.92 H (0-0.5) mg/dl Total Protein 5.7 L (6.0-8.3) gm/dl Albumin 2.9 L (3.4-5.0) gm/dl Globulin 2.8 (2.5-4.0) gm/dl Albumin/Globulin Ratio 1.0 (0.9-2) Urine Color [place] Urine Appearance Clear (Clear) Urine pH 6.0 (4.5-7.5) Ur Specific [place] 1.011 (1.000-1.030) Urine Protein Negative (Negative) Urine Glucose (UA) Negative (Negative) Urine Ketones Negative (Negative) Urine Blood 3+ H (Negative) Urine Nitrite Negative (Negative) Urine Bilirubin Negative (Negative) Urine Urobilinogen Negative (Negative) Ur Leukocyte Esterase Trace H (Negative) Urine WBC (Auto) 0-5 (0-5) /hpf Urine RBC (Auto) >20 H (0-2) /hpf U Hyaline Cast (Auto) 0-2 (0-2) /lpf U Epithel Cells (Auto) 0-2 (0-2) /hpf Urine Bacteria (Auto) None Seen (None Seen) Ur Creatinine 24 Hour (0.50-2.15) g/24 h Ur Total Protein 24 Hr (<150) mg/24 h Protein/Creat Ratio 24h (<0.150) Urine Albumin (%) % U Xhdai-9-Lzdtahfn (%) % U Jpvid-2-Tfbmotvf (%) % U Beta Globulin (%) % U Gamma Globulin (%) % U Abnormal Prot Band 1 (NONE DETECTED) mg/24 h U Abnormal Prot Band 2 (NONE DETECTED) mg/24 h U Abnormal Prot Band 3 (NONE DETECTED) mg/24 h Urine PEP Interpret Urine Comment Urine Immunofixation Rheumatoid Factor Pending Cycl Citrul Peptide IgG Pending JAYESH Screen Pending SS-A/Ro Antibody Pending SS-B/La Antibody Pending VOICE SYSTEMS ENGINEER Antibody Pending 11/19/24 11/13/24 Range/Units 06:33 12:00 WBC (4.8-10.8) K/ul RBC (4.20-5.40) M/uL Hgb (12.0-16.0) g/dl Hct (37.0-47.0) % MCV (80.0-100.0) fL MCH (25.0-34.0) pg MCHC (32.0-36.0) g/dL RDW Std Deviation (36.4-46.3) fL RDW Coeff of Claudette (11.5-14.5) % Plt Count (130-400) K/uL MPV (9.4-12.4) fL Immature Gran % (Auto) % Neut % (Auto) % Lymph % (Auto) % [place] % (Auto) % Eos % (Auto) % Baso % (Auto) % Neut # (Auto) (1.40-6.50) K/uL Lymph # (Auto) (1.20-3.40) K/uL [place] # (Auto) (0.11-0.59) K/uL Eos # (Auto) (0.00-0.50) K/uL Baso # (Auto) (0.00-0.20) K/uL Immature Gran # (Auto) (0.01-0.20) K/uL ESR (0-30) mm/hr Sodium (136-145) mmol/L Potassium (3.5-5.1) mmol/L Chloride (98-107) mmol/L Carbon Dioxide (21-32) mmol/L Anion Gap (3-11) BUN (6-23) mg/dl Creatinine (0.6-1.2) mg/dl Est Cr Clr Drug Dosing ml/min eGFR BUN/Creatinine Ratio (10-20) Glucose (70-99(Fasting)) mg/dl Estimat Average Glucose Hemoglobin A1c Calcium (8.6-10.3) mg/dl Magnesium 1.3 L (1.7-2.4) mg/dl Total Bilirubin (0.2-1.0) mg/dl AST (13-39) U/L ALT (7-52) U/L Alkaline Phosphatase (34-104) U/L Total Creatine Kinase (26-192) U/L C-Reactive Protein (0-0.5) mg/dl Total Protein (6.0-8.3) gm/dl Albumin (3.4-5.0) gm/dl Globulin (2.5-4.0) gm/dl Albumin/Globulin Ratio (0.9-2) Urine Color Urine Appearance (Clear) Urine pH (4.5-7.5) Ur Specific [place] (1.000-1.030) Urine Protein (Negative) Urine Glucose (UA) (Negative) Urine Ketones (Negative) Urine Blood (Negative) Urine Nitrite (Negative) Urine Bilirubin (Negative) Urine Urobilinogen (Negative) Ur Leukocyte Esterase (Negative) Urine WBC (Auto) (0-5) /hpf Urine RBC (Auto) (0-2) /hpf U Hyaline Cast (Auto) (0-2) /lpf U Epithel Cells (Auto) (0-2) /hpf Urine Bacteria (Auto) (None Seen) Ur Creatinine 24 Hour 0.46 L (0.50-2.15) g/24 h Ur Total Protein 24 Hr 189 H (<150) mg/24 h Protein/Creat Ratio 24h 0.409 H (<0.150) Urine Albumin (%) 37 % U Xjzfd-0-Dkqyvumd (%) 13 % U Uoqfc-2-Imtdaynp (%) 21 % U Beta Globulin (%) 10 % U Gamma Globulin (%) 18 % U Abnormal Prot Band 1 DNR (NONE DETECTED) mg/24 h U Abnormal Prot Band 2 DNR (NONE DETECTED) mg/24 h U Abnormal Prot Band 3 DNR (NONE DETECTED) mg/24 h Urine PEP Interpret SEE NOTE Urine Comment Urine Immunofixation SEE NOTE Rheumatoid Factor Cycl Citrul Peptide IgG JAYESH Screen SS-A/Ro Antibody SS-B/La Antibody VOICE SYSTEMS ENGINEER Antibody PG Care Time/CCT Total # of Minutes Spent Total Time Spent with Patient: Total time spent is greater than 50% in coordination of care (as documented) at patient's floor/unit and/or counseling patient: Coding Level of Care Code 57826 SUB INP/OBS CARE 3/50MIN Diagnoses Failure to thrive in adult R62.7 Acute CHF I50.9 Chronic respiratory failure with hypoxia J96.11 Pneumonia J18.9 Laterality: left Lung location: lower lobe of lung Pneumonia type: due to unspecified organism BRITTNEY (acute kidney injury) N17.9 Bone lesion M89.9 Valvular heart disease I38 Hypomagnesemia E83.42 Paroxysmal atrial flutter I48.92 (4) Pneumonia Laterality: left Lung location: lower lobe of lung Pneumonia type: due to unspecified organism Qualified Code(s): J18.9 - Pneumonia, unspecified organism
[2024-11-20 08:16] LABS: Alanine Aminotransferase 12 U/L (7-52); Albumin Globulin Ratio 1.0 (0.9-2); Alkaline Phosphatase 136 U/L (34-104); Creatine Kinase < 10 U/L (26-192); Globulin 2.8 gm/dl (2.5-4.0); Total Protein 5.7 gm/dl (6.0-8.3)
[2024-11-20] MEDS: SPIRONOLACTONE 25 MG TAB PO SCH (09:20)
[2024-11-20 09:40] LABS: Hematocrit (blood only) 34.9 % (37.0-47.0); Hemoglobin 10.6 g/dl (12.0-16.0); Immature Granulocytes # (auto) 0.28 K/uL (0.01-0.20); Immature Granulocytes % (auto) 1.8 %; Mean Corpuscular Hemoglobin 25.0 pg (25.0-34.0); Mean Corpuscular Volume 82.3 fL (80.0-100.0); Platelet Count 270 K/uL (130-400); RDW Standard Deviation 68.7 fL (36.4-46.3); Red Blood Count 4.24 M/uL (4.20-5.40); White Blood Count 15.30 K/ul (4.8-10.8)
[2024-11-20 10:11] LABS: Hemoglobin A1C 5.5 % (4.5-5.6)
[2024-11-20 10:30] LABS: Anisocytosis Present; Poikilocytosis Present
--- NOTE | 2024-11-20 10:45 | Pulmonology Progress Note ---
Date of Service November 20, 2024 Assessment & Plan (1) Pleural effusion: (2) Cor pulmonale: (3) Pulmonary edema: (4) Emphysema/COPD: Emphysema type: centrilobular Qualified Code(s): J43.2 - Centrilobular emphysema (5) Hypoxia: (6) On home oxygen therapy: Plan 64-year-old female with past medical history of atrial fibrillation on Eliquis, CAD on plavix, bioprosthetic AVR, porcine MVR, paroxysmal supraventricular tachycardia, pulmonary hypertension, COPD, chronic hypoxic respiratory failure who wears 3 liters nasal cannula at baseline, TIA/CVA, HTN, HLD, depression, anxiety, GERD, hypothyroidism, and failure to thrive; who presented to [facility] ED on 11/08/2024 with generalized weakness and unfortunately suffered an unwitnessed fall at home with a 2.5 hr downtime with worsening hypoxia and left pleural effusion in setting of likely heart failure exacerbation with possible undiagnosed malignancy. CT chest 11/07/2024 personally reviewed: Severe centrilobular and paraseptal emphysema appreciated bilaterally Minimal bilateral apical pleural scarring Small to moderate left-sided pleural effusion atelectasis of the left lower lobe, small left-sided pleural effusion Cardiomegaly Minimal mediastinal lymphadenopathy 2D echo 11/08/2024: 55-60%, RVSP> 60 mmHg, moderate to severe AR, bioprosthetic mitral valve, moderate concentric LVH, RV systolic function mildly reduced --Acute on chronic hypercapnic hypoxic respiratory failure At baseline 2-3 L oxygen at home. 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 Patient seen and examined at bedside. No acute distress, no gross events overnight She was resting comfortably laying on the bed. She was saturating 91% on 3 L nasal cannula Periodic cough with clear phlegm. Denies any hemoptysis Overall feels better compared to before. Fair appetite Constitutional: No acute distress, thin appearing HEENT: EOMI, PERRLA Respiratory system: Decreased air entry bilaterally, no wheeze, no rhonchi, positive crackles bilaterally more on the left lower side, improved from yesterday's CVS: S1-S2 positive, no murmurs or gallops Abdomen: Soft, nontender, nondistended, positive bowel sounds x4 Extremities: +2 pulses bilaterally radialis/ dorsalis pedis, no cyanosis, no edema Neuro: Awake alert oriented x3 Psych: Normal mood and affect G/U: No Jimenez Plan: In/out: -460, 1550 urine output , +173 mL since coming to the hospital Follow-up autoimmune Continue with nebulized bronchodilators while in the hospital Complete the course of antibiotics given the elevated procalcitonin Overall prognosis of the patient is guarded. Palliative met with patient 11/19/2024 with no decisions made on goals of care. Conversations to continue. I did personally also explained the patient the severe COPD that she has along with issues with the heart, escalating the care in the future if need be would cause more suffering than any benefit Patient understands and will think about it. Case was discussed with RN as well as primary team No further recommendation from pulmonary perspective, will sign off Please call directly with any questions Please note the above document was generated using voice recognition software. It may contain grammatical, syntax or spelling errors.Any formal questions or concerns about the content, text or information contained within the body of this dictation should be directly addressed to the provider for clarification. Subjective "I feel like I am back to my baseline." Patient is on her baseline 3 liters nasal cannula this am with SpO2 95%. Patient continuing with Lasix spot dosing and negative fluid balance this am. Autoimmune panel sent this am. Review of Systems 2 Review of Systems: All systems reviewed & are unremarkable except as noted in HPI & below Physical Exam 2 Physical Exam: VITALS: Reviewed. WEIGHT/BMI reviewed. GEN: Malnourished, cachectic, chronically ill woman lying in bed in no apparent distress. PSYCH: Good Judgment. AOx3. Normal memory, mood, and affect. HEENT -Head: NC/AT; -Eyes: PERRL, EOMI. No discharge or redn ess; -Ears: External ears are normal.. -Nose: Normal nares. -Mouth and throat: MMM. Normal gums, muc pawan, palate,. Good dentition. NECK: Supple, with no masses. CV: Irregular rate and rhythm. Systolic murmur 2/6 best heard at base. LUNGS: Crackles presented in bilateral lung orellana with diminished lung sounds on left. Chest rise symmetrical. Breathing nonlabored. ABD: Soft, NT/ND, NBS, no masses or organomegaly. : Deferred SKIN: Warm, well perfused. No skin rashes or abnormal lesions. MSK: No deformities, Normal gait. EXT: No clubbing, cyanosis, or edema. NEURO: Normal muscle strength and tone. No focal deficits. Results & Data Results & Data Vital Signs (Past 12 Hours) Vital Signs Temp Pulse Pulse Resp BP BP Pulse Ox 11/20/24 07:56 36.5 C 75 16 149/78 H 94 11/20/24 07:24 72 16 93 11/20/24 07:23 36.4 C L 75 17 121/63 94 O2 Del Method O2 Flow Rate 11/20/24 07:56 Nasal Cannula 3.5 11/20/24 07:24 Nasal Cannula 3.5 11/20/24 07:23 Nasal Cannula Laboratory Results 11/20/24 09:15 11/20/24 07:14 Abnormal Lab Results 11/19/24 11/19/24 11/20/24 06:33 16:33 07:14 WBC RBC Hgb Hct MCV MCH MCHC RDW Std Deviation RDW Coeff of Claudette Plt Count MPV Immature Gran % (Auto) Neut % (Auto) Lymph % (Auto) [place] % (Auto) Eos % (Auto) Baso % (Auto) Neut # (Auto) Lymph # (Auto) [place] # (Auto) Eos # (Auto) Baso # (Auto) Immature Gran # (Auto) Poikilocytosis Anisocytosis ESR Sodium 135 L Potassium 4.0 Chloride 94 L Carbon Dioxide 33 H Anion Gap 8 BUN 23 Creatinine 1.06 Est Cr Clr Drug Dosing 31.8 eGFR 59.03 BUN/Creatinine Ratio 21.7 H Glucose 86 Estimat Average Glucose Hemoglobin A1c Calcium 8.9 Magnesium 1.3 L 1.9 Total Bilirubin 1.1 H AST 17 ALT 12 Alkaline Phosphatase 136 H Total Creatine Kinase < 10 L C-Reactive Protein 7.92 H Total Protein 5.7 L Albumin 2.9 L Globulin 2.8 Albumin/Globulin Ratio 1.0 Urine Color [place] Urine Appearance Clear Urine pH 6.0 Ur Specific [place] 1.011 Urine Protein Negative Urine Glucose (UA) Negative Urine Ketones Negative Urine Blood 3+ H Urine Nitrite Negative Urine Bilirubin Negative Urine Urobilinogen Negative Ur Leukocyte Esterase Trace H Urine WBC (Auto) 0-5 Urine RBC (Auto) >20 H U Hyaline Cast (Auto) 0-2 U Epithel Cells (Auto) 0-2 Urine Bacteria (Auto) None Seen Urine Comment 11/20/24 09:15 WBC 15.30 H RBC 4.24 Hgb 10.6 L Hct 34.9 L MCV 82.3 MCH 25.0 MCHC 30.4 L RDW Std Deviation 68.7 H RDW Coeff of Claudette 24.6 H Plt Count 270 MPV 10.4 Immature Gran % (Auto) 1.8 Neut % (Auto) 86.9 Lymph % (Auto) 5.4 [place] % (Auto) 5.6 Eos % (Auto) 0.0 Baso % (Auto) 0.3 Neut # (Auto) 13.29 H Lymph # (Auto) 0.82 L [place] # (Auto) 0.86 H Eos # (Auto) 0.00 Baso # (Auto) 0.05 Immature Gran # (Auto) 0.28 H Poikilocytosis Present Anisocytosis Present ESR 38 H Sodium Potassium Chloride Carbon Dioxide Anion Gap BUN Creatinine Est Cr Clr Drug Dosing eGFR BUN/Creatinine Ratio Glucose Estimat Average Glucose 111 Hemoglobin A1c 5.5 Calcium Magnesium Total Bilirubin AST ALT Alkaline Phosphatase Total Creatine Kinase C-Reactive Protein Total Protein Albumin Globulin Albumin/Globulin Ratio Urine Color Urine Appearance Urine pH Ur Specific [place] Urine Protein Urine Glucose (UA) Urine Ketones Urine Blood Urine Nitrite Urine Bilirubin Urine Urobilinogen Ur Leukocyte Esterase Urine WBC (Auto) Urine RBC (Auto) U Hyaline Cast (Auto) U Epithel Cells (Auto) Urine Bacteria (Auto) Urine Comment Diagnostic Findings No recent imaging. PG Care Time/CCT Total # of Minutes Spent Total Time Spent with Patient: Total time spent is greater than 50% in coordination of care (as documented) at patient's floor/unit and/or counseling patient: Coding Level of Care Code 71351 SUB INP/OBS CARE 235MIN Diagnoses Pleural effusion J90 Cor pulmonale I27.81 Pulmonary edema J81.1 Centrilobular emphysema J43.2 Emphysema type: centrilobular Hypoxia R09.02 On home oxygen therapy Z99.81
--- NOTE | 2024-11-20 11:13 | XRay Report ---
XR chest 2V PA/lateral CLINICAL HISTORY: follow up COMPARISON STUDY: 11/19/2024 FINDINGS: Stable CABG. Stable cardiomegaly with mild pulmonary vascular congestion. Stable diffuse in terstitial pulmonary opacities. Stable small bilateral pleural effusions and associated lung base con solidation, left greater than right. No pneumothorax. IMPRESSION: Stable exam. ACT 112: Negative or not required by law. Electronically signed by: Reginaldo Copeland M.D. 11/20/2024 11:11 AM
--- NOTE | 2024-11-20 11:56 | Palliative Family Discussion ---
Date of Service November 20, 2024 Patient Directed Conference Time of Meetin:30 Participants: Machelle Escalera AGACNP Patient participation: no visitors present Patient Support System: n/a Other Healthcare Provider Participation: None Meeting Location: bedside Advanced Directive available: no If yes, descriptors: The patient's surrogate medical decision maker participated: no Legally authorized health care proxy: n/a Other surrogate: Patient currently exhibits decisional capacity based on the ability to convey understanding of personal PMHx, current medical condition, treatment options nor the risks / benefits/ potential outcomes of accepting/declining those options, and ability to make decisions based on such knowledge. Hospital does not have written documentation of patient wishes concerning her chosen proxy for medical decisions. Pt verbalized that she trusts her S.Reji Titus ([phone]) to serve as as primary proxy for medical decisions in the event she lacks decisional capacity. Pt DOES NOT require a proxy for medical decisions. A family meeting was held for JERARDO Ponce MIGUELABEL. This meeting was necessary for determining the appropriate course of treatment. Topics of Discussion Topics of Discussion: 1. pain management 2. goals of care 3. code status Other Content of Meetin. Opportunity given for participants to speak and ask questions. 2. Participants were assured of attention to patient comfort. 3. Reassurance provided. 4. Support was provided for informed, good-frank decisions. 5. Emotions expressed by family were acknowledged and addressed. 6. Follow-up Outpatient: TBD 7. Plan of Care: CONTINUE CURRENT LEVEL OF CARE/FULL CODE Met with pt at bedside as continuation of care from previous Palliative Care Practitioner Dr Perez. Discussed and reinforced previous conversations re: chronic illness, frequent admissions, deconditioning and how these play into her poor prognosis. Pt reports suffering with "constant pain" but asserts that it is currently well managed with PRN oxy as ordered. She shared feeling overwhelmed after lengthy GOC discussion yesterday. Questions encouraged and answered. Pt reports that she has been considering her prognosis and how best to spend what time she has. Discussed code status and helped Jerardo understand that CPR is only done after a person has and involves uncomfortable and invasive procedures that, if successful. have high risk of multiple complications including but not limited to rib fractures, pneumo/hemothorax, BRITTNEY, ventilator dependence, anoxic brain injury, and oil heaterman/permanent cognitive and functional deficits. CPR survival: Only about 10% of patients who have [id number] sudden cardiac arrest survive to hospital discharge, with many survivors having neurologic impairment. This rate is even lower among patients with serious coexisting conditions, ie chance of survival to hospital discharge for in-h ospital CPR in older people is low to moderate (15%) and decreases with age, comorbidities, performance status and frailty: for pts > 70 yo, more than half of the patients who initially survived resuscitation in the hospital before hospital discharge. The pooled survival to discharge after in-hospital CPR was 18% for patients between 70 and 79 years old, 15% for patients between 80 and 89 years old and 11% for patients of 90 years and older. (John TRACY, Avinash LJ, Hollie F, et al. Trends in short- and long-term survival among [id number] cardiac arrest patients alive at hospital arrival. Circulation 2014;130:1883- 1890. AND Sav C, Arturo T, Stacey R, et al. Performance of clinical risk scores to predict mortality and neurological outcome in cardiac arrest patients. Resuscitation 2019;136:21-29.) Pt did state that she has been on "the breathing tube" recently for "a few days and it was horrible". She stated she does not think that she would ever want mechanical ventilation again and does not think that resuscitation would afford her a life c/w her values/goals. Pt again shared feeling very overwhelmed. I encouraged questions and expression of feelings and asked how we can best help her. She responded "if I cannot help myself, I don't think anyone can help me". She shared that she would like to continue to consider the decisions before her for "just a couple days". I shared that Dr. Perez will visit with her again on Monday. PREVIOUS PALLIATIVE NOTES 11/19/24: Jerardo she more attuned to her issues than I anticipated: she told me she knew her heart and lung issues were things that will continue to worsen, and she will decline, but she was not quite at a place where she could tell me if she was turning that corner. We explored this further and talked about all the complications she has been experiencing - I told her that we are worried that these are signs that the illnesses and their complications are progressing along this continuum she referenced. I asked her if she'd ever reflected on what she does/does not want if things were worsening. She told me she has been thinking of this more but gets overwhelmed because she overthinks "all the possibilities." I shared with her I also felt this was overwhelming but that maybe if we broke things up into a few high level "what-if" scenarios for her to consider, then we can follow up on this in a few days for more discussion. I asked her to think about the what-ifs of (1) if the heart/lung issues acutely worsen/meds do not help improve significantly and/or what if the heart-lung issues cause other organ systems to fail thus leading to more decline. I also asked her what matters most and she said being with family/the boyfriend and her home. She was able to tell me she didn't want to on machines if her was nearing but she could not get to a no code decision either. Time Involved in Meeting: I spent 60 minutes overall addressing this case: 10 in medical data review/discussion with referring provider(s) and/or preparation for the visit 30 in direct interaction with the patient 30 Advance Care Planning/Goals of Care discussions as detailed above in note (must be >16min) 10 in subsequent review and synthesis of assessment and plan 10 in communicating with other providers regarding the patient's case: attending, BSRN
--- NOTE | 2024-11-21 07:50 | Hospitalist Progress Note ---
Date of Service November 21, 2024 Assessment & Plan (1) Failure to thrive in adult: (2) Acute CHF: (3) Chronic respiratory failure with hypoxia: (4) Pneumonia: (5) BRITTNEY (acute kidney injury): (6) Bone lesion: (7) Valvular heart disease: (8) Hypomagnesemia: (9) Paroxysmal atrial flutter: Plan 64yo F presented for FAILURE TO THRIVE after unwitnessed fall at home with several weeks of poor appetite, decreased oral intake and generalized weakness. PMHx significant for afib/flutter/PSVT (on Eliquis), bioprosthetic MVR, aortic valve REPAIR, Pulmonary HTN (RVSP >60mmHg), HFpEF, COPD with chronic respiratory failure (baseline 3L NC), TIA/CVA x 2, HTN, HLD, myoclonus, underweight, severe osteoporosis, depression/anxiety, chronic opioid use, GERD, hypothyroidism * On admission, concerns for volume overloaded with edema/rales/elevated BNP however appeared intravascularly depleted. Given albumin and LR on admission and home spironolactone/lisinopril placed on hold for BRITTNEY w/ Cr to 2.9 with baseline prior around ~1.4. Also with with left pleural effusion >R, joyce rning for HF vs infectious vs other and pulmonology consulted and underwent thoracentesis 11/13 for 1.4L and appears transudative, ?related to HF/renal dysfunction. Has been seen by nephrology, oncology, and pulmonology during inpatient stay, currently undergoing antibiotic treatment and diuretics to help with symptoms and palliative medicine consulted for goals discussion given lung/heart/kidney disease and repeat hospitalizations as was hospitalized 06/04-06/07, 08/17-08/24 indicating decline over past several months. Also concerns for possible underlying malignancy process w/ skeletal lesions and SPEP/UPEP sent, oncology follow up at [facility] planned and eventual rehab at [facility] #Failure to thrive in the adult - progressive decline with poor PO intake/progressive comorbidities. Tx CHF/respiratory failure as below Dieticians consult appreciated - diet liberalized, MVI added, continue protein supplements Palliative consulted - see note 11/20, will follow up later this week vs outpatient. Remains full code at this time but does understand progression of disease process/concerns possible underlying malignancy/etc PT/OT evals rec rehab --> [facility] when medically stable but attempting to get back to baseline O2 prior as outlined below, hopefully 11/22 #Acute on chronic HFpEF/Pleural effusions #Afib/flutter, hx PSVT 2D echo 11/08/2024: 55-60%, RVSP> 60 mmHg, moderate to severe AR, bioprosthetic mitral valve, moderate concentric LVH, RV systolic function mildly reduced BNP elevated on admission w/ effusion concerning for overload but as above noted to be intravascularly deplete and given albumin on admission w/ IVF CXR w/ large L effusion, increased O2 demands-->Pulm consulted s/p thoracentesis 11/04 as above, transudative. Path NEG for malignancy Eliquis resumed, cont'd metoprolol Lasix resumed 40mg 11/13, decreased to 20mg on 11/14 Spironolactone 25mg resumed 11/15 BNP checked and elevated to 2771 and additional 20mg IV lasix provided and repeated on 11/19 Increased spironolactone to 50mg daily for 11/20 and improvement in LE edema and placed lasix PO on hold, Cr stable 1.08 Did discuss possible concerns for amiodarone causing issues, does have long half life and currently rate/rhythm controlled and hx afib/flutter/PSVT and has been continued but could be considered to stop Mag replacement- LOW 1.3 prior, IV replacement ordered and remains stable 2.0 today Continue spironolactone 50mg daily LFT w/ ALP 142 Lasix resumption pending ongoing response to increased spironolactone but does appear weight stable 37.2kg (baseline CHF clinic note 80-83lb) and was up to 40kg prior and leg edema improved and on 3-3.5L NC close to baseline -- net negative 650cc on 11/20, currently net negative 100cc for today ?resume jardiance, but cautious to prevent worsened intravascular depletion Monitor volume status, I&Os, weights #Chronic respiratory failure, chronic O2 therapy #COPD, emphysema #Possible Atypical Pneumonia Concerns for increased opacities on CXR 11/17, procal added given increased leukocytosis and O2 requirement to 5-6L NC with baseline 3L Procal elevated to 0.96. CRP 9 Suspected increased O2 needs 2nd to HF/elevated RSVP, possible afib/flutter? On eliquis BID. Per pulm, on consult/following - continue abx to complete course, nebs w/ hypertonic saline/budesonide/formoterol - As above, possible worsening 2nd to Amiodarone? Consider holding/stopping -rheum labs/JAYESH/sjogrens/etc--> WILL NEED FOLLOW UP Continue pulmonary toilet, incentive spirometry Diuretics as outlined above Supplemental O2 to maintain sats, titrate as able #Hypomagnesemia- mag added to labs evening 11/19 given hx afib and prior lows and was low at 1.3 and IV replacement ordered and 2.0 on labs. Keep closer to 2 w/ hx afib/flutter #BRITTNEY- Resolved - Cr 2.92 on admit w/ baseline ~1.4 - Likely multifactorial, decreased PO intake/med effects/heart failure, also elevated keppra level to 97.5 Lisinopril held Diuretics resumed/adjusted per nephrology when Cr improved to 1.2 Keppra reduced (will need repeat keppra level outpatient) Cr continued improvement/stable since resumption of diuretics/adjustment as above Remains off lisinopril for now w/ increased spironolactone but if K sable on AM labs and stable BP can plan to resume and monitor renal function for any issues. Renal dose meds/avoid toxins BMP in AM #Elevated INR | Elevated LFTs| Thrombocytopenia | CAD | Hx TIA/CVA INR elevated on admission, suspected poor nutrition status and given Vitamin K 5mg x 1. EKG NSR. Hep panel negative. Liver US w/ slightly echogenic but nonspecific, no dilatation, is s/p mike. LFTs trending down w/ exception of ALP and suspect aspect of hepatic congestion. Vit D checked and wnl but upper normal 96.7 -Note pt is on Vit D supplementation at baseline, not continued currently while inpatient but do note level 109 in March and likely should not be continued given recent level quite acceptable Continues on metoprolol as above, eliquis/statin #Elevated Troponin-EKG with no acute ischemic changes, significant for a 1st degree block, rightward axis, possible left atrial enlargement. Troponin 167--> 214--> 220. Repeat echo w/o wma, no CP reported. Downgraded off telemetry #Hypothyroidism -TSH up 6.9 but w/ normal T4/T3- per supervising provider to continue current Synthroid but would rec follow up outpt to see about adjustment but could consider further adjustment given edema/CHF/afib/etc #Skeletal lesions - concerning for multiple myeloma vs. metabolic bone disease vs malignancy (interesting Ca levels are low) Periph smear w/ anemia likely 2nd to chronic disease vs MEDHAT s/p Venofer IV x 3 Vit D wnl Discussed w/ IR about poss bone marrow bx- images reviewed and does not look like multiple myeloma, reporting the lesions are very small and look like osteopenia with metabolic issues. Would recommend repeat CT in 6 months and only consider bx if labs concerning for multiple myeloma Oncology consulted, rec SPEP, 24hr UPEP, free light chain assay --> kappa light chains elevated but UPEP reports "Pattern consistent with mixed glomerular and tubular proteinuria" and per oncology "probably just bad osteoporosis" Recently started on abaloparatide for osteoporosis - rec continue at discharge Outpatient rec for PET for further eval to be entertained Palliative consult as above DVT Proph-Eliquis Disposition: continued inpatient stay, adjustment to diuretics and has been continued on increased spironolactone. plan to complete course abx, nebs, also possible resumption lisinopril in AM pending chemistries Palliative consult appreciated, to follow up in AM and arrange outpt follow up for ongoing discussion but remains full code at this time Outpt CHF/pulm/onc f/u Admission and Anticipated Discharge Date Admission Date: November 08, 2024 Supervising Physician Co-Signing Physician Notes The patient was not seen by me. The chart was reviewed. Case discussed with TERRA Duncan. Agree with assessment and plan Subjective Patient evaluated this morning, resting in bed. Reports improvement in appetite, has been taking the boost. Remains thin/frail, leg edema improving since spironolactone increase and will monitor off the lasix for now. Coughing some but no sputum production. Denies any fever/chills and feels breat olayinka at baseline. ISsues w/ O2 sat and up to 5L on exam but back to 3L, encouraged not to over correct. Making urine. No diarrhea reported on abx. Plan for apply for auth for Mr Muñoz, possible dc tomorrow. Also discussed amiodarone possibly contributing to pulm tox but with hx afib/PSVT and rates controlled and long half life cautious to discontinue this medication at this time. No palpitations reported. Questions/concerns addressed at this time. Physical Exam Physical Exam: General: 64yo frail, cachectic female laying in bed, NAD HEENT: head atraumatic, trachea midline, mm improved/stable Resp: diminished throughout, on 3-3.5L, conversational dyspnea at times improved, faint basilar crackles but no wheezing/rales, +cough CV: regular, +systolic murmur/diastolic murmur, bilateral LE edema IMPROVED, trace- 1+, pulses present GI: +BS, soft/scaphoid/nontender no engel, voided in bedside commode, yellow/slightly concentrated urine MSK/Neuro: generalized weakness but nonfocal, not confused Psych: AOx3, cooperative with exam Results & Data Results & Data Vital Signs (Past 12 Hours) Vital Signs Pulse Pulse Resp Pulse Ox O2 Del Method O2 Flow Rate 11/21/24 07:18 84 16 92 Nasal Cannula 3 11/20/24 22:06 Nasal Cannula 3 11/20/24 20:23 89 18 90 Nasal Cannula 3 Laboratory Results 11/21/24 11/21/24 Range/Units 10:27 07:11 WBC 15.46 H (4.8-10.8) K/ul RBC 4.04 L (4.20-5.40) M/uL Hgb 10.0 L (12.0-16.0) g/dl Hct 33.7 L (37.0-47.0) % MCV 83.4 (80.0-100.0) fL MCH 24.8 L (25.0-34.0) pg MCHC 29.7 L (32.0-36.0) g/dL RDW Std Deviation 74.0 H (36.4-46.3) fL RDW Coeff of Claudette 25.3 H (11.5-14.5) % Plt Count 305 (130-400) K/uL MPV 10.9 (9.4-12.4) fL Immature Gran % (Auto) 1.6 % Neut % (Auto) 85.9 % Lymph % (Auto) 5.6 % [place] % (Auto) 6.4 % Eos % (Auto) 0.0 % Baso % (Auto) 0.5 % Neut # (Auto) 13.28 H (1.40-6.50) K/uL Lymph # (Auto) 0.87 L (1.20-3.40) K/uL [place] # (Auto) 0.99 H (0.11-0.59) K/uL Eos # (Auto) 0.00 (0.00-0.50) K/uL Baso # (Auto) 0.07 (0.00-0.20) K/uL Immature Gran # (Auto) 0.25 H (0.01-0.20) K/uL Absolute Nucleated RBC 0.02 (0.00-0.12) K/uL Nucleated RBC % (auto) 0.1 % Polychromasia 2+ Hypochromasia Present Anisocytosis Present Ovalocytes 1+ VBG pH 7.46 H (7.36-7.41) VBG pCO2 45 (38-50) mmHg VBG pO2 52 mmHg VBG HCO3 32 mmol/L VBG O2 Saturation 82.9 % VBG Base Excess 7.1 mEq/L Sodium 133 L (136-145) mmol/L Potassium 3.9 (3.5-5.1) mmol/L Chloride 93 L (98-107) mmol/L Carbon Dioxide 33 H (21-32) mmol/L Anion Gap 7 (3-11) BUN 27 H (6-23) mg/dl Creatinine 1.08 (0.6-1.2) mg/dl Est Cr Clr Drug Dosing 31.3 ml/min eGFR 57.72 BUN/Creatinine Ratio 25.0 H (10-20) Glucose 79 (70-99(Fasting)) mg/dl Calcium 8.8 (8.6-10.3) mg/dl Magnesium 2.0 (1.7-2.4) mg/dl Total Bilirubin 1.0 (0.2-1.0) mg/dl AST 17 (13-39) U/L ALT 13 (7-52) U/L Alkaline Phosphatase 142 H (34-104) U/L Total Protein 5.7 L (6.0-8.3) gm/dl Albumin 2.9 L (3.4-5.0) gm/dl Globulin 2.8 (2.5-4.0) gm/dl Albumin/Globulin Ratio 1.0 (0.9-2) Cortisol AM Sample 20.22 (6.2-22.6) mcg/dl PG Care Time/CCT Total # of Minutes Spent Total Time Spent with Patient: Total time spent is greater than 50% in coordination of care (as documented) at patient's floor/unit and/or counseling patient: Coding Level of Care Code 40322 SUB INP/OBS CARE 3/50MIN Diagnoses Failure to thrive in adult R62.7 Acute CHF I50.9 Chronic respiratory failure with hypoxia J96.11 Pneumonia J18.9 Laterality: left Lung location: lower lobe of lung Pneumonia type: due to unspecified organism BRITTNEY (acute kidney injury) N17.9 Bone lesion M89.9 Valvular heart disease I38 Hypomagnesemia E83.42 Paroxysmal atrial flutter I48.92 (4) Pneumonia Laterality: left Lung location: lower lobe of lung Pneumonia type: due to unspecified organism Qualified Code(s): J18.9 - Pneumonia, unspecified organism
[2024-11-21 07:51] LABS: Hematocrit (blood only) 33.7 % (37.0-47.0); Hemoglobin 10.0 g/dl (12.0-16.0); Immature Granulocytes # (auto) 0.25 K/uL (0.01-0.20); Immature Granulocytes % (auto) 1.6 %; Mean Corpuscular Hemoglobin 24.8 pg (25.0-34.0); Mean Corpuscular Volume 83.4 fL (80.0-100.0); Platelet Count 305 K/uL (130-400); RDW Standard Deviation 74.0 fL (36.4-46.3); Red Blood Count 4.04 M/uL (4.20-5.40); White Blood Count 15.46 K/ul (4.8-10.8)
[2024-11-21 08:07] LABS: Alanine Aminotransferase 13.0 U/L (7-52); Albumin Globulin Ratio 1.0 (0.9-2); Alkaline Phosphatase 142.0 U/L (34-104); Anion Gap 7.0 (3-11); Bilirubin,Total 1.0 mg/dl (0.2-1.0); Blood Urea Nitrogen 27.0 mg/dl (6-23); Calcium 8.8 mg/dl (8.6-10.3); Carbon Dioxide 33.0 mmol/L (21-32); Chloride 93.0 mmol/L (98-107); Creatinine Clr Calc Pharmacy 31.3 ml/min; Globulin 2.8 gm/dl (2.5-4.0); Glucose 79.0 mg/dl (70-99(Fasting)); Magnesium 2.0 mg/dl (1.7-2.4); Potassium 3.9 mmol/L (3.5-5.1); Sodium 133.0 mmol/L (136-145); Total Protein 5.7 gm/dl (6.0-8.3)
[2024-11-21 08:21] LABS: Anisocytosis Present; Hypochromasia Present; Ovalocytes 1+; Polychromasia 2+
--- NOTE | 2024-11-21 08:43 | Pulmonology Progress Note ---
Date of Service November 21, 2024 Assessment & Plan (1) Pleural effusion: (2) Cor pulmonale: (3) Pulmonary edema: (4) Emphysema/COPD: Emphysema type: centrilobular Qualified Code(s): J43.2 - Centrilobular emphysema (5) Hypoxia: (6) On home oxygen therapy: Plan 64-year-old female with past medical history of atrial fibrillation on Eliquis, CAD on plavix, bioprosthetic AVR, porcine MVR, paroxysmal supraventricular tachycardia, pulmonary hypertension, COPD, chronic hypoxic respiratory failure who wears 3 liters nasal cannula at baseline, TIA/CVA, HTN, HLD, depression, anxiety, GERD, hypothyroidism, and failure to thrive; who presented [facility] ED on 11/08/2024 with generalized weakness and unfortunately suffered an unwitnessed fall at home with a 2.5 hr downtime with worsening hypoxia and left pleural effusion in setting of likely heart failure exacerbation with possible undiagnosed malignancy. CT chest 11/07/2024 personally reviewed: Severe centrilobular and paraseptal emphysema appreciated bilaterally Minimal bilateral apical pleural scarring Small to moderate left-sided pleural effusion atelectasis of the left lower lobe, small left-sided pleural effusion Cardiomegaly Minimal mediastinal lymphadenopathy 2D echo 11/08/2024: 55-60%, RVSP> 60 mmHg, moderate to severe AR, bioprosthetic mitral valve, moderate concentric LVH, RV systolic function mildly reduced --Acute on chronic hypercapnic hypoxic respiratory failure At baseline 2-3 L oxygen at home. Multifactorial Pleural effusion Cannot rule out pneumonia especially with elevated procalcitonin S/p left-sided thoracentesis 11/13/2024: 1400 mL serosanguineous fluid removed, cytology negative, exudative per lights criteria looking at LDH Pleural culture negative to date Respiratory bio fire negative for everything on 11/18/2024 Procalcitonin 0.96 BNP 2771 ESR 38, CRP 7.92 --COPD with emphysema It seems patient also has CPFE like component On Trelegy 200 at home No personal or family history of any autoimmune disease like lupus, sarcoid, Sjogren's, rheumatoid Denies any Raynaud's --Pulmonary hypertension 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 Continue with palliative care discussions Case was discussed with RN as well as primary team No further recommendation from pulmonary perspective, will sign off Please call directly with any questions Please note the above document was generated using voice recognition software. It may contain grammatical, syntax or spelling errors.Any formal questions or concerns about the content, text or information contained within the body of this dictation should be directly addressed to the provider for clarification. Admission and Anticipated Discharge Date Admission Date: November 08, 2024 Subjective Patient seen and examined at bedside. No acute distress, no adverse events overnight She was saturating 88-89% on 3 and half liters oxygen Overall she stated she is feeling the same Denies any significant shortness of breath Has been using incentive spirometry as well as flutter valve Appetite is fair No nausea or vomiting Review of Systems 2 Review of Systems: All systems reviewed & are unremarkable except as noted in Subjective Physical Exam 2 Physical Exam: Constitutional: No acute distress, thin appearing HEENT: EOMI, PERRLA Respiratory system: Decreased air entry bilaterally, no wheeze, no rhonchi, positive crackles bilaterally more on the left lower side CVS: S1-S2 positive, no murmurs or gallops Abdomen: Soft, nontender, nondistended, positive bowel sounds x4 Extremities: +2 pulses bilaterally radialis/ dorsalis pedis, no cyanosis, no edema Neuro: Awake alert oriented x3 Psych: Normal mood and affect G/U: No Jimenez Skin: no rashes, warm and dry Lymphatic: no cervical or axillary lymphadenopathy Results & Data Results & Data Vital Signs (Past 12 Hours) Vital Signs Temp Pulse Resp BP Pulse Ox O2 Del Method O2 Flow Rate 11/21/24 08:01 36.8 C 88 18 131/47 L 90 Nasal Cannula 5 11/21/24 07:18 84 16 92 Nasal Cannula 3 11/20/24 22:06 Nasal Cannula 3 Laboratory Results 11/21/24 07:11 11/21/24 07:11 PG Care Time/CCT Total # of Minutes Spent Total Time Spent with Patient: Total time spent is greater than 50% in coordination of care (as documented) at patient's floor/unit and/or counseling patient: Coding Level of Care Code 04594 SUB INP/OBS CARE 235MIN Diagnoses Pleural effusion J90 Cor pulmonale I27.81 Pulmonary edema J81.1 Centrilobular emphysema J43.2 Emphysema type: centrilobular Hypoxia R09.02 On home oxygen therapy Z99.81
[2024-11-21 10:54] LABS: Base Excess VBG 7.1 mEq/L; HCO3 VBG 32 mmol/L; Oxygen Saturation VBG 82.9 %; PCO2 VBG 45 mmHg (38-50); PO2 VBG 52 mmHg; pH VBG 7.46 (7.36-7.41)
[2024-11-22 06:59] VITALS: BP 148/69; TEMP 98.1
[2024-11-22 07:39] LABS: Hematocrit (blood only) 37.1 % (37.0-47.0); Hemoglobin 10.9 g/dl (12.0-16.0); Immature Granulocytes # (auto) 0.16 K/uL (0.01-0.20); Immature Granulocytes % (auto) 1.4 %; Mean Corpuscular Hemoglobin 24.6 pg (25.0-34.0); Mean Corpuscular Volume 83.7 fL (80.0-100.0); Platelet Count 333 K/uL (130-400); RDW Standard Deviation 76.4 fL (36.4-46.3); Red Blood Count 4.43 M/uL (4.20-5.40); White Blood Count 11.76 K/ul (4.8-10.8)
[2024-11-22 07:41] VITALS: PULSE 74; RESP 16; O2SAT 98
[2024-11-22 08:01] LABS: Anion Gap 8.0 (3-11); Bilirubin,Total 1.0 mg/dl (0.2-1.0); Calcium 9.0 mg/dl (8.6-10.3); Carbon Dioxide 30.0 mmol/L (21-32); Chloride 95.0 mmol/L (98-107); Magnesium 1.9 mg/dl (1.7-2.4); Potassium 4.2 mmol/L (3.5-5.1); Sodium 133.0 mmol/L (136-145)
--- NOTE | 2024-11-22 08:06 | Hospitalist Progress Note ---
Date of Service November 22, 2024 Assessment & Plan (1) Failure to thrive in adult: (2) Acute CHF: (3) Chronic respiratory failure with hypoxia: (4) Pneumonia: (5) BRITTNEY (acute kidney injury): (6) Bone lesion: (7) Valvular heart disease: (8) Hypomagnesemia: (9) Paroxysmal atrial flutter: Plan 64yo F presented for FAILURE TO THRIVE after unwitnessed fall at home with several weeks of poor appetite, decreased oral intake and generalized weakness. PMHx significant for afib/flutter/PSVT (on Eliquis), bioprosthetic MVR, aortic valve REPAIR, Pulmonary HTN (RVSP >60mmHg), HFpEF, COPD with chronic respiratory failure (baseline 3L NC), TIA/CVA x 2, HTN, HLD, myoclonus, underweight, severe osteoporosis, depression/anxiety, chronic opioid use, GERD, hypothyroidism * On admission, concerns for volume overloaded with edema/rales/elevated BNP however appeared intravascularly depleted. Given albumin and LR on admission and home spironolactone/lisinopril placed on hold for BRITTNEY w/ Cr to 2.9 with baseline prior around ~1.4. Also with with left pleural effusion >R, joyce rning for HF vs infectious vs other and pulmonology consulted and underwent thoracentesis 11/13 for 1.4L and appears transudative, ?related to HF/renal dysfunction. Has been seen by nephrology, oncology, and pulmonology during inpatient stay, currently undergoing antibiotic treatment and diuretics to help with symptoms and palliative medicine consulted for goals discussion given lung/heart/kidney disease and repeat hospitalizations as was hospitalized 06/04-06/07, 08/17-08/24 indicating decline over past several months. Also concerns for possible underlying malignancy process w/ skeletal lesions and SPEP/UPEP sent, oncology follow up [place] planned and eventual rehab at [facility] #Failure to thrive in the adult - progressive decline with poor PO intake/progressive comorbidities. Tx CHF/respiratory failure as below Dieticians consult appreciated - diet liberalized, MVI added, continue protein supplements Palliative consulted - see note 11/20, will follow up later this week vs outpatient. Remains full code at this time but does understand progression of disease process/concerns possible underlying malignancy/etc PT/OT evals rec rehab --> [facility] when medically stable but attempting to get back to baseline O2 prior as outlined below, hopefully 11/22 #Acute on chronic HFpEF/Pleural effusions #Afib/flutter, hx PSVT 2D echo 11/08/2024: 55-60%, RVSP> 60 mmHg, moderate to severe AR, bioprosthetic mitral valve, moderate concentric LVH, RV systolic function mildly reduced BNP elevated on admission w/ effusion concerning for overload but as above noted to be intravascularly deplete and given albumin on admission w/ IVF CXR w/ large L effusion, increased O2 demands-->Pulm consulted s/p thoracentesis 11/04 as above, transudative. Path NEG for malignancy Eliquis resumed, cont'd metoprolol Lasix resumed 40mg 11/13, decreased to 20mg on 11/14 Spironolactone 25mg resumed 11/15 BNP checked and elevated to 2771 and additional 20mg IV lasix provided and repeated on 11/19 Increased spironolactone to 50mg daily for 11/20 and improvement in LE edema and placed lasix PO on hold, Cr stable 1.08 Did discuss possible concerns for amiodarone causing issues, does have long half life and currently rate/rhythm controlled and hx afib/flutter/PSVT and has been continued but could be considered to stop Mag replacement- LOW 1.3 prior, IV replacement ordered and remains stable 2.0 today Continue spironolactone 50mg daily LFT w/ ALP 142 Lasix resumption pending ongoing response to increased spironolactone but does appear weight stable 37.2kg (baseline CHF clinic note 80-83lb) and was up to 40kg prior and leg edema improved and on 3-3.5L NC close to baseline -- net negative 650cc on 11/20, currently net negative 100cc for today ?resume jardiance, but cautious to prevent worsened intravascular depletion Monitor volume status, I&Os, weights 11/22- chemistries pending but WBC improving, 98%on 4L and asking nursing to keep 88-90% but prevent over oxygenation #Chronic respiratory failure, chronic O2 therapy #COPD, emphysema #Possible Atypical Pneumonia Concerns for increased opacities on CXR 11/17, procal added given increased leukocytosis and O2 requirement to 5-6L NC with baseline 3L Procal elevated to 0.96. CRP 9 Suspected increased O2 needs 2nd to HF/elevated RSVP, possible afib/flutter? On eliquis BID. Per pulm, on consult/following - continue abx to complete course, nebs w/ hypertonic saline/budesonide/formoterol - As above, possible worsening 2nd to Amiodarone? Consider holding/stopping -rheum labs/JAYESH/sjogrens/etc--> WILL NEED FOLLOW UP Continue pulmonary toilet, incentive spirometry Diuretics as outlined above Supplemental O2 to maintain sats, titrate as able #Hypomagnesemia- mag added to labs evening 11/19 given hx afib and prior lows and was low at 1.3 and IV replacement ordered and 2.0 on labs. Keep closer to 2 w/ hx afib/flutter #BRITTNEY- Resolved - Cr 2.92 on admit w/ baseline ~1.4 - Likely multifactorial, decreased PO intake/med effects/heart failure, also elevated keppra level to 97.5 Lisinopril held Diuretics resumed/adjusted per nephrology when Cr improved to 1.2 Keppra reduced (will need repeat keppra level outpatient) Cr continued improvement/stable since resumption of diuretics/adjustment as above Remains off lisinopril for now w/ increased spironolactone but if K sable on AM labs and stable BP can plan to resume and monitor renal function for any issues. Renal dose meds/avoid toxins BMP in AM #Elevated INR | Elevated LFTs| Thrombocytopenia | CAD | Hx TIA/CVA INR elevated on admission, suspected poor nutrition status and given Vitamin K 5mg x 1. EKG NSR. Hep panel negative. Liver US w/ slightly echogenic but nonspecific, no dilatation, is s/p mike. LFTs trending down w/ exception of ALP and suspect aspect of hepatic congestion. Vit D checked and wnl but upper normal 96.7 -Note pt is on Vit D supplementation at baseline, not continued currently while inpatient but do note level 109 in March and likely should not be continued given recent level quite acceptable Continues on metoprolol as above, eliquis/statin #Elevated Troponin-EKG with no acute ischemic changes, significant for a 1st degree block, rightward axis, possible left atrial enlargement. Troponin 167--> 214--> 220. Repeat echo w/o wma, no CP reported. Downgraded off telemetry #Hypothyroidism -TSH up 6.9 but w/ normal T4/T3- per supervising provider to continue current Synthroid but would rec follow up outpt to see about adjustment but could consider further adjustment given edema/CHF/afib/etc #Skeletal lesions - concerning for multiple myeloma vs. metabolic bone disease vs malignancy (interesting Ca levels are low) Periph smear w/ anemia likely 2nd to chronic disease vs MEDHAT s/p Venofer IV x 3 Vit D wnl Discussed w/ IR about poss bone marrow bx- images reviewed and does not look like multiple myeloma, reporting the lesions are very small and look like osteopenia with metabolic issues. Would recommend repeat CT in 6 months and only consider bx if labs concerning for multiple myeloma Oncology consulted, rec SPEP, 24hr UPEP, free light chain assay --> kappa light chains elevated but UPEP reports "Pattern consistent with mixed glomerular and tubular proteinuria" and per oncology "probably just bad osteoporosis" Recently started on abaloparatide for osteoporosis - rec continue at discharge Outpatient rec for PET for further eval to be entertained Palliative consult as above DVT Proph-Eliquis Disposition: continued inpatient stay, adjustment to diuretics and has been continued on increased spironolactone. plan to complete course abx, nebs, also possible resumption lisinopril in AM pending chemistries Palliative consult appreciated, to follow up in AM and arrange outpt follow up for ongoing discussion but remains full code at this time Outpt CHF/pulm/onc f/u Admission and Anticipated Discharge Date Admission Date: November 08, 2024 Results & Data Results & Data Vital Signs (Past 12 Hours) Vital Signs Temp Pulse Pulse Resp BP Pulse Ox O2 Del Method 11/22/24 07:40 74 16 98 Nasal Cannula 11/22/24 06:59 36.7 C 78 18 148/69 H 94 Nasal Cannula 11/21/24 20:46 Nasal Cannula O2 Flow Rate 11/22/24 07:40 4 11/22/24 06:59 4.0 11/21/24 20:46 3.5 PG Care Time/CCT Total # of Minutes Spent Total Time Spent with Patient: Total time spent is greater than 50% in coordination of care (as documented) at patient's floor/unit and/or counseling patient: Coding Diagnoses Failure to thrive in adult R62.7 Acute CHF I50.9 Chronic respiratory failure with hypoxia J96.11 Pneumonia J18.9 Laterality: left Lung location: lower lobe of lung Pneumonia type: due to unspecified organism BRITTNEY (acute kidney injury) N17.9 Bone lesion M89.9 Valvular heart disease I38 Hypomagnesemia E83.42 Paroxysmal atrial flutter I48.92 (4) Pneumonia Laterality: left Lung location: lower lobe of lung Pneumonia type: due to unspecified organism Qualified Code(s): J18.9 - Pneumonia, unspecified organism
[2024-11-22 08:07] LABS: Alanine Aminotransferase 11.0 U/L (7-52); Albumin Globulin Ratio 1.0 (0.9-2); Alkaline Phosphatase 157.0 U/L (34-104); Anisocytosis Present; Blood Urea Nitrogen 27.0 mg/dl (6-23); Creatinine Clr Calc Pharmacy 32.7 ml/min; Globulin 3.0 gm/dl (2.5-4.0); Glucose 68.0 mg/dl (70-99(Fasting)); Polychromasia 1+; Total Protein 6.1 gm/dl (6.0-8.3)
--- NOTE | 2024-11-22 11:20 | Discharge Summary ---
Discharge Summary Date of Service November 22, 2024 Principal Dx & Hospital Course #1 = Principal Diagnosis (1) Failure to thrive in adult: (2) Acute CHF: (3) Chronic respiratory failure with hypoxia: (4) Pneumonia: (5) BRITTNEY (acute kidney injury): (6) Bone lesion: (7) Valvular heart disease: (8) Hypomagnesemia: (9) Paroxysmal atrial flutter: Plan 64yo F presented after unwitnessed fall at home 11/08 when she reports she lost her balance getting to bathroom around 19:00 and fell onto ceramic tile floor. No head trauma or LOC or acute injuries identified but was unable to get up from the floor for ~2.5hours until boyfriend got home and able to help her up. Presented with several weeks of poor appetite, decreased oral intake and generalized weakness and found to have increased shortness of breath, leg edema/cough concerning for overload w/ CHF history but appeared intravascularly depleted (noting on Jardiance for HF history) and was provided IVF given acute kidney injury/BRITTNEY with Cr up to 2.9 with baseline ~1.4 prior despite elevated BNP along with albumin. Concerns for progressive FAILURE TO THRIVE with repeat hospitalizations 06/04-06/07, 08/17-08/24 with weight loss, along with reported skeletal lesions on initial radiology read but felt not so on repeat discussion w/ neurology however did have Oncology consult while inpatient/outpatient labs w/ SPEP/EPEP/etc sent. Peripheral smear not impressive. Onc felt kappa chain elevation 2nd to severe osteopenia. PMHx significant for afib/flutter/PSVT (on Eliquis), bioprosthetic MVR, aortic valve REPAIR, Pulmonary HTN (RVSP >60mmHg), HFpEF, COPD with chronic respi ratory failure (baseline 3L NC), TIA/CVA x 2, HTN, HLD, myoclonus, underweight, severe osteoporosis, depression/anxiety, chronic opioid use, GERD, hypothyroidism. Pulmonology and nephrology consulted for acute on chronic respiratory failure/increased oxygen demands/pleural effusion and BRITTNEY on admission with Cr 2.9 Jennifer underwent thoracentesis on 11/04 for 1400ml serosanguineous fluid, anaylsis c/w transudative effusion, suspected 2nd to underlying heart failure/CHF (however did send for rheum labs/sent out and pending at discharge) Was provided IVF until renal function recovery and then resumed lasix 40mg daily on 11/13 but decreased to 20mg daily 11/14 by nephrology and her spironolactone resumed on 11/15 for ongoing diuresis. Home Jardiance on hold on admission and suspect given PO intake likely making intravascular depletion worse ECHO obtained and noted EF 55-60%, RVSP >60mmHg, mod-severe AR, mod-severe TR, bioprosthetic mitral valve/mild mitral stenosis, moderate concentric LVH, RV systolic function mildly reduced Increased oxygen needs/concerns for possible worsening infection despite initial antibiotic therapy and procal obtained which was slightly elevated 0.98 and blood cultures obtained/abx escalated to Zosyn/Doxy and completed 5 days of such w/ eventual improvement in WBC and blood cultures remained negative however do suspect potentially 2nd to volume overload as improved with additional lasix 20mg IV in addition to usual 20mg PO on 11/19 and scheduled 20mg IV for 11/20 with good improvement however with underlying afib/R sided heart failure and issues w/ hypokalemia/hypomagnesemia, decision to hold further lasix and increase spironolactone from 25mg to 50mg daily with good results and was net negative with improvement in leg edema and titrated back to baseline 3L (3.5L at times but was 98% and need to prevent over-oxygenation). Biofire was checked and negative. On evaluation 11/22 feeling better, BUN/Cr stable 27/1.03 with increased spironolactone and weights appear at baseline. Discussed K4.2 and holding off resuming lisinopril at discharge for now to prevent hyperkalemia however can be entertained to resume for additional BP c ontrol as well as HF but defer to CHF follow up and would rec having close monitoring of electrolytes. Decision to extend Augmentin x 2 more days at ri for 7 day course. Again, completed the 5 days Doxy for atypical. No sputum production but was continued on nebs added by Pulm w/ budesonide/formoterol nebs and hypertonic saline. Feels breathing back to baseline, no increased SOB and wanting to get to rehab at [facility] and significant other to transport. Of note, did discuss code status and patient aware of progressive decline however remains full code at this time and will have palliative outpatient follow up 12/26 for ongoing discussions. #Acute on chronic HFmrEF, pleural effusion, CAD, Afib/flutter, hx PSVT - rates controlled, remained on metoprolol. eliquis held initially for thoracentesis but resumed. Jardiance as above likely worsening intravascular status as concerned by CHF clinic provider in the past prior to starting and has been discontinued. TSH slight elevation but remained on current Synthroid given normal T4/T3 but can entertain increase outpatient with PCP ECHO as noted above, EF 50-55% but w/ valvular disease noted/hx mitral valve replacement and repair aortic valve. Pulm consulted, s/p thoracentesis as discussed. Cx negative to date, analysis w/ transudative but ?serositis vs other rheum -- send out labs need follow up w/ pulm Lasix/spironolactone resumed following renal recovery per nephrology but suspected given issues in past and electrolyte issues have increased spironolactone to 50mg daily for hormonal benefit as well and holding off lasix for now given improvement in edema/weight gain off such but can follow up with CHF clinic at discharge for ongoing instruction but will plan to hold lisinopril for now to prevent hyperkalemia Note mag replacement prior, stable on repeat testing Please note that after discharge, patient cristina NOT on medication list (did receive 5mg this morning 11/22) and was added/case checker notified to send updated med list to [facility] #Chronic respiratory failure on Oxygen therapy, COPD/emphysema, possible atypical pneumonia See above, stable but worsened with holding diuretics but w/ procal was covered with antibiotics and escalated w/ ongoing leukocytosis which has improved along with CRP and completing course abx as outlined Pulm consulted, s/p Thoracentesis as above, IV mag replacement and tx of CHF as above Send out labs for JAYESH/sjogrens/etc --> WILL NEED FOLLOW UP Sent on continued nebulizers per discussion w/ provider given frailty to ensure getting medication. Titrated back from 6L --> 3-3.5L and titrate as able to prevent over correction Will need pulm follow up at discharge Also did mention to consider possible AMIODARONE contributing but given hx afib/flutter and NSR on telemetry deferred stopping at this time given half life but could be entertained in follow up. ?relation to TSH elevation #Failure to thrive in the adult - progressive decline with poor PO intake/progressive comorbidities. Tx CHF/respiratory failure as outlined Dieticians consult appreciated - diet liberalized, MVI added, continue protein supplements Palliative consulted - see note 11/20, will follow up later this week vs outpatient. Remains full code at this time but does understand progression of disease process/concerns possible underlying malignancy/etc PT/OT evals rec rehab --> [facility] #Hypomagnesemia- replaced/resolved and stayed stable. lasix held at dc given prior severe hypomag as well #BRITTNEY- Resolved - Cr 2.92 on admit w/ baseline ~1.4 - Likely multifactorial, decreased PO intake/med effects/heart failure, also elevated keppra level to 97.5 Lisinopril held Diuretics resumed/adjusted per nephrology when Cr improved to 1.2 Keppra reduced (will need repeat keppra level outpatient) Cr continued improvement/stable since resumption of diuretics/adjustment as above CR stable 1.03 and rec continued monitoring WILL NEED REPEAT KEPPRA LEVEL --> sent on 250mg BID from prior 500mg BID Remains off lisinopril for now w/ increased spironolactone and holding at dc along with lasix and Jardiance stopped for now #Elevated INR | Elevated LFTs| Thrombocytopenia | CAD | Hx TIA/CVA INR elevated on admission, suspected poor nutrition status and given Vitamin K 5mg x 1. EKG NSR. Hep panel negative. Liver US w/ slightly echogenic but nonspecific, no dilatation, is s/p mike. LFTs trending down w/ exception of ALP and suspect aspect of hepatic congestion. Vit D checked and wnl but upper normal 96.7 Note pt is on Vit D supplementation at baseline, not continued currently while inpatient but do note level 109 in March and likely should not be continued given recent level quite acceptable- dc'd at discharge Continues on metoprolol as above, eliquis/statin #Elevated Troponin-EKG with no acute ischemic changes, significant for a 1st degree block, rightward axis, possible left atrial enlargement. Troponin 167--> 214--> 220. Repeat echo w/o wma, no CP reported. Downgraded off telemetry #Hypothyroidism -TSH up 6.9 but w/ normal T4/T3- per supervising provider to continue current Synthroid but would rec follow up outpt to see about adjustment but could consider further adjustment given edema/CHF/afib/etc #Skeletal lesions - concerning for multiple myeloma vs. metabolic bone disease vs malignancy (interesting Ca levels are low) Periph smear w/ anemia likely 2nd to chronic disease vs MEDHAT s/p Venofer IV x 3 Vit D wnl Discussed w/ IR about poss bone marrow bx- images reviewed and does not look like multiple myeloma, reporting the lesions are very small and look like osteopenia with metabolic issues. Would recommend repeat CT in 6 months and only consider bx if labs concerning for multiple myeloma Oncology consulted, rec SPEP, 24hr UPEP, free light chain assay --> kappa light chains elevated but UPEP reports "Pattern consistent with mixed glomerular and tubular proteinuria" and per oncology "probably just bad osteoporosis" Recently started on abaloparatide for osteoporosis - rec continue at discharge Outpatient rec for PET for further eval Palliative consult as above *Note review prior notes w/ resumption eliquis 2.5mg BID on 11/10 not ordered on admission (reduced for renal function) but was increased to 5mg BID w/ improvement back to baseline HOWEVER I do see was placed on eliquis in July during admission for stroke prevention in addition to her plavix for stroke prevention however do NOT see any refills filled in between that time. Did not report overt pleuritic pain but ?if sx related to potential underlying PE. Last CTA chest in June noted enlarged pulmonary artery/pulm HTN but no recent CTA. If any ongoing issues/pleuritic pain reported should obtain CTA/consider coumadin given valvular replacement/repair (noting patient previously declined use with coumadin) and did improve back to baseline O2 w/ diuretics/antibiotics and no hypotension/pleurtic pain reported but could be entertained if any ongoing issuess. Dispo: discharged with family to [facility], outpatient follow up CHF clinic, pulm, oncology. Highly encouraged continued follow up with palliative as seen inpatient/arranged for ongoing discussion given progressive disease/decline but remaining full code at this time. Support provided/remained on oxycodone for baseline chronic pain control as taking at home. +BM prior to dc and no diarrhea reported Notes For Next Care Provider Please ensure follow up send out rheum labs Should have follow up CHF clinic, possible resumption of lasix pending eval/weights but responding nicely to increased spironolactone 50mg daily Improvement in PO intake w/ diuretics . Jardiance continued on hold for risk intravascular depletion given status/BRITTNEY on admission and renal function stable w/ diuretics Keppra level will need repeated outpatient Vit D stopped due to level ~97 and prior highs Oncology felt kappa chain elevation 2nd to severe osteopenia but rec consideration follow up and PET scan to be sure. Palliative follow up for ongoing goals of care in 4 wks, discussed w/ patient a nd Dr Perez - patient was not able to make DNR at this time but does understand progressive nature and may change in upcoming appt pending rehab/etc Medication Changes From Visit Augmentin PO BID x 2 more days Budesonide/formoterol nebs BID Spironolactone increased to 50mg daily Lasix on HOLD for now Lisinopril on HOLD for now Jardiance on HOLD for now Keppra reduced to 250mg BID - will need repeat level Stop Vitamin D Admission HPI Per Admitting Provider Jennifer Morrison is a 64yo female with history of HLP, COPD, GERD, Depression/Anxiety presenting from home after an unwitnessed fall. Patient reports last evening she was getting out of bed to used the bathroom around 19:00. She lost her balance and fell to the ceramic tile floor. No head trauma or LOC. No acute injuries identified. Patient was unable to get up from the floor and she laid there for about 2.5 hours until her boyfriend got home and helped her up. Patient with generalized weakness, difficulty getting up even with assistance. Overall patient reports poor appetite and decreased oral intake over the last several weeks. She reports that she barely eats anything at all and takes only a few sips of liquid daily. She has been continuing her medications. No additional complaints at this time. She denies fever, chills, cough, SOB, chest pain, abdominal pain, nausea, vomiting, diarrhea. No abdominal pain or urinary complaints. She does report swelling in her bilateral LE and a slight cough - fells as though she is retaining fluid in her legs. In the ER she is afebrile, HD stable, NAD ER Course: Zofran 4mg IV Morphine 4mg IV Admission Exam Per Admitting Provider General: patient extremely frail and cachectic in appearance, NAD, resting comfortably Skin: warm, dry, intact, no rashes or lesions, some skin tenting HEENT: NC/AT, PERRL, EOMI, anicteric sclera, conjunctiva without injection, external ear normal to inspection and nontender, nares patent, dry mucus membranes, dentition intact, no oropharyngeal lesions, neck supple, trachea midline, no LAD, no thyromegaly, no JVD Heart: +S1/S2, regular, no m/r/g Lungs: equal air entry bilaterally, crackles in bilateral bases Abd: +BS, soft, NT/ND, no masses/organomegaly/ascites Ext: warm, 2+ pulses in UE/LE bilaterally, no clubbing/cyanosis, 1+ pitting edema in bilateral LE Neuro: nonfocal, patient AA&O x 4, speech intact, no facial droop, moving all extremities on command with equal strength 5/5 Discharge Exam General: 64yo frail, cachectic female laying in bed, NAD, not well nourished HEENT: head atraumatic, trachea midline, mm improved/stable Resp: diminished throughout, on 3-3.5L, faint basilar crackles but no wheezing/rales, occ cough (decreased) CV: regular, +systolic murmur/diastolic murmur, bilateral LE edema MUCH IMPROVED, trace- 1+ pitting to ankles, pulses present GI: +BS, soft/scaphoid/nontender no engel, voided in bedside commode, yellow reported MSK/Neuro: generalized weakness but nonfocal, not confused Psych: AOx3, cooperative with exam Discharge Plan Discharge Items Patient Disposition: Transfer Correction Fac Reason For Visit: FALL,FAILURE TO THRIVE,BRITTNEY Discharge Diagnosis: Acute Kidney Injury, Heart Failure, Failure to Thrive, Acute on chronic respirat ory failure Condition on Discharge: Fair Goals: You have been hospitalized for an acute medical problem. During your stay at [facility], we have made an effort to correct the problem that brought you to the hospital while keeping you as comfortable as possible. Medications were used to bring your condition under control and your discharge instructions will include directions for any medications you should take after leaving the hospital. Please make sure you see your Primary Care Provider as part of your follow up plan. Activity: As commented below Non-emergency contact: Primary Care Provider, [employer] Bander, Oncologist and Javascript Front End Developer Call non-emergency contact if: you have any medication questions, your symptoms worsen, your pain is not controlled, your pain is worsening, your pain is unusual for you and you have a fever Follow-up/Referrals: Barrington Joshi MD [Primary Care Provider] - Il[facility] Bray [facility], [facility] [Physician] - Hortencia Smiley, PA-C [Physician Inbound Customer Service Representative] - Eliseo Moreno MD [Physician] - Tiffanie Perez, LIBIA [Nurse Practitioner] - (12/26 @ 11am) Diet: Regular Addtl Attending Provider Instructions: You have been hospitalized after a fall and acute kidney injury. You were seen by pulmonology to drain the fluid in the lung and suspect this is related to heart failure/volume overload, probably due to underlying valvular disease but we also have several send out tests that will need followed up for possible underlying rheumatological condition. You were treated with antibiotics for a possible pneumonia and at discharge there are several medication changes: Augmentin twice daily for another 2 days to cover for possible pneumonia. You will continue nebulizers with formoterol/budesonide and hypertonic saline twice daily. Incruse inhaler once daily. Diuretics were used to pull off fluid but have switched to INCREASED spironolactone 50mg daily. Edema in legs is improved and weights are stable and you should continue this dose of spironolactone and hold OFF lasix for now. We have your lisinopril on hold for now but can be resumed in the next couple days if needed for blood pressure if repeat chemistries are without elevation in potassium but would re commend monitoring chemistries to ensure no elevated potassium with use. Please follow up with CHF clinic, [facility] Smiley as well as pulmonology and primary care at discharge. We have HELD Jardiance for now. You should have follow up with oncology as well to consider PET scan for further evaluation but prior radiologist feels not related to concerning findings and likely from osteopenia. We have also DECREASED keppra to 250mg twice daily as level was high. You should have repeat level in outpatient follow up. Please follow up with palliative medicine in the next 4 weeks as discussed, appointment made for 12/[address] Preez. Please return to the ER with any fever/chills, worsening shortness of breath, chest pain, or for any other issues concerning for you. It has been a pleasure being a part of the medical team providing for you while you have been in the hospital. Take care! Pending Studies at Discharge: Yes Studies:: JAYESH titer, CCP IgG, RA factor, THRILL PERFORMER antibody, Sjogrens Ro/LA Stand-Alone Forms: My [facility] Skilled Items Patient informed of condition?: Yes DNR: No Discharge Level of Care: Skilled Communicable Disease: No Discharge Prognosis: Stable Lines: None Urinary Catheter: No Medications and DC Order Prescriptions: New formoterol fumarate [Perforomist] 20 mcg/2 mL Solution For Nebulization 20 mcg NEB BIDR Qty: 60 0RF spironolactone 25 mg Tablet 50 mg PO DAILY Qty: 60 0RF budesonide 0.25 mg/2 mL Suspension For Nebulization 0.25 mg NEB BIDR 30 Days Qty: 60 0RF amoxicillin-pot clavulanate 875-125 mg Tablet 1 tab PO BIDM 2 Days Qty: 4 0RF Cerovite Senior 0.4 mg-300 mcg- 250 mcg Tablet 1 tab PO QAM Qty: 30 0RF Eliquis 5 mg tablet 5 mg PO BID Qty: 60 0RF Continued sodium chloride 7 % solution for nebulization 4 ml NEB BIDR Qty: 240 0RF clopidogrel 75 mg tablet 75 mg PO QPM Qty: 90 3RF montelukast 10 mg tablet 10 mg PO QAM Qty: 90 3RF pantoprazole 40 mg tablet,delayed release (DR/EC) 40 mg PO DAILY Qty: 90 3RF amiodarone 200 mg tablet 200 mg PO QAM Qty: 90 3RF metoprolol succinate 25 mg tablet extended release 24 hr 12.5 mg PO DAILY Qty: 45 3RF mirtazapine 15 mg tablet 15 mg PO HS Qty: 90 1RF cyanocobalamin (vitamin B-12) 1,000 mcg tablet 1,000 mcg PO QAM Qty: 90 3RF Trelegy Ellipta 200-62.5-25 mcg blister with device 1 inh inhalation DAILY Qty: 60 5RF folic acid 1 mg tablet 1 mg PO QAM Qty: 90 3RF levothyroxine 150 mcg tablet 150 mcg PO DAILY Qty: 90 3RF oxycodone 5 mg tablet 5 mg PO QID PRN (Reason: pain) Qty: 120 0RF Rx Instructions: Must last 30 days. atorvastatin 40 mg tablet 40 mg PO QPM Qty: 90 3RF Tymlos 80 mcg (3,120 mcg/1.56 mL) pen injector 80 mcg subcut DAILY Qty: 1.56 11RF Rx Instructions: inject into abdomen; do not inject within 2 inches of belly button/navel; rotate sites ipratropium-albuterol 0.5 mg-3 mg(2.5 mg base)/3 mL solution for nebulization 3 ml NEB QID PRN (Reason: shortness of breath or wheezing) Changed levetiracetam [Keppra] 500 mg tablet 250 mg PO BID 90 Days Qty: 180 3RF Held lisinopril 2.5 mg tablet 2.5 mg PO QAM Qty: 90 3RF Hold Instructions: until discussed with CHF clinic dapagliflozin propanediol [Farxiga] 10 mg tablet 10 mg PO DAILY Qty: 30 2RF Hold Instructions: until seen by CHF clinic Discontinued cholecalciferol (vitamin D3) [Vitamin D3] 50 mcg (2,000 unit) tablet 4,000 unit PO QAM 90 Days Qty: 180 3RF spironolactone 25 mg tablet 25 mg PO DAILY Qty: 90 3RF magnesium oxide 400 mg (241.3 mg magnesium) Tablet 400 mg PO BID Qty: 60 0RF Rx Instructions: Over the counter No Action (DME) nebulizers [facility] See Rx Instructions .Route Qty: 1 0RF Rx Instructions: Use with albuterol and saline nebulizer solution as directed (DME) nebulizer accessories [facility] See Rx Instructions .Route Qty: 5 3RF Rx Instructions: TUBING AND ADULT ADMINISTRATION DEVICE/MASK (DME) Wheeled Walker Misc See Rx Instructions .Route Qty: 1 0RF Rx Instructions: As directed (DME) Oxygen Home Liters Per Minute See Rx Instructions .Route Rx Instructions: 3 L/min at all times as directed (DME) pen needle, diabetic [BD Aruna 2nd Gen Pen Needle] 32 gauge x 5/32" needle See Rx Instructions .Route Qty: 100 0RF Rx Instructions: As directed Discharge Orders: Discharge Order (Routine); Ordered 11/22/24 Ordered By: Becka Wallace Admission Data Admit Date/Time: 11/08/24 01:22 Attending Provider: Fernando Chu Admit Provider: Becky Sharp Primary Care Provider: Barrington Joshi Other Providers: Becky Sharp; Bryant Casas; Zahida Fabian; Omer Cole; Tiffanie Perez Other Interventions: Discharge Summary Assessment (RN) Last Done: 11/22/24 11:42 Hospital Stay Data Consultations 11/08/24 00:44 ED Decision to Admit Stat 11/09/24 08:48 Consult Nephrology Routine 11/11/24 08:45 Consult Oncology Routine 11/13/24 05:51 Consult Pulmonology Routine 11/19/24 11:38 Consult Palliative Care Routine Diagnostic Imagining Performed Chest X-Ray 11/07/24 21:55 Exam(s): XR CXR 1 VIEW EXAM: XR Chest, 1 View CLINICAL HISTORY: Reason for exam: Trauma. TECHNIQUE: Frontal view of the chest. COMPARISON: 08/19/2024 FINDINGS: Lungs: Left basilar airspace disease, similar to prior. Mild right basilar opacities suggesting atelectasis, similar to prior. Interstitial prominence bilaterally. Pleural space: Small bilateral pleural effusions, left larger than right. No pneumothorax. Heart: No cardiomegaly. Enlarged pulmonary outflow tract suggesting pulmonary arterial hypertension. Bones/joints: Sternotomy. No acute osseous findings. IMPRESSION: 1. Left basilar airspace disease, similar to prior. 2. Small bilateral pleural effusions, left larger than right. 3. Interstitial prominence bilaterally. Appearance is similar to prior and may be chronic. Component of pulmonary edema may be present as well. Electronically signed by: Crys Hester M.D. 11/07/24 23:[address] 11/07/24 21:55 Exam(s): CT L SPINE EXAM: CT Lumbar Spine Without Intravenous Contrast CLINICAL HISTORY: Reason for exam: trauma. TECHNIQUE: Axial computed tomography images of the lumbar spine without intravenous contrast. CTDI is 38.64 mGy and DLP is 546.36 mGy-cm. Automated exposure control was utilized for the study. A dose lowering technique was utilized adhering to the principles of ALARA. COMPARISON: No relevant prior studies available. FINDINGS: Vertebrae: Osteopenia. No acute fracture or traumatic subluxation. Discs/spinal canal/neural foramina: Disc heights maintained. No spinal canal stenosis. Soft tissues: Unremarkable. Vasculature: Atherosclerotic vascular disease. Other findings: Multiple focal osseous lucencies. IMPRESSION: No acute osseous findings. Multiple focal osseous lucencies. Appearance could relate to metabolic bone disease and/or myeloma. Correlate clinically. Electronically signed by: Crys Hester M.D. 11/08/24 00:[address] 11/07/24 21:55 Exam(s): CT T SPINE EXAM: CT Thoracic Spine Without Intravenous Contrast CLINICAL HISTORY: Reason for exam: trauma. TECHNIQUE: Axial computed tomography images of the thoracic spine without intravenous contrast. CTDI is 38.64 mGy and DLP is 546.36 mGy-cm. Automated exposure control was utilized for the study. A dose lowering technique was utilized adhering to the principles of ALARA. COMPARISON: No relevant prior studies available. FINDINGS: Vertebrae: Osteopenia. Multiple focus osseous lucencies. No acute fracture or subluxation. Discs/spinal canal/neural foramina: Disc degeneration in the midthoracic spine. No spinal canal stenosis. Soft tissues: Unremarkable. Pleural space: Small ucli-prbirun-fbzq-right pleural effusions. IMPRESSION: No acute osseous findings. Multiple focus osseous lucencies. Appearance could relate to metabolic bone disease and/or myeloma. Correlate clinically. Electronically signed by: Crys Hester M.D. 11/08/24 00:12 AM Abdomen/Pelvis CT 11/07/24 22:55 Exam(s): CT ABDOMEN + PELVIS Without Contrast EXAM: CT Abdomen and Pelvis Without Intravenous Contrast CLINICAL HISTORY: Reason for exam: trauma. TECHNIQUE: Axial computed tomography images of the abdomen and pelvis without intravenous contrast. CTDI is 38.64 mGy and DLP is 546.36 mGy-cm. Automated exposure control was utilized for the study. A dose lowering technique was utilized adhering to the principles of ALARA. COMPARISON: No relevant prior studies available. FINDINGS: Lung bases: Reported separately. ABDOMEN: Liver: Unremarkable. Gallbladder and bile ducts: Cholecystectomy. No ductal dilation. Pancreas: Unremarkable. No ductal dilation. Spleen: Calcified splenic granulomata. Adrenals: Unremarkable. No mass. Kidneys and ureters: Unremarkable. No hydronephrosis or radiopaque stones. Stomach and bowel: No bowel obstruction. Colonic wall thickening. PELVIS: Appendix: Appendix not visualized. Bladder: Unremarkable urinary bladder. No stones. Reproductive: Hysterectomy. ABDOMEN and PELVIS: Intraperitoneal space: Trace ascites and mesenteric edema. No free air. Bones/joints: Osteopenia. Multiple focal osseous lucencies. No acute fracture. No dislocation. Soft tissues: Anasarca. Vasculature: Atherosclerotic vascular disease. No aortic aneurysm. Lymph nodes: Unremarkable. No enlarged lymph nodes. IMPRESSION: 1. Multiple focal osseous lucencies. Appearance could be related to metabolic bone disease and/or myeloma. Correlate clinically. 2. Colonic wall thickening. Appearance raises concern for colitis. Correlate clinically. 3. No acute traumatic findings. Electronically signed by: Crys Hester M.D. 11/08/24 00:[address] 11/07/24 22:55 Exam(s): CT C SPINE EXAM: CT Cervical Spine Without Intravenous Contrast CLINICAL HISTORY: Reason for exam: Trauma. TECHNIQUE: Axial computed tomography images of the cervical [place] [address] mGy and DLP is 546.36 mGy-cm. Automated exposure control was utilized for the study. A dose lowering technique was utilized adhering to the principles of ALARA. COMPARISON: No relevant prior studies available. FINDINGS: Vertebrae: Osteopenia. Scattered focal lucencies throughout the skeleton. No acute fracture or traumatic subluxation. Discs/spinal canal/neural foramina: Mild multilevel disc degeneration. Disc-osteophyte complexes producing multilevel spinal canal stenosis, moderate at C4-C5. Soft tissues: Unremarkable. IMPRESSION: 1. No acute fracture or traumatic subluxation. 2. Osteopenia. Scattered focal lucencies throughout the skeleton. Overall appearance could represent metabolic bone disease or myeloma. Correlate clinically. Electronically signed by: Crys Hester M.D. 11/08/24 00:[address] 11/07/24 22:55 Exam(s): CT CHEST Without Contrast EXAM: CT Chest Without Intravenous Contrast CLINICAL HISTORY: Reason for exam: trauma. TECHNIQUE: Axial computed tomography images of the chest without intravenous contrast. CTDI is 38.64 mGy and DLP is 546.36 mGy-cm. Automated exposure control was utilized for the study. A dose lowering technique was utilized adhering to the principles of ALARA. COMPARISON: 06/04/2024 FINDINGS: Lungs: Bibasilar airspace disease, duev-pkfrykz-xirh-right. Interstitial prominence bilaterally suggesting pulmonary edema. No pulmonary contusion. No mass. Centrilobular emphysema. Pleural space: Small bilateral pleural effusions, smcn-tetqgif-wkpr- right. Left pleural effusion is partially loculated along the pulmonary fissure. Heart: Mitral annular calcification. Cardiomegaly and coronary artery atherosclerosis. No pericardial effusion. Bones/joints: Osteopenia. Scattered focal osseous lucencies. Prior sternotomy. No acute fracture or dislocation. Soft tissues: Unremarkable. Vasculature: Calcified thoracic aorta without aneurysm. Lymph nodes: No enlarged lymph nodes. IMPRESSION: 1. Small bilateral pleural effusions, wbbj-jbvrhhm-udnu-right. Left pleural effusion is partially loculated along the pulmonary fissure. 2. Bibasilar airspace disease, fyjv-fgtbwbq-ztso-right. Atelectasis is favored. 3. Interstitial prominence bilaterally suggesting pulmonary edema. 4. Scattered focal osseous lucencies. Overall appearance could be related to metabolic bone disease and/or myeloma. Correlate clinically. Electronically signed by: Crys Hester M.D. 11/08/24 00:[address] 11/07/24 22:55 Exam(s): CT HEAD Without Contrast EXAM: CT Head Without Intravenous Contrast CLINICAL HISTORY: Reason for exam: Trauma. TECHNIQUE: Axial computed tomography images of the head/brain without intravenous contrast. CTDI is 38.64 mGy and DLP is 546.36 mGy-cm. Automated exposure control was utilized for the study. A dose lowering technique was utilized adhering to the principles of ALARA. COMPARISON: No relevant prior studies available. FINDINGS: Brain: Generalized parenchymal volume loss. Periventricular and deep cerebral white matter hypoattenuation suggesting chronic small vessel ischemic change. Chronic lacunar infarcts bilateral basal ganglia. Sheridan- white matter differentiation maintained. No hemorrhage, mass effect, parenchymal edema, or midline shift. Ventricles: No hydrocephalus. Bones/joints: No acute fracture. Soft tissues: Unremarkable. Vasculature: Intracranial atherosclerosis. Sinuses: Unremarkable as visualized. Mastoid air cells: No significant mastoid effusion. IMPRESSION: No acute intracranial process. Electronically signed by: Crys Hester M.D. 11/08/24 00:08 AM Liver Ultrasound 11/09/24 08:50 EXAM: US Abdomen Limited INDICATION: Elevated liver function tests. TECHNIQUE: Real-time ultrasound of the abdomen with image documentation. COMPARISON: No relevant prior studies available. FINDINGS: Liver: Slightly heterogeneous and echogenic. Normal size. Smooth contour. No ductal dilatation. Gallbladder and bile ducts: Cholecystectomy. No ductal dilation or stone noted. Kidneys: Right kidney: 9.5 cm long. Normal cortical thickness and echotexture. Multiple echogenic reflections typical of stones measuring up to 9 mm. No hydronephrosis. Other vasculature: Main portal vein patent. Free fluid: Trace perihepatic ascites. Pleural space: Right pleural effusion present. IMPRESSION: 1. Heterogeneous slightly echogenic liver is nonspecific. This appearance is typically related to steatosis but can be seen with other cellular disorders. 2. No biliary dilatation. 3. Nonobstructing right kidney stones. 4. Trace perihepatic ascites and right pleural effusion. ACT 112: Positive. There are findings on this exam that require communication between the performing entity and the patient following Patient Test Result Information Act ([place] ACT 112) guidelines. Electronically signed by Miriam Ratliff 11-09-2024 12:16 PM Chest X-Ray 11/12/24 23:17 Exam(s): XR CXR 1 VIEW EXAM: XR Chest, 1 View CLINICAL HISTORY: Reason for exam: increasing oxygen requirement. TECHNIQUE: Frontal view of the chest. COMPARISON: Chest x-ray: 11/07/2024 FINDINGS: Lungs: There is increasing consolidation in the noted throughout the left lower lobe. There is increasing interstitial thickening and ground- glass consolidation in the hypoaerated left upper lobe. There is increased diffuse interstitial thickening noted in the right upper lobe. There is increased interstitial thickening and atelectasis in the right lung base. There are probable bilateral pleural effusions, left greater than right. Pleural space: No pneumothorax. Heart: There is mild to moderate cardiomegaly. Median sternotomy changes are noted. Mediastinum: Unremarkable. Normal mediastinal contour. Bones/joints: See above. IMPRESSION: 1. There is increasing consolidation in the noted throughout the left lower lobe. There is increasing interstitial thickening and ground-glass consolidation in the hypoaerated left upper lobe. There is increased diffuse interstitial thickening noted in the right upper lobe. There is increased interstitial thickening and atelectasis in the right lung base. 2. There are probable bilateral pleural effusions, left greater than right. Electronically signed by: Mark Blackmon MD 11/13/24 00:14 AM Chest X-Ray 11/13/24 10:24 XR chest 1V portable CLINICAL HISTORY: S/P Thoracentesis rule out pneumothorax COMPARISON STUDY: 11/12/2024 FINDINGS: Single view erect chest demonstrates the left pleural effusion has largely been evacuated. There is no pneumothorax. Prominent reticular nodular pulmonary opacities are redemonstrated diffusely involving both lungs. Cardiomegaly persists. Median sternotomy wire sutures are noted. There is mild blunting of the right costophrenic angle with probable adjacent discoid atelectasis. There is patchy airspace opacity in the left lung base suspicious for pneumonia. IMPRESSION: Status post left thoracentesis. No evidence of pneumothorax. Bilateral interstitial opacities remain pronounced. Trace right pleural effusion suspected. Left lower lobe infiltrate present. ACT 112: Negative or not required by law. Electronically signed by: Tiarra Sepulveda M.D. 11/13/2024 10:49 AM Chest X-Ray 11/17/24 08:04 Clinical History: Recheck effusions Technique: PA and lateral views of the chest were obtained Comparison is made to the prior examination dated 11/13/2024 Findings: Again seen are extensive interstitial opacities throughout both lungs, slightly worsened. There is new alveolar opacity in the left lower lobe. The heart size is at the upper limit of normal. No definite pneumothorax is seen. There are increased small bilateral pleural effusions No fracture is noted. Sternal wires are present Impression: 1. Increased small bilateral pleural effusions 2. New left lower lobe opacity that may be due to pneumonia 3. Slightly worsened extensive diffuse interstitial opacities that could be due to atypical pneumonia or a combination of pneumonia and chronic interstitial lung disease ACT 112: Positive. There are findings on this exam that require communication between the performing entity and the patient following Patient Test Result Information Act ([place] ACT 112) guidelines. Electronically signed by Christiano Robles 11-17-2024 09:50 AM Chest X-Ray 11/19/24 07:00 EXAM: XR chest 1V portable CLINICAL HISTORY: f/u TECHNIQUE: An X-ray image of the chest is obtained in AP projection. COMPARISON: 11/17/2024 CR. FINDINGS: Pulmonary Parenchyma: Bilateral prominent interstitial markings, especially on the right showing the marked interstitial markings.. Opacification of left mid and lower zones. Thickening of minor fissure [fissural fluid] Bilateral mild pleural reaction obscuring the costophrenic recess. Heart and Mediastinum: Cardiac shadow is enlarged with bilateral hilar congestion. No mediastinal widening or masses. No hilar or mediastinal lymphadenopathy. Bony Thorax: Status of post sternotomy. Soft Tissues: Soft tissues overlying the chest wall are unremarkable. IMPRESSION: 1. Comparing the previous x-ray dated 11/17/2024 there is interval regression in bilateral pleural effusion with interval stable opacification of the left mid and lower zone and interstitial shadowing. 2. Bilateral prominent bronchovascular/interstitial markings, especially thick interstitial markings seen on the right sugegsting cardiogenic interstitial edema. 3. Opacification of left mid and lower zone. 4. Bilateral small pleural reaction obscuring the costophrenic recess. Small bilateral pleural effusion. Electronically signed by Pineda Aguilera 11-19-2024 08:40 AM Chest X-Ray 11/20/24 09:55 XR chest 2V PA/lateral CLINICAL HISTORY: follow up COMPARISON STUDY: 11/19/2024 FINDINGS: Stable CABG. Stable cardiomegaly with mild pulmonary vascular congestion. Stable diffuse interstitial pulmonary opacities. Stable small bilateral pleural effusions and associated lung base consolidation, left greater than right. No pneumothorax. IMPRESSION: Stable exam. ACT 112: Negative or not required by law. Electronically signed by: Reginaldo Copeland M.D. 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 You were seen by pulmonology to drain the fluid in the lung and suspect this is related to heart failure/volume overload, probably due to underlying valvular disease but we also have several send out tests that will need followed up for possible underlying rheumatological condition. You were treated with antibiotics for a possible pneumonia and at discharge there are several medication changes: Augmentin twice daily for another 2 days to cover for possible pneumonia. You will continue nebulizers with formoterol/budesonide and hypertonic saline twice daily. Incruse inhaler once daily. Diuretics were used to pull off fluid but have switched to INCREASED spironolactone 50mg daily. Edema in legs is improved and weights are stable and you should continue this dose of spironolactone and hold OFF lasix for now. We have your lisinopril on hold for now but can be resumed in the next couple days if needed for blood pressure if repeat chemistries are without elevation in potassium but would recommend monitoring chemistries to ensure no elevated potassium with use. Please follow up with CHF clinic, [facility] as well as pulmonology and primary care at discharge. We have HELD Jardiance for now. You should have follow up with oncology as well to consider PET scan for further evaluation but prior radiologist feels not related to concerning findings and likely from osteopenia. We have also DECREASED keppra to 250mg twice daily as level was high. You should have repeat level in outpatient follow up. Please follow up with palliative medicine in the next 4 weeks as discussed, appointment made for 12/[address] Perez. Please return to the ER with any fever/chills, worsening shortness of breath, chest pain, or for any other issues concerning for you. It has been a pleasure being a part of the medical team providing for you while you have been in the hospital. Take care! Supervising Physician Co-Signing Physician Notes The patient was not seen by me. The chart was reviewed. Case discussed with TERRA Duncan. Agree with assessment and plan Total Time Total Time Spent Total Time Spent (In Minutes): 75 Coding Level of Care Code 72486 INP/OBS DISCH >30 MIN Diagnoses Failure to thrive in adult R62.7 Acute CHF I50.9 Chronic respiratory failure with hypoxia J96.11 Pneumonia J18.9 Laterality: left Lung location: lower lobe of lung Pneumonia type: due to unspecified organism BRITTNEY (acute kidney injury) N17.9 Bone lesion M89.9 Valvular heart disease I38 Hypomagnesemia E83.42 Paroxysmal atrial flutter I48.92
[2024-11-22] MEDS ORDERED: AMOXICILLIN/CLAVULANATE 875 MG TAB PO SCH (17:00)
[2024-11-23 01:02] LABS: Anti Nuclear Antibody Screen NEGATIVE (NEGATIVE)
== END 2024-11-22 13:52 | DRG 291 ==
LOC: ED 21:48 → SUATTDRO 11-08 01:22 → 3E 11-08 01:22 → 2E 11-13 00:20 → 3N 11-15 23:12